=== PATIENT | male | born 1935 | race Caucasian/White ===

== ENCOUNTER 2018-02-20 09:27 | Emergency (ER) | payer MEDICARE ==
[~2018-02-20] VITALS: Ht 157.5 cm; Wt 66.4 kg
[~2018-02-20 09:27] MED LIST: ACET325T49 PO; ASP81TEC PO; CARB1TAB6 PO; CARBIDOPA PO; CHOL100011 PO; DIVA250T2 PO; DULO30CA3 PO; Divalproex Sodium PO; ENLP5T PO; HYDR-3714 PO; LACTAID9000 UNIT PO; LEVODOPA PO; MAGN400O7 PO; PNT40TEC PO; PROPANOLOL PO; Propranolol Hcl PO; SENN-140 PO; SENN1TAB76 PO; SERT25TA PO; SMV20T PO; TRAM50TA2 PO; [UNRECOGNIZED DRUG - CODE] PO
--- NOTE | 2018-02-20 10:49 | Diagnostic Imaging Report ---
PATIENT HISTORY: Pain after fall. TECHNIQUE: Single frontal view of the pelvis. COMPARISON: 12/08/2015. FINDINGS: There is diffuse osteopenia. There is a left hip hemiarthroplasty. No hardware complication is seen. No acute fracture is seen in the pelvis, although the sacrum is suboptimally evaluated due to overlying bowel gas and osteopenia. There is calcific atherosclerosis. The femoral heads are well seated in the acetabula bilaterally. 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 IMPRESSION: 1. Osteopenia and left hip hemiarthroplasty without acute osseous abnormality seen on this single view of the pelvis. Dictated by: Dictated on workstation # [id number]
--- NOTE | 2018-02-20 10:55 | Diagnostic Imaging Report ---
INDICATION: Fall, low back pain radiating to the bilateral upper legs. TECHNIQUE: 2 views of the bilateral femurs. COMPARISON: 12/08/2015 and 08/24/2015 FINDINGS: There is diffuse osteopenia. The proximal right femur has a somewhat coxa vera appearance, but no acute fracture is seen. Alignment appears normal with the femoral head well-seated in the acetabulum. There is calcific atherosclerosis. The left hip demonstrates a hemiarthroplasty with no hardware complication seen. Alignment of the left femur appears normal with no acute fracture seen. There is calcific atherosclerosis present. IMPRESSION: No acute osseous abnormality is seen in the bilateral femurs. There is a left hip arthroplasty without hardware complication seen. Dictated by: Dictated on workstation # [id number]
--- NOTE | 2018-02-20 10:59 | ED Fall/Injury ---
General Chief Complaint: Trauma-Non Activation Stated Complaint: FELL,LOWER BACK PAIN Nursing Triage Note: PT TO RM 3 IN A W/C WITH CC OF LOW BACK PAIN A FALL GETTING OUT OF BED THIS A.M. PAIN RADIATES INTO BOTH UPPER LEGS. 1000 MG TYLENOL AFTER THE FALL. Source: patient, family History of Present Illness Date Seen by Provider: Feb 20, 2018 Time Seen by Provider: 09:32 Initial Comments PT ARRIVES VIA POV FROM HOME, WITH SON AND DAUGHTER. PT LIVES WITH SON PT STATES HE FELL GETTING OUT OF BED THIS MORNING, STATES HE LANDED HARD ON HIS BUTT OCCURRED AROUND [id number] THIS MORNING DID NOT HIT HEAD AND NO LOSS OF CONSCIOUSNESS C/O LOWER BACK PAIN , AND IS WORSE WITH STANDING. DOES HAVE CHRONIC LOWER BACK PAIN STATES BOTH THIGHS HURT WHEN HE STANDS NO PARESTHESIAS OR MOTOR DEFICITS NO PROBLEMS URINATING DENIES ANY OTHER INJURIES OR AREAS OF PAIN PT NORMALLY USES A WALKER, BUT ALSO HAS A WHEELCHAIR AT HOME PCP: DR. AKHTAR ORTHOPEDIC SURGEON: DR. AGUAYO Allergies and Home Medications Allergies Coded Allergies: Cobamamide (Unverified Allergy, Unknown, MEMORY LOSS, 01/18/14) cyanocobalamin (Unverified Allergy, Unknown, MEMORY LOSS, 01/18/14) fentanyl (Verified Allergy, Unknown, 12/08/15) morphine (Verified Allergy, Unknown, 12/08/15) codeine (Unverified Adverse Reaction, Mild, SICK, 08/23/15) promethazine HCl (Unverified Adverse Reaction, Mild, LOSS OF MEMORY, ) hydrocodone (Verified Adverse Reaction, Unknown, 12/08/15) low blood pressure Uncoded Allergies: narcotics (Adverse Reaction, Unknown, 12/08/15) Home Medications Acetaminophen 325 Mg Tablet, 325-650 MG PO Q6H PRN for Temp over 100 F or Mild Pain Prescribed by: NAPOLEON AKHTAR on 08/30/15 0847 Aspirin 81 Mg Tabec, 81 MG PO DAILY, (Reported) Carbidopa/Levodopa 1 Each Tablet, 1 EACH PO DAILY Prescribed by: AKANKSHA ROCHA on 08/23/15 1810 Cholecalciferol 1,000 Unit Capsule, 5,000 UNIT PO DAILY, (Reported) Enalapril Maleate 5 Mg Tab, 5 MG PO BID Prescribed by: STEPHANIA DORSEY on 02/24/15 1347 Pantoprazole Sod 40 Mg Tab, 40 MG PO HS, (Reported) Sennosides 8.6 Mg Tablet, 8.6 MG PO BID Prescribed by: NAPOLEON AKHTAR on 08/30/15 0847 Sertraline HCl 25 Mg Tablet, 25 MG PO HS take 1/2 tab at hs Prescribed by: AKANKSHA ROCHA on 08/23/15 1808 Simvastatin 20 Mg Tab, 20 MG PO HS, (Reported) Tramadol HCl 50 Mg Tablet, 50 MG PO Q4H Prescribed by: MEREDITH SHAW on 02/20/18 1138 [Divalproex Sodium] 250 MG TAB, 250 MG PO BID Prescribed by: STEPHANIA DORSEY on 02/24/15 1347 [Propranolol Hcl] 20 MG TABLET, 40 MG PO BID Prescribed by: AKANKSHA ROCHA on 08/23/15 180 Patient Home Medication List Home Medication List Reviewed: Yes Review of Systems Constitutional: no symptoms reported Respiratory: no symptoms reported Cardiovascular: no symptoms reported Gastrointestinal: no symptoms reported Genitourinary: no symptoms reported Musculoskeletal: see HPI Skin: no symptoms reported Psychiatric/Neurological: No Symptoms Reported Past Vsfkyyb-Rprdbo-Phpppm Hx Patient Social History Alcohol Use: Denies Use Recreational Drug Use: No Smoking Status: Former Smoker Former Smoker, Quit: December 10, 1986 Recent Foreign Travel: No Contact w/Someone Who Travel: No Recent Infectious Disease Expo: No Recent Hopitalizations: No Immunizations Up To Date Tetanus Booster (TDap): Unknown Date of Pneumonia Vaccine: May 17, 2012 Date of Influenza Vaccine: May 12, 2015 Seasonal Allergies Seasonal Allergies: No Past Medical History Surgeries: Yes (LT HIP FX/HEMIARTHROPLASTY; LEFT 4TH FINGER AMPUTATION; CATARACTS; UMBILICAL HERNIA REPAIR; HIATAL HERNIAR REPAIR; LEFT THUMB TENDON REPAIR; ATRIAL CLIP PROCEDURE) Abdominal, Amputation, Eye Surgery, Joint Replacement, Orthopedic, Pacemaker Respiratory: Yes Asthma Cardiac: Yes (PACEMAKER; ATRIAL CLIP PROCEDURE XCLIP DISSOLVS) Hypertension Neurological: Yes (CVA WITH LEFT SIDE WEAKNESS, DYSPHASIA AND DYSPHAGIA AND POOR COORDINATION) Parkinson's Disease, Stroke Reproductive Disorders: No Sexually Transmitted Disease: No HIV/AIDS: No Genitourinary: Yes Benign Prostatic Hyperpl, Prostate Problems, Kidney Stones Gastrointestinal: Yes (LACTOSE INTOLERANT; HIATAL AND UMBILICAL HERNIA REPAIRS) Abdominal Hernia, Gastroesophageal Reflux, Chronic Constipation, Hiatal Hernia, Ulcer Musculoskeletal: Yes (LEFT HIP FX; LEFT 4TH FINGER AMPUTATION; L1 COMPRESSION FRACTURE; FREQUENT FALLS) Degenerate Disk Disease, Arthritis, Chronic Back Pain, Fractures Endocrine: No HEENT: Yes (DYSPHAGIA FROM CVA; CATARACTS/LENS IMPLANTS) Cataract Hearing Impairment: Denies Cancer: No 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) Depression Integumentary: Yes (RASH IN SUMMER AT TIMES) Pruritis Blood Disorders: No Adverse Reaction/Blood Tranf: No Family Medical History Cancer G8 BROTHER G8 BROTHER G8 SISTER Cancer of colon G8 BROTHER Cataract 19 FATHER Congestive heart failure 19 FATHER Family history: Allergy DAUGHTER Family history: Alzheimer's disease 19 FATHER Family history: Breast disease G8 SISTER No Family History of: Abdominal aortic aneurysm Sacaton's disease Alcoholism Aphasia Chest pain Congenital heart disease Cystic fibrosis Dementia Dysphagia Family history: Arthritis Family history: Asthma Family history: Cardiovascular disease Family history: Coronary thrombosis Family history: Diabetes mellitus Family history: Gastrointestinal disease Family history: Glaucoma Family history: Hypertension Family history: Osteoporosis Family history: Thyroid disorder Headache Hearing loss Heart disease Hereditary disease History of - anemia History of - disorder History of - respiratory disease History of drug abuse Human immunodeficiency virus (HIV) seropositivity Hypercholesterolemia Infertile Kidney disease Malignant neoplasm of lung Myocardial infarction Parkinson's disease Prostate cancer Psychotic disorder Seizure disorder Stroke Tuberculosis Visual impairment Physical Exam Vital Signs Vital Signs - First Documented 02/20/18 09:40 Temp 98.3 Pulse 63 Resp 20 B/P (MAP) 126/90 (102) Pulse Ox 93 O2 Delivery Room Air Capillary Refill : Less Than 3 Seconds Height, Weight, BMI Height: 5'2.00" Weight: 146lbs.6.40oz.66.762259vw; 21.09 BMI Method:Stated General Appearance: WD/WN, no apparent distress Neck: non-tender, full range of motion Cardiovascular: regular rate, rhythm, no murmur Respiratory: normal breath sounds Gastrointestinal: soft Back: no CVA tenderness, vertebral tenderness (LUMBAR AND SACARAL AND POSTERIOR ILIAC AREAS. ) Extremities: non-tender, no pedal edema, no calf tenderness, normal capillary refill Neurologic/Psychiatric: meteorological aide II-XII nml as tested, no motor/sensory deficits, alert, normal mood/affect, oriented x 3 Skin: normal color, warm/dry, other (NO EXTERNAL EVIDENCE OF TRAUMA) Progress/Results/Core Measures Results/Orders My Orders Orders - MEREDITH SHAW DO Ct Thoracic/Lumbar Spine Wo (02/20/18 09:37) Pelvis (02/20/18 09:37) Femur, Bilateral, 2 Views (02/20/18 09:41) Ketorolac Injection (Toradol Injection) (02/20/18 11:45) Tramadol Tablet (Ultram Tablet) (02/20/18 11:45) Medications Given in ED Current Medications Medications Dose Ordered Sig/Oliverio Route Start Time Stop Time Status Last Admin Dose Admin Ketorolac Tromethamine 60 mg ONCE ONCE IM 02/20/18 11:45 02/20/18 11:46 DC 02/20/18 11:51 60 MG Tramadol HCl 50 mg ONCE ONCE PO 02/20/18 11:45 02/20/18 11:46 DC 02/20/18 11:51 50 MG Vital Signs/I&O 02/20/18 02/20/18 02/20/18 09:40 11:51 11:51 Temp 98.3 98.3 98.3 Pulse 63 Resp 20 B/P (MAP) 126/90 (102) Pulse Ox 93 O2 Delivery Room Air Blood Pressure Mean: 102 Progress Progress Note : Progress Note FAMILY IS COMFORTABLE TAKING PT HOME FAMILY REPORTS THAT PT DOES NOT DO WELL WITH NARCOTICS. HAS TAKEN TRAMADOL WITHOUT PROBLEMS Diagnostic Imaging Comments XRAYS OF BILATERAL FEMURS--NO ACUTE PROCESS, LEFT HIP HARDWARE IN PLACE PELVIS XRAY--NO ACUTE PROCESS PER RADIOLOGIST REPORTS @ 1059 CT THORACIC AND LUMBAR SPINE--LEFT SACRAL ALA FRACTURE, NON-DISPLACED. OLD/ STABLE L1 COMPRESSION FRACTURE, DEGENERATIVE CHANGES OF SPINE--PER RADIOLOGIST REPORT @ 1125 Reviewed: Reviewed by Me Departure Impression Primary Impression: Status post fall Additional Impressions: FRACTURE LEFT SACRAL ALA CHRONIC COMPRESSSION FRACTURE L1 Disposition: HOME, SELF-CARE Condition: Stable Departure-Patient Inst. Referrals: REFUGIO AGUAYO MD, JACQUELINE S DO (PCP/Family) Primary Care Physician Patient Instructions: Coccyx Fracture (DC), Vertebral Compression Fracture (DC) Add. Discharge Instructions: USE YOUR WALKER AT ALL TIMES GET UP AND WALK SEVERAL TIMES A DAY FOLLOW UP WITH DR. AGUAYO IN A FEW DAYS FOR FURTHER CARE--CALL TODAY FOR APPOINTMENT All discharge instructions reviewed with patient and/or family. Voiced understanding. Scripts [Donut Seat Cushion] No Conflict Check DAILY PRN for Pain, #1 Prov: MEREDITH SHAW DO 02/20/18 Tramadol HCl (Ultram) 50 Mg Tablet 50 MG PO Q4H, #20 TAB Prov: MEREDITH SHAW DO 02/20/18 MEREDITH SHAW DO Feb 20, 2018 10:59
--- NOTE | 2018-02-20 11:17 | Diagnostic Imaging Report ---
PATIENT HISTORY: Fall with low back pain radiating into the legs. TECHNIQUE: Noncontrast axial CT of the thoracic and lumbar spine was performed, with sagittal and coronal reformats. COMPARISON: CT from 08/24/2015. FINDINGS: CT thoracic spine: There is mild left convex curvature of the upper thoracic spine centered at T3, with no spondylolisthesis seen. There is diffuse osteopenia. The vertebral body heights are generally preserved. There are mild multilevel degenerative changes. No significant spinal canal or foraminal stenosis is seen. There is atelectasis in the bilateral lungs. No paraspinous masses are seen. CT lumbar spine: There is a chronic mild compression deformity of L1 which appears unchanged. This causes minimal 2 mm retropulsion without significant spinal canal stenosis. No spinal canal stenosis is seen throughout the lumbar spine, although there is mild neuroforaminal narrowing at L3-L4 and L4-L5 bilaterally. No acute fractures seen in the lumbar spine. There is a nondisplaced fracture of the left sacral ala, in zone 1. No definite right sacral fracture is seen. There is calcific atherosclerosis. Nonobstructing calculi are seen in the left kidney. There is a 2.5 x 1.4 cm left adrenal nodule which appears stable since 2015. IMPRESSION: 1. Nondisplaced fracture of the left sacral ala. No definite fracture is seen in the right sacrum, however if clinically indicated, MRI could be performed. 2. Chronic mild compression deformity of L1 appears unchanged. No new compression fracture is seen in the thoracic or lumbar spine. 3. Mild multilevel degenerative changes with no significant spinal canal stenosis. Dictated by: Dictated on workstation # [id number]
[2018-02-20] MEDS ORDERED: TRAM-42 PO (11:38)
[2018-02-20] MEDS ORDERED: [UNRECOGNIZED DRUG - SUPPLY] (11:40)
[2018-02-20] MEDS ORDERED: KETOROLAC 60 MG/2 ML VIAL IM ONE (11:45)
[2018-02-20 13:18] VITALS: BP 122/84
[2018-03-18] MEDS ORDERED: METO-387 PO (13:15)
== END 2018-02-20 13:18 | disposition home or self-care (01) ==
LOC: EDUNIT# 09:27 → ER 09:29
DX: S32.010A Wedge compression fracture of first lumbar vertebra, initial encounter for closed fracture (principal); S32.19XA Other fracture of sacrum, initial encounter for closed fracture; J45.909 Unspecified asthma, uncomplicated; I10 Essential (primary) hypertension; G20 Parkinson's disease; F32.9 Major depressive disorder, single episode, unspecified; K21.9 Gastro-esophageal reflux disease without esophagitis; Z87.19 Personal history of other diseases of the digestive system; Z80.0 Family history of malignant neoplasm of digestive organs; Z87.448 Personal history of other diseases of urinary system; Z82.49 Family history of ischemic heart disease and other diseases of the circulatory system; Z87.442 Personal history of urinary calculi; Z86.73 Personal history of transient ischemic attack (TIA), and cerebral infarction without residual deficits; Z88.5 Allergy status to narcotic agent; Z88.8 Allergy status to other drugs, medicaments and biological substances; Z79.82 Long term (current) use of aspirin; Z87.891 Personal history of nicotine dependence; Z96.642 Presence of left artificial hip joint; Z89.022 Acquired absence of left finger(s); Z98.890 Other specified postprocedural states; Z95.0 Presence of cardiac pacemaker; W06.XXXA Fall from bed, initial encounter
CPT/HCPCS: 72128; 72131; 72170; 96372

== ENCOUNTER 2018-03-03 14:39 | Inpatient (IN) | payer MEDICARE ==
[~2018-03-03] VITALS: Ht 162.6 cm; Wt 75.4 kg
[~2018-03-03 14:39] MED LIST changes: +TRAM-42 PO; +[UNRECOGNIZED DRUG - SUPPLY]
--- OUTSIDE RECORDS SUMMARY | 2018-03-03 14:43 | XMS REPORT | Clinical Summary ---
Author Author [facility] Organization [facility] Address Unknown Phone Unavailable Care Team Providers Care General Utility Machine Operator Name Role Phone Jailene Sneed MD PCP Miriam Kang MD [address] Unavailable Unavailable Brigid Aquino RN Unavailable Unavailable Hyun Talbert RN Unavailable Unavailable Source Comments Some departments are not documenting in the electronic medical record. If you do not see the information that you expected, contact Release of Information in the Health Information Management department at [phone] for further assistance in locating additional records.[facility] Allergies Active Allergy Reactions Severity Noted Date Comments Cyanocobalamin-Cobamamide MENTAL STATUS CHANGES 05/04/2011 Family states causes severe mental status changes for weeks Codeine NAUSEA AND VOMITING 05/04/2011 All narcotics. Family states patient is not able to vomit so avoid any narcotics/meds that make him nauseous Morphine NAUSEA AND VOMITING 05/21/2011 Promethazine MENTAL STATUS CHANGES 05/04/2011 Family states causes severe mental status changes for "months" Current Medications Prescription Sig. Disp. Refills Start End Date Status Date enalapril (VASOTEC) 5 mg Take 5 mg by mouth twice Active PO tablet daily. simvastatin (ZOCOR) 20 mg Take 20 mg by mouth at Active PO tablet bedtime daily. sertraline (ZOLOFT) 25 mg Take 25 mg by mouth at Active PO tablet bedtime daily. aspirin EC 81 mg PO Take 81 mg by mouth Active tablet daily. divalproex (DEPAKOTE) 250 Take by mouth as Active mg tablet directed. 250 mg in AM, 500 mg in PM cholecalciferol (Vitamin Take by mouth as Active D3) (VITAMIN D-3) 1,000 directed. 3000 units in units tablet AM, 2000 units in PM LACTOSE PO Take by mouth as Needed. Active Active Problems Problem Noted Date Seizures ([facility]) 01/19/2014 Overview: Mini seizures with mental status changes without depakote At high risk for falls 01/14/2014 Overview: 01/14/14 high fall risk. Patient and family were given the [facility] "What You Can Do To Prevent Falls" brochure. Patient will be accompanied by a staff member while ambulating in clinic. High fall risk status will be communicated to receiving staff if patient visits another department while under [facility] staff care. Patient verbalizes an understanding. Last Assessment & Plan: 01/14/14 high fall risk. Patient and family were given the [facility] "What You Can Do To Prevent Falls" brochure. Patient will be accompanied by a staff member while ambulating in clinic. High fall risk status will be communicated to receiving staff if patient visits another department while under [facility] staff care. Patient verbalizes an understanding. CAD (coronary artery disease) 01/14/2014 Overview: 2010 CCTA moderate coronary calcium noted 01/14/14 Cardiac cath, echo, CTA, pulm fxn, evaluation for BINH clip 01/14/14: Cardiac cath: non obstructive CAD, 30% proximal LAD otherwise stable. EF 40-45%, anterior HK. Atrial fibrillation ([facility]) 01/14/2014 Cardiac pacemaker in situ 12/30/2012 Overview: 04/19/2011 24hr Holter: Max HR 97, Min HR 36, Avg HR 54. Freq unifocal PVCs. Marked SB w/ freq pauses, max pause 2.5sec. Second-degree atrioventricular block; Wenckebach phenomenon 05/21/2011 - dual chamber [employer] Osvaldo pacemaker implantation L ast Assessment & Plan: 4 episodes atrial flutter lasting seconds since last check. Pt does not feel AF with PPM. 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 06/05/12 CXR - Unchanged moderate elevation of the hemidiaphragm without acute disease in chest. L ast Assessment & Plan: Pt's daughter, Bette, would like Dr. Wilson to let her know which access he'll use for ArtiClip when this is known. As legal guardian, Bette requests the final copies of all studies completed this hospitalization including lab. Paroxysmal atrial fibrillation (HCC) 2012 Overview: 08/01/11- Pt worked up for Lariat but not a candidate due to anatomy 06/05/12 - Relatively low AFib burden. Most episodes less than 2 minutes or so. May be a candidate for [employer]do plug study in the future. 12/30/12 - Afib burden continues to be overall low. However concern over anticoagulation if burden increases. Referred to CTS - Dr. Wilson for consideration of Atriclip. 02/10/13 - Dr. Wilson determined pt would be a candidate for an Atriclip procedure. Pt requests time to make decision regarding going forward with surgery. 12/08/13 Paroxysmal atrial fibrillation with a prior history of hemorrhagic stroke, not on any anticoagulation: His overall arrhythmia burden is low but still with his risk factors being so high, an embolic event is still a great possibility. 01/15/14 Dr Wilson left VATS with placement of AtriClip L ast Assessment & Plan: 1. Pre-procedure instructions were reviewed and questions answered. 2. Prelab was reviewed as above 3. Pre procedure EKG completed revealing LBBB vs ventricular pacing rhythm. PPM check revealed 4 episodes of atrial flutter lasting seconds. 4. The patient is accompanied by his legal guardian & daughter, Bette Swift, cell #[phone]. She works in a primary care office in [place]. Very knowledgeable & helpful. 5. The patient was taken to the [facility] Admitting office at 9:15. 6. Patient is a high fall risk s/p CVA with left sided weakness & neglect. 7. Note ARMIJO at about 50 yards with left diaphragm elevation. OK to lie flat & on his sides without dyspnea. 8. Note: Mini seizures & confusion without depakote. 9. Note: allergies to codeine, morphine & phenergan. No known difficulties with anesthesias. Hypertension 05/03/2011 Overview: Vasotec 5mg BID L ast Assessment & Plan: Blood pressure to goal on current therapy. History of intracranial hemorrhage 05/03/2011 Overview: 07/25/2008, Right sided hemorrhage. Left sided hemiplegia including decreased vision & neglect Hyperlipidemia 05/03/2011 Overview: zocor 20mg one po daily L ast Assessment & Plan: Per his report, lipids are managed by Dr. Quiñonez's office. Osteoarthritis 05/03/2011 History of hemorrhagic stroke with residual 05/03/2011 Overview: 07/25/2008 secondary to intracranial hemorrhage Muscle weakness 05/03/2011 Overview: Located diffusely, >left Prostatic hypertrophy 05/03/2011 Overview: Previous surgery Family History Medical History Relation Name Comments High Cholesterol Daughter Bette Alzheimer's Father 92 yo Heart Failure Father 92 yo Cancer Half Brother colon Cancer Half Brother leukemia Cancer Half Sister breast High Cholesterol Son Racheal Relation Name Status Comments Daughter Bette Alive Father 92 yo Half Brother Alive Half Brother colon Half Brother leukemia Half Sister Alive Half Sister Alive Half Sister breast Alive Mother 32 yo Son Racheal Alive Social History Tobacco Use Types Packs/Day Years Used Date Former Smoker 1 18 Smokeless Tobacco: Never Used Tobacco Cessation: Counseling Given: No Alcohol Use Drinks/Week oz/Week Comments No Sex Assigned at Date Recorded Not on file Last Filed Vital Signs Vital Sign Reading Time Taken Blood Pressure 140/92 03/23/2014 10:47 AM CDT Pulse 62 03/23/2014 10:47 AM CDT Temperature 36.9 C (98.4 F) 01/17/2014 11:25 AM CDT Respiratory Rate - - Oxygen Saturation 97% 02/23/2014 12:54 PM CDT Inhaled Oxygen - - Concentration Weight 77.7 kg (171 lb 6.4 oz) 03/23/2014 10:47 AM CDT Height 160 cm (5' 3") 03/23/2014 10:47 AM CDT Body Mass Index 30.36 03/23/2014 10:47 AM CDT Plan of Treatment Health Maintenance Due Date Last Done Comments PHYSICAL (COMPREHENSIVE) 1944 EXAM PERTUSSIS VACCINE 1948 TETANUS VACCINE 1954 SHINGLES RECOMBINANT 12/30/1987 VACCINE (1 of 2) PNEUMONIA (PCV13/PPSV23) 2002 VACCINES (1 of 2 - PCV13) INFLUENZA VACCINE 05/12/2018 Results Not on filefrom Last 3 Months
--- OUTSIDE RECORDS SUMMARY | 2018-03-03 14:44 | XMS REPORT ---
Author Author Farrukh Johnson Organization [facility] Address [address] [place], [place] [id number] Care Team Providers Care Reservation Sales Agent Name Role Phone Farrukh Johnson PCP Unavailable Allergies and Adverse Reactions Name Reaction Notes Morphine Sulfate nausea Plan of Treatment Planned Activity Comments Planned Date Planned Time Plan/Goal ASSAY OF PSA TOTAL 10/18/2014 12:00 AM ASSAY OF PSA FREE 10/18/2014 12:00 AM ASSAY OF PSA TOTAL 05/22/2016 12:00 AM Medications Active Name Start Date Estimated Completion Date SIG Comments Mucinex 600 mg oral tablet extended release 12hr 08/10/2009 take 1 tablet (600 mg) by oral route every 12 hours Name Start Date Expiration Date SIG Comments Zoloft 50 mg oral tablet 07/18/2009 08/17/2009 1QD - TAKE ONE TABLET BY MOUTH EVERY DAY amlodipine 5 mg oral tablet 07/15/2009 08/14/2009 enalapril maleate 5 mg oral tablet 07/15/2009 08/14/2009 sertraline 50 mg oral tablet 07/18/2009 08/17/2009 Levaquin 750 mg oral tablet 08/10/2009 08/15/2009 take 1 tablet (750 mg) by oral route once daily for 5 days Vasotec 5 mg oral tablet 08/11/2009 09/10/2009 1QD - TAKE ONE TABLET BY MOUTH EVERY DAY Problem List Description Status Onset Benign Hypertrophy of Prostate (BPH) Active 07/06/2014 Slowing of Urinary Stream Active 10/18/2014 Benign non-nodular prostatic hyperplasia without lower urinary tract symptoms Active 04/28/2015 Frequent urination Active 11/17/2015 Adenofibromatous hypertrophy of prostate Active 11/17/2015 Vital Signs Date Time BP-Sys(mm[Hg] BP-Indira(mm[Hg]) HR(bpm) RR(rpm) Temp WT HT HC BMI BSA BMI Percentile O2 Sat(%) 11/17/2015 11:14:00 AM 157 lbs 64 in 26.95 kg/m2 1.79 m2 04/28/2015 12:01:00 PM 176 lbs 64 in 30.21 kg/m 1.8987 m 10/18/2014 10:03:00 AM 175 lbs 64 in 30.04 kg/m2 1.89 m2 07/06/2014 10:43:00 AM 174 lbs 64 in 29.8667 kg/m 1.8878 m 08/10/2009 10:50:00 AM 122 mmHg 84 mmHg 56 bpm 20 rpm 96.8 F 179 lbs 65 in 29.79 kg/m2 1.93 m2 Social History Name Description Comments Quit Smoking History of Procedures Date Ordered Description Order Status 04/28/2015 12:00 AM ASSAY OF PSA TOTAL Reviewed 04/28/2015 12:28 PM URINALYSIS AUTO W/O SCOPE Reviewed 07/06/2014 11:10 AM URINALYSIS AUTO W/O SCOPE Reviewed Results Summary Data and Description Results 02/08/2009 12:00 AM PSA SerPl-mCnc 0.440 ng/mL 04/13/2009 12:00 AM Cholest Cry Stone Ql IR 205.0 % 08/10/2009 11:22 AM Colonoscopy-Women and Men over 50 Declined 07/06/2014 11:10 AM Bilirub Ur Ql Strip -ve Glucose Ur-sCnc -ve Hgb Ur Ql Strip -ve Ketones Ur Ql Strip -ve Nitrite Ur Ql Strip -ve pH Ur-LsCnc 6.0 Prot Ur Ql Strip -ve Sp Gr Ur Qn 1015 Urobilinogen Ur-mCnc -ve WBC Est Ur Ql Strip - ve 04/28/2015 12:28 PM Clarity Ur CLEAR Color Ur ----- Glucose Ur-sCnc -VE Bilirub Ur Ql Strip -VE Ketones Ur Ql Strip -VE Sp Gr Ur Qn 1015 Hgb Ur Ql Strip -VE pH Ur-LsCnc 6.0 Prot Ur Ql Strip -VE Urobilinogen Ur-mCnc -VE Nitrite Ur Ql Strip -VE WBC Est Ur Ql Strip -VE History Of Immunizations Not available. History of Past Illness Name Date of Onset Comments Bronchitis, Acute Aug 10 2009 11:00AM Hypertension Hyperlipidemia stroke Benign Hypertrophy of Prostate (BPH) 07/06/2014 Slowing of Urinary Stream 10/18/2014 Benign non-nodular prostatic hyperplasia without lower urinary tract symptoms 04/28/2015 Frequent urination 11/17/2015 Adenofibromatous hypertrophy of prostate 11/17/2015 Mild Benign Hypertrophy of Prostate (BPH) Jul 06 2014 10:45AM Benign hypertrophy of prostate Oct 18 2014 10:10AM Slowing of Urinary Stream Oct 18 2014 10:10AM Benign prostatic hypertrophy Apr 28 2015 11:48AM Benign non-nodular prostatic hyperplasia without lower urinary tract symptoms Apr 28 2015 12:01PM Adenofibromatous hypertrophy of prostate Nov 17 2015 11:15AM Frequent urination Nov 17 2015 11:15AM BPH (benign prostatic hypertrophy) May 22 2016 3:53PM Screening for prostate cancer May 22 2016 3:53PM Frequent urination May 22 2016 3:53PM Payers Insurance Name Company Name Plan Name Plan Number Policy Number Policy Group Number Start Date Medicare Part B Medicare Of [place] [id number] December BCBS [facility] [id number] Sunday, 2008 History of Encounters Visit Date Visit Type Provider 11/17/2015 Office visit V Siobhan Johnson MD 04/28/2015 Office visit V Siobhan Johnson MD 10/18/2014 Office visit V Siobhan Johnson MD 07/06/2014 Office visit V Siobhan Johnson MD 01/29/2010 Laboratory Bobby Burns MD 11/17/2009 Nurse visit Saul Villeda DO 08/10/2009 Office visit Caryl POSADA 04/13/2009 Laboratory Saul Villeda DO
--- OUTSIDE RECORDS SUMMARY | 2018-03-03 14:44 | XMS REPORT ---
Author Author Farrukh Johnson Organization [facility] Address [address] [place], [place] [id number] Care Team Providers Care Astrophysics Teacher Name Role Phone Farrukh Johnson PCP Unavailable Allergies and Adverse Reactions Name Reaction Notes Morphine Sulfate nausea Plan of Treatment Planned Activity Comments Planned Date Planned Time Plan/Goal PSA screening 10/18/2014 12:00 AM PSA screening 10/18/2014 12:00 AM Medications Active Name Start Date [...] 11/17/2015 Adenofibromatous hypertrophy of prostate Active 11/17/2015 Chronic right-sided low back pain without sciatica Active 06/13/2016 Urgency of micturition Active 06/18/2017 Frequency of micturition Active 06/18/2017 Vital Signs Date Time BP-Sys(mm[Hg] BP-Indira(mm[Hg]) HR(bpm) RR(rpm) Temp WT HT HC BMI BSA BMI Percentile O2 Sat(%) 06/18/2017 10:50:00 AM 138 mmHg 80 mmHg 70 bpm 18 rpm 164 lbs 64 in 28.15 kg/m2 1.83 m2 96 % 06/13/2016 9:19:00 AM 157 lbs 64 in 26.9487 kg/m 1.7932 m 11/17/2015 11:14:00 AM 157 lbs 64 in [...] 12:28 PM URINALYSIS AUTO W/O SCOPE Reviewed 05/22/2016 12:00 AM ASSAY OF PSA TOTAL Reviewed 06/13/2016 10:08 AM URINALYSIS AUTO W/O SCOPE Reviewed 07/06/2014 11:10 AM URINALYSIS AUTO W/O SCOPE Reviewed Results Summary Date and Description Results 07/06/2014 11:10 AM Bilirub Ur Ql Strip [...] -VE WBC Est Ur Ql Strip -VE 06/11/2016 2:40 PM PSA TOTAL 0.420 ng/mL History Of Immunizations Not available. History of Past Illness Name Date of Onset Comments Bronchitis, Acute Aug 10 2009 11:00AM Hypertension Hyperlipidemia stroke Benign Hypertrophy of Prostate (BPH) 07/06/2014 Slowing of Urinary Stream 10/18/2014 Benign non-nodular prostatic hyperplasia without lower urinary tract symptoms 04/28/2015 Frequent urination 11/17/2015 Adenofibromatous hypertrophy of prostate 11/17/2015 Chronic right-sided low back pain without sciatica 06/13/2016 Urgency of micturition 06/18/2017 Frequency of micturition 06/18/2017 Mild Benign Hypertrophy of Prostate (BPH) Jul [...] 3:53PM Frequent urination May 22 2016 3:53PM Adenofibromatous hypertrophy of prostate Jun 13 2016 9:20AM Frequent urination Jun 13 2016 9:20AM Chronic right-sided low back pain without sciatica Jun 13 2016 9:20AM Adenofibromatous hypertrophy of prostate Jun 18 2017 10:53AM Frequency of micturition Jun 18 2017 10:53AM Urgency of micturition Jun 18 2017 10:53AM Payers Insurance Name Company Name Plan Name Plan Number Policy Number Policy Group Number Start Date Medicare Part B Medicare [facility] [id number] December [facility] [id number] Sunday, 2008 History of Encounters Visit Date Visit Type Provider 06/18/2017 Office visit Farrukh Johnson MD 06/13/2016 Office visit V Siobhan Johnson MD 11/17/2015 Office visit V Siobhan Johnson MD 04/28/2015 Office visit Farrukh Johnson MD 10/18/2014 Office visit Farrukh Johnson MD 07/06/2014 Office visit Farrukh Johnson MD 01/29/2010 Laboratory Bobby Burns MD 11/17/2009 Nurse visit Saul Villeda DO 08/10/2009 Office visit Caryl POSADA 04/13/2009 Laboratory Saul Villeda DO
--- OUTSIDE RECORDS SUMMARY | 2018-03-03 14:44 | XMS REPORT ---
Author Author Farrukh Johnson Organization [facility] Address [address] [place], [place] [id number] Care Team Providers Care Wrecking Car Driver Name Role Phone Farrukh Johnson PCP Unavailable Allergies and Adverse Reactions Name Reaction Notes Morphine Sulfate nausea Plan of Treatment Planned Activity Comments Planned Date Planned Time Plan/Goal ASSAY OF PSA TOTAL 04/28/2015 12:00 AM ASSAY OF PSA TOTAL 10/18/2014 12:00 AM ASSAY OF PSA FREE 10/18/2014 12:00 AM Medications Active Name Start [...] without lower urinary tract symptoms Active 04/28/2015 Vital Signs Date Time BP-Sys(mm[Hg] BP-Indira(mm[Hg]) HR(bpm) RR(rpm) Temp WT HT HC BMI BSA BMI Percentile O2 Sat(%) 04/28/2015 12:01:00 PM 176 lbs 64 in 30.21 kg/m2 1.90 m2 10/18/2014 10:03:00 AM 175 lbs 64 in 30.04 kg/m2 1.8933 m 07/06/2014 10:43:00 AM 174 lbs 64 in 29.8667 kg/m 1.8878 m 08/10/2009 10:50:00 AM 122 mmHg 84 mmHg 56 bpm 20 rpm 96.8 F 179 lbs 65 in 29.79 kg/m2 1.93 m2 Social History Name Description Comments Quit Smoking History of Procedures Date Ordered Description Order Status 04/28/2015 12:28 PM URINALYSIS AUTO W/O SCOPE [...] hyperplasia without lower urinary tract symptoms 04/28/2015 Mild Benign Hypertrophy of Prostate (BPH) Jul 06 2014 10:45AM Benign hypertrophy of prostate Oct 18 2014 10:10AM Slowing of Urinary Stream Oct 18 2014 10:10AM Benign prostatic hypertrophy Apr 28 2015 11:48AM Benign non-nodular prostatic hyperplasia without lower urinary tract symptoms Apr 28 2015 12:01PM Payers Insurance Name Company Name Plan Name Plan Number Policy Number Policy Group Number Start Date Medicare Part B Medicare Of [place] [id number] December [facility] [id number] Sunday, 2008 History of Encounters Visit Date Visit Type Provider 04/28/2015 Office visit V Siobhan Johnson MD 10/18/2014 Office visit V Siobhan Johnson MD 07/06/2014 Office visit V Siobhan Johnson MD 01/29/2010 Laboratory Bobby Burns MD 11/17/2009 Nurse visit Saul Villeda DO 08/10/2009 Office visit Caryl POSADA 04/13/2009 Laboratory Saul Villeda DO
--- OUTSIDE RECORDS SUMMARY | 2018-03-03 14:44 | XMS REPORT ---
Author Author Farrukh Johnson Organization [facility] Address [address] [place], [place] [id number] Care Team Providers Care Senior Ecologist Name Role Phone Farrukh Johnson PCP Unavailable [...] 07/06/2014 Slowing of Urinary Stream Active 10/18/2014 Vital Signs Date Time BP-Sys(mm[Hg] BP-Indira(mm[Hg]) HR(bpm) RR(rpm) Temp WT HT HC BMI BSA BMI Percentile O2 Sat(%) 10/18/2014 10:03:00 AM 175 lbs 64 in 30.04 kg/m2 1.89 m2 07/06/2014 10:43:00 AM 174 lbs 64 in 29.8667 kg/m 1.8878 m 08/10/2009 10:50:00 AM 122 mmHg 84 mmHg 56 bpm 20 rpm 96.8 F 179 lbs 65 in 29.79 kg/m2 1.93 m2 Social History Name Description Comments Quit Smoking History of Procedures Date Ordered Description Order Status 07/06/2014 11:10 AM URINALYSIS AUTO W/O SCOPE [...] WBC Est Ur Ql Strip - ve History Of Immunizations Not available. History of Past Illness Name Date of Onset Comments Bronchitis, Acute Aug 10 2009 11:00AM Hypertension Hyperlipidemia stroke Benign Hypertrophy of Prostate (BPH) 07/06/2014 Slowing of Urinary Stream 10/18/2014 Mild Benign Hypertrophy of Prostate (BPH) Jul 06 2014 10:45AM Benign hypertrophy of prostate Oct 18 2014 10:10AM Slowing of Urinary Stream Oct 18 2014 10:10AM Benign prostatic hypertrophy Apr 28 2015 11:48AM Payers Insurance Name Company Name Plan Name Plan Number Policy Number Policy Group Number Start Date Medicare Part B Medicare Of [place] [id number] December [facility] [id number] Sunday, 2008 History of Encounters Visit Date Visit Type Provider 04/28/2015 Office visit Farrukh Johnson MD 10/18/2014 Office visit Farrukh Johnson MD 07/06/2014 Office visit Farrukh Johnson MD 01/29/2010 Laboratory Bobby Burns MD 11/17/2009 Nurse visit Saul Villeda DO 08/10/2009 Office visit Caryl POSADA 04/13/2009 Laboratory Saul Villeda DO
--- OUTSIDE RECORDS SUMMARY | 2018-03-03 14:45 | XMS REPORT ---
Author Author Farrukh Johnson Organization [facility] Address [address] [place], [place] [phone] Care Team Providers Care Assistant Professor Of Theater Name Role Phone Farrukh Johnson PCP Unavailable [...] low back pain without sciatica Active 06/13/2016 Vital Signs Date Time BP-Sys(mm[Hg] BP-Indira(mm[Hg]) HR(bpm) RR(rpm) Temp WT HT HC BMI BSA BMI Percentile O2 Sat(%) 06/13/2016 9:19:00 AM 157 lbs 64 in 26.95 kg/m2 1.79 m2 11/17/2015 11:14:00 AM 157 lbs 64 in 26.9487 kg/m 1.7932 m 04/28/2015 12:01:00 PM 176 lbs 64 in 30.21 kg/m2 1.90 m2 10/18/2014 10:03:00 AM 175 lbs 64 in 30.04 kg/m2 1.8933 m 07/06/2014 10:43:00 AM 174 lbs 64 in 29.8667 kg/m 1.89 m2 08/10/2009 10:50:00 AM 122 mmHg 84 mmHg 56 bpm 20 rpm 96.8 F 179 lbs 65 in 29.79 kg/m2 1.9297 m Social History Name Description Comments Quit Smoking [...] right-sided low back pain without sciatica 06/13/2016 Mild Benign Hypertrophy of Prostate (BPH) Jul [...] pain without sciatica Jun 13 2016 9:20AM Payers Insurance Name Company Name Plan Name Plan Number Policy Number Policy Group Number Start Date Medicare Part B Medicare Of [place] [id number] [id number] Sunday, 2008 History of Encounters Visit Date Visit Type Provider 06/13/2016 Office visit V Siobhan Johnson MD 11/17/2015 Office visit V Siobhan Johnson MD 04/28/2015 Office visit V Siobhan Johnson MD 10/18/2014 Office visit V Siobhan Johnson MD 07/06/2014 Office visit Farrukh Johnson MD 01/29/2010 Laboratory Bobby Burns MD 11/17/2009 Nurse visit Saul Villeda DO 08/10/2009 Office visit Caryl POSADA 04/13/2009 Laboratory Saul Villeda DO
--- OUTSIDE RECORDS SUMMARY | 2018-03-03 14:45 | XMS REPORT ---
Author Author Farrukh Johnson Organization [facility] Address [address] [place], [place] [phone] Care Team Providers Care Piece Work Inspector Name Role Phone Farrukh Johnson PCP Unavailable [...] 11:15AM Frequent urination Nov 17 2015 11:15AM Payers Insurance Name Company Name Plan Name Plan Number Policy Number Policy Group Number Start Date Medicare Part B Medicare Of [place] [id number] December [employer] [facility] [id number] Sunday, 2008 History of Encounters Visit Date [...]
[2018-03-03 15:17] LABS: BILIRUBIN,URINE NEGATIVE (NEGATIVE); CLARITY,URINE CLEAR; COLOR,URINE AMBER; GLUCOSE, URINE (UA) NEGATIVE (NEGATIVE); KETONES,URINE NEGATIVE (NEGATIVE); LEUKOCYTE ESTERASE ,URINE 1+ (NEGATIVE); NITRITE,URINE NEGATIVE (NEGATIVE); PH,URINE 5 (5-9); PROTEIN,URINE NEGATIVE (NEGATIVE); UROBILINOGEN,URINE NORMAL (NORMAL)
--- NOTE | 2018-03-03 15:30 | Physical Therapy Evaluation ---
PT Evaluation-General Medical Diagnosis Admission Date Mar 03, 2018 at 14:39 Medical Diagnosis: coccyx fracture with left sided pain Onset Date: Feb 20, 2018 Therapy Diagnosis Therapy Diagnosis: generalized weakness/debility Height/Weight Height (Feet): 5 Height (Inches): 2.00 Weight (Pounds): 146 Weight (Ounces): 6.40 Precautions Precautions/Isolations: Standard Precautions Weight Bear Status Right Lower Extremity: Right Full Weight Bearing Left Lower Extremity: Left Full Weight Bearing Referral Physician: Axel Reason for Referral: Evaluation/Treatment Medical History Pertinent Medical History: Atrial Fib, Arthritis, CAD, CVA, GERD, HTN, OA, Parkinson's, Smoking Current History Direct admit from home secondary to fall last week resulting in coccyx fracture and minimal pain control. Inability to care for self. Reviewed History: Yes Social History Home: Single Level Current Living Status: Other Family Entry Into Home: Ramp, Stairs With Railing PT Steps Into Home: 3 Prior/Core FIM Prior Level of Function Functional [place] Measure 0=Not Assessed/NA 4=Minimal Assistance 1=Total Assistance 5=Supervision or Setup 2=Maximal Assistance 6=Modified [place] 3=Moderate Assistance 7=Complete [place] Bed Mobility: 5 Transfers (B,C,W/C) (FIM): 5 Gait: 2 Wheelchair Mobility: 5 ambulates short distances only PLOF/utilizes w/c for mobility/son assist with ADL's PLOF PT Evaluation-Current Subjective Patient rates left LE pain 8/10. RN aware. Pain Numeric Pain Scale: 8 Location: Left Location Body Site: Hip Pain Description: Ache, Acute, Sharp Pt/Family Goals return to home with son Objective Patient Orientation: Normal For Age Problem Solving: Fair ROM/Strength ROM Lower Extremities bilateral LE WNL Strenght Lower Extremities left knee flexion/extension 3-/5; hip flexion NT due to pain/DF/PF 3-/5 right knee flexion/extension 3/5; hip flexion NT due to pain/DF/PF 3/5 Integumentary/Posture Integumentary refer to nursing notes Bowel Incontinence: No Bladder Incontinence: No Posture slightly kyphotic Neuromuscular (Tone, Coordination, Reflexes) noted left neglect/Parkinson's gait sequence/deconditioned Sensory Vision: Wears Glasses Hearing: Impaired Sensation Right Lower Extremit: Impaired Sensation Left Lower Extremity: Impaired Transfers Functional [place] Measure 0=Not Assessed/NA 4=Minimal Assistance 1=Total Assistance 5=Supervision or Setup 2=Maximal Assistance 6=Modified [place] 3=Moderate Assistance 7=Complete IndependenceIRFPAI Quality Coding Scale 6 Independent with activity with or without an assistive device 5 Patient requires set up or clean up by helper. Patient completes activity by themselves 4 Supervision or touching assist (CGA). Partridge provide cues , steadying assist 3 The helper provides less than half the effort to complete the activity 2 The helper provides more than half the effort to complete the activity 1 Dependent. The helper does all the effort to complete an activity 7 Patient refused to complete or attempt activity 9 The patient did not perform the activity before the current illness or injury 88 Not attempted due to Medical conditions or safety concerns Transfers (B, C, W/C) (FIM): 4 Scootin Rollin Roll Left to Right (QC): 4 Supine to/from Sit: 4 Sit to/from Stand: 4 bed t/f WC(FIM only if WC use): 4 Sit to Lying (QC): 4 Lying to Sitting/Side of Bed(Q: 4 Sit to Stand (QC): 4 Chair/Ilg-hf-Fbddo Xfer(QC): 4 Car Transfer (QC): 5 impulsive to sit from stand position/diminished safety awareness with mobility Gait Does the Patient Walk?: Yes Mode of Locomotion: Both Anticipated Mode of Locomotion: Both Gait (FIM): 1 Distance (FIM): 1=up to 49 ft Walk 10 feet (QC): 4 Walk 50 ft with 2 Turns(QC): 9 Walk 150 ft (QC): 9 Walking 10ft/uneven surface-QC: 4 Distance: 30' x 2 Gait Level of Assist: 4 Gait Persons Needed: 1 Gait Assistive Device: FWW Comments/Gait Description slow, shuffle gait sequence Wheelchair Training Does the Pt Use a Wheelchair?: Yes Stairs Stairs (FIM): 1 #of Steps: 1 Level of Assist: 4 1 Step (curb) (QC): 4 4 Steps (QC): 9 Assistive Device: Walker 12 Steps (QC): 9 Balance Sitting Static: Normal Sitting Dynamic: Normal Standing Static: Fair Standing Dynamic: Fair Picking up an Object (QC): 5 Assessment/Needs 82 y.o. deconditioned male, will benefit from skilled PT to address functional strength and mobility to improve current LOF and to safely return to home with family at maximum LOF. Rehab Potential: Fair PT Jet Handler Goals Jet Handler Goals PT Senior Living Goals Time Frame: Mar 21, 2018 Transfers (B,C,W/C) (FIM): 6 Sit to Lying (QC): 6 Lying-Sitting on Side/Bed(QC): 6 Sit to Stand (QC): 6 Rollin Roll Left to Right (QC): 6 Chair/Mit-ke-Tidal Xfer(QC): 6 Car Transfer (QC): 6 Does the Patient Walk: Yes Gait (FIM): 2 Gait distance (FIM): 9=130-63 ft Distance: 125' Walk 10 feet (QC): 5 Walk 10ft-Uneven Surface(QC): 5 Walk 50ft with 2 Turns (QC): 5 Walk 150 ft (QC): 9 Gait Level of Assist: 5 Gait Assistive Device: FWW Does the Pt use WC or Scooter?: Yes Wheelchair (FIM): 5 Wheelchair distance (FIM): 3=150 ft Distance: 150' Wheelchair Level of Assist: 5 Wheel 50 feet with 2 turns (QC: 5 Stairs (FIM): 2 # of Steps: 4 1 Step (curb) (QC): 5 4 Steps (QC): 5 12 Steps (QC): 9 Stairs Level Of Assist: 5 Picking up an Object (QC): 5 PT Plan Problem List Problem List: Activity Tolerance, Functional Strength, Safety, Balance, Gait, Transfer, Bed Mobility Treatment/Plan Treatment Plan: Continue Plan of Care Treatment Plan: Bed Mobility, Concurrent Therapy, Education, Functional Activity Vandana, Functional Strength, Group Therapy, Gait, Safety, Therapeutic Exercise, Transfers Treatment Duration: Mar 21, 2018 Frequency: At least 5 of 7 days/Wk (IRF) Estimated Hrs Per Day: 1.5 hours per day Patient and/or Family Agrees t: Yes Safety Risks/Education Patient Education: Safety Issues Teaching Recipient: Patient Teaching Methods: Discussion Response to Teaching: Verbalize Understanding, Reinforcement Needed Discharge Recommendations Therapy D/C Recommendations: Home w/ Family Support, Physical Therapy Home Care Time/GCodes Time In: 1445 Time Out: 1515 Total Billed Treatment Time: 30 Total Billed Treatment 1 visit EVHighC 30 min G Codes Necessary: No RAMBO PAYTON PT Mar 03, 2018 15:30
[2018-03-03 15:39] LABS: BACTERIA,URINE NEGATIVE /HPF; SQUAMOUS EPITHELIAL CELL,UR 0-2 /HPF
[2018-03-03] MEDS ORDERED: SILV25CR21 TOP (15:56)
[2018-03-03] MEDS ORDERED: DIVA-74 PO (15:56)
[2018-03-03] MEDS ORDERED: TRAM50TA2 PO (15:56)
[2018-03-03] MEDS ORDERED: ACET325T38 PO (15:56)
[2018-03-03] MEDS ORDERED: SENN-140 PO (15:56)
[2018-03-03] MEDS ORDERED: PROP20TA5 PO (15:56)
[2018-03-03] MEDS ORDERED: CALC3.8S NS (15:56)
[2018-03-03] MEDS ORDERED: ASPI-983 PO (15:56)
[2018-03-03] MEDS ORDERED: CHOL5000 PO (15:56)
[2018-03-03] MEDS ORDERED: PANT40TA3 PO (15:56)
[2018-03-03] MEDS ORDERED: ENAL5TAB PO (15:56)
[2018-03-03] MEDS ORDERED: SIMV40TA4 PO (15:56)
[2018-03-03 16:05] VITALS: BP 93/65
[2018-03-03] MEDS ORDERED: ACET-168 PO (16:11)
[2018-03-03] MEDS ORDERED: SERT25TA5 PO (16:11)
[2018-03-03] MEDS ORDERED: MAGN400O7 PO (16:11)
[2018-03-03] MEDS ORDERED: CARB1TAB41 PO (16:11)
[2018-03-03] MEDS ORDERED: MILK OF MAGNESIA 400 MG/5 ML 30 ML UDC PO PRN (17:15)
[2018-03-03 17:45] VITALS: BP 94/55
--- NOTE | 2018-03-03 20:00 | HISTORY AND PHYSICAL ---
DATE OF SERVICE: 03/03/2018 CHIEF COMPLAINT: Difficulty with walking. 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 He was assessed in ED and his daughter and Dr. Sneed, PCP referred the patient here. The daughter lives in [place], [place]. Currently, the patient requires assistance for his ADLs and mobility skills. He complains of tailbone pain. He was diagnosed with Parkinson's back in 2014 and had a rehabilitation stay here in 02/2015 with good results. He also has a history of a right CVA with residual mild hemiparesis. He had been ambulating only short distances prior to this. He utilizes a wheelchair for mobility and has some assistance with his ADLs from his son. He had been a standby assist for bed mobility and transfers prior to all this. Currently, he is min assist for transfers, min assist for gait with walker. He complains of pain in the low back. He has some left-sided neglect. He wears glasses. He requires assistance for his ADLs as well. He knows that it is February. PAST MEDICAL HISTORY: Atrial fibrillation, hyperlipidemia, hypertension, right CVA with residual left-sided hemiparesis, upper limb > then lower limb, falls, osteoarthritis, BPH, Parkinson's, coronary artery disease, tobaccoism. He has had an atrial clip placed with cardiac pacemaker at [facility] in the past. PAST SURGICAL HISTORY: As per above. ALLERGIES: CODEINE, FENTANYL, HYDROCODONE, LACTOSE, MORPHINE, NARCOTICS, PROMETHAZINE. FAMILY HISTORY: Noncontributory. SOCIAL HISTORY: He is . Prior level of function as per above. Lives in a wheelchair accessible home in [place], [place] with his son. He has a supportive daughter that works for a local doctor in [place]. REVIEW OF SYSTEMS: A 10-point review of systems, patient's daughter requesting a UA due to some frequency. A culture is indicated, but bacteria is negative, leukocyte esterase is 1+. We will follow up with Dr. Sneed in the morning regarding this. The patient has a history of falls and left-sided weakness and tremors. His blood pressure is running low somewhat this evening and we will hold his BP meds this evening and follow up with Dr. Sneed regarding this. Currently 94/55. MEDICATIONS: ASA 81 mg p.o. daily, Miacalcin nasal spray one spray each nostril daily, apply to affected area daily, Protonix 40 mg p.o. daily, vitamin D3 5000 units p.o. daily, Sinemet 50/200 one tablet p.o. b.i.d., Depakote 250 mg p.o. b.i.d., simvastatin 40 mg p.o. each day at bedtime, Zoloft 25 mg p.o. each day at bedtime, Tylenol 1000 mg p.o. q.6 hours p.r.n. mild pain or fever. Blood pressure medications currently on hold. PHYSICAL EXAMINATION: GENERAL: Significant for a pleasant male appearing stated age, lying in bed, in no acute distress. Complaining of low back pain. VITAL SIGNS: He is afebrile. Pulse is 81, respirations 16, blood pressure 94/55, O2 sat 92% on room air. HEENT: Vision, speech, hearing is grossly intact. He has a somewhat flat affect going along with his history of Parkinson's and depression. No oral lesion is noted. NECK: Supple without mass. HEART: Regular rhythm. CHEST: Clear.Ell healed surgical scar from pacemaker placement. ABDOMEN: Soft, nontender, bowel sounds present. EXTREMITIES: No lower leg edema, no calf tenderness. BACK: He has tenderness over the sacral region to touch. MUSCULOSKELETAL: He has functional passive range of motion in all 4 extremities. NEUROLOGIC: He has a mild left-sided neglect. He has a left hemiparesis. Sensation is diminished in both feet to touch. He is reported to be continent of bowel and bladder. He has a Parkinson's gait. He wears glasses. He has fair plus strength in right upper limb and fair left upper limb. Strength right knee flexion and extension 3+/5, hip flexion not tested due to pain. Dorsiflexion 3/5, left knee flexion, extension 3-/5, hip flexion not tested due to pain, dorsiflexion 3-/5. IMPRESSION: 1. Fall with resulting sacral ala fracture with resulting decline in functional independence. 2. Parkinson's disease, on meds. 3. 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 4. Hypertension, currently somewhat hypotensive with meds on hold. 5. Chronic constipation. 6. Depression, on medication. 7. Status post atrial clip and cardiac pacemaker at [facility] in the past. 8. Benign prostatic hypertrophy. 9. Osteoarthritis. 10. Hyperlipidemia. 11. History of tobaccoism. 12. Coronary artery disease. PLAN: The patient is admitted for a comprehensive program of inpatient rehabilitation with goal of maximizing level of functional independence prior to discharge home with a son with home health care. The patient will have PT, OT 90 minutes per day each discipline, 5 days a week for 14 days with the above goals in mind. Please see post-admission physician evaluation, which is a separate document for her details of plan of care. Speech therapy to do cognitive assessment and treat as indicated. Rehabilitation nursing to assist with bowel, bladder, skin care, medication administration, pain management, social work therapist, discharge planning, community reentry. Follow up with Dr. Sneed as per schedule. Follow up urine culture for abnormal UA. Hold on blood pressure meds for now. Follow up with Dr. Sneed regarding this in the a.m. ESTIMATED LENGTH OF STAY: 14 days. PROGNOSIS: Rehab prognosis appears good for goal of restoring to prior level of function, which was standby assist for transfers, bed mobility and wheelchair mobility with standby assist for much of remainder of ADLs with his son to assist as needed. DIET: Regular. Job ID: [id number] DocumentID: [id number] Dictated Date: 03/03/2018 18:54:57 Social Professionals Date: 03/03/2018 19:59:18 Dictated By: STEPHANIA DORSEY MD [facility]
[2018-03-03] MEDS ORDERED: SINEMET 25/100 (CARBIDOPA/LEVODOPA) TAB ONE (20:29)
[2018-03-03] MEDS: DIVALPROEX 250 MG DELAYED RELEASE (DEPAKOTE) TAB PO SCH (20:47)
[2018-03-03] MEDS: SERTRALINE 50 MG (ZOLOFT) TABLET PO SCH (20:47)
[2018-03-03] MEDS: SIMvastatin 40 MG (ZOCOR) TAB PO SCH (20:47)
[2018-03-03] MEDS: SINEMET CR 50/200 (CARBIDOPA/LEVODOPA SA) TAB PO SCH (20:48)
[2018-03-04 05:17] VITALS: BP 96/59
[2018-03-04] MEDS: PANTOPRAZOLE 40 MG (PROTONIX) TAB PO SCH (06:00)
[2018-03-04] MEDS: VITAMIN D3 5,000 UNITS (CHOLECALCIFEROL ) CAPSULE PO SCH (06:00)
[2018-03-04] MEDS: DIVALPROEX 250 MG DELAYED RELEASE (DEPAKOTE) TAB PO SCH ×2 (07:54→20:07)
[2018-03-04] MEDS: ASPIRIN E.C. 81 MG (ECOTRIN) TAB PO SCH (07:54)
[2018-03-04] MEDS: CALCITONIN NASAL 200 INTLU/AC (FORTICAL) 3.7 ML BTL NS SCH (07:55)
[2018-03-04] MEDS: SILVER SULFADIAZINE 50 GM CREAM TOP SCH (07:56)
--- NOTE | 2018-03-04 08:03 | PM&R Post Admission Assessment ---
Post Admission Physician Asses Date seen by provider: Mar 04, 2018 Time seen by provider: 07:30 The preadmission screen agrees with the post admission assessment that the patient is a good candidate for inpatient rehabilitation. The patient will have a comprehensive program of inpatient rehabilitation with a goal of maximizing level of functional independence prior to discharge home with son and HHC. The patient will have PT/OT ninety minutes per day, each discipline, five days a week for14 days for gait, strengthening, conditioning, balance, ADLs, any patient/family/caregiver training as necessary. Speech therapy to do cognitive assessment and treat as indicated. Rehabilitation nursing to assist with bowel, bladder, skin, wound care, medication administration, pain management. Cyber Security Analyst to assist with discharge planning, community reentry. SCD's for DVT prophylaxis. He appears to be well motivated to participate in three hours of therapy a day. He should be able to tolerate three hours of therapy a day from a medical standpoint. He should benefit from the three hours of therapy a day. He has a reasonable discharge plan, reasonable discharge rehabilitation goals and a supportive family. He has various comorbidities that need to be closely monitored with medications and treatments adjusted on a daily basis as needed. These include: Cassidy Smyth Old rt CVA with residual left HP Chronic constipation HTN with hypotension at this time Depression CAD s/p atrila clip and pacemaker [facility] code 08.9 Etiologic DX Nondisplaced fracture of the left sacral ala Barriers to discharge for this patient who had been independent prior to this are for him to be modified independent to supervision for ADLs and mobility skills prior to discharge home with son and HHC, so as to lessen the burden of the caregivers. Risks for this patient include: 1. Fall 2. Fracture 3. DVT 4. Pulmonary embolism 5. Wound infection 6. Skin breakdown 7. Contractures 8. Poorly controlled pain 9. Urinary retention 10. UTI 11. Respiratory infection 12. Aspiration 13.orthostatic hypotension 14. recurrent stroke 15. Worsening [place] D Estimated Length of Stay: 14 days Prognosis: Rehab prognosis appears good for goal of discharge home with son and HHC at [facility] for transfers and w/c mobility and much of adls with assistance from son as needed. General: Alert, Oriented X3, Cooperative, No Acute Distress HEENT: Atraumatic, PERRLA, EOMI, Mucous Memb Moist/[place] Neck: Supple, No JVD Lungs: Clear to Auscultation Heart: Regular Rate, Other (well healed pacemaker incision site) Abdomen: Normal Bowel Sounds, Soft, No Tenderness Extremities: No Edema Neuro: Other (Left HP parkinsons gait) STEPHANIA DORSEY MD Mar 04, 2018 08:03
--- NOTE | 2018-03-04 08:04 | ST Cognitive Linguistic Eval ---
Speech Evaluation-General Medical Diagnosis coccyx fracture with left sided pain Onset Date: Feb 20, 2018 Therapy Diagnosis Therapy Diagnosis: Cognition Precautions Precautions/Isolations: Fall Prevention, Standard Precautions Referral Referring Physician: Dr. Reyna Medical History Pertinent Medical History: Atrial Fib, Arthritis, CAD, CVA, GERD, HTN, OA, Parkinson's, Smoking CVA in 2007 Current History Pt admitted to Rehab Unit due to a fractured coccyx. Reviewed History: Yes Social History Current Living Status: Other Family Speech PLF-Current Status Subjective Pt pleasant and cooperative. Daughter observed session. Pain Location: Posterior Language Eval: Auditory Comprehends Simple Yes/No Ques: Functional Follows 1-Step Commands: Functional Follows Complex Directions: Functional Follows General Conversations: Functional Language Eval: Verbal Language Completes Spontaneous Greeting: Functional Word Finding: Functional Requests Basic Needs: Functional States Basic Personal Info: Functional Expresses Complex Ideas: Functional Pt's speech is mildly dysarthric due to a prior stroke. Pt is also edentulous. Language Evaluation: Reading NA Objective Cognitive Domain Attention: WNL Memory: WNL Problem Solving: Functional Objective Formal/Standardized Tests The [facility] was administered to assess cognitive-linguistic functioning. The pt received the following scores: MEMORY - 3 word memory immediate 3/3; delayed 3/3; and remote delayed 3/3. PROBLEM SOLVING - Simple 4/4; Abstract/complex 2/2. Comparisons 3/4. Results Results indicate cognitive-linguistic functioning WFL. Impression Functional cognitive-linguistic skills. Communication/Social Cognition Comprehension: 7 Expression: 6 Social Interaction: 7 Problem Solvin Memory: 6 Speech Patient Assess Expression of Ideas/Wants: Expression (4) Understanding Verbal Content: Understands (4) Brief Interview-Mental Status: Yes Temporal Orientation: Year: Correct (3) Temporal Orientation: Month: Missed by 6 days-1 month (1) Temporal Orientation: Day: Correct (1) Recall : Wear to say "Sock": Yes, no cue required (2) Recall : Color: Yes, no cue required (2) Recall : Bed: Yes, no cue required (2) Speech Short Term Goals Short Term Goals Short Term Goals Does not apply as pt will not be seen by skilled ST. Speech Group Home Goals Group Home Goals Does not apply as pt will not be receiving skilled ST services. Speech-Plan Patient/Family Goals Patient/Family Goals: to return home. Treatment Plan Speech Therapy Treatment Plan: Discontinue ST Pt does not require skilled speech tx services. Frequency: Modified Program (IRF) (X not indicated) Estimated Hrs Per Day: Other (skilled ST not indicated) Rehab Potential: Fair Safety Risks/Education Teaching Recipient: Patient Teaching Methods: Discussion Response to Teaching: Verbalize Understanding Time Speech Therapy Time In: 15:25 Speech Therapy Time Out: 15:40 Total Billed Time: 15 Billed Treatment Time 1, SPSNDCOMP Yes Speech GCodes Functional Limitation-Current Current: MEMCUR Modifier: CI Functional Limitation-Goal Goal: MEMGOAL Modifier: CI Functional Limitation-D/C Discharge: MEMDC Modifier: CI CARLYN SR Mar 04, 2018 08:04
--- NOTE | 2018-03-04 08:09 | PM & R (SOAP) Progress Note ---
Subjective This was a face to face visit with the patient. Date Seen by Provider: Mar 04, 2018 Time Seen by Provider: 07:45 Subjective/Events-last exam Patient was seen in his room this AM Adjusting well to unit discussed case with RN Patient had small BM HTN meds held last evening due to hypotension DR Sneed to see.Patient min assist for transfers Review of Systems Musculoskeletal: back pain Neurological: Weakness Objective Physician Exam Last Set of Vital Signs Vital Signs Date Time Temp Pulse Resp B/P (MAP) Pulse Ox O2 Delivery O2 Flow Rate FiO2 03/04/18 05:17 98.5 74 18 96/59 (71) 95 Room Air Capillary Refill : Less Than 3 Seconds I&O Intake and Output 03/04/18 00:00 Intake Total 310 ml Output Total 150 ml Balance 160 ml Intake Oral 310 ml Output Urine Total 150 ml Daily Weight Change Unsure General: Alert, Oriented X3, Cooperative, No Acute Distress HEENT: Atraumatic, PERRLA, EOMI, Mucous Memb Moist/[place] Neck: Supple, No JVD Lungs: Clear to Auscultation Heart: Regular Rate, Other (well healed pacemaker incision site) Abdomen: Normal Bowel Sounds, Soft, No Tenderness Extremities: No Edema Neuro: Other (Left HP parkinsons gait) Results Lab Data Laboratory Tests 03/03/18 15:05: Urine Color AMBERH, Urine Clarity CLEAR, Urine pH 5, Urine Specific [place] 1.015L, Urine Protein NEGATIVE, Urine Glucose (UA) NEGATIVE, Urine Ketones NEGATIVE, Urine Nitrite NEGATIVE, Urine Bilirubin NEGATIVE, Urine Urobilinogen NORMAL, Urine Leukocyte Esterase 1+H, Urine RBC (Auto) 4+H, Urine RBC 5-10H, Urine WBC 5-10H, Urine Squamous Epithelial Cells 0-2, Urine Crystals NONE, Urine Bacteria NEGATIVE, Urine Casts NONE, Urine Mucus NEGATIVE, Urine Culture Indicated YES Microbiology 03/03/18 Urine Culture - Preliminary, Resulted Sent To [facility] Assessment/Plan Assessment and Plan Left sacral ala fracture due to fall Park D Old RT cva with Left HP Chronic constipation HTN currently somewaht hypotensive Depression on med BPH OA HLP Hx of tobaccoism CAD s/p Pacemaker and atrial clip [facility] Plan Continue PT/OT Team Conference tomorrow F/U with DR Sneed PCP re Blood Pressure meds Co-Morbidities that are continuing to impact the rehab process: (include details ) STEPHANIA DORSEY MD Mar 04, 2018 08:09
[2018-03-04] MEDS: ACETAMINOPHEN 500 MG TAB (TYLENOL) PO PRN ×2 (09:30→17:53)
[2018-03-04] MEDS: SINEMET CR 50/200 (CARBIDOPA/LEVODOPA SA) TAB PO SCH ×2 (09:30→20:06)
--- NOTE | 2018-03-04 10:06 | Occupational Therapy Eval ---
OT Evaluation-General/PLF Medical Diagnosis Admission Date Mar 03, 2018 at 14:39 Medical Diagnosis: coccyx fracture with left sided pain Onset Date: Feb 20, 2018 Therapy Diagnosis Therapy Diagnosis: Weakness Height/Weight Height (Feet): 5 Height (Inches): 4.00 Weight (Pounds): 159 Weight (Ounces): 7.0 Precautions Precautions/Isolations: Fall Prevention, Standard Precautions Safety Interventions: Bed Exit Alarm Weight Bear Status Weight Bearing Restriction: Weight Bearing/Tolerated Referral Physician: Axel Referral Reason: Activity Tolerance, Self Care, Evaluation/Treatment, Strengthening/ROM Medical History Pertinent Medical History: Atrial Fib, Arthritis, CAD, CVA, GERD, HTN, OA, Parkinson's, Smoking Current History Pt. fell at home. Brought to ER by family. Reviewed History: Yes Social History Home: Single Level Current Living Status: Other Family Entry Into Home: Ramp, Stairs With Railing Steps Into Home: 5 ADL-Prior Level of Function ADL PLOF Comments Pt states that his son lives with him, and assists him with all ADLs, including toileting and showering. pt. has 4-5 steps to get into door, but uses the rail and states, "I have figured it out." Otherwise, pt. is usually at wheelchair level within the home. DME/Equipment: Bath Chair, Tub/Shower DME/Equipment Comments Pt uses wheelchair. Drive Self: No OT Current Status Subjective Pt. reports 4/10 pain in left hip with movement. Nursing is asked if pt. can have a pain pill. Appearance Pt. is in bed. Demonstrates flat affect but does agree to work with OT. Mental Status/Objective Patient Orientation: Person Current Glasses/Contacts: Yes Hand Dominance: Right Upper Extremity ROM Pt. demonstrates somewhat slow movements in shoulder flexion and is able to flex bilaterally to approximately 90 degrees. Upper Extremity Coordination Limited coordination in left hand from previous CVA. Right UE- WFL ADL-Treatment Functional Crystal Measure 0=Not Assessed/NA 4=Minimal Assistance 1=Total Assistance 5=Supervision or Setup 2=Maximal Assistance 6=Modified Crystal 3=Moderate Assistance 7=Complete IndependenceIRFPAI Quality Coding Scale 6 Independent with activity with or without an assistive device 5 Patient requires set up or clean up by helper. Patient completes activity by themselves 4 Supervision or touching assist (CGA). [place] provide cues , steadying assist 3 The helper provides less than half the effort to complete the activity 2 The helper provides more than half the effort to complete the activity 1 Dependent. The helper does all the effort to complete an activity 7 Patient refused to complete or attempt activity 9 The patient did not perform the activity before the current illness or injury 88 Not attempted due to Medical conditions or safety concerns Grooming (FIM): 3 (Pt. requires encouragement to do for self, as he states that his son does these things for him. Pt. is able to comb hair with increased time and does attempt to shave, but overall requires max assist for this.) Bathing (FIM): 3 (Pt. requires encouragement to do for self. Pt. does require assist to wash rear bill area and bilateral feet.) Shower/Bathe Self (QC): 3 Upper Body Dressing (FIM): 3 (Pt. has great difficulty manuevering shirt over head and getting hands into it.) Upper Body Dressing (QC): 3 Lower Body Dressing (FIM): 2 Lower Body Dressing (QC): 3 On/Off Footwear (QC): 3 (Pt. states that he can't reach his feet. However, was able to doff socks.) Toileting (FIM): 2 (Pt. requires assist to pull down and up pants and underwear , as well as cleanse bill area.) Toileting Hygiene (QC): 2 Transfers (B, C, W/C) (FIM): 4 Toilet/Commode Transfer (FIM): 4 Toilet Transfer (QC): 4 Shower Transfer (FIM): 4 Other Treatments After ADL session, pt. requests to lay back in bed. Transferred back to bed with min assist, and all needs required. Education OT Patient Education: Correct positioning, Modified ADL techniques, Progress toward Goal/Update tx plan, Purpose of tx/functional activities, Reviewed precautions, Rehab process, Transfer techniques Teaching Recipient: Patient Teaching Methods: Demonstration, Discussion Response to Teaching: Verbalize Understanding, Return Demonstration OT Short Term Goals Short Term Goals Time Frame: Mar 11, 2018 Eating(FIM): 5 Grooming(FIM): 4 Bathing(FIM): 4 Upper Body Dressing(FIM): 4 Lower Body Dressing(FIM): 3 Toileting(FIM): 4 Transfers (B,C,W/C) (FIM): 5 Toilet/Commode Transfer(FIM): 5 Shower Transfer(FIM): 4 Additional Short Term Goals: 1-Demonstrate ADL Tasks, 2-Verbalize Understanding , 3-ImproveStrength/Vandana 1=Demonstrate adherence to instructed precautions during ADL tasks. 2=Patient will verbalize/demonstrate understanding of assistive devices/ modifications for ADL. 3=Patient will improve strength/tolerance for activity to enable patient to perform ADL's. OT Snf Goals Snf Goals Time Frame: Mar 18, 2018 Eating (FIM): 6 Eating (QC): 6 Groomin Oral Hygiene (QC): 5 Bathing(FIM): 4 Shower/Bathe Self (QC): 4 Upper Body Dressing(FIM): 5 Upper Body Dressing (QC): 4 Lower Body Dressing(FIM): 4 Lower Body Dressing (QC): 4 On/Off Footwear (QC): 4 Toileting(FIM): 6 Toileting Hygiene (QC): 5 Transfers (B,C,W/C) (FIM): 5 Toilet/Commode Transfer(FIM): 5 Toilet/Commode Transfer (QC): 5 Shower Transfer(FIM): 5 Additional Goals: 1-Demonstrate ADL Tasks, 2-Verbalize Understanding, 3- ImproveStrength/Vandana 1=Demonstrate adherence to instructed precautions during ADL tasks. 2=Patient will verbalize/demonstrate understanding of assistive devices/ modifications for ADL. 3=Patient will improve strength/tolerance for activity to enable patient to perform ADL's. OT Education/Plan Problem List/Assessment Assessment: Decreased Activ Tolerance, Decreased UE Strength, Dependent Transfers, Impaired Bed Mobility, Impaired Cognition, Impaired Coordination, Impaired Funct Balance, Impaired I ADL's, Impaired Self-Care Skills, Restricted Funct UE ROM Discharge Recommendations Plan/Recommendations: Continue POC Therapy D/C Recommendations: Home w/ Family Support, Scheduled Assistance Equpiment Recommendations-D/C: Hip Kit Treatment Plan/Plan of Care Treatment,Training & Education: Yes Patient would benefit from OT for education, treatment and training to promote independence in ADL's, mobility, safety and/or upper extremity function for ADL' s. Plan of Care: ADL Retraining, Functional Mobility, Group Exercise/Act as Ind, UE Funct Exercise/Act Treatment Duration: Mar 18, 2018 Frequency: At least 5 of 7 days/Wk (IRF) Estimated Hrs Per Day: 1.5 hours per day Agreement: Yes Rehab Potential: Fair Time/GCodes Start Time: 08:30 Stop Time: 09:30 Total Time Billed (hr/min): 60 Billed Treatment Time 1, EVH x 15minutes, ADL x 45minutes PT/OT Therapy GCodes Functional Limitation-Current Modifier: CI Functional Limitation-Goal Modifier: CI CELI HAWK OT Mar 04, 2018 10:06
--- NOTE | 2018-03-04 11:01 | Physical Therapy Daily Note ---
PT Daily Note-Current Subjective Pt. states he is fearful of pain in his right hip and tail bone as he begins to move around but agrees to Rx. Pain Numeric Pain Scale: 4 Location: Right Location Body Site: Hip Pain Description: Ache Mental Status Patient Orientation: Person, Place, Time, Situation Transfers Functional [place] Measure 0=Not Assessed/NA 4=Minimal Assistance 1=Total Assistance 5=Supervision or Setup 2=Maximal Assistance 6=Modified [place] 3=Moderate Assistance 7=Complete IndependenceIRFPAI Quality Coding Scale 6 Independent with activity with or without an assistive device 5 Patient requires set up or clean up by helper. Patient completes activity by themselves 4 Supervision or touching assist (CGA). [place] provide cues , steadying assist 3 The helper provides less than half the effort to complete the activity 2 The helper provides more than half the effort to complete the activity 1 Dependent. The helper does all the effort to complete an activity 7 Patient refused to complete or attempt activity 9 The patient did not perform the activity before the current illness or injury 88 Not attempted due to Medical conditions or safety concerns Transfers (B, C, W/C) (FIM): 4 Scootin Rollin Supine to/from Sit: 4 Sit to/from Stand: 5 Weight Bearing Right Lower Extremity: Right Full Weight Bearing Left Lower Extremity: Left Full Weight Bearing Gait Training Does the Patient Walk?: Yes Gait (FIM): 2 Distance (FIM): 7=320-29 ft (50ft, 30ft x 3) Gait Level of Assist: 4 Gait Persons Needed: 1 Gait Assistive Device: FWW small shuffled steps Wheelchair Training Does the Pt Use a Wheelchair?: Yes Wheelchair (FIM): 4 Wheelchair Distance: 3=150 ft (150, 50x2) Wheelchair Level of Assist: 5 (verbal instruction) Type of Wheelchair: Manual Exercises Supine Ex: Bridging, Ankle pumps, Quad Set, Rolling, Glut sets, Heel Slides, Short Arc Quads, Scooting, Straight leg raise, Hip abd/add Supine Reps: 12 Seated Therapy Exercises: Ankle pumps, Sit to stand, Long arc quads, Hip flexion Seated Reps: 10 Assessment Current Status: Good Progress pain limits function but improving PT Short Term Goals Short Term Goals Transfers (B,C,W/C) (FIM): 5 PT Vehicle Operator Goals Fpc Goals PT Fpc Goals Time Frame: Mar 21, 2018 Transfers (B,C,W/C) (FIM): 6 Sit to Lying (QC): 6 Lying-Sitting on Side/Bed(QC): 6 Sit to Stand (QC): 6 Rollin Roll Left to Right (QC): 6 Chair/Eku-pe-Zxhrm Xfer(QC): 6 Car Transfer (QC): 6 Does the Patient Walk: Yes Gait (FIM): 2 Gait distance (FIM): 6=484-55 ft Distance: 125' Walk 10 feet (QC): 5 Walk 10ft-Uneven Surface(QC): 5 Walk 50ft with 2 Turns (QC): 5 Walk 150 ft (QC): 9 Gait Level of Assist: 5 Gait Assistive Device: FWW Does the Pt use WC or Scooter?: Yes Wheelchair (FIM): 5 Wheelchair distance (FIM): 3=150 ft Distance: 150' Wheelchair Level of Assist: 5 Wheel 50 feet with 2 turns (QC: 5 Stairs (FIM): 2 # of Steps: 4 1 Step (curb) (QC): 5 4 Steps (QC): 5 12 Steps (QC): 9 Stairs Level Of Assist: 5 Picking up an Object (QC): 5 PT Plan Treatment/Plan Treatment Plan: Continue Plan of Care Treatment Plan: Bed Mobility, Concurrent Therapy, Education, Functional Activity Vandana, Functional Strength, Group Therapy, Gait, Safety, Therapeutic Exercise, Transfers Treatment Duration: Mar 21, 2018 Frequency: At least 5 of 7 days/Wk (IRF) Estimated Hrs Per Day: 1.5 hours per day Patient and/or Family Agrees t: Yes Safety Risks/Education Patient Education: Gait Training, Transfer Techniques, Correct Positioning, W/ C Management, Disease Process, Safety Issues Teaching Recipient: Patient Teaching Methods: Demonstration, Discussion Response to Teaching: Verbalize Understanding, Return Demonstration, Reinforcement Needed Time/GCodes Time In: 1000 Time Out: 1100 Total Billed Treatment Time: 60 Total Billed Treatment 1, w/c15, GT15m,EX15m,FA15m G Codes Necessary: Yes PT/OT Therapy GCodes Functional Limitation-Current Modifier: CI Functional Limitation-Goal Modifier: ISABELLA TEIXEIRA [employer] CONSULTANT Mar 04, 2018 11:01
[2018-03-04] MEDS ORDERED: TRIM/SULFAMETH 160/800 (SEPTRA DS) TAB PO NR (12:30)
--- NOTE | 2018-03-04 14:58 | Physical Therapy Daily Note ---
PT Daily Note-Current Subjective Pt. agrees to Rx. States he has pain in left hip at 7/10 at end of Rx. Requests pain meds. Pain Numeric Pain Scale: 7 Location: Left Location Body Site: Hip Pain Description: Ache Mental Status Patient Orientation: Person, Place, Time, Situation Transfers Functional [place] Measure 0=Not Assessed/NA 4=Minimal Assistance 1=Total Assistance 5=Supervision or Setup 2=Maximal Assistance 6=Modified [place] 3=Moderate Assistance 7=Complete IndependenceIRFPAI Quality Coding Scale 6 Independent with activity with or without an assistive device 5 Patient requires set up or clean up by helper. Patient completes activity by themselves 4 Supervision or touching assist (CGA). [place] provide cues , steadying assist 3 The helper provides less than half the effort to complete the activity 2 The helper provides more than half the effort to complete the activity 1 Dependent. The helper does all the effort to complete an activity 7 Patient refused to complete or attempt activity 9 The patient did not perform the activity before the current illness or injury 88 Not attempted due to Medical conditions or safety concerns all TRFs SBA Weight Bearing Right Lower Extremity: Right Full Weight Bearing Left Lower Extremity: Left Full Weight Bearing Gait Training Gait Assistive Device: FWW 60ft,10ft FWW slow, antalgic, with c/o pain each step on left. Exercises Supine Ex: Bridging, Ankle pumps, Quad Set, Glut sets, Heel Slides, Hip abd/add Supine Reps: 15 Seated Therapy Exercises: Ankle pumps, Sit to stand, Long arc quads, Hip abd/ add Seated Reps: 15 Assessment Current Status: Good Progress PT Short Term Goals Short Term Goals Transfers (B,C,W/C) (FIM): 5 PT Finisher Screwdown Goals Detention Goals PT Finisher [place]wdown Goals Time Frame: Mar 21, 2018 Transfers (B,C,W/C) (FIM): 6 Sit to Lying (QC): 6 Lying-Sitting on Side/Bed(QC): 6 Sit to Stand (QC): 6 Rollin Roll Left to Right (QC): 6 Chair/Ycy-qz-Wexzj Xfer(QC): 6 Car Transfer (QC): 6 Does the Patient Walk: Yes Gait (FIM): 2 Gait distance (FIM): 1=063-49 ft Distance: 125' Walk 10 feet (QC): 5 Walk 10ft-Uneven Surface(QC): 5 Walk 50ft with 2 Turns (QC): 5 Walk 150 ft (QC): 9 Gait Level of Assist: 5 Gait Assistive Device: FWW Does the Pt use WC or Scooter?: Yes Wheelchair (FIM): 5 Wheelchair distance (FIM): 3=150 ft Distance: 150' Wheelchair Level of Assist: 5 Wheel 50 feet with 2 turns (QC: 5 Stairs (FIM): 2 # of Steps: 4 1 Step (curb) (QC): 5 4 Steps (QC): 5 12 Steps (QC): 9 Stairs Level Of Assist: 5 Picking up an Object (QC): 5 PT Plan Treatment/Plan Treatment Plan: Continue Plan of Care Treatment Plan: Bed Mobility, Concurrent Therapy, Education, Functional Activity Vandana, Functional Strength, Group Therapy, Gait, Safety, Therapeutic Exercise, Transfers Treatment Duration: Mar 21, 2018 Frequency: At least 5 of 7 days/Wk (IRF) Estimated Hrs Per Day: 1.5 hours per day Patient and/or Family Agrees t: Yes Safety Risks/Education Patient Education: Gait Training, Transfer Techniques Teaching Recipient: Patient Teaching Methods: Demonstration, Discussion Response to Teaching: Unable to Return Demonstration, Return Demonstration, Reinforcement Needed Time/GCodes Time In: 1430 Time Out: 1500 Total Billed Treatment Time: 30 Total Billed Treatment 1,GT20,EX10 G Codes Necessary: No PT/OT Therapy GCodes Functional Limitation-Current Modifier: CI Functional Limitation-Goal Modifier: CI ISABELLA MEEKS YARN WEIGHER Mar 04, 2018 14:57
--- NOTE | 2018-03-04 15:52 | Occupational Ther Daily Note ---
OT Current Status-Daily Note Subjective No pain reported. Pt. does state that he is tired. Appearance Pt. is in bed. Agrees to work with OT. Mental Status/Objective Patient Orientation: Person, Place, Time, Situation Functional [place] Measure 0=Not Assessed/NA 4=Minimal Assistance 1=Total Assistance 5=Supervision or Setup 2=Maximal Assistance 6=Modified [place] 3=Moderate Assistance 7=Complete [place] ADL-Treatment Functional [place] Measure 0=Not Assessed/NA 4=Minimal Assistance 1=Total Assistance 5=Supervision or Setup 2=Maximal Assistance 6=Modified [place] 3=Moderate Assistance 7=Complete IndependenceIRFPAI Quality Coding Scale 6 Independent with activity with or without an assistive device 5 Patient requires set up or clean up by helper. Patient completes activity by themselves 4 Supervision or touching assist (CGA). [place] provide cues , steadying assist 3 The helper provides less than half the effort to complete the activity 2 The helper provides more than half the effort to complete the activity 1 Dependent. The helper does all the effort to complete an activity 7 Patient refused to complete or attempt activity 9 The patient did not perform the activity before the current illness or injury 88 Not attempted due to Medical conditions or safety concerns Transfers (B, C, W/C) (FIM): 4 (Min assist supine-sit. Min assist transfer to wheelchair.) Other Treatment Once pt. was up in chair, pt. was encouraged to self propel in wheelchair. Pt. would self propel in wheelchair several steps, but then would stop. Required encouragement to continue in wheelchair. Pt. was then given large ball and worked with bilateral hand raises overhead to stretch shoulders. Pt. also worked on tossing ball back and forth with therapist. Pt. demonstrates slow movements and difficulty with stretching shoulders. Pt. also requires cues to stay on task at times. All needs met back in room. Pt. in wheelchair with call light in place. Education OT Patient Education: Correct positioning, Exercise program, Progress toward Goal/Update tx plan, Purpose of tx/functional activities, Reviewed precautions, Rehab process, Transfer techniques Teaching Recipient: Patient Teaching Methods: Demonstration, Discussion Response to Teaching: Verbalize Understanding, Return Demonstration OT Short Term Goals Short Term Goals Time Frame: Mar 11, 2018 Eating(FIM): 5 Grooming(FIM): 4 Bathing(FIM): 4 Upper Body Dressing(FIM): 4 Lower Body Dressing(FIM): 3 Toileting(FIM): 4 Transfers (B,C,W/C) (FIM): 5 Toilet/Commode Transfer(FIM): 5 Shower Transfer(FIM): 4 Additional Short Term Goals: 1-Demonstrate ADL Tasks, 2-Verbalize Understanding , 3-ImproveStrength/Vandana 1=Demonstrate adherence to instructed precautions during ADL tasks. 2=Patient will verbalize/demonstrate understanding of assistive devices/ modifications for ADL. 3=Patient will improve strength/tolerance for activity to enable patient to perform ADL's. OT Prison Goals Hydrologist Goals Time Frame: Mar 18, 2018 Eating (FIM): 6 Eating (QC): 6 Groomin Oral Hygiene (QC): 5 Bathing(FIM): 4 Shower/Bathe Self (QC): 4 Upper Body Dressing(FIM): 5 Upper Body Dressing (QC): 4 Lower Body Dressing(FIM): 4 Lower Body Dressing (QC): 4 On/Off Footwear (QC): 4 Toileting(FIM): 6 Toileting Hygiene (QC): 5 Transfers (B,C,W/C) (FIM): 5 Toilet/Commode Transfer(FIM): 5 Toilet/Commode Transfer (QC): 5 Shower Transfer(FIM): 5 Additional Goals: 1-Demonstrate ADL Tasks, 2-Verbalize Understanding, 3- ImproveStrength/Vandana 1=Demonstrate adherence to instructed precautions during ADL tasks. 2=Patient will verbalize/demonstrate understanding of assistive devices/ modifications for ADL. 3=Patient will improve strength/tolerance for activity to enable patient to perform ADL's. OT Education/Plan Problem List/Assessment Assessment: Decreased Activ Tolerance, Decreased UE Strength, Dependent Transfers, Impaired Bed Mobility, Impaired Cognition, Impaired Coordination, Impaired Funct Balance, Impaired I ADL's, Impaired Self-Care Skills, Restricted Funct UE ROM Discharge Recommendations Plan/Recommendations: Continue POC Therapy D/C Recommendations: Home w/ Family Support, Scheduled Assistance Treatment Plan/Plan of Care Treatment,Training & Education: Yes Patient would benefit from OT for education, treatment and training to promote independence in ADL's, mobility, safety and/or upper extremity function for ADL' s. Plan of Care: ADL Retraining, Functional Mobility, Group Exercise/Act as Ind, UE Funct Exercise/Act Treatment Duration: Mar 18, 2018 Frequency: At least 5 of 7 days/Wk (IRF) Estimated Hrs Per Day: 1.5 hours per day Agreement: Yes Rehab Potential: Fair Time/GCodes Start Time: 14:00 Stop Time: 14:30 Total Time Billed (hr/min): 30 Billed Treatment Time 1, FA x 2 PT/OT Therapy GCodes Functional Limitation-Current Modifier: CI Functional Limitation-Goal Modifier: CI CELI HAWK OT Mar 04, 2018 15:52
[2018-03-04] MEDS ORDERED: TRIM/SULFAMETH 160/800 (SEPTRA DS) TAB PO SCH (17:00)
[2018-03-04 17:15] VITALS: BP 93/59
[2018-03-04] MEDS: SIMvastatin 40 MG (ZOCOR) TAB PO SCH (20:06)
[2018-03-04] MEDS: SERTRALINE 50 MG (ZOLOFT) TABLET PO SCH (20:07)
--- NOTE | 2018-03-04 20:09 | Consultation ---
History of Present Illness History of Present Illness Patient Consulted On(brayden/time) 03/04/18 20:03 Date Seen by Provider: Mar 04, 2018 Time Seen by Provider: 12:30 History of Present Illness This is an 82 year old male who sustained a fall approximately one week ago and fell on his tailbone. He was found to have a left sacral ala fracture and was sent home with pain control and plans for home health. However, the patient's function declined at home due to pain and weakness. It was decided he would need rehab to increase his strength and mobility. I am asked to consult for medical management. Allergies and Home Medications Allergies Coded Allergies: Cobamamide (Unverified Allergy, Unknown, MEMORY LOSS, 01/18/14) cyanocobalamin (Unverified Allergy, Unknown, MEMORY LOSS, 01/18/14) fentanyl (Verified Allergy, Unknown, 12/08/15) lactose (Verified Allergy, Unknown, 03/03/18) morphine (Verified Allergy, Unknown, 12/08/15) codeine (Unverified Adverse Reaction, Mild, SICK, 08/23/15) promethazine HCl (Unverified Adverse Reaction, Mild, LOSS OF MEMORY, ) hydrocodone (Verified Adverse Reaction, Unknown, 12/08/15) low blood pressure Uncoded Allergies: narcotics (Adverse Reaction, Unknown, 12/08/15) Home Medications Acetaminophen 500 Mg Tablet, 1,000 MG PO Q6H PRN for PAIN-MILD OR TEMPATURE, ( Reported) Aspirin 81 Mg Tablet.dr, 81 MG PO DAILY, (Reported) Calcitonin,[place],Synthetic 3.7 Ml [place].pump, 1 SPRAY NS DAILY, (Reported) Carbidopa/Levodopa 1 Each Tablet.er, 1 TAB PO BID, (Reported) Cholecalciferol (Vitamin D3) 5,000 Unit Capsule, 5,000 UNIT PO DAILY, (Reported) Divalproex Sodium 250 Mg Tablet.dr, 250 MG PO BID, (Reported) Enalapril Maleate 5 Mg Tablet, 5 MG PO BID, (Reported) Magnesium Hydroxide 400 Mg/5 Ml Oral.susp, 30 ML PO DAILY PRN for CONSTIPATION- 7TH LINE, (Reported) Pantoprazole Sodium 40 Mg Tablet.dr, 40 MG PO DAILY, (Reported) Propranolol HCl 20 Mg Tablet, 20 MG PO BID, (Reported) Sertraline HCl 25 Mg Tablet, 25 MG PO HS, (Reported) Silver Sulfadiazine 25 Gm Cream..g., TOP DAILY, (Reported) Simvastatin 40 Mg Tablet, 40 MG PO HS, (Reported) Patient Home Medication List Home Medication List Reviewed: Yes Past Drhcway-Oidbup-Nxabbj Hx Patient Social History Smoking Status: Former Smoker Former Smoker, Quit: December 10, 1986 Recent Foreign Travel: No Contact w/Someone Who Travel: No Recent Infectious Disease Expo: No Recent Hopitalizations: No Immunizations Up To Date Tetanus Booster (TDap): Unknown Date of Pneumonia Vaccine: May 17, 2012 Date of Influenza Vaccine: May 12, 2015 Seasonal Allergies Seasonal Allergies: No Past Medical History Surgeries: Yes Abdominal, Amputation, Eye Surgery, Joint Replacement, Orthopedic, Pacemaker Respiratory: Yes Asthma Cardiac: No (PACEMAKER; ATRIAL CLIP PROCEDURE) Hypertension Neurological: Yes (CVA WITH LEFT SIDE WEAKNESS, DYSPHAGIA, AND POOR COORDINATION) Parkinson's Disease, Stroke Reproductive Disorders: No Sexually Transmitted Disease: No HIV/AIDS: No Genitourinary: Yes Benign Prostatic Hyperpl, Prostate Problems, Kidney Stones Gastrointestinal: Yes (LACTOSE INTOLERANT; HIATAL AND UMBILICAL HERNIA REPAIRS) Abdominal Hernia, Chronic Constipation, Hiatal Hernia, Ulcer Musculoskeletal: Yes Degenerate Disk Disease, Arthritis, Chronic Back Pain, Fractures Endocrine: No HEENT: Yes (DYSPHAGIA FROM CVA; CATARACTS/LENS IMPLANTS) Cataract Hearing Impairment: Denies Cancer: No 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) Depression Integumentary: Yes (RASH IN SUMMER AT TIMES) Pruritis Blood Disorders: No Adverse Reaction/Blood Tranf: No Family Medical History Cancer G8 BROTHER G8 BROTHER G8 SISTER Cancer of colon G8 BROTHER Cataract 19 FATHER Congestive heart failure 19 FATHER Family history: Allergy DAUGHTER Family history: Alzheimer's disease 19 FATHER Family history: Breast disease G8 SISTER No Family History of: Abdominal aortic aneurysm Radford's disease Alcoholism Aphasia Chest pain Congenital heart disease Cystic fibrosis Dementia Dysphagia Family history: Arthritis Family history: Asthma Family history: Cardiovascular disease Family history: Coronary thrombosis Family history: Diabetes mellitus Family history: Gastrointestinal disease Family history: Glaucoma Family history: Hypertension Family history: Osteoporosis Family history: Thyroid disorder Headache Hearing loss Heart disease Hereditary disease History of - anemia History of - disorder History of - respiratory disease History of drug abuse Human immunodeficiency virus (HIV) seropositivity Hypercholesterolemia Infertile Kidney disease Malignant neoplasm of lung Myocardial infarction Parkinson's disease Prostate cancer Psychotic disorder Seizure disorder Stroke Tuberculosis Visual impairment Review of Systems-General Constitutional: weakness EENTM: No see HPI, No no symptoms reported, No ear discharge, No hearing loss, No ear pain, No blurred vision, No double vision, No eye pain, No tearing, No vision loss, No dental problems, No hoarseness, No mouth pain, No mouth swelling , No epistaxis, No nose congestion, No nose pain, No throat pain, No throat swelling, No other Respiratory: No no symptoms reported, No see HPI, No cough, No dyspnea on exertion, No hemoptysis, No orthopnea, No phlegm, No short of breath, No stridor , No wheezing, No other Cardiovascular: No no symptoms reported, No see HPI, No chest pain, No edema, No Hx of Intervention, No palpitations, No syncope, No vascular heart diseas, No other Gastrointestinal: No RUQ, No LUQ, No RLQ, No LLQ, No no symptoms reported, No see HPI, No abdominal pain, No constipation, No diarrhea, No dysphagia, No hematemesis, No heartburn, No jaundice, No loss of appetite, No melena, No nausea, No vomiting, No other Genitourinary: other (change in color) Musculoskeletal: back pain (tailbone) Skin: No no symptoms reported, No see HPI, No change in color, No change in hair/nails, No dryness, No hx of skin cancer, No lesions, No lumps, No pruritus , No rash, No other Psychiatric/Neurological: Pre-Existing Deficit (left side from previous stroke) , Tremors, Weakness Physical Exam-General Problems Physical Exam Vital Signs Vital Signs - First Documented 03/03/18 16:05 Temp 99.4 Pulse 65 Resp 20 B/P (MAP) 93/65 (74) Pulse Ox 94 O2 Delivery Room Air Capillary Refill : Less Than 3 Seconds General Appearance: no apparent distress HEENT: normal ENT inspection Neck: supple Respiratory: lungs clear Cardiovascular: regular rate, rhythm, gallop/S4 Gastrointestinal: normal bowel sounds, non tender, soft Back: no CVA tenderness, vertebral tenderness (left SI area) Extremities: non-tender, no pedal edema, no calf tenderness Neurologic/Psychiatric: alert, oriented x 3, abnormal gait, motor weakness, other (tremor) Skin: warm/dry Assessment/Plan Assessment/Plan Admission Diagnosis/Plan 1. Left Sacral Ala Fracture with worsening debility--admitted for PT/OT, started on miacalcin nasal spray to assist in fracture healing and pain 2. UTI--start Bactrim and culture urine 3. Hypertension with current hypotension--BP meds on hold and monitoring BP 4. Parkinson's--sinemet resumed 5. 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
[2018-03-05 06:00] VITALS: BP 113/68
[2018-03-05 06:00] LABS: BASOPHILS % (AUTO) 0 % (0-10); EOSINOPHILS # (AUTO) 0.1 10^3/uL (0.0-0.3); EOSINOPHILS % (AUTO) 1 % (0-10); HEMATOCRIT 33 % (40-54); HEMOGLOBIN 11.1 G/DL (13.3-17.7); LYMPHOCYTES # (AUTO) 1.6 X 10^3 (1.0-4.0); LYMPHOCYTES % (AUTO) 11 % (12-44); MEAN CORPUSCULAR HEMOGLOBIN 34 PG (25-34); MEAN CORPUSCULAR HGB CONC 34 G/DL (32-36); MEAN CORPUSCULAR VOLUME 101 FL (80-99); MEAN PLATELET VOLUME 10.1 FL (7.4-10.4); MONOCYTES % (AUTO) 14 % (0-12); NEUTROPHILS # (AUTO) 11.3 X 10^3 (1.8-7.8); NEUTROPHILS % (AUTO) 75 % (42-75); PLATELET COUNT 210 10^3/uL (130-400); RED BLOOD COUNT 3.27 10^6/uL (4.35-5.85); RED CELL DISTRIBUTION WIDTH 14.9 % (10.0-14.5)
[2018-03-05 06:21] LABS: CALCIUM 8.4 MG/DL (8.5-10.1); CREATININE SERUM 4.3 MG/DL (0.60-1.30); POTASSIUM 4.2 MMOL/L (3.6-5.0)
[2018-03-05] MEDS: VITAMIN D3 5,000 UNITS (CHOLECALCIFEROL ) CAPSULE PO SCH (07:00)
[2018-03-05] MEDS: PANTOPRAZOLE 40 MG (PROTONIX) TAB PO SCH (07:00)
[2018-03-05 07:39] LABS: EOSINOPHILS % (MANUAL) 2 %; LYMPHOCYTES % (MANUAL) 11 %; MONOCYTES % (MANUAL) 9 %; NEUTROPHILS % (MANUAL) 78 %; RBC MORPH NORMAL
[2018-03-05] MEDS ORDERED: NS IV 1000 ML 1,000 ML ONE ×2 (08:10→16:57)
--- NOTE | 2018-03-05 08:27 | PM & R (SOAP) Progress Note ---
Subjective This was a face to face visit with the patient. Date Seen by Provider: Mar 05, 2018 Time Seen by Provider: 07:45 Subjective/Events-last exam Patient was seen in her room this AM Patient nauseated since last night.Patinet BUN/CR elevated IVFS ordered.Bactrim dose adjusted for presumed UTI C&S equivocal.Patient SBA for transfers Objective Physician Exam Last Set of Vital Signs Vital Signs Date Time Temp Pulse Resp B/P (MAP) Pulse Ox O2 Delivery O2 Flow Rate FiO2 03/05/18 06:00 98.0 50 18 113/68 (83) 94 Room Air Capillary Refill : Less Than 3 Seconds I&O Intake and Output 03/05/18 00:00 Intake Total 1252 ml Output Total 200 ml Balance 1052 ml Intake Oral 1252 ml Output Urine Total 200 ml # Voids 6 # Bowel Movements 1 General: Alert, Oriented X3, Cooperative, No Acute Distress HEENT: Atraumatic, PERRLA, EOMI, Mucous Memb Moist/[place] Neck: Supple, No JVD Lungs: Clear to Auscultation Heart: Regular Rate, Other (well healed pacemaker incision site) Abdomen: Normal Bowel Sounds, Soft, No Tenderness Extremities: No Edema Neuro: Other (Left HP parkinsons gait) Results Lab Data Laboratory Tests 03/03/18 15:05: Urine Color AMBERH, Urine Clarity CLEAR, Urine pH 5, Urine Specific [place] 1.015L, Urine Protein NEGATIVE, Urine Glucose (UA) NEGATIVE, Urine Ketones NEGATIVE, Urine Nitrite NEGATIVE, Urine Bilirubin NEGATIVE, Urine Urobilinogen NORMAL, Urine Leukocyte Esterase 1+H, Urine RBC (Auto) 4+H, Urine RBC 5-10H, Urine WBC 5-10H, Urine Squamous Epithelial Cells 0-2, Urine Crystals NONE, Urine Bacteria NEGATIVE, Urine Casts NONE, Urine Mucus NEGATIVE, Urine Culture Indicated YES 03/05/18 05:41: White Blood Count 15.0H, Red Blood Count 3.27L, Hemoglobin 11.1L, Hematocrit 33L , Mean Corpuscular Volume 101H, Mean Corpuscular Hemoglobin 34, Mean Corpuscular Hemoglobin Concent 34, Red Cell Distribution Width 14.9H, Platelet Count 210, Mean Platelet Volume 10.1, Neutrophils (%) (Auto) 75, Lymphocytes (% ) (Auto) 11L, Monocytes (%) (Auto) 14H, Eosinophils (%) (Auto) 1, Basophils (%) (Auto) 0, Neutrophils # (Auto) 11.3H, Lymphocytes # (Auto) 1.6, Monocytes # ( Auto) 2.0H, Eosinophils # (Auto) 0.1, Basophils # (Auto) 0.0, Neutrophils % ( Manual) 78, Lymphocytes % (Manual) 11, Monocytes % (Manual) 9, Eosinophils % ( Manual) 2, Blood Morphology Comment NORMAL, Sodium Level 138, Potassium Level 4.2, Chloride Level 100, Carbon Dioxide Level 24, Anion Gap 14, Blood Urea Nitrogen 67H, Creatinine 4.30H, Estimat Glomerular Filtration Rate 13, BUN/ Creatinine Ratio 16, Glucose Level 102, Calcium Level 8.4L Microbiology 03/03/18 Urine Culture - Final, Complete See Comments Assessment/Plan Assessment and Plan Left sacral ala fracture s/p fall Nausea associated with dehydration IVFS HTN meds on hold Zofran ordered Cassidy Smyth Sinemet 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
[2018-03-05] MEDS: ASPIRIN E.C. 81 MG (ECOTRIN) TAB PO SCH (08:34)
[2018-03-05] MEDS: SINEMET CR 50/200 (CARBIDOPA/LEVODOPA SA) TAB PO SCH ×2 (08:34→20:47)
[2018-03-05] MEDS: SILVER SULFADIAZINE 50 GM CREAM TOP SCH (08:34)
[2018-03-05] MEDS: CALCITONIN NASAL 200 INTLU/AC (FORTICAL) 3.7 ML BTL NS SCH (08:34)
[2018-03-05] MEDS: DIVALPROEX 250 MG DELAYED RELEASE (DEPAKOTE) TAB PO SCH ×2 (08:34→20:48)
--- NOTE | 2018-03-05 08:35 | Individualized Plan of Care ---
Individualized Plan of Care Rehab Nursing IPOC Order Admission Date Mar 03, 2018 at 14:39 Current Orders Orders Admission Order(Inpt,Obs,Sdc) (03/03/18 15:10) Initiate Admission Nursing Pro .admission (03/03/18 15:10) Isolation Central Supply Req (03/03/18 15:10) Ua Culture If Indicated (03/03/18 15:12) Ambulate TID (03/03/18 15:33) Sequential Compression Device 08,20 (03/03/18 15:33) Dvt/Vte Risk - Notifiy Physici 08 (03/03/18 15:33) Urine Culture (03/03/18 15:05) Patient Visit (03/03/18 ) Pt Eval High Complexity (03/03/18 ) Patient Visit (03/03/18 ) Speech Sound Lang Comp (03/03/18 ) General/Regular (03/03/18 Lunch) Aspirin Enteric Coated Tablet (Ecotrin T (03/04/18 09:00) Calcitonin Nasal [place] (Miacalcin Nasal (03/04/18 09:00) Carbidopa/Levodopa Cr Tablet (Sinemet Cr (03/03/18 21:00) Divalproex Delay Release Tab (Depakote T (03/03/18 21:00) Magnesium Hydroxide Oral Susp (Mom Oral (03/03/18 17:15) Pantoprazole Tablet (Protonix Tablet) (03/04/18 07:00) Simvastatin Tablet (Zocor Tablet) (03/03/18 21:00) Acetaminophen Tablet (Tylenol Tablet) (03/03/18 17:30) Cholecalciferol Capsule/Tablet (Vitamin (03/04/18 07:00) Sertraline Tablet (Zoloft Tablet) (03/03/18 21:00) Silver Sulfadiazine 50 Gm (Ssd 1% 50 Gm) (03/04/18 09:00) Vital Signs: Routine (Order) 08,16,00 (03/03/18 18:34) Senior Sql Server Database Developer-Inpt Rehab Con (03/03/18 18:34) Rehab Nursing Orders-Ipoc (03/03/18 18:34) Physical Therapy Rehab Orders (03/03/18 18:34) Occupational Therapy Rehab Ord (03/03/18 18:34) Speech Therapy Rehab Orders (03/03/18 18:34) Weekly Weight (Lbs) WEEK (03/03/18 18:34) Consult Physician (03/03/18 18:34) Carbidopa/Levodopa 25/100 (Sinemet 25/10 (03/03/18 20:29) Sulfamethoxazole/Trimet Ds Tab (Bactrim (03/04/18 17:00) Sulfamethoxazole/Trimet Ds Tab (Bactrim (03/04/18 12:30) Cbc With Automated Diff (03/05/18 06:00) Basic Metabolic Panel (03/05/18 06:00) Patient Visit (03/04/18 ) Wheelchair Mgmt/Propulsn 15min (03/04/18 ) Functional Activities, Ea 15 (03/04/18 ) Gait Training, Ea 15 Min (03/04/18 ) Exercise Therap, Ea 15 Min (03/04/18 ) Manual Differential (03/05/18 05:41) Sulfamethoxazole/Trimet Ds Tab (Bactrim (03/05/18 09:00) Ns Iv 1000 Ml (Sodium Chloride 0.9%) (03/05/18 08:10) Ondansetron Oral Dissolve Tab (Zofran (03/05/18 08:30) Rehab Nursing Orders: Ongoing Assess. of Cognitive Status, Ongoing Assess. of Function Status, Disease Management & Educaiton, DVT Prophylaxis, Fall Prevention, Fluid/Electrolyte/Nutrition Mgmt, Infection Prevention, Medication Management & Education, Management of Risks & Complications, Management of Skin Intergrity, Nutrition Management, Pain Management, Patient/Family Support Other Nursing Orders: Monitor labs and signs and symptoms of dehydration PT IPOC Problem List: Activity Tolerance, Functional Strength, Safety, Balance, Gait, Transfer, Bed Mobility Treatment Plan: Continue Plan of Care Bed Mobility, Concurrent Therapy, Education, Functional Activity Vandana, Functional Strength, Group Therapy, Gait, Safety, Therapeutic Exercise, Transfers Treatment Duration: Mar 21, 2018 Frequency: At least 5 of 7 days/Wk (IRF) Estimated Hrs Per Day: 1.5 hours per day OT IPOC Problems: Decreased Activ Tolerance, Decreased UE Strength, Dependent Transfers , Impaired Bed Mobility, Impaired Cognition, Impaired Coordination, Impaired Funct Balance, Impaired I ADL's, Impaired Self-Care Skills, Restricted Funct UE ROM OT Treatment, Training and Edu: Yes Plan of Care: ADL Retraining, Functional Mobility, Group Exercise/Act as Ind, UE Funct Exercise/Act Treatment Duration: Mar 18, 2018 Frequency: At least 5 of 7 days/Wk (IRF) Estimated Hrs Per Day: 1.[address] IPOC Speech Therapy Treatment Plan: Discontinue ST Treatment Duration: Mar 05, 2018 Frequency: Modified Program (IRF) (X not indicated) Estimated Hrs Per Day: Other (skilled ST not indicated) Senior Sql Server Database Developer/Case Mgmt Senior Sql Server Database Developer/Case Managemen: Discharge Planning, Patient/Family Counseling Dietitian/Software Qa Manager Dietitian/Software Qa Manager to monitor nutritional status and make changes and/or recommendations as needed and work with speech pathology on dietary upgrades as the occur. Physician IPOC Medical Issues being managed closely and that require the 24 hour availability of a physician:Pain management Dehyration with azotemia and nausea park D Depression HTN with hypotension BPH CAD s/p pacemaker and atrial clip Chronic constipation Presumed UTI 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 who is cared for at home by son and was at [facility] at the w/c level for normal routine who had a decline s/p fall with resulting left sacral ala fracture.referred to IRU.Currently nauseated with elevated BUN/CR due at least in part to dehydration PCP has begun IVFS Case discussed with PCP.Patient may miss some therapy time today due to IllnessThepatient has a supportive daughter who lives in [facility] Medical Prognosis: Fair Anticipated Length of Stay: 03-18-18 return to PLOF or better Anticipated d/c Destination: Home with son and [facility] STEPHANIA DORSEY MD Mar 05, 2018 08:35
[2018-03-05] MEDS ORDERED: TRIM/SULFAMETH 160/800 (SEPTRA DS) TAB PO SCH (09:00)
--- NOTE | 2018-03-05 11:11 | Physical Therapy Daily Note ---
PT Daily Note-Current Subjective Pt. states "you all are working me too hard" States all he wants to do is rest, pt. found sitting up in w/c with head laying on bedside table Pain Numeric Pain Scale: 5-Moderate Pain Location: Left Location Body Site: Hip Pain Description: Ache Comment: lauryn Mental Status Patient Orientation: Normal For Age Transfers Functional [place] Measure 0=Not Assessed/NA 4=Minimal Assistance 1=Total Assistance 5=Supervision or Setup 2=Maximal Assistance 6=Modified [place] 3=Moderate Assistance 7=Complete IndependenceIRFPAI Quality Coding Scale 6 Independent with activity with or without an assistive device 5 Patient requires set up or clean up by helper. Patient completes activity by themselves 4 Supervision or touching assist (CGA). [place] provide cues , steadying assist 3 The helper provides less than half the effort to complete the activity 2 The helper provides more than half the effort to complete the activity 1 Dependent. The helper does all the effort to complete an activity 7 Patient refused to complete or attempt activity 9 The patient did not perform the activity before the current illness or injury 88 Not attempted due to Medical conditions or safety concerns Transfers (B, C, W/C) (FIM): 5 Scootin Rollin Supine to/from Sit: 5 Sit to/from Stand: 5 Weight Bearing Right Lower Extremity: Right Full Weight Bearing Left Lower Extremity: Left Full Weight Bearing Gait Training Does the Patient Walk?: Yes Distance (FIM): 7=829-51 ft (60ftx3) Gait Level of Assist: 4 Gait Persons Needed: 1 Gait Assistive Device: FWW w/c to follow, pt. yelps with pain every step of gait, instructed to wt bear on FWW heavier, pt. also c/o such fatigue with all Rx. Wheelchair Training Does the Pt Use a Wheelchair?: Yes Wheelchair (FIM): 4 Wheelchair Distance: 3=150 ft Type of Wheelchair: Manual needs much instruction Stair Training pt. declines attempting steps today, so fatigued Exercises Supine Ex: Bridging, Ankle pumps, Quad Set, Rolling, Glut sets, Heel Slides, Short Arc Quads, Scooting, Straight leg raise, Hip abd/add Supine Reps: 10 (x2) Seated Therapy Exercises: Ankle pumps, Sit to stand, Long arc quads, Hip flexion, Hip abd/add Seated Reps: 12 Assessment Current Status: Fair Progress pt. so fatigued, warm to touch, temp taken, 98.4, pt. closes eyes and wants to sleep often, c/o consistent pain in left hip and back/bottom, unable to attempt steps at this time PT Short Term Goals Short Term Goals Transfers (B,C,W/C) (FIM): 5 PT Long-Term Goals Schedule Checker Goals PT Long-Term Goals Time Frame: Mar 21, 2018 Transfers (B,C,W/C) (FIM): 6 Sit to Lying (QC): 6 Lying-Sitting on Side/Bed(QC): 6 Sit to Stand (QC): 6 Rollin Roll Left to Right (QC): 6 Chair/Duv-on-Kpypq Xfer(QC): 6 Car Transfer (QC): 6 Does the Patient Walk: Yes Gait (FIM): 2 Gait distance (FIM): 5=858-68 ft Distance: 125' Walk 10 feet (QC): 5 Walk 10ft-Uneven Surface(QC): 5 Walk 50ft with 2 Turns (QC): 5 Walk 150 ft (QC): 9 Gait Level of Assist: 5 Gait Assistive Device: FWW Does the Pt use WC or Scooter?: Yes Wheelchair (FIM): 5 Wheelchair distance (FIM): 3=150 ft Distance: 150' Wheelchair Level of Assist: 5 Wheel 50 feet with 2 turns (QC: 5 Stairs (FIM): 2 # of Steps: 4 1 Step (curb) (QC): 5 4 Steps (QC): 5 12 Steps (QC): 9 Stairs Level Of Assist: 5 Picking up an Object (QC): 5 PT Plan Treatment/Plan Treatment Plan: Continue Plan of Care Treatment Plan: Bed Mobility, Concurrent Therapy, Education, Functional Activity Vandana, Functional Strength, Group Therapy, Gait, Safety, Therapeutic Exercise, Transfers Treatment Duration: Mar 21, 2018 Frequency: At least 5 of 7 days/Wk (IRF) Estimated Hrs Per Day: 1.5 hours per day Patient and/or Family Agrees t: Yes Safety Risks/Education Patient Education: Gait Training, Transfer Techniques, Correct Positioning, W/ C Management, Safety Issues Teaching Recipient: Patient Teaching Methods: Demonstration, Discussion Response to Teaching: Verbalize Understanding, Return Demonstration, Reinforcement Needed Time/GCodes Time In: 930 Time Out: 1100 Total Billed Treatment Time: 90 Total Billed Treatment 1,GT25m,FA20m,EX45mm G Codes Necessary: No PT/OT Therapy GCodes Functional Limitation-Current Modifier: CI Functional Limitation-Goal Modifier: CI ISABELLA MEEKS VISION MIXER Mar 05, 2018 11:11
[2018-03-05] MEDS ORDERED: cefTRIAXone INJECTION 1,000 MG in NS (IVPB) 50 ML IV SCH (12:00)
[2018-03-05] MEDS: ONDANSETRON 4 MG (ZOFRAN) ORAL DISSOLVE TAB PO PRN (12:05)
--- NOTE | 2018-03-05 12:49 | Progress Note (SOAP) ---
Subjective Date Seen by Provider: Mar 05, 2018 Time Seen by Provider: 12:46 Subjective/Events-last exam Fwup fall with left sacral ala fracture causing worsening debility, UTI, hypotension, history of CVA with left sided weakness and neglect. Pain doing okay with tylenol. Objective Exam Vital Signs Date Time Temp Pulse Resp B/P (MAP) Pulse Ox O2 Delivery O2 Flow Rate FiO2 03/05/18 09:00 Room Air 03/05/18 06:00 98.0 50 18 113/68 (83) 94 Room Air 03/04/18 21:00 Room Air 03/04/18 17:15 98.9 69 14 93/59 (70) 92 Room Air I & O 03/05/18 07:00 Intake Total 1060 ml Output Total 550 ml Balance 510 ml Capillary Refill : Less Than 3 Seconds General Appearance: No Apparent Distress Respiratory: Lungs Clear Cardiovascular: Regular Rate, Rhythm Gastrointestinal: normal bowel sounds, non tender, soft Extremity: Non Tender, No Calf Tenderness, No Pedal Edema Neurologic/Psychiatric: Alert, Oriented x3 Results Lab Laboratory Tests 03/05/18 05:41: White Blood Count 15.0H, Red Blood Count 3.27L, Hemoglobin 11.1L, Hematocrit 33L , Mean Corpuscular Volume 101H, Mean Corpuscular Hemoglobin 34, Mean Corpuscular Hemoglobin Concent 34, Red Cell Distribution Width 14.9H, Platelet Count 210, Mean Platelet Volume 10.1, Neutrophils (%) (Auto) 75, Lymphocytes (% ) (Auto) 11L, Monocytes (%) (Auto) 14H, Eosinophils (%) (Auto) 1, Basophils (%) (Auto) 0, Neutrophils # (Auto) 11.3H, Lymphocytes # (Auto) 1.6, Monocytes # ( Auto) 2.0H, Eosinophils # (Auto) 0.1, Basophils # (Auto) 0.0, Neutrophils % ( Manual) 78, Lymphocytes % (Manual) 11, Monocytes % (Manual) 9, Eosinophils % ( Manual) 2, Blood Morphology Comment NORMAL, Sodium Level 138, Potassium Level 4.2, Chloride Level 100, Carbon Dioxide Level 24, Anion Gap 14, Blood Urea Nitrogen 67H, Creatinine 4.30H, Estimat Glomerular Filtration Rate 13, BUN/ Creatinine Ratio 16, Glucose Level 102, Calcium Level 8.4L Microbiology 7/23/18 Urine Culture - Final, Complete See Comments Assessment/Plan Assessment/Plan Assess & Plan/Chief Complaint 1. Left Sacral Ala Fracture with worsening debility--admitted for PT/OT, started on miacalcin nasal spray to assist in fracture healing and pain 2. UTI--switched to Rocephin due to acute renal failure 3. Hypertension with current hypotension--BP meds on hold and monitoring BP 4. Parkinson's--sinemet resumed 5. 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 Acute Renal Failure--likely dehydration and UTI--IVFs and IV rocephin started and will monitor BUN/CR and BP in response Clinical Quality Measures DVT/VTE Risk/Contraindication: Risk Factor Score Per Nursin RFS Level Per Nursing on Admit: 4+=Very High NAPOLEON AKHTAR DO Mar 05, 2018 12:49
--- NOTE | 2018-03-05 15:47 | Occupational Ther Daily Note ---
OT Current Status-Daily Note Subjective Pt. reports that he is tired, but does not report pain level. Appearance Pt. is in bed. Agrees to work with OT but declines showering. Mental Status/Objective Patient Orientation: Unable to Assess Functional [place] Measure 0=Not Assessed/NA 4=Minimal Assistance 1=Total Assistance 5=Supervision or Setup 2=Maximal Assistance 6=Modified [place] 3=Moderate Assistance 7=Complete [place] ADL-Treatment Functional [place] Measure 0=Not Assessed/NA 4=Minimal Assistance 1=Total Assistance 5=Supervision or Setup 2=Maximal Assistance 6=Modified [place] 3=Moderate Assistance 7=Complete IndependenceIRFPAI Quality Coding Scale 6 Independent with activity with or without an assistive device 5 Patient requires set up or clean up by helper. Patient completes activity by themselves 4 Supervision or touching assist (CGA). [place] provide cues , steadying assist 3 The helper provides less than half the effort to complete the activity 2 The helper provides more than half the effort to complete the activity 1 Dependent. The helper does all the effort to complete an activity 7 Patient refused to complete or attempt activity 9 The patient did not perform the activity before the current illness or injury 88 Not attempted due to Medical conditions or safety concerns Lower Body Dressing (FIM): 2 Lower Body Dressing (QC): 2 On/Off Footwear (QC): 2 Toileting (FIM): 1 (Pt. was incontinent of urine in bed.) Toileting Hygiene (QC): 1 Transfers (B, C, W/C) (FIM): 4 (Min assist supine-sit and sit to stand.) Toilet/Commode Transfer (FIM): 4 Toilet Transfer (QC): 4 Other Treatment Pt. declines bathing. Noted that he had been incontinent of urine in pants. Transferred supine-sit and stood while OT doffed pants. OT cleansed bill area as pt. unable to. Pt. reported that he needed to have a BM. Transferred to wheelchair and then to toilet with min assist. Pt. had BM but unable to cleanse self. Stood while OT did this for him. Pt. states that he can't get his new pants on, so OT dons brief and pants for him. Transferred back to chair. Encouraged pt. to self propel wheelchair but he does not do this, and requires max cues. OT assisted him to therapy gym, and encouraged him to complete armbike. Pt. completed 10 minutes on armbike, but took multiple rest breaks and required encouragement to continue doing for self. All needs met back in room and pt. awaiting PT. Education OT Patient Education: Correct positioning, Exercise program, Modified ADL techniques, Progress toward Goal/Update tx plan, Purpose of tx/functional activities, Reviewed precautions, Rehab process, Transfer techniques Teaching Recipient: Patient Teaching Methods: Demonstration, Discussion Response to Teaching: Verbalize Understanding, Return Demonstration OT Short Term Goals Short Term Goals Time Frame: Mar 11, 2018 Eating(FIM): 5 Grooming(FIM): 4 Bathing(FIM): 4 Upper Body Dressing(FIM): 4 Lower Body Dressing(FIM): 3 Toileting(FIM): 4 Transfers (B,C,W/C) (FIM): 5 Toilet/Commode Transfer(FIM): 5 Shower Transfer(FIM): 4 Additional Short Term Goals: 1-Demonstrate ADL Tasks, 2-Verbalize Understanding , 3-ImproveStrength/Vandana 1=Demonstrate adherence to instructed precautions during ADL tasks. 2=Patient will verbalize/demonstrate understanding of assistive devices/ modifications for ADL. 3=Patient will improve strength/tolerance for activity to enable patient to perform ADL's. OT Fiberline Supervisor Goals Fiberline Supervisor Goals Time Frame: Mar 18, 2018 Eating (FIM): 6 Eating (QC): 6 Groomin Oral Hygiene (QC): 5 Bathing(FIM): 4 Shower/Bathe Self (QC): 4 Upper Body Dressing(FIM): 5 Upper Body Dressing (QC): 4 Lower Body Dressing(FIM): 4 Lower Body Dressing (QC): 4 On/Off Footwear (QC): 4 Toileting(FIM): 6 Toileting Hygiene (QC): 5 Transfers (B,C,W/C) (FIM): 5 Toilet/Commode Transfer(FIM): 5 Toilet/Commode Transfer (QC): 5 Shower Transfer(FIM): 5 Additional Goals: 1-Demonstrate ADL Tasks, 2-Verbalize Understanding, 3- ImproveStrength/Vandana 1=Demonstrate adherence to instructed precautions during ADL tasks. 2=Patient will verbalize/demonstrate understanding of assistive devices/ modifications for ADL. 3=Patient will improve strength/tolerance for activity to enable patient to perform ADL's. OT Education/Plan Problem List/Assessment Assessment: Decreased Activ Tolerance, Decreased UE Strength, Dependent Transfers, Impaired Bed Mobility, Impaired Cognition, Impaired Coordination, Impaired Funct Balance, Impaired I ADL's, Impaired Self-Care Skills, Restricted Funct UE ROM Discharge Recommendations Plan/Recommendations: Continue POC Therapy D/C Recommendations: Home w/ Family Support, Scheduled Assistance Treatment Plan/Plan of Care Treatment,Training & Education: Yes Patient would benefit from OT for education, treatment and training to promote independence in ADL's, mobility, safety and/or upper extremity function for ADL' s. Plan of Care: ADL Retraining, Functional Mobility, Group Exercise/Act as Ind, UE Funct Exercise/Act Treatment Duration: Mar 18, 2018 Frequency: At least 5 of 7 days/Wk (IRF) Estimated Hrs Per Day: 1.5 hours per day Agreement: Yes Rehab Potential: Fair Time/GCodes Start Time: 08:30 Stop Time: 09:30 Total Time Billed (hr/min): 60 Billed Treatment Time 1, ADL x 45minutes, Ex x 15minutes PT/OT Therapy GCodes Functional Limitation-Current Modifier: CI Functional Limitation-Goal Modifier: CELI TAVERAS OT Mar 05, 2018 15:47
--- NOTE | 2018-03-05 15:54 | Occupational Ther Daily Note ---
OT Current Status-Daily Note Subjective No pain reported. Appearance Pt. in bed. Agrees to work with OT. Mental Status/Objective Patient Orientation: Unable to Assess Functional [place] Measure 0=Not Assessed/NA 4=Minimal Assistance 1=Total Assistance 5=Supervision or Setup 2=Maximal Assistance 6=Modified [place] 3=Moderate Assistance 7=Complete [place] ADL-Treatment Functional [place] Measure 0=Not Assessed/NA 4=Minimal Assistance 1=Total Assistance 5=Supervision or Setup 2=Maximal Assistance 6=Modified [place] 3=Moderate Assistance 7=Complete IndependenceIRFPAI Quality Coding Scale 6 Independent with activity with or without an assistive device 5 Patient requires set up or clean up by helper. Patient completes activity by themselves 4 Supervision or touching assist (CGA). [place] provide cues , steadying assist 3 The helper provides less than half the effort to complete the activity 2 The helper provides more than half the effort to complete the activity 1 Dependent. The helper does all the effort to complete an activity 7 Patient refused to complete or attempt activity 9 The patient did not perform the activity before the current illness or injury 88 Not attempted due to Medical conditions or safety concerns Toileting (FIM): 1 Toileting Hygiene (QC): 1 (Pt. is unable to cleanse self after having BM.) Transfers (B, C, W/C) (FIM): 4 (Min assist supine-sit and sit-stand/transfer to wheelchair.) Toilet/Commode Transfer (FIM): 4 Toilet Transfer (QC): 4 Other Treatment After toileting task, pt. was taken to therapy gym. Worked on UE strengthening with ball toss back and forth. Pt. requires multiple cues and encouragement. Will toss the ball back, but then will stop to talk. Requires cues to stay on task. After this session, pt. taken back to room and transferred back to bed with min assist needed. All needs met in room and pt. positioned. Education OT Patient Education: Correct positioning, Exercise program, Modified ADL techniques, Progress toward Goal/Update tx plan, Purpose of tx/functional activities, Reviewed precautions, Rehab process, Transfer techniques Teaching Recipient: Patient Teaching Methods: Demonstration, Discussion Response to Teaching: Verbalize Understanding, Return Demonstration OT Short Term Goals Short Term Goals Time Frame: Mar 11, 2018 Eating(FIM): 5 Grooming(FIM): 4 Bathing(FIM): 4 Upper Body Dressing(FIM): 4 Lower Body Dressing(FIM): 3 Toileting(FIM): 4 Transfers (B,C,W/C) (FIM): 5 Toilet/Commode Transfer(FIM): 5 Shower Transfer(FIM): 4 Additional Short Term Goals: 1-Demonstrate ADL Tasks, 2-Verbalize Understanding , 3-ImproveStrength/Vandana 1=Demonstrate adherence to instructed precautions during ADL tasks. 2=Patient will verbalize/demonstrate understanding of assistive devices/ modifications for ADL. 3=Patient will improve strength/tolerance for activity to enable patient to perform ADL's. OT Prison Goals Finish Patcher Goals Time Frame: Mar 18, 2018 Eating (FIM): 6 Eating (QC): 6 Groomin Oral Hygiene (QC): 5 Bathing(FIM): 4 Shower/Bathe Self (QC): 4 Upper Body Dressing(FIM): 5 Upper Body Dressing (QC): 4 Lower Body Dressing(FIM): 4 Lower Body Dressing (QC): 4 On/Off Footwear (QC): 4 Toileting(FIM): 6 Toileting Hygiene (QC): 5 Transfers (B,C,W/C) (FIM): 5 Toilet/Commode Transfer(FIM): 5 Toilet/Commode Transfer (QC): 5 Shower Transfer(FIM): 5 Additional Goals: 1-Demonstrate ADL Tasks, 2-Verbalize Understanding, 3- ImproveStrength/Vandana 1=Demonstrate adherence to instructed precautions during ADL tasks. 2=Patient will verbalize/demonstrate understanding of assistive devices/ modifications for ADL. 3=Patient will improve strength/tolerance for activity to enable patient to perform ADL's. OT Education/Plan Problem List/Assessment Assessment: Decreased Activ Tolerance, Decreased UE Strength, Dependent Transfers, Impaired Bed Mobility, Impaired Cognition, Impaired Coordination, Impaired Funct Balance, Impaired I ADL's, Impaired Self-Care Skills, Restricted Funct UE ROM Discharge Recommendations Plan/Recommendations: Continue POC Therapy D/C Recommendations: Home w/ Family Support, Scheduled Assistance Treatment Plan/Plan of Care Treatment,Training & Education: Yes Patient would benefit from OT for education, treatment and training to promote independence in ADL's, mobility, safety and/or upper extremity function for ADL' s. Plan of Care: ADL Retraining, Functional Mobility, Group Exercise/Act as Ind, UE Funct Exercise/Act Treatment Duration: Mar 18, 2018 Frequency: At least 5 of 7 days/Wk (IRF) Estimated Hrs Per Day: 1.5 hours per day Agreement: Yes Rehab Potential: Fair Time/GCodes Start Time: 13:40 Stop Time: 14:10 Total Time Billed (hr/min): 30 Billed Treatment Time 1, FA x 2 PT/OT Therapy GCodes Functional Limitation-Current Modifier: CI Functional Limitation-Goal Modifier: CELI TAVERAS OT Mar 05, 2018 15:54
[2018-03-05] MEDS: NS IV 1000 ML 1,000 ML IV SCH (17:28)
[2018-03-05 17:40] VITALS: BP 110/70
[2018-03-05] MEDS: SIMvastatin 40 MG (ZOCOR) TAB PO SCH (20:48)
[2018-03-05] MEDS: SERTRALINE 50 MG (ZOLOFT) TABLET PO SCH (20:50)
[2018-03-05] MEDS: ACETAMINOPHEN 500 MG TAB (TYLENOL) PO PRN (20:54)
[2018-03-06] MEDS: NS IV 1000 ML 1,000 ML IV SCH ×3 (01:03→17:27)
[2018-03-06 06:00] VITALS: BP 104/59
[2018-03-06] MEDS: VITAMIN D3 5,000 UNITS (CHOLECALCIFEROL ) CAPSULE PO SCH (07:12)
[2018-03-06] MEDS: PANTOPRAZOLE 40 MG (PROTONIX) TAB PO SCH ×2 (07:12→17:52)
--- NOTE | 2018-03-06 07:52 | PM & R (SOAP) Progress Note ---
Subjective This was a face to face visit with the patient. Date Seen by Provider: Mar 06, 2018 Time Seen by Provider: 07:30 Subjective/Events-last exam Patient was seen in his room this AM C/O breakthrough painleft hip but nausea imoroved and rehydration continues with IV Fluids.Patient SBA for transfers Review of Systems Musculoskeletal: leg pain Objective Physician Exam Last Set of Vital Signs Vital Signs Date Time Temp Pulse Resp B/P (MAP) Pulse Ox O2 Delivery O2 Flow Rate FiO2 03/06/18 06:00 98.5 59 18 104/59 (74) 91 Room Air Capillary Refill : Less Than 3 Seconds I&O Intake and Output 03/06/18 00:00 Intake Total 2150 ml Output Total 750 ml Balance 1400 ml Intake Oral 1100 ml IV Total 1050 ml Output Urine Total 750 ml # Voids 2 General: Alert, Oriented X3, Cooperative, No Acute Distress HEENT: Atraumatic, PERRLA, EOMI, Mucous Memb Moist/Peculiar Neck: Supple, No JVD Lungs: Clear to Auscultation Heart: Regular Rate, Other (well healed pacemaker incision site) Abdomen: Normal Bowel Sounds, Soft, No Tenderness Extremities: No Edema Neuro: Other (Left HP parkinsons gait) Results Lab Data Laboratory Tests 03/03/18 14:39: Lab Scanned Report Referred Lab Report 03/03/18 15:05: Urine Color AMBERH, Urine Clarity CLEAR, Urine pH 5, Urine Specific [place] 1.015L, Urine Protein NEGATIVE, Urine Glucose (UA) NEGATIVE, Urine Ketones NEGATIVE, Urine Nitrite NEGATIVE, Urine Bilirubin NEGATIVE, Urine Urobilinogen NORMAL, Urine Leukocyte Esterase 1+H, Urine RBC (Auto) 4+H, Urine RBC 5-10H, Urine WBC 5-10H, Urine Squamous Epithelial Cells 0-2, Urine Crystals NONE, Urine Bacteria NEGATIVE, Urine Casts NONE, Urine Mucus NEGATIVE, Urine Culture Indicated YES 03/05/18 05:41: White Blood Count 15.0H, Red Blood Count 3.27L, Hemoglobin 11.1L, Hematocrit 33L , Mean Corpuscular Volume 101H, Mean Corpuscular Hemoglobin 34, Mean Corpuscular Hemoglobin Concent 34, Red Cell Distribution Width 14.9H, Platelet Count 210, Mean Platelet Volume 10.1, Neutrophils (%) (Auto) 75, Lymphocytes (% ) (Auto) 11L, Monocytes (%) (Auto) 14H, Eosinophils (%) (Auto) 1, Basophils (%) (Auto) 0, Neutrophils # (Auto) 11.3H, Lymphocytes # (Auto) 1.6, Monocytes # ( Auto) 2.0H, Eosinophils # (Auto) 0.1, Basophils # (Auto) 0.0, Neutrophils % ( Manual) 78, Lymphocytes % (Manual) 11, Monocytes % (Manual) 9, Eosinophils % ( Manual) 2, Blood Morphology Comment NORMAL, Sodium Level 138, Potassium Level 4.2, Chloride Level 100, Carbon Dioxide Level 24, Anion Gap 14, Blood Urea Nitrogen 67H, Creatinine 4.30H, Estimat Glomerular Filtration Rate 13, BUN/ Creatinine Ratio 16, Glucose Level 102, Calcium Level 8.4L Microbiology 03/03/18 Urine Culture - Final, Complete See Comments Assessment/Plan Assessment and Plan Left sacral ala fracture s/p fall Dehydration improved with IVFS [place] D Sinemet 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
--- NOTE | 2018-03-06 08:54 | Physical Therapy Daily Note ---
PT Daily Note-Current Subjective Pt. agrees to Rx but states he still has pain and although he slept well he still feels tired . requested Tylenol for pain at end of Rx Pain Numeric Pain Scale: 3 Location: Left Location Body Site: Hip Pain Description: Ache Mental Status Patient Orientation: Person, Place, Time, Situation Attachments: IV Transfers Functional [place] Measure 0=Not Assessed/NA 4=Minimal Assistance 1=Total Assistance 5=Supervision or Setup 2=Maximal Assistance 6=Modified [place] 3=Moderate Assistance 7=Complete IndependenceIRFPAI Quality Coding Scale 6 Independent with activity with or without an assistive device 5 Patient requires set up or clean up by helper. Patient completes activity by themselves 4 Supervision or touching assist (CGA). [place] provide cues , steadying assist 3 The helper provides less than half the effort to complete the activity 2 The helper provides more than half the effort to complete the activity 1 Dependent. The helper does all the effort to complete an activity 7 Patient refused to complete or attempt activity 9 The patient did not perform the activity before the current illness or injury 88 Not attempted due to Medical conditions or safety concerns Transfers (B, C, W/C) (FIM): 5 Scootin Rollin Supine to/from Sit: 5 Sit to/from Stand: 5 Bed to/from Chair: 5 Weight Bearing Right Lower Extremity: Right Full Weight Bearing Left Lower Extremity: Left Full Weight Bearing Gait Training Does the Patient Walk?: Yes Gait (FIM): 2 Distance (FIM): 9=258-15 ft (75ftx2) Gait Level of Assist: 4 Gait Persons Needed: 1 Gait Assistive Device: FWW antalgic, slow, "ouch" between each step Wheelchair Training Does the Pt Use a Wheelchair?: Yes Wheelchair (FIM): 4 Wheelchair Distance: 3=150 ft Wheelchair Level of Assist: 4 Type of Wheelchair: Manual instruction for braking at times and for maneuvering around objects Stair Training Stair Training: Handrails/: 2 handrails Stairs (FIM): 2 #of Steps: 4 Stairs: Pattern: Step to Level of Assist: 4 skilled verbal instruction for all, sequence foot placement etc Exercises Supine Ex: Ankle pumps, Quad Set, Rolling, Glut sets, Heel Slides, Short Arc Quads, Scooting, Hip abd/add Supine Reps: 15 Seated Therapy Exercises: Ankle pumps, Sit to stand, Long arc quads Seated Reps: 10 Treatments toileted for seated urination , required mod assist to mange pants up down, max assist to don shoes Assessment Current Status: Good Progress slow progress PT Short Term Goals Short Term Goals Transfers (B,C,W/C) (FIM): 5 PT Correction Goals Bookkeeping Teacher Goals PT Correction Goals Time Frame: Mar 21, 2018 Transfers (B,C,W/C) (FIM): 6 Sit to Lying (QC): 6 Lying-Sitting on Side/Bed(QC): 6 Sit to Stand (QC): 6 Rollin Roll Left to Right (QC): 6 Chair/Hik-qk-[place] Xfer(QC): 6 Car Transfer (QC): 6 Does the Patient Walk: Yes Gait (FIM): 2 Gait distance (FIM): 4=915-59 ft Distance: 125' Walk 10 feet (QC): 5 Walk 10ft-Uneven Surface(QC): 5 Walk 50ft with 2 Turns (QC): 5 Walk 150 ft (QC): 9 Gait Level of Assist: 5 Gait Assistive Device: FWW Does the Pt use WC or Scooter?: Yes Wheelchair (FIM): 5 Wheelchair distance (FIM): 3=150 ft Distance: 150' Wheelchair Level of Assist: 5 Wheel 50 feet with 2 turns (QC: 5 Stairs (FIM): 2 # of Steps: 4 1 Step (curb) (QC): 5 4 Steps (QC): 5 12 Steps (QC): 9 Stairs Level Of Assist: 5 Picking up an Object (QC): 5 PT Plan Treatment/Plan Treatment Plan: Continue Plan of Care Treatment Plan: Bed Mobility, Concurrent Therapy, Education, Functional Activity Vandana, Functional Strength, Group Therapy, Gait, Safety, Therapeutic Exercise, Transfers Treatment Duration: Mar 21, 2018 Frequency: At least 5 of 7 days/Wk (IRF) Estimated Hrs Per Day: 1.5 hours per day Patient and/or Family Agrees t: Yes Safety Risks/Education Patient Education: Gait Training, Transfer Techniques, Steps, Correct Positioning, W/C Management, Disease Process, Safety Issues Teaching Recipient: Patient Teaching Methods: Demonstration, Discussion Response to Teaching: Verbalize Understanding, Return Demonstration, Reinforcement Needed Time/GCodes Time In: 800 Time Out: 900 Total Billed Treatment Time: 60 Total Billed Treatment 1,FA25m,EX15m,GT20m G Codes Necessary: No PT/OT Therapy GCodes Functional Limitation-Current Modifier: CI Functional Limitation-Goal Modifier: ISABELLA TEIXEIRA GREASE MACHINE WORKER Mar 06, 2018 08:54
[2018-03-06] MEDS: ACETAMINOPHEN 500 MG TAB (TYLENOL) PO PRN ×2 (08:59→13:55)
[2018-03-06] MEDS: SINEMET CR 50/200 (CARBIDOPA/LEVODOPA SA) TAB PO SCH ×2 (09:00→20:30)
[2018-03-06] MEDS: DIVALPROEX 250 MG DELAYED RELEASE (DEPAKOTE) TAB PO SCH ×2 (09:00→20:31)
[2018-03-06] MEDS: ASPIRIN E.C. 81 MG (ECOTRIN) TAB PO SCH (09:00)
[2018-03-06] MEDS: cefTRIAXone INJECTION 1,000 MG in NS (IVPB) 50 ML IV SCH (09:01)
[2018-03-06] MEDS: CALCITONIN NASAL 200 INTLU/AC (FORTICAL) 3.7 ML BTL NS SCH (09:03)
--- NOTE | 2018-03-06 10:25 | Occupational Ther Daily Note ---
OT Current Status-Daily Note Subjective Pt. reports that his bottom hurts in shower when sitting on hard surface. When appropriate, pt. transferred to wheelchair with cushion. Appearance Pt. in bed. Agrees to work with OT. Mental Status/Objective Patient Orientation: Person, Place, Time, Situation Functional [place] Measure 0=Not Assessed/NA 4=Minimal Assistance 1=Total Assistance 5=Supervision or Setup 2=Maximal Assistance 6=Modified [place] 3=Moderate Assistance 7=Complete [place] Attachments: IV ADL-Treatment Functional [place] Measure 0=Not Assessed/NA 4=Minimal Assistance 1=Total Assistance 5=Supervision or Setup 2=Maximal Assistance 6=Modified [place] 3=Moderate Assistance 7=Complete IndependenceIRFPAI Quality Coding Scale 6 Independent with activity with or without an assistive device 5 Patient requires set up or clean up by helper. Patient completes activity by themselves 4 Supervision or touching assist (CGA). [place] provide cues , steadying assist 3 The helper provides less than half the effort to complete the activity 2 The helper provides more than half the effort to complete the activity 1 Dependent. The helper does all the effort to complete an activity 7 Patient refused to complete or attempt activity 9 The patient did not perform the activity before the current illness or injury 88 Not attempted due to Medical conditions or safety concerns Grooming (FIM): 5 (Set up to brush hair.) Bathing (FIM): 2 (Pt. able to "dab" at arms and chest. OT went over all parts so he would be washed thoroughly. Pt. unable to reach rear bill area.) Shower/Bathe Self (QC): 2 Upper Body (FIM): 2 Upper Body Dressing (QC): 2 Lower Body Dressing (FIM): 2 Lower Body Dressing (QC): 2 On/Off Footwear (QC): 1 Transfers (B, C, W/C) (FIM): 4 (Min assist supine-sit, sit-stand and transfer back to wheelchair.) Shower Transfer(FIM): 4 Other Treatment Pt. requires multiple cues and encouragement to do for self. After shower, transferred to wheelchair. Encouraged pt. to self propel wheelchair to therapy gym. Pt. does attempt, but overall requires max assist. Completed 10 minutes on armbike with multiple rest breaks to increase overall strength and independence. Pt. fatigues easily and states that he is very tired. All needs met. Education OT Patient Education: Correct positioning, Exercise program, Modified ADL techniques, Progress toward Goal/Update tx plan, Purpose of tx/functional activities, Reviewed precautions, Rehab process, Transfer techniques Teaching Recipient: Patient Teaching Methods: Demonstration, Discussion Response to Teaching: Verbalize Understanding, Return Demonstration OT Short Term Goals Short Term Goals Time Frame: Mar 11, 2018 Eating(FIM): 5 Grooming(FIM): 4 Bathing(FIM): 4 Upper Body Dressing(FIM): 4 Lower Body Dressing(FIM): 3 Toileting(FIM): 4 Transfers (B,C,W/C) (FIM): 5 Toilet/Commode Transfer(FIM): 5 Shower Transfer(FIM): 4 Additional Short Term Goals: 1-Demonstrate ADL Tasks, 2-Verbalize Understanding , 3-ImproveStrength/Vandana 1=Demonstrate adherence to instructed precautions during ADL tasks. 2=Patient will verbalize/demonstrate understanding of assistive devices/ modifications for ADL. 3=Patient will improve strength/tolerance for activity to enable patient to perform ADL's. OT Custodial Goals Tugboat Dispatcher Goals Time Frame: Mar 18, 2018 Eating (FIM): 6 Eating (QC): 6 Groomin Oral Hygiene (QC): 5 Bathing(FIM): 4 Shower/Bathe Self (QC): 4 Upper Body Dressing(FIM): 5 Upper Body Dressing (QC): 4 Lower Body Dressing(FIM): 4 Lower Body Dressing (QC): 4 On/Off Footwear (QC): 4 Toileting(FIM): 6 Toileting Hygiene (QC): 5 Transfers (B,C,W/C) (FIM): 5 Toilet/Commode Transfer(FIM): 5 Toilet/Commode Transfer (QC): 5 Shower Transfer(FIM): 5 Additional Goals: 1-Demonstrate ADL Tasks, 2-Verbalize Understanding, 3- ImproveStrength/Vandana 1=Demonstrate adherence to instructed precautions during ADL tasks. 2=Patient will verbalize/demonstrate understanding of assistive devices/ modifications for ADL. 3=Patient will improve strength/tolerance for activity to enable patient to perform ADL's. OT Education/Plan Problem List/Assessment Assessment: Decreased Activ Tolerance, Decreased UE Strength, Dependent Transfers, Impaired Bed Mobility, Impaired Coordination, Impaired Funct Balance , Impaired I ADL's, Impaired Self-Care Skills, Restricted Funct UE ROM Discharge Recommendations Plan/Recommendations: Continue POC Therapy D/C Recommendations: Home w/ Family Support, Scheduled Assistance Treatment Plan/Plan of Care Treatment,Training & Education: Yes Patient would benefit from OT for education, treatment and training to promote independence in ADL's, mobility, safety and/or upper extremity function for ADL' s. Plan of Care: ADL Retraining, Functional Mobility, Group Exercise/Act as Ind, UE Funct Exercise/Act Treatment Duration: Mar 18, 2018 Frequency: At least 5 of 7 days/Wk (IRF) Estimated Hrs Per Day: 1.5 hours per day Agreement: Yes Rehab Potential: Fair Time/GCodes Start Time: 09:00 Stop Time: 10:30 Total Time Billed (hr/min): 90 Billed Treatment Time 1, ADL x 60minutes, Ex x 30minutes PT/OT Therapy GCodes Functional Limitation-Current Modifier: CI Functional Limitation-Goal Modifier: CELI TAVERAS OT Mar 06, 2018 10:25
[2018-03-06] MEDS: SILVER SULFADIAZINE 50 GM CREAM TOP SCH (10:59)
--- NOTE | 2018-03-06 14:18 | Physical Therapy Daily Note ---
PT Daily Note-Current Subjective "ouch", said with every step for the first 20 feet. Transfers Functional [place] Measure 0=Not Assessed/NA 4=Minimal Assistance 1=Total Assistance 5=Supervision or Setup 2=Maximal Assistance 6=Modified [place] 3=Moderate Assistance 7=Complete IndependenceIRFPAI Quality Coding Scale 6 Independent with activity with or without an assistive device 5 Patient requires set up or clean up by helper. Patient completes activity by themselves 4 Supervision or touching assist (CGA). [place] provide cues , steadying assist 3 The helper provides less than half the effort to complete the activity 2 The helper provides more than half the effort to complete the activity 1 Dependent. The helper does all the effort to complete an activity 7 Patient refused to complete or attempt activity 9 The patient did not perform the activity before the current illness or injury 88 Not attempted due to Medical conditions or safety concerns Transfers (B, C, W/C) (FIM): 4 Supine to/from Sit: 4 Sit to/from Stand: 4 CG-min assist with bed mobiltiy and sit to stand, primarily to provide tactile cues to get up. Toilet transfer with CGA and min assist with clothing managementl. Weight Bearing Right Lower Extremity: Right Full Weight Bearing Left Lower Extremity: Left Full Weight Bearing Gait Training Does the Patient Walk?: Yes Gait (FIM): 2 Distance (FIM): 5=532-55 ft Distance: 50 ft x 2, 20 ft x 1 Gait Assistive Device: FWW short step length and decreased velocity. Treatments Bed mobility and gait training; toileted. Pt in bed post treatment with needs met. Assessment Current Status: Good Progress Pt presents with decreased safety with gait and decreased gait tolerance. PT Short Term Goals Short Term Goals Transfers (B,C,W/C) (FIM): 5 PT Business Reporter Goals Business Reporter Goals PT Business Reporter Goals Time Frame: Mar 21, 2018 Transfers (B,C,W/C) (FIM): 6 Sit to Lying (QC): 6 Lying-Sitting on Side/Bed(QC): 6 Sit to Stand (QC): 6 Rollin Roll Left to Right (QC): 6 Chair/Pxb-bq-Upzkt Xfer(QC): 6 Car Transfer (QC): 6 Does the Patient Walk: Yes Gait (FIM): 2 Gait distance (FIM): 9=207-72 ft Distance: 125' Walk 10 feet (QC): 5 Walk 10ft-Uneven Surface(QC): 5 Walk 50ft with 2 Turns (QC): 5 Walk 150 ft (QC): 9 Gait Level of Assist: 5 Gait Assistive Device: FWW Does the Pt use WC or Scooter?: Yes Wheelchair (FIM): 5 Wheelchair distance (FIM): 3=150 ft Distance: 150' Wheelchair Level of Assist: 5 Wheel 50 feet with 2 turns (QC: 5 Stairs (FIM): 2 # of Steps: 4 1 Step (curb) (QC): 5 4 Steps (QC): 5 12 Steps (QC): 9 Stairs Level Of Assist: 5 Picking up an Object (QC): 5 PT Plan Problem List Problem List: Activity Tolerance, Functional Strength, Safety Treatment/Plan Treatment Plan: Continue Plan of Care Treatment Plan: Bed Mobility, Concurrent Therapy, Education, Functional Activity Vandana, Functional Strength, Group Therapy, Gait, Safety, Therapeutic Exercise, Transfers Treatment Duration: Mar 21, 2018 Frequency: At least 5 of 7 days/Wk (IRF) Estimated Hrs Per Day: 1.5 hours per day Patient and/or Family Agrees t: Yes Safety Risks/Education Patient Education: Safety Issues Teaching Recipient: Patient Teaching Methods: Discussion Response to Teaching: Reinforcement Needed Time/GCodes Time In: 1315 Time Out: 1345 Total Billed Treatment Time: 30 Total Billed Treatment visit GT 30 PT/OT Therapy GCodes Functional Limitation-Current Modifier: CI Functional Limitation-Goal Modifier: CI IRWIN ROTHMAN PT Mar 06, 2018 14:18
--- NOTE | 2018-03-06 17:33 | Progress Note (SOAP) ---
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 C/O nausea. Having increased urine output. Objective Exam Vital Signs Date Time Temp Pulse Resp B/P (MAP) Pulse Ox O2 Delivery O2 Flow Rate FiO2 03/06/18 09:00 Room Air 03/06/18 06:00 98.5 59 18 104/59 (74) 91 Room Air 03/05/18 21:00 Room Air 03/05/18 17:40 98.4 83 16 110/70 (83) 91 Room Air I & O 03/06/18 07:00 Intake Total 3050 ml Output Total 400 ml Balance 2650 ml Capillary Refill : Less Than 3 Seconds General Appearance: No Apparent Distress Neck: Supple Respiratory: Lungs Clear Cardiovascular: Regular Rate, Rhythm Gastrointestinal: normal bowel sounds, non tender, soft Extremity: Non Tender, No Calf Tenderness, No Pedal Edema Neurologic/Psychiatric: Alert, Oriented x3 Results Lab Microbiology 03/03/18 Urine Culture - Final, Complete See Comments Assessment/Plan Assessment/Plan Assess & Plan/Chief Complaint 1. Left Sacral Ala Fracture with worsening debility--admitted for PT/OT, started on miacalcin nasal spray to assist in fracture healing and pain 2. UTI--switched to Rocephin due to acute renal failure 3. Hypertension with current hypotension--BP meds on hold and monitoring BP 4. Parkinson's--sinemet resumed 5. 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 Acute Renal Failure--likely dehydration and UTI--IVFs and IV rocephin started and will monitor BUN/CR and BP in response 7. GERD/Dyspepsia--increase protonix to 40mg po BID, zofran prn Clinical Quality Measures DVT/VTE Risk/Contraindication: Risk Factor Score Per Nursin RFS Level Per Nursing on Admit: 4+=Very High NAPOLEON AKHATR DO Mar 06, 2018 17:33
[2018-03-06 17:50] VITALS: BP 117/75
[2018-03-06] MEDS: SERTRALINE 50 MG (ZOLOFT) TABLET PO SCH (20:31)
[2018-03-06] MEDS: SIMvastatin 40 MG (ZOCOR) TAB PO SCH (20:31)
[2018-03-07] MEDS: NS IV 1000 ML 1,000 ML IV SCH (01:12)
[2018-03-07 06:00] VITALS: BP 123/69
[2018-03-07 06:54] LABS: BASOPHILS % (AUTO) 0 % (0-10); EOSINOPHILS # (AUTO) 0.2 10^3/uL (0.0-0.3); EOSINOPHILS % (AUTO) 1 % (0-10); HEMATOCRIT 29 % (40-54); HEMOGLOBIN 9.4 G/DL (13.3-17.7); LYMPHOCYTES # (AUTO) 0.8 X 10^3 (1.0-4.0); LYMPHOCYTES % (AUTO) 7 % (12-44); MEAN CORPUSCULAR HEMOGLOBIN 33 PG (25-34); MEAN CORPUSCULAR HGB CONC 32 G/DL (32-36); MEAN CORPUSCULAR VOLUME 103 FL (80-99); MEAN PLATELET VOLUME 10.2 FL (7.4-10.4); MONOCYTES # (AUTO) 1.5 X 10^3 (0.0-1.0); MONOCYTES % (AUTO) 13 % (0-12); NEUTROPHILS # (AUTO) 8.9 X 10^3 (1.8-7.8); NEUTROPHILS % (AUTO) 78 % (42-75); PLATELET COUNT 183 10^3/uL (130-400); RED BLOOD COUNT 2.83 10^6/uL (4.35-5.85); RED CELL DISTRIBUTION WIDTH 15.1 % (10.0-14.5); WHITE BLOOD COUNT 11.5 10^3/uL (4.3-11.0)
[2018-03-07 07:15] LABS: CALCIUM 7.9 MG/DL (8.5-10.1); CREATININE SERUM 5.11 MG/DL (0.60-1.30); POTASSIUM 4.1 MMOL/L (3.6-5.0)
[2018-03-07] MEDS: PANTOPRAZOLE 40 MG (PROTONIX) TAB PO SCH ×2 (07:29→16:23)
[2018-03-07] MEDS: VITAMIN D3 5,000 UNITS (CHOLECALCIFEROL ) CAPSULE PO SCH (07:29)
[2018-03-07] MEDS: cefTRIAXone INJECTION 1,000 MG in NS (IVPB) 50 ML IV SCH (08:50)
[2018-03-07] MEDS: SINEMET CR 50/200 (CARBIDOPA/LEVODOPA SA) TAB PO SCH ×2 (08:51→21:05)
[2018-03-07] MEDS: CALCITONIN NASAL 200 INTLU/AC (FORTICAL) 3.7 ML BTL NS SCH (08:51)
[2018-03-07] MEDS: ASPIRIN E.C. 81 MG (ECOTRIN) TAB PO SCH (08:51)
[2018-03-07] MEDS: SILVER SULFADIAZINE 50 GM CREAM TOP SCH (08:51)
[2018-03-07] MEDS: DIVALPROEX 250 MG DELAYED RELEASE (DEPAKOTE) TAB PO SCH ×2 (08:51→21:05)
[2018-03-07] MEDS: ACETAMINOPHEN 500 MG TAB (TYLENOL) PO PRN ×2 (10:12→21:10)
--- NOTE | 2018-03-07 11:16 | Occupational Ther Daily Note ---
OT Current Status-Daily Note Subjective Pt. reports pain with movement of left hip. Does not give a pain level but does request a pain pill. OT notifies nursing. Appearance Pt. in bed. Declines ADLs but agrees to work with OT. Mental Status/Objective Patient Orientation: Person, Place, Time Functional [place] Measure 0=Not Assessed/NA 4=Minimal Assistance 1=Total Assistance 5=Supervision or Setup 2=Maximal Assistance 6=Modified [place] 3=Moderate Assistance 7=Complete [place] Attachments: IV ADL-Treatment Functional [place] Measure 0=Not Assessed/NA 4=Minimal Assistance 1=Total Assistance 5=Supervision or Setup 2=Maximal Assistance 6=Modified [place] 3=Moderate Assistance 7=Complete IndependenceIRFPAI Quality Coding Scale 6 Independent with activity with or without an assistive device 5 Patient requires set up or clean up by helper. Patient completes activity by themselves 4 Supervision or touching assist (CGA). [place] provide cues , steadying assist 3 The helper provides less than half the effort to complete the activity 2 The helper provides more than half the effort to complete the activity 1 Dependent. The helper does all the effort to complete an activity 7 Patient refused to complete or attempt activity 9 The patient did not perform the activity before the current illness or injury 88 Not attempted due to Medical conditions or safety concerns Grooming (FIM): 5 (Pt. able to brush hair with set up.) Toileting (FIM): 1 Toileting Hygiene (QC): 1 Transfers (B, C, W/C) (FIM): 3 (Min assist supine-sit. Mod assist sit-stand and pivot to wheelchair.) Toilet/Commode Transfer (FIM): 4 (With use of grab bar.) Toilet Transfer (QC): 4 Other Treatment Pt. transferred to wheelchair. Attempted to have pt. self propel to therapy gym. Pt. would attempt in small amounts, but then quit and required constant encouragement. Once in therapy gym, pt. completed fine motor coordination and strengthening tasks. Placed pegs in peg board, completed resistive clothespin task, and practiced tip pinch with placing small sample checker pieces in bowl. Pt. continually requires encouragement, as he will state he is tired and then stop whatever task he is doing. Pt. is encouraged to work on his endurance with tasks. OT propelled wheelchair back to room and assisted pt. with toileting task. All needs met in recliner in room. Education OT Patient Education: Correct positioning, Modified ADL techniques, Progress toward Goal/Update tx plan, Purpose of tx/functional activities, Reviewed precautions, Rehab process, Transfer techniques Teaching Recipient: Patient Teaching Methods: Demonstration, Discussion Response to Teaching: Verbalize Understanding, Return Demonstration OT Short Term Goals Short Term Goals Time Frame: Mar 11, 2018 Eating(FIM): 5 Grooming(FIM): 4 Bathing(FIM): 4 Upper Body Dressing(FIM): 4 Lower Body Dressing(FIM): 3 Toileting(FIM): 4 Transfers (B,C,W/C) (FIM): 5 Toilet/Commode Transfer(FIM): 5 Shower Transfer(FIM): 4 Additional Short Term Goals: 1-Demonstrate ADL Tasks, 2-Verbalize Understanding , 3-ImproveStrength/Vandana 1=Demonstrate adherence to instructed precautions during ADL tasks. 2=Patient will verbalize/demonstrate understanding of assistive devices/ modifications for ADL. 3=Patient will improve strength/tolerance for activity to enable patient to perform ADL's. OT Sql Ssrs Ssis Developer Goals [place] Goals Time Frame: Mar 18, 2018 Eating (FIM): 6 Eating (QC): 6 Groomin Oral Hygiene (QC): 5 Bathing(FIM): 4 Shower/Bathe Self (QC): 4 Upper Body Dressing(FIM): 5 Upper Body Dressing (QC): 4 Lower Body Dressing(FIM): 4 Lower Body Dressing (QC): 4 On/Off Footwear (QC): 4 Toileting(FIM): 6 Toileting Hygiene (QC): 5 Transfers (B,C,W/C) (FIM): 5 Toilet/Commode Transfer(FIM): 5 Toilet/Commode Transfer (QC): 5 Shower Transfer(FIM): 5 Additional Goals: 1-Demonstrate ADL Tasks, 2-Verbalize Understanding, 3- ImproveStrength/Vandana 1=Demonstrate adherence to instructed precautions during ADL tasks. 2=Patient will verbalize/demonstrate understanding of assistive devices/ modifications for ADL. 3=Patient will improve strength/tolerance for activity to enable patient to perform ADL's. OT Education/Plan Problem List/Assessment Assessment: Decreased Activ Tolerance, Dependent Transfers, Impaired I ADL's, Impaired Self-Care Skills Discharge Recommendations Plan/Recommendations: Continue POC Therapy D/C Recommendations: Home w/ Family Support, Scheduled Assistance Treatment Plan/Plan of Care Treatment,Training & Education: Yes Patient would benefit from OT for education, treatment and training to promote independence in ADL's, mobility, safety and/or upper extremity function for ADL' s. Plan of Care: ADL Retraining, Functional Mobility, Group Exercise/Act as Ind, UE Funct Exercise/Act Treatment Duration: Mar 18, 2018 Frequency: At least 5 of 7 days/Wk (IRF) Estimated Hrs Per Day: 1.5 hours per day Agreement: Yes Rehab Potential: Fair Time/GCodes Start Time: 09:15 Stop Time: 10:15 Total Time Billed (hr/min): 60 Billed Treatment Time 1, FA x 45minutes, ADL x 15minutes PT/OT Therapy GCodes Functional Limitation-Current Modifier: CATY Functional Limitation-Goal Modifier: CELI TAVERAS OT Mar 07, 2018 11:16
--- NOTE | 2018-03-07 11:41 | Physical Therapy Daily Note ---
PT Daily Note-Current Subjective Pt sitting in recliner leaning toward L side. Pt reports pain on L hip and asks to lay down. Nurse advises has given all pain med that can be given at this time. Pt agrees to Supine Ex with pillow under L hip for positioning. Pain Numeric Pain Scale: 4 Location: Left Location Body Site: Hip Pain Description: Ache Comment: Pt reports constant ache unless WB then its sharp/stabbing, pt vocalizes. Mental Status Patient Orientation: Person, Place, Situation Transfers Functional [place] Measure 0=Not Assessed/NA 4=Minimal Assistance 1=Total Assistance 5=Supervision or Setup 2=Maximal Assistance 6=Modified [place] 3=Moderate Assistance 7=Complete IndependenceIRFPAI Quality Coding Scale 6 Independent with activity with or without an assistive device 5 Patient requires set up or clean up by helper. Patient completes activity by themselves 4 Supervision or touching assist (CGA). [place] provide cues , steadying assist 3 The helper provides less than half the effort to complete the activity 2 The helper provides more than half the effort to complete the activity 1 Dependent. The helper does all the effort to complete an activity 7 Patient refused to complete or attempt activity 9 The patient did not perform the activity before the current illness or injury 88 Not attempted due to Medical conditions or safety concerns Scootin Rollin Roll Left to Right (QC): 4 Supine to/from Sit: 4 Sit to/from Stand: 4 Sit to Lying (QC): 4 Sit to Stand (QC): 4 Weight Bearing Right Lower Extremity: Right Full Weight Bearing Left Lower Extremity: Left Full Weight Bearing Exercises Supine Ex: Ankle pumps, Quad Set, Heel Slides, Straight leg raise Supine Reps: 20 Treatments Pt advises pain in L hip and asks to lay back in bed to reposition so assist for decrease in pain. Nurse was notified & can not give any more pain med at this time. Pt transfers to Supine with pillow under L hip to relieve pain. Pt completes Supine EX with several rest breaks. Pt resting at end of tx with all needs met, including call light in hand. Assessment Current Status: Fair Progress Pt fatigues easily, needing rest breaks. Pt also needs VC to redirect to stay on task. Pt is also having difficulty to controlling pain. Pt's reaction to pain & pain rating do not seem to match as well. PT Short Term Goals Short Term Goals Transfers (B,C,W/C) (FIM): 5 PT Residential Goals Supervisor Alteration Workroom Goals PT Residential Goals Time Frame: Mar 21, 2018 Transfers (B,C,W/C) (FIM): 6 Sit to Lying (QC): 6 Lying-Sitting on Side/Bed(QC): 6 Sit to Stand (QC): 6 Rollin Roll Left to Right (QC): 6 Chair/Swq-my-Ayfyo Xfer(QC): 6 Car Transfer (QC): 6 Does the Patient Walk: Yes Gait (FIM): 2 Gait distance (FIM): 7=479-91 ft Distance: 125' Walk 10 feet (QC): 5 Walk 10ft-Uneven Surface(QC): 5 Walk 50ft with 2 Turns (QC): 5 Walk 150 ft (QC): 9 Gait Level of Assist: 5 Gait Assistive Device: FWW Does the Pt use WC or Scooter?: Yes Wheelchair (FIM): 5 Wheelchair distance (FIM): 3=150 ft Distance: 150' Wheelchair Level of Assist: 5 Wheel 50 feet with 2 turns (QC: 5 Stairs (FIM): 2 # of Steps: 4 1 Step (curb) (QC): 5 4 Steps (QC): 5 12 Steps (QC): 9 Stairs Level Of Assist: 5 Picking up an Object (QC): 5 PT Plan Problem List Problem List: Activity Tolerance, Functional Strength, Safety, Balance, Gait, Transfer, Bed Mobility Treatment/Plan Treatment Plan: Continue Plan of Care Treatment Plan: Bed Mobility, Concurrent Therapy, Education, Functional Activity Vandana, Functional Strength, Group Therapy, Gait, Safety, Therapeutic Exercise, Transfers Treatment Duration: Mar 21, 2018 Frequency: At least 5 of 7 days/Wk (IRF) Estimated Hrs Per Day: 1.5 hours per day Patient and/or Family Agrees t: Yes Safety Risks/Education Patient Education: Transfer Techniques, Correct Positioning, Safety Issues Teaching Recipient: Patient Teaching Methods: Discussion Response to Teaching: Verbalize Understanding Time/GCodes Time In: 1100 Time Out: 1200 Total Billed Treatment Time: 60 Total Billed Treatment 1, EX x2 (30m) & FA X2 (30m) G Codes Necessary: No PT/OT Therapy GCodes Functional Limitation-Current Modifier: CI Functional Limitation-Goal Modifier: CI RASHEEDA PEREZ GROUP BILLING COORDINATOR Mar 07, 2018 11:41
--- NOTE | 2018-03-07 14:02 | Progress Note (SOAP) ---
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 Incontinent per nursing. Reports he was having difficulty urinating prior to admission. Objective Exam Vital Signs Date Time Temp Pulse Resp B/P (MAP) Pulse Ox O2 Delivery O2 Flow Rate FiO2 03/07/18 09:16 Room Air 03/07/18 06:00 98.4 84 16 123/69 (87) 93 Room Air 03/06/18 21:00 Room Air 03/06/18 17:50 97.5 92 16 117/75 (89) 92 Room Air I & O 03/07/18 07:00 Intake Total 3860 ml Balance 3860 ml Capillary Refill : Less Than 3 Seconds General Appearance: No Apparent Distress Neck: Supple Respiratory: Lungs Clear Cardiovascular: Regular Rate, Rhythm Gastrointestinal: normal bowel sounds, non tender, soft Extremity: Non Tender, No Calf Tenderness, No Pedal Edema Neurologic/Psychiatric: Alert, Oriented x3 Skin: Warm/Dry Results Lab Laboratory Tests 03/07/18 06:44: White Blood Count 11.5H, Red Blood Count 2.83L, Hemoglobin 9.4L, Hematocrit 29L , Mean Corpuscular Volume 103H, Mean Corpuscular Hemoglobin 33, Mean Corpuscular Hemoglobin Concent 32, Red Cell Distribution Width 15.1H, Platelet Count 183, Mean Platelet Volume 10.2, Neutrophils (%) (Auto) 78H, Lymphocytes (% ) (Auto) 7L, Monocytes (%) (Auto) 13H, Eosinophils (%) (Auto) 1, Basophils (%) ( Auto) 0, Neutrophils # (Auto) 8.9H, Lymphocytes # (Auto) 0.8L, Monocytes # (Auto ) 1.5H, Eosinophils # (Auto) 0.2, Basophils # (Auto) 0.0, Sodium Level 140, Potassium Level 4.1, Chloride Level 111H, Carbon Dioxide Level 19L, Anion Gap 10 , Blood Urea Nitrogen 60H, Creatinine 5.11#H, Estimat Glomerular Filtration Rate 11, BUN/Creatinine Ratio 12, Glucose Level 114H, Calcium Level 7.9L Microbiology 03/03/18 Urine Culture - Final, Complete See Comments Assessment/Plan Assessment/Plan Assess & Plan/Chief Complaint 1. Left Sacral Ala Fracture with worsening debility--admitted for PT/OT, started on miacalcin nasal spray to assist in fracture healing and pain 2. UTI--switched to Rocephin due to acute renal failure 3. Hypertension with current hypotension--BP meds on hold and monitoring BP 4. Parkinson's--sinemet resumed 5. 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 Acute Renal Failure--did not respond to IV rehydration so likely post- obstructive, will check renal US and bladder scan with postvoid residual and consult urology 7. GERD/Dyspepsia--increased protonix to 40mg po BID and has zofran prn Clinical Quality Measures DVT/VTE Risk/Contraindication: Risk Factor Score Per Nursin RFS Level Per Nursing on Admit: 4+=Very High NAPOLEON AKHTAR DO Mar 07, 2018 14:02
--- NOTE | 2018-03-07 15:01 | Therapy Group Daily Note ---
Therapy Daily Group Note Patient Education Topic Other List Below (Memory & Memory Strategies) Exercises LE Seated Exercise, UE Exercise Other/Notes Pt ambulates to Group using FWW at [facility]. Pt participated in PT/OT Group which consisted of Introductions (Name, Where you are from, Favorite childhood memory) , Socialization, Memory Strategies, Memory Activity and Seated UE/LE Ex. Pt actively participated in Group by giving personal examples of memory strategies used, participating in Memory Activity & completing Seated Ex. Pt interrupted discussion and redirecting several times. Pt returns to room at the end of Group to rest with all needs met, including call light & phone. Start Time: 13:00 Stop Time: 14:05 Total Billed Treatment Time: 65 Total Billed Treatment 1, GRP RASHEEDA PEREZ ASSOCIATE SOFTWARE ENGINEER Mar 07, 2018 15:01
[2018-03-07] MEDS ORDERED: LIDOCAINE UROJET 2% GEL 10 ML PKG TOP ONE (15:15)
[2018-03-07] MEDS: BETHANECHOL 10 MG (URECHOLINE) TAB PO SCH ×2 (16:23→21:05)
--- NOTE | 2018-03-07 16:39 | Diagnostic Imaging Report ---
PROCEDURE: US renal, bilateral. TECHNIQUE: Multiple real-time grayscale images were obtained over the kidneys in various projections, bilaterally. INDICATION: Acute renal failure. FINDINGS: Right kidney 10.9, left 11.1 cm. No solid or cystic renal mass. No hydronephrosis. No echogenic or shadowing stone. The urinary bladder appears normal. There is no pelvic ascites. IMPRESSION: Normal sonographic appearance of the unobstructed kidneys and urinary bladder. Dictated by: Dictated on workstation # [id number]
[2018-03-07 17:29] VITALS: BP 136/77
[2018-03-07] MEDS: SIMvastatin 40 MG (ZOCOR) TAB PO SCH (21:05)
[2018-03-07] MEDS: SERTRALINE 50 MG (ZOLOFT) TABLET PO SCH (21:05)
[2018-03-08] MEDS: ACETAMINOPHEN 500 MG TAB (TYLENOL) PO PRN ×2 (03:31→08:19)
[2018-03-08 05:07] VITALS: BP 154/81
[2018-03-08] MEDS: BETHANECHOL 10 MG (URECHOLINE) TAB PO SCH ×4 (06:01→20:52)
[2018-03-08] MEDS: VITAMIN D3 5,000 UNITS (CHOLECALCIFEROL ) CAPSULE PO SCH (06:01)
[2018-03-08] MEDS: PANTOPRAZOLE 40 MG (PROTONIX) TAB PO SCH ×2 (06:01→16:41)
[2018-03-08 06:19] LABS: BASOPHILS % (AUTO) 0 % (0-10); EOSINOPHILS # (AUTO) 0.2 10^3/uL (0.0-0.3); EOSINOPHILS % (AUTO) 2 % (0-10); HEMATOCRIT 30 % (40-54); HEMOGLOBIN 10.3 G/DL (13.3-17.7); LYMPHOCYTES % (AUTO) 12 % (12-44); MEAN CORPUSCULAR HEMOGLOBIN 35 PG (25-34); MEAN CORPUSCULAR HGB CONC 34 G/DL (32-36); MEAN CORPUSCULAR VOLUME 102 FL (80-99); MEAN PLATELET VOLUME 9.7 FL (7.4-10.4); MONOCYTES % (AUTO) 12 % (0-12); NEUTROPHILS # (AUTO) 6.2 X 10^3 (1.8-7.8); NEUTROPHILS % (AUTO) 73 % (42-75); PLATELET COUNT 201 10^3/uL (130-400); RED BLOOD COUNT 2.96 10^6/uL (4.35-5.85); RED CELL DISTRIBUTION WIDTH 14.9 % (10.0-14.5); WHITE BLOOD COUNT 8.5 10^3/uL (4.3-11.0)
[2018-03-08 06:37] LABS: CALCIUM 8.5 MG/DL (8.5-10.1); CREATININE SERUM 1.3 MG/DL (0.60-1.30); POTASSIUM 4.2 MMOL/L (3.6-5.0)
[2018-03-08] MEDS: DIVALPROEX 250 MG DELAYED RELEASE (DEPAKOTE) TAB PO SCH ×2 (08:19→20:53)
[2018-03-08] MEDS: cefTRIAXone INJECTION 1,000 MG in NS (IVPB) 50 ML IV SCH (08:19)
[2018-03-08] MEDS: ASPIRIN E.C. 81 MG (ECOTRIN) TAB PO SCH (08:19)
[2018-03-08] MEDS: SINEMET CR 50/200 (CARBIDOPA/LEVODOPA SA) TAB PO SCH ×2 (08:19→20:52)
[2018-03-08] MEDS: SILVER SULFADIAZINE 50 GM CREAM TOP SCH (08:24)
[2018-03-08] MEDS: CALCITONIN NASAL 200 INTLU/AC (FORTICAL) 3.7 ML BTL NS SCH (08:25)
--- NOTE | 2018-03-08 09:39 | Occupational Ther Daily Note ---
OT Current Status-Daily Note Subjective Pt. reports pain in hip with movement. Does not report a pain level. Nursing gives pt. pain medicine. Appearance Pt. in bed. Agrees to work with OT. Mental Status/Objective Patient Orientation: Person Functional [place] Measure 0=Not Assessed/NA 4=Minimal Assistance 1=Total Assistance 5=Supervision or Setup 2=Maximal Assistance 6=Modified [place] 3=Moderate Assistance 7=Complete [place] Attachments: Mclaughlin Catheter, IV ADL-Treatment Functional [place] Measure 0=Not Assessed/NA 4=Minimal Assistance 1=Total Assistance 5=Supervision or Setup 2=Maximal Assistance 6=Modified [place] 3=Moderate Assistance 7=Complete IndependenceIRFPAI Quality Coding Scale 6 Independent with activity with or without an assistive device 5 Patient requires set up or clean up by helper. Patient completes activity by themselves 4 Supervision or touching assist (CGA). [place] provide cues , steadying assist 3 The helper provides less than half the effort to complete the activity 2 The helper provides more than half the effort to complete the activity 1 Dependent. The helper does all the effort to complete an activity 7 Patient refused to complete or attempt activity 9 The patient did not perform the activity before the current illness or injury 88 Not attempted due to Medical conditions or safety concerns Grooming (FIM): 3 (Pt. is able to brush hair but requires max assist to shave face. Pt. states that he was shaving face on his own, but will only take a couple of swipes, and then stop. OT does this for him to best of ability. Pt. also places dentures in, but requires assist to handle them and to place fixodent in them.) Oral Hygiene (QC): 2 Bathing (FIM): 2 (Pt. requires max cues to do for self. Pt. will take swipes at self but does not do thoroughly. OT does this for him. Requires assist to wash bill area, feet, and under arms thoroughly.) Shower/Bathe Self (QC): 2 Upper Body (FIM): 2 (Max assist to doff/don shirt due to IV.) Upper Body Dressing (QC): 2 Lower Body Dressing (FIM): 2 Lower Body Dressing (QC): 2 On/Off Footwear (QC): 2 Toileting (FIM): 1 (Pt. has a catheter.) Toileting Hygiene (QC): 1 Transfers (B, C, W/C) (FIM): 4 Shower Transfer(FIM): 4 Other Treatment Pt. went to dining area after treatment. Tolerated UE shoulder ROM exercises with arm arc, and fine motor strengthening with small clothespin activity. Pt. requires constant cues to sequence, and to do for self. Pt. is easily distracted, and not motivated to complete tasks on his own. Pt. requested hot chocolate. OT made this for him, but due to tremors, pt. had difficulty bringing to mouth. OT provided a spoon and pt. able to use spoon to bring liquid to mouth. Education OT Patient Education: Correct positioning, Modified ADL techniques, Progress toward Goal/Update tx plan, Purpose of tx/functional activities, Reviewed precautions, Rehab process, Transfer techniques Teaching Recipient: Patient Teaching Methods: Demonstration, Discussion Response to Teaching: Verbalize Understanding, Return Demonstration OT Short Term Goals Short Term Goals Time Frame: Mar 11, 2018 Eating(FIM): 5 Grooming(FIM): 4 Bathing(FIM): 4 Upper Body Dressing(FIM): 4 Lower Body Dressing(FIM): 3 Toileting(FIM): 4 Transfers (B,C,W/C) (FIM): 5 Toilet/Commode Transfer(FIM): 5 Shower Transfer(FIM): 4 Additional Short Term Goals: 1-Demonstrate ADL Tasks, 2-Verbalize Understanding , 3-ImproveStrength/Vandana 1=Demonstrate adherence to instructed precautions during ADL tasks. 2=Patient will verbalize/demonstrate understanding of assistive devices/ modifications for ADL. 3=Patient will improve strength/tolerance for activity to enable patient to perform ADL's. OT Manufacturing Leader Goals Longterm Goals Time Frame: Mar 18, 2018 Eating (FIM): 6 Eating (QC): 6 Groomin Oral Hygiene (QC): 5 Bathing(FIM): 4 Shower/Bathe Self (QC): 4 Upper Body Dressing(FIM): 5 Upper Body Dressing (QC): 4 Lower Body Dressing(FIM): 4 Lower Body Dressing (QC): 4 On/Off Footwear (QC): 4 Toileting(FIM): 6 Toileting Hygiene (QC): 5 Transfers (B,C,W/C) (FIM): 5 Toilet/Commode Transfer(FIM): 5 Toilet/Commode Transfer (QC): 5 Shower Transfer(FIM): 5 Additional Goals: 1-Demonstrate ADL Tasks, 2-Verbalize Understanding, 3- ImproveStrength/Vandana 1=Demonstrate adherence to instructed precautions during ADL tasks. 2=Patient will verbalize/demonstrate understanding of assistive devices/ modifications for ADL. 3=Patient will improve strength/tolerance for activity to enable patient to perform ADL's. OT Education/Plan Problem List/Assessment Assessment: Decreased Activ Tolerance, Decreased UE Strength, Dependent Transfers, Impaired Bed Mobility, Impaired Cognition, Impaired Coordination, Impaired Funct Balance, Impaired I ADL's, Impaired Self-Care Skills, Restricted Funct UE ROM Discharge Recommendations Plan/Recommendations: Continue POC Therapy D/C Recommendations: Home w/ Family Support, Scheduled Assistance Treatment Plan/Plan of Care Treatment,Training & Education: Yes Patient would benefit from OT for education, treatment and training to promote independence in ADL's, mobility, safety and/or upper extremity function for ADL' s. Plan of Care: ADL Retraining, Functional Mobility, Group Exercise/Act as Ind, UE Funct Exercise/Act Treatment Duration: Mar 18, 2018 Frequency: At least 5 of 7 days/Wk (IRF) Estimated Hrs Per Day: 1.5 hours per day Agreement: Yes Rehab Potential: Fair Time/GCodes Start Time: 07:55 Stop Time: 09:25 Total Time Billed (hr/min): 90 Billed Treatment Time 1, ADL x 60minutes, FA x 30minutes PT/OT Therapy GCodes Functional Limitation-Current Modifier: CI Functional Limitation-Goal Modifier: CELI TAVERAS OT Mar 08, 2018 09:39
--- NOTE | 2018-03-08 11:00 | Physical Therapy Daily Note ---
PT Daily Note-Current Subjective Patient in wheelchair pre tx, agrees to PT, has pain of 5/10 in right hip and bottom. Appearance Patient BTB post tx with nurse call, phone, tray, all needs met. Mental Status Patient Orientation: Person, Place, Situation Attachments: Mclaughlin Catheter Transfers Functional [place] Measure 0=Not Assessed/NA 4=Minimal Assistance 1=Total Assistance 5=Supervision or Setup 2=Maximal Assistance 6=Modified [place] 3=Moderate Assistance 7=Complete IndependenceIRFPAI Quality Coding Scale 6 Independent with activity with or without an assistive device 5 Patient requires set up or clean up by helper. Patient completes activity by themselves 4 Supervision or touching assist (CGA). [place] provide cues , steadying assist 3 The helper provides less than half the effort to complete the activity 2 The helper provides more than half the effort to complete the activity 1 Dependent. The helper does all the effort to complete an activity 7 Patient refused to complete or attempt activity 9 The patient did not perform the activity before the current illness or injury 88 Not attempted due to Medical conditions or safety concerns Transfers (B, C, W/C) (FIM): 3 Scootin Rollin Supine to/from Sit: 3 Sit to/from Stand: 4 Bed to/from Chair: 4 Patient is mod assist for sit to supine because he needs assist with both legs. Occasional cues for hand placement and safety during transfers. Weight Bearing Right Lower Extremity: Right Full Weight Bearing Left Lower Extremity: Left Full Weight Bearing Gait Training Gait (FIM): 2 Distance: 50'x3 Gait Level of Assist: 4 Gait Persons Needed: 1 Gait Assistive Device: FWW Antalgic ambulation, very slow. Wheelchair Training Wheelchair (FIM): 5 Distance: 150', 50' Wheelchair Level of Assist: 5 Type of Wheelchair: Manual Patient propels a few feet at a time before needing a rest break. Very slow. Exercises Standing: Hip Abduction, Heel/toe raises, Marching, Mini squats Standing Reps: 15 LAQ alternating for 5 min NuStep Minutes: 20 NuStep Workload: 4 Treatments bed mobility and transfers, ambulation, wheelchair mobility, functional strengthening Assessment Current Status: Fair Progress Patient performs exercises and mobility extremely slowly and fatigues very easily. He needs very frequent rest breaks. Poor motivation. PT Short Term Goals Short Term Goals Transfers (B,C,W/C) (FIM): 5 PT Clothes Designer Goals Correction Goals PT Correction Goals Time Frame: Mar 21, 2018 Transfers (B,C,W/C) (FIM): 6 Sit to Lying (QC): 6 Lying-Sitting on Side/Bed(QC): 6 Sit to Stand (QC): 6 Rollin Roll Left to Right (QC): 6 Chair/Zsb-il-Dbrvx Xfer(QC): 6 Car Transfer (QC): 6 Does the Patient Walk: Yes Gait (FIM): 2 Gait distance (FIM): 9=224-54 ft Distance: 125' Walk 10 feet (QC): 5 Walk 10ft-Uneven Surface(QC): 5 Walk 50ft with 2 Turns (QC): 5 Walk 150 ft (QC): 9 Gait Level of Assist: 5 Gait Assistive Device: FWW Does the Pt use WC or Scooter?: Yes Wheelchair (FIM): 5 Wheelchair distance (FIM): 3=150 ft Distance: 150' Wheelchair Level of Assist: 5 Wheel 50 feet with 2 turns (QC: 5 Stairs (FIM): 2 # of Steps: 4 1 Step (curb) (QC): 5 4 Steps (QC): 5 12 Steps (QC): 9 Stairs Level Of Assist: 5 Picking up an Object (QC): 5 PT Plan Problem List Problem List: Activity Tolerance, Functional Strength, Safety, Balance, Gait, Transfer, Bed Mobility, ROM Treatment/Plan Treatment Plan: Continue Plan of Care Treatment Plan: Bed Mobility, Concurrent Therapy, Education, Functional Activity Vandana, Functional Strength, Group Therapy, Gait, Safety, Therapeutic Exercise, Transfers Treatment Duration: Mar 21, 2018 Frequency: At least 5 of 7 days/Wk (IRF) Estimated Hrs Per Day: 1.5 hours per day Patient and/or Family Agrees t: Yes Safety Risks/Education Patient Education: Gait Training, Transfer Techniques, Correct Positioning, W/ C Management, Safety Issues Teaching Recipient: Patient Teaching Methods: Demonstration, Discussion Response to Teaching: Reinforcement Needed Time/GCodes Time In: 1025 Time Out: 1155 Total Billed Treatment Time: 90 Total Billed Treatment 1 visit GT 30' EX 30' WCH 30' PT/OT Therapy GCodes Functional Limitation-Current Modifier: CI Functional Limitation-Goal Modifier: CI KYMBERLY TAVERA PT Mar 08, 2018 10:59
--- NOTE | 2018-03-08 13:18 | Progress Note-Hospitalist ---
Subjective HPI/CC On Admission Date Seen by Provider: Mar 08, 2018 Time Seen by Provider: 13:15 Subjective/Events-last exam Patient is doing much better Pain is better Chase catheter maintained due to significant obstructive uropathy requiring urology consultation Acute renal failure resolved with creatinine 1.3 today Urine culture reviewed will continue antibiotics due to retention acute issue Review of Systems General: Malaise Objective Exam Vital Signs Vital Signs Date Time Temp Pulse Resp B/P (MAP) Pulse Ox O2 Delivery O2 Flow Rate FiO2 03/08/18 09:00 Room Air 03/08/18 05:07 98.1 94 18 154/81 (105) 94 Capillary Refill : Less Than 3 Seconds General Appearance: No Apparent Distress, WD/WN, Chronically ill Respiratory: Lungs Clear, Normal Breath Sounds Cardiovascular: Regular Rate, Rhythm, No Edema Neurologic/Psychiatric: Alert, Oriented x3, Normal Mood/Affect, Motor Weakness Results/Procedures Lab Laboratory Tests 03/08/18 06:04 Patient resulted labs reviewed. Assessment/Plan Assessment and Plan Assess & Plan/Chief Complaint Per Dr Sneed: Assess & Plan/Chief Complaint 1. Left Sacral Ala Fracture with worsening debility--admitted for PT/OT, started on miacalcin nasal spray to assist in fracture healing and pain 2. UTI--switched to Rocephin due to acute renal failure and UCx reveals normal salma 70k but due to retention will continue the abx until Saturday 3. Hypertension with current hypotension--BP meds on hold and monitoring BP 4. Parkinson's--sinemet resumed 5. 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 Acute Renal Failure--resolved after chase catheter placed confirming post- obstructive uropathy 7. GERD/Dyspepsia--increased protonix to 40mg po BID and has zofran prn Diagnosis/Problems Diagnosis/Problems (1) Renal failure, acute Status: Resolved Qualifiers: Acute renal failure type: with other specified pathological lesion Qualified Codes: N17.8 - Other acute kidney failure (2) Urinary retention Status: Resolved Assessment & Plan: Maintain catheter (3) Chase catheter in place Status: Acute Assessment & Plan: Maintain catheter (4) Sacral fracture Status: Acute (5) Status post fall Status: Acute (6) Parkinson disease Status: Chronic (7) History of CVA with residual deficit Status: Chronic Clinical Quality Measures DVT/VTE Risk/Contraindication: Risk Factor Score Per Nursin RFS Level Per Nursing on Admit: 4+=Very High NICK BAIG DO Mar 08, 2018 13:18
[2018-03-08 17:25] VITALS: BP 156/72
[2018-03-08] MEDS: SIMvastatin 40 MG (ZOCOR) TAB PO SCH (20:52)
[2018-03-08] MEDS: SERTRALINE 50 MG (ZOLOFT) TABLET PO SCH (20:53)
[2018-03-09 05:02] VITALS: BP 149/84
[2018-03-09] MEDS: VITAMIN D3 5,000 UNITS (CHOLECALCIFEROL ) CAPSULE PO SCH (05:32)
[2018-03-09] MEDS: BETHANECHOL 10 MG (URECHOLINE) TAB PO SCH ×4 (05:32→20:48)
[2018-03-09] MEDS: PANTOPRAZOLE 40 MG (PROTONIX) TAB PO SCH ×2 (05:32→17:22)
[2018-03-09] MEDS: ACETAMINOPHEN 500 MG TAB (TYLENOL) PO PRN ×3 (05:35→20:50)
[2018-03-09] MEDS: SINEMET CR 50/200 (CARBIDOPA/LEVODOPA SA) TAB PO SCH ×2 (08:41→20:48)
[2018-03-09] MEDS: DIVALPROEX 250 MG DELAYED RELEASE (DEPAKOTE) TAB PO SCH ×2 (08:41→20:48)
[2018-03-09] MEDS: cefTRIAXone INJECTION 1,000 MG in NS (IVPB) 50 ML IV SCH (08:41)
[2018-03-09] MEDS: ASPIRIN E.C. 81 MG (ECOTRIN) TAB PO SCH (08:42)
[2018-03-09] MEDS: CALCITONIN NASAL 200 INTLU/AC (FORTICAL) 3.7 ML BTL NS SCH (08:42)
[2018-03-09] MEDS: SILVER SULFADIAZINE 50 GM CREAM TOP SCH (08:43)
--- NOTE | 2018-03-09 11:53 | CONSULTATION REPORT ---
DATE OF SERVICE: 03/09/2018 ATTENDING PHYSICIAN: Dr. Sneed. SUMMARY: An 82-year-old white man, who was found to have renal failure with increasing BUN and creatinine. Dr. Sneed called me and I had the nursing staff do a bladder postvoid residual scan, that was over 900 mL. I instructed them to put a coude catheter, they put a 14-Armenian coude easily with no problem and drained over a liter of urine. Since then, his BUN and creatinine has improved down to normal value for his age. The patient apparently had a TURP a long time ago by Dr. Johnson, was doing well until over the last year to two, started having symptoms and problem passing urine. His renal ultrasound was negative. No hydronephrosis. His physical exam was deferred at the time of cystoscopy. IMPRESSION: Urinary retention with post-renal azotemia, resolved, BPH and/or neurogenic bladder. PLAN: Sometime this coming week, we will do a flexible cystoscopy at bedside under local. I will examine him at that time. This was fully explained to the patient. Job ID: [id number] DocumentID: [id number] Dictated Date: 03/09/2018 10:57:04 Advanced Clinical Specialist Date: 03/09/2018 11:53:02 Dictated By: UMER BAUTISTA MD
[2018-03-09 18:00] VITALS: BP 151/79
[2018-03-09] MEDS: SERTRALINE 50 MG (ZOLOFT) TABLET PO SCH (20:48)
[2018-03-09] MEDS: SIMvastatin 40 MG (ZOCOR) TAB PO SCH (20:48)
[2018-03-10] MEDS: VITAMIN D3 5,000 UNITS (CHOLECALCIFEROL ) CAPSULE PO SCH (06:01)
[2018-03-10] MEDS: PANTOPRAZOLE 40 MG (PROTONIX) TAB PO SCH ×2 (06:01→16:29)
[2018-03-10] MEDS: ACETAMINOPHEN 500 MG TAB (TYLENOL) PO PRN ×2 (06:02→20:11)
[2018-03-10] MEDS: BETHANECHOL 10 MG (URECHOLINE) TAB PO SCH ×4 (06:02→20:07)
[2018-03-10 06:10] VITALS: BP 137/81
[2018-03-10] MEDS: ASPIRIN E.C. 81 MG (ECOTRIN) TAB PO SCH (09:31)
[2018-03-10] MEDS: cefTRIAXone INJECTION 1,000 MG in NS (IVPB) 50 ML IV SCH (09:31)
[2018-03-10] MEDS: DIVALPROEX 250 MG DELAYED RELEASE (DEPAKOTE) TAB PO SCH ×2 (09:31→20:06)
[2018-03-10] MEDS: SINEMET CR 50/200 (CARBIDOPA/LEVODOPA SA) TAB PO SCH ×2 (09:31→20:06)
[2018-03-10] MEDS: SILVER SULFADIAZINE 50 GM CREAM TOP SCH (09:32)
[2018-03-10] MEDS: CALCITONIN NASAL 200 INTLU/AC (FORTICAL) 3.7 ML BTL NS SCH (09:32)
--- NOTE | 2018-03-10 10:41 | Occupational Ther Daily Note ---
OT Current Status-Daily Note Subjective No pain reported. However, pt. states that he feels dizzy and nauseated. Nursing aware. OT took BP. BP at 129/79. Appearance Pt. in bed. Declines showering. Agrees to get up with OT however. Mental Status/Objective Patient Orientation: Person, Place Functional [place] Measure 0=Not Assessed/NA 4=Minimal Assistance 1=Total Assistance 5=Supervision or Setup 2=Maximal Assistance 6=Modified [place] 3=Moderate Assistance 7=Complete [place] Attachments: IV ADL-Treatment Functional [place] Measure 0=Not Assessed/NA 4=Minimal Assistance 1=Total Assistance 5=Supervision or Setup 2=Maximal Assistance 6=Modified [place] 3=Moderate Assistance 7=Complete IndependenceIRFPAI Quality Coding Scale 6 Independent with activity with or without an assistive device 5 Patient requires set up or clean up by helper. Patient completes activity by themselves 4 Supervision or touching assist (CGA). [place] provide cues , steadying assist 3 The helper provides less than half the effort to complete the activity 2 The helper provides more than half the effort to complete the activity 1 Dependent. The helper does all the effort to complete an activity 7 Patient refused to complete or attempt activity 9 The patient did not perform the activity before the current illness or injury 88 Not attempted due to Medical conditions or safety concerns Grooming (FIM): 3 (Once pt. is up in wheelchair, he is taken to sink. Pt. is given brush but just sits there. OT has to brush his hair. Pt. lays head down on sink and OT has to prompt him to continue tasks. OT puts fixodent on dentures. Pt. puts them in his mouth but requires cues to fixate them to roof of mouth. Pt. states that these make him nauseated and so he removes them and puts them in cup.) Upper Body (FIM): 2 (OT assisted pt with doffing shirt, as it is long sleeve and pt. has IV in arm. Requested to don hospital gown.) Upper Body Dressing (QC): 2 Lower Body Dressing (FIM): 1 (Dependent to don socks.) Lower Body Dressing (QC): 1 On/Off Footwear (QC): 1 Transfers (B, C, W/C) (FIM): 3 (Mod assist supine-sit and transfer to wheelchair.) Other Treatment After ADLs in room, pt. was taken to therapy gym. Pt. not very motivated. Pt. given peg activity to work on hand strength and endurance. However, pt. would only do a few and then required cues and encouragement to continue on. With increased time, pt. able to finish the board. After this task, pt. went back to room via wheelchair and transferred back to chair with mod assist. All needs met up in chair. Education OT Patient Education: Correct positioning, Modified ADL techniques, Progress toward Goal/Update tx plan, Purpose of tx/functional activities, Reviewed precautions, Rehab process, Transfer techniques Teaching Recipient: Patient Teaching Methods: Demonstration, Discussion Response to Teaching: Verbalize Understanding, Return Demonstration OT Short Term Goals Short Term Goals Time Frame: Mar 11, 2018 Eating(FIM): 5 Grooming(FIM): 4 Bathing(FIM): 4 Upper Body Dressing(FIM): 4 Lower Body Dressing(FIM): 3 Toileting(FIM): 4 Transfers (B,C,W/C) (FIM): 5 Toilet/Commode Transfer(FIM): 5 Shower Transfer(FIM): 4 Additional Short Term Goals: 1-Demonstrate ADL Tasks, 2-Verbalize Understanding , 3-ImproveStrength/Vandana 1=Demonstrate adherence to instructed precautions during ADL tasks. 2=Patient will verbalize/demonstrate understanding of assistive devices/ modifications for ADL. 3=Patient will improve strength/tolerance for activity to enable patient to perform ADL's. OT Warehouse Delivery Driver Goals Warehouse Delivery Driver Goals Time Frame: Mar 18, 2018 Eating (FIM): 6 Eating (QC): 6 Groomin Oral Hygiene (QC): 5 Bathing(FIM): 4 Shower/Bathe Self (QC): 4 Upper Body Dressing(FIM): 5 Upper Body Dressing (QC): 4 Lower Body Dressing(FIM): 4 Lower Body Dressing (QC): 4 On/Off Footwear (QC): 4 Toileting(FIM): 6 Toileting Hygiene (QC): 5 Transfers (B,C,W/C) (FIM): 5 Toilet/Commode Transfer(FIM): 5 Toilet/Commode Transfer (QC): 5 Shower Transfer(FIM): 5 Additional Goals: 1-Demonstrate ADL Tasks, 2-Verbalize Understanding, 3- ImproveStrength/Vandana 1=Demonstrate adherence to instructed precautions during ADL tasks. 2=Patient will verbalize/demonstrate understanding of assistive devices/ modifications for ADL. 3=Patient will improve strength/tolerance for activity to enable patient to perform ADL's. OT Education/Plan Problem List/Assessment Assessment: Decreased UE Strength, Dependent Transfers, Impaired Bed Mobility, Impaired Funct Balance, Impaired I ADL's, Impaired Self-Care Skills, Restricted Funct UE ROM Discharge Recommendations Plan/Recommendations: Continue POC Therapy D/C Recommendations: Home w/ Family Support, Scheduled Assistance Treatment Plan/Plan of Care Treatment,Training & Education: Yes Patient would benefit from OT for education, treatment and training to promote independence in ADL's, mobility, safety and/or upper extremity function for ADL' s. Plan of Care: ADL Retraining, Functional Mobility, Group Exercise/Act as Ind, UE Funct Exercise/Act Treatment Duration: Mar 18, 2018 Frequency: At least 5 of 7 days/Wk (IRF) Estimated Hrs Per Day: 1.5 hours per day Agreement: Yes Rehab Potential: Fair Time/GCodes Start Time: 08:30 Stop Time: 09:30 Total Time Billed (hr/min): 60 Billed Treatment Time 1, ADL x 30minutes, FA x 30minutes PT/OT Therapy GCodes Functional Limitation-Current Modifier: CI Functional Limitation-Goal Modifier: CELI TAVERAS OT Mar 10, 2018 10:40
--- NOTE | 2018-03-10 10:58 | Progress Note-Urology ---
Progress Note-Urology Progress Notes/Assess & Plan Progress/Assessment & Plan PLAN CYSTOSCOPY TOMORROW ( BEDSIDE, FLEXIBLE, LOCAL ) Final Diagnosis RETENTION UMER BAUTISTA MD Mar 10, 2018 10:58 am
--- NOTE | 2018-03-10 11:00 | Physical Therapy Daily Note ---
PT Daily Note-Current Subjective Patient in recliner pre tx, reluctantly agrees to PT after encouragement, has pain of 9/10 in bottom and hip. Appearance Patient in recliner post tx with nurse call, phone, tray, all needs met. Mental Status Patient Orientation: Person, Place, Situation Attachments: IV Transfers Functional [place] Measure 0=Not Assessed/NA 4=Minimal Assistance 1=Total Assistance 5=Supervision or Setup 2=Maximal Assistance 6=Modified [place] 3=Moderate Assistance 7=Complete IndependenceIRFPAI Quality Coding Scale 6 Independent with activity with or without an assistive device 5 Patient requires set up or clean up by helper. Patient completes activity by themselves 4 Supervision or touching assist (CGA). [place] provide cues , steadying assist 3 The helper provides less than half the effort to complete the activity 2 The helper provides more than half the effort to complete the activity 1 Dependent. The helper does all the effort to complete an activity 7 Patient refused to complete or attempt activity 9 The patient did not perform the activity before the current illness or injury 88 Not attempted due to Medical conditions or safety concerns Sit to/from Stand: 4 Bed to/from Chair: 4 CGA Weight Bearing Right Lower Extremity: Right Full Weight Bearing Left Lower Extremity: Left Full Weight Bearing Gait Training Gait (FIM): 2 Distance: 60', 30'x2 Gait Level of Assist: 4 Gait Persons Needed: 1 Gait Assistive Device: FWW Patient ambulates very slowly, antalgic, decreased stance time on the left leg Exercises Seated Therapy Exercises: Ankle pumps, Hip flexion Seated Reps: 20 LAQ alternating for 5 min Treatments transfers, ambulation, functional strengthening, ROM, patient was toileted once Assessment Current Status: Poor Progress Patient was toileted for a BM which was non-productive. He needs max encouragement to pull pants down and up. Needs encouragement to perform activities that he does not need help with and can easily perform such as pulling his blanket up from his waist to his shoulders. Patient has poor motivation and does not participate with full effort. PT Short Term Goals Short Term Goals Transfers (B,C,W/C) (FIM): 5 Wheelchair Distance: 150', 50' PT Senior Living Goals Senior Living Goals PT Senior Living Goals Time Frame: Mar 21, 2018 Transfers (B,C,W/C) (FIM): 6 Sit to Lying (QC): 6 Lying-Sitting on Side/Bed(QC): 6 Sit to Stand (QC): 6 Rollin Roll Left to Right (QC): 6 Chair/Ypg-wt-Bdnzr Xfer(QC): 6 Car Transfer (QC): 6 Does the Patient Walk: Yes Gait (FIM): 2 Gait distance (FIM): 8=671-60 ft Distance: 125' Walk 10 feet (QC): 5 Walk 10ft-Uneven Surface(QC): 5 Walk 50ft with 2 Turns (QC): 5 Walk 150 ft (QC): 9 Gait Level of Assist: 5 Gait Assistive Device: FWW Does the Pt use WC or Scooter?: Yes Wheelchair (FIM): 5 Wheelchair distance (FIM): 3=150 ft Distance: 150' Wheelchair Level of Assist: 5 Wheel 50 feet with 2 turns (QC: 5 Stairs (FIM): 2 # of Steps: 4 1 Step (curb) (QC): 5 4 Steps (QC): 5 12 Steps (QC): 9 Stairs Level Of Assist: 5 Picking up an Object (QC): 5 PT Plan Problem List Problem List: Activity Tolerance, Functional Strength, Safety, Balance, Gait, Transfer, Bed Mobility, ROM Treatment/Plan Treatment Plan: Continue Plan of Care Treatment Plan: Bed Mobility, Concurrent Therapy, Education, Functional Activity Vandana, Functional Strength, Group Therapy, Gait, Safety, Therapeutic Exercise, Transfers Treatment Duration: Mar 21, 2018 Frequency: At least 5 of 7 days/Wk (IRF) Estimated Hrs Per Day: 1.5 hours per day Patient and/or Family Agrees t: Yes Safety Risks/Education Patient Education: Gait Training, Transfer Techniques, Correct Positioning, Safety Issues Teaching Recipient: Patient Teaching Methods: Demonstration, Discussion Response to Teaching: Reinforcement Needed Time/GCodes Time In: 1000 Time Out: 1100 Total Billed Treatment Time: 60 Total Billed Treatment 1 visit FA 20' GT 30' EX 10' PT/OT Therapy GCodes Functional Limitation-Current Modifier: CI Functional Limitation-Goal Modifier: CI KYMBERLY TAVERA PT Mar 10, 2018 11:00
[2018-03-10] MEDS: ONDANSETRON 4 MG (ZOFRAN) ORAL DISSOLVE TAB PO PRN (11:06)
--- NOTE | 2018-03-10 13:43 | Physical Therapy Daily Note ---
PT Daily Note-Current Subjective Patient agrees to PT. No c/o. Pain Numeric Pain Scale: 5-Moderate Pain Location: Left Location Body Site: Elbow Pain Description: Acute Mental Status Patient Orientation: Normal For Age Transfers Functional [place] Measure 0=Not Assessed/NA 4=Minimal Assistance 1=Total Assistance 5=Supervision or Setup 2=Maximal Assistance 6=Modified [place] 3=Moderate Assistance 7=Complete IndependenceIRFPAI Quality Coding Scale 6 Independent with activity with or without an assistive device 5 Patient requires set up or clean up by helper. Patient completes activity by themselves 4 Supervision or touching assist (CGA). [place] provide cues , steadying assist 3 The helper provides less than half the effort to complete the activity 2 The helper provides more than half the effort to complete the activity 1 Dependent. The helper does all the effort to complete an activity 7 Patient refused to complete or attempt activity 9 The patient did not perform the activity before the current illness or injury 88 Not attempted due to Medical conditions or safety concerns Transfers (B, C, W/C) (FIM): 5 Scootin Rollin Roll Left to Right (QC): 5 Supine to/from Sit: 5 Sit to/from Stand: 5 Sit to Lying (QC): 5 Sit to Stand (QC): 5 Chair/Fjq-rd-Vdvhw Xfer(QC): 5 Bed to/from Chair: 5 Car Transfer (QC): 5 Weight Bearing Right Lower Extremity: Right Full Weight Bearing Left Lower Extremity: Left Full Weight Bearing Gait Training Does the Patient Walk?: Yes Gait (FIM): 2 Distance (FIM): 0=121-24 ft Distance: 80' x 4 Walk 10 feet (QC): 5 Walk 50 ft with 2 Turns(QC): 5 Gait Level of Assist: 5 Gait Assistive Device: FWW slow, antalgic, step to gait sequence Exercises Seated Therapy Exercises: Ankle pumps, Long arc quads Seated Reps: 25 (3 sets) Assessment Patient tolerated treatment well and is in bed with needs met. Patient is progressing with treatment plan. Family present. PT Short Term Goals Short Term Goals Transfers (B,C,W/C) (FIM): 5 Wheelchair Distance: 150', 50' PT Mcc Goals Mcc Goals PT Kiln Labourer Goals Time Frame: Mar 21, 2018 Transfers (B,C,W/C) (FIM): 6 Sit to Lying (QC): 6 Lying-Sitting on Side/Bed(QC): 6 Sit to Stand (QC): 6 Rollin Roll Left to Right (QC): 6 Chair/Vyc-ym-Yxybu Xfer(QC): 6 Car Transfer (QC): 6 Does the Patient Walk: Yes Gait (FIM): 2 Gait distance (FIM): 3=105-06 ft Distance: 125' Walk 10 feet (QC): 5 Walk 10ft-Uneven Surface(QC): 5 Walk 50ft with 2 Turns (QC): 5 Walk 150 ft (QC): 9 Gait Level of Assist: 5 Gait Assistive Device: FWW Does the Pt use WC or Scooter?: Yes Wheelchair (FIM): 5 Wheelchair distance (FIM): 3=150 ft Distance: 150' Wheelchair Level of Assist: 5 Wheel 50 feet with 2 turns (QC: 5 Stairs (FIM): 2 # of Steps: 4 1 Step (curb) (QC): 5 4 Steps (QC): 5 12 Steps (QC): 9 Stairs Level Of Assist: 5 Picking up an Object (QC): 5 PT Plan Treatment/Plan Treatment Plan: Continue Plan of Care Treatment Plan: Bed Mobility, Concurrent Therapy, Education, Functional Activity Vandana, Functional Strength, Group Therapy, Gait, Safety, Therapeutic Exercise, Transfers Treatment Duration: Mar 21, 2018 Frequency: At least 5 of 7 days/Wk (IRF) Estimated Hrs Per Day: 1.5 hours per day Patient and/or Family Agrees t: Yes Time/GCodes Time In: 1300 Time Out: 1330 Total Billed Treatment Time: 30 Total Billed Treatment 1 visit FA 17 min EX 13 min PT/OT Therapy GCodes Functional Limitation-Current Modifier: CI Functional Limitation-Goal Modifier: CI RAMBO PAYTON PT Mar 10, 2018 13:42
--- NOTE | 2018-03-10 13:50 | Occupational Ther Daily Note ---
OT Current Status-Daily Note Subjective Pt. reports that he is feeling nauseated. Nursing gives him medication. Appearance Pt. declines all attempts of getting out of chair. Mental Status/Objective Patient Orientation: Person Functional [place] Measure 0=Not Assessed/NA 4=Minimal Assistance 1=Total Assistance 5=Supervision or Setup 2=Maximal Assistance 6=Modified [place] 3=Moderate Assistance 7=Complete [place] Attachments: IV ADL-Treatment Functional [place] Measure 0=Not Assessed/NA 4=Minimal Assistance 1=Total Assistance 5=Supervision or Setup 2=Maximal Assistance 6=Modified [place] 3=Moderate Assistance 7=Complete IndependenceIRFPAI Quality Coding Scale 6 Independent with activity with or without an assistive device 5 Patient requires set up or clean up by helper. Patient completes activity by themselves 4 Supervision or touching assist (CGA). [place] provide cues , steadying assist 3 The helper provides less than half the effort to complete the activity 2 The helper provides more than half the effort to complete the activity 1 Dependent. The helper does all the effort to complete an activity 7 Patient refused to complete or attempt activity 9 The patient did not perform the activity before the current illness or injury 88 Not attempted due to Medical conditions or safety concerns Eating (FIM): 5 (SBA while pt. fed himself jello. Noted significant shaking in right hand as he brings spoon to mouth. Pt. is asked if he would like to try a hand weight to make it easier. Pt. states "no.") Eating (QC): 4 Pt. is encouraged to complete hand exercises while seated in chair. However, pt. will only do a few at a time and then stops. Pt. is asked if he is hungry. States that he doesn't want anything that he will throw up. Requests jello. OT orders him jello. After eating his jello, pt. did return to hand squeezes with pink therapy sponge, but still required encouragement. All needs met up in chair. Education OT Patient Education: Correct positioning, Modified ADL techniques, Progress toward Goal/Update tx plan, Purpose of tx/functional activities, Reviewed precautions, Rehab process, Transfer techniques Teaching Recipient: Patient Teaching Methods: Demonstration, Discussion Response to Teaching: Verbalize Understanding, Return Demonstration OT Short Term Goals Short Term Goals Time Frame: Mar 11, 2018 Eating(FIM): 5 Grooming(FIM): 4 Bathing(FIM): 4 Upper Body Dressing(FIM): 4 Lower Body Dressing(FIM): 3 Toileting(FIM): 4 Transfers (B,C,W/C) (FIM): 5 Toilet/Commode Transfer(FIM): 5 Shower Transfer(FIM): 4 Additional Short Term Goals: 1-Demonstrate ADL Tasks, 2-Verbalize Understanding , 3-ImproveStrength/Vandana 1=Demonstrate adherence to instructed precautions during ADL tasks. 2=Patient will verbalize/demonstrate understanding of assistive devices/ modifications for ADL. 3=Patient will improve strength/tolerance for activity to enable patient to perform ADL's. OT Care Home Goals Care Home Goals Time Frame: Mar 18, 2018 Eating (FIM): 6 Eating (QC): 6 Groomin Oral Hygiene (QC): 5 Bathing(FIM): 4 Shower/Bathe Self (QC): 4 Upper Body Dressing(FIM): 5 Upper Body Dressing (QC): 4 Lower Body Dressing(FIM): 4 Lower Body Dressing (QC): 4 On/Off Footwear (QC): 4 Toileting(FIM): 6 Toileting Hygiene (QC): 5 Transfers (B,C,W/C) (FIM): 5 Toilet/Commode Transfer(FIM): 5 Toilet/Commode Transfer (QC): 5 Shower Transfer(FIM): 5 Additional Goals: 1-Demonstrate ADL Tasks, 2-Verbalize Understanding, 3- ImproveStrength/Vandana 1=Demonstrate adherence to instructed precautions during ADL tasks. 2=Patient will verbalize/demonstrate understanding of assistive devices/ modifications for ADL. 3=Patient will improve strength/tolerance for activity to enable patient to perform ADL's. OT Education/Plan Problem List/Assessment Assessment: Decreased Activ Tolerance, Decreased UE Strength, Dependent Transfers, Impaired Bed Mobility, Impaired Funct Balance, Impaired I ADL's, Impaired Self-Care Skills, Restricted Funct UE ROM Discharge Recommendations Plan/Recommendations: Continue POC Therapy D/C Recommendations: Home w/ Family Support, Scheduled Assistance Treatment Plan/Plan of Care Treatment,Training & Education: Yes Patient would benefit from OT for education, treatment and training to promote independence in ADL's, mobility, safety and/or upper extremity function for ADL' s. Plan of Care: ADL Retraining, Functional Mobility, Group Exercise/Act as Ind, UE Funct Exercise/Act Treatment Duration: Mar 18, 2018 Frequency: At least 5 of 7 days/Wk (IRF) Estimated Hrs Per Day: 1.5 hours per day Agreement: Yes Rehab Potential: Fair Time/GCodes Start Time: 11:00 Stop Time: 11:30 Total Time Billed (hr/min): 30 Billed Treatment Time 1, EX x 2 PT/OT Therapy GCodes Functional Limitation-Current Modifier: CI Functional Limitation-Goal Modifier: CI CELI HAWK OT Mar 10, 2018 13:50
[2018-03-10 18:06] VITALS: BP 145/78
--- NOTE | 2018-03-10 19:44 | Progress Note (SOAP) ---
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 Has catheter in and Creatinine improved. Admits has been having more difficulty with urination for some time. Objective Exam Vital Signs Date Time Temp Pulse Resp B/P (MAP) Pulse Ox O2 Delivery O2 Flow Rate FiO2 03/10/18 18:06 97.3 70 16 145/78 (100) 98 Room Air 03/10/18 09:01 Room Air 03/10/18 06:10 98.4 78 16 137/81 (99) 98 Room Air 03/09/18 21:02 Room Air I & O 03/10/18 07:00 Intake Total 1050 ml Output Total 950 ml Balance 100 ml Capillary Refill : Less Than 3 Seconds General Appearance: No Apparent Distress Respiratory: Lungs Clear Cardiovascular: Regular Rate, Rhythm Gastrointestinal: normal bowel sounds, non tender, soft Extremity: Non Tender, No Calf Tenderness, No Pedal Edema Neurologic/Psychiatric: Alert, Oriented x3 Results Lab Microbiology 03/03/18 Urine Culture - Final, Complete See Comments Assessment/Plan Assessment/Plan Assess & Plan/Chief Complaint 1. Left Sacral Ala Fracture with worsening debility--admitted for PT/OT, started on miacalcin nasal spray to assist in fracture healing and pain 2. UTI--switched to Rocephin due to acute renal failure 3. Hypertension with current hypotension--BP meds on hold and monitoring BP 4. Parkinson's--sinemet resumed 5. 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 Acute Renal Failure--post-obstructive, Creatinine improved, urinary catheter in place and cystoscopy tomorrow per urology 7. GERD/Dyspepsia--increased protonix to 40mg po BID and has zofran prn Clinical Quality Measures DVT/VTE Risk/Contraindication: Risk Factor Score Per Nursin RFS Level Per Nursing on Admit: 4+=Very High NAPOLEON AKHTAR DO Mar 10, 2018 7:44 pm
[2018-03-10] MEDS: SIMvastatin 40 MG (ZOCOR) TAB PO SCH (20:06)
[2018-03-10] MEDS: SERTRALINE 50 MG (ZOLOFT) TABLET PO SCH (20:06)
[2018-03-11] MEDS: BETHANECHOL 10 MG (URECHOLINE) TAB PO SCH (05:54)
[2018-03-11] MEDS: PANTOPRAZOLE 40 MG (PROTONIX) TAB PO SCH ×2 (05:54→16:14)
[2018-03-11] MEDS: VITAMIN D3 5,000 UNITS (CHOLECALCIFEROL ) CAPSULE PO SCH (05:54)
[2018-03-11 06:00] VITALS: BP 119/70
--- NOTE | 2018-03-11 07:45 | Progress Note-Pre Operative ---
Pre-Operative Progress Note H&P Reviewed The H&P was reviewed, patient examined and no changes noted. Date Seen by Provider: Mar 11, 2018 Time Seen by Provider: 07:44 Date H&P Reviewed: Mar 11, 2018 Time H&P Reviewed: 07:44 Pre-Operative Diagnosis: URINE RETENTION UMER BAUTISTA MD Mar 11, 2018 7:45 am
[2018-03-11] MEDS: cefTRIAXone INJECTION 1,000 MG in NS (IVPB) 50 ML IV SCH (08:07)
[2018-03-11] MEDS: DIVALPROEX 250 MG DELAYED RELEASE (DEPAKOTE) TAB PO SCH ×2 (08:07→20:51)
[2018-03-11] MEDS: SINEMET CR 50/200 (CARBIDOPA/LEVODOPA SA) TAB PO SCH ×2 (08:07→20:51)
[2018-03-11] MEDS: ASPIRIN E.C. 81 MG (ECOTRIN) TAB PO SCH (08:07)
[2018-03-11] MEDS: CALCITONIN NASAL 200 INTLU/AC (FORTICAL) 3.7 ML BTL NS SCH (08:10)
[2018-03-11] MEDS: ACETAMINOPHEN 500 MG TAB (TYLENOL) PO PRN (08:10)
[2018-03-11] MEDS: SILVER SULFADIAZINE 50 GM CREAM TOP SCH (08:10)
[2018-03-11] MEDS ORDERED: LIDOCAINE UROJET 2% GEL 10 ML PKG ONE (08:59)
--- NOTE | 2018-03-11 08:59 | Physical Therapy Daily Note ---
PT Daily Note-Current Subjective Pt. c/o he still has pain in his bottom and hip at 6/10 with weight bearing and some movement. Pt. states he will be having a procedure and hopes they can straighten out his urinary problems Pain Numeric Pain Scale: 6 Location: Left Location Body Site: Hip Pain Description: Stabbing Mental Status Patient Orientation: Person, Place, Time, Situation Attachments: Mclaughlin Catheter, IV Transfers Functional [place] Measure 0=Not Assessed/NA 4=Minimal Assistance 1=Total Assistance 5=Supervision or Setup 2=Maximal Assistance 6=Modified [place] 3=Moderate Assistance 7=Complete IndependenceIRFPAI Quality Coding Scale 6 Independent with activity with or without an assistive device 5 Patient requires set up or clean up by helper. Patient completes activity by themselves 4 Supervision or touching assist (CGA). [place] provide cues , steadying assist 3 The helper provides less than half the effort to complete the activity 2 The helper provides more than half the effort to complete the activity 1 Dependent. The helper does all the effort to complete an activity 7 Patient refused to complete or attempt activity 9 The patient did not perform the activity before the current illness or injury 88 Not attempted due to Medical conditions or safety concerns Transfers (B, C, W/C) (FIM): 4 Scootin Rollin Supine to/from Sit: 4 Sit to/from Stand: 5 Bed to/from Chair: 4 Weight Bearing Right Lower Extremity: Right Full Weight Bearing Left Lower Extremity: Left Full Weight Bearing Gait Training Does the Patient Walk?: Yes Gait (FIM): 2 Distance (FIM): 2=310-44 ft (55ft x2) Gait Level of Assist: 4 Gait Persons Needed: 1 Gait Assistive Device: FWW "ouch" each step Exercises Supine Ex: Bridging, Ankle pumps, Quad Set, Rolling, Glut sets, Heel Slides, Short Arc Quads, Scooting, Hip abd/add Supine Reps: 12 (x2) Seated Therapy Exercises: Ankle pumps, Sit to stand, Long arc quads Seated Reps: 8 Treatments requested to toilet, felt he might need to have BM but states it was only gas. max assist to doff, sweat pants and soiled brief. Both left off as pt. to have cystoscopy at 930 am. Pt. cleaned at bill area with max assist Assessment Current Status: Fair Progress PT Short Term Goals Short Term Goals Transfers (B,C,W/C) (FIM): 5 Wheelchair Distance: 150', 50' PT Half-Way Goals Central Sterile Supply Technician Goals PT Half-Way Goals Time Frame: Mar 21, 2018 Transfers (B,C,W/C) (FIM): 6 Sit to Lying (QC): 6 Lying-Sitting on Side/Bed(QC): 6 Sit to Stand (QC): 6 Rollin Roll Left to Right (QC): 6 Chair/Lji-mk-Hhtec Xfer(QC): 6 Car Transfer (QC): 6 Does the Patient Walk: Yes Gait (FIM): 2 Gait distance (FIM): 2=969-46 ft Distance: 125' Walk 10 feet (QC): 5 Walk 10ft-Uneven Surface(QC): 5 Walk 50ft with 2 Turns (QC): 5 Walk 150 ft (QC): 9 Gait Level of Assist: 5 Gait Assistive Device: FWW Does the Pt use WC or Scooter?: Yes Wheelchair (FIM): 5 Wheelchair distance (FIM): 3=150 ft Distance: 150' Wheelchair Level of Assist: 5 Wheel 50 feet with 2 turns (QC: 5 Stairs (FIM): 2 # of Steps: 4 1 Step (curb) (QC): 5 4 Steps (QC): 5 12 Steps (QC): 9 Stairs Level Of Assist: 5 Picking up an Object (QC): 5 PT Plan Treatment/Plan Treatment Plan: Continue Plan of Care Treatment Plan: Bed Mobility, Concurrent Therapy, Education, Functional Activity Vandana, Functional Strength, Group Therapy, Gait, Safety, Therapeutic Exercise, Transfers Treatment Duration: Mar 21, 2018 Frequency: At least 5 of 7 days/Wk (IRF) Estimated Hrs Per Day: 1.5 hours per day Patient and/or Family Agrees t: Yes Safety Risks/Education Patient Education: Gait Training, Transfer Techniques, Correct Positioning, Disease Process, Safety Issues Teaching Recipient: Patient Teaching Methods: Demonstration, Discussion Response to Teaching: Verbalize Understanding, Return Demonstration, Reinforcement Needed with nurses input the cysto procedure was explained to pt. at greater length Time/GCodes Time In: 800 Time Out: 900 Total Billed Treatment Time: 60 Total Billed Treatment 1,EX20m,FA25m,GT15m G Codes Necessary: No PT/OT Therapy GCodes Functional Limitation-Current Modifier: CI Functional Limitation-Goal Modifier: CI ISABELLA MEEKS ADMINISTRATIVE SUPPORT SPECIALIST Mar 11, 2018 08:59
--- NOTE | 2018-03-11 09:45 | Occupational Ther Daily Note ---
OT Current Status-Daily Note Subjective Pt alert, lying in bed. Pt requires a lot of encouragement to participate in OT today. Pt stated that he doesn't want to miss the doctor, KHANNA reassured pt that he would be in the room for the doctor. Daughter was initially present in room then left when pt began to decline therapy. Pt c/o pain at tailbone, did not rate. Mental Status/Objective Patient Orientation: Person, Place, Time, Situation Functional [place] Measure 0=Not Assessed/NA 4=Minimal Assistance 1=Total Assistance 5=Supervision or Setup 2=Maximal Assistance 6=Modified [place] 3=Moderate Assistance 7=Complete [place] Attachments: Mclaughlin Catheter, IV ADL-Treatment Pt declined shower today. Pt did agree to complete sponge bath in recliner. Min A with HOB raised to go from supine to EOB. CGA to ambulate from bed to recliner. Pt would raise arm for KHANNA to wash, KHANNA handed pt washcloth and pt bathed face, upper body (L arm), and bill area, assist for R arm and buttocks. Pt declined to don regular clothing or briefs, wanted to don hospital gown. Pt completed procedure in room. Min A to go from EOB to supine and back. Pt ambulated to bathroom with CGA using FWW. Oral care and grooming completed, did not apply dentures, while standing at sink with close SBA. Pt then ambulated back to bed, min A EOB to supine. After therapy, pt lying in bed with call light/phone in reach. All needs met in room. Functional [place] Measure 0=Not Assessed/NA 4=Minimal Assistance 1=Total Assistance 5=Supervision or Setup 2=Maximal Assistance 6=Modified [place] 3=Moderate Assistance 7=Complete IndependenceIRFPAI Quality Coding Scale 6 Independent with activity with or without an assistive device 5 Patient requires set up or clean up by helper. Patient completes activity by themselves 4 Supervision or touching assist (CGA). [place] provide cues , steadying assist 3 The helper provides less than half the effort to complete the activity 2 The helper provides more than half the effort to complete the activity 1 Dependent. The helper does all the effort to complete an activity 7 Patient refused to complete or attempt activity 9 The patient did not perform the activity before the current illness or injury 88 Not attempted due to Medical conditions or safety concerns Grooming (FIM): 5 Oral Hygiene (QC): 4 Bathing (FIM): 3 Bathing Location: L Arm, L Upper Leg, R Upper Leg, Chest, Abdomen, Perineal Area Shower/Bathe Self (QC): 2 OT Short Term Goals Short Term Goals Time Frame: Mar 11, 2018 Eating(FIM): 5 Grooming(FIM): 4 Bathing(FIM): 4 Upper Body Dressing(FIM): 4 Lower Body Dressing(FIM): 3 Toileting(FIM): 4 Transfers (B,C,W/C) (FIM): 5 Toilet/Commode Transfer(FIM): 5 Shower Transfer(FIM): 4 Additional Short Term Goals: 1-Demonstrate ADL Tasks, 2-Verbalize Understanding , 3-ImproveStrength/Vandana 1=Demonstrate adherence to instructed precautions during ADL tasks. 2=Patient will verbalize/demonstrate understanding of assistive devices/ modifications for ADL. 3=Patient will improve strength/tolerance for activity to enable patient to perform ADL's. OT Cable Testers Helper Goals Mcc Goals Time Frame: Mar 18, 2018 Eating (FIM): 6 Eating (QC): 6 Groomin Oral Hygiene (QC): 5 Bathing(FIM): 4 Shower/Bathe Self (QC): 4 Upper Body Dressing(FIM): 5 Upper Body Dressing (QC): 4 Lower Body Dressing(FIM): 4 Lower Body Dressing (QC): 4 On/Off Footwear (QC): 4 Toileting(FIM): 6 Toileting Hygiene (QC): 5 Transfers (B,C,W/C) (FIM): 5 Toilet/Commode Transfer(FIM): 5 Toilet/Commode Transfer (QC): 5 Shower Transfer(FIM): 5 Additional Goals: 1-Demonstrate ADL Tasks, 2-Verbalize Understanding, 3- ImproveStrength/Vandana 1=Demonstrate adherence to instructed precautions during ADL tasks. 2=Patient will verbalize/demonstrate understanding of assistive devices/ modifications for ADL. 3=Patient will improve strength/tolerance for activity to enable patient to perform ADL's. OT Education/Plan Discharge Recommendations Plan/Recommendations: Continue POC Treatment Plan/Plan of Care Patient would benefit from OT for education, treatment and training to promote independence in ADL's, mobility, safety and/or upper extremity function for ADL' s. Plan of Care: ADL Retraining, Functional Mobility, Group Exercise/Act as Ind, UE Funct Exercise/Act Treatment Duration: Mar 18, 2018 Frequency: At least 5 of 7 days/Wk (IRF) Estimated Hrs Per Day: 1.5 hours per day Agreement: Yes Rehab Potential: Fair Time/GCodes Start Time: 09:00 Stop Time: 10:00 Total Time Billed (hr/min): 60 Billed Treatment Time 1 visit-ADL 4 (60 min) PT/OT Therapy GCodes Functional Limitation-Current Modifier: CI Functional Limitation-Goal Modifier: IRWIN KOEHLER Mar 11, 2018 09:45
[2018-03-11] MEDS: BETHANECHOL 25 MG (URECHOLINE) TAB PO SCH ×3 (10:54→20:50)
--- NOTE | 2018-03-11 13:31 | Physical Therapy Daily Note ---
PT Daily Note-Current Subjective Pt. states he doesnt really want to get up to work but [place] with encouragement. States he feels he may need to go to the bathroom for urination. Pain Numeric Pain Scale: 4 Location: Left Location Body Site: Hip Pain Description: Ache Transfers Functional [place] Measure 0=Not Assessed/NA 4=Minimal Assistance 1=Total Assistance 5=Supervision or Setup 2=Maximal Assistance 6=Modified [place] 3=Moderate Assistance 7=Complete IndependenceIRFPAI Quality Coding Scale 6 Independent with activity with or without an assistive device 5 Patient requires set up or clean up by helper. Patient completes activity by themselves 4 Supervision or touching assist (CGA). [place] provide cues , steadying assist 3 The helper provides less than half the effort to complete the activity 2 The helper provides more than half the effort to complete the activity 1 Dependent. The helper does all the effort to complete an activity 7 Patient refused to complete or attempt activity 9 The patient did not perform the activity before the current illness or injury 88 Not attempted due to Medical conditions or safety concerns in out bed and sit to stand all SBA to CGA Weight Bearing Right Lower Extremity: Right Full Weight Bearing Left Lower Extremity: Left Full Weight Bearing Gait Training Gait Assistive Device: FWW 125, 100,50 all FWW CGA and pt. c/o pain with each step Exercises Supine Ex: Ankle pumps, Quad Set, Rolling, Glut sets, Heel Slides, Short Arc Quads, Scooting, Straight leg raise, Hip abd/add Supine Reps: 15 Treatments assist to bathroom, unable to urinate but had quite the urge Assessment Current Status: Fair Progress pain c/o in "tail bone" and left hip limit pts motivation PT Short Term Goals Short Term Goals Transfers (B,C,W/C) (FIM): 5 Wheelchair Distance: 150', 50' PT Programming Instructor Goals Programming Instructor Goals PT Alf Goals Time Frame: Mar 21, 2018 Transfers (B,C,W/C) (FIM): 6 Sit to Lying (QC): 6 Lying-Sitting on Side/Bed(QC): 6 Sit to Stand (QC): 6 Rollin Roll Left to Right (QC): 6 Chair/Sqv-zk-Nkspf Xfer(QC): 6 Car Transfer (QC): 6 Does the Patient Walk: Yes Gait (FIM): 2 Gait distance (FIM): 4=691-78 ft Distance: 125' Walk 10 feet (QC): 5 Walk 10ft-Uneven Surface(QC): 5 Walk 50ft with 2 Turns (QC): 5 Walk 150 ft (QC): 9 Gait Level of Assist: 5 Gait Assistive Device: FWW Does the Pt use WC or Scooter?: Yes Wheelchair (FIM): 5 Wheelchair distance (FIM): 3=150 ft Distance: 150' Wheelchair Level of Assist: 5 Wheel 50 feet with 2 turns (QC: 5 Stairs (FIM): 2 # of Steps: 4 1 Step (curb) (QC): 5 4 Steps (QC): 5 12 Steps (QC): 9 Stairs Level Of Assist: 5 Picking up an Object (QC): 5 PT Plan Treatment/Plan Treatment Plan: Continue Plan of Care Treatment Plan: Bed Mobility, Concurrent Therapy, Education, Functional Activity Vandana, Functional Strength, Group Therapy, Gait, Safety, Therapeutic Exercise, Transfers Treatment Duration: Mar 21, 2018 Frequency: At least 5 of 7 days/Wk (IRF) Estimated Hrs Per Day: 1.5 hours per day Patient and/or Family Agrees t: Yes Safety Risks/Education Patient Education: Gait Training, Transfer Techniques, Correct Positioning, Disease Process, Safety Issues Teaching Recipient: Patient Teaching Methods: Demonstration, Discussion Response to Teaching: Verbalize Understanding, Return Demonstration, Reinforcement Needed Time/GCodes Time In: 1300 Time Out: 1330 Total Billed Treatment Time: 30 Total Billed Treatment 1,EX10m,FA20m G Codes Necessary: No PT/OT Therapy GCodes Functional Limitation-Current Modifier: CI Functional Limitation-Goal Modifier: ISABELLA TEIXEIRA RN CCU Mar 11, 2018 13:31
--- NOTE | 2018-03-11 14:49 | Occupational Ther Daily Note ---
OT Current Status-Daily Note Subjective Pt alert, lying in bed. When KHANNA entered room pt stated that he had just gotten comfortable and already had been up and walking. Pt required encouragement to participate in therapy. Pt agreed to therapy if he could lay in bed. Mental Status/Objective Patient Orientation: Person, Place, Time, Situation Functional [place] Measure 0=Not Assessed/NA 4=Minimal Assistance 1=Total Assistance 5=Supervision or Setup 2=Maximal Assistance 6=Modified [place] 3=Moderate Assistance 7=Complete [place] Attachments: IV ADL-Treatment Functional [place] Measure 0=Not Assessed/NA 4=Minimal Assistance 1=Total Assistance 5=Supervision or Setup 2=Maximal Assistance 6=Modified [place] 3=Moderate Assistance 7=Complete IndependenceIRFPAI Quality Coding Scale 6 Independent with activity with or without an assistive device 5 Patient requires set up or clean up by helper. Patient completes activity by themselves 4 Supervision or touching assist (CGA). [place] provide cues , steadying assist 3 The helper provides less than half the effort to complete the activity 2 The helper provides more than half the effort to complete the activity 1 Dependent. The helper does all the effort to complete an activity 7 Patient refused to complete or attempt activity 9 The patient did not perform the activity before the current illness or injury 88 Not attempted due to Medical conditions or safety concerns Other Treatment Pt completed UE exercises against gravity to increase strength and activity tolerance. Throughout session pt required verbal cues to focus on task. Pt was able to complete gross ROM with L UE, minimal movement with L hand. Pt was able to complete reaching and grasping to place in designated areas against gravity. After therapy, pt lying in bed with call light/phone in reach. All needs met in room. OT Short Term Goals Short Term Goals Time Frame: Mar 11, 2018 Eating(FIM): 5 Grooming(FIM): 4 Bathing(FIM): 4 Upper Body Dressing(FIM): 4 Lower Body Dressing(FIM): 3 Toileting(FIM): 4 Transfers (B,C,W/C) (FIM): 5 Toilet/Commode Transfer(FIM): 5 Shower Transfer(FIM): 4 Additional Short Term Goals: 1-Demonstrate ADL Tasks, 2-Verbalize Understanding , 3-ImproveStrength/Vandana 1=Demonstrate adherence to instructed precautions during ADL tasks. 2=Patient will verbalize/demonstrate understanding of assistive devices/ modifications for ADL. 3=Patient will improve strength/tolerance for activity to enable patient to perform ADL's. OT Skilled Nursing Goals Oven Equipment Repairer Goals Time Frame: Mar 18, 2018 Eating (FIM): 6 Eating (QC): 6 Groomin Oral Hygiene (QC): 5 Bathing(FIM): 4 Shower/Bathe Self (QC): 4 Upper Body Dressing(FIM): 5 Upper Body Dressing (QC): 4 Lower Body Dressing(FIM): 4 Lower Body Dressing (QC): 4 On/Off Footwear (QC): 4 Toileting(FIM): 6 Toileting Hygiene (QC): 5 Transfers (B,C,W/C) (FIM): 5 Toilet/Commode Transfer(FIM): 5 Toilet/Commode Transfer (QC): 5 Shower Transfer(FIM): 5 Additional Goals: 1-Demonstrate ADL Tasks, 2-Verbalize Understanding, 3- ImproveStrength/Vandana 1=Demonstrate adherence to instructed precautions during ADL tasks. 2=Patient will verbalize/demonstrate understanding of assistive devices/ modifications for ADL. 3=Patient will improve strength/tolerance for activity to enable patient to perform ADL's. OT Education/Plan Discharge Recommendations Plan/Recommendations: Continue POC Treatment Plan/Plan of Care Patient would benefit from OT for education, treatment and training to promote independence in ADL's, mobility, safety and/or upper extremity function for ADL' s. Plan of Care: ADL Retraining, Functional Mobility, Group Exercise/Act as Ind, UE Funct Exercise/Act Treatment Duration: Mar 18, 2018 Frequency: At least 5 of 7 days/Wk (IRF) Estimated Hrs Per Day: 1.5 hours per day Agreement: Yes Rehab Potential: Fair Time/GCodes Start Time: 13:30 Stop Time: 14:00 Total Time Billed (hr/min): 30 Billed Treatment Time 1 visit-EX 2 (30 min) PT/OT Therapy GCodes Functional Limitation-Current Modifier: CI Functional Limitation-Goal Modifier: IRWIN KOEHLER Mar 11, 2018 14:49
--- NOTE | 2018-03-11 16:55 | OPERATIVE REPORT ---
DATE OF SERVICE: 03/11/2018 PREOPERATIVE DIAGNOSIS: Urinary retention. POSTOPERATIVE DIAGNOSES: 1. Urinary retention. 2. Neurogenic bladder. 3. Mild bladder neck contracture. OPERATION PERFORMED: Cystoscopy. SURGEON: Aki Bautista MD. ANESTHESIA: Local. COMPLICATIONS: None. DESCRIPTION OF PROCEDURE: With the patient supine in his bed after removing the Mclaughlin catheter, genitalia were prepped and draped in the usual sterile fashion. Flexible cystoscope was introduced under vision. Urethra was normal. The prostate was resected. There was a mild bladder neck contracture admitting the flexible scope. Bladder revealed trabeculations and catheter cystitis. No bladder tumor or stone visualized. Cystoscopy was confirmed in antegrade fashion and the cystoscope was removed. The patient tolerated the procedure and anesthesia very well and remained in his bed in stable condition. PLAN: We will increase his Urecholine to 25 mg q.i.d. a.c. and at bedtime. We will do bladder scan postvoid residual on him. If he has retention, we will insert an 18-Divehi Mclaughlin catheter and recheck again later on and do this way soft dilatation of that bladder neck contracture hoping to avoid any surgery as the transurethral resection of the bladder neck contracture. We will adjust the Urecholine accordingly since he is tolerating it well so far. Job ID: [id number] DocumentID: [id number] Dictated Date: 03/11/2018 10:21:07 Dispatch Officer Date: 03/11/2018 16:55:17 Dictated By: AKI BAUTISTA MD MTDD
[2018-03-11 17:13] VITALS: BP 122/64
--- NOTE | 2018-03-11 20:35 | Progress Note (SOAP) ---
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 Had cystoscope today and catheter out. Objective Exam Vital Signs Date Time Temp Pulse Resp B/P (MAP) Pulse Ox O2 Delivery O2 Flow Rate FiO2 03/11/18 17:13 98.0 64 16 122/64 (83) 96 Room Air 03/11/18 08:51 Room Air 03/11/18 06:00 97.4 60 16 119/70 (86) 96 Room Air I & O 03/11/18 07:00 Intake Total 910 ml Output Total 700 ml Balance 210 ml Capillary Refill : Less Than 3 Seconds General Appearance: No Apparent Distress Respiratory: Lungs Clear Cardiovascular: Regular Rate, Rhythm Gastrointestinal: normal bowel sounds, non tender, soft Extremity: Non Tender, No Calf Tenderness, No Pedal Edema Neurologic/Psychiatric: Alert, Oriented x3 Results Lab Microbiology 03/03/18 Urine Culture - Final, Complete See Comments Assessment/Plan Assessment/Plan Assess & Plan/Chief Complaint 1. Left Sacral Ala Fracture with worsening debility--admitted for PT/OT, started on miacalcin nasal spray to assist in fracture healing and pain 2. UTI--switched to Rocephin due to acute renal failure 3. Hypertension--low dose metoprolol restarted 4. Parkinson's--sinemet resumed 5. 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 Acute Renal Failure--post-obstructive, Creatinine improved, cystoscopy this morning and urinary catheter out and urology has increased urecholine and will monitor urine output and residuals 7. GERD/Dyspepsia--increased protonix to 40mg po BID and has zofran prn Clinical Quality Measures DVT/VTE Risk/Contraindication: Risk Factor Score Per Nursin RFS Level Per Nursing on Admit: 4+=Very High NAPOLEON AKHTAR DO Mar 11, 2018 8:35 pm
[2018-03-11] MEDS: SERTRALINE 50 MG (ZOLOFT) TABLET PO SCH (20:50)
[2018-03-11] MEDS: SIMvastatin 40 MG (ZOCOR) TAB PO SCH (20:50)
[2018-03-12 05:51] VITALS: BP 134/81
[2018-03-12] MEDS: PANTOPRAZOLE 40 MG (PROTONIX) TAB PO SCH ×2 (06:33→16:30)
[2018-03-12] MEDS: VITAMIN D3 5,000 UNITS (CHOLECALCIFEROL ) CAPSULE PO SCH (06:33)
[2018-03-12] MEDS: BETHANECHOL 25 MG (URECHOLINE) TAB PO SCH ×4 (06:33→21:21)
[2018-03-12] MEDS: DIVALPROEX 250 MG DELAYED RELEASE (DEPAKOTE) TAB PO SCH ×2 (08:15→21:21)
[2018-03-12] MEDS: ASPIRIN E.C. 81 MG (ECOTRIN) TAB PO SCH (08:15)
[2018-03-12] MEDS: SINEMET CR 50/200 (CARBIDOPA/LEVODOPA SA) TAB PO SCH ×2 (08:15→21:21)
[2018-03-12] MEDS: cefTRIAXone INJECTION 1,000 MG in NS (IVPB) 50 ML IV SCH (08:15)
[2018-03-12] MEDS: CALCITONIN NASAL 200 INTLU/AC (FORTICAL) 3.7 ML BTL NS SCH (08:19)
[2018-03-12] MEDS: SILVER SULFADIAZINE 50 GM CREAM TOP SCH (08:19)
[2018-03-12] MEDS: ACETAMINOPHEN 500 MG TAB (TYLENOL) PO PRN ×2 (08:23→14:35)
--- NOTE | 2018-03-12 08:41 | Progress Note (SOAP) ---
Subjective Time Seen by Provider: 08:35 Subjective/Events-last exam Debility. Left sacral alar fracture. UTI. Hypotension. Patient has Mclaughlin catheter in. Patient resting comfortably in bed. Patient has way to go Objective Exam Vital Signs Date Time Temp Pulse Resp B/P (MAP) Pulse Ox O2 Delivery O2 Flow Rate FiO2 03/12/18 05:51 97.2 70 18 134/81 (98) 95 Room Air 03/11/18 21:00 Room Air 03/11/18 17:13 98.0 64 16 122/64 (83) 96 Room Air 03/11/18 08:51 Room Air I & O 03/12/18 07:00 Intake Total 850 ml Output Total 1750 ml Balance -900 ml Capillary Refill : Less Than 3 Seconds General Appearance: No Apparent Distress, WD/WN HEENT: Normal ENT Inspection Neck: Full Range of Motion, Normal Inspection Respiratory: No Accessory Muscle Use, No Respiratory Distress Cardiovascular: Regular Rate, Rhythm, No Murmur Gastrointestinal: non tender, soft Results Lab Microbiology 03/03/18 Urine Culture - Final, Complete See Comments Assessment/Plan Assessment/Plan Assess & Plan/Chief Complaint Debility. Left sacral alar fracture. UTI. Hypotension. Previous CVA on left side. Postobstructive acute renal failure Clinical Quality Measures DVT/VTE Risk/Contraindication: Risk Factor Score Per Nursin RFS Level Per Nursing on Admit: 4+=Very High NATHEN CARDENAS DO Mar 12, 2018 08:41
--- NOTE | 2018-03-12 09:19 | Progress Note-Urology ---
Progress Note-Urology Progress Notes/Assess & Plan Progress/Assessment & Plan 18 FR BRAVO BACK IN. WE WILL RETRY TOMORROW AND ADJUST URECHOLINE PRN AND USE 20FR BRAVO IF NEEDED TO CONTINUE SOFT DILATATION OF BNC Final Diagnosis URINE RETENTION, NEUROGENIC BLADDER, BNC UMER BAUTISTA MD Mar 12, 2018 9:19 am
--- NOTE | 2018-03-12 10:28 | Occupational Ther Daily Note ---
OT Current Status-Daily Note Subjective Pt sleeping in bed. Pt woke after calling name multiple times. Pt required encouragement to participate in therapy. No c/o pain at this time. Mental Status/Objective Patient Orientation: Person Functional [place] Measure 0=Not Assessed/NA 4=Minimal Assistance 1=Total Assistance 5=Supervision or Setup 2=Maximal Assistance 6=Modified [place] 3=Moderate Assistance 7=Complete [place] Attachments: IV ADL-Treatment Pt took increased time to complete tasks due to reluctance to participate and easily distracted. Pt would stop what he was doing and would discuss his grandkids or boyscouts and would need to be redirected to task. Pt did agree to getting into shower and rinsing off, did not want to bathe with soap. Assisted pt to adjust water temp and shower head, sat on shower bench and let water run on him. Pt was able to dry all areas except buttocks and lower legs. Declined completing any grooming at this time. Pt was able to don pants over feet and pull up LE's, assist to hike over hips. Assist to position shirt then pt was able to thread each UE into sleeves, assist to pull shirt up R UE. Verbal and physical cues to caul puller head and pull down in front, assist to pull down in back. Pt demonstrated inability to problem solve when clothing gets stuck, either he would sit there and do nothing or ask for help. Pt able to ambulate with FWW using CGA. Transferred to shower and chair with close SBA. Functional [place] Measure 0=Not Assessed/NA 4=Minimal Assistance 1=Total Assistance 5=Supervision or Setup 2=Maximal Assistance 6=Modified [place] 3=Moderate Assistance 7=Complete IndependenceIRFPAI Quality Coding Scale 6 Independent with activity with or without an assistive device 5 Patient requires set up or clean up by helper. Patient completes activity by themselves 4 Supervision or touching assist (CGA). [place] provide cues , steadying assist 3 The helper provides less than half the effort to complete the activity 2 The helper provides more than half the effort to complete the activity 1 Dependent. The helper does all the effort to complete an activity 7 Patient refused to complete or attempt activity 9 The patient did not perform the activity before the current illness or injury 88 Not attempted due to Medical conditions or safety concerns Bathing (FIM): 0 (Pt refused to use soap to wash self. Pt rinse skin off with water then dried all areas except lower legs and buttocks.) Upper Body (FIM): 2 Upper Body Dressing (QC): 2 Lower Body Dressing (FIM): 3 Lower Body Dressing (QC): 3 On/Off Footwear (QC): 1 Shower Transfer(FIM): 5 Other Treatment Pt completed UE exercises against gravity to increase strength and activity tolerance for daily functional tasks. After therapy, pt sitting in recliner sleeping with call light/phone in reach. All needs met in room. OT Short Term Goals Short Term Goals Time Frame: Mar 11, 2018 Eating(FIM): 5 Grooming(FIM): 4 Bathing(FIM): 4 Upper Body Dressing(FIM): 4 Lower Body Dressing(FIM): 3 Toileting(FIM): 4 Transfers (B,C,W/C) (FIM): 5 Toilet/Commode Transfer(FIM): 5 Shower Transfer(FIM): 4 Additional Short Term Goals: 1-Demonstrate ADL Tasks, 2-Verbalize Understanding , 3-ImproveStrength/Vandana 1=Demonstrate adherence to instructed precautions during ADL tasks. 2=Patient will verbalize/demonstrate understanding of assistive devices/ modifications for ADL. 3=Patient will improve strength/tolerance for activity to enable patient to perform ADL's. OT Audit Machine Operator Goals Custodial Goals Time Frame: Mar 18, 2018 Eating (FIM): 6 Eating (QC): 6 Groomin Oral Hygiene (QC): 5 Bathing(FIM): 4 Shower/Bathe Self (QC): 4 Upper Body Dressing(FIM): 5 Upper Body Dressing (QC): 4 Lower Body Dressing(FIM): 4 Lower Body Dressing (QC): 4 On/Off Footwear (QC): 4 Toileting(FIM): 6 Toileting Hygiene (QC): 5 Transfers (B,C,W/C) (FIM): 5 Toilet/Commode Transfer(FIM): 5 Toilet/Commode Transfer (QC): 5 Shower Transfer(FIM): 5 Additional Goals: 1-Demonstrate ADL Tasks, 2-Verbalize Understanding, 3- ImproveStrength/Vandana 1=Demonstrate adherence to instructed precautions during ADL tasks. 2=Patient will verbalize/demonstrate understanding of assistive devices/ modifications for ADL. 3=Patient will improve strength/tolerance for activity to enable patient to perform ADL's. OT Education/Plan Discharge Recommendations Plan/Recommendations: Continue POC Treatment Plan/Plan of Care Patient would benefit from OT for education, treatment and training to promote independence in ADL's, mobility, safety and/or upper extremity function for ADL' s. Plan of Care: ADL Retraining, Functional Mobility, Group Exercise/Act as Ind, UE Funct Exercise/Act Treatment Duration: Mar 18, 2018 Frequency: At least 5 of 7 days/Wk (IRF) Estimated Hrs Per Day: 1.5 hours per day Agreement: Yes Rehab Potential: Fair Time/GCodes Start Time: 09:00 Stop Time: 10:30 Total Time Billed (hr/min): 90 Billed Treatment Time 1 visit-ADL 5 (80 min) EX 1 (10 min) PT/OT Therapy GCodes Functional Limitation-Current Modifier: CI Functional Limitation-Goal Modifier: IRWIN KOEHLER Mar 12, 2018 10:28
--- NOTE | 2018-03-12 11:56 | Physical Therapy Daily Note ---
PT Daily Note-Current Subjective Pt sitting in recliner upon arrival. Pt agrees to PT. Pain Numeric Pain Scale: 5-Moderate Pain Location: Left, Dorsal Location Body Site: Sacrum Pain Description: Ache Comment: Pt reports achy pain in hip & tailbone/sacrum. Mental Status Patient Orientation: Person, Place, Situation Attachments: Mclaughlin Catheter Transfers Functional [place] Measure 0=Not Assessed/NA 4=Minimal Assistance 1=Total Assistance 5=Supervision or Setup 2=Maximal Assistance 6=Modified [place] 3=Moderate Assistance 7=Complete IndependenceIRFPAI Quality Coding Scale 6 Independent with activity with or without an assistive device 5 Patient requires set up or clean up by helper. Patient completes activity by themselves 4 Supervision or touching assist (CGA). [place] provide cues , steadying assist 3 The helper provides less than half the effort to complete the activity 2 The helper provides more than half the effort to complete the activity 1 Dependent. The helper does all the effort to complete an activity 7 Patient refused to complete or attempt activity 9 The patient did not perform the activity before the current illness or injury 88 Not attempted due to Medical conditions or safety concerns Scootin Rollin Roll Left to Right (QC): 4 Supine to/from Sit: 4 Sit to/from Stand: 5 Sit to Lying (QC): 4 Sit to Stand (QC): 5 Weight Bearing Right Lower Extremity: Right Full Weight Bearing Left Lower Extremity: Left Full Weight Bearing Gait Training Does the Patient Walk?: Yes Distance (FIM): 0=727-01 ft Distance: 75', 25' (x2 for both) Walk 10 feet (QC): 5 Walk 50 ft with 2 Turns(QC): 5 Gait Level of Assist: 5 Gait Persons Needed: 1 Gait Assistive Device: FWW Pt walks with kyphotic posture & slow wyatt. Pt says "ouch" continuously during transfers & ambulation. Wheelchair Training Does the Pt Use a Wheelchair?: No Exercises Supine Ex: Ankle pumps, Quad Set, Straight leg raise Supine Reps: 15 Seated Therapy Exercises: Ankle pumps, Long arc quads, Hip flexion, Kicking activity Seated Reps: 15 Treatments Pt completes Supine Ex in recliner with rest breaks. Pt transfers from recliner to standing at [facility]. Pt ambulates in hallway & [facility] using FWW at [facility]. Pt walks short distance due to fatigue. Pt returns to room to rest. Pt transfers to Supine in bed at Min-CGA to help lift BLE into bed. OUTPATIENT ADMITTING CLERK assists pt with scooting up in bed & positioning. Pt resting in bed at end of tx with all needs met, including call light in hand. Assessment Current Status: Good Progress Pt fatigues easily and reports pain in L hip & sacral area with transfers and WBing. PT Short Term Goals Short Term Goals Transfers (B,C,W/C) (FIM): 5 Wheelchair Distance: 150', 50' PT Retirement Goals Retirement Goals PT Electric Range Assembler Goals Time Frame: Mar 21, 2018 Transfers (B,C,W/C) (FIM): 6 Sit to Lying (QC): 6 Lying-Sitting on Side/Bed(QC): 6 Sit to Stand (QC): 6 Rollin Roll Left to Right (QC): 6 Chair/Xse-mw-Cpitf Xfer(QC): 6 Car Transfer (QC): 6 Does the Patient Walk: Yes Gait (FIM): 2 Gait distance (FIM): 7=628-74 ft Distance: 125' Walk 10 feet (QC): 5 Walk 10ft-Uneven Surface(QC): 5 Walk 50ft with 2 Turns (QC): 5 Walk 150 ft (QC): 9 Gait Level of Assist: 5 Gait Assistive Device: FWW Does the Pt use WC or Scooter?: Yes Wheelchair (FIM): 5 Wheelchair distance (FIM): 3=150 ft Distance: 150' Wheelchair Level of Assist: 5 Wheel 50 feet with 2 turns (QC: 5 Stairs (FIM): 2 # of Steps: 4 1 Step (curb) (QC): 5 4 Steps (QC): 5 12 Steps (QC): 9 Stairs Level Of Assist: 5 Picking up an Object (QC): 5 PT Plan Problem List Problem List: Activity Tolerance, Functional Strength, Safety, Gait, Transfer Treatment/Plan Treatment Plan: Continue Plan of Care Treatment Plan: Bed Mobility, Concurrent Therapy, Education, Functional Activity Vandana, Functional Strength, Group Therapy, Gait, Safety, Therapeutic Exercise, Transfers Treatment Duration: Mar 21, 2018 Frequency: At least 5 of 7 days/Wk (IRF) Estimated Hrs Per Day: 1.5 hours per day Patient and/or Family Agrees t: Yes Safety Risks/Education Patient Education: Gait Training, Transfer Techniques, Correct Positioning, Safety Issues Teaching Recipient: Patient Teaching Methods: Discussion Response to Teaching: Verbalize Understanding Time/GCodes Time In: 1045 Time Out: 1145 Total Billed Treatment Time: 60 Total Billed Treatment 1, FA (10m), GT x2 (30m) & EX (20m) G Codes Necessary: No PT/OT Therapy GCodes Functional Limitation-Current Modifier: CI Functional Limitation-Goal Modifier: CI RASHEEDA PEREZ OUTPATIENT ADMITTING CLERK Mar 12, 2018 11:56
--- NOTE | 2018-03-12 14:50 | Physical Therapy Daily Note ---
PT Daily Note-Current Subjective Pt laying in bed slightly R sidelying to stay off L hip due to pain. Pt agrees to PT but reports very tired. Pain Numeric Pain Scale: 3 Location: Left Location Body Site: Hip Pain Description: Ache Comment: Pt reports L hip & back pain. Mental Status Patient Orientation: Person, Place, Situation Attachments: Mclaughlin Catheter Transfers Functional [place] Measure 0=Not Assessed/NA 4=Minimal Assistance 1=Total Assistance 5=Supervision or Setup 2=Maximal Assistance 6=Modified [place] 3=Moderate Assistance 7=Complete IndependenceIRFPAI Quality Coding Scale 6 Independent with activity with or without an assistive device 5 Patient requires set up or clean up by helper. Patient completes activity by themselves 4 Supervision or touching assist (CGA). [place] provide cues , steadying assist 3 The helper provides less than half the effort to complete the activity 2 The helper provides more than half the effort to complete the activity 1 Dependent. The helper does all the effort to complete an activity 7 Patient refused to complete or attempt activity 9 The patient did not perform the activity before the current illness or injury 88 Not attempted due to Medical conditions or safety concerns Weight Bearing Right Lower Extremity: Right Full Weight Bearing Left Lower Extremity: Left Full Weight Bearing Exercises Supine Ex: Ankle pumps, Quad Set, Heel Slides, Straight leg raise, Hip abd/add Supine Reps: 15 Treatments Pt completes Supine Ex in bed with several rest breaks. Pt is difficult to keep awake during tx. Assessment Current Status: Fair Progress Pt fatigues easily & is difficult to keep awake. PT Short Term Goals Short Term Goals Transfers (B,C,W/C) (FIM): 5 Wheelchair Distance: 150', 50' PT Alf Goals Alf Goals PT Alf Goals Time Frame: Mar 21, 2018 Transfers (B,C,W/C) (FIM): 6 Sit to Lying (QC): 6 Lying-Sitting on Side/Bed(QC): 6 Sit to Stand (QC): 6 Rollin Roll Left to Right (QC): 6 Chair/Iif-ma-Zvqih Xfer(QC): 6 Car Transfer (QC): 6 Does the Patient Walk: Yes Gait (FIM): 2 Gait distance (FIM): 7=927-31 ft Distance: 125' Walk 10 feet (QC): 5 Walk 10ft-Uneven Surface(QC): 5 Walk 50ft with 2 Turns (QC): 5 Walk 150 ft (QC): 9 Gait Level of Assist: 5 Gait Assistive Device: FWW Does the Pt use WC or Scooter?: Yes Wheelchair (FIM): 5 Wheelchair distance (FIM): 3=150 ft Distance: 150' Wheelchair Level of Assist: 5 Wheel 50 feet with 2 turns (QC: 5 Stairs (FIM): 2 # of Steps: 4 1 Step (curb) (QC): 5 4 Steps (QC): 5 12 Steps (QC): 9 Stairs Level Of Assist: 5 Picking up an Object (QC): 5 PT Plan Problem List Problem List: Activity Tolerance, Functional Strength, Safety, Balance, Gait, Transfer Treatment/Plan Treatment Plan: Continue Plan of Care Treatment Plan: Bed Mobility, Concurrent Therapy, Education, Functional Activity Vandana, Functional Strength, Group Therapy, Gait, Safety, Therapeutic Exercise, Transfers Treatment Duration: Mar 21, 2018 Frequency: At least 5 of 7 days/Wk (IRF) Estimated Hrs Per Day: 1.5 hours per day Patient and/or Family Agrees t: Yes Safety Risks/Education Patient Education: Transfer Techniques, Correct Positioning, Safety Issues Teaching Recipient: Patient Teaching Methods: Discussion Response to Teaching: Verbalize Understanding Time/GCodes Time In: 1345 Time Out: 1415 Total Billed Treatment Time: 30 Total Billed Treatment 1, EX x2 (30m) G Codes Necessary: No PT/OT Therapy GCodes Functional Limitation-Current Modifier: CI Functional Limitation-Goal Modifier: RASHEEDA HARDY LACQUERER Mar 12, 2018 14:50
[2018-03-12 18:00] VITALS: BP 134/77
[2018-03-12] MEDS: SIMvastatin 40 MG (ZOCOR) TAB PO SCH (21:21)
[2018-03-12] MEDS: SERTRALINE 50 MG (ZOLOFT) TABLET PO SCH (21:21)
[2018-03-13 06:30] VITALS: BP 115/71
[2018-03-13] MEDS: PANTOPRAZOLE 40 MG (PROTONIX) TAB PO SCH ×2 (06:33→16:05)
[2018-03-13] MEDS: BETHANECHOL 25 MG (URECHOLINE) TAB PO SCH ×4 (06:33→20:06)
[2018-03-13] MEDS: VITAMIN D3 5,000 UNITS (CHOLECALCIFEROL ) CAPSULE PO SCH (06:33)
[2018-03-13] MEDS: ACETAMINOPHEN 500 MG TAB (TYLENOL) PO PRN ×2 (06:43→12:29)
--- NOTE | 2018-03-13 07:40 | Occupational Ther Daily Note ---
OT Current Status-Daily Note Subjective Pt alert, lying in bed. Pt agrees to therapy. C/o pain with movement, did not rate. Pt stated " I am grumpy today." Mental Status/Objective Patient Orientation: Person, Place, Time, Situation Functional [place] Measure 0=Not Assessed/NA 4=Minimal Assistance 1=Total Assistance 5=Supervision or Setup 2=Maximal Assistance 6=Modified [place] 3=Moderate Assistance 7=Complete [place] Attachments: Mclaughlin Catheter, IV ADL-Treatment Mod A to go from supine to EOB with HOB slightly raised. Pt ambulated to recliner with CGA using FWW, "ouching" with every step. After set up, pt able to use regular utensils to feed self. Pt agrees to sponge bath, declines shower. Pt initiated more of own bath. Washed face, upper body and bill area. Assist needed for buttocks. Mod A to don/doff shirt and dependent with donning/doffing socks. Mod A to get back into bed. Pt takes increased time to complete tasks due to slow movements and decreased attention span. After therapy, pt lying in bed with call light/phone in reach. All needs met in room. Functional [place] Measure 0=Not Assessed/NA 4=Minimal Assistance 1=Total Assistance 5=Supervision or Setup 2=Maximal Assistance 6=Modified [place] 3=Moderate Assistance 7=Complete IndependenceIRFPAI Quality Coding Scale 6 Independent with activity with or without an assistive device 5 Patient requires set up or clean up by helper. Patient completes activity by themselves 4 Supervision or touching assist (CGA). [place] provide cues , steadying assist 3 The helper provides less than half the effort to complete the activity 2 The helper provides more than half the effort to complete the activity 1 Dependent. The helper does all the effort to complete an activity 7 Patient refused to complete or attempt activity 9 The patient did not perform the activity before the current illness or injury 88 Not attempted due to Medical conditions or safety concerns Eating (FIM): 5 Eating (QC): 5 Bathing (FIM): 3 Bathing Location: L Arm, R Arm, Chest, Abdomen, Perineal Area Shower/Bathe Self (QC): 3 Upper Body (FIM): 3 Upper Body Dressing (QC): 3 On/Off Footwear (QC): 1 OT Short Term Goals Short Term Goals Time Frame: Mar 11, 2018 Eating(FIM): 5 Grooming(FIM): 4 Bathing(FIM): 4 Upper Body Dressing(FIM): 4 Lower Body Dressing(FIM): 3 Toileting(FIM): 4 Transfers (B,C,W/C) (FIM): 5 Toilet/Commode Transfer(FIM): 5 Shower Transfer(FIM): 4 Additional Short Term Goals: 1-Demonstrate ADL Tasks, 2-Verbalize Understanding , 3-ImproveStrength/Vandana 1=Demonstrate adherence to instructed precautions during ADL tasks. 2=Patient will verbalize/demonstrate understanding of assistive devices/ modifications for ADL. 3=Patient will improve strength/tolerance for activity to enable patient to perform ADL's. OT Correction Goals Correction Goals Time Frame: Mar 18, 2018 Eating (FIM): 6 Eating (QC): 6 Groomin Oral Hygiene (QC): 5 Bathing(FIM): 4 Shower/Bathe Self (QC): 4 Upper Body Dressing(FIM): 5 Upper Body Dressing (QC): 4 Lower Body Dressing(FIM): 4 Lower Body Dressing (QC): 4 On/Off Footwear (QC): 4 Toileting(FIM): 6 Toileting Hygiene (QC): 5 Transfers (B,C,W/C) (FIM): 5 Toilet/Commode Transfer(FIM): 5 Toilet/Commode Transfer (QC): 5 Shower Transfer(FIM): 5 Additional Goals: 1-Demonstrate ADL Tasks, 2-Verbalize Understanding, 3- ImproveStrength/Vandana 1=Demonstrate adherence to instructed precautions during ADL tasks. 2=Patient will verbalize/demonstrate understanding of assistive devices/ modifications for ADL. 3=Patient will improve strength/tolerance for activity to enable patient to perform ADL's. OT Education/Plan Discharge Recommendations Plan/Recommendations: Continue POC Treatment Plan/Plan of Care Patient would benefit from OT for education, treatment and training to promote independence in ADL's, mobility, safety and/or upper extremity function for ADL' s. Plan of Care: ADL Retraining, Functional Mobility, Group Exercise/Act as Ind, UE Funct Exercise/Act Treatment Duration: Mar 18, 2018 Frequency: At least 5 of 7 days/Wk (IRF) Estimated Hrs Per Day: 1.5 hours per day Agreement: Yes Rehab Potential: Fair Time/GCodes Start Time: 06:50 Stop Time: 08:20 Total Time Billed (hr/min): 90 Billed Treatment Time 1 visit-ADL 6 (90 min) PT/OT Therapy GCodes Functional Limitation-Current Modifier: CI Functional Limitation-Goal Modifier: IRWIN KOEHLER Mar 13, 2018 07:40
--- NOTE | 2018-03-13 08:00 | Progress Note (SOAP) ---
Subjective Time Seen by Provider: 07:45 Subjective/Events-last exam Patient to have his catheter taking out today. Patient still hurting. Patient doing more. Patient has a cardiac pacemaker Objective Exam Vital Signs Date Time Temp Pulse Resp B/P (MAP) Pulse Ox O2 Delivery O2 Flow Rate FiO2 03/13/18 06:30 98.1 64 20 115/71 (86) 95 Room Air 03/12/18 20:30 96 Room Air 03/12/18 18:00 98.6 65 18 134/77 (96) 96 Room Air 03/12/18 08:53 Room Air I & O 03/13/18 07:00 Intake Total 810 ml Output Total 775 ml Balance 35 ml Capillary Refill : Less Than 3 Seconds General Appearance: No Apparent Distress, Thin HEENT: Normal ENT Inspection Neck: Full Range of Motion, Normal Inspection Respiratory: Lungs Clear, No Accessory Muscle Use Cardiovascular: Regular Rate, Rhythm Results Lab Microbiology 03/03/18 Urine Culture - Final, Complete See Comments Assessment/Plan Assessment/Plan Assess & Plan/Chief Complaint Debility. Left sacral alar fracture. UTI. Hypotension. 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 . 03/13/18. Debility. Left sacral alar fracture. UTI. Previous CVA on left. Patient have his Mclaughlin catheter taken out today. Patient improving slowly Clinical Quality Measures DVT/VTE Risk/Contraindication: Risk Factor Score Per Nursin RFS Level Per Nursing on Admit: 4+=Very High NATHEN CARDENAS DO Mar 13, 2018 08:00
[2018-03-13] MEDS: ASPIRIN E.C. 81 MG (ECOTRIN) TAB PO SCH (08:41)
[2018-03-13] MEDS: SINEMET CR 50/200 (CARBIDOPA/LEVODOPA SA) TAB PO SCH ×2 (08:41→20:07)
[2018-03-13] MEDS: DIVALPROEX 250 MG DELAYED RELEASE (DEPAKOTE) TAB PO SCH ×2 (08:41→20:06)
[2018-03-13] MEDS: CALCITONIN NASAL 200 INTLU/AC (FORTICAL) 3.7 ML BTL NS SCH (08:44)
--- NOTE | 2018-03-13 09:38 | Physical Therapy Daily Note ---
PT Daily Note-Current Subjective Pt laying Supine in bed upon arrival. Pt agrees to PT. Pain Numeric Pain Scale: 3 Location: Left Location Body Site: Hip Pain Description: Ache Comment: Pt reports L hip & sacrum pain. Mental Status Patient Orientation: Person, Place, Situation Attachments: Mclaughlin Catheter Transfers Functional [place] Measure 0=Not Assessed/NA 4=Minimal Assistance 1=Total Assistance 5=Supervision or Setup 2=Maximal Assistance 6=Modified [place] 3=Moderate Assistance 7=Complete IndependenceIRFPAI Quality Coding Scale 6 Independent with activity with or without an assistive device 5 Patient requires set up or clean up by helper. Patient completes activity by themselves 4 Supervision or touching assist (CGA). [place] provide cues , steadying assist 3 The helper provides less than half the effort to complete the activity 2 The helper provides more than half the effort to complete the activity 1 Dependent. The helper does all the effort to complete an activity 7 Patient refused to complete or attempt activity 9 The patient did not perform the activity before the current illness or injury 88 Not attempted due to Medical conditions or safety concerns Scootin Rollin Roll Left to Right (QC): 5 Supine to/from Sit: 5 Sit to/from Stand: 5 Sit to Lying (QC): 5 Sit to Stand (QC): 5 Car Transfer (QC): 5 Weight Bearing Right Lower Extremity: Right Full Weight Bearing Left Lower Extremity: Left Full Weight Bearing Gait Training Does the Patient Walk?: Yes Distance (FIM): 1=343-38 ft Distance: 60' x2 Walk 10 feet (QC): 5 Walk 50 ft with 2 Turns(QC): 5 Gait Level of Assist: 5 Gait Persons Needed: 1 Gait Assistive Device: FWW Pt walks with a slow wyatt and reports discomfort through UE due to not WB as much through LE. PERFORMANCE ANALYST encouraged more WB through LE while ambulating. Wheelchair Training Does the Pt Use a Wheelchair?: No Exercises Seated Therapy Exercises: Ankle pumps, Long arc quads, Hip flexion, Kicking activity Seated Reps: 20 Treatments Pt transfers from Supine to EOB at SBA with FOB lowered. Pt rests at EOB and receives morning meds from Nurse. Pt then transfers from EOB to Standing using FWW at SBA. Pt ambulates in [facility] & Therapy [facility] using FWW at SBA. Pt rests in chair due to fatigue then completes Seated Ex in chair. Pt completes car transfer at [facility]. Pt returns to room to use restroom then transfers to Supine in bed. Pt is positioned to R sidelying. Pt has all needs met at end of tx, including call light in hand. Assessment Current Status: Good Progress Pt reports pain in L hip & sacrum during tx. Pt fatigues easily, walking short distances, needing rest break. PT Short Term Goals Short Term Goals Transfers (B,C,W/C) (FIM): 5 Wheelchair Distance: 150', 50' PT Longterm Goals Longterm Goals PT Longterm Goals Time Frame: Mar 21, 2018 Transfers (B,C,W/C) (FIM): 6 Sit to Lying (QC): 6 Lying-Sitting on Side/Bed(QC): 6 Sit to Stand (QC): 6 Rollin Roll Left to Right (QC): 6 Chair/Okq-gd-Cfoaq Xfer(QC): 6 Car Transfer (QC): 6 Does the Patient Walk: Yes Gait (FIM): 2 Gait distance (FIM): 0=660-71 ft Distance: 125' Walk 10 feet (QC): 5 Walk 10ft-Uneven Surface(QC): 5 Walk 50ft with 2 Turns (QC): 5 Walk 150 ft (QC): 9 Gait Level of Assist: 5 Gait Assistive Device: FWW Does the Pt use WC or Scooter?: Yes Wheelchair (FIM): 5 Wheelchair distance (FIM): 3=150 ft Distance: 150' Wheelchair Level of Assist: 5 Wheel 50 feet with 2 turns (QC: 5 Stairs (FIM): 2 # of Steps: 4 1 Step (curb) (QC): 5 4 Steps (QC): 5 12 Steps (QC): 9 Stairs Level Of Assist: 5 Picking up an Object (QC): 5 PT Plan Problem List Problem List: Activity Tolerance, Functional Strength, Gait Treatment/Plan Treatment Plan: Continue Plan of Care Treatment Plan: Bed Mobility, Concurrent Therapy, Education, Functional Activity Vandana, Functional Strength, Group Therapy, Gait, Safety, Therapeutic Exercise, Transfers Treatment Duration: Mar 21, 2018 Frequency: At least 5 of 7 days/Wk (IRF) Estimated Hrs Per Day: 1.5 hours per day Patient and/or Family Agrees t: Yes Safety Risks/Education Patient Education: Gait Training, Correct Positioning, Safety Issues Teaching Recipient: Patient Teaching Methods: Discussion Response to Teaching: Verbalize Understanding Time/GCodes Time In: 820 Time Out: 920 Total Billed Treatment 1, GT x2 (25m), FA (15m), EX (20m) G Codes Necessary: No PT/OT Therapy GCodes Functional Limitation-Current Modifier: CI Functional Limitation-Goal Modifier: RASHEEDA HARDY PERFORMANCE ANALYST Mar 13, 2018 09:38
[2018-03-13 10:04] LABS: CLARITY,URINE CLEAR; COLOR,URINE YELLOW; GLUCOSE, URINE (UA) NEGATIVE (NEGATIVE); KETONES,URINE NEGATIVE (NEGATIVE); LEUKOCYTE ESTERASE ,URINE NEGATIVE (NEGATIVE); NITRITE,URINE NEGATIVE (NEGATIVE); PH,URINE 6 (5-9); PROTEIN,URINE 2+ (NEGATIVE); UROBILINOGEN,URINE 1 MG/DL (NORMAL)
[2018-03-13 10:09] LABS: BACTERIA,URINE NEGATIVE /HPF; BILIRUBIN,URINE 1+ (NEGATIVE); WBC,URINE 0-2 /HPF
[2018-03-13] MEDS: SILVER SULFADIAZINE 50 GM CREAM TOP SCH (10:10)
--- NOTE | 2018-03-13 11:50 | Progress Note-Urology ---
Progress Note-Urology Progress Notes/Assess & Plan Progress/Assessment & Plan TOV AGAIN TODAY. TOLERATED URECHOLINE 25 QID AC AND HS Final Diagnosis URINE RETENTION UMER BAUTISTA MD Mar 13, 2018 11:50 am
--- NOTE | 2018-03-13 14:31 | Therapy Group Daily Note ---
Therapy Daily Group Note Patient Education Topic Home Safety, Fall Prevention, Other List Below (walking safety and assistive devices) Exercises LE Seated Exercise Other/Notes Pt. participated in group therapy this date. Pt. came and went ambulating with FWW min to CGA. Pt. required CGA for TRFs in out bed. Pt. was very social and enjoyed meeting and sharing with others. Pts. were reviewed on the particulars of rehab unit ie 3 hr requirement as well as goals etc. Pts. participated in memory activity, establishing 4 words from categories and retaining them until the completion of the 1 hr group. Pts were shown demonstration of various types of assistive devices for walking and how these improve the quality and safety of gait. Pts. all participated in seated LE ther ex . Pt. assisted to room after group with min assist to bed ,call mendoza in hand. Start Time: 13:00 Stop Time: 14:00 Total Billed Treatment Time: 60 Total Billed Treatment 1,GRP ISABELLA MEEKS GOVERNMENT SERVICE EXECUTIVE Mar 13, 2018 14:31
[2018-03-13 18:20] VITALS: BP 109/71
[2018-03-13] MEDS: SERTRALINE 50 MG (ZOLOFT) TABLET PO SCH (20:06)
[2018-03-13] MEDS: SIMvastatin 40 MG (ZOCOR) TAB PO SCH (20:06)
[2018-03-13] MEDS ORDERED: LIDOCAINE UROJET 2% GEL 10 ML PKG ONE (21:25)
[2018-03-14] MEDS: BETHANECHOL 25 MG (URECHOLINE) TAB PO SCH ×4 (06:26→21:03)
[2018-03-14] MEDS: VITAMIN D3 5,000 UNITS (CHOLECALCIFEROL ) CAPSULE PO SCH (06:26)
[2018-03-14] MEDS: PANTOPRAZOLE 40 MG (PROTONIX) TAB PO SCH ×2 (06:26→17:47)
[2018-03-14] MEDS: ACETAMINOPHEN 500 MG TAB (TYLENOL) PO PRN ×3 (06:27→17:47)
[2018-03-14 06:36] VITALS: BP 146/68
--- NOTE | 2018-03-14 08:10 | PM & R (SOAP) Progress Note ---
Subjective This was a face to face visit with the patient. Date Seen by Provider: Mar 14, 2018 Time Seen by Provider: 07:55 Subjective/Events-last exam Patient was seen in his room with OT Patient doing morning adls.Patient SBA for transfers. Appreciate DR Kelly note .Patient failed TOV and catheter now in to stretch urethra to assist with resolving urinary retention Discharge is tentativeley set for Saturday03-16-18 but uncertain if will be cleared by urology by then .will f/u with staff Review of Systems Genitourinary: Retention Objective Physician Exam Last Set of Vital Signs Vital Signs Date Time Temp Pulse Resp B/P (MAP) Pulse Ox O2 Delivery O2 Flow Rate FiO2 03/14/18 06:36 97.4 58 18 146/68 (94) 95 Room Air Capillary Refill : Less Than 3 Seconds I&O Intake and Output 03/14/18 00:00 Intake Total 900 ml Output Total 625 ml Balance 275 ml Intake Oral 900 ml Output Urine Total 625 ml Bladder Scan Volume Amount 161 ml 264 ml General: Alert, Oriented X3, Cooperative, No Acute Distress HEENT: Atraumatic, PERRLA, EOMI, Mucous Memb Moist/[place] Neck: Supple, No JVD Lungs: Clear to Auscultation Heart: Regular Rate, Other (well healed pacemaker incision site) Abdomen: Normal Bowel Sounds, Soft, No Tenderness Extremities: No Edema Neuro: Other (Left HP parkinsons gait) Other physical findings Mclaughlin catheter to DD Results Lab Data Laboratory Tests 03/13/18 09:30: Urine Color YELLOW, Urine Clarity CLEAR, Urine pH 6, Urine Specific [place] 1.015L, Urine Protein 2+H, Urine Glucose (UA) NEGATIVE, Urine Ketones NEGATIVE, Urine Nitrite NEGATIVE, Urine Bilirubin 1+H, Urine Urobilinogen 1, Urine Leukocyte Esterase NEGATIVE, Urine RBC (Auto) 4+H, Urine RBC 2-5H, Urine WBC 0-2 , Urine Squamous Epithelial Cells NONE, Urine Crystals NONE, Urine Bacteria NEGATIVE, Urine Casts NONE, Urine Mucus NEGATIVE, Urine Culture Indicated NO Microbiology 03/03/18 Urine Culture - Final, Complete See Comments Xray/Imaging Left sacral ala fracture s/p fall with pain improved mobilizing well [place] on med 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
--- NOTE | 2018-03-14 08:33 | Occupational Ther Daily Note ---
OT Current Status-Daily Note Subjective Pt alert, lying in bed. Pt requires encouragement to participate in therapy due to increased pain caused by catheter. Mental Status/Objective Patient Orientation: Person, Place, Time, Situation Functional [place] Measure 0=Not Assessed/NA 4=Minimal Assistance 1=Total Assistance 5=Supervision or Setup 2=Maximal Assistance 6=Modified [place] 3=Moderate Assistance 7=Complete [place] Attachments: IV ADL-Treatment Functional [place] Measure 0=Not Assessed/NA 4=Minimal Assistance 1=Total Assistance 5=Supervision or Setup 2=Maximal Assistance 6=Modified [place] 3=Moderate Assistance 7=Complete IndependenceIRFPAI Quality Coding Scale 6 Independent with activity with or without an assistive device 5 Patient requires set up or clean up by helper. Patient completes activity by themselves 4 Supervision or touching assist (CGA). [place] provide cues , steadying assist 3 The helper provides less than half the effort to complete the activity 2 The helper provides more than half the effort to complete the activity 1 Dependent. The helper does all the effort to complete an activity 7 Patient refused to complete or attempt activity 9 The patient did not perform the activity before the current illness or injury 88 Not attempted due to Medical conditions or safety concerns Eating (FIM): 5 (Set up. Pt able to use regular utensils to feed self.) Eating (QC): 5 Grooming (FIM): 5 (SBA standing at sink to complete grooming.) Oral Hygiene (QC): 4 Bathing (FIM): 4 (Using shower bench, long handle sponge, hand held shower and grabbars pt able to complete all areas except buttocks.) Bathing Location: L Arm, R Arm, L Upper Leg, R Upper Leg, L Lower Leg ( including foot), R Lower Leg (including foot), Chest, Abdomen, Perineal Area Shower/Bathe Self (QC): 3 Upper Body (FIM): 3 (Pt requires set up then is able to place hands in sleeves , assist to thread arms into sleeves and place hand in appropriate place to push over head. Assist to pull down back.) Upper Body Dressing (QC): 2 Lower Body Dressing (FIM): 2 (Assist to don/doff socks. Pt able to place feet into pant legs then assist to pull up legs and hike over hips.) Lower Body Dressing (QC): 2 On/Off Footwear (QC): 2 Toileting (FIM): 2 (Assist to hike pants up and down hips and assist to cleanse buttocks. Pt has chase catheter.) Toileting Hygiene (QC): 2 Transfers (B, C, W/C) (FIM): 4 (CGA using FWW. Pt does take increased time to motor plan movement.) Toilet/Commode Transfer (FIM): 4 (Using grabbars and FWW.) Toilet Transfer (QC): 3 Shower Transfer(FIM): 4 (Using FWW, shower bench and grabbars.) Pt would allow total assistance during ADLs if not encouraged to complete as much as possible by self. After therapy, pt lying in bed with call light/phone in reach. All needs met in room. OT Short Term Goals Short Term Goals Time Frame: Mar 11, 2018 Eating(FIM): 5 Grooming(FIM): 4 Bathing(FIM): 4 Upper Body Dressing(FIM): 4 Lower Body Dressing(FIM): 3 Toileting(FIM): 4 Transfers (B,C,W/C) (FIM): 5 Toilet/Commode Transfer(FIM): 5 Shower Transfer(FIM): 4 Additional Short Term Goals: 1-Demonstrate ADL Tasks, 2-Verbalize Understanding , 3-ImproveStrength/Vandana 1=Demonstrate adherence to instructed precautions during ADL tasks. 2=Patient will verbalize/demonstrate understanding of assistive devices/ modifications for ADL. 3=Patient will improve strength/tolerance for activity to enable patient to perform ADL's. OT Long-Term Goals Filer Finish Goals Time Frame: Mar 18, 2018 Eating (FIM): 6 (not met-03/14/2018) Eating (QC): 6 (not met-03/14/2018) Groomin (met-03/14/2018) Oral Hygiene (QC): 5 (not met-03/14/2018) Bathing(FIM): 4 (met-03/14/2018) Shower/Bathe Self (QC): 4 (not met-03/14/2018) Upper Body Dressing(FIM): 5 (not met-03/14/2018) Upper Body Dressing (QC): 4 (not met-03/14/2018) Lower Body Dressing(FIM): 4 (not met-03/14/2018) Lower Body Dressing (QC): 4 (not met-03/14/2018) On/Off Footwear (QC): 4 (not met-03/14/2018) Toileting(FIM): 6 (not met-03/14/2018) Toileting Hygiene (QC): 5 (not met-03/14/2018) Transfers (B,C,W/C) (FIM): 5 (not met-03/14/2018) Toilet/Commode Transfer(FIM): 5 (not met-03/14/2018) Toilet/Commode Transfer (QC): 5 (not met-03/14/2018) Shower Transfer(FIM): 5 (not met-03/14/2018) Additional Goals: 1-Demonstrate ADL Tasks, 2-Verbalize Understanding, 3- ImproveStrength/Vandana 1=Demonstrate adherence to instructed precautions during ADL tasks. 2=Patient will verbalize/demonstrate understanding of assistive devices/ modifications for ADL. 3=Patient will improve strength/tolerance for activity to enable patient to perform ADL's. OT Education/Plan Discharge Recommendations Plan/Recommendations: Continue POC Treatment Plan/Plan of Care Patient would benefit from OT for education, treatment and training to promote independence in ADL's, mobility, safety and/or upper extremity function for ADL' s. Plan of Care: ADL Retraining, Functional Mobility, Group Exercise/Act as Ind, UE Funct Exercise/Act Treatment Duration: Mar 18, 2018 Frequency: At least 5 of 7 days/Wk (IRF) Estimated Hrs Per Day: 1.5 hours per day Agreement: Yes Rehab Potential: Fair Time/GCodes Start Time: 07:00 Stop Time: 08:30 Total Time Billed (hr/min): 90 Billed Treatment Time 1 visit-ADL 6 (90 min) PT/OT Therapy GCodes Functional Limitation-Current Modifier: CI Functional Limitation-Goal Modifier: IRWIN KOEHLER Mar 14, 2018 08:33
[2018-03-14] MEDS: CALCITONIN NASAL 200 INTLU/AC (FORTICAL) 3.7 ML BTL NS SCH (08:52)
[2018-03-14] MEDS: ASPIRIN E.C. 81 MG (ECOTRIN) TAB PO SCH (08:54)
[2018-03-14] MEDS: DIVALPROEX 250 MG DELAYED RELEASE (DEPAKOTE) TAB PO SCH ×2 (08:54→21:03)
[2018-03-14] MEDS: SINEMET CR 50/200 (CARBIDOPA/LEVODOPA SA) TAB PO SCH ×2 (08:55→21:03)
[2018-03-14] MEDS: SILVER SULFADIAZINE 50 GM CREAM TOP SCH (08:57)
--- NOTE | 2018-03-14 09:20 | Progress Note-Urology ---
Progress Note-Urology Progress Notes/Assess & Plan Progress/Assessment & Plan 20FR BRAVO INSERTED YESTERDAY WITH SOME DIFFICULTY FROM BNC. DRAINING WELL. URINE CLEAR. PLAN INCREASE URECHOLINE TO 50MG AC AND HS AND LEAVE BRAVO FOR 2 DAYS AND RETRY TOV. Final Diagnosis URINE RETENTION, BNC AND NEUROGENIC BLADDER UMER BAUTISTA MD Mar 14, 2018 9:20 am
--- NOTE | 2018-03-14 11:03 | Physical Therapy Daily Note ---
PT Daily Note-Current Subjective Pt. in bed very groggy and resists Rx but does with encouragement. States his hip still hurts as well as now his penis where he suspects it is b/c they have inserted and taken out so many chase catheters. Pain Numeric Pain Scale: 4 Location Body Site: Sacrum Pain Description: Pressure Mental Status Patient Orientation: Person, Place, Time, Situation Attachments: [place] Catheter Transfers Functional [place] Measure 0=Not Assessed/NA 4=Minimal Assistance 1=Total Assistance 5=Supervision or Setup 2=Maximal Assistance 6=Modified [place] 3=Moderate Assistance 7=Complete IndependenceIRFPAI Quality Coding Scale 6 Independent with activity with or without an assistive device 5 Patient requires set up or clean up by helper. Patient completes activity by themselves 4 Supervision or touching assist (CGA). [place] provide cues , steadying assist 3 The helper provides less than half the effort to complete the activity 2 The helper provides more than half the effort to complete the activity 1 Dependent. The helper does all the effort to complete an activity 7 Patient refused to complete or attempt activity 9 The patient did not perform the activity before the current illness or injury 88 Not attempted due to Medical conditions or safety concerns Transfers (B, C, W/C) (FIM): 5 Scootin Rollin Roll Left to Right (QC): 5 Supine to/from Sit: 5 Sit to/from Stand: 5 Sit to Lying (QC): 5 Sit to Stand (QC): 5 Chair/Ymd-xt-Qkfaz Xfer(QC): 5 Bed to/from Chair: 5 Car Transfer (QC): 5 Weight Bearing Right Lower Extremity: Right Full Weight Bearing Left Lower Extremity: Left Full Weight Bearing Gait Training Does the Patient Walk?: Yes Gait (FIM): 2 Gait Assistive Device: FWW slow, many standing rest breaks Stair Training Stair Training: Handrails/: 2 handrails Stairs (FIM): 2 #of Steps: 4 Stairs: Pattern: Step to Level of Assist: 3 instruction each step for sequence and left hand affixed to rail Exercises Supine Ex: Ankle pumps, Quad Set, Heel Slides, Short Arc Quads, Straight leg raise, Hip abd/add Supine Reps: 15 Assessment Current Status: Good Progress pt. limited this date mostly secondary to pain, resists participation PT Short Term Goals Short Term Goals Transfers (B,C,W/C) (FIM): 5 Wheelchair Distance: 150', 50' PT Prison Goals [place] Goals PT [place] Goals Time Frame: Mar 21, 2018 Transfers (B,C,W/C) (FIM): 6 Sit to Lying (QC): 6 Lying-Sitting on Side/Bed(QC): 6 Sit to Stand (QC): 6 Rollin Roll Left to Right (QC): 6 Chair/Mbl-li-Bvawg Xfer(QC): 6 Car Transfer (QC): 6 Does the Patient Walk: Yes Gait (FIM): 2 Gait distance (FIM): 0=023-88 ft Distance: 125' Walk 10 feet (QC): 5 Walk 10ft-Uneven Surface(QC): 5 Walk 50ft with 2 Turns (QC): 5 Walk 150 ft (QC): 9 Gait Level of Assist: 5 Gait Assistive Device: FWW Does the Pt use WC or Scooter?: Yes Wheelchair (FIM): 5 Wheelchair distance (FIM): 3=150 ft Distance: 150' Wheelchair Level of Assist: 5 Wheel 50 feet with 2 turns (QC: 5 Stairs (FIM): 2 # of Steps: 4 1 Step (curb) (QC): 5 4 Steps (QC): 5 12 Steps (QC): 9 Stairs Level Of Assist: 5 Picking up an Object (QC): 5 PT Plan Treatment/Plan Treatment Plan: Continue Plan of Care Treatment Plan: Bed Mobility, Concurrent Therapy, Education, Functional Activity Vandana, Functional Strength, Group Therapy, Gait, Safety, Therapeutic Exercise, Transfers Treatment Duration: Mar 21, 2018 Frequency: At least 5 of 7 days/Wk (IRF) Estimated Hrs Per Day: 1.5 hours per day Patient and/or Family Agrees t: Yes Safety Risks/Education Patient Education: Gait Training, Transfer Techniques, Steps, Correct Positioning, Disease Process, Safety Issues Teaching Recipient: Patient Teaching Methods: Demonstration, Discussion Response to Teaching: Verbalize Understanding, Return Demonstration, Reinforcement Needed Time/GCodes Time In: 1000 Time Out: 1100 Total Billed Treatment Time: 60 Total Billed Treatment 1,GT25m,FA35m G Codes Necessary: No PT/OT Therapy GCodes Functional Limitation-Current Modifier: CI Functional Limitation-Goal Modifier: CI ISABELLA MEEKS MANAGER PUBLIC Mar 14, 2018 11:03
--- NOTE | 2018-03-14 15:02 | Therapy Group Daily Note ---
Therapy Daily Group Note Patient Education Topic Other List Below (Memory: Long and short term and strategies for recall) Exercises LE Seated Exercise, UE Exercise Other/Notes Pt. participated in group PT OT session this date. Pt. ambulated to from with FWW and SBA. Pts. were educated/reviewed on ARU practices and expectations. Education regarding long and short term memory was done and patients all shared their most significant memory of a historical event. Pts. all participated in seated U&L extremity exercises. A fun, engaging memory activity was enjoyed by all whereby memorizing and matching images was the focus. The importance of sleep and good rest habits was also a topic of education . Pt. to room after Rx with assist for toileting. in bed after with mendoza at hand. Start Time: 13:00 Stop Time: 14:30 Total Billed Treatment Time: 90 Total Billed Treatment 1,GRP ISABELLA MEEKS SCREW MACHINE HAND Mar 14, 2018 15:02
[2018-03-14 18:00] VITALS: BP 113/76
[2018-03-14] MEDS: SIMvastatin 40 MG (ZOCOR) TAB PO SCH (21:03)
[2018-03-14] MEDS: SERTRALINE 50 MG (ZOLOFT) TABLET PO SCH (21:03)
[2018-03-15] MEDS: ACETAMINOPHEN 500 MG TAB (TYLENOL) PO PRN ×3 (00:13→18:22)
[2018-03-15 06:18] VITALS: BP 121/75
[2018-03-15] MEDS: PANTOPRAZOLE 40 MG (PROTONIX) TAB PO SCH ×2 (06:40→16:29)
[2018-03-15] MEDS: BETHANECHOL 25 MG (URECHOLINE) TAB PO SCH ×4 (06:40→20:43)
[2018-03-15] MEDS: VITAMIN D3 5,000 UNITS (CHOLECALCIFEROL ) CAPSULE PO SCH (06:40)
[2018-03-15] MEDS: ASPIRIN E.C. 81 MG (ECOTRIN) TAB PO SCH (07:43)
[2018-03-15] MEDS: DIVALPROEX 250 MG DELAYED RELEASE (DEPAKOTE) TAB PO SCH ×2 (07:43→20:43)
[2018-03-15] MEDS: SINEMET CR 50/200 (CARBIDOPA/LEVODOPA SA) TAB PO SCH ×2 (07:44→20:43)
[2018-03-15] MEDS: CALCITONIN NASAL 200 INTLU/AC (FORTICAL) 3.7 ML BTL NS SCH (07:44)
[2018-03-15] MEDS: SILVER SULFADIAZINE 50 GM CREAM TOP SCH (07:44)
--- NOTE | 2018-03-15 08:21 | PM & R (SOAP) Progress Note ---
Subjective This was a face to face visit with the patient. Date Seen by Provider: Mar 15, 2018 Time Seen by Provider: 07:35 Subjective/Events-last exam Patient was seen in his room this AM Patient SBA for transfers Mclaughlin back in due to urinary retention DR Cruz has adjusted meds further for another trila of voiding with discharge postponed til Saturday03-18-18 as per SW and due to above issue.Othewise doing quite well with therapies Review of Systems Genitourinary: Retention Objective Physician Exam Last Set of Vital Signs Vital Signs Date Time Temp Pulse Resp B/P (MAP) Pulse Ox O2 Delivery O2 Flow Rate FiO2 03/15/18 06:18 97.0 58 20 121/75 (90) 93 Room Air Capillary Refill : Less Than 3 Seconds I&O Intake and Output 03/15/18 00:00 Intake Total 790 ml Output Total 1000 ml Balance -210 ml Intake Oral 790 ml Output Urine Total 1000 ml General: Alert, Oriented X3, Cooperative, No Acute Distress HEENT: Atraumatic, PERRLA, EOMI, Mucous Memb Moist/[place] Neck: Supple, No JVD Lungs: Clear to Auscultation Heart: Regular Rate, Other (well healed pacemaker incision site) Abdomen: Normal Bowel Sounds, Soft, No Tenderness Extremities: No Edema Neuro: Other (Left HP parkinsons gait) Other physical findings Mclaughlin catheter to DD Results Lab Data Laboratory Tests 03/13/18 09:30: Urine Color YELLOW, Urine Clarity CLEAR, Urine pH 6, Urine Specific [place] 1.015L, Urine Protein 2+H, Urine Glucose (UA) NEGATIVE, Urine Ketones NEGATIVE, Urine Nitrite NEGATIVE, Urine Bilirubin 1+H, Urine Urobilinogen 1, Urine Leukocyte Esterase NEGATIVE, Urine RBC (Auto) 4+H, Urine RBC 2-5H, Urine WBC 0-2 , Urine Squamous Epithelial Cells NONE, Urine Crystals NONE, Urine Bacteria NEGATIVE, Urine Casts NONE, Urine Mucus NEGATIVE, Urine Culture Indicated NO Microbiology 03/03/18 Urine Culture - Final, Complete See Comments Xray/Imaging Left sacral ala fracture s/p fall with pain improved [place] on med Old rt CVa with L HP Chronic constipation HTN with hypotension improved with fluids Depression controlled with med urinary retention s/p cysto DR Cruz managing Plan Continue PT/OT F/U with DR Cruz and na Another trila of voiding next week Discharge has been changed to next Saturday tentatively Assessment/Plan Assessment and Plan As per above Co-Morbidities that are continuing to impact the rehab process: (include details ) STEPHANIA DORSEY MD Mar 15, 2018 08:21
--- NOTE | 2018-03-15 10:31 | Progress Note-Urology ---
Progress Note-Urology Progress Notes/Assess & Plan Progress/Assessment & Plan TOV SATURDAY Final Diagnosis URINE RETENTION UMER BAUTISTA MD Mar 15, 2018 10:31 am
--- NOTE | 2018-03-15 12:05 | Physical Therapy Daily Note ---
PT Daily Note-Current Subjective Pt. in bed eyes closed, awakens when approached. Pt. declines Rx x 2 attempts. Educated pt. on importance of activity for his health and progress. Pt. declined x 2. Transfers Functional [place] Measure 0=Not Assessed/NA 4=Minimal Assistance 1=Total Assistance 5=Supervision or Setup 2=Maximal Assistance 6=Modified [place] 3=Moderate Assistance 7=Complete IndependenceIRFPAI Quality Coding Scale 6 Independent with activity with or without an assistive device 5 Patient requires set up or clean up by helper. Patient completes activity by themselves 4 Supervision or touching assist (CGA). [place] provide cues , steadying assist 3 The helper provides less than half the effort to complete the activity 2 The helper provides more than half the effort to complete the activity 1 Dependent. The helper does all the effort to complete an activity 7 Patient refused to complete or attempt activity 9 The patient did not perform the activity before the current illness or injury 88 Not attempted due to Medical conditions or safety concerns Weight Bearing Right Lower Extremity: Right Full Weight Bearing Left Lower Extremity: Left Full Weight Bearing Assessment Current Status: Refused Treatment PT Short Term Goals Short Term Goals Transfers (B,C,W/C) (FIM): 5 Wheelchair Distance: 150', 50' PT Detention Goals Superintendent Logging Goals PT Superintendent Logging Goals Time Frame: Mar 21, 2018 Transfers (B,C,W/C) (FIM): 6 Sit to Lying (QC): 6 Lying-Sitting on Side/Bed(QC): 6 Sit to Stand (QC): 6 Rollin Roll Left to Right (QC): 6 Chair/Pej-dt-Sjbxy Xfer(QC): 6 Car Transfer (QC): 6 Does the Patient Walk: Yes Gait (FIM): 2 Gait distance (FIM): 0=043-45 ft Distance: 125' Walk 10 feet (QC): 5 Walk 10ft-Uneven Surface(QC): 5 Walk 50ft with 2 Turns (QC): 5 Walk 150 ft (QC): 9 Gait Level of Assist: 5 Gait Assistive Device: FWW Does the Pt use WC or Scooter?: Yes Wheelchair (FIM): 5 Wheelchair distance (FIM): 3=150 ft Distance: 150' Wheelchair Level of Assist: 5 Wheel 50 feet with 2 turns (QC: 5 Stairs (FIM): 2 # of Steps: 4 1 Step (curb) (QC): 5 4 Steps (QC): 5 12 Steps (QC): 9 Stairs Level Of Assist: 5 Picking up an Object (QC): 5 PT Plan Treatment/Plan Treatment Plan: Continue Plan of Care Treatment Plan: Bed Mobility, Concurrent Therapy, Education, Functional Activity Vandana, Functional Strength, Group Therapy, Gait, Safety, Therapeutic Exercise, Transfers Treatment Duration: Mar 21, 2018 Frequency: At least 5 of 7 days/Wk (IRF) Estimated Hrs Per Day: 1.5 hours per day Patient and/or Family Agrees t: Yes Time/GCodes Time In: 1150 Time Out: 1155 Total Billed Treatment Time: 0 Total Billed Treatment 1,no Rx, no chg G Codes Necessary: No PT/OT Therapy GCodes Functional Limitation-Current Modifier: CATY Functional Limitation-Goal Modifier: ISABELLA TEIXEIRA STATE ATTORNEY Mar 15, 2018 12:05
[2018-03-15 17:49] VITALS: BP 118/73
[2018-03-15] MEDS: SIMvastatin 40 MG (ZOCOR) TAB PO SCH (20:43)
[2018-03-15] MEDS: SERTRALINE 50 MG (ZOLOFT) TABLET PO SCH (20:43)
[2018-03-16] MEDS: ACETAMINOPHEN 500 MG TAB (TYLENOL) PO PRN ×4 (00:23→20:48)
[2018-03-16 05:57] VITALS: BP 127/79
[2018-03-16] MEDS: VITAMIN D3 5,000 UNITS (CHOLECALCIFEROL ) CAPSULE PO SCH (06:42)
[2018-03-16] MEDS: BETHANECHOL 25 MG (URECHOLINE) TAB PO SCH ×4 (06:42→20:48)
[2018-03-16] MEDS: PANTOPRAZOLE 40 MG (PROTONIX) TAB PO SCH ×2 (06:42→16:44)
[2018-03-16] MEDS: ASPIRIN E.C. 81 MG (ECOTRIN) TAB PO SCH (08:31)
[2018-03-16] MEDS: CALCITONIN NASAL 200 INTLU/AC (FORTICAL) 3.7 ML BTL NS SCH (08:31)
[2018-03-16] MEDS: SINEMET CR 50/200 (CARBIDOPA/LEVODOPA SA) TAB PO SCH ×2 (08:31→20:47)
[2018-03-16] MEDS: DIVALPROEX 250 MG DELAYED RELEASE (DEPAKOTE) TAB PO SCH ×2 (08:31→20:47)
[2018-03-16] MEDS: SILVER SULFADIAZINE 50 GM CREAM TOP SCH (08:32)
[2018-03-16 16:46] VITALS: BP 118/71
[2018-03-16] MEDS: SIMvastatin 40 MG (ZOCOR) TAB PO SCH (20:47)
[2018-03-16] MEDS: SERTRALINE 50 MG (ZOLOFT) TABLET PO SCH (20:48)
[2018-03-17] MEDS: ACETAMINOPHEN 500 MG TAB (TYLENOL) PO PRN ×3 (01:03→20:55)
[2018-03-17 05:42] VITALS: BP 114/72
[2018-03-17] MEDS: BETHANECHOL 25 MG (URECHOLINE) TAB PO SCH ×4 (06:27→20:55)
[2018-03-17] MEDS: PANTOPRAZOLE 40 MG (PROTONIX) TAB PO SCH ×2 (06:28→17:56)
[2018-03-17] MEDS: VITAMIN D3 5,000 UNITS (CHOLECALCIFEROL ) CAPSULE PO SCH (06:28)
--- NOTE | 2018-03-17 07:27 | Occupational Ther Daily Note ---
OT Current Status-Daily Note Subjective Pt alert, lying in bed. Pt agrees to therapy. No c/o pain at this time. Mental Status/Objective Patient Orientation: Person, Place, Time, Situation Functional [place] Measure 0=Not Assessed/NA 4=Minimal Assistance 1=Total Assistance 5=Supervision or Setup 2=Maximal Assistance 6=Modified [place] 3=Moderate Assistance 7=Complete [place] Attachments: Chase Catheter, IV ADL-Treatment Functional [place] Measure 0=Not Assessed/NA 4=Minimal Assistance 1=Total Assistance 5=Supervision or Setup 2=Maximal Assistance 6=Modified [place] 3=Moderate Assistance 7=Complete IndependenceIRFPAI Quality Coding Scale 6 Independent with activity with or without an assistive device 5 Patient requires set up or clean up by helper. Patient completes activity by themselves 4 Supervision or touching assist (CGA). [place] provide cues , steadying assist 3 The helper provides less than half the effort to complete the activity 2 The helper provides more than half the effort to complete the activity 1 Dependent. The helper does all the effort to complete an activity 7 Patient refused to complete or attempt activity 9 The patient did not perform the activity before the current illness or injury 88 Not attempted due to Medical conditions or safety concerns Eating (FIM): 5 (Set up. Uses regular utensils to feed self.) Eating (QC): 5 Grooming (FIM): 5 (Close SBA standing at sink to complete grooming.) Oral Hygiene (QC): 4 Bathing (FIM): 5 (Close SBA using long handle sponge, grabbar, hand held shower and shower bench. Pt able to complete by self.) Bathing Location: L Arm, R Arm, L Upper Leg, R Upper Leg, L Lower Leg ( including foot), R Lower Leg (including foot), Chest, Abdomen, Buttocks, Perineal Area Shower/Bathe Self (QC): 4 Upper Body (FIM): 4 (Min A, assist to pull up arms and verbal cues to stock puller head and down. ) Upper Body Dressing (QC): 3 Lower Body Dressing (FIM): 2 (Pt able to hike down over hips. Assist to thread feet through pants, hike over hips and place catheter. Assist to don/ doff socks.) Lower Body Dressing (QC): 2 On/Off Footwear (QC): 2 Toileting (FIM): 2 (Has chase. Close SBA with hygiene after BM. Assist to manipulate clothing.) Toileting Hygiene (QC): 2 Toilet/Commode Transfer (FIM): 5 (Close SBA using FWW and grabbars.) Toilet Transfer (QC): 4 Shower Transfer(FIM): 5 (Close SBA using FWW, grabbars and shower bench.) After therapy, pt lying in bed with call light/phone in reach. All needs met in room. OT Short Term Goals Short Term Goals Time Frame: Mar 11, 2018 Eating(FIM): 5 Grooming(FIM): 4 Bathing(FIM): 4 Upper Body Dressing(FIM): 4 Lower Body Dressing(FIM): 3 Toileting(FIM): 4 Transfers (B,C,W/C) (FIM): 5 Toilet/Commode Transfer(FIM): 5 Shower Transfer(FIM): 4 Additional Short Term Goals: 1-Demonstrate ADL Tasks, 2-Verbalize Understanding , 3-ImproveStrength/Vandana 1=Demonstrate adherence to instructed precautions during ADL tasks. 2=Patient will verbalize/demonstrate understanding of assistive devices/ modifications for ADL. 3=Patient will improve strength/tolerance for activity to enable patient to perform ADL's. OT Halfway Goals Loss Prevention Associate Goals Time Frame: Mar 18, 2018 Eating (FIM): 6 (not met-03/14/2018) Eating (QC): 6 (not met-03/14/2018) Groomin (met-03/14/2018) Oral Hygiene (QC): 5 (not met-03/14/2018) Bathing(FIM): 4 (met-03/14/2018) Shower/Bathe Self (QC): 4 (not met-03/14/2018) Upper Body Dressing(FIM): 5 (not met-03/14/2018) Upper Body Dressing (QC): 4 (not met-03/14/2018) Lower Body Dressing(FIM): 4 (not met-03/14/2018) Lower Body Dressing (QC): 4 (not met-03/14/2018) On/Off Footwear (QC): 4 (not met-03/14/2018) Toileting(FIM): 6 (not met-03/14/2018) Toileting Hygiene (QC): 5 (not met-03/14/2018) Transfers (B,C,W/C) (FIM): 5 (met-03/17/2018) Toilet/Commode Transfer(FIM): 5 (met-03/17/2018) Toilet/Commode Transfer (QC): 5 (not met-03/17/2018) Shower Transfer(FIM): 5 (met-03/17/2018) Additional Goals: 1-Demonstrate ADL Tasks, 2-Verbalize Understanding, 3- ImproveStrength/Vandana 1=Demonstrate adherence to instructed precautions during ADL tasks. 2=Patient will verbalize/demonstrate understanding of assistive devices/ modifications for ADL. 3=Patient will improve strength/tolerance for activity to enable patient to perform ADL's. OT Education/Plan Discharge Recommendations Plan/Recommendations: Continue POC Treatment Plan/Plan of Care Patient would benefit from OT for education, treatment and training to promote independence in ADL's, mobility, safety and/or upper extremity function for ADL' s. Plan of Care: ADL Retraining, Functional Mobility, Group Exercise/Act as Ind, UE Funct Exercise/Act Treatment Duration: Mar 18, 2018 Frequency: At least 5 of 7 days/Wk (IRF) Estimated Hrs Per Day: 1.5 hours per day Agreement: Yes Rehab Potential: Fair Time/GCodes Start Time: 06:30 Stop Time: 07:30 Total Time Billed (hr/min): 60 Billed Treatment Time 1 visit-ADL 4 (60 min) PT/OT Therapy GCodes Functional Limitation-Current Modifier: CI Functional Limitation-Goal Modifier: IRWIN KOEHLER Mar 17, 2018 07:27
[2018-03-17] MEDS: SINEMET CR 50/200 (CARBIDOPA/LEVODOPA SA) TAB PO SCH ×2 (08:50→20:55)
[2018-03-17] MEDS: ASPIRIN E.C. 81 MG (ECOTRIN) TAB PO SCH (08:50)
[2018-03-17] MEDS: DIVALPROEX 250 MG DELAYED RELEASE (DEPAKOTE) TAB PO SCH ×2 (08:50→21:04)
[2018-03-17] MEDS: SILVER SULFADIAZINE 50 GM CREAM TOP SCH (08:51)
[2018-03-17] MEDS: CALCITONIN NASAL 200 INTLU/AC (FORTICAL) 3.7 ML BTL NS SCH (08:51)
--- NOTE | 2018-03-17 11:20 | Physical Therapy Daily Note ---
PT Daily Note-Current Subjective Patient reluctantly agrees to PT. He does require time to complete all functional tasks. Pain Numeric Pain Scale: 0-No Pain Location: No Pain Reported Mental Status Patient Orientation: Normal For Age Transfers Functional [place] Measure 0=Not Assessed/NA 4=Minimal Assistance 1=Total Assistance 5=Supervision or Setup 2=Maximal Assistance 6=Modified [place] 3=Moderate Assistance 7=Complete IndependenceIRFPAI Quality Coding Scale 6 Independent with activity with or without an assistive device 5 Patient requires set up or clean up by helper. Patient completes activity by themselves 4 Supervision or touching assist (CGA). [place] provide cues , steadying assist 3 The helper provides less than half the effort to complete the activity 2 The helper provides more than half the effort to complete the activity 1 Dependent. The helper does all the effort to complete an activity 7 Patient refused to complete or attempt activity 9 The patient did not perform the activity before the current illness or injury 88 Not attempted due to Medical conditions or safety concerns Transfers (B, C, W/C) (FIM): 6 Scootin Rollin Roll Left to Right (QC): 6 Supine to/from Sit: 6 Sit to/from Stand: 6 Sit to Lying (QC): 6 Sit to Stand (QC): 6 Chair/Vku-ni-Krzjk Xfer(QC): 6 Bed to/from Chair: 6 Car Transfer (QC): 6 Weight Bearing Right Lower Extremity: Right Full Weight Bearing Left Lower Extremity: Left Full Weight Bearing Gait Training Does the Patient Walk?: Yes Gait (FIM): 2 Distance (FIM): 8=899-54 ft Distance: 125' x 1; 75' x 3; 30' x 2 Walk 10 feet (QC): 5 Walk 50 ft with 2 Turns(QC): 5 Walk 150 ft (QC): 9 Walking 10ft/uneven surface-QC: 5 Gait Level of Assist: 5 Gait Assistive Device: FWW very slow, extended UE's with FWW use/shuffle gait sequence Stair Training Stair Training: Handrails/: 2 handrails Stairs (FIM): 2 #of Steps: 4 1 Step (curb) (QC): 5 4 Steps (QC): 5 12 Steps (QC): 9 Stairs: Pattern: Step to Level of Assist: 5 Balance Picking up an Object (QC): 6 Assessment Patient requires much time to complete all functional tasks. Patient reports, during treatment, he will not continue with exercises at home and will only walk 14' at a time. PT educated patient on importance of continuing therapy to ensure ability to remain at home vs. possible future admit to NH. Patient states, "I'm okay with that." Patient has attained all functional goals as set for patient upon initial evaluation. PT Short Term Goals Short Term Goals Transfers (B,C,W/C) (FIM): 5 Wheelchair Distance: 150', 50' PT Coronary Clinical Specialist Goals Coronary Clinical Specialist Goals PT Intermediate Goals Time Frame: Mar 21, 2018 Transfers (B,C,W/C) (FIM): 6 (met 03/17/18) Sit to Lying (QC): 6 (met 03/17/18) Lying-Sitting on Side/Bed(QC): 6 (met 03/17/18) Sit to Stand (QC): 6 (met 03/17/18) Rollin (met 03/17/18) Roll Left to Right (QC): 6 (met 03/17/18) Chair/Hme-jg-Kkhoa Xfer(QC): 6 (met 03/17/18) Car Transfer (QC): 6 (met 03/17/18) Does the Patient Walk: Yes Gait (FIM): 2 (met 03/17/18) Gait distance (FIM): 9=413-53 ft Distance: 125' Walk 10 feet (QC): 5 (met 03/17/18) Walk 10ft-Uneven Surface(QC): 5 (met 03/17/18) Walk 50ft with 2 Turns (QC): 5 (met 03/17/18) Walk 150 ft (QC): 9 (met 03/17/18) Gait Level of Assist: 5 (met 03/17/18) Gait Assistive Device: FWW Does the Pt use WC or Scooter?: Yes Wheelchair (FIM): 5 Wheelchair distance (FIM): 3=150 ft Distance: 150' Wheelchair Level of Assist: 5 (met 03/17/18) Wheel 50 feet with 2 turns (QC: 5 (met 03/17/18) Stairs (FIM): 2 (met 03/17/18) # of Steps: 4 (met 03/17/18) 1 Step (curb) (QC): 5 (met 03/17/18) 4 Steps (QC): 5 (met 03/17/18) 12 Steps (QC): 9 (met 03/17/18) Stairs Level Of Assist: 5 (met 03/17/18) Picking up an Object (QC): 5 (met 03/17/18) PT Plan Treatment/Plan Treatment Plan: Continue Plan of Care Treatment Plan: Bed Mobility, Concurrent Therapy, Education, Functional Activity Vandana, Functional Strength, Group Therapy, Gait, Safety, Therapeutic Exercise, Transfers Treatment Duration: Mar 21, 2018 Frequency: At least 5 of 7 days/Wk (IRF) Estimated Hrs Per Day: 1.5 hours per day Patient and/or Family Agrees t: Yes Time/GCodes Time In: 1008 Time Out: 1108 Total Billed Treatment Time: 60 Total Billed Treatment 1 visit FA x 4 60 min PT/OT Therapy GCodes Functional Limitation-Current Modifier: CI Functional Limitation-Goal Modifier: CI RAMBO PAYTON PT Mar 17, 2018 11:20
--- NOTE | 2018-03-17 14:33 | Therapy Group Daily Note ---
Therapy Daily Group Note Other/Notes Each patient had group therapy in the common area of rehab. Each patient ambulated or was transported to the common area of rehab and sat in a [place]. Each patient then had to introduce themselves, state where they were from, and answer a question involving memory and problem solving. Patient's performed upper and lower extremity seated exercises and they were led by the patient's themselves. Patients were also educated on correct transfers and positioning during transfers. Also they were educated on falls at home and patient's contributed their stories and ideas of falling and how to prevent it and things that can lead to falls. Afterwards, patients ambulated or were transported to their rooms and placed in bed or chair with all needs met. Start Time: 13:00 Stop Time: 14:15 Total Billed Treatment Time: 75 Total Billed Treatment 1 visit GRP 75' KYMBERLY TAVERA PT Mar 17, 2018 14:33
[2018-03-17 18:35] VITALS: BP 145/78
--- NOTE | 2018-03-17 20:02 | PM & R (SOAP) Progress Note ---
Subjective This was a face to face visit with the patient. Date Seen by Provider: Mar 17, 2018 Time Seen by Provider: 17:30 Subjective/Events-last exam Patient was seen in his room this eafternoon [place] out for another TOV Patient Modified Independent for transfers Review of Systems Genitourinary: Retention Objective Physician Exam Last Set of Vital Signs Vital Signs Date Time Temp Pulse Resp B/P (MAP) Pulse Ox O2 Delivery O2 Flow Rate FiO2 03/17/18 18:35 97.7 62 18 145/78 (100) 94 Room Air Capillary Refill : Less Than 3 Seconds I&O Intake and Output 03/17/18 00:00 Intake Total 820 ml Output Total 550 ml Balance 270 ml Intake Oral 820 ml Output Urine Total 550 ml # Bowel Movements 1 General: Alert, Oriented X3, Cooperative, No Acute Distress HEENT: Atraumatic, PERRLA, EOMI, Mucous Memb Moist/Progress Neck: Supple, No JVD Lungs: Clear to Auscultation Heart: Regular Rate, Other (well healed pacemaker incision site) Abdomen: Normal Bowel Sounds, Soft, No Tenderness Extremities: No Edema Neuro: Other (Left HP parkinsons gait) Results Lab Data Microbiology 03/03/18 Urine Culture - Final, Complete See Comments Assessment/Plan Assessment and Plan Left sacral ala fracture improved 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
[2018-03-17] MEDS: SIMvastatin 40 MG (ZOCOR) TAB PO SCH (20:55)
[2018-03-17] MEDS: SERTRALINE 50 MG (ZOLOFT) TABLET PO SCH (20:55)
[2018-03-18 05:19] VITALS: BP 102/58
[2018-03-18] MEDS: BETHANECHOL 25 MG (URECHOLINE) TAB PO SCH ×2 (06:03→11:21)
[2018-03-18] MEDS: VITAMIN D3 5,000 UNITS (CHOLECALCIFEROL ) CAPSULE PO SCH (06:03)
[2018-03-18] MEDS: PANTOPRAZOLE 40 MG (PROTONIX) TAB PO SCH (06:03)
[2018-03-18] MEDS: ASPIRIN E.C. 81 MG (ECOTRIN) TAB PO SCH (08:32)
[2018-03-18] MEDS: SINEMET CR 50/200 (CARBIDOPA/LEVODOPA SA) TAB PO SCH (08:32)
[2018-03-18] MEDS: DIVALPROEX 250 MG DELAYED RELEASE (DEPAKOTE) TAB PO SCH (08:32)
[2018-03-18] MEDS: CALCITONIN NASAL 200 INTLU/AC (FORTICAL) 3.7 ML BTL NS SCH (08:34)
[2018-03-18] MEDS: SILVER SULFADIAZINE 50 GM CREAM TOP SCH (08:35)
[2018-03-18] MEDS ORDERED: BETH25TA PO (08:56)
[2018-03-18] MEDS ORDERED: TAMS0.4C98 PO (08:56)
--- NOTE | 2018-03-18 08:58 | Progress Note-Urology ---
Progress Note-Urology Progress Notes/Assess & Plan Progress/Assessment & Plan PATIENT NEEDS CATH. DISCHARGE ON URECHOLINE AND FLOMAX, WITH [facility] VISIT BID FOR STRAIGHT CATH. F/U IN ONE WEEK WITH AMOUNTS Final Diagnosis URINE RETENTION UMER BAUTISTA MD Mar 18, 2018 8:58 am
--- NOTE | 2018-03-18 08:59 | PM & R (SOAP) Progress Note ---
Subjective This was a face to face visit with the patient. Date Seen by Provider: Mar 18, 2018 Time Seen by Provider: 08:05 Subjective/Events-last exam Patient was seen in his room Still with urinary retention DR turk Addressing at this moment will f/u with RN re details .Patient Modified Independent for transfers. Review of Systems Genitourinary: Retention Objective Physician Exam Last Set of Vital Signs Vital Signs Date Time Temp Pulse Resp B/P (MAP) Pulse Ox O2 Delivery O2 Flow Rate FiO2 03/18/18 05:19 97.1 62 14 102/58 (73) 96 Room Air Capillary Refill : Less Than 3 Seconds I&O Intake and Output 03/18/18 00:00 Intake Total 400 ml Output Total 550 ml Balance -150 ml Intake Oral 400 ml Output Urine Total 550 ml Bladder Scan Volume Amount 159 ml # Bowel Movements 1 General: Alert, Oriented X3, Cooperative, No Acute Distress HEENT: Atraumatic, PERRLA, EOMI, Mucous Memb Moist/[place] Neck: Supple, No JVD Lungs: Clear to Auscultation Heart: Regular Rate, Other (well healed pacemaker incision site) Abdomen: Normal Bowel Sounds, Soft, No Tenderness Extremities: No Edema Neuro: Other (Left HP parkinsons gait) Results Lab Data Microbiology 03/03/18 Urine Culture - Final, Complete See Comments Assessment/Plan Assessment and Plan Probable discharge today to home with HHC with F/U with DR turk and PCP Will f/u with SW and RN re details Co-Morbidities that are continuing to impact the rehab process: (include details ) STEPHANIA DORSEY MD Mar 18, 2018 08:59
--- NOTE | 2018-03-18 09:32 | D/C HH Face to Face Order ---
D/C Face to Face Orders Instructions for Patient Patient Instructions/FollowUp: Dr. Nedra Cruz Physician to follow Patient: Dr. Sneed Discharge Diet for Home: Regular Diet Patient Data-Allergies,Ht & Wt Patient Allergies: Coded Allergies: Cobamamide (Unverified Allergy, Unknown, MEMORY LOSS, 01/18/14) cyanocobalamin (Unverified Allergy, Unknown, MEMORY LOSS, 01/18/14) fentanyl (Verified Allergy, Unknown, 12/08/15) lactose (Verified Allergy, Unknown, 03/03/18) morphine (Verified Allergy, Unknown, 12/08/15) codeine (Unverified Adverse Reaction, Mild, SICK, 08/23/15) promethazine HCl (Unverified Adverse Reaction, Mild, LOSS OF MEMORY, ) hydrocodone (Verified Adverse Reaction, Unknown, 12/08/15) low blood pressure Uncoded Allergies: narcotics (Adverse Reaction, Unknown, 12/08/15) Height (Feet): 5 Height (Inches): 4.00 Weight (Pounds): 166 Weight (Ounces): 3.0 Home Health Need/Face to Face Date of Face to Face: Mar 18, 2018 Clinical Findings: Generalized weakness and fatigue, Muscle weakness I have seen Pt czoi-[id number]-nbid: Yes Discharged To: Home Diagnosis/Conditions: Debility post multiple falls and pelvic fracture Patient is Homebound due to: CognItive deficits, Nella fall risk due to instabilty, Muscle weakness Homebound Status Due to the above stated illness, injury or surgical procedure (medical condition or diagnosis) and associated clinical findings, the patient is homebound because of his/her inability to leave home except with aid of a supportive device and/or person AND leaving the home requires a considerable and taxing effort or is medically contraindicated. Pt req the following assistanc: Walker Home Health Nursing Orders Home Health Services Order: Nursing Services, Post Splitter-Evaluate & Treat, Physical Therapy-Evaluate & Treat Straight cath education BID and management Therapy Orders Therapy Orders: OT (must have SN or PT order), Physical Therapy Therapy Specific Orders: Eval assistive deivces, Teach enviro modifications/ safety, Gait training, Increase strength/endurance Certify Stmt I certify that this patient is under my care and that I, a nurse practitioner or a physician; a assistant center manager working with me, had a face to face encounter that - meets the physician face to face encounter requirements with this patient as dated. I personally scribed for STEPHANIA DORSEY MD ([email or web address]) on 03/17/18 at 10:53. Electronically submitted by Katie Martin ([id number]). I personally scribed for STEPHANIA DORSEY MD ([email or web address]) on 03/18/18 at 09:32. Electronically submitted by Katie Martin ([id number]). STEPHANIA DORSEY MD Mar 17, 2018 10:53
--- NOTE | 2018-03-18 09:49 | Therapy Team Discharge Summary ---
Therapy Discharge Summary Discharge Recommendations Date of Discharge 03-18-18 Therapy D/C Recommendations: Home w/ Family Support, Scheduled Assistance Occupational Therapy Pt. has been seen by occupational therapy to increase overall strength and independence. Pt. demonstrates difficulty with motivation and initiation. Pt. met goal of min assist with bathing, but did not meet any other ADL goals. Pt. is discharging home with family support and scheduled caregiving assistance. Decreased Activ Tolerance, Decreased UE Strength, Dependent Transfers, Impaired Bed Mobility, Impaired Cognition, Impaired Coordination, Impaired Funct Balance , Impaired I ADL's, Impaired Self-Care Skills, Restricted Funct UE ROM PT Wastewater Engineer Goals Wastewater Engineer Goals PT Prison Goals Time Frame: Mar 21, 2018 Transfers (B,C,W/C) (FIM): 6 (met 03/17/18) Roll Left to Right (QC): 6 (met 03/17/18) Sit to Lying (QC): 6 (met 03/17/18) Lying-Sitting on Side/Bed(QC): 6 (met 03/17/18) Sit to Stand (QC): 6 (met 03/17/18) Chair/Cbq-la-Yyljq Xfer(QC): 6 (met 03/17/18) Car Transfer (QC): 6 (met 03/17/18) Does the Patient Walk: Yes Gait (FIM): 2 (met 03/17/18) Gait distance (FIM): 7=074-95 ft Distance: 125' Walk 10 feet (QC): 5 (met 03/17/18) Walk 10ft-Uneven Surface(QC): 5 (met 03/17/18) Walk 50ft with 2 Turns (QC): 5 (met 03/17/18) Walk 150 ft (QC): 9 (met 03/17/18) Gait Level of Assist: 5 (met 03/17/18) Gait Assistive Device: FWW Does the Pt use WC or Scooter?: Yes Wheelchair (FIM): 5 Wheelchair distance (FIM): 3=150 ft Distance: 150' Wheelchair Level of Assist: 5 (met 03/17/18) Wheel 50 feet with 2 turns (QC: 5 (met 03/17/18) Stairs (FIM): 2 (met 03/17/18) # of Steps: 4 (met 03/17/18) 1 Step (curb) (QC): 5 (met 03/17/18) 4 Steps (QC): 5 (met 03/17/18) 12 Steps (QC): 9 (met 03/17/18) Stairs Level Of Assist: 5 (met 03/17/18) Picking up an Object (QC): 5 (met 03/17/18) OT Wastewater Engineer Goals Prison Goals Time Frame: Mar 18, 2018 Eating (FIM): 6 (not met-03/14/2018) Eating (QC): 6 (not met-03/14/2018) Oral Hygiene (QC): 5 (not met-03/14/2018) Grooming(FIM): 5 (met-03/14/2018) Bathing(FIM): 4 (met-03/14/2018) Shower/Bathe Self (QC): 4 (not met-03/14/2018) Upper Body Dressing(FIM): 5 (not met-03/14/2018) Upper Body Dressing (QC): 4 (not met-03/14/2018) Lower Body Dressing(FIM): 4 (not met03/14/2018) Lower Body Dressing (QC): 4 (not met-03/14/2018) On/Off Footwear (QC): 4 (not met-03/14/2018) Toileting(FIM): 6 (not met03/14/2018) Toileting Hygiene (QC): 5 (not met03/14/2018) Transfers (B,C,W/C) (FIM): 5 (met-03/17/2018) Toilet/Commode Transfer(FIM): 5 (met-03/17/2018) Toilet/Commode Transfer (QC): 5 (not met03/17/2018) Shower Transfer(FIM): 5 (met-03/17/2018) Additional Goals: 1-Demonstrate ADL Tasks, 2-Verbalize Understanding, 3- ImproveStrength/Vandana 1=Demonstrate adherence to instructed precautions during ADL tasks. 2=Patient will verbalize/demonstrate understanding of assistive devices/ modifications for ADL. 3=Patient will improve strength/tolerance for activity to enable patient to perform ADL's. Speech Prison Goals Wastewater Engineer Goals Does not apply as pt will not be receiving skilled ST services. CELI HAWK OT Mar 18, 2018 09:49
--- NOTE | 2018-03-18 10:13 | Therapy Team Discharge Summary ---
Therapy Discharge Summary Discharge Recommendations Date of Discharge Therapy D/C Recommendations: Home w/ Family Support, Scheduled Assistance Physical Therapy Patient came to rehab with coccyx fracture with left sided pain. Upon evaluation patient performed bed mobility and transfers with min/CGA, ambulated 30' with a rolling walker with min/CGA, and went up and down 1 step using a rolling walker with min/CGA. Patient has been performing bed mobility and transfer training, balance and endurance training, functional strengthening, stair training, gait training, and education. Patient has made fair progress and has met all of his fci goals. Now, patient performs bed mobility and transfers with mod I, car transfer with mod I, ambulates 125' with a rolling walker with SBA (including 50' with at least 2 turns of 90 degrees and 10' over an uneven surface), and can go up and down 4 steps using 2 handrails with SBA. Patient is being discharged from this facility today and will be discharged from PT at this time. Occupational Therapy Decreased Activ Tolerance, Decreased UE Strength, Dependent Transfers, Impaired Bed Mobility, Impaired Cognition, Impaired Coordination, Impaired Funct Balance , Impaired I ADL's, Impaired Self-Care Skills, Restricted Funct UE ROM PT Operating System Programmer Goals Operating System Programmer Goals PT Care Home Goals Time Frame: Mar 21, 2018 Transfers (B,C,W/C) (FIM): 6 (met 03/17/18) Roll Left to Right (QC): 6 (met 03/17/18) Sit to Lying (QC): 6 (met 03/17/18) Lying-Sitting on Side/Bed(QC): 6 (met 03/17/18) Sit to Stand (QC): 6 (met 03/17/18) Chair/Mwx-fp-Jngjm Xfer(QC): 6 (met 03/17/18) Car Transfer (QC): 6 (met 03/17/18) Does the Patient Walk: Yes Gait (FIM): 2 (met 03/17/18) Gait distance (FIM): 7=654-24 ft Distance: 125' Walk 10 feet (QC): 5 (met 03/17/18) Walk 10ft-Uneven Surface(QC): 5 (met 03/17/18) Walk 50ft with 2 Turns (QC): 5 (met 03/17/18) Walk 150 ft (QC): 9 (met 03/17/18) Gait Level of Assist: 5 (met 03/17/18) Gait Assistive Device: FWW Does the Pt use WC or Scooter?: Yes Wheelchair (FIM): 5 Wheelchair distance (FIM): 3=150 ft Distance: 150' Wheelchair Level of Assist: 5 (met 03/17/18) Wheel 50 feet with 2 turns (QC: 5 (met 03/17/18) Stairs (FIM): 2 (met 03/17/18) # of Steps: 4 (met 03/17/18) 1 Step (curb) (QC): 5 (met 03/17/18) 4 Steps (QC): 5 (met 03/17/18) 12 Steps (QC): 9 (met 03/17/18) Stairs Level Of Assist: 5 (met 03/17/18) Picking up an Object (QC): 5 (met 03/17/18) OT Operating System Programmer Goals Care Home Goals Time Frame: Mar 18, 2018 Eating (FIM): 6 (not met-03/14/2018) Eating (QC): 6 (not met03/14/2018) Oral Hygiene (QC): 5 (not met03/14/2018) Grooming(FIM): 5 (met03/14/2018) Bathing(FIM): 4 (met-03/14/2018) Shower/Bathe Self (QC): 4 (not met03/14/2018) Upper Body Dressing(FIM): 5 (not met03/14/2018) Upper Body Dressing (QC): 4 (not met-03/14/2018) Lower Body Dressing(FIM): 4 (not met03/14/2018) Lower Body Dressing (QC): 4 (not met03/14/2018) On/Off Footwear (QC): 4 (not met03/14/2018) Toileting(FIM): 6 (not met03/14/2018) Toileting Hygiene (QC): 5 (not met03/14/2018) Transfers (B,C,W/C) (FIM): 5 (met-03/17/2018) Toilet/Commode Transfer(FIM): 5 (met03/17/2018) Toilet/Commode Transfer (QC): 5 (not met-03/17/2018) Shower Transfer(FIM): 5 (met-03/17/2018) Additional Goals: 1-Demonstrate ADL Tasks, 2-Verbalize Understanding, 3- ImproveStrength/Vandana 1=Demonstrate adherence to instructed precautions during ADL tasks. 2=Patient will verbalize/demonstrate understanding of assistive devices/ modifications for ADL. 3=Patient will improve strength/tolerance for activity to enable patient to perform ADL's. Speech Care Home Goals Operating System Programmer Goals Does not apply as pt will not be receiving skilled ST services. KYMBERLY TAVERA PT Mar 18, 2018 10:13
[2018-03-18] MEDS ORDERED: METO-387 PO (13:15)
[2018-03-18 14:27] VITALS: BP 107/58
== END 2018-03-18 13:30 | disposition home health service (06) | DRG 560 ==
PROVIDERS: ADMIT Physical Medicine & Rehabilitation; ATTEND Physical Medicine & Rehabilitation
PROC: 0TJB8ZZ Inspection of Bladder, Via Natural or Artificial Opening Endoscopic (ICD-10-PCS; principal; 2018-03-11 09:28)
DX: S32.110D Nondisplaced Zone I fracture of sacrum, subsequent encounter for fracture with routine healing (principal); I69.354 Hemiplegia and hemiparesis following cerebral infarction affecting left non-dominant side; I69.398 Other sequelae of cerebral infarction; R41.4 Neurologic neglect syndrome; G20 Parkinson's disease; N39.0 Urinary tract infection, site not specified; N17.9 Acute kidney failure, unspecified; E86.0 Dehydration; I48.91 Unspecified atrial fibrillation; N31.9 Neuromuscular dysfunction of bladder, unspecified; E78.5 Hyperlipidemia, unspecified; I10 Essential (primary) hypertension; N40.1 Benign prostatic hyperplasia with lower urinary tract symptoms; R33.9 Retention of urine, unspecified; K21.9 Gastro-esophageal reflux disease without esophagitis; I25.10 Atherosclerotic heart disease of native coronary artery without angina pectoris; F17.210 Nicotine dependence, cigarettes, uncomplicated; K59.09 Other constipation; N32.0 Bladder-neck obstruction; F32.9 Major depressive disorder, single episode, unspecified; Z95.0 Presence of cardiac pacemaker; W19.XXXD Unspecified fall, subsequent encounter
CPT/HCPCS: 36415; 76770; 80048; 81000; 85007; 85025; 85027; 87088

== ENCOUNTER 2020-04-06 10:00 | Day surgery (SDC) | payer MEDICARE ==
[2020-04-06] VITALS (12 sets, daily range): BP systolic 117–146; BP diastolic 72–97
[~2020-04-06] VITALS: Ht 162.5 cm; Wt 76.6 kg
[2020-04-06 08:46] LABS: HEMOGLOBIN 14.6 G/DL (13.3-17.7); MEAN PLATELET VOLUME 9.6 FL (7.4-10.4); RED CELL DISTRIBUTION WIDTH 14.8 % (10.0-14.5); WHITE BLOOD COUNT 4.9 10^3/uL (4.3-11.0)
[2020-04-06 09:01] LABS: INR 0.9 (0.8-1.4); PROTHROMBIN TIME PATIENT 12.6 SEC (12.2-14.7)
[2020-04-06 09:09] LABS: ALANINE AMINOTRANSFERASE 12 U/L (0-55); ALBUMIN 3.9 GM/DL (3.2-4.5); ALKALINE PHOSPHATASE 87 U/L (40-136); BILIRUBIN,TOTAL 0.7 MG/DL (0.1-1.0); BUN/CREATININE RATIO 10; CALCIUM 9.6 MG/DL (8.5-10.1); CARBON DIOXIDE 30 MMOL/L (21-32); CHLORIDE 103 MMOL/L (98-107); CHOLESTEROL 172 MG/DL (< 200); CREATININE SERUM 0.84 MG/DL (0.60-1.30); GFR ESTIMATED > 60; GLUCOSE 93 MG/DL (70-105); HDL CHOLESTEROL 54 MG/DL (40-60); SODIUM 141 MMOL/L (135-145); TRIGLYCERIDES 79 MG/DL (<150); VLDL CHOLESTEROL 16 MG/DL (5-40)
--- NOTE | 2020-04-06 09:13 | Diagnostic Imaging Report ---
INDICATION: Pacemaker generator change. TIME OF EXAM: 8:46 AM. COMPARISON: 08/26/2015. FINDINGS: A dual lead left subclavian cardiac pacer is noted. The left hemidiaphragm is chronically elevated with subsegmental atelectasis at the left base. The right lung is clear. No effusion or pneumothorax is detected. IMPRESSION: Chronic elevation of the left hemidiaphragm with left basilar subsegmental atelectasis. No pneumothorax is detected. Dictated by: Dictated on workstation # [id number]
[~2020-04-06 10:00] MED LIST changes: +ACET-168 PO; +ACET325T38 PO; +ASPI-983 PO; +BACITRACIN INJECTION 50,000 UNIT, SODIUM CHLORIDE 0.9% IRRIGATIO 500 ML IR ONE; +BETH25TA PO; +BETH50TA9 PO; +CALC3.8S NS; +CARB1TAB41 PO; +CHOL5000 PO; +CHOL500044 PO; +DIVA-74 PO; +FURO-124 PO; +HEParin (CATH LAB) 1,000 ML IV ONE; +LIDOCAINE 1% INJ 20 ML 20 ML VIAL ONE; +MTP25TSR PO; +NS IV 1000 ML 1,000 ML IV SCH; +NS IV 1000 ML 1,000 ML ONE; +PANT40TA3 PO; +POTA10TA36 PO; +PROP20TA5 PO; -SENN-140 PO; +SENN-234 PO; +SERT25TA5 PO; +SILV25CR21 TOP; +SIMV40TA25 PO; +TMSL.4C PO; -TRAM50TA2 PO; +TRM50T PO
[2020-04-06] MEDS ORDERED: ceFAZolin INJECTION 1,000 MG ONE ×2 (10:32→16:55)
[2020-04-06] MEDS ORDERED: NS (IVPB) 50 ML ONE (10:33)
--- NOTE | 2020-04-06 10:41 | NUR ---
I SPOKE WITH THE PATIENT, WENT THROUGH THE HOME MEDS THAT WERE BROUGHT AND CALLED [employer] [facility] ORDER TO COMPLETE THIS MED REC TAMSULOSIN 0.4MG LAST FILLED 02/04/2020 #90 BETHANECHOL 50MG LAST FILLED 10/30/2019 #360 CARBIDOPA/LEVODOPA ER 50-2OOMG LAST FILLED 10/30/2019 #[address] 250MG 02/04/2020 #160 SERTRALINE 25MG LAST FILLED 02/04/2020 #90 SIMVASTATIN 40MG LAST FILLED 02/04/2020 #90 METOPROLOL ER SUCC 25MG LAST FILLED 02/04/2020 #90 POTASSIUM 10MEQ LAST FILLED 09/16/2019 #90 -TAKES ON THE SAME DAY HE TAKES LASIX FUROSEMIDE 40MG LAST FILLED 09/16/2019 #45 -TAKES EVERY 48 HOURS. PATIENT ISN'T SURE OF THE LAST DAY HE TOOK IT, HE THINKS IT MIGHT HAVE BEEN 04/04/2020 OTC: ASPIRIN VITAMIN D3
[2020-04-06] MEDS ORDERED: MIDAZOLAM 5 MG/5 ML (VERSED) VIAL ONE (10:45)
--- NOTE | 2020-04-06 11:01 | Cardiac Procedure Note-CS/ASA ---
Pre-Procedure Note Pre-Op Procedure Note H&P Reviewed The H&P was reviewed, patient examined and no changes noted. Date H&P Reviewed: Apr 06, 2020 Time H&P Reviewed: 11:01 Conscious Sedation Pre-Proced Time 11:01 ASA Score 3 For ASA 3 and 4: Consider anesthesia and medical clearance. Also, for patients with a history of failed moderate sedation consider anesthesia. Airway Lungs Heart ASA score ASA 1: a normal healthy patient ASA 2: a patient with a mild systemic disease (mid diabetes, controlled hypertension, obesity x ASA 3: a patient with a severe systemic disease that limits activity (angina, COPD, prior Myocardial infarction) ASA 4: a patient with an incapacitating disease that is a constant threat to life (CHF, renal failure) ASA 5: a moribund patient not expected to survive 24 hrs. (ruptured aneurysm) ASA 6: a declared brain- patient whose organs are being harvested. For emergent operations, add the letter E after the classification Mallampati Classification Grade 3 Sedation Plan Analgesia, Amnesia, Plan communicated to team members, Discussed options with patient/fam, Discussed risks with patient/fam The patient is an appropriate candidate to undergo the planned procedure, sedation, and anesthesia. The patient immediately re-assessed prior to indication. KEDAR BOYKIN MD Apr 06, 2020 11:01
[2020-04-06] MEDS ORDERED: MEPERIDINE (DEMEROL) INJ 100 MG/ML ONE (11:30)
[2020-04-06] MEDS ORDERED: NS IV 1000 ML 1,000 ML IV SCH (11:46)
[2020-04-06] MEDS ORDERED: CEFU500T63 PO (11:47)
--- NOTE | 2020-04-06 11:48 | Discharge Inst-Post CATH ---
Discharge Inst-CATH/EP Problems Reviewed?: Yes Post Cardiac Cath/EP D/C Inst Follow Up/Plan Appointment with Dr. BOYKIN's office next week for wound check <b>CARDIAC CATH/EP PROCEDURE DISCHARGE INSTRUCTIONS</b> ACTIVITY * Go Home directly and rest. * Limit activity of the leg (or wrist if it was used) for 7 days including aerobics, swimming, jogging, bicycling, etc. * Restrict stair-climbing for 7 days if possible, if not, climb up with your non-cath leg, then bring together on the same step. * Avoid lifting, pushing, pulling or excessive movement of the affected extremity for 7 days. * Customary sexual activity may be resumed after 2 days-use caution not to use a position that strains or causes pain to the affected extremity. * No driving for 24 hours. * NO SMOKING. * Avoid straining for bowel movements for 7 days. * Gentle walking on level ground is allowed. * Returning to work will depend on the type of procedure and the results. Your doctor will discuss this with you. CALL YOUR DOCTOR FOR ANY OF THE FOLLOWING: *If bleeding from the puncture site occurs- Apply gentle pressure to site with clean cloth and call your doctor or EMS. * If a knot or lump forms under the skin, increases in size, or causes pain. * If bruising appears to be worsening or moving further down your leg instead of disappearing. * Temperature above 101 F. CARE OF YOUR GROIN INCISION; * Bruising or purple discoloration of the skin near the puncture site is common. * You may shower only, no bathtub bathing for 5 days. Be careful to avoid slipping as your leg may feel stiff. * If a closure device was used on your femoral artery, please see the attached guide regarding care of the device and your leg. * Leave dressing on FOR 24 hours. CARE OF YOUR WRIST INCISION; * Bruising or purple discoloration of the skin near the puncture site is common. * You may shower. * DO NOT submerge wrist. * Leave dressing on FOR 24 hours. KEDAR BOYKIN MD Apr 06, 2020 11:48 am
--- NOTE | 2020-04-06 11:54 | Packmaker Change ---
Pacemaker Change Physician (s)/Mixer Machine Feeder (s) Physician KEDAR BOYKIN MD Pre-Procedure Diagnosis Pre-Procedure Diagnosis: complete heart block Post-Procedure Note Procedure Start Date: Apr 06, 2020 Name of Procedure: Dual-chamber pacemaker generator change Findings/Procedure Note After x-ray the procedure to the patient will pros and cons were explained AND were answered patient was placed on the cardiac catheterization laboratory, local anesthesia applied, conscious sedation achieved using Versed and fentanyl. Skin incision was made him ample cauterization was made, the old device reached REI and it was retrieved. Leads were inspected and appeared functioning normally. A new Medtronic device was implanted. Attached to the lead, testing showing good sensing and capture activity no complication noted. Skin incision was closed on 2 layers. patient was noted. Implanted new pacemaker device: Medwillie Fletcher DR [id number] Leads information Atrial lead [employer]. Osvaldo, length 52, model 2088, serial [id number] implanted date May 21, [address] Osvaldo, length 58, model 2088, serial [id number] implanted date May 21, 2011 Removed device information, send Osvaldo pacemaker with serial number [id number] [facility] RF Measured data Atrial lead, P-wave 2.6, pacing impedance 437, pacing threshold 0.5 V at 0.4 millisecond Ventricular lead, R-wave 21 mV, pacing impedance 399, threshold 1.25 V at 0.4 ms Conclusion 1 successful dual chamber pacemaker generator replacement with no complication Anesthesia Type: Conscious Sedation Estimated blood loss (mL): 5 ML Contrast Amount: 0 ML Post-Procedure Diagnosis Post-operative diagnosis: Paroxysmal atrial fibrillation Complete heart block Hypertension Hyperlipidemia KEDAR BOYKIN MD Apr 06, 2020 11:54 am
[2020-04-06] MEDS ORDERED: PATIENT MAY USE OWN MEDS, ALL PO SCH (12:00)
[2020-04-06] MEDS ORDERED: ceFAZolin INJECTION 1,000 MG in WATER (STERILE) FOR INJECTION 10 ML IV SCH (14:00)
[2020-04-06] MEDS ORDERED: WATER (STERILE) FOR INJECTION 10 ML ONE (16:55)
[2020-04-06] MEDS ORDERED: PANTOPRAZOLE 40 MG (PROTONIX) TAB PO SCH (21:00)
[2020-04-06] MEDS ORDERED: ASPIRIN E.C. 81 MG (ECOTRIN) TAB PO SCH (21:00)
== END 2020-04-06 18:00 | disposition home or self-care (01) ==
LOC: CATH 10:00 → SDC 12:31 → CATH 18:00
PROVIDERS: ATTEND Internal Medicine Cardiovascular Disease
DX: I44.2 Atrioventricular block, complete (principal); I48.0 Paroxysmal atrial fibrillation; I11.0 Hypertensive heart disease with heart failure; I50.9 Heart failure, unspecified; E78.2 Mixed hyperlipidemia; Z11.2 Encounter for screening for other bacterial diseases; I49.5 Sick sinus syndrome; I65.23 Occlusion and stenosis of bilateral carotid arteries; G40.909 Epilepsy, unspecified, not intractable, without status epilepticus; Z86.73 Personal history of transient ischemic attack (TIA), and cerebral infarction without residual deficits; Z88.5 Allergy status to narcotic agent; Z88.8 Allergy status to other drugs, medicaments and biological substances; Z79.82 Long term (current) use of aspirin; Z79.899 Other long term (current) drug therapy; Z87.891 Personal history of nicotine dependence; Z95.0 Presence of cardiac pacemaker
CPT/HCPCS: 33228; 71045; 80053; 80061; 85027; 85610; 85730; 87081; C1785; 36415

== ENCOUNTER 2020-05-12 05:34 | Outpatient (CLI) | payer MEDICARE ==
[~2020-05-12] VITALS: Ht 152 cm; Wt 75.0 kg
[~2020-05-12 05:34] MED LIST changes: +ASPI-1238 PO; -ASPI-983 PO; -BACITRACIN INJECTION 50,000 UNIT, SODIUM CHLORIDE 0.9% IRRIGATIO 500 ML IR ONE; +CEFU500T63 PO; -HEParin (CATH LAB) 1,000 ML IV ONE; -LIDOCAINE 1% INJ 20 ML 20 ML VIAL ONE; -NS IV 1000 ML 1,000 ML IV SCH; -NS IV 1000 ML 1,000 ML ONE; -PANT40TA3 PO; +PANT40TA52 PO
== END 2020-05-12 12:13 | disposition home or self-care (01) ==
LOC: PREOP 05:34
PROVIDERS: ATTEND Specialist
DX: Z01.818 Encounter for other preprocedural examination (principal)

== ENCOUNTER 2020-05-13 09:00 | Day surgery (SDC) | payer MEDICARE ==
[~2020-05-13] VITALS: Ht 152 cm
[2020-05-13 09:05] VITALS: BP 120/74
[2020-05-13] MEDS ORDERED: TETRACAINE 0.5% OPHTH SOLN 4 ML BTL (SINGLE DOSE ONLY) OU PRN (09:15)
[2020-05-13] MEDS ORDERED: PHENYLEPHRINE 10% OPHTH (NEO-SYN) 5 ML BTL OU PRN (09:15)
[2020-05-13] MEDS ORDERED: TROPICAMIDE 1% OPH SOLN (MYDRIACYL) 15 ML BTL OU PRN (09:15)
--- NOTE | 2020-05-13 09:15 | Ophthalmologist Pre-Op Note ---
Pre-Operative Progress Note H&P Reviewed The H&P was reviewed, patient examined and no changes noted. Date H&P Reviewed: May 13, 2020 Time H&P Reviewed: 09:15 Pre-Op Dx Secondary Cataract, Right Eye EDGARD RODNEY MD May 13, 2020 09:15
[2020-05-13 10:05] VITALS: BP 120/74
--- NOTE | 2020-05-13 10:22 | Ophthalmology Operative Report ---
YAG Capsulotomy PREOPERATIVE DIAGNOSIS: Secondary Cataract Right Eye POSTOPERATIVE DIAGNOSIS: Secondary Cataract Right Eye PROCEDURE: YAG Capsulotomy, right eye SURGEON: Junior Rodney ANESTHESIA: Topical anesthesia COMPLICATIONS: None ESTIMATED BLOOD LOSS: Minimal DESCRIPTION OF PROCEDURE: After proper informed consent was obtained, the patient's, a 84 male, right eye received one drop of Tropicamide and one drop of Tetracaine. The patient was then placed at the YAG laser and using a power of [4.0 ] millijoules and [ 27] bursts were used to fashion a central capsulotomy. The patient tolerated the procedure well without complications. JUNIOR RODNEY MD May 13, 2020 10:22
== END 2020-05-13 10:05 | disposition home or self-care (01) ==
LOC: SDC 09:00
PROVIDERS: ATTEND Specialist
DX: H26.40 Unspecified secondary cataract (principal); I11.9 Hypertensive heart disease without heart failure; G40.909 Epilepsy, unspecified, not intractable, without status epilepticus; E78.00 Pure hypercholesterolemia, unspecified; F32.9 Major depressive disorder, single episode, unspecified; Z87.891 Personal history of nicotine dependence; Z86.73 Personal history of transient ischemic attack (TIA), and cerebral infarction without residual deficits; Z95.0 Presence of cardiac pacemaker; Z88.5 Allergy status to narcotic agent; Z88.8 Allergy status to other drugs, medicaments and biological substances

== ENCOUNTER 2021-06-04 09:15 | Inpatient (IN) | payer MEDICARE ==
[2021-06-04] VITALS (11 sets, daily range): BP systolic 102–140; BP diastolic 64–90
[~2021-06-04] VITALS: Ht 162.5 cm; Wt 77.1 kg
[~2021-06-04 09:15] MED LIST changes: +CARB-275 PO; +SERT-412 PO; -SERT25TA5 PO
--- NOTE | 2021-06-04 09:58 | ED Fall/Injury ---
General Chief Complaint: Trauma-Non Activation Stated Complaint: BROKEN HIP Source: patient, EMS, other (Report from [facility] ER) Exam Limitations: no limitations History of Present Illness Date Seen by Provider: Jun 04, 2021 Time Seen by Provider: 09:26 Initial Comments This 85-year-old gentleman presents to the emergency room via EMS as a transfer from [facility] in [place] where he was evaluated for a right hip fracture. Images were reviewed by Dr. Hawkins and he accepted transfer from an orthopedic perspective with anticipation of performing surgery today. This is a trauma and is being received by ER to ER transfer. Patient received a fairly thorough work- up from [place] and is stable at this time. He reports losing his balance while walking to the bathroom using his walker this morning. He fell striking his right hip. He denies any other injury. He did not strike his head or neck, and he denies pain anywhere else. Labs as obtained in [place] were reviewed and are stable. Vital signs are stable on arrival. Patient has cardiac history including pacemaker and hypertension. He has tremors consistent with Parkinson's disease and he is noted to take Sinemet. Patient requested a full CODE STATUS. X-rays ar e not immediately available to me, nor is the report. Dr. Hawkins reportedly has evaluated the x-rays. Dr. Sneed is his primary care provider, and he therefore requested transfer to [place]. Allergies and Home Medications Allergies Coded Allergies: Cobamamide (Unverified Allergy, Unknown, MEMORY LOSS, 01/18/14) cyanocobalamin (Unverified Allergy, Unknown, MEMORY LOSS, 01/18/14) fentanyl (Verified Allergy, Unknown, 12/08/15) lactose (Verified Allergy, Unknown, 03/03/18) morphine (Verified Allergy, Unknown, 12/08/15) codeine (Unverified Adverse Reaction, Mild, SICK, 08/23/15) promethazine HCl (Unverified Adverse Reaction, Mild, LOSS OF MEMORY, 04/12/11) hydrocodone (Verified Adverse Reaction, Unknown, 12/08/15) low blood pressure Uncoded Allergies: narcotics (Adverse Reaction, Unknown, 12/08/15) Patient Home Medication List Home Medication List Reviewed: Yes Aspirin (Aspirin EC) 81 Mg Tablet., 81 MG PO HS, (Reported) Entered as Reported by: KIKA SEWELL on 03/03/181555 Last Action: Reviewed Bethanechol Chloride (Urecholine) 50 Mg Tablet, 50 MG PO BID, (Reported) Entered as Reported by: NICK PEOPLES on 04/06/20950 Last Action: Reviewed Carbidopa/Levodopa (Carbidopa-Levo ER 50-200 Tab) 1 Each Tablet.er, 1 EACH PO BID, (Reported) Entered as Reported by: NICK PEOPLES on 04/06/20950 Last Action: Reviewed Cholecalciferol (Vitamin D3) (Vitamin D3) 125 Mcg Tablet, 125 MCG PO DAILY, (Reported) Entered as Reported by: NICK PEOPLES on 04/06/20950 Last Action: Reviewed Divalproex Sodium (Divalproex Sodium) 250 Mg Tablet.dr, 250 MG PO BID, (Reported ) Entered as Reported by: KIKA SEWELL on 03/03/181555 Last Action: Reviewed Furosemide (Lasix) 40 Mg Tablet, 40 MG PO Q48H, (Reported) Entered as Reported by: NICK PEOPLES on 04/06/20950 Last Action: Reviewed Metoprolol Succinate (Metoprolol Succinate) 25 Mg Tab.er.24h, 25 MG PO HS, (Reported) Entered as Reported by: NICK PEOPLES on 04/06/20950 Last Action: Reviewed Pantoprazole Sodium (Pantoprazole Sodium) 40 Mg Tablet.dr, 40 MG PO HS, (Reported) Entered as Reported by: KIKA SEWELL on 03/03/181555 Last Action: Reviewed Potassium Chloride (Potassium Chloride) 10 Meq Tab.er.prt, 10 MEQ PO Q48H BID, (Reported) Entered as Reported by: NICK PEOPLES on 04/06/20950 Last Action: Reviewed Sertraline HCl (Sertraline HCl) 25 Mg Tablet, 25 MG PO HS, (Reported) Entered as Reported by: KIKA SEWELL on 03/03/181610 Last Action: Reviewed Simvastatin (Simvastatin) 40 Mg Tablet, 40 MG PO DAILY, (Reported) Entered as Reported by: KIKA SEWELL on 03/03/181555 Last Action: Held Tamsulosin HCl (Flomax) 0.4 Mg Cap, 0.4 MG PO 1800, (Reported) Entered as Reported by: NICK PEOPLES on 04/06/20 0951 Last Action: Reviewed Discontinued Medications Cefuroxime Axetil (Cefuroxime) 500 Mg Tablet, 500 MG PO BID Discontinued Reason: No Longer Taking Prescribed by: KEDAR BOYKIN on 04/06/20 1147 Last Action: Discontinued Review of Systems Review of Systems Constitutional: no symptoms reported Eyes: No Symptoms Reported Ears, Nose, Mouth, Throat: no symptoms reported Respiratory: no symptoms reported Cardiovascular: no symptoms reported Gastrointestinal: no symptoms reported Genitourinary: no symptoms reported Musculoskeletal: see HPI Skin: no symptoms reported Psychiatric/Neurological: See HPI Past Bgfswnf-Fsyirs-Xnwrap Hx Patient Social History Tobacco Use?: No Substance use?: No Alcohol Use?: No Immunizations Up To Date Tetanus Booster (TDap): Unknown Seasonal Allergies Seasonal Allergies: No Past Medical History Surgeries: Yes Abdominal, Amputation, Eye Surgery, Joint Replacement, Orthopedic (Left hip replacement), Pacemaker Respiratory: Yes Asthma Cardiac: Yes (PACEMAKER; ATRIAL CLIP PROCEDURE) Hypertension Neurological: Yes (CVA WITH LEFT SIDE WEAKNESS, DYSPHAGIA, AND POOR COORDINATION) Parkinson's Disease, Stroke Reproductive Disorders: No Sexually Transmitted Disease: No HIV/AIDS: No Genitourinary: Yes Benign Prostatic Hyperpl, Prostate Problems, Kidney Stones Gastrointestinal: Yes (LACTOSE INTOLERANT; HIATAL AND UMBILICAL HERNIA REPAIRS) Abdominal Hernia, Chronic Constipation, Hiatal Hernia, Ulcer Musculoskeletal: Yes Degenerate Disk Disease, Arthritis, Chronic Back Pain, Fractures Endocrine: No HEENT: Yes (DYSPHAGIA FROM CVA; CATARACTS/LENS IMPLANTS) Cataract Hearing Impairment: Denies Cancer: No 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) Depression Integumentary: Yes (RASH IN SUMMER AT TIMES) Pruritis Blood Disorders: No Adverse Reaction/Blood Tranf: No Family Medical History Cancer G8 BROTHER G8 BROTHER G8 SISTER Cancer of colon G8 BROTHER Cataract 19 FATHER Congestive heart failure 19 FATHER Family history: Allergy DAUGHTER Family history: Alzheimer's disease 19 FATHER Family history: Breast disease G8 SISTER No Family History of: Abdominal aortic aneurysm Garrard's disease Alcoholism Aphasia Chest pain Congenital heart disease Cystic fibrosis Dementia Dysphagia Family history: Arthritis Family history: Asthma Family history: Cardiovascular disease Family history: Coronary thrombosis Family history: Diabetes mellitus Family history: Gastrointestinal disease Family history: Glaucoma Family history: Hypertension Family history: Osteoporosis Family history: Thyroid disorder Headache Hearing loss Heart disease Hereditary disease History of - anemia History of - disorder History of - respiratory disease History of drug abuse Human immunodeficiency virus (HIV) seropositivity Hypercholesterolemia Infertile Kidney disease Malignant neoplasm of lung Myocardial infarction Parkinson's disease Prostate cancer Psychotic disorder Seizure disorder Stroke Tuberculosis Visual impairment Physical Exam Vital Signs Vital Signs - First Documented Capillary Refill : Height, Weight, BMI Height: 5'4.00" Weight: 166lbs. 3.0oz. [id number]; 29.00 BMI Method:Stated General Appearance: WD/WN, no apparent distress, thin HEENT: normal ENT inspection Neck: normal inspection Cardiovascular: regular rate, rhythm, no edema, no murmur Respiratory: lungs clear, normal breath sounds, no respiratory distress Gastrointestinal: normal bowel sounds, non tender, soft; No distended Extremities: other (Tenderness of the right hip. Distal sensation and movement intact. Capillary refill less than 5 seconds. 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 Sneed Time/Spoke to Consulting Phy: 09:32 Dr. Hawkins Impression Primary Impression: Fall on same level Qualified Codes: W18.30XA - Fall on same level, unspecified, initial encounter Additional Impression: Closed right hip fracture Qualified Codes: S72.001A - Fracture of unspecified part of neck of right femur, initial encounter for closed fracture Disposition: ADMITTED INPATIENT Condition: Improved Admissions Decision to Admit Reason: Admit from ER (Trauma) Decision to Admit/Date: Jun 04, 2021 Time/Decision to Admit Time: 09:26 Departure-Patient Inst. Referrals: NAPOLEON SNEED DO (PCP/Family) Primary Care Physician MEL LYNCH MD Jun 04, 2021 09:58
[2021-06-04] MEDS: LACTATED RINGERS 1,000 ML IV SCH ×4 (10:52→23:18)
--- NOTE | 2021-06-04 10:53 | Consultation ---
History of Present Illness History of Present Illness Patient Consulted On(steven/time) 06/04/21 10:44 Date Seen by Provider: Jun 04, 2021 Time Seen by Provider: 10:49 History of Present Illness This is an 85 year old male who was walking in his house to the bathroom when he sustained a fall landing on his right hip. He was seen at [facility] ER and found to have a right hip fracture. Dr. Hawkins has accepted him in transfer and plans on surgery this afternoon. He has a history of HTN, previous atrial fibrillation with clip to atrial appendage, pacemaker, history of CVA with ongoing weakness, parkinson's, hyperlipidemia. Allergies and Home Medications Allergies Coded Allergies: Cobamamide (Unverified Allergy, Unknown, MEMORY LOSS, 01/18/14) cyanocobalamin (Unverified Allergy, Unknown, MEMORY LOSS, 01/18/14) fentanyl (Verified Allergy, Unknown, 12/08/15) lactose (Verified Allergy, Unknown, 03/03/18) morphine (Verified Allergy, Unknown, 12/08/15) codeine (Unverified Adverse Reaction, Mild, SICK, 08/23/15) promethazine HCl (Unverified Adverse Reaction, Mild, LOSS OF MEMORY, 04/12/11) hydrocodone (Verified Adverse Reaction, Unknown, 12/08/15) low blood pressure Uncoded Allergies: narcotics (Adverse Reaction, Unknown, 12/08/15) Patient Home Medication List Home Medication List Reviewed: Yes Aspirin (Aspirin EC) 81 Mg Tablet.dr, 81 MG PO HS, (Reported) Entered as Reported by: KIKA SEWELL on 03/03/18 1556 Bethanechol Chloride (Urecholine) 50 Mg Tablet, 50 MG PO BID, (Reported) Entered as Reported by: NICK PEOPLES on 04/06/20 0951 Carbidopa/Levodopa (Carbidopa-Levo ER 50-200 Tab) 1 Each Tablet.er, 1 EACH PO BID, (Reported) Entered as Reported by: NICK PEOPLES on 04/06/20 0951 Cefuroxime Axetil (Cefuroxime) 500 Mg Tablet, 500 MG PO BID Prescribed by: KEDAR BOYKIN on 04/06/20 1147 Cholecalciferol (Vitamin D3) (Vitamin D3) 125 Mcg Tablet, 125 MCG PO DAILY, (Reported) Entered as Reported by: NICK PEOPLES on 04/06/20 09 Divalproex Sodium (Divalproex Sodium) 250 Mg Tablet.dr, 250 MG PO BID, (Reported) Entered as Reported by: KIKA SEWELL on 03/03/18 155 Furosemide (Lasix) 40 Mg Tablet, 40 MG PO Q48H, (Reported) Entered as Reported by: NICK PEOPLES on 04/06/20 09 Metoprolol Succinate (Metoprolol Succinate) 25 Mg Tab.er.24h, 25 MG PO HS, (Reported) Entered as Reported by: NICK PEOPLES on 04/06/20 09 Pantoprazole Sodium (Pantoprazole Sodium) 40 Mg Tablet.dr, 40 MG PO HS, (Reported) Entered as Reported by: KIKA SEWELL on 03/03/18 155 Potassium Chloride (Potassium Chloride) 10 Meq Tab.er.prt, 10 MEQ PO Q48H BID, (Reported) Entered as Reported by: NICK PEOPLES on 04/06/20950 Sertraline HCl (Sertraline HCl) 25 Mg Tablet, 25 MG PO HS, (Reported) Entered as Reported by: KIKA SEWELL on 03/03/18 1611 Simvastatin (Simvastatin) 40 Mg Tablet, 40 MG PO DAILY, (Reported) Entered as Reported by: KIKA SEWELL on 03/03/181555 Tamsulosin HCl (Flomax) 0.4 Mg Cap, 0.4 MG PO 1800, (Reported) Entered as Reported by: NICK PEOPLES on 04/06/20950 Past Rfajjen-Zgvxeh-Ixwtjd Hx Patient Social History Marrital Status: Employed/Student: retired Tobacco Use?: No Smoking Status: Former Smoker Use of E-Cig and/or Vaping dev: No Substance use?: No Alcohol Use?: No Pt feels they are or have been: No Immunizations Up To Date Date of Influenza Vaccine: May 12, 2019 First/Initial COVID19 Vaccinat: 2020 Second COVID19 Vaccination Steven: 2020 Tetanus Booster (TDap): Unknown Hepatitis A: No Hepatitis B: No Date of Pneumonia Vaccine: May 17, 2019 Seasonal Allergies Seasonal Allergies: No Current Status Advance Directives: No Communicates: Verbally Primary Language: Montserratian Preferred Spoken Language: Montserratian Is interpretation needed?: No Implanted or Applied Medical D: Pacemaker Past Medical History Surgeries: Abdominal, Amputation, Eye Surgery, Joint Replacement, Orthopedic (Left hip replacement), Pacemaker Asthma Hypertension Parkinson's Disease, Stroke Sexually Transmitted Disease: No HIV/AIDS: No Benign Prostatic Hyperpl, Prostate Problems, Kidney Stones Abdominal Hernia, Chronic Constipation, Hiatal Hernia, Ulcer Degenerate Disk Disease, Arthritis, Chronic Back Pain, Fractures Cataract Hearing Impairment: Denies Depression Pruritis Blood Disorders: No Adverse Reaction/Blood Tranf: No Family Medical History Cancer G8 BROTHER G8 BROTHER G8 SISTER Cancer of colon G8 BROTHER Cataract 19 FATHER Congestive heart failure 19 FATHER Family history: Allergy DAUGHTER Family history: Alzheimer's disease 19 FATHER Family history: Breast disease G8 SISTER No Family History of: Abdominal aortic aneurysm Reggie's disease Alcoholism Aphasia Chest pain Congenital heart disease Cystic fibrosis Dementia Dysphagia Family history: Arthritis Family history: Asthma Family history: Cardiovascular disease Family history: Coronary thrombosis Family history: Diabetes mellitus Family history: Gastrointestinal disease Family history: Glaucoma Family history: Hypertension Family history: Osteoporosis Family history: Thyroid disorder Headache Hearing loss Heart disease Hereditary disease History of - anemia History of - disorder History of - respiratory disease History of drug abuse Human immunodeficiency virus (HIV) seropositivity Hypercholesterolemia Infertile Kidney disease Malignant neoplasm of lung Myocardial infarction Parkinson's disease Prostate cancer Psychotic disorder Seizure disorder Stroke Tuberculosis Visual impairment Review of Systems Review of Systems General: No Chills, No Night Sweats, No Fatigue, No Malaise, No Appetite, No Other HEENT: No Head Aches, No Visual Changes, No Eye Pain, No Ear Pain, No Dysphasia, No Sinus Congestion, No Post Nasal Drip, No Sore Throat, No Other Pulmonary: No Dyspnea, No Cough, No Pleuritic Chest Pain, No Other Cardiovascular: No: Chest Pain, Palpitations, Orthopnea, Paroxysmal Noc. Dyspnea, Edema, Lt Headedness, Other Gastrointestinal: No: Nausea, Vomiting, Abdominal Pain, Diarrhea, Constipation, Melena, Hematochezia, Other Musculoskeletal: leg pain (right hip) Neurological: Weakness All Other Systems Reviewed All Other Systems Reviewed: Yes Physical Exam Vital Signs Vital Signs - First Documented Capillary Refill : Less Than 3 Seconds Height, Weight, BMI Height: 5'4.00" Weight: 166lbs. 3.0oz. 70.303936dd; 29.00 BMI Method:Stated General Appearance: No Apparent Distress HEENT: Normal ENT Inspection Respiratory: Lungs Clear Cardiovascular: Regular Rate, Rhythm, Systolic Murmur, Gallop/S4 Gastrointestinal: Normal Bowel Sounds, Non Tender, Soft Rectal: Deferred Back: No CVA Tenderness Extremity: Non Tender, No Calf Tenderness, No Pedal Edema Neurologic/Psychiatric: Alert, Oriented x3 Skin: Warm/Dry Assessment/Plan Assessment/Plan Admission Dx 1. Right Hip/Femur Fracture--Dr. Hawkins has accepted for surgery, will need rehab postop 2. Hypertension/Pacemaker--resume home meds 3. Parkinson's--on Sinemet 4. History of CVA with Residual Weakness/Deficits--stable NAPOLEON AKHTAR DO Jun 04, 2021 10:52
--- NOTE | 2021-06-04 11:26 | Progress Note-Pre Operative ---
Pre-Operative Progress Note H&P Reviewed The H&P was reviewed, patient examined and no changes noted. Date Seen by Provider: Jun 04, 2021 Time Seen by Provider: : Date H&P Reviewed: Jun 04, 2021 Time H&P Reviewed: : Pre-Operative Diagnosis: right intertrochanteric femur fracture OBED JASSO MD Jun 04, 2021 11:26
--- NOTE | 2021-06-04 11:27 | Progress Note-Post Operative ---
Post-Operative Progess Note Surgeon (s)/Meter Setter (s) Surgeon OBED JASSO MD Meter Setter: Pino Barry Pre-Operative Diagnosis right intertrochanteric femur fracture Post-Operative Diagnosis right intertrochanteric femur fracture Procedure & Operative Findings Date of Procedure 06/04/21 Procedure Performed/Findings right hip intramedullary nail Anesthesia Type GETA Estimated Blood Loss Estimated blood loss (mL): 100ml Specimens/Packing Specimens Removed none Packing: none OBED JASSO MD Jun 04, 2021 11:27
--- NOTE | 2021-06-04 11:52 | Consultation-Cardiology ---
HPI-Cardiology Cardiology Consultation Date of Consultation 06/04/21 Date of Admission Time Seen by Provider: 11:48 Indication: Preoperative cardiac evaluation HPI 85 years old gentleman with history of persistent atrial fibrillation, permanent pacemaker, sustained a fall while walking to the bathroom with his walker, had a fracture to his right hip. He denied any syncope, no chest pain, no shortness of breath. No palpitation. Patient is scheduled for surgery today with Dr. Hawkins Home Medications & Allergies Allergies: Coded Allergies: Cobamamide (Unverified Allergy, Unknown, MEMORY LOSS, 01/18/14) cyanocobalamin (Unverified Allergy, Unknown, MEMORY LOSS, 01/18/14) fentanyl (Verified Allergy, Unknown, 12/08/15) lactose (Verified Allergy, Unknown, 03/03/18) morphine (Verified Allergy, Unknown, 12/08/15) codeine (Unverified Adverse Reaction, Mild, SICK, 08/23/15) promethazine HCl (Unverified Adverse Reaction, Mild, LOSS OF MEMORY, ) hydrocodone (Verified Adverse Reaction, Unknown, 12/08/15) low blood pressure Uncoded Allergies: narcotics (Adverse Reaction, Unknown, 12/08/15) Home Medication List Reviewed: Yes [id number] Hx Patient Social History Marital Status: Employed/Student: retired Smoking Status: Former Smoker Former smoker/When Quit: Feb 14, 1986 Type Used: Cigarettes Recent Hopitalizations: No Have you traveled recently?: No Alcohol Use?: No Immunizations Up To Date Tetanus Booster (TDap): Unknown Date of Pneumonia Vaccine: May 17, 2019 Date of Influenza Vaccine: May 12, 2019 Past Medical History Discussed below Family Medical History Family History: Cancer G8 BROTHER G8 BROTHER G8 SISTER Cancer of colon G8 BROTHER Cataract 19 FATHER Congestive heart failure 19 FATHER Family history: Allergy DAUGHTER Family history: Alzheimer's disease 19 FATHER Family history: Breast disease G8 SISTER No Family History of: Abdominal aortic aneurysm Clatsop's disease Alcoholism Aphasia Chest pain Congenital heart disease Cystic fibrosis Dementia Dysphagia Family history: Arthritis Family history: Asthma Family history: Cardiovascular disease Family history: Coronary thrombosis Family history: Diabetes mellitus Family history: Gastrointestinal disease Family history: Glaucoma Family history: Hypertension Family history: Osteoporosis Family history: Thyroid disorder Headache Hearing loss Heart disease Hereditary disease History of - anemia History of - disorder History of - respiratory disease History of drug abuse Human immunodeficiency virus (HIV) seropositivity Hypercholesterolemia Infertile Kidney disease Malignant neoplasm of lung Myocardial infarction Parkinson's disease Prostate cancer Psychotic disorder Seizure disorder Stroke Tuberculosis Visual impairment Review of Systems-General Review of Systems Constitutional: no symptoms reported, see HPI, malaise, weakness EENTM: see HPI Respiratory: see HPI; No cough, No dyspnea on exertion, No hemoptysis, No orthopnea, No phlegm, No short of breath, No stridor, No wheezing, No other Cardiovascular: see HPI; No chest pain, No edema, No Hx of Intervention, No palpitations, No syncope, No vascular heart diseas, No other Gastrointestinal: no symptoms reported, see HPI Genitourinary: no symptoms reported, see HPI Musculoskeletal: see HPI, joint pain Skin: no symptoms reported Psychiatric/Neurological: See HPI All Other Systems Reviewed Negative Unless Noted: Yes Physical Exam Physical Exam Vital Signs Vital Signs - First Documented Capillary Refill : Less Than 3 Seconds Height, Weight, BMI Height: 5'4.00" Weight: 166lbs. 3.0oz. 70.086318in; 29.00 BMI Method:Stated General Appearance: No Apparent Distress HEENT: Normal ENT Inspection Respiratory: Lungs Clear Cardiovascular: Systolic Murmur, Gallop/S4, Irregularly Irregular Gastrointestinal: Normal Bowel Sounds, Non Tender, Soft Rectal: Deferred Back: No CVA Tenderness Extremity: Non Tender, No Calf Tenderness, No Pedal Edema Neurologic/Psychiatric: Alert, Oriented x3 Skin: Warm/Dry A/P-Cardiology Admission Diagnosis Right hip fracture Chronic atrial fibrillation Permanent pacemaker Hypertension Assessment/Plan Right hip fracture, scheduled for surgery today with Dr. Hawkins Chronic persistent atrial fibrillation, rate is controlled. Has underlying sinus node dysfunction and permanent pacemaker. Continue to monitor [id number] score 4, yearly risk of stroke without oral anticoagulation is 4%. Patient has history of embolic stroke and hemorrhagic stroke, unable to tolerate oral anticoagulation and had ELHAM clip done at . Sinus node dysfunction, permanent pacemaker, had generator replacement done in April 2020. Continue to monitor Hypertension, restart home medication monitor blood pressure Hyperlipidemia, restart home medication monitor lipids History of seizure disorder. Continue to monitor Mild bilateral carotid stenosis, continue to monitor Preoperative cardiac evaluation, patient is considered at intermediate risk for perioperative cardiovascular complications, decision regarding the surgery, risk versus benefit is deferred to the surgeon KEDAR BOYKIN MD Jun 04, 2021 11:52
[2021-06-04] MEDS: fentaNYL INJ 100 MCG/2 ML AMP IVP PRN (13:04)
[2021-06-04] MEDS: ONDANSETRON 4 MG/2 ML (SDV) Z0FRAN IVP PRN ×3 (13:16→21:12)
--- NOTE | 2021-06-04 13:59 | CONSULTATION REPORT ---
DATE OF SERVICE: 06/04/2021 REASON FOR ADMISSION: Right intertrochanteric femur fracture (closed, displaced). HISTORY OF PRESENT ILLNESS: The patient is an 85-year-old gentleman who normally ambulates with a walker, who fell this morning, landing on his right hip initially presented to an outside facility and was found to have a right intertrochanteric femur fracture. He requested transfer to [facility] as Dr. Sneed is his primary care provider. He denies antecedent pain. ALLERGIES: HYDROCODONE, MORPHINE, LACTOSE, CODEINE, PROMETHAZINE. MEDICATIONS: Aspirin, Urecholine, carbidopa, vitamin D, Lasix, metoprolol, pantoprazole, potassium, sertraline, simvastatin, Flomax. SOCIAL HISTORY: The patient lives with his son. PAST SURGICAL HISTORY: Left bipolar replacement of the hip, pacemaker placement. PAST MEDICAL HISTORY: Significant for asthma, hypertension, Parkinson's, CVA. PHYSICAL EXAMINATION: ORTHOPEDIC: The right lower extremity shortened and externally rotated. He has symmetric pulses. Intact dorsiflexion, plantar flexion toes. No skin lesions noted. He is tender over the lateral aspect of his right hip. Radiographs reveal a displaced right intertrochanteric femur fracture. PLAN: Right hip intramedullary nail. Discussed risks, benefits, options, ramifications and recovery with the patient and his daughter. They understand and wished to proceed. Job ID: [id number] DocumentID: [id number] Dictated Date: 06/04/2021 11:37:13 [employer] Date: 06/04/2021 13:59:15 Dictated By: OBED JASSO MD
[2021-06-04] MEDS ORDERED: LIDOCAINE PF 2% 5 ML (XYLOCAINE) VIAL ONE (14:09)
[2021-06-04] MEDS ORDERED: fentaNYL INJ 100 MCG/2 ML AMP ONE (14:09)
[2021-06-04] MEDS ORDERED: MIDAZOLAM 2 MG/2 ML (VERSED) VIAL ONE (14:09)
[2021-06-04] MEDS ORDERED: NALOXONE 0.4 MG/ML 1 ML (NARCAN) VIAL IV PRN (14:15)
[2021-06-04] MEDS ORDERED: oxyCODONE/APAP 5/325MG (PERCOCET 5) TABLET PO PRN (14:15)
[2021-06-04] MEDS ORDERED: LACTATED RINGERS 1,000 ML IV PRN (14:15)
[2021-06-04] MEDS ORDERED: HYDROmorphone 2 MG/ML VIAL (DILAUDID) IVP PRN (14:15)
[2021-06-04] MEDS ORDERED: BUPIVACAINE 0.25% 30 ML (SENSORCAINE) VIAL ONE (14:33)
[2021-06-04] MEDS ORDERED: CLINDAMYCIN 600 MG/4ML (CLEOCIN) VIAL ONE (14:46)
[2021-06-04] MEDS ORDERED: ONDANSETRON 4 MG/2 ML (SDV) Z0FRAN ONE (14:52)
[2021-06-04] MEDS ORDERED: HYDROmorphone 2 MG/ML VIAL (DILAUDID) ONE (14:52)
[2021-06-04] MEDS ORDERED: PHENYLEPHRINE 100 MCG/ML 10 ML (ANESTHESIA) SYR ONE (14:59)
[2021-06-04] MEDS ORDERED: ROPIVACAINE 5MG/ML 30ML VIAL ONE (15:00)
[2021-06-04] MEDS ORDERED: CLINDAMYCIN 600 MG/4ML (CLEOCIN) VIAL IV ONE (15:15)
[2021-06-04] MEDS ORDERED: proPOfol 200 MG/20 ML (DIPRIVAN) VIAL IV ONE (15:22)
[2021-06-04] MEDS ORDERED: SEVOFLURANE (ULTANE) 15 ML INHAL SOLN ONE (15:26)
[2021-06-04] MEDS ORDERED: ceFAZolin 2 GM IV Premixed 50 ML IV ONE (15:30)
--- NOTE | 2021-06-04 15:38 | Diagnostic Imaging Report ---
EXAM: Fluoroscopic guidance for intraoperative hip surgery. EXAM DATE: 06/04/2021. COMPARISON: None. HISTORY: Right hip surgery. TECHNIQUE: 4 fluoroscopic images were obtained. Total fluoroscopy time 32.4 seconds. Cumulative dose 5.4 mGy. FINDINGS: Fluoroscopic guidance for right hip open reduction internal fixation. Please see operative report for more details. IMPRESSION: Fluoroscopic guidance for right hip surgery. Please see operative report for more details. Dictated by: Dictated on workstation # [id number]
[2021-06-04] MEDS ORDERED: fentaNYL INJ 100 MCG/2 ML AMP IVP ONE (16:00)
[2021-06-04] MEDS ORDERED: CLINDAMYCIN IV ONE (16:00)
[2021-06-04] MEDS ORDERED: ONDANSETRON 4 MG/2 ML (SDV) Z0FRAN IVP PRN ×2 (16:00)
[2021-06-04] MEDS ORDERED: [UNRECOGNIZED DRUG - OTHER] IV ONE (16:00)
[2021-06-04] MEDS ORDERED: FLU QUAD HIGH DOSE 240 MCG/0.7 ML 2021-22 (FLUZONE) IM ONE (16:15)
[2021-06-04] MEDS: TAMSULOSIN 0.4 MG (FLOMAX) CAP PO SCH (17:45)
[2021-06-04] MEDS ORDERED: ceFAZolin INJECTION 1,000 MG in WATER (STERILE) FOR INJECTION 10 ML IV SCH (20:00)
[2021-06-04] MEDS: SINEMET CR 50/200 (CARBIDOPA/LEVODOPA SA) TAB PO SCH (21:03)
[2021-06-04] MEDS: CLINDAMYCIN 600 MG/50 ML IVPB 50 ML IV SCH (21:03)
[2021-06-04] MEDS: SERTRALINE 50 MG (ZOLOFT) TABLET PO SCH (21:03)
[2021-06-04] MEDS: BETHANECHOL 25 MG (URECHOLINE) TAB PO SCH (21:03)
[2021-06-04] MEDS: DIVALPROEX 250 MG DELAYED RELEASE (DEPAKOTE) TAB PO SCH (21:03)
[2021-06-04] MEDS: SENNA W/DOCUSATE (SENOKOT S) TABLET PO SCH (21:03)
--- NOTE | 2021-06-05 01:40 | OPERATIVE REPORT ---
DATE OF SERVICE: 06/04/2021 PREOPERATIVE DIAGNOSIS: Displaced closed right intertrochanteric femur fracture. POSTOPERATIVE DIAGNOSIS: Displaced closed right intertrochanteric femur fracture. PROCEDURE: Right hip intramedullary nail. SURGEON: Rashad Jasso MD COUNTER TACKER: Pino Barry, who assisted throughout the procedure and closed the incisions. ANESTHESIA: General endotracheal by Tonio Meza CRNA. ESTIMATED BLOOD LOSS: 100 mL. DRAINS: None. COMPLICATIONS: None. POSTOPERATIVE PLAN: Weightbearing as tolerated with a walker, right lower extremity. The patient was transported to the recovery room awake and in stable condition. MATERIALS: Synthes short hip nail, 12 mm with 100 mm blade distal locking screw. STATEMENT OF MEDICAL NECESSITY: The patient is an 85-year-old gentleman who fell at home this morning and presented to an outside facility. He was found to have a displaced right intertrochanteric femur fracture. Requested treatment here and was transferred to [facility]. He was counseled regarding treatment options and elected to proceed with surgical intervention. DESCRIPTION OF PROCEDURE: After risks and benefits of procedure were discussed and questions were answered with the patient and his daughter and informed consent was signed and placed on chart, the operative site was confirmed in the preoperative holding area initialed by the surgeon. The patient was then transported to the operating room. After adequate levels of general endotracheal anesthetic were obtained, a timeout was called, confirming the operative site. The patient was carefully placed on the fracture table. Gentle longitudinal traction was applied. Fluoroscopy in the AP and lateral planes revealed anatomic reduction of the fracture of the right hip. The right hip and lower extremity were prepped and draped in the usual sterile fashion. A longitudinal incision was made from the greater trochanter extending proximally. The iliotibial band was incised in line with the incision. The tip of the greater trochanter was identified and under fluoroscopic guidance, a guidewire was passed. Fluoroscopy in AP and lateral planes revealed well-placed guidewire. This was then overreamed with the proximal reamer. A 12 mm short nail was then placed and then through a stab incision, the guidewire was passed into the femoral head. This was felt to be in excellent position in the AP and lateral planes. This was then overdrilled and a 100 mm blade was placed. This was then not statically locked proximally in order to slide. Through the same distal incision, the guide was passed for the distal locking screw. The drill was passed and a 38 mm distal locking screw was placed and found to be in excellent position in AP, lateral and oblique planes. Fluoroscopy in AP and lateral planes revealed anatomic reduction of the fracture with well-placed hardware. The wounds were copiously irrigated. The iliotibial band was closed in [id number] interrupted fashion with #1 Vicryl, 2-0 Vicryl was used to reapproximate subcutaneous tissue at both incisions and shakeel were used to close the skin. A soft dressing was applied. The patient was transferred to the recovery room awake and in stable condition. Job ID: [id number] DocumentID: [id number] Dictated Date: 06/04/2021 15:36:26 Director Of Residential Services Date: 06/05/2021 01:39:35 Dictated By: RASHAD AJSSO MD
[2021-06-05 04:00] VITALS: BP 101/61
[2021-06-05] MEDS: CLINDAMYCIN 600 MG/50 ML IVPB 50 ML IV SCH (05:44)
[2021-06-05] MEDS: fentaNYL INJ 100 MCG/2 ML AMP IVP PRN ×2 (06:01→12:02)
[2021-06-05 06:24] LABS: HEMATOCRIT 29 % (40-54); HEMOGLOBIN 9.9 g/dL (13.3-17.7); MEAN CORPUSCULAR HEMOGLOBIN 36 pg (25-34); MEAN CORPUSCULAR HGB CONC 34 g/dL (32-36); MEAN CORPUSCULAR VOLUME 104 fL (80-99); MEAN PLATELET VOLUME 10.7 fL (9.0-12.2); PLATELET COUNT 147 10^3/uL (130-400); WHITE BLOOD COUNT 9.7 10^3/uL (4.3-11.0)
[2021-06-05 06:36] LABS: POTASSIUM 4.1 MMOL/L (3.6-5.0)
[2021-06-05 06:38] LABS: CALCIUM 8.6 MG/DL (8.5-10.1)
[2021-06-05 06:42] LABS: CREATININE SERUM 0.77 MG/DL (0.60-1.30)
[2021-06-05 07:30] VITALS: BP 87/54
--- NOTE | 2021-06-05 07:59 | Progress Note ---
Standard Progress Note Progress Notes/Assess & Plan Date Seen by a Provider: Jun 05, 2021 Time Seen by a Provider: 07:58 Progress/Assessment & Plan no complaints Vital Signs Date Time Temp Pulse Resp B/P (MAP) Pulse Ox O2 Delivery O2 Flow Rate FiO2 06/05/21 04:00 36.8 78 18 101/61 (74) 91 Room Air 06/05/21 01:00 82 06/04/21 23:30 36.5 87 18 131/74 (93) 91 Room Air 06/04/21 20:05 36.0 93 16 106/71 (83) 92 Room Air 06/04/21 20:00 Room Air 06/04/21 19:00 89 06/04/21 18:48 Room Air 06/04/21 17:23 37.1 91 16 107/75 (86) 98 Nasal Cannula 2.00 06/04/21 16:45 Nasal Cannula 2 06/04/21 16:45 36.2 20 111/70 (84) 98 Nasal Cannula 2 06/04/21 16:30 20 109/75 (86) 98 Nasal Cannula 2 06/04/21 16:30 Nasal Cannula 2 06/04/21 16:20 20 118/79 (92) 98 Nasal Cannula 2 06/04/21 16:15 Nasal Cannula 3 06/04/21 16:10 20 118/76 (90) 99 Nasal Cannula 3 06/04/21 16:00 36.2 89 20 118/76 (90) 99 Nasal Cannula 3.00 3.00 06/04/21 16:00 20 118/76 (90) 99 OxyMask 3 06/04/21 16:00 Nasal Cannula 3 06/04/21 15:50 18 107/64 (78) 100 OxyMask 3 06/04/21 15:44 36.2 18 102/64 (77) 100 OxyMask 5 06/04/21 15:44 OxyMask 5 06/04/21 13:36 Room Air 06/04/21 12:39 89 06/04/21 12:00 36.3 96 18 140/90 (107) 93 Room Air 06/04/21 10:30 96 18 140/90 93 Room Air 06/04/21 09:15 36.3 93 18 150/89 (109) 94 Room Air 06/04/21 09:15 36.3 93 18 150/89 (109) 94 Room Air I & O 06/05/21 07:00 Intake Total 3250 ml Output Total 575 ml Balance 2675 ml Laboratory Tests Test 06/04/21 11:50 06/04/21 12:10 06/05/21 05:35 Range/Units Valproic Acid (Depakene) Level < 2.0 L 50.0-100.0 UG/ML SARS-CoV-2 RNA (RT-PCR) Not Detected Not Detecte White Blood Count 9.7 4.3-11.0 10^3/uL Red Blood Count 2.78 L 4.30-5.52 10^6/uL Hemoglobin 9.9 L 13.3-17.7 g/dL Hematocrit 29 L 40-54 % Mean Corpuscular Volume 104 H 80-99 fL Mean Corpuscular Hemoglobin 36 H 25-34 pg Mean Corpuscular Hemoglobin Concent 34 32-36 g/dL Red Cell Distribution Width 13.7 10.0-14.5 % Platelet Count 147 130-400 10^3/uL Mean Platelet Volume 10.7 9.0-12.2 fL Sodium Level 138 135-145 MMOL/L Potassium Level 4.1 3.6-5.0 MMOL/L Chloride Level 106 98-107 MMOL/L Carbon Dioxide Level 23 21-32 MMOL/L Anion Gap 9 5-14 MMOL/L Blood Urea Nitrogen 12 7-18 MG/DL Creatinine 0.77 0.60-1.30 MG/DL Estimat Glomerular Filtration Rate 96 BUN/Creatinine Ratio 16 Glucose Level 132 H 70-105 MG/DL Calcium Level 8.6 8.5-10.1 MG/DL R hip dressing intact Intact DF and PF of toes and ankle. Intact sensatin to light touch throughout pulses equal s/p R hip Im vikash PT/OT WBAT with walker DALTONU OBED Springer MD Jun 05, 2021 07:59
[2021-06-05] MEDS: LACTATED RINGERS 1,000 ML IV SCH ×2 (08:02→16:03)
--- NOTE | 2021-06-05 08:11 | Progress Note ---
Subjective Subjective Date Seen by Provider: Jun 05, 2021 Time Seen by Provider: 08:06 Patient is a follow up day 1 s/p right hip intramedullary nail placement due to a right hip fracture and history of HTN, previous atrial fibrillation with clip to atrial appendage, pacemaker, history of CVA with ongoing weakness, parkinson's, hyperlipidemia. Patient reports right hip/knee/ankle pain and pain was well controlled fentanyl, but not dilaudid. Has not had BM or passed any gas since surgery yet. Denies any numbness, tingling, fever, chills, nausea, vomiting, and diarrhea. Review of Systems General: No Chills HEENT: No Head Aches, No Visual Changes, No Sore Throat Pulmonary: No Dyspnea, No Cough Cardiovascular: No: Chest Pain, Palpitations, Edema Gastrointestinal: No: Nausea, Vomiting, Diarrhea Musculoskeletal: leg pain (right hip, knee, and ankle) Neurological: Weakness; No: Numbness All Other Systems Reviewed All Other Systems Reviewed: Yes Objective Exam Vital Signs Vital Signs Date Time Temp Pulse Resp B/P (MAP) Pulse Ox O2 Delivery O2 Flow Rate FiO2 06/05/21 04:00 36.8 78 18 101/61 (74) 91 Room Air 06/05/21 01:00 82 06/04/21 23:30 36.5 87 18 131/74 (93) 91 Room Air 06/04/21 20:05 36.0 93 16 106/71 (83) 92 Room Air 06/04/21 20:00 Room Air 06/04/21 19:00 89 06/04/21 18:48 Room Air 06/04/21 17:23 37.1 91 16 107/75 (86) 98 Nasal Cannula 2.00 06/04/21 16:45 Nasal Cannula 2 06/04/21 16:45 36.2 20 111/70 (84) 98 Nasal Cannula 2 06/04/21 16:30 20 109/75 (86) 98 Nasal Cannula 2 06/04/21 16:30 Nasal Cannula 2 06/04/21 16:20 20 118/79 (92) 98 Nasal Cannula 2 06/04/21 16:15 Nasal Cannula 3 06/04/21 16:10 20 118/76 (90) 99 Nasal Cannula 3 06/04/21 16:00 36.2 89 20 118/76 (90) 99 Nasal Cannula 3.00 3.00 10/24/21 16:00 20 118/76 (90) 99 OxyMask 3 06/04/21 16:00 Nasal Cannula 3 06/04/21 15:50 18 107/64 (78) 100 OxyMask 3 06/04/21 15:44 36.2 18 102/64 (77) 100 OxyMask 5 06/04/21 15:44 OxyMask 5 06/04/21 13:36 Room Air 06/04/21 12:39 89 06/04/21 12:00 36.3 96 18 140/90 (107) 93 Room Air 06/04/21 10:30 96 18 140/90 93 Room Air 06/04/21 09:15 36.3 93 18 150/89 (109) 94 Room Air 06/04/21 09:15 36.3 93 18 150/89 (109) 94 Room Air I & O 06/05/21 07:00 Intake Total 3250 ml Output Total 575 ml Balance 2675 ml General Appearance: No Apparent Distress HEENT: PERRL/EOMI Neck: Normal Inspection, Non Tender Respiratory: Chest Non Tender, Lungs Clear Gastrointestinal: Non Tender, Soft Extremity: No Calf Tenderness, No Pedal Edema, Other (L 4th digit amputated) Neurologic/Psychiatric: Alert, Oriented x3 Skin: Warm/Dry Results Lab Laboratory Tests 06/04/21 11:50: Valproic Acid (Depakene) Level < 2.0L 06/04/21 12:10: SARS-CoV-2 RNA (RT-PCR) Not Detected 06/05/21 05:35: White Blood Count 9.7, Red Blood Count 2.78L, Hemoglobin 9.9L, Hematocrit 29L, Mean Corpuscular Volume 104H, Mean Corpuscular Hemoglobin 36H, Mean Corpuscular Hemoglobin Concent 34, Red Cell Distribution Width 13.7, Platelet Count 147, Mean Platelet Volume 10.7, Sodium Level 138, Potassium Level 4.1, Chloride Level 106, Carbon Dioxide Level 23, Anion Gap 9, Blood Urea Nitrogen 12, Creatinine 0.77, Estimat Glomerular Filtration Rate 96, BUN/Creatinine Ratio 16, Glucose Level 132H, Calcium Level 8.6 Microbiology 06/04/21 MRSA Screen - Final, Complete MRSA not isolated Assessment/Plan Assessment/Plan Assessment and Plan 1. S/P Right hip intramedullary nail placement--will need rehab, monitor Hgb/Hct, lovenox DVT ppx 2. Conversational Dyspnea--decrease IV fluids, on oxygen, use incentive spirometer 10x/hr, chest xray 3. Hypertension/Pacemaker--resume home meds 4. Parkinson's--on Sinemet 5. History of CVA with Residual Weakness/Deficits--stable 6. Right Hip/Femur Fracture--surgery was performed yesterday Supervisory-Addendum Brief Verification & Attestation Participated in pt care: history, physical Personally performed: exam, history, supervision of care Care discussed with: Medical Student Procedures: n/a Procedure type: I&D Results interpretation: Verified all documentation Patient seen and assessed and agree with above assessment and plan. RONNIE HARTLEY Jun 05, 2021 08:11 NAPOLEON AKHTAR DO Jun 05, 2021 18:07
[2021-06-05] MEDS ORDERED: BETH50TA2 PO (08:31)
[2021-06-05] MEDS ORDERED: POTA10CA43 PO (08:35)
[2021-06-05] MEDS ORDERED: CARB1TAB41 PO (08:35)
[2021-06-05] MEDS ORDERED: CETI10TA17 PO (08:36)
[2021-06-05] MEDS ORDERED: POLY1DRO OP (08:37)
[2021-06-05] MEDS ORDERED: FURO40TA4 PO (08:39)
[2021-06-05] MEDS: ASPIRIN E.C. 81 MG (ECOTRIN) TAB PO SCH (08:47)
[2021-06-05] MEDS: BETHANECHOL 25 MG (URECHOLINE) TAB PO SCH ×2 (08:47→22:06)
[2021-06-05] MEDS: PANTOPRAZOLE 40 MG (PROTONIX) TAB PO SCH (08:47)
[2021-06-05] MEDS: ENOXAPARIN 40 MG/0.4 ML (LOVENOX) SYR SC SCH (08:47)
[2021-06-05] MEDS: VITAMIN D3 125 MCG (5,000 UNITS) CAPSULE PO SCH (08:48)
[2021-06-05] MEDS: SENNA W/DOCUSATE (SENOKOT S) TABLET PO SCH ×2 (08:48→22:05)
[2021-06-05] MEDS: SINEMET CR 50/200 (CARBIDOPA/LEVODOPA SA) TAB PO SCH ×2 (08:48→22:13)
[2021-06-05] MEDS: DIVALPROEX 250 MG DELAYED RELEASE (DEPAKOTE) TAB PO SCH ×2 (08:48→22:05)
--- NOTE | 2021-06-05 09:00 | Cardiology Progress Note ---
Subjective Date Seen by Provider: Jun 05, 2021 Time Seen by Provider: 08:58 Subjective/Events-last exam Patient is sitting up in bed, eating breakfast. Denies any chest pain or dyspnea. Review of Systems General: No Chills, No Night Sweats; Fatigue; No Malaise, No Appetite, No Other HEENT: No Head Aches, No Visual Changes, No Eye Pain, No Ear Pain, No Dysphasia, No Sinus Congestion, No Post Nasal Drip, No Sore Throat, No Other Pulmonary: No Dyspnea, No Cough, No Pleuritic Chest Pain, No Other Cardiovascular: No: Chest Pain, Palpitations, Orthopnea, Paroxysmal Noc. Dyspnea, Edema, Lt Headedness, Other Objective-Cardiology Exam Last Set of Vital Signs Vital Signs 06/05/21 06/05/21 07:30 08:00 Temp 35.9 Pulse 81 Resp 19 B/P (MAP) 87/54 (65) Pulse Ox 93 O2 Delivery Nasal Cannula O2 Flow Rate 2.00 I&O Intake and Output 06/05/21 00:00 Intake Total 3150 ml Output Total 400 ml Balance 2750 ml Intake Oral 100 ml IV Total 3050 ml Output Urine Total 400 ml Daily Weight Change No General: Alert, Oriented X3, Cooperative HEENT: Atraumatic, PERRLA Lungs: Clear to Auscultation, Normal Air Movement Heart: Normal S1, Normal S2, Other (irregularly irregular) Abdomen: Normal Bowel Sounds, Soft Extremities: No Clubbing, Other (trace edema RLE) Neuro: Cranial Nerves 3-12 NL Psych/Mental Status: Mental Status NL, Mood NL Results Lab Laboratory Tests 06/05/21 05:35 A/P-Cardiology Admission Diagnosis Right hip fracture Chronic atrial fibrillation Permanent pacemaker Hypertension Assessment/Plan Right hip fracture, s/p repain with Dr. Hawkins on June 05, 2021, starting physical therapy. Chronic persistent atrial fibrillation, rate is controlled. Has underlying sinus node dysfunction and permanent pacemaker. Continue to monitor [id number] score 4, yearly risk of stroke without oral anticoagulation is 4%. Patient has history of embolic stroke and hemorrhagic stroke, unable to tolerate oral anticoagulation and had ELHAM clip done at . Sinus node dysfunction, permanent pacemaker, had generator replacement done in April 2020. Continue to monitor Hypertension, currently borderline hypotensive, continue to monitor. Hyperlipidemia, restart home medication monitor lipids History of seizure disorder. Continue to monitor Mild bilateral carotid stenosis, continue to monitor Supervisory-Addendum Brief Supervisory Addendum Participated in pt care: history, MDM, physical Personally performed: exam, history, MDM Care discussed with: ALBINO Results interpretation: Verified all documentation Notes: Patient was seen and evaluated with Gissell, examination performed, management plan was discussed, agree with the current scribed note, I made few changes to the note using Italic font Patient was seen at bedside, laying down comfortably, still having pain at the surgical site Continue to monitor EKG, blood pressure No changes were recommended at this point GISSELL MESSINA Jun 05, 2021 09:00 KEDAR BOYKIN MD Jun 05, 2021 10:35
--- NOTE | 2021-06-05 10:24 | Physical Therapy Evaluation ---
PT Evaluation-General Medical Diagnosis Admission Date Jun 04, 2021 at 09:55 Medical Diagnosis: Right hip fracture with IM nail Onset Date: Jun 04, 2021 Therapy Diagnosis Therapy Diagnosis: Gait deficit, strength deficit Height/Weight Height (Feet): 5 Height (Inches): 4.00 Weight (Pounds): 166 Weight (Ounces): 3.0 Precautions Precautions/Isolations: Fall Prevention, Standard Precautions, Pressure Ulcer Weight Bear Status Right Lower Extremity: Right Weight Bearing/Tolerated Referral Physician: Dr. Hawkins Reason for Referral: Evaluation/Treatment Medical History Pertinent Medical History: Atrial Fib, Arthritis, CAD, CVA, GERD, HTN, OA, P arkinson's, Smoking Social History Home: Single Level Current Living Status: Children Entry Into Home: Stairs With Railing PT Steps Into Home: 4 Prior Prior Level of Function SCALE: Activities may be completed with or without assistive devices. 0-Iatnhksvgn-kfaztup completes the activity by him/herself with no assistance from a helper. 5-Set-up or Clean-up Assistance-helper sets up or cleans up; patient completes activity. [place] assists only prior to or following the activity. 4-Supervision or Touching Assistance-helper provides verbal cues and/or touching/steadying and/or contact guard assistance as patient completes activity. Assistance may be provided throughout the activity or intermittently. 3-Partial/Moderate Assistance-helper does LESS THAN HALF the effort. [place] lifts, holds or supports trunk or limbs, but provides less than half the effort. 2-Substantial/Maximal Assistance-helper does MORE THAN HALF the effort. [place] lifts or holds trunk or limbs and provides more than half the effort. 8-Uvkpjhihs-eooabu does ALL the effort. Patient does none of the effort to complete the activity. Or, the assistance of 2 or more helpers is required for the patient to complete the activity. If activity was not attempted, code reason: 7-Patient Refused. 9-Not Applicable-not attempted and the patient did not perform the activity before the current illness, exacerbation or injury. 10-Not Attempted due to Environmental Limitations-(lack of equipment, weather restraints, etc.). 88-Not Attempted due to Medical Conditions or Safety Concerns. Bed Mobility: 6 Transfers (B,C,W/C): 6 Gait: 6 Stairs: 6 Indoor Mobility (Ambulation): Independent Stairs: Independent Prior Devices Use: Walker Prior Device Use: Platform FWW PT Evaluation-Current Subjective Patient reports pain currently is 3/10 in the right thigh. Patient lying supine in bed upon PT arrival, agreeable to treatment. Objective Patient Orientation: Person, Place, Time, Situation Attachments: Oxygen, Mclaughlin Catheter, IV ROM/Strength ROM Lower Extremities Right hip limited all planes secondary to recent hip fracture; left LE limited all planes secondary to previous CVA Strength Lower Extremities Right LE 3-/5 all planes via observation; Left hip 3/5; knee 3/5; ankle 3/5 Sensory Vision: Functional Hearing: Functional Sensation Right Lower Extremit: Intact Sensation Left Lower Extremity: Intact Transfers Roll Left to Right (QC): 2 Sit to Lying (QC): 2 Lying to Sitting/Side of Bed(Q: 2 Sit to Stand (QC): 1 Chair/Wuh-lz-Hpjwz Xfer(QC): 1 Gait Does the Patient Walk?: No and Walking Goal IS indicated Mode of Locomotion: Walk Anticipated Mode of Locomotion: Walk Walk 10 feet (QC): 88 Gait Assistive Device: FWW Comments/Gait Description Patient reports he uses a platform FWW at home at baseline. Family reports his son can bring it to him, but not until Saturday. Wheelchair Training Does the Pt Use a Wheelchair?: No Balance Sitting Static: Poor Sitting Dynamic: Poor Standing Static: Poor Standing Dynamic: Poor Assessment/Needs Patient lying supine in bed upon PT arrival, WBAT right LE per nursing and orders. Patient performs all observed bed mobility and transfers with max/total A. He has some residual weakness from a previous CVA. Patient is unable to obtain neutral stance with FWW, with max A from PT on 2 attempts. Patient stand pivot transfer to chair with max A. Patient in chair post treatment with all needs met, nursing notified, call light in hand, family in the room. Rehab Potential: Fair PT Short Term Goals Short Term Goals Time Frame: Jun 19, 2021 Roll Left & Right: 3 Sit to lyin Lying to sitting on side of be: 3 Sit to stand: 3 Chair/olu-mn-fowmk transfer: 3 Toilet transfer: 3 Walk 10 feet: 2 Walk 50 feet with two turns: 2 PT Penitentiary Goals Penitentiary Goals PT Penitentiary Goals Time Frame: Jul 10, 2021 Roll Left & Right (QC): 5 Sit to Lying (QC): 5 Lying-Sitting on Side/Bed(QC): 5 Sit to Stand (QC): 5 Chair/Mkc-yy-Wzljz Xfer(QC): 5 Toilet Transfer (QC): 5 Car Transfer (QC): 4 Does the Patient Walk: Yes Walk 10 feet (QC): 4 Walk 50ft with 2 Turns (QC): 4 Walk 150 ft (QC): 3 Does the Pt use WC or Scooter?: No PT Plan Problem List Problem List: Activity Tolerance, Functional Strength, Safety, Balance, Gait, Transfer, Bed Mobility, ROM Treatment/Plan Treatment Plan: Continue Plan of Care Treatment Plan: Bed Mobility, Education, Functional Activity Vandana, Functional Strength, Group Therapy, Gait, Safety, Therapeutic Exercise, Transfers Treatment Duration: Aug 09, 2021 Frequency: 6 times per week Estimated Hrs Per Day: .25 hour per day Safety Risks/Education Patient Education: Gait Training, Transfer Techniques, Reviewed Precautions Teaching Recipient: Patient, Family Teaching Methods: Demonstration, Discussion Response to Teaching: Verbalize Understanding, Reinforcement Needed Discharge Recommendations Target Placement SNF unless drastic improvements made as patient requires max/total assistance for all transfers and bed mobility. Due to previous neurological diagnoses, patient will need more assistance and care initially. Time/GCodes Time In: 939 Time Out: 1005 Total Billed Treatment Time: 25 Total Billed Treatment Visit, JAME Wu JOHN A PT Jun 05, 2021 10:24
[2021-06-05 12:00] VITALS: BP 94/55
[2021-06-05] MEDS ORDERED: FUROSEMIDE 40 MG/4 ML INJ (LASIX) IVP ONE (14:00)
[2021-06-05] MEDS ORDERED: KCL 20 MEQ TAB (K-DUR) PO ONE (14:15)
--- NOTE | 2021-06-05 14:18 | Physical Therapy Daily Note ---
PT Daily Note-Current Subjective Patient rates right hip/thigh pain at 3/10. Reports he "just layed down in bed because I've been up all day." Mental Status Patient Orientation: Person Attachments: Oxygen, Mclaughlin Catheter, IV Transfers SCALE: Activities may be completed with or without assistive devices. 6-Evypohzzdu-primrvw completes the activity by him/herself with no assistance from a helper. 5-Set-up or Clean-up Assistance-helper sets up or cleans up; patient completes activity. [place] assists only prior to or following the activity. 4-Supervision or Touching Assistance-helper provides verbal cues and/or touching/steadying and/or contact guard assistance as patient completes activity. Assistance may be provided throughout the activity or intermittently. 3-Partial/Moderate Assistance-helper does LESS THAN HALF the effort. [place] lifts, holds or supports trunk or limbs, but provides less than half the effort. 2-Substantial/Maximal Assistance-helper does MORE THAN HALF the effort. [place] lifts or holds trunk or limbs and provides more than half the effort. 0-Tkoiurkdk-jejypn does ALL the effort. Patient does none of the effort to complete the activity. Or, the assistance of 2 or more helpers is required for the patient to complete the activity. If activity was not attempted, code reason: 7-Patient Refused. 9-Not Applicable-not attempted and the patient did not perform the activity before the current illness, exacerbation or injury. 10-Not Attempted due to Environmental Limitations-(lack of equipment, weather restraints, etc.). 88-Not Attempted due to Medical Conditions or Safety Concerns. Weight Bearing Right Lower Extremity: Right Weight Bearing/Tolerated Gait Training Does the Patient Walk?: No and Walking Goal IS indicated Exercises Supine Ex: Ankle pumps, Quad Set, Glut sets, Heel Slides, Short Arc Quads, Straight leg raise, Hip abd/add, Bicep Curls Supine Reps: 20 Assessment Current Status: Fair Progress Patient tolerated treatment fair. No bed mobility or transfer training due to patient being fatigued and having just gotten back into bed. Patient performs LE therapeutic exercise as listed above. Patient in bed post treatment with all needs met, nursing notified, daughter in the room and call light in reach. PT Short Term Goals Short Term Goals Time Frame: Jun 19, 2021 Roll Left & Right: 3 Sit to lyin Lying to sitting on side of be: 3 Sit to stand: 3 Chair/gbn-kv-vujft transfer: 3 Toilet transfer: 3 Walk 10 feet: 2 Walk 50 feet with two turns: 2 PT Alf Goals Alf Goals PT Breakdown Worker Goals Time Frame: Jul 10, 2021 Roll Left & Right (QC): 5 Sit to Lying (QC): 5 Lying-Sitting on Side/Bed(QC): 5 Sit to Stand (QC): 5 Chair/Foz-vf-Nbisn Xfer(QC): 5 Toilet Transfer (QC): 5 Car Transfer (QC): 4 Does the Patient Walk: Yes Walk 10 feet (QC): 4 Walk 50ft with 2 Turns (QC): 4 Walk 150 ft (QC): 3 Does the Pt use WC or Scooter?: No PT Plan Treatment/Plan Treatment Plan: Continue Plan of Care Treatment Plan: Bed Mobility, Education, Functional Activity Vandana, Functional Strength, Group Therapy, Gait, Safety, Therapeutic Exercise, Transfers Treatment Duration: Aug 09, 2021 Frequency: 6 times per week Estimated Hrs Per Day: .25 hour per day Safety Risks/Education Patient Education: Reviewed Precautions Teaching Recipient: Patient, Family Teaching Methods: Demonstration, Discussion Response to Teaching: Verbalize Understanding, Return Demonstration Time/GCodes Time In: 1354 Time Out: 1410 Total Billed Treatment Time: 16 Total Billed Treatment Visit, Ex KAJAL DYE PT Jun 05, 2021 14:18
[2021-06-05 15:59] VITALS: BP 93/60
[2021-06-05] MEDS: TAMSULOSIN 0.4 MG (FLOMAX) CAP PO SCH (17:56)
[2021-06-05 19:54] VITALS: BP 88/55
[2021-06-05] MEDS: SERTRALINE 50 MG (ZOLOFT) TABLET PO SCH (22:05)
[2021-06-05 23:59] VITALS: BP 113/56
[2021-06-06] VITALS (9 sets, daily range): BP systolic 98–120; BP diastolic 51–73
[2021-06-06] MEDS: LACTATED RINGERS 1,000 ML IV SCH ×2 (02:52→20:45)
[2021-06-06 04:56] LABS: HEMOGLOBIN 7.9 g/dL (13.3-17.7)
[2021-06-06 05:15] LABS: CALCIUM 8.5 MG/DL (8.5-10.1)
[2021-06-06 05:19] LABS: CREATININE SERUM 0.79 MG/DL (0.60-1.30)
--- NOTE | 2021-06-06 07:45 | Progress Note ---
Subjective Subjective Date Seen by Provider: Jun 06, 2021 Time Seen by Provider: 08:15 Patient is a follow up day 2 s/p right hip intramedullary nail placement due to a right hip fracture and history of HTN, previous atrial fibrillation with clip to atrial appendage, pacemaker, history of CVA with ongoing weakness, parkinson's, hyperlipidemia. Family reports confusion onset yesterday and hoarse voice, but eating/drinking well. Patient is passing gas. Denies any fever, chills, nausea, vomiting, diarrhea, or chest pain. Hgb dropped to 7.9 today and will transfuse 1 unit PRBCs. Review of Systems General: No Chills HEENT: No Head Aches, No Visual Changes Pulmonary: No Dyspnea, No Cough Cardiovascular: No: Chest Pain, Palpitations, Edema Gastrointestinal: No: Nausea, Vomiting, Diarrhea Musculoskeletal: leg pain (right hip, knee, and ankle) Neurological: Weakness, Change in speech, Confusion; No: Numbness All Other Systems Reviewed All Other Systems Reviewed: Yes Objective Exam Vital Signs Vital Signs Date Time Temp Pulse Resp B/P (MAP) Pulse Ox O2 Delivery O2 Flow Rate FiO2 06/06/21 03:45 37.3 85 20 106/60 (75) 93 Nasal Cannula 2.00 06/06/21 00:59 84 06/05/21 23:59 37.2 98 22 113/56 (75) 93 Nasal Cannula 2.00 06/05/21 20:00 Nasal Cannula 2.00 06/05/21 19:54 36.8 106 18 88/55 (66) 93 Nasal Cannula 2.00 06/05/21 19:00 108 06/05/21 15:59 36.8 84 18 93/60 (71) 93 Nasal Cannula 2.00 06/05/21 14:42 92 Nasal Cannula 2.00 06/05/21 13:00 56 06/05/21 12:00 36.2 86 24 94/55 (68) 95 Nasal Cannula 2.00 06/05/21 08:00 Nasal Cannula 2.00 I & O 06/06/21 07:00 Intake Total 4775 ml Output Total 1175 ml Balance 3600 ml General Appearance: No Apparent Distress HEENT: PERRL/EOMI Neck: Normal Inspection, Non Tender Respiratory: Chest Non Tender, Lungs Clear Cardiovascular: Regular Rate, Rhythm, Systolic Murmur Gastrointestinal: Non Tender, Soft Extremity: No Calf Tenderness, No Pedal Edema, Other (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 S/P Right hip intramedullary nail placement--continue PT/OT, lovenox DVT ppx, H&H dropped to 7.9 today and will transfuse 1 PRBC and continue to monitor 2. Conversational Dyspnea--repeat Lasix, on oxygen, use incentive spirometer 10x/hr, chest xray 3. Hypertension/Pacemaker--resume home meds 4. Parkinson's--on Sinemet 5. History of CVA with Residual Weakness/Deficits--stable 6. Right Hip/Femur Fracture--surgery was performed two days ago GI ppx w/ Protonix Supervisory-Addendum Brief Verification & Attestation Participated in pt care: history, physical Personally performed: exam, history, supervision of care Care discussed with: Medical Student Procedures: n/a Results interpretation: Verified all documentation Patient seen and examined. Getting ready to do PT. Pain well controlled. Denied dizziness. Agree with above assessment and plan. RONNIE HARTLEY Jun 06, 2021 07:45 NAPOLEON AKHTAR DO Jun 06, 2021 18:41
[2021-06-06] MEDS ORDERED: NS IV 500 ML 500 ML IV SCH (08:45)
--- NOTE | 2021-06-06 08:46 | Cardiology Progress Note ---
Subjective Date Seen by Provider: Jun 06, 2021 Time Seen by Provider: 08:45 Subjective/Events-last exam Patient was seen at bedside, laying down comfortably, still having some shortness of breath. Review of Systems General: No Chills, No Night Sweats; Fatigue; No Malaise, No Appetite, No Other HEENT: No Head Aches, No Visual Changes, No Eye Pain, No Ear Pain, No Dys phasia, No Sinus Congestion, No Post Nasal Drip, No Sore Throat, No Other Pulmonary: Dyspnea; No Cough, No Pleuritic Chest Pain, No Other Cardiovascular: No: Chest Pain, Palpitations, Orthopnea, Paroxysmal Noc. Dyspnea, Edema, Lt Headedness, Other Objective-Cardiology Exam Last Set of Vital Signs Vital Signs 06/06/21 08:40 Temp 37.1 Pulse 90 Resp 22 B/P (MAP) 98/59 (72) Pulse Ox 97 O2 Delivery Nasal Cannula O2 Flow Rate 2.00 I&O Intake and Output 06/06/21 00:00 Intake Total 4800 ml Output Total 1150 ml Balance 3650 ml Intake Oral 800 ml IV Total 4000 ml Output Urine Total 1150 ml General: Alert, Oriented X3, Cooperative HEENT: Atraumatic, PERRLA Lungs: Clear to Auscultation, Normal Air Movement Heart: Normal S1, Normal S2, Other (irregularly irregular) Abdomen: Normal Bowel Sounds, Soft Extremities: No Clubbing, Other (trace edema RLE) Neuro: Cranial Nerves 3-12 NL Psych/Mental Status: Mental Status NL, Mood NL Results Lab Laboratory Tests 06/06/21 04:39 A/P-Cardiology Admission Diagnosis Right hip fracture Chronic atrial fibrillation Permanent pacemaker Hypertension Assessment/Plan Right hip fracture, s/p repain with Dr. Hawkins on June 05, 2021, starting physical therapy. Anemia, hemoglobin 7.9, will transfuse 1 unit of packed RBCs. Monitor H&H Shortness of breath, given Lasix 1 dose yesterday, I will give additional dose of Lasix 40 mg today and monitor tolerance and response. Chronic persistent atrial fibrillation, rate is controlled. Has underlying sinus node dysfunction and permanent pacemaker. Telemetry revealed atrial paced rhythm. [id number] score 4, yearly risk of stroke without oral anticoagulation is 4%. Patient has history of embolic stroke and hemorrhagic stroke, unable to tolerate oral anticoagulation and had ELHAM clip done at . Sinus node dysfunction, permanent pacemaker, had generator replacement done in April 2020. Continue to monitor Hypertension, currently borderline hypotensive, will receive 1 unit packed RBCs. Monitor tolerance and response Hyperlipidemia, continue to monitor lipids History of seizure disorder. Continue to monitor Mild bilateral carotid stenosis, continue to monitor KEDAR BOYKIN MD Jun 06, 2021 08:46
[2021-06-06] MEDS: ENOXAPARIN 40 MG/0.4 ML (LOVENOX) SYR SC SCH (08:54)
[2021-06-06] MEDS: VITAMIN D3 125 MCG (5,000 UNITS) CAPSULE PO SCH (08:55)
[2021-06-06] MEDS: PANTOPRAZOLE 40 MG (PROTONIX) TAB PO SCH (08:55)
[2021-06-06] MEDS: ASPIRIN E.C. 81 MG (ECOTRIN) TAB PO SCH (08:55)
[2021-06-06] MEDS: BETHANECHOL 25 MG (URECHOLINE) TAB PO SCH ×2 (08:55→20:46)
[2021-06-06] MEDS: DIVALPROEX 250 MG DELAYED RELEASE (DEPAKOTE) TAB PO SCH ×2 (08:55→20:46)
[2021-06-06] MEDS: SENNA W/DOCUSATE (SENOKOT S) TABLET PO SCH ×2 (08:55→20:46)
[2021-06-06] MEDS: SINEMET CR 50/200 (CARBIDOPA/LEVODOPA SA) TAB PO SCH ×2 (08:55→20:46)
[2021-06-06] MEDS ORDERED: FUROSEMIDE 40 MG/4 ML INJ (LASIX) IVP NR (09:30)
[2021-06-06] MEDS: ONDANSETRON 4 MG/2 ML (SDV) Z0FRAN IVP PRN (09:55)
--- NOTE | 2021-06-06 10:01 | Diagnostic Imaging Report ---
HISTORY: Dyspnea and hypoxia. Shortness of breath. COMPARISON: 04/06/2020 TECHNIQUE: Frontal view of the chest FINDINGS: Lung volumes are low. There is left basilar atelectasis which appears stable. The left pacemaker leads are stable. No pleural effusion or pneumothorax is seen. IMPRESSION: 1. Low lung volumes with no acute pulmonary abnormality seen. Dictated by: Dictated on workstation # [id number]
--- NOTE | 2021-06-06 10:13 | Physical Therapy Daily Note ---
PT Daily Note-Current Subjective Patient agrees to PT. Pain Numeric Pain Scale: 7 Location: Right Location Body Site: Hip Pain Description: Acute Mental Status Patient Orientation: Person, Time, Situation Attachments: Oxygen, Mclaughlin Catheter, IV Transfers SCALE: Activities may be completed with or without assistive devices. 2-Bmouxewdda-ogttzyu completes the activity by him/herself with no assistance from a helper. 5-Set-up or Clean-up Assistance-helper sets up or cleans up; patient completes activity. [place] assists only prior to or following the activity. 4-Supervision or Touching Assistance-helper provides verbal cues and/or touching/steadying and/or contact guard assistance as patient completes activity. Assistance may be provided throughout the activity or intermittently. 3-Partial/Moderate Assistance-helper does LESS THAN HALF the effort. [place] lifts, holds or supports trunk or limbs, but provides less than half the effort. 2-Substantial/Maximal Assistance-helper does MORE THAN HALF the effort. [place] lifts or holds trunk or limbs and provides more than half the effort. 6-Oviozrzvl-sgqwvs does ALL the effort. Patient does none of the effort to complete the activity. Or, the assistance of 2 or more helpers is required for the patient to complete the activity. If activity was not attempted, code reason: 7-Patient Refused. 9-Not Applicable-not attempted and the patient did not perform the activity before the current illness, exacerbation or injury. 10-Not Attempted due to Environmental Limitations-(lack of equipment, weather restraints, etc.). 88-Not Attempted due to Medical Conditions or Safety Concerns. Roll Left & Right (QC): 1 (x 2) Sit to Lying (QC): 1 (x 2) Lying to Sitting/Side of Bed(Q: 1 (x 2) Sit to Stand (QC): 1 (x 2) Patient requires dependent assist of 2 with blocking knees for sit to stand and is unable to maintain sitting EOB requiring max assist for static seated balance Weight Bearing Right Lower Extremity: Right Weight Bearing/Tolerated Exercises Supine Ex: Ankle pumps, Heel Slides, Straight leg raise Supine Reps: 15 (AAROM x 2 sets) Assessment Patient tolerates minimal activity and remains in bed due to dizziness. Patient requires dependent assist of 2 for all mobility and for repositioning. AAROM bilateral LE exercises. PT Short Term Goals Short Term Goals Time Frame: Jun 19, 2021 Roll Left & Right: 3 Sit to lyin Lying to sitting on side of be: 3 Sit to stand: 3 Chair/eos-jy-bcnbl transfer: 3 Toilet transfer: 3 Walk 10 feet: 2 Walk 50 feet with two turns: 2 PT Stenographer Secretary Goals Jail Goals PT Stenographer Secretary Goals Time Frame: Jul 10, 2021 Roll Left & Right (QC): 5 Sit to Lying (QC): 5 Lying-Sitting on Side/Bed(QC): 5 Sit to Stand (QC): 5 Chair/Xzm-cc-Avors Xfer(QC): 5 Toilet Transfer (QC): 5 Car Transfer (QC): 4 Does the Patient Walk: Yes Walk 10 feet (QC): 4 Walk 50ft with 2 Turns (QC): 4 Walk 150 ft (QC): 3 Does the Pt use WC or Scooter?: No PT Plan Treatment/Plan Treatment Plan: Continue Plan of Care Treatment Plan: Bed Mobility, Education, Functional Activity Vandana, Functional Strength, Group Therapy, Gait, Safety, Therapeutic Exercise, Transfers Treatment Duration: Aug 09, 2021 Frequency: 6 times per week Estimated Hrs Per Day: .25 hour per day Time/GCodes Time In: 830 Time Out: 854 Total Billed Treatment Time: 24 Total Billed Treatment 1 visit EX x 2 24 min RAMBO PAYTON PT Jun 06, 2021 10:13
--- NOTE | 2021-06-06 11:28 | Anesthesia-General Post-Op ---
General Patient Condition Mental Status/LOC: Same as Preop Cardiovascular: Satisfactory Nausea/Vomiting: Absent Respiratory: Satisfactory Pain: Controlled Complications: Absent Post Op Complications Complications None Follow Up Care/Instructions Patient Instructions None needed. Anesthesia/Patient Condition Patient Condition Patient is doing well, no complaints, stable vital signs, no apparent adverse anesthesia problems. No complications reported per nursing. MARTIN MOSELEY CRNA Jun 06, 2021 11:28
--- NOTE | 2021-06-06 12:34 | Progress Note ---
Standard Progress Note Progress Notes/Assess & Plan Date Seen by a Provider: Jun 06, 2021 Time Seen by a Provider: 12:32 Progress/Assessment & Plan no complaints Vital Signs Date Time Temp Pulse Resp B/P (MAP) Pulse Ox O2 Delivery O2 Flow Rate FiO2 06/05/21 04:00 36.8 78 18 101/61 (74) 91 Room Air 06/05/21 01:00 82 06/04/21 23:30 36.5 87 18 131/74 (93) 91 Room Air 06/04/21 20:05 36.0 93 16 106/71 (83) 92 Room Air 06/04/21 20:00 Room Air 06/04/21 19:00 89 06/04/21 18:48 Room Air 06/04/21 17:23 37.1 91 16 107/75 (86) 98 Nasal Cannula 2.00 06/04/21 16:45 Nasal Cannula 2 06/04/21 16:45 36.2 20 111/70 (84) 98 Nasal Cannula 2 06/04/21 16:30 20 109/75 (86) 98 Nasal Cannula 2 06/04/21 16:30 Nasal Cannula 2 06/04/21 16:20 20 118/79 (92) 98 Nasal Cannula 2 06/04/21 16:15 Nasal Cannula 3 06/04/21 16:10 20 118/76 (90) 99 Nasal Cannula 3 06/04/21 16:00 36.2 89 20 118/76 (90) 99 Nasal Cannula 3.00 3.00 06/04/21 16:00 20 118/76 (90) 99 OxyMask 3 06/04/21 16:00 Nasal Cannula 3 06/04/21 15:50 18 107/64 (78) 100 OxyMask 3 06/04/21 15:44 36.2 18 102/64 (77) 100 OxyMask 5 06/04/21 15:44 OxyMask 5 06/04/21 13:36 Room Air 06/04/21 12:39 89 06/04/21 12:00 36.3 96 18 140/90 (107) 93 Room Air 06/04/21 10:30 96 18 140/90 93 Room Air 06/04/21 09:15 36.3 93 18 150/89 (109) 94 Room Air 06/04/21 09:15 36.3 93 18 150/89 (109) 94 Room Air I & O 06/05/21 07:00 Intake Total 3250 ml Output Total 575 ml Balance 2675 ml Laboratory Tests Test 06/04/21 11:50 06/04/21 12:10 06/05/21 05:35 Range/Units Valproic Acid (Depakene) Level < 2.0 L 50.0-100.0 UG/ML SARS-CoV-2 RNA (RT-PCR) Not Detected Not Detecte White Blood Count 9.7 4.3-11.0 10^3/uL Red Blood Count 2.78 L 4.30-5.52 10^6/uL Hemoglobin 9.9 L 13.3-17.7 g/dL Hematocrit 29 L 40-54 % Mean Corpuscular Volume 104 H 80-99 fL Mean Corpuscular Hemoglobin 36 H 25-34 pg Mean Corpuscular Hemoglobin Concent 34 32-36 g/dL Red Cell Distribution Width 13.7 10.0-14.5 % Platelet Count 147 130-400 10^3/uL Mean Platelet Volume 10.7 9.0-12.2 fL Sodium Level 138 135-145 MMOL/L Potassium Level 4.1 3.6-5.0 MMOL/L Chloride Level 106 98-107 MMOL/L Carbon Dioxide Level 23 21-32 MMOL/L Anion Gap 9 5-14 MMOL/L Blood Urea Nitrogen 12 7-18 MG/DL Creatinine 0.77 0.60-1.30 MG/DL Estimat Glomerular Filtration Rate 96 BUN/Creatinine Ratio 16 Glucose Level 132 H 70-105 MG/DL Calcium Level 8.6 8.5-10.1 MG/DL R hip dressing intact Intact DF and PF of toes and ankle. Intact sensatin to light touch throughout pulses equal s/p R hip Im vikash PT/OT WBAT with walker IRU eval Final Diagnosis weak today receiving PRBC Vital Signs Date Time Temp Pulse Resp B/P (MAP) Pulse Ox O2 Delivery O2 Flow Rate FiO2 06/06/21 11:26 95 Nasal Cannula 2.00 06/06/21 11:23 36.3 88 20 106/68 (81) 95 Nasal Cannula 2.00 06/06/21 10:37 37.2 89 20 100/58 93 Nasal Cannula 2.00 06/06/21 10:14 37.0 92 20 100/51 95 Nasal Cannula 2.00 06/06/21 08:40 37.1 90 22 98/59 (72) 97 Nasal Cannula 2.00 06/06/21 08:00 Nasal Cannula 2.00 06/06/21 07:00 94 06/06/21 03:45 37.3 85 20 106/60 (75) 93 Nasal Cannula 2.00 06/06/21 00:59 84 06/05/21 23:59 37.2 98 22 113/56 (75) 93 Nasal Cannula 2.00 06/05/21 20:00 Nasal Cannula 2.00 06/05/21 19:54 36.8 106 18 88/55 (66) 93 Nasal Cannula 2.00 06/05/21 19:00 108 06/05/21 15:59 36.8 84 18 93/60 (71) 93 Nasal Cannula 2.00 06/05/21 14:42 92 Nasal Cannula 2.00 06/05/21 13:00 56 I & O 06/06/21 07:00 Intake Total 4775 ml Output Total 1175 ml Balance 3600 ml Laboratory Tests Test 06/06/21 04:39 Range/Units Hemoglobin 7.9 #L 13.3-17.7 g/dL Hematocrit 23 L 40-54 % Sodium Level 138 135-145 MMOL/L Potassium Level 4.0 3.6-5.0 MMOL/L Chloride Level 105 98-107 MMOL/L Carbon Dioxide Level 25 21-32 MMOL/L Anion Gap 8 5-14 MMOL/L Blood Urea Nitrogen 15 7-18 MG/DL Creatinine 0.79 0.60-1.30 MG/DL Estimat Glomerular Filtration Rate 94 BUN/Creatinine Ratio 19 Glucose Level 112 H 70-105 MG/DL Calcium Level 8.5 8.5-10.1 MG/DL R hip incision with scant bloody DC no erythema or warmth no calf tendrerness. neg Chepe's s/p R hip IM vikash PT when able OBED JASSO MD Jun 06, 2021 12:34
--- NOTE | 2021-06-06 13:39 | Occupational Therapy Eval ---
OT Evaluation-General/PLF Medical Diagnosis Admission Date Jun 04, 2021 at 09:55 Medical Diagnosis: Right hip fracture with IM nail Onset Date: Jun 04, 2021 Therapy Diagnosis Therapy Diagnosis: Impaired adls, sitting balance, endurance, safety Height/Weight Height (Feet): 5 Height (Inches): 4.00 Weight (Pounds): 166 Weight (Ounces): 3.0 Precautions Precautions/Isolations: Fall Prevention, Standard Precautions Weight Bear Status Weight Bearing Restriction: Weight Bearing/Tolerated Referral Physician: Dr. Hawkins Referral Reason: Evaluation/Treatment Medical History Pertinent Medical History: Atrial Fib, Arthritis, CAD, CVA, GERD, HTN, OA, Parkinson's, Smoking Current History Pt s/p IM nail post R hip fx. Family reports patient found in bathroom with LB clothing down at knees. He lives with son in single story home. Per patient/family, he is sup/sba for dressing, toileting, and receives assist with bathing from son. He uses a walker with platform arm rests for BUE's. Social History Home: Single Level Current Living Status: Children Entry Into Home: Stairs With Railing Steps Into Home: 4 ADL-Prior Level of Function SCALE: Activities may be completed with or without assistive devices. 1-Ry[place]-bskxuem completes the activity by him/herself with no assistance from a helper. 5-Set-up or Clean-up Assistance-helper sets up or cleans up; patient completes activity. Export assists only prior to or following the activity. 4-Supervision or Touching Assistance-helper provides verbal cues and/or touching/steadying and/or contact guard assistance as patient completes activity. Assistance may be provided throughout the activity or intermittently. 3-Partial/Moderate Assistance-helper does LESS THAN HALF the effort. Export lifts, holds or supports trunk or limbs, but provides less than half the effort. 2-Substantial/Maximal Assistance-helper does MORE THAN HALF the effort. Export lifts or holds trunk or limbs and provides more than half the effort. 1-Vngweppfb-vmkzxb does ALL the effort. Patient does none of the effort to complete the activity. Or, the assistance of 2 or more helpers is required for the patient to complete the activity. If activity was not attempted, code reason: 7-Patient Refused. 9-Not Applicable-not attempted and the patient did not perform the activity before the current illness, exacerbation or injury. 10-Not Attempted due to Environmental Limitations-(lack of equipment, weather restraints, etc.). 88-Not Attempted due to Medical Conditions or Safety Concerns. Self Care: Needed Some Help Functional Cognition: Needed Some Help DME/Equipment: Bath Bench, Grab Bars, Tall Toilet, Tub/Shower Drive Self: No OT Current Status Subjective Pt reports pain in RLE, does not give numerical value. RN aware. Appearance Pt remained supine in bed, all needs within reach, dtr in room at OT departure. 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 Upper Extremity Coordination Impaired. Pt with residual deficits from old stroke and has history of Parkinsons. Upper Extremity Strength L Residual weakness from previous stroke (~13 years prior). RUE: 3+/4 grossly ADL-Treatment Lower Body Dressing (QC): 1 On/Off Footwear (QC): 1 Toileting Hygiene (QC): 1 Pt receiving blood transfusion at OT arrival. RN requests bed eval only. At supine, max a x1 to roll R/L. Per physical therapy note, pt is dependent transfer x2 with poor sitting balance at EOB. At this time, pt would require assist with all ADLs secondary to needing second person to maintain sitting balance and perform functional transfers. Education OT Patient Education: Correct positioning, Modified ADL techniques, Progress toward Goal/Update tx plan, Purpose of tx/functional activities, Reviewed precautions, Rehab process, Safety issues, Transfer techniques Teaching Recipient: Patient Teaching Methods: Demonstration, Discussion Response to Teaching: Verbalize Understanding, Return Demonstration, Reinforcement Needed OT Assisted Goals Assisted Goals Time Frame: Jun 27, 2021 Oral Hygiene (QC): 3 Toileting Hygiene (QC): 3 Shower/Bathe Self (QC): 3 Upper Body Dressing (QC): 3 Lower Body Dressing (QC): 3 1=Demonstrate adherence to instructed precautions during ADL tasks. 2=Patient will verbalize/demonstrate understanding of assistive devices/modifications for ADL. 3=Patient will improve strength/tolerance for activity to enable patient to perform ADL's. OT Education/Plan Problem List/Assessment Assessment: Decreased Activ Tolerance, Decreased Safety Aware, Decreased UE Strength, Dependent Transfers, Impaired Bed Mobility, Impaired Cognition, Impaired Coordination, Impaired Funct Balance, Impaired Self-Care Skills Discharge Recommendations Plan/Recommendations: Continue POC Therapy Discharge Recommendati: Post Acute OT Comment continue to assess Treatment Plan/Plan of Care Treatment,Training & Education: Yes Patient would benefit from OT for education, treatment and training to promote independence in ADL's, mobility, safety and/or upper extremity function for ADL's. Plan of Care: ADL Retraining, Caregiver Training, Functional Mobility, UE Funct Exercise/Act, UE Neuromus Re-Ed/Coord Treatment Duration: Jun 27, 2021 Frequency: 5 times per week Estimated Hrs Per Day: .25 hour per day Agreement: Yes Time/GCodes Start Time: 13:12 Stop Time: 13:28 Total Time Billed (hr/min): 16 Billed Treatment Time 1 visit, Maryann Pate OT Jun 06, 2021 13:39
[2021-06-06] MEDS ORDERED: KCL 20 MEQ TAB (K-DUR) PO ONE (14:00)
[2021-06-06] MEDS: TAMSULOSIN 0.4 MG (FLOMAX) CAP PO SCH (18:32)
[2021-06-06] MEDS: SERTRALINE 50 MG (ZOLOFT) TABLET PO SCH (20:46)
[2021-06-07 04:00] VITALS: BP 108/60
[2021-06-07 05:34] LABS: MEAN PLATELET VOLUME 10.2 fL (9.0-12.2)
[2021-06-07 05:36] LABS: HEMOGLOBIN 8.5 g/dL (13.3-17.7); WHITE BLOOD COUNT 5.6 10^3/uL (4.3-11.0)
[2021-06-07 05:48] LABS: POTASSIUM 3.9 MMOL/L (3.6-5.0)
[2021-06-07 05:50] LABS: CALCIUM 8.6 MG/DL (8.5-10.1)
[2021-06-07 05:54] LABS: CREATININE SERUM 0.63 MG/DL (0.60-1.30)
[2021-06-07 05:56] LABS: MAGNESIUM 1.6 MG/DL (1.6-2.4)
[2021-06-07 08:00] VITALS: BP 125/56
--- NOTE | 2021-06-07 08:30 | Progress Note ---
Subjective Subjective Date Seen by Provider: Jun 07, 2021 Time Seen by Provider: 08:15 Patient is a follow up day 3 s/p right hip intramedullary nail placement due to a right hip fracture and history of HTN, previous atrial fibrillation with clip to atrial appendage, pacemaker, history of CVA with ongoing weakness, parkinson's, hyperlipidemia. Family reports patient is eating/drinking well and PT/OT plans on getting him up on the chair today. Denies any pain, fever, chills, nausea, vomiting, or diarrhea. Hgb up to 8.5 today following 1u pRBC transfusion. Review of Systems General: No Chills HEENT: No Head Aches, No Visual Changes Pulmonary: No Dyspnea, No Cough Cardiovascular: No: Chest Pain, Palpitations, Edema Gastrointestinal: No: Nausea, Vomiting, Diarrhea Musculoskeletal: No: shoulder pain, back pain, leg pain Neurological: Weakness; No: Numbness All Other Systems Reviewed All Other Systems Reviewed: Yes Objective Exam Vital Signs Vital Signs Date Time Temp Pulse Resp B/P (MAP) Pulse Ox O2 Delivery O2 Flow Rate FiO2 06/07/21 08:00 35.9 83 18 125/56 (79) 95 Nasal Cannula 2.00 06/07/21 07:00 89 06/07/21 04:00 36.4 85 18 108/60 (76) 97 Nasal Cannula 2.00 06/07/21 01:00 84 06/06/21 23:30 36.9 88 18 110/73 (85) 95 Nasal Cannula 2.00 06/06/21 20:50 Nasal Cannula 2.00 06/06/21 20:13 37.0 97 22 120/58 (78) 95 Nasal Cannula 2.00 06/06/21 19:00 79 06/06/21 16:06 36.6 85 20 102/55 (71) 98 Nasal Cannula 2.00 06/06/21 14:01 36.5 89 20 109/73 95 Nasal Cannula 2.00 06/06/21 13:55 82 06/06/21 11:26 95 Nasal Cannula 2.00 06/06/21 11:23 36.3 88 20 106/68 (81) 95 Nasal Cannula 2.00 06/06/21 10:37 37.2 89 20 100/58 93 Nasal Cannula 2.00 06/06/21 10:14 37.0 92 20 100/51 95 Nasal Cannula 2.00 06/06/21 08:40 37.1 90 22 98/59 (72) 97 Nasal Cannula 2.00 I & O 06/07/21 07:00 Intake Total 1305 ml Output Total 2125 ml Balance -820 ml General Appearance: No Apparent Distress HEENT: PERRL/EOMI Neck: Normal Inspection, Non Tender Respiratory: Chest Non Tender, Lungs Clear Cardiovascular: Regular Rate, Rhythm, Systolic Murmur Gastrointestinal: Non Tender, Soft Extremity: Non Tender, No Calf Tenderness, No Pedal Edema, Other (L 4th digit amputated) Neurologic/Psychiatric: Alert Skin: Warm/Dry Results Lab Laboratory Tests 06/07/21 05:25: White Blood Count 5.6, Red Blood Count 2.43L, Hemoglobin 8.5L, Hematocrit 25L, Mean Corpuscular Volume 101H, Mean Corpuscular Hemoglobin 35H, Mean Corpuscular Hemoglobin Concent 35, Red Cell Distribution Width 15.2H, Platelet Count 111L, Mean Platelet Volume 10.2, Percent Immature Platelet Fraction 3.6, Sodium Level 137, Potassium Level 3.9, Chloride Level 101, Carbon Dioxide Level 27, Anion Gap 9, Blood Urea Nitrogen 10, Creatinine 0.63, Estimat Glomerular Filtration Rate 122, BUN/Creatinine Ratio 16, Glucose Level 102, Calcium Level 8.6, Magnesium Level 1.6 Microbiology 06/04/21 MRSA Screen - Final, Complete MRSA not isolated Assessment/Plan Assessment/Plan Assessment and Plan 1. S/P Right hip intramedullary nail placement--continue PT/OT, lovenox DVT ppx, H&H 8.5 today and continue to monitor 2. Conversational Dyspnea-- on oxygen, use incentive spirometer 10x/hr, chest xray showed decreased lung volume but no acute pulmonary changes 3. Hypertension/Pacemaker--resume home meds 4. Parkinson's--on Sinemet 5. History of CVA with Residual Weakness/Deficits--stable 6. Right Hip/Femur Fracture--surgery was performed 3 days ago GI ppx w/ Protonix Supervisory-Addendum Brief Verification & Attestation Participated in pt care: history, physical Personally performed: exam, history Care discussed with: Medical Student Procedures: n/a Results interpretation: Verified all documentation Patient seen and evaluated. Did not get up with PT or nursing yesterday. Was not able to stand at all. Has been having some owning. Pain is well cont rolled. Add Post-op Anemia to Assessment--S/P transfusion. Will given iron today. Agree with rest of assessment and plan. RONNIE HARTLEY Jun 07, 2021 08:30 NAPOLEON AKHTAR DO Jun 07, 2021 13:09
[2021-06-07] MEDS: SENNA W/DOCUSATE (SENOKOT S) TABLET PO SCH ×2 (08:48→20:20)
[2021-06-07] MEDS: DIVALPROEX 250 MG DELAYED RELEASE (DEPAKOTE) TAB PO SCH ×2 (08:48→20:13)
[2021-06-07] MEDS: ASPIRIN E.C. 81 MG (ECOTRIN) TAB PO SCH (08:48)
[2021-06-07] MEDS: VITAMIN D3 125 MCG (5,000 UNITS) CAPSULE PO SCH (08:48)
[2021-06-07] MEDS: SINEMET CR 50/200 (CARBIDOPA/LEVODOPA SA) TAB PO SCH ×2 (08:48→20:12)
[2021-06-07] MEDS: BETHANECHOL 25 MG (URECHOLINE) TAB PO SCH ×2 (08:48→20:13)
[2021-06-07] MEDS: PANTOPRAZOLE 40 MG (PROTONIX) TAB PO SCH (08:48)
[2021-06-07] MEDS: ENOXAPARIN 40 MG/0.4 ML (LOVENOX) SYR SC SCH (08:49)
--- NOTE | 2021-06-07 09:58 | Cardiology Progress Note ---
Subjective Date Seen by Provider: Jun 07, 2021 Time Seen by Provider: 09:56 Subjective/Events-last exam C/o increase fatigue this morning. Denies any chest pain, c/o mild right hip pain. Review of Systems General: No Chills, No Night Sweats; Fatigue; No Malaise, No Appetite, No Other HEENT: No Head Aches, No Visual Changes, No Eye Pain, No Ear Pain, No Dysphasia, No Sinus Congestion, No Post Nasal Drip, No Sore Throat, No Other Pulmonary: No Dyspnea, No Cough, No Pleuritic Chest Pain, No Other Cardiovascular: No: Chest Pain, Palpitations, Orthopnea, Paroxysmal Noc. Dyspnea, Edema, Lt Headedness, Other Objective-Cardiology Exam Last Set of Vital Signs Vital Signs 06/07/21 06/07/21 11:52 12:30 Temp 36.0 Pulse 90 Resp 22 B/P (MAP) 102/57 (72) Pulse Ox 94 O2 Delivery Nasal Cannula O2 Flow Rate 2.00 I&O Intake and Output 06/07/21 00:00 Intake Total 1380 ml Output Total 1925 ml Balance -545 ml Intake Oral 1205 ml IV Total 100 ml Other 75 ml Output Urine Total 1925 ml General: Alert, Oriented X3, Cooperative HEENT: Atraumatic, PERRLA Lungs: Clear to Auscultation, Normal Air Movement Heart: Normal S1, Normal S2, Other (irregularly irregular) Abdomen: Normal Bowel Sounds, Soft Extremities: No Clubbing, Other (trace edema RLE) Neuro: Cranial Nerves 3-12 NL Psych/Mental Status: Mental Status NL, Mood NL Results Lab Laboratory Tests 06/07/21 05:25 A/P-Cardiology Admission Diagnosis Right hip fracture Chronic atrial fibrillation Permanent pacemaker Hypertension Assessment/Plan Right hip fracture, s/p repain with Dr. Hawkins on June 05, 2021, starting physical therapy. Anemia, s/p transfusion yesterday, continue to monitor. Shortness of breath,responded well to Lasix, conitnue to monitor tolerance and response. Chronic persistent atrial fibrillation, rate is controlled. Has underlying sinus node dysfunction and permanent pacemaker. Telemetry revealed atrial paced rhythm. [id number] score 4, yearly risk of stroke without oral anticoagulation is 4%. Patient has history of embolic stroke and hemorrhagic stroke, unable to tolerate oral anticoagulation and had ELHAM clip done at . Sinus node dysfunction, permanent pacemaker, had generator replacement done in April 2020. Continue to monitor Hypertension, controlled. Continue to monitor. Hyperlipidemia, continue to monitor lipids History of seizure disorder. Continue to monitor Mild bilateral carotid stenosis, continue to monitor Supervisory-Addendum Brief Supervisory Addendum Participated in pt care: history, MDM, physical Personally performed: exam, history, MDM Care discussed with: ALBINO Results interpretation: Verified all documentation Notes: Patient was seen and evaluated with Gissell, examination performed, management plan was discussed, agree with the current scribed note, I made few changes to the note using Italic font Patient was seen at bedside, sitting comfortably, eating lunch Denied any chest pain, still having hip pain H&H are better, starting physical therapy Continue to monitor blood pressure and lipids. No changes are recommended GISSELL MESSINA Jun 07, 2021 09:58 KEDAR BOYKIN MD Jun 07, 2021 13:55
[2021-06-07] MEDS ORDERED: ACETAMINOPHEN 325 MG TABLET ONE (10:06)
[2021-06-07] MEDS: ACETAMINOPHEN 325 MG TABLET PO PRN ×2 (10:11→11:38)
[2021-06-07] MEDS: LACTATED RINGERS 1,000 ML IV SCH (10:12)
--- NOTE | 2021-06-07 10:20 | Progress Note ---
Standard Progress Note Progress Notes/Assess & Plan Date Seen by a Provider: Jun 07, 2021 Time Seen by a Provider: 10:19 Progress/Assessment & Plan no complaints Vital Signs Date Time Temp Pulse Resp B/P (MAP) Pulse Ox O2 Delivery O2 Flow Rate FiO2 06/05/21 04:00 36.8 78 18 101/61 (74) 91 Room Air 06/05/21 01:00 82 06/04/21 23:30 36.5 87 18 131/74 (93) 91 Room Air 06/04/21 20:05 36.0 93 16 106/71 (83) 92 Room Air 06/04/21 20:00 Room Air 06/04/21 19:00 89 06/04/21 18:48 Room Air 06/04/21 17:23 37.1 91 16 107/75 (86) 98 Nasal Cannula 2.00 06/04/21 16:45 Nasal Cannula 2 06/04/21 16:45 36.2 20 111/70 (84) 98 Nasal Cannula 2 06/04/21 16:30 20 109/75 (86) 98 Nasal Cannula 2 06/04/21 16:30 Nasal Cannula 2 06/04/21 16:20 20 118/79 (92) 98 Nasal Cannula 2 06/04/21 16:15 Nasal Cannula 3 06/04/21 16:10 20 118/76 (90) 99 Nasal Cannula 3 06/04/21 16:00 36.2 89 20 118/76 (90) 99 Nasal Cannula 3.00 3.00 06/04/21 16:00 20 118/76 (90) 99 OxyMask 3 06/04/21 16:00 Nasal Cannula 3 06/04/21 15:50 18 107/64 (78) 100 OxyMask 3 06/04/21 15:44 36.2 18 102/64 (77) 100 OxyMask 5 06/04/21 15:44 OxyMask 5 06/04/21 13:36 Room Air 06/04/21 12:39 89 06/04/21 12:00 36.3 96 18 140/90 (107) 93 Room Air 06/04/21 10:30 96 18 140/90 93 Room Air 06/04/21 09:15 36.3 93 18 150/89 (109) 94 Room Air 06/04/21 09:15 36.3 93 18 150/89 (109) 94 Room Air I & O 06/05/21 07:00 Intake Total 3250 ml Output Total 575 ml Balance 2675 ml Laboratory Tests Test 06/04/21 11:50 06/04/21 12:10 06/05/21 05:35 Range/Units Valproic Acid (Depakene) Level < 2.0 L 50.0-100.0 UG/ML SARS-CoV-2 RNA (RT-PCR) Not Detected Not Detecte White Blood Count 9.7 4.3-11.0 10^3/uL Red Blood Count 2.78 L 4.30-5.52 10^6/uL Hemoglobin 9.9 L 13.3-17.7 g/dL Hematocrit 29 L 40-54 % Mean Corpuscular Volume 104 H 80-99 fL Mean Corpuscular Hemoglobin 36 H 25-34 pg Mean Corpuscular Hemoglobin Concent 34 32-36 g/dL Red Cell Distribution Width 13.7 10.0-14.5 % Platelet Count 147 130-400 10^3/uL Mean Platelet Volume 10.7 9.0-12.2 fL Sodium Level 138 135-145 MMOL/L Potassium Level 4.1 3.6-5.0 MMOL/L Chloride Level 106 98-107 MMOL/L Carbon Dioxide Level 23 21-32 MMOL/L Anion Gap 9 5-14 MMOL/L Blood Urea Nitrogen 12 7-18 MG/DL Creatinine 0.77 0.60-1.30 MG/DL Estimat Glomerular Filtration Rate 96 BUN/Creatinine Ratio 16 Glucose Level 132 H 70-105 MG/DL Calcium Level 8.6 8.5-10.1 MG/DL R hip dressing intact Intact DF and PF of toes and ankle. Intact sensatin to light touch throughout pulses equal s/p R hip Im vikash PT/OT WBAT with walker IRU eval Final Diagnosis feeling better today Vital Signs Date Time Temp Pulse Resp B/P (MAP) Pulse Ox O2 Delivery O2 Flow Rate FiO2 06/07/21 08:00 35.9 83 18 125/56 (79) 95 Nasal Cannula 2.00 06/07/21 08:00 95 Nasal Cannula 1.00 06/07/21 07:00 89 06/07/21 04:00 36.4 85 18 108/60 (76) 97 Nasal Cannula 2.00 06/07/21 01:00 84 10/26/21 23:30 36.9 88 18 110/73 (85) 95 Nasal Cannula 2.00 06/06/21 20:50 Nasal Cannula 2.00 06/06/21 20:13 37.0 97 22 120/58 (78) 95 Nasal Cannula 2.00 06/06/21 19:00 79 06/06/21 16:06 36.6 85 20 102/55 (71) 98 Nasal Cannula 2.00 06/06/21 14:01 36.5 89 20 109/73 95 Nasal Cannula 2.00 06/06/21 13:55 82 06/06/21 11:26 95 Nasal Cannula 2.00 06/06/21 11:23 36.3 88 20 106/68 (81) 95 Nasal Cannula 2.00 06/06/21 10:37 37.2 89 20 100/58 93 Nasal Cannula 2.00 I & O 06/07/21 07:00 Intake Total 1305 ml Output Total 2125 ml Balance -820 ml Laboratory Tests Test 06/07/21 05:25 Range/Units White Blood Count 5.6 4.3-11.0 10^3/uL Red Blood Count 2.43 L 4.30-5.52 10^6/uL Hemoglobin 8.5 L 13.3-17.7 g/dL Hematocrit 25 L 40-54 % Mean Corpuscular Volume 101 H 80-99 fL Mean Corpuscular Hemoglobin 35 H 25-34 pg Mean Corpuscular Hemoglobin Concent 35 32-36 g/dL Red Cell Distribution Width 15.2 H 10.0-14.5 % Platelet Count 111 L 130-400 10^3/uL Mean Platelet Volume 10.2 9.0-12.2 fL Percent Immature Platelet Fraction 3.6 0.0-7.6 % Sodium Level 137 135-145 MMOL/L Potassium Level 3.9 3.6-5.0 MMOL/L Chloride Level 101 98-107 MMOL/L Carbon Dioxide Level 27 21-32 MMOL/L Anion Gap 9 5-14 MMOL/L Blood Urea Nitrogen 10 7-18 MG/DL Creatinine 0.63 0.60-1.30 MG/DL Estimat Glomerular Filtration Rate 122 BUN/Creatinine Ratio 16 Glucose Level 102 70-105 MG/DL Calcium Level 8.6 8.5-10.1 MG/DL Magnesium Level 1.6 1.6-2.4 MG/DL R hip dressing intact no calf tenderness. Neg Chepe's s/p R hip IM vikash mobilize as able OBED JASSO MD Jun 07, 2021 10:20
[2021-06-07 11:52] VITALS: BP 102/57
[2021-06-07] MEDS ORDERED: ACETAMINOPHEN 325 MG TABLET PO PRN (13:00)
--- NOTE | 2021-06-07 13:00 | Physical Therapy Daily Note ---
PT Daily Note-Current Subjective Patient in bed pre tx, agrees to PT, has unrated pain in right leg. Appearance Patient in recliner post tx with nurse call, phone, tray, all needs met, family in room. Mental Status Patient Orientation: Person, Place Attachments: Oxygen, IV Transfers SCALE: Activities may be completed with or without assistive devices. 9-Azdxkjqjkg-eeeqjud completes the activity by him/herself with no assistance from a helper. 5-Set-up or Clean-up Assistance-helper sets up or cleans up; patient completes activity. [place] assists only prior to or following the activity. 4-Supervision or Touching Assistance-helper provides verbal cues and/or touching/steadying and/or contact guard assistance as patient completes activity. Assistance may be provided throughout the activity or intermittently. 3-Partial/Moderate Assistance-helper does LESS THAN HALF the effort. [place] lifts, holds or supports trunk or limbs, but provides less than half the effort. 2-Substantial/Maximal Assistance-helper does MORE THAN HALF the effort. [place] lifts or holds trunk or limbs and provides more than half the effort. 7-Thxxbdnia-jphuaw does ALL the effort. Patient does none of the effort to complete the activity. Or, the assistance of 2 or more helpers is required for the patient to complete the activity. If activity was not attempted, code reason: 7-Patient Refused. 9-Not Applicable-not attempted and the patient did not perform the activity before the current illness, exacerbation or injury. 10-Not Attempted due to Environmental Limitations-(lack of equipment, weather restraints, etc.). 88-Not Attempted due to Medical Conditions or Safety Concerns. Roll Left & Right (QC): 3 Lying to Sitting/Side of Bed(Q: 2 Sit to Stand (QC): 2 Chair/Epl-bb-Eszms Xfer(QC): 2 Max assist stand pivot to recliner, patient is not able to stand from bed using walker and therapist assist. Weight Bearing Right Lower Extremity: Right Weight Bearing/Tolerated Exercises Seated Therapy Exercises: Ankle pumps, Long arc quads Seated Reps: 20 Treatments bed mobility and transfers, LE exercise Assessment Current Status: Poor Progress Patient has poor mobility, can assist very little for transfers and supine <-> sit PT Short Term Goals Short Term Goals Time Frame: Jun 19, 2021 Roll Left & Right: 3 Sit to lyin Lying to sitting on side of be: 3 Sit to stand: 3 Chair/qol-uz-ttjej transfer: 3 Toilet transfer: 3 Walk 10 feet: 2 Walk 50 feet with two turns: 2 PT Usp Goals Social Sciences Instructor Goals PT Social Sciences Instructor Goals Time Frame: Jul 10, 2021 Roll Left & Right (QC): 5 Sit to Lying (QC): 5 Lying-Sitting on Side/Bed(QC): 5 Sit to Stand (QC): 5 Chair/Osu-ax-Wfhxe Xfer(QC): 5 Toilet Transfer (QC): 5 Car Transfer (QC): 4 Does the Patient Walk: Yes Walk 10 feet (QC): 4 Walk 50ft with 2 Turns (QC): 4 Walk 150 ft (QC): 3 Does the Pt use WC or Scooter?: No PT Plan Problem List Problem List: Activity Tolerance, Functional Strength, Safety, Balance, Gait, Transfer, Bed Mobility, ROM Treatment/Plan Treatment Plan: Continue Plan of Care Treatment Plan: Bed Mobility, Education, Functional Activity Vandana, Functional Strength, Group Therapy, Gait, Safety, Therapeutic Exercise, Transfers Treatment Duration: Aug 09, 2021 Frequency: 6 times per week Estimated Hrs Per Day: .25 hour per day Safety Risks/Education Patient Education: Transfer Techniques, Correct Positioning, Safety Issues Teaching Recipient: Patient Teaching Methods: Demonstration, Discussion Response to Teaching: Reinforcement Needed Time/GCodes Time In: 1055 Time Out: 1105 Total Billed Treatment Time: 10 Total Billed Treatment 1 visit FA KYMBERLY BEAN PT Jun 07, 2021 13:00
--- NOTE | 2021-06-07 15:20 | Occupational Ther Daily Note ---
OT Current Status-Daily Note Subjective Pt was sitting in chair asleep w/ legs elevated upon OT arrival. Pt daughter was in room during tx session. Pt woke up and agreed to tx session. Mental Status/Objective Patient Orientation: Person, Place Attachments: Mclaughlin Catheter, IV, Oxygen ADL-Treatment Therapy Code Descriptions/Definitions Functional [place] Measure: 0=Not Assessed/NA 4=Minimal Assistance 1=Total Assistance 5=Supervision or Setup 2=Maximal Assistance 6=Modified [place] 3=Moderate Assistance 7=Complete IndependenceSCALE: Activities may be completed with or without assistive devices. 1-Cueiaculyc-gqieihz completes the activity by him/herself with no assistance from a helper. 5-Set-up or Clean-up Assistance-helper sets up or cleans up; patient completes activity. [place] assists only prior to or following the activity. 4-Supervision or Touching Assistance-helper provides verbal cues and/or touching/steadying and/or contact guard assistance as patient completes activity. Assistance may be provided throughout the activity or intermittently. 3-Partial/Moderate Assistance-helper does LESS THAN HALF the effort. [place] lifts, holds or supports trunk or limbs, but provides less than half the effort. 2-Substantial/Maximal Assistance-helper does MORE THAN HALF the effort. [place] lifts or holds trunk or limbs and provides more than half the effort. 9-Xqpsueukr-jmudjg does ALL the effort. Patient does none of the effort to complete the activity. Or, the assistance of 2 or more helpers is required for the patient to complete the activity. If activity was not attempted, code reason: 7-Patient Refused. 9-Not Applicable-not attempted and the patient did not perform the activity before the current illness, exacerbation or injury. 10-Not Attempted due to Environmental Limitations-(lack of equipment, weather restraints, etc.). 88-Not Attempted due to Medical Conditions or Safety Concerns. Other Treatment Pt was sitting in chair asleep w/ legs elevated upon OT arrival. Pt daughter was in room during tx session. Pt woke up and agreed to tx session. Pt repositioned himself in chair at IND. In order to increase BUE strength and activity tolerance, pt participated in BUE exercises, x10 reps, one round, rest breaks between each of the following: shoulder abduction, shoulder flexion, shoulder horizontal abduction, elbow flexion. Hand over hand assistance required with elbow flexion and shoulder abduction for correct technique. Post tx session, pt was seated in chair, w/ legs elevated, call light within reach, and all needs met. Education OT Patient Education: Energy conservation, Modified ADL techniques, Progress toward Goal/Update tx plan, Purpose of tx/functional activities Teaching Recipient: Patient, Family Teaching Methods: Demonstration Response to Teaching: Return Demonstration, Reinforcement Needed OT Refrigeration Tech Goals Fdc Goals Time Frame: Jun 27, 2021 Oral Hygiene (QC): 3 Toileting Hygiene (QC): 3 Shower/Bathe Self (QC): 3 Upper Body Dressing (QC): 3 Lower Body Dressing (QC): 3 1=Demonstrate adherence to instructed precautions during ADL tasks. 2=Patient will verbalize/demonstrate understanding of assistive devices/modifications for ADL. 3=Patient will improve strength/tolerance for activity to enable patient to perform ADL's. OT Education/Plan Problem List/Assessment Assessment: Decreased Activ Tolerance, Decreased Safety Aware, Decreased UE Strength, Impaired Cognition, Impaired Coordination, Impaired I ADL's, Impaired Self-Care Skills, Restricted Funct UE ROM Discharge Recommendations Plan/Recommendations: Continue POC Treatment Plan/Plan of Care Patient would benefit from OT for education, treatment and training to promote independence in ADL's, mobility, safety and/or upper extremity function for ADL's. Plan of Care: ADL Retraining, Caregiver Training, Functional Mobility, UE Funct Exercise/Act, UE Neuromus Re-Ed/Coord Treatment Duration: Jun 27, 2021 Frequency: 5 times per week Estimated Hrs Per Day: .25 hour per day Agreement: Yes Time/GCodes Start Time: 14:58 Stop Time: 15:14 Total Time Billed (hr/min): 16 Billed Treatment Time 1 Visit, EX SHAKA BEAN OT Jun 07, 2021 15:20
[2021-06-07 16:00] VITALS: BP 108/55
--- NOTE | 2021-06-07 16:24 | Physician Query Clarification ---
Physician Query-General Query to Physician: The medical record reflects the following clinical evidence: Clinical Indicators: Admission H/H 9.9/29 decreased to 7.9/23, "conversational dyspnea", requiring 2-3 L 02 to maintain sats Risk Factor(s): fall with Hip fracture, Surgical repair, Aspirin daily Treatment: 1 unit pRBC, lab monitoring, 1. Acute posthemorrhagic anemia/ABLA 2. Other explanation of clinical findings 3. Unable to determine (no explanation for clinical findings) Please clarify and document your clinical opinion in the progress notes and discharge summary including the definitive and/or presumptive diagnosis, (suspected or probable), related to the above clinical findings. Please include clinical findings supporting your diagnosis. Monisha Tyson MSN, RN Clinical Body Engineer ([phone] [email or web address] PHYSICIAN RESPONSE: Based on the clinical findings in the record, please respond to the query above on this document as an addendum. Physician Response: Physician Response Acute on Chronic Anemia from blood loss due to surgery If you have questions please contact: Dismantler: Ext: Thank you for your time and cooperation. Clinical Body Engineer/Dismantler This is a permanent part of the medical record MONISHA TYSON Jun 07, 2021 16:24 NAPOLEON AKHTAR DO Jun 07, 2021 19:52
[2021-06-07] MEDS: TAMSULOSIN 0.4 MG (FLOMAX) CAP PO SCH (17:42)
[2021-06-07 19:27] VITALS: BP 132/62
[2021-06-07] MEDS: SERTRALINE 50 MG (ZOLOFT) TABLET PO SCH (20:13)
[2021-06-08] VITALS (7 sets, daily range): BP systolic 104–147; BP diastolic 54–79
[2021-06-08] MEDS: LACTATED RINGERS 1,000 ML IV SCH (05:43)
[2021-06-08 05:53] LABS: HEMATOCRIT 24 % (40-54); MEAN CORPUSCULAR HEMOGLOBIN 35 pg (25-34); MEAN CORPUSCULAR HGB CONC 34 g/dL (32-36); MEAN CORPUSCULAR VOLUME 103 fL (80-99); MEAN PLATELET VOLUME 10.3 fL (9.0-12.2); PLATELET COUNT 126 10^3/uL (130-400); WHITE BLOOD COUNT 4.2 10^3/uL (4.3-11.0)
--- NOTE | 2021-06-08 07:44 | Progress Note ---
Standard Progress Note Progress Notes/Assess & Plan Date Seen by a Provider: Jun 08, 2021 Time Seen by a Provider: 07:43 Progress/Assessment & Plan no complaints Vital Signs Date Time Temp Pulse Resp B/P (MAP) Pulse Ox O2 Delivery O2 Flow Rate FiO2 06/05/21 04:00 36.8 78 18 101/61 (74) 91 Room Air 06/05/21 01:00 82 06/04/21 23:30 36.5 87 18 131/74 (93) 91 Room Air 06/04/21 20:05 36.0 93 16 106/71 (83) 92 Room Air 06/04/21 20:00 Room Air 06/04/21 19:00 89 06/04/21 18:48 Room Air 06/04/21 17:23 37.1 91 16 107/75 (86) 98 Nasal Cannula 2.00 06/04/21 16:45 Nasal Cannula 2 06/04/21 16:45 36.2 20 111/70 (84) 98 Nasal Cannula 2 06/04/21 16:30 20 109/75 (86) 98 Nasal Cannula 2 06/04/21 16:30 Nasal Cannula 2 06/04/21 16:20 20 118/79 (92) 98 Nasal Cannula 2 06/04/21 16:15 Nasal Cannula 3 06/04/21 16:10 20 118/76 (90) 99 Nasal Cannula 3 06/04/21 16:00 36.2 89 20 118/76 (90) 99 Nasal Cannula 3.00 3.00 06/04/21 16:00 20 118/76 (90) 99 OxyMask 3 06/04/21 16:00 Nasal Cannula 3 06/04/21 15:50 18 107/64 (78) 100 OxyMask 3 06/04/21 15:44 36.2 18 102/64 (77) 100 OxyMask 5 06/04/21 15:44 OxyMask 5 06/04/21 13:36 Room Air 06/04/21 12:39 89 06/04/21 12:00 36.3 96 18 140/90 (107) 93 Room Air 06/04/21 10:30 96 18 140/90 93 Room Air 06/04/21 09:15 36.3 93 18 150/89 (109) 94 Room Air 06/04/21 09:15 36.3 93 18 150/89 (109) 94 Room Air I & O 06/05/21 07:00 Intake Total 3250 ml Output Total 575 ml Balance 2675 ml Laboratory Tests Test 06/04/21 11:50 06/04/21 12:10 06/05/21 05:35 Range/Units Valproic Acid (Depakene) Level < 2.0 L 50.0-100.0 UG/ML SARS-CoV-2 RNA (RT-PCR) Not Detected Not Detecte White Blood Count 9.7 4.3-11.0 10^3/uL Red Blood Count 2.78 L 4.30-5.52 10^6/uL Hemoglobin 9.9 L 13.3-17.7 g/dL Hematocrit 29 L 40-54 % Mean Corpuscular Volume 104 H 80-99 fL Mean Corpuscular Hemoglobin 36 H 25-34 pg Mean Corpuscular Hemoglobin Concent 34 32-36 g/dL Red Cell Distribution Width 13.7 10.0-14.5 % Platelet Count 147 130-400 10^3/uL Mean Platelet Volume 10.7 9.0-12.2 fL Sodium Level 138 135-145 MMOL/L Potassium Level 4.1 3.6-5.0 MMOL/L Chloride Level 106 98-107 MMOL/L Carbon Dioxide Level 23 21-32 MMOL/L Anion Gap 9 5-14 MMOL/L Blood Urea Nitrogen 12 7-18 MG/DL Creatinine 0.77 0.60-1.30 MG/DL Estimat Glomerular Filtration Rate 96 BUN/Creatinine Ratio 16 Glucose Level 132 H 70-105 MG/DL Calcium Level 8.6 8.5-10.1 MG/DL R hip dressing intact Intact DF and PF of toes and ankle. Intact sensatin to light touch throughout pulses equal s/p R hip Im vikash PT/OT WBAT with walker IRU eval Final Diagnosis no complaints Vital Signs Date Time Temp Pulse Resp B/P (MAP) Pulse Ox O2 Delivery O2 Flow Rate FiO2 06/08/21 04:51 36.6 89 20 120/62 (81) 94 Nasal Cannula 1.00 06/08/21 01:00 89 06/08/21 00:18 37.3 86 20 118/57 (77) 91 Nasal Cannula 1.00 06/07/21 20:23 95 Nasal Cannula 0.50 06/07/21 20:15 Nasal Cannula 1.00 06/07/21 19:27 36.7 90 20 132/62 (85) 95 Nasal Cannula 0.50 06/07/21 19:00 85 06/07/21 16:00 36.7 87 20 108/55 (72) 95 Nasal Cannula 0.50 06/07/21 12:30 90 06/07/21 11:52 36.0 83 22 102/57 (72) 94 Nasal Cannula 2.00 06/07/21 08:00 35.9 83 18 125/56 (79) 95 Nasal Cannula 2.00 06/07/21 08:00 95 Nasal Cannula 1.00 I & O 06/08/21 07:00 Intake Total 4820 ml Output Total 1475 ml Balance 3345 ml Laboratory Tests Test 06/08/21 05:20 Range/Units White Blood Count 4.2 L 4.3-11.0 10^3/uL Red Blood Count 2.29 L 4.30-5.52 10^6/uL Hemoglobin 8.0 L 13.3-17.7 g/dL Hematocrit 24 L 40-54 % Mean Corpuscular Volume 103 H 80-99 fL Mean Corpuscular Hemoglobin 35 H 25-34 pg Mean Corpuscular Hemoglobin Concent 34 32-36 g/dL Red Cell Distribution Width 14.6 H 10.0-14.5 % Platelet Count 126 L 130-400 10^3/uL Mean Platelet Volume 10.3 9.0-12.2 fL R hip incision clean and dry. no calf tenderness s/p R hip IM vikash await placement OBED JASSO MD Jun 08, 2021 07:44
--- NOTE | 2021-06-08 08:38 | Cardiology Progress Note ---
Subjective Date Seen by Provider: Jun 08, 2021 Time Seen by Provider: 08:37 Subjective/Events-last exam Sitting up in chair, no new complaints. Plan to d/c to SNU today Review of Systems General: No Chills, No Night Sweats; Fatigue, Malaise; No Appetite, No Other HEENT: No Head Aches, No Visual Changes, No Eye Pain, No Ear Pain, No Dysphasia, No Sinus Congestion, No Post Nasal Drip, No Sore Throat, No Other Pulmonary: No Dyspnea, No Cough, No Pleuritic Chest Pain, No Other Cardiovascular: No: Chest Pain, Palpitations, Orthopnea, Paroxysmal Noc. Dyspnea, Edema, Lt Headedness, Other Objective-Cardiology Exam Last Set of Vital Signs Vital Signs 06/08/21 06/08/21 08:00 09:30 Temp 37.0 Pulse 90 Resp 18 B/P (MAP) 110/62 (78) Pulse Ox 92 O2 Delivery Nasal Cannula O2 Flow Rate 1.00 I&O Intake and Output 06/08/21 00:00 Intake Total 3870 ml Output Total 1375 ml Balance 2495 ml Intake Oral 870 ml IV Total 3000 ml Output Urine Total 1375 ml # Bowel Movements 1 General: Alert, Oriented X3, Cooperative HEENT: Atraumatic, PERRLA Lungs: Clear to Auscultation, Normal Air Movement Heart: Normal S1, Normal S2, Other (irregularly irregular) Abdomen: Normal Bowel Sounds, Soft Extremities: No Clubbing, Other (trace edema RLE) Neuro: Cranial Nerves 3-12 NL Psych/Mental Status: Mental Status NL, Mood NL Results Lab Laboratory Tests 06/08/21 05:20 A/P-Cardiology Admission Diagnosis Right hip fracture Chronic atrial fibrillation Permanent pacemaker Hypertension Assessment/Plan Right hip fracture, s/p repain with Dr. Hawkins on June 05, 2021, continue PT/OT Anemia, s/p transfusion on 06/06/21, continue to monitor. Shortness of breath,responded well to Lasix, conitnue to monitor tolerance and response. Chronic persistent atrial fibrillation, rate is controlled. Has underlying sinus node dysfunction and permanent pacemaker. Telemetry revealed atrial paced rhythm. [id number] score 4, yearly risk of stroke without oral anticoagulation is 4%. Patient has history of embolic stroke and hemorrhagic stroke, unable to tolerate oral anticoagulation and had ELHAM clip done at [facility]. Sinus node dysfunction, permanent pacemaker, had generator replacement done in April 2020. Continue to monitor Hypertension, controlled. Continue to monitor. Hyperlipidemia, continue to monitor lipids History of seizure disorder. Continue to monitor Mild bilateral carotid stenosis, continue to monitor OK for discharge from cardiology standpoint. F/u in 4-6 weeks in our office. Supervisory-Addendum Brief Supervisory Addendum Participated in pt care: history, MDM, physical Personally performed: exam, history, MDM Care discussed with: ALBINO Results interpretation: Verified all documentation Notes: Patient was seen and evaluated with Gissell, examination performed, management plan was discussed, agree with the current scribed note, I made few changes to the note using Italic font Patient was seen at bedside, sitting comfortably, eating breakfast Denied any chest pain or shortness of breath Being transferred to [place] care Continue to monitor blood pressure No medication changes were recommended Okay for discharge from cardiology standpoint GISSELL MESSINA Jun 08, 2021 08:38 KEDAR BOYKIN MD Jun 08, 2021 09:44
--- NOTE | 2021-06-08 09:09 | Progress Note ---
Subjective Subjective Date Seen by Provider: Jun 08, 2021 Time Seen by Provider: 07:45 Patient is a follow up day 4 s/p right hip intramedullary nail placement due to a right hip fracture and history of HTN, previous atrial fibrillation with clip to atrial appendage, pacemaker, history of CVA with ongoing weakness, parkinson's, hyperlipidemia. Pt was able to sit up on chair yesterday with PT. Today was sitting comfortably upright in chair and denies any complaints. Family reports pt was able to get up and move around to use the restroom. Denies any pain, fever, chills, nausea, vomiting, or diarrhea. Review of Systems General: No Chills, No Night Sweats; Fatigue; No Malaise, No Appetite, No Other HEENT: No Head Aches, No Visual Changes, No Eye Pain, No Ear Pain, No Dysphasia, No Sinus Congestion, No Post Nasal Drip, No Sore Throat, No Other Pulmonary: No Dyspnea, No Cough, No Pleuritic Chest Pain, No Other Cardiovascular: No: Chest Pain, Palpitations, Orthopnea, Paroxysmal Noc. Dyspnea, Edema, Lt Headedness, Other Gastrointestinal: No: Nausea, Vomiting, Diarrhea Musculoskeletal: No: shoulder pain, back pain, leg pain Neurological: Weakness; No: Numbness All Other Systems Reviewed All Other Systems Reviewed: Yes Objective Exam Vital Signs Vital Signs Date Time Temp Pulse Resp B/P (MAP) Pulse Ox O2 Delivery O2 Flow Rate FiO2 06/08/21 08:00 37.0 90 18 110/62 (78) 91 Nasal Cannula 1.00 06/08/21 07:00 88 06/08/21 04:51 36.6 89 20 120/62 (81) 94 Nasal Cannula 1.00 06/08/21 01:00 89 06/08/21 00:18 37.3 86 20 118/57 (77) 91 Nasal Cannula 1.00 06/07/21 20:23 95 Nasal Cannula 0.50 06/07/21 20:15 Nasal Cannula 1.00 06/07/21 19:27 36.7 90 20 132/62 (85) 95 Nasal Cannula 0.50 06/07/21 19:00 85 06/07/21 16:00 36.7 87 20 108/55 (72) 95 Nasal Cannula 0.50 06/07/21 12:30 90 06/07/21 11:52 36.0 83 22 102/57 (72) 94 Nasal Cannula 2.00 I & O 06/08/21 07:00 Intake Total 4820 ml Output Total 1475 ml Balance 3345 ml General Appearance: No Apparent Distress HEENT: PERRL/EOMI Neck: Normal Inspection, Non Tender Respiratory: Chest Non Tender, Crackles (Bibasilar) Cardiovascular: Regular Rate, Rhythm, Systolic Murmur Gastrointestinal: Non Tender, Soft Extremity: Non Tender, No Calf Tenderness, No Pedal Edema, Other (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 S/P Right hip intramedullary nail placement--continue PT/OT, lovenox DVT ppx, remove urinary catheter 2. Acute on chronic anemia due to post op blood loss--Hgb at 8 today, iron injection, repeat labs in am 2. Conversational Dyspnea-- on oxygen, use incentive spirometer 10x/hr, repeat CXR 3. Hypertension/Pacemaker--resume home meds 4. Parkinson's--on Sinemet 5. History of CVA with Residual Weakness/Deficits--stable 6. Right Hip/Femur Fracture--surgery was performed 3 days ago GI ppx w/ Protonix Supervisory-Addendum Brief Verification & Attestation Participated in pt care: history, physical Personally performed: exam, history, supervision of care Care discussed with: Medical Student Procedures: n/a Results interpretation: Verified all documentation Patient seen and assessed. Sitting up in chair is morning. Not performing IS correctly or very often. Stress importance of this as he does have bibasilar crackle on exam. Will get CXR in AM. [facility] a senior living bed for him. Will plan on DC to SNF tomorrow. Otherwise, agree with above assessment. RONNIE HARTLEY Jun 08, 2021 09:09 NAPOLEON AKHTAR DO Jun 08, 2021 13:08
[2021-06-08] MEDS: PANTOPRAZOLE 40 MG (PROTONIX) TAB PO SCH (09:48)
[2021-06-08] MEDS: ASPIRIN E.C. 81 MG (ECOTRIN) TAB PO SCH (09:48)
[2021-06-08] MEDS: BETHANECHOL 25 MG (URECHOLINE) TAB PO SCH ×2 (09:49→20:17)
[2021-06-08] MEDS: SENNA W/DOCUSATE (SENOKOT S) TABLET PO SCH ×2 (09:49→20:16)
[2021-06-08] MEDS: DIVALPROEX 250 MG DELAYED RELEASE (DEPAKOTE) TAB PO SCH ×2 (09:49→20:16)
[2021-06-08] MEDS: VITAMIN D3 125 MCG (5,000 UNITS) CAPSULE PO SCH (09:49)
[2021-06-08] MEDS: SINEMET CR 50/200 (CARBIDOPA/LEVODOPA SA) TAB PO SCH ×2 (09:49→20:16)
[2021-06-08] MEDS: ENOXAPARIN 40 MG/0.4 ML (LOVENOX) SYR SC SCH (09:49)
[2021-06-08] MEDS: IRON SUCROSE 200 MG/10 ML (VENOFER) VIAL IV NR (09:50)
--- NOTE | 2021-06-08 10:12 | Physical Therapy Daily Note ---
PT Daily Note-Current Subjective Patient on commode with nursing present. Mental Status Attachments: Oxygen, Mclaughlin Catheter, IV Transfers SCALE: Activities may be completed with or without assistive devices. 8-Eavivxrnfm-suyimbi completes the activity by him/herself with no assistance from a helper. 5-Set-up or Clean-up Assistance-helper sets up or cleans up; patient completes activity. [place] assists only prior to or following the activity. 4-Supervision or Touching Assistance-helper provides verbal cues and/or touching/steadying and/or contact guard assistance as patient completes activity. Assistance may be provided throughout the activity or intermittently. 3-Partial/Moderate Assistance-helper does LESS THAN HALF the effort. [place] lifts, holds or supports trunk or limbs, but provides less than half the effort. 2-Substantial/Maximal Assistance-helper does MORE THAN HALF the effort. [place] lifts or holds trunk or limbs and provides more than half the effort. 8-Crqrbyigz-ymctmr does ALL the effort. Patient does none of the effort to complete the activity. Or, the assistance of 2 or more helpers is required for the patient to complete the activity. If activity was not attempted, code reason: 7-Patient Refused. 9-Not Applicable-not attempted and the patient did not perform the activity before the current illness, exacerbation or injury. 10-Not Attempted due to Environmental Limitations-(lack of equipment, weather restraints, etc.). 88-Not Attempted due to Medical Conditions or Safety Concerns. Sit to Stand (QC): 1 Chair/Uat-bi-Wqbor Xfer(QC): 1 patient minimally assists with sit to stand and SPT commode to recliner. Weight Bearing Right Lower Extremity: Right Weight Bearing/Tolerated Assessment Sit to stand x 3 sets with nursing to cleanse after BM. Patient unable to stand erect or utilize left platform FWW to assist with transfers. Plan transfer to [place] this week. PT Short Term Goals Short Term Goals Time Frame: Jun 19, 2021 Roll Left & Right: 3 Sit to lyin Lying to sitting on side of be: 3 Sit to stand: 3 Chair/shf-te-bygdw transfer: 3 Toilet transfer: 3 Walk 10 feet: 2 Walk 50 feet with two turns: 2 PT Prison Goals Prison Goals PT Prison Goals Time Frame: Jul 10, 2021 Roll Left & Right (QC): 5 Sit to Lying (QC): 5 Lying-Sitting on Side/Bed(QC): 5 Sit to Stand (QC): 5 Chair/Qfc-ow-Qvqfq Xfer(QC): 5 Toilet Transfer (QC): 5 Car Transfer (QC): 4 Does the Patient Walk: Yes Walk 10 feet (QC): 4 Walk 50ft with 2 Turns (QC): 4 Walk 150 ft (QC): 3 Does the Pt use WC or Scooter?: No PT Plan Treatment/Plan Treatment Plan: Continue Plan of Care Treatment Plan: Bed Mobility, Education, Functional Activity Vandana, Functional Strength, Group Therapy, Gait, Safety, Therapeutic Exercise, Transfers Treatment Duration: Aug 09, 2021 Frequency: 6 times per week Estimated Hrs Per Day: .25 hour per day Time/GCodes Time In: 825 Time Out: 837 Total Billed Treatment Time: 12 Total Billed Treatment 1 visit FA 12 min RAMBO PAYTON PT Jun 08, 2021 10:12
--- NOTE | 2021-06-08 11:38 | Occupational Ther Daily Note ---
OT Current Status-Daily Note Subjective Pt reports pain as 7/10 in R hip. Agreeable to treatment. Pain meds given at start of session Appearance Pt sitting in chair at OT departure. All needs within reach, daughter in room. Mental Status/Objective Patient Orientation: Person Attachments: Mclaughlin Catheter, IV, Oxygen, Telemetry ADL-Treatment Therapy Code Descriptions/Definitions Functional [place] Measure: 0=Not Assessed/NA 4=Minimal Assistance 1=Total Assistance 5=Supervision or Setup 2=Maximal Assistance 6=Modified [place] 3=Moderate Assistance 7=Complete IndependenceSCALE: Activities may be completed with or without assistive devices. 0-Cgjcisnbaj-fwklqzf completes the activity by him/herself with no assistance from a helper. 5-Set-up or Clean-up Assistance-helper sets up or cleans up; patient completes activity. [place] assists only prior to or following the activity. 4-Supervision or Touching Assistance-helper provides verbal cues and/or touching/steadying and/or contact guard assistance as patient completes activity. Assistance may be provided throughout the activity or intermittently. 3-Partial/Moderate Assistance-helper does LESS THAN HALF the effort. [place] lifts, holds or supports trunk or limbs, but provides less than half the effort. 2-Substantial/Maximal Assistance-helper does MORE THAN HALF the effort. [place] lifts or holds trunk or limbs and provides more than half the effort. 5-Ztnfbgtmm-bfzdoc does ALL the effort. Patient does none of the effort to complete the activity. Or, the assistance of 2 or more helpers is required for the patient to complete the activity. If activity was not attempted, code reason: 7-Patient Refused. 9-Not Applicable-not attempted and the patient did not perform the activity before the current illness, exacerbation or injury. 10-Not Attempted due to Environmental Limitations-(lack of equipment, weather restraints, etc.). 88-Not Attempted due to Medical Conditions or Safety Concerns. Pt sitting in chair at OT arrival. Agreeable to perform seated core/UE exercises. Mod A to scoot hips forward/backward in chair. Verbal/tactile cues for lumbar/thoracic extension; only able to sustain for brief moments before having to be cued back into co-activated erect trunk. With fatigue, pt often has to use BUE's to pull self forward. UE exercises performed, 10x1 in all planes. Tactile cues/assist to complete each movement through full range and for proper control/speed. Rest breaks needed between each exercise. Education OT Patient Education: Correct positioning, Exercise program, Progress toward Goal/Update tx plan, Purpose of tx/functional activities, Rehab process, Safety issues, Transfer techniques Teaching Recipient: Patient, Family Teaching Methods: Demonstration, Discussion Response to Teaching: Verbalize Understanding, Return Demonstration, Reinforcement Needed OT Jail Goals Melt Room Operator Goals Time Frame: Jun 27, 2021 Oral Hygiene (QC): 3 Toileting Hygiene (QC): 3 Shower/Bathe Self (QC): 3 Upper Body Dressing (QC): 3 Lower Body Dressing (QC): 3 1=Demonstrate adherence to instructed precautions during ADL tasks. 2=Patient will verbalize/demonstrate understanding of assistive devices/modifications for ADL. 3=Patient will improve strength/tolerance for activity to enable patient to perform ADL's. OT Education/Plan Problem List/Assessment Assessment: Decreased Activ Tolerance, Decreased Safety Aware, Decreased UE S trength, Dependent Transfers, Impaired Bed Mobility, Impaired Cognition, Impaired Coordination, Impaired Funct Balance, Impaired Self-Care Skills, Restricted Funct UE ROM Discharge Recommendations Plan/Recommendations: Continue POC Therapy Discharge Recommendati: Post Acute OT Treatment Plan/Plan of Care Treatment,Training & Education: Yes Patient would benefit from OT for education, treatment and training to promote i ndependence in ADL's, mobility, safety and/or upper extremity function for ADL's. Plan of Care: ADL Retraining, Caregiver Training, Functional Mobility, UE Funct Exercise/Act, UE Neuromus Re-Ed/Coord Treatment Duration: Jun 27, 2021 Frequency: 5 times per week Estimated Hrs Per Day: .25 hour per day Agreement: Yes Time/GCodes Start Time: 09:50 Stop Time: 10:13 Total Time Billed (hr/min): 23 Billed Treatment Time 1 visit EX Maryann Bonilla OT Jun 08, 2021 11:38
--- NOTE | 2021-06-08 16:39 | Discharge Inst-Skilled Nursing ---
Discharge Inst-Skilled NF Reconcile Patient Problems Problems Reviewed?: Yes Patient Instructions Patient Problems: right hip fracture Goal: ambulation Patient Instructions: WBAT with walker Consult/Follow Up/Orders Follow Up Appt.: [address] Shruthi Bradshaw NF Admit to: On License Of [facility] Certification (SNF) I certify that SNF services are required to be given on an inpatient basis because of the above named patient's need for alf care on a continuing basis for the conditions(s) for which he/she was receiving inpatient hospital services prior to his/her transfer to the SNF. [facility] Facility Order: Wildlife And Game Protector-Evaluate & Treat, Physical Therapy-Evaluate & Treat Oxygen Delivery Method: Nasal Cannula Discharge Diet: Regular Diet Daily Activity as Tolerated: Yes Resuscitation Status: Full Code New & Resume Previous Orders New & Resume Previous Orders remove right hip shakeel on 06/19/21 Rashad Jasso Jun 08, 2021 16:37 RASHAD JASSO MD Jun 08, 2021 16:39
[2021-06-08] MEDS: TAMSULOSIN 0.4 MG (FLOMAX) CAP PO SCH (18:24)
[2021-06-08] MEDS: SERTRALINE 50 MG (ZOLOFT) TABLET PO SCH (20:16)
[2021-06-09] MEDS: LACTATED RINGERS 1,000 ML IV SCH (01:32)
[2021-06-09 03:55] VITALS: BP 116/75
--- NOTE | 2021-06-09 04:35 | DISCHARGE SUMMARY ---
DATE OF SERVICE: DIAGNOSES: 1. Right hip intertrochanteric femur fracture, closed, displaced. 2. Acute on chronic anemia. 3. Atrial fibrillation. 4. Pacemaker. 5. History of cerebrovascular accident. 6. Parkinson's. 7. Hyperlipidemia. PROCEDURE: 1. Right hip intramedullary nail. 2. Transfusion of packed red blood cells. SUMMARY: The patient is an 85-year-old gentleman, who was transferred from outside facility with right hip fracture. He underwent intramedullary nail fixation on the day of admission. Postoperatively, he was slow to progress with weakness. He received 1 unit of packed red blood cells due to his low hemoglobin. At the time of discharge, his wound was clean and dry and had no calf tenderness. Negative Homans sign. CONDITION AT DISCHARGE: Good. DISCHARGE DISPOSITION: Transfer to jail facility for continued physical and occupational therapy. ACTIVITIES: He can weightbear as tolerated on his right lower extremity. DIET: His diet is regular. MEDICATIONS: He is to resume his home medications. Take hydrocodone as needed 5 mg one every six hours for pain as needed. FOLLOWUP: Followup within three weeks. [place] should be removed on 06/19/2021. 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
[2021-06-09 06:02] LABS: HEMATOCRIT 25 % (40-54); HEMOGLOBIN 8.2 g/dL (13.3-17.7); MEAN CORPUSCULAR HEMOGLOBIN 35 pg (25-34); MEAN CORPUSCULAR HGB CONC 33 g/dL (32-36); MEAN CORPUSCULAR VOLUME 104 fL (80-99); MEAN PLATELET VOLUME 9.5 fL (9.0-12.2); PLATELET COUNT 133 10^3/uL (130-400); WHITE BLOOD COUNT 3.6 10^3/uL (4.3-11.0)
[2021-06-09 06:14] LABS: POTASSIUM 3.3 MMOL/L (3.6-5.0)
[2021-06-09 06:15] LABS: CALCIUM 8.2 MG/DL (8.5-10.1)
[2021-06-09 06:20] LABS: CREATININE SERUM 0.64 MG/DL (0.60-1.30)
--- NOTE | 2021-06-09 07:08 | Progress Note ---
Standard Progress Note Progress Notes/Assess & Plan Date Seen by a Provider: Jun 09, 2021 Time Seen by a Provider: 07:07 Progress/Assessment & Plan no complaints Vital Signs Date Time Temp Pulse Resp B/P (MAP) Pulse Ox O2 Delivery O2 Flow Rate FiO2 06/05/21 04:00 36.8 78 18 101/61 (74) 91 Room Air 06/05/21 01:00 82 06/04/21 23:30 36.5 87 18 131/74 (93) 91 Room Air 06/04/21 20:05 36.0 93 16 106/71 (83) 92 Room Air 06/04/21 20:00 Room Air 06/04/21 19:00 89 06/04/21 18:48 Room Air 06/04/21 17:23 37.1 91 16 107/75 (86) 98 Nasal Cannula 2.00 06/04/21 16:45 Nasal Cannula 2 06/04/21 16:45 36.2 20 111/70 (84) 98 Nasal Cannula 2 06/04/21 16:30 20 109/75 (86) 98 Nasal Cannula 2 06/04/21 16:30 Nasal Cannula 2 06/04/21 16:20 20 118/79 (92) 98 Nasal Cannula 2 06/04/21 16:15 Nasal Cannula 3 06/04/21 16:10 20 118/76 (90) 99 Nasal Cannula 3 06/04/21 16:00 36.2 89 20 118/76 (90) 99 Nasal Cannula 3.00 3.00 06/04/21 16:00 20 118/76 (90) 99 OxyMask 3 06/04/21 16:00 Nasal Cannula 3 06/04/21 15:50 18 107/64 (78) 100 OxyMask 3 06/04/21 15:44 36.2 18 102/64 (77) 100 OxyMask 5 06/04/21 15:44 OxyMask 5 06/04/21 13:36 Room Air 06/04/21 12:39 89 06/04/21 12:00 36.3 96 18 140/90 (107) 93 Room Air 06/04/21 10:30 96 18 140/90 93 Room Air 06/04/21 09:15 36.3 93 18 150/89 (109) 94 Room Air 06/04/21 09:15 36.3 93 18 150/89 (109) 94 Room Air I & O 06/05/21 07:00 Intake Total 3250 ml Output Total 575 ml Balance 2675 ml Laboratory Tests Test 06/04/21 11:50 06/04/21 12:10 06/05/21 05:35 Range/Units Valproic Acid (Depakene) Level < 2.0 L 50.0-100.0 UG/ML SARS-CoV-2 RNA (RT-PCR) Not Detected Not Detecte White Blood Count 9.7 4.3-11.0 10^3/uL Red Blood Count 2.78 L 4.30-5.52 10^6/uL Hemoglobin 9.9 L 13.3-17.7 g/dL Hematocrit 29 L 40-54 % Mean Corpuscular Volume 104 H 80-99 fL Mean Corpuscular Hemoglobin 36 H 25-34 pg Mean Corpuscular Hemoglobin Concent 34 32-36 g/dL Red Cell Distribution Width 13.7 10.0-14.5 % Platelet Count 147 130-400 10^3/uL Mean Platelet Volume 10.7 9.0-12.2 fL Sodium Level 138 135-145 MMOL/L Potassium Level 4.1 3.6-5.0 MMOL/L Chloride Level 106 98-107 MMOL/L Carbon Dioxide Level 23 21-32 MMOL/L Anion Gap 9 5-14 MMOL/L Blood Urea Nitrogen 12 7-18 MG/DL Creatinine 0.77 0.60-1.30 MG/DL Estimat Glomerular Filtration Rate 96 BUN/Creatinine Ratio 16 Glucose Level 132 H 70-105 MG/DL Calcium Level 8.6 8.5-10.1 MG/DL R hip dressing intact Intact DF and PF of toes and ankle. Intact sensatin to light touch throughout pulses equal s/p R hip Im vikash PT/OT WBAT with walker IRU eval Final Diagnosis no complaints Vital Signs Date Time Temp Pulse Resp B/P (MAP) Pulse Ox O2 Delivery O2 Flow Rate FiO2 06/09/21 03:55 36.6 82 18 116/75 (89) 95 Room Air 06/09/21 01:00 90 06/08/21 23:57 37.0 84 16 127/79 (95) 94 Room Air 06/08/21 20:16 Nasal Cannula 1.00 06/08/21 19:49 36.2 89 16 104/59 (74) 95 06/08/21 19:00 82 06/08/21 16:05 36.7 83 16 119/54 (75) 93 06/08/21 12:41 80 06/08/21 12:00 36.3 94 17 147/64 (91) 92 Nasal Cannula 1.00 06/08/21 09:30 92 Nasal Cannula 1.00 06/08/21 08:00 37.0 90 18 110/62 (78) 91 Nasal Cannula 1.00 06/08/21 08:00 Nasal Cannula 1.00 I & O 06/09/21 07:00 Intake Total 1805 ml Output Total 975 ml Balance 830 ml Laboratory Tests Test 06/09/21 05:59 Range/Units White Blood Count 3.6 L 4.3-11.0 10^3/uL Red Blood Count 2.37 L 4.30-5.52 10^6/uL Hemoglobin 8.2 L 13.3-17.7 g/dL Hematocrit 25 L 40-54 % Mean Corpuscular Volume 104 H 80-99 fL Mean Corpuscular Hemoglobin 35 H 25-34 pg Mean Corpuscular Hemoglobin Concent 33 32-36 g/dL Red Cell Distribution Width 14.8 H 10.0-14.5 % Platelet Count 133 130-400 10^3/uL Mean Platelet Volume 9.5 9.0-12.2 fL Sodium Level 140 135-145 MMOL/L Potassium Level 3.3 L 3.6-5.0 MMOL/L Chloride Level 103 98-107 MMOL/L Carbon Dioxide Level 28 21-32 MMOL/L Anion Gap 9 5-14 MMOL/L Blood Urea Nitrogen 8 7-18 MG/DL Creatinine 0.64 0.60-1.30 MG/DL Estimat Glomerular Filtration Rate 119 BUN/Creatinine Ratio 13 Glucose Level 97 70-105 MG/DL Calcium Level 8.2 L 8.5-10.1 MG/DL R hip incision echymotic without erythema no calf tenderness s/p R hip IM vikash DC to OBED Junior MD Jun 09, 2021 07:08
[2021-06-09 08:00] VITALS: BP 127/78
--- NOTE | 2021-06-09 10:10 | Physical Therapy Daily Note ---
PT Daily Note-Current Subjective Patient agrees to PT. Transfers SCALE: Activities may be completed with or without assistive devices. 4-Pojtfdrlrr-jgrzjei completes the activity by him/herself with no assistance from a helper. 5-Set-up or Clean-up Assistance-helper sets up or cleans up; patient completes activity. [place] assists only prior to or following the activity. 4-Supervision or Touching Assistance-helper provides verbal cues and/or touching/steadying and/or contact guard assistance as patient completes activity. Assistance may be provided throughout the activity or intermittently. 3-Partial/Moderate Assistance-helper does LESS THAN HALF the effort. [place] lifts, holds or supports trunk or limbs, but provides less than half the effort. 2-Substantial/Maximal Assistance-helper does MORE THAN HALF the effort. [place] lifts or holds trunk or limbs and provides more than half the effort. 3-Vcuousoih-kfxpau does ALL the effort. Patient does none of the effort to complete the activity. Or, the assistance of 2 or more helpers is required for the patient to complete the activity. If activity was not attempted, code reason: 7-Patient Refused. 9-Not Applicable-not attempted and the patient did not perform the activity before the current illness, exacerbation or injury. 10-Not Attempted due to Environmental Limitations-(lack of equipment, weather restraints, etc.). 88-Not Attempted due to Medical Conditions or Safety Concerns. Sit to Stand (QC): 1 (x 3 sets with SPT to w/c for xray) Weight Bearing Right Lower Extremity: Right Weight Bearing/Tolerated Exercises Seated Therapy Exercises: Long arc quads Seated Reps: 15 (AAROM) Standing: Sit to Stand (3 sets) Assessment Noted increase SOA at rest and with minimal activity. PT to continue to address functional strength to improve functional mobility (bed mobility and transfers) PT Short Term Goals Short Term Goals Time Frame: Jun 19, 2021 Roll Left & Right: 3 Sit to lyin Lying to sitting on side of be: 3 Sit to stand: 3 Chair/jeo-tf-nsifr transfer: 3 Toilet transfer: 3 Walk 10 feet: 2 Walk 50 feet with two turns: 2 PT Roller Inspector And Mender Goals Roller Inspector And Mender Goals PT Roller Inspector And Mender Goals Time Frame: Jul 10, 2021 Roll Left & Right (QC): 5 Sit to Lying (QC): 5 Lying-Sitting on Side/Bed(QC): 5 Sit to Stand (QC): 5 Chair/Ewh-wi-Scpdd Xfer(QC): 5 Toilet Transfer (QC): 5 Car Transfer (QC): 4 Does the Patient Walk: Yes Walk 10 feet (QC): 4 Walk 50ft with 2 Turns (QC): 4 Walk 150 ft (QC): 3 Does the Pt use WC or Scooter?: No PT Plan Treatment/Plan Treatment Plan: Continue Plan of Care Treatment Plan: Bed Mobility, Education, Functional Activity Vandana, Functional Strength, Group Therapy, Gait, Safety, Therapeutic Exercise, Transfers Treatment Duration: Aug 09, 2021 Frequency: 6 times per week Estimated Hrs Per Day: .25 hour per day Time/GCodes Time In: 920 Time Out: 930 Total Billed Treatment Time: 10 Total Billed Treatment 1 visit EX 10 min RAMBO PAYTON PT Jun 09, 2021 10:10
--- NOTE | 2021-06-09 10:14 | Diagnostic Imaging Report ---
INDICATION: Abnormal lung sounds, hip fracture, recent dyspnea and hypoxia, shortness of breath. TECHNIQUE: Two view chest 9:45 AM CORRELATION STUDY: 06/06/2021 FINDINGS: Left-sided dual-chamber pacemaker remains in place. Perclosure device over the central heart. Heart size is enlarged. Vasculature overall increased. Bilateral perihilar pulmonary opacities left greater than right. Elevated left diaphragm with asymmetric left lung volume loss again demonstrated. Small effusions not excluded. Slight accentuated thoracic kyphosis. Mild compression deformities of thoracic and lumbar vertebral bodies, age indeterminate. IMPRESSION: 1. Cardiac enlargement with what appears to be increasing vascular congestion and mild perihilar edema. Superimposed perihilar infiltrate opacities not excluded. Dictated by: Dictated on workstation # [id number]
[2021-06-09] MEDS: ENOXAPARIN 40 MG/0.4 ML (LOVENOX) SYR SC SCH (10:20)
[2021-06-09] MEDS: PANTOPRAZOLE 40 MG (PROTONIX) TAB PO SCH (10:20)
[2021-06-09] MEDS: SENNA W/DOCUSATE (SENOKOT S) TABLET PO SCH ×2 (10:20→21:19)
[2021-06-09] MEDS: IRON SUCROSE 200 MG/10 ML (VENOFER) VIAL IV NR (10:20)
[2021-06-09] MEDS: ASPIRIN E.C. 81 MG (ECOTRIN) TAB PO SCH (10:21)
[2021-06-09] MEDS: DIVALPROEX 250 MG DELAYED RELEASE (DEPAKOTE) TAB PO SCH ×2 (10:21→21:19)
[2021-06-09] MEDS: VITAMIN D3 125 MCG (5,000 UNITS) CAPSULE PO SCH (10:21)
[2021-06-09] MEDS: BETHANECHOL 25 MG (URECHOLINE) TAB PO SCH ×2 (10:21→21:19)
[2021-06-09] MEDS: SINEMET CR 50/200 (CARBIDOPA/LEVODOPA SA) TAB PO SCH ×2 (10:25→21:23)
[2021-06-09] MEDS ORDERED: TRM50T PO (10:58)
[2021-06-09] MEDS ORDERED: ACET325T49 PO (10:58)
[2021-06-09] MEDS ORDERED: FERR500P12 MC (10:58)
[2021-06-09] MEDS ORDERED: SENN-36 PO (10:58)
[2021-06-09 12:00] VITALS: BP 116/55
[2021-06-09] MEDS ORDERED: KCL 20 MEQ TAB (K-DUR) PO NR (12:00)
[2021-06-09] MEDS ORDERED: FUROSEMIDE 40 MG/4 ML INJ (LASIX) IVP NR (12:00)
--- NOTE | 2021-06-09 12:06 | Cardiology Progress Note ---
Subjective Date Seen by Provider: Jun 09, 2021 Time Seen by Provider: 12:06 Subjective/Events-last exam Patient was seen at bedside, laying down comfortably, no chest pain or shortness of breath, having generalized fatigue Objective-Cardiology Exam Last Set of Vital Signs Vital Signs 06/09/21 08:00 Temp 36.8 Pulse 80 Resp 18 B/P (MAP) 127/78 (94) Pulse Ox 94 O2 Delivery Nasal Cannula O2 Flow Rate 1.00 I&O Intake and Output 06/09/21 00:00 Intake Total 1780 ml Output Total 1175 ml Balance 605 ml Intake Oral 780 ml IV Total 1000 ml Output Urine Total 1175 ml # Bowel Movements 2 General: Alert, Oriented X3, Cooperative HEENT: Atraumatic, PERRLA Lungs: Clear to Auscultation, Normal Air Movement Heart: Normal S1, Normal S2, Other (irregularly irregular) Abdomen: Normal Bowel Sounds, Soft Extremities: No Clubbing, Other (trace edema RLE) Neuro: Cranial Nerves 3-12 NL Psych/Mental Status: Mental Status NL, Mood NL Results Lab Laboratory Tests 06/09/21 05:59 A/P-Cardiology Admission Diagnosis Right hip fracture Chronic atrial fibrillation Permanent pacemaker Hypertension Assessment/Plan Right hip fracture, s/p repain with Dr. Hawkins on June 05, 2021, continue PT/OT Anemia, s/p transfusion on 06/06/21, continue to monitor. Shortness of breath,responded well to Lasix, conitnue to monitor tolerance and response. Chronic persistent atrial fibrillation, rate is controlled. Has underlying sinus node dysfunction and permanent pacemaker. Telemetry revealed atrial paced rhythm. [id number] score 4, yearly risk of stroke without oral anticoagulation is 4%. Patient has history of embolic stroke and hemorrhagic stroke, unable to tolerate oral anticoagulation and had ELHAM clip done at . Sinus node dysfunction, permanent pacemaker, had generator replacement done in April 2020. Continue to monitor Hypertension, controlled. Continue to monitor. Hyperlipidemia, continue to monitor lipids History of seizure disorder. Continue to monitor Mild bilateral carotid stenosis, continue to monitor Okay for discharge and follow-up as an outpatient in 4 to 6 weeks KEDAR BOYKIN MD Jun 09, 2021 12:06
--- NOTE | 2021-06-09 14:10 | Occupational Ther Daily Note ---
OT Current Status-Daily Note Subjective Pt reports discomfort in R hip, no numerical value given. Appearance Pt left supine in bed, all needs within reach. ADL-Treatment Therapy Code Descriptions/Definitions Functional [place] Measure: 0=Not Assessed/NA 4=Minimal Assistance 1=Total Assistance 5=Supervision or Setup 2=Maximal Assistance 6=Modified [place] 3=Moderate Assistance 7=Complete IndependenceSCALE: Activities may be completed with or without assistive devices. 6-Lzvdvibbqk-hzfphpq completes the activity by him/herself with no assistance from a helper. 5-Set-up or Clean-up Assistance-helper sets up or cleans up; patient completes activity. [place] assists only prior to or following the activity. 4-Supervision or Touching Assistance-helper provides verbal cues and/or touching/steadying and/or contact guard assistance as patient completes activity. Assistance may be provided throughout the activity or intermittently. 3-Partial/Moderate Assistance-helper does LESS THAN HALF the effort. [place] lifts, holds or supports trunk or limbs, but provides less than half the effort. 2-Substantial/Maximal Assistance-helper does MORE THAN HALF the effort. [place] lifts or holds trunk or limbs and provides more than half the effort. 4-Xxnvviphe-xupvjn does ALL the effort. Patient does none of the effort to complete the activity. Or, the assistance of 2 or more helpers is required for the patient to complete the activity. If activity was not attempted, code reason: 7-Patient Refused. 9-Not Applicable-not attempted and the patient did not perform the activity before the current illness, exacerbation or injury. 10-Not Attempted due to Environmental Limitations-(lack of equipment, weather restraints, etc.). 88-Not Attempted due to Medical Conditions or Safety Concerns. Other Treatment UE exercises performed with goal to promote increased strength and endurance needed for adls and transfers. Pt closing eyes and frequently falling asleep during treatment. Unable to tolerate or complete movements through full range this date. His daughter reports that he did not sleep well. Pt often would complete 6-7 reps before closing eyes, and needing cues for attention back to task. Session ended early due to difficulty staying alert. Education OT Patient Education: Correct positioning, Exercise program, Progress toward Goal/Update tx plan, Purpose of tx/functional activities, Reviewed precautions Teaching Recipient: Patient, Family Teaching Methods: Demonstration, Discussion Response to Teaching: Reinforcement Needed OT Nurse Rn Bsn Goals Shelter Goals Time Frame: Jun 27, 2021 Oral Hygiene (QC): 3 Toileting Hygiene (QC): 3 Shower/Bathe Self (QC): 3 Upper Body Dressing (QC): 3 Lower Body Dressing (QC): 3 1=Demonstrate adherence to instructed precautions during ADL tasks. 2=Patient will verbalize/demonstrate understanding of assistive d evices/modifications for ADL. 3=Patient will improve strength/tolerance for activity to enable patient to perform ADL's. OT Education/Plan Problem List/Assessment Assessment: Decreased Activ Tolerance, Decreased Safety Aware, Decreased UE Strength, Dependent Transfers, Impaired Bed Mobility, Impaired Cognition, Impaired Coordination, Impaired Funct Balance, Impaired I ADL's, Impaired Self- Care Skills, Restricted Funct UE ROM Discharge Recommendations Plan/Recommendations: Continue POC Treatment Plan/Plan of Care Treatment,Training & Education: Yes Patient would benefit from OT for education, treatment and training to promote independence in ADL's, mobility, safety and/or upper extremity function for ADL's. Plan of Care: ADL Retraining, Caregiver Training, Functional Mobility, UE Funct Exercise/Act, UE Neuromus Re-Ed/Coord Treatment Duration: Jun 27, 2021 Frequency: 5 times per week Estimated Hrs Per Day: .25 hour per day Agreement: Yes Time/GCodes Start Time: 13:48 Stop Time: 14:04 Total Time Billed (hr/min): 16 Billed Treatment Time 1 visit Ex Maryann Lcakey OT Jun 09, 2021 14:10
[2021-06-09 15:44] VITALS: BP 107/56
[2021-06-09] MEDS: TAMSULOSIN 0.4 MG (FLOMAX) CAP PO SCH (17:51)
[2021-06-09 20:00] VITALS: BP 119/59
[2021-06-09] MEDS: SERTRALINE 50 MG (ZOLOFT) TABLET PO SCH (21:19)
[2021-06-10 00:05] VITALS: BP 138/71
[2021-06-10 07:45] VITALS: BP 127/66
[2021-06-10] MEDS: VITAMIN D3 125 MCG (5,000 UNITS) CAPSULE PO SCH (08:31)
[2021-06-10] MEDS: DIVALPROEX 250 MG DELAYED RELEASE (DEPAKOTE) TAB PO SCH (08:31)
[2021-06-10] MEDS: ENOXAPARIN 40 MG/0.4 ML (LOVENOX) SYR SC SCH (08:31)
[2021-06-10] MEDS: ASPIRIN E.C. 81 MG (ECOTRIN) TAB PO SCH (08:31)
[2021-06-10] MEDS: SENNA W/DOCUSATE (SENOKOT S) TABLET PO SCH (08:31)
[2021-06-10] MEDS: SINEMET CR 50/200 (CARBIDOPA/LEVODOPA SA) TAB PO SCH (08:32)
[2021-06-10] MEDS: PANTOPRAZOLE 40 MG (PROTONIX) TAB PO SCH (08:32)
[2021-06-10] MEDS: BETHANECHOL 25 MG (URECHOLINE) TAB PO SCH (08:32)
[2021-06-10] MEDS: IRON SUCROSE 200 MG/10 ML (VENOFER) VIAL IV NR (08:32)
--- NOTE | 2021-06-10 09:57 | Physical Therapy Daily Note ---
PT Daily Note-Current Subjective Patient agrees to bed exercises. Mental Status Patient Orientation: Normal For Age Attachments: IV Transfers SCALE: Activities may be completed with or without assistive devices. 9-Tutcewjgnj-tijwtll completes the activity by him/herself with no assistance from a helper. 5-Set-up or Clean-up Assistance-helper sets up or cleans up; patient completes activity. [place] assists only prior to or following the activity. 4-Supervision or Touching Assistance-helper provides verbal cues and/or touching/steadying and/or contact guard assistance as patient completes activity. Assistance may be provided throughout the activity or intermittently. 3-Partial/Moderate Assistance-helper does LESS THAN HALF the effort. [place] lifts, holds or supports trunk or limbs, but provides less than half the effort. 2-Substantial/Maximal Assistance-helper does MORE THAN HALF the effort. [place] lifts or holds trunk or limbs and provides more than half the effort. 4-Ewingfjhh-hosttl does ALL the effort. Patient does none of the effort to complete the activity. Or, the assistance of 2 or more helpers is required for the patient to complete the activity. If activity was not attempted, code reason: 7-Patient Refused. 9-Not Applicable-not attempted and the patient did not perform the activity before the current illness, exacerbation or injury. 10-Not Attempted due to Environmental Limitations-(lack of equipment, weather restraints, etc.). 88-Not Attempted due to Medical Conditions or Safety Concerns. Weight Bearing Right Lower Extremity: Right Weight Bearing/Tolerated Exercises Supine Ex: Ankle pumps, Heel Slides, Straight leg raise, Hip abd/add Supine Reps: 15 (2 sets bilaterally AAROM) Assessment Patient to dismiss to MA on this date per physician report. Patient tolerated treatment. PT Short Term Goals Short Term Goals Time Frame: Jun 19, 2021 Roll Left & Right: 3 Sit to lyin Lying to sitting on side of be: 3 Sit to stand: 3 Chair/[id number]-[id number] transfer: 3 Toilet transfer: 3 Walk 10 feet: 2 Walk 50 feet with two turns: 2 PT Senior Care Goals Senior Care Goals PT Senior Care Goals Time Frame: Jul 10, 2021 Roll Left & Right (QC): 5 Sit to Lying (QC): 5 Lying-Sitting on Side/Bed(QC): 5 Sit to Stand (QC): 5 Chair/Iuj-ck-Clwcl Xfer(QC): 5 Toilet Transfer (QC): 5 Car Transfer (QC): 4 Does the Patient Walk: Yes Walk 10 feet (QC): 4 Walk 50ft with 2 Turns (QC): 4 Walk 150 ft (QC): 3 Does the Pt use WC or Scooter?: No PT Plan Treatment/Plan Treatment Plan: Discontinue PT Treatment Plan: Bed Mobility, Education, Functional Activity Vandana, Functional Strength, Group Therapy, Gait, Safety, Therapeutic Exercise, Transfers Treatment Duration: Aug 09, 2021 Frequency: 6 times per week Estimated Hrs Per Day: .25 hour per day Time/GCodes Time In: 927 Time Out: 936 Total Billed Treatment Time: 9 Total Billed Treatment 1 visit EX 9 min RAMBO PAYTON PT Jun 10, 2021 09:57
[2021-06-10 10:15] VITALS: BP 127/66
--- NOTE | 2021-06-10 11:06 | Progress Note ---
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 PT WAS SCHEDULED TO GO TO THE [facility] YESTERDAY, BUT HIS DISCHARGE WAS DELAYED DUE TO ASSIST[facility] COMPUTER MALFUNCTION. THE PATIENT REPORTS THAT HE IS FEELING BETTER TODAY, STILL HAS SOME HIP PAIN, DTR REPORTS THAT HE IS ONLY TRANSFERRING, NOT WALKING YET. HE HAD A BOWEL MOVEMENT LAST NIGHT, NO URINARY SYMPTOMS, NO CHEST PAIN, NO SHORTNESS OF BREATH. Review of Systems General: No Chills, No Night Sweats; Fatigue; No Malaise, No Appetite, No Other HEENT: No Head Aches, No Visual Changes, No Eye Pain, No Ear Pain, No Dysphasia, No Sinus Congestion, No Post Nasal Drip, No Sore Throat, No Other Pulmonary: No Dyspnea, No Cough, No Pleuritic Chest Pain, No Other Cardiovascular: No: Chest Pain, Palpitations, Orthopnea, Paroxysmal Noc. Dyspnea, Edema, Lt Headedness, Other Gastrointestinal: No: Nausea, Vomiting, Abdominal Pain, Diarrhea, Constipation Genitourinary: No Dysuria; Incontinence Musculoskeletal: No: shoulder pain, back pain, leg pain Neurological: Weakness; No: Numbness All Other Systems Reviewed All Other Systems Reviewed: Yes Objective Exam Vital Signs Vital Signs Date Time Temp Pulse Resp B/P (MAP) Pulse Ox O2 Delivery O2 Flow Rate FiO2 06/10/21 08:35 95 Nasal Cannula 1.00 06/10/21 07:45 36.3 79 18 127/66 (86) 96 Nasal Cannula 1.00 06/10/21 07:00 71 06/10/21 01:00 87 06/10/21 00:05 36.6 89 20 138/71 (93) 95 Nasal Cannula 1.00 06/09/21 20:00 Nasal Cannula 1.00 06/09/21 20:00 36.2 89 18 119/59 (79) 95 Nasal Cannula 1.00 06/09/21 19:00 85 06/09/21 15:44 36.8 86 20 107/56 (73) 94 Room Air 06/09/21 12:42 83 06/09/21 12:00 36.8 89 20 116/55 (75) 95 Room Air I & O 06/10/21 07:00 Intake Total 740 ml Output Total 475 ml Balance 265 ml General Appearance: No Apparent Distress, WD/WN HEENT: PERRL/EOMI Neck: Normal Inspection, Non Tender Respiratory: Chest Non Tender, Decreased Breath Sounds (BASES) Cardiovascular: Regular Rate, Rhythm, Systolic Murmur Gastrointestinal: Non Tender, Soft Rectal: Deferred Extremity: Non Tender, No Calf Tenderness, No Pedal Edema Neurologic/Psychiatric: Alert, Other (ORIENTED TO PERSON AND PLACE, NOT TIME) Skin: Warm/Dry, Other (SURGICAL SITE WITH DRESSING IN PLACE ON RIGHT HIP) Results Lab Microbiology 06/04/21 MRSA Screen - Final, Complete MRSA not isolated Assessment/Plan Assessment/Plan Admission Dx 1. S/P Right hip intramedullary nail placement 2. Acute on chronic anemia due to post op blood loss 2. Conversational Dyspnea 3. Hypertension/Pacemaker 4. Parkinson's 5. History of CVA with Residual Weakness/Deficits 6. Right Hip/Femur Fracture Assessment and Plan RIGHT HIP/FEMUR FRACTURE ACUTE ON CHRONIC ANEMIA HYPERTENSION PARKINSON'S DISEASE HISTORY OF STROKE/CVA RIGHT HIP/FEMUR FRACTURE - STATUS POST INTRAMEDULLARY FERNANDA PLACEMENT - PT TO BE DISCHARGED TODAY TO THE ASSIST[facility], PHONE CALL PLACED AND THEY ARE ON THEIR WAY TO PICK PT UP AT 10AM. ACUTE ON CHRONIC ANEMIA - STABLE - HGB OF 8.2 TODAY. - WILL NEED TO BE CHECKED OUTPT AT [facility]. HYPERTENSION - HOME REGIMEN RESTARTED PARKINSON'S DISEASE - - PT ON SINEMET - WILL SLOW HIS RECOVERY FROM THE HIP DUE TO HIS CHRONIC MOVEMENT IMPAIRMENT FROM PARKINSON'S DISEASE. HISTORY OF STROKE/CVA - THERAPY, SUPPORTIVE CARE, DC TO [facility] TODAY. 1. S/P Right hip intramedullary nail placement--continue PT/OT, lovenox DVT ppx, remove urinary catheter 2. Acute on chronic anemia due to post op blood loss--Hgb at 8 today, iron injection, repeat labs in am 2. Conversational Dyspnea-- on oxygen, use incentive spirometer 10x/hr, repeat CXR 3. Hypertension/Pacemaker--resume home meds 4. Parkinson's--on Sinemet 5. History of CVA with Residual Weakness/Deficits--stable 6. Right Hip/Femur Fracture--surgery was performed 3 days ago PAUL JUAREZ MD Jun 10, 2021 11:06
--- NOTE | 2021-06-10 11:18 | Progress Note ---
Subjective Date Seen by a Provider: Jun 09, 2021 Time Seen by a Provider: 10:15 Subjective/Events-last exam Fwup right hip fracture, post-op anemia, atelectesis, HTN, history of CVA with residual deficits, Parkinson's. Sitting up in chair. Plan is for NH today. Objective Exam Vital Signs Date Time Temp Pulse Resp B/P (MAP) Pulse Ox O2 Delivery O2 Flow Rate FiO2 06/10/21 08:35 95 Nasal Cannula 1.00 06/10/21 07:45 36.3 79 18 127/66 (86) 96 Nasal Cannula 1.00 06/10/21 07:00 71 06/10/21 01:00 87 06/10/21 00:05 36.6 89 20 138/71 (93) 95 Nasal Cannula 1.00 06/09/21 20:00 Nasal Cannula 1.00 06/09/21 20:00 36.2 89 18 119/59 (79) 95 Nasal Cannula 1.00 06/09/21 19:00 85 06/09/21 15:44 36.8 86 20 107/56 (73) 94 Room Air 06/09/21 12:42 83 06/09/21 12:00 36.8 89 20 116/55 (75) 95 Room Air I & O 06/10/21 06:59 Intake Total 740 ml Output Total 475 ml Balance 265 ml Capillary Refill : Less Than 3 SecondsLess Than 3 Seconds General Appearance: No Apparent Distress Respiratory: Decreased Breath Sounds (bases) Cardiovascular: Regular Rate, Rhythm, Systolic Murmur Gastrointestinal: normal bowel sounds, non tender, soft Extremity: Non Tender, No Calf Tenderness, No Pedal Edema Neurologic/Psychiatric: Alert, Oriented x3 Skin: Warm/Dry Results Lab Microbiology 06/04/21 MRSA Screen - Final, Complete MRSA not isolated Assessment/Plan Assessment/Plan Assess & Plan/Chief Complaint 1. Right Hip Fracture--S/P surgery, pain well controlled, has been on lovenox for DVT prophylaxis, plan is for CT today[facility] 2. Acute on Chronic Anemia--S/P transfusion postoperatively and has been given IV iron, H/H stable 3. Post-op Atelectesis--discussed importance of IS 4. Pulmonary Vascular Congestion--repeat lasix today 5. Hypertension--stable 6. Parkinson's--back on sinemet 7. History of CVA with residual deficits--stable Clinical Quality Measures Admission Status Admission Dx 1. Right Hip/Femur Fracture--Dr. Hawkins has accepted for surgery, will need rehab postop 2. Hypertension/Pacemaker--resume home meds 3. Parkinson's--on Sinemet 4. History of CVA with Residual Weakness/Deficits--stable NAPOLEON AKHTAR DO Jun 10, 2021 11:18
== END 2021-06-10 10:20 | DRG 481 ==
LOC: EDUNIT# 09:24 → ER 09:26 → 4TH 09:55
PROVIDERS: ADMIT Family Medicine; ATTEND Family Medicine
PROC: 0QS606Z Reposition Right Upper Femur with Intramedullary Internal Fixation Device, Open Approach (ICD-10-PCS; principal; 2021-06-04 14:36)
DX: S72.141A Displaced intertrochanteric fracture of right femur, initial encounter for closed fracture (principal); D62 Acute posthemorrhagic anemia; I48.19 Other persistent atrial fibrillation; I69.354 Hemiplegia and hemiparesis following cerebral infarction affecting left non-dominant side; W19.XXXA Unspecified fall, initial encounter; G20 Parkinson's disease; I10 Essential (primary) hypertension; I49.5 Sick sinus syndrome; E78.5 Hyperlipidemia, unspecified; I65.23 Occlusion and stenosis of bilateral carotid arteries; Z20.822 Contact with and (suspected) exposure to COVID-19; I69.391 Dysphagia following cerebral infarction; R13.10 Dysphagia, unspecified; N40.0 Benign prostatic hyperplasia without lower urinary tract symptoms; M19.91 Primary osteoarthritis, unspecified site; F32.A Depression, unspecified; Z95.0 Presence of cardiac pacemaker; Z79.82 Long term (current) use of aspirin; Z88.6 Allergy status to analgesic agent; Z88.8 Allergy status to other drugs, medicaments and biological substances; Z96.642 Presence of left artificial hip joint
CPT/HCPCS: 36415; 51702; 71045; 71046; 76000; 80048; 80164; 83735; 85014; 85018; 85027; 86850; 86900; 86901; 86920; 87081; 87636; 93005; 94664; 94760

== ENCOUNTER 2021-07-03 13:55 | Inpatient (IN) | payer MEDICARE ==
[2021-07-03] VITALS (13 sets, daily range): BP systolic 85–124; BP diastolic 65–89
[~2021-07-03] VITALS: Ht 160 cm; Wt 85.6 kg
[~2021-07-03 13:55] MED LIST changes: -BETH25TA PO; +BETH25TA2 PO; +BETH50TA2 PO; +CETI10TA17 PO; +ETOMIDATE IV SOLN 20 MG/10 ML VIAL IV ONE; +FERR500P12 MC; +FURO40TA4 PO; +POLY1DRO OP; +POTA10CA43 PO; -POTA10TA36 PO; +POTA10TA37 PO; +ROCURONIUM 10 MG/ML 5 ML SYRINGE IV ONE; +SENN-36 PO
[2021-07-03] MEDS ORDERED: CEFEPIME INJECTION 1,000 MG in NS (IVPB) 50 ML IV ONE (14:30)
[2021-07-03] MEDS ORDERED: VANCOMYCIN INJECTION 750 MG in NS (IVPB) 250 ML IV SCH (14:30)
[2021-07-03] MEDS ORDERED: PROPOFOL DRIP (ICU) 100 ML IV SCH (14:30)
[2021-07-03] MEDS ORDERED: NS IV 1000 ML 1,000 ML IV SCH (14:30)
[2021-07-03 14:32] LABS: BASOPHILS # (AUTO) 0.1 10^3/uL (0.0-0.1); BASOPHILS % (AUTO) 0 % (0-10); EOSINOPHILS % (AUTO) 0 % (0-10); HEMATOCRIT 58 % (40-54); LYMPHOCYTES # (AUTO) 1.9 10^3/uL (1.0-4.0); LYMPHOCYTES % (AUTO) 10 % (12-44); MEAN CORPUSCULAR HEMOGLOBIN 36 pg (25-34); MEAN CORPUSCULAR HGB CONC 31 g/dL (32-36); MEAN CORPUSCULAR VOLUME 117 fL (80-99); MEAN PLATELET VOLUME 12.6 fL (9.0-12.2); MONOCYTES % (AUTO) 10 % (0-12); NEUTROPHILS # (AUTO) 16.2 10^3/uL (1.8-7.8); NEUTROPHILS % (AUTO) 80 % (42-75); PLATELET COUNT 137 10^3/uL (130-400); WHITE BLOOD COUNT 20.4 10^3/uL (4.3-11.0)
[2021-07-03 14:33] LABS: BILIRUBIN,URINE 1+ (NEGATIVE); CLARITY,URINE CLEAR; COLOR,URINE YELLOW; GLUCOSE, URINE (UA) NEGATIVE (NEGATIVE); KETONES,URINE TRACE (NEGATIVE); LEUKOCYTE ESTERASE ,URINE NEGATIVE (NEGATIVE); NITRITE,URINE NEGATIVE (NEGATIVE); PROTEIN,URINE NEGATIVE (NEGATIVE)
[2021-07-03] MEDS ORDERED: NOREPINEPHRINE 8 MG/250 ML 250 ML IV ONE (14:33)
--- NOTE | 2021-07-03 14:36 | Diagnostic Imaging Report ---
INDICATION: Status post intubation. Respiratory failure. COMPARISON: 06/09/2021. FINDINGS: A single frontal radiographic view of the chest was obtained. The endotracheal tube is now identified with the tip below the clavicular heads and above the yamini. A gastric tube is also seen and projects over the left heart. There is asymmetric elevation of the left hemidiaphragm and left basilar airspace opacities. The right lung is relatively clear. A small effusion cannot be excluded. There is no pneumothorax on either side. The cardiac silhouette is also partially obscured. The pulmonary vasculature is within normal limits. A left-sided dual lead pacemaker is present. IMPRESSION: 1. Lines and tubes as above. 2. Persistent asymmetric elevation of the left hemidiaphragm with probable left basilar atelectasis. Superimposed infiltrate could not be entirely excluded. Dictated by: Dictated on workstation # [id number]
[2021-07-03 14:40] LABS: ABG BASE EXCESS -3.9 MMOL/L (-2.5-2.5); ABG OXYGEN SATURATION 100 % (94-100); ABG PCO2 35 MMHG (35-45); ABG PH 7.38 (7.37-7.43); ABG PO2 304 MMHG (79-93); ABG TCO2 21.9 MMOL/L (21.0-31.0)
[2021-07-03 14:41] LABS: ALLENS TEST YES-POS; INSPIRED O2 100%; PATIENT TEMP 35.2; VENTILATOR YES
[2021-07-03 14:45] LABS: BACTERIA,URINE NEGATIVE /HPF
[2021-07-03 15:00] LABS: LYMPHOCYTES % (MANUAL) 9 %; MONOCYTES % (MANUAL) 6 %; NEUTROPHILS % (MANUAL) 85 %; RBC MORPH NORMAL
--- NOTE | 2021-07-03 15:09 | ED Respiratory ---
General Chief Complaint: Respiratory Problems Stated Complaint: RESP DISTRESS Nursing Triage Note: PT ARRIVED PER EMS, PT FROM [place], PT SOA ON BIPAP FROM EMS, PT HAS SL IN L WRIST W NS INFUSING SLOWLY. PT VERY COLD TO TOUCH. PT HAS TOLD EMS THAT HE WANTED EVERYTHING DONE IN CASE OF RESP FAILURE. [facility] STATES PT WAS FINE THIS AM. Source: patient, EMS Exam Limitations: clinical condition History of Present Illness Date Seen by Provider: Jul 03, 2021 Time Seen by Provider: 13:55 Initial Comments Patient presents the ER by EMS from [facility] with chief complaint that this morning he was doing fine and then this afternoon after lunch he was having severe respiratory distress with oxygen saturations in the 70s on room air. He does not have supplemental oxygen at baseline. They put him on 6 L and brought him up into the 80s. EMS put him on a CPAP at 15 L of oxygen and were able to get him to breathe a little better but could not get a good oxygen pulse oximeter reading. He was dusky blue in his fingertips and working very hard to breathe and sweaty. He did indicate to EMS that he was a full code and if needed to be intubated he was okay with that. Shortly after arrival we briefed him on our plan to intubate him. Patient had a negative Covid swab on Saturday, 3 days ago. EMS gave him 125 mg Solu-Medrol in route. EMS reports at the time they arrived he had a blood pressure of 84 systolic. He reports to us he has not allergy to fentanyl and morphine. He has a history of Parkinson's, stroke with residual deficits, hypertension, anemia and is rehabbing from a right hip fracture. Pacemaker 2020 in his left chest. He arrived at the rehab center at the beginning of June. Atrial fibrillation status post ELHAM clip done at . Persistent atrial fibrillation off anticoagulation. History of hyperlipidemia and seizure disorder mild bilateral carotid stenosis. Bette, daughter relates that he had a stroke 13 years ago and has had problems with choking when he eats or drinks since then. Patient was off of anticoagulation because of severe bleeding from his surgical site requiring tra nsfusions. Allergies and Home Medications Allergies Coded Allergies: Cobamamide (Unverified Allergy, Unknown, MEMORY LOSS, 01/18/14) cyanocobalamin (Unverified Allergy, Unknown, MEMORY LOSS, 01/18/14) fentanyl (Verified Allergy, Unknown, 12/08/15) lactose (Verified Allergy, Unknown, 03/03/18) morphine (Verified Allergy, Unknown, Pt has received tramadol in the past, 06/06/21) codeine (Unverified Adverse Reaction, Mild, SICK, 08/23/15) promethazine HCl (Unverified Adverse Reaction, Mild, LOSS OF MEMORY, 04/12/11) hydrocodone (Verified Adverse Reaction, Unknown, 12/08/15) low blood pressure Uncoded Allergies: narcotics (Adverse Reaction, Unknown, 12/08/15) Patient Home Medication List Home Medication List Reviewed: Yes Acetaminophen (Tylenol 8 Hour) 650 Mg Tablet.er, 650 MG PO Q4H PRN for PAIN-MILD (1-4), (Reported) Entered as Reported by: SOFÍA CHICAS on 07/04/21940 Last Action: Reviewed Aspirin (Aspirin EC) 81 Mg Tablet.dr, 81 MG PO 1800, (Reported) Entered as Reported by: KIKA SEWELL on 03/03/18 1556 Last Action: Reviewed Bethanechol Chloride (Bethanechol Chloride) 50 Mg Tablet, 50 MG PO 0600,1800, (Reported) Entered as Reported by: JULITO HAJI on 06/05/2131 Last Action: Reviewed Carbidopa/Levodopa (Carbidopa-Levo ER 50-200 Tab) 1 Each Tablet.er, 1 EACH PO 0600,1800, (Reported) Entered as Reported by: JULITO HAJI on 06/05/21 08 Last Action: Reviewed Carboxymethylcellulose Sodium (Refresh Contacts) 12 Ml Drops, 1 DROP OU DAILY, (Reported) Entered as Reported by: SOFÍA CHICAS on 07/04/21940 Last Action: Reviewed Cetirizine HCl (Cetirizine HCl) 10 Mg Tablet, 10 MG PO DAILY, (Reported) Entered as Reported by: JULTIO HAJI on 06/05/21835 Last Action: Reviewed Cholecalciferol (Vitamin D3) (Vitamin D3) 125 Mcg Tablet, 125 MCG PO DAILY, (Reported) Entered as Reported by: NICK PEOPLES on 04/06/20 0951 Last Action: Reviewed Divalproex Sodium (Divalproex Sodium) 250 Mg Tablet.dr, 250 MG PO 0600,1800, (Reported) Entered as Reported by: KIKA SEWELL on 03/03/18 1556 Last Action: Reviewed Ferrous Sulfate (Ferrous Sulfate) 325 Mg Tablet, 325 MG PO DAILY, (Reported) Entered as Reported by: SOFÍA CHICAS on 07/04/21940 Last Action: Reviewed Furosemide (Furosemide) 40 Mg Tablet, 40 MG PO Q48H, (Reported) Entered as Reported by: JULITO HAJI on 06/05/2139 Last Action: Reviewed Metoprolol Succinate (Metoprolol Succinate) 25 Mg Tab.er.24h, 25 MG PO 1600, (Reported) Entered as Reported by: NICK PEOPLES on 04/06/20950 Last Action: Reviewed Ondansetron HCl (Ondansetron HCl) 4 Mg Tablet, 4 MG PO Q4H PRN for NAUSEA/VOMITING-1ST LINE, (Reported) Entered as Reported by: SOFÍA CHICAS on 07/04/21940 Last Action: Reviewed Pantoprazole Sodium (Pantoprazole Sodium) 40 Mg Tablet.dr, 40 MG PO 0600,1800, (Reported) Entered as Reported by: KIKA SEWELL on 03/03/181555 Last Action: Reviewed Potassium Chloride (Potassium Chloride) 10 Meq Capsule.er, 10 MEQ PO 0600,1800, (Reported) Entered as Reported by: JULITO HAJI on 06/05/21834 Last Action: Reviewed Sennosides/Docusate Sodium (Senna S Tablet) 1 Each Tablet, 1 EACH PO 0600,1800, (Reported) Entered as Reported by: SOFÍA CHICAS on 07/04/21940 Last Action: Reviewed Sertraline HCl (Sertraline HCl) 25 Mg Tablet, 25 MG PO 1800, (Reported) Entered as Reported by: KIKA SEWELL on 03/03/18 1611 Last Action: Reviewed Tamsulosin HCl (Flomax) 0.4 Mg Cap, 0.4 MG PO 1800, (Reported) Entered as Reported by: NICK PEOPLES on 04/06/20950 Last Action: Reviewed Tramadol HCl (Tramadol HCl) 50 Mg Tablet, 50 MG PO Q6H PRN for PAIN-MODERATE (5- 7), (Reported) Entered as Reported by: SOFÍA CHICAS on 07/04/21940 Last Action: Reviewed Discontinued Medications Acetaminophen (Acetaminophen) 325 Mg Tablet, 650 MG PO Q4H PRN for PAIN-MILD (1- 4) Discontinued Reason: No Longer Taking Prescribed by: NAPOLEON SNEED on 06/09/21 105 Last Action: Discontinued Ferrous Sulfate, Dried (Ferrous Sulfate) 500 Gm Powder, 500 GM MC DAILY Discontinued Reason: Duplicate Order Prescribed by: NAPOLEON SNEED on 06/09/21 1058 Last Action: Discontinued Polyvinyl Alcohol/Povidone/Pf (Refresh Classic Eye Drops) 1 Each Droperette, 1 EACH OP DAILY PRN for DRY EYES, (Reported) Discontinued Reason: Duplicate Order Entered as Reported by: JULITO HAJI on 06/05/21 0837 Last Action: Discontinued Sennosides (Senokot) 8.6 Mg Tablet, 8.6 MG PO BID Discontinued Reason: Duplicate Order Prescribed by: NAPOLEON SNEED on 06/09/211057 Last Action: Discontinued Tramadol HCl (Tramadol HCl) 50 Mg Tablet, 50 MG PO QID PRN for PAIN-MODERATE (5- 7) Discontinued Reason: Duplicate Order Prescribed by: NAPOLEON SNEED on 06/09/21 1100 Last Action: Discontinued Review of Systems Review of Systems Constitutional: No chills, No diaphoresis, No fever EENTM: No ear discharge, No ear pain Respiratory: cough, short of breath Cardiovascular: No chest pain, No palpitations Gastrointestinal: No abdominal pain, No constipation, No diarrhea Musculoskeletal: No back pain, No joint pain Skin: No pruritus, No rash Psychiatric/Neurological: Denies Headache, Denies Numbness Hematologic/Lymphatic: Anemia; Denies Blood Clots All Other Systems Reviewed Negative Unless Noted: Yes Past Mpdjsgp-Dnbcww-Soougz Hx Patient Social History Tobacco Use?: No Use of E-Cig and/or Vaping dev: No Substance use?: No Immunizations Up To Date Tetanus Booster (TDap): Unknown First/Initial COVID19 Vaccinat: 2020 Second COVID19 Vaccination Steven: 2020 Third COVID19 Vaccination Date: 2020 Seasonal Allergies Seasonal Allergies: No Past Medical History Surgery/Hospitalization HX: N/A Surgeries: Yes Abdominal, Amputation, Eye Surgery, Joint Replacement, Orthopedic, Pacemaker Respiratory: Yes Asthma Currently Using CPAP: No Currently Using BIPAP: No Cardiac: Yes (PACEMAKER; ATRIAL CLIP PROCEDURE) Hypertension Neurological: Yes (CVA WITH LEFT SIDE WEAKNESS, DYSPHAGIA, AND POOR COORDINATION) Parkinson's Disease, Stroke Reproductive Disorders: No Sexually Transmitted Disease: No HIV/AIDS: No Genitourinary: Yes Benign Prostatic Hyperpl, Prostate Problems, Kidney Stones Gastrointestinal: Yes (LACTOSE INTOLERANT; HIATAL AND UMBILICAL HERNIA REPAIRS) Abdominal Hernia, Chronic Constipation, Hiatal Hernia, Ulcer Musculoskeletal: Yes Degenerate Disk Disease, Arthritis, Chronic Back Pain, Fractures Endocrine: No HEENT: Yes (DYSPHAGIA FROM CVA; CATARACTS/LENS IMPLANTS) Cataract Hearing Impairment: Denies Cancer: No 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) Depression Integumentary: Yes (RASH IN SUMMER AT TIMES) Pruritis Blood Disorders: No Adverse Reaction/Blood Tranf: No Family Medical History Cancer G8 BROTHER G8 BROTHER G8 SISTER Cancer of colon G8 BROTHER Cataract 19 FATHER Congestive heart failure 19 FATHER Family history: Allergy DAUGHTER Family history: Alzheimer's disease 19 FATHER Family history: Breast disease G8 SISTER No Family History of: Abdominal aortic aneurysm [place]'s disease Alcoholism Aphasia Chest pain Congenital heart disease Cystic fibrosis Dementia Dysphagia Family history: Arthritis Family history: Asthma Family history: Cardiovascular disease Family history: Coronary thrombosis Family history: Diabetes mellitus Family history: Gastrointestinal disease Family history: Glaucoma Family history: Hypertension Family history: Osteoporosis Family history: Thyroid disorder Headache Hearing loss Heart disease Hereditary disease History of - anemia History of - disorder History of - respiratory disease History of drug abuse Human immunodeficiency virus (HIV) seropositivity Hypercholesterolemia Infertile Kidney disease Malignant neoplasm of lung Myocardial infarction Parkinson's disease Prostate cancer Psychotic disorder Seizure disorder Stroke Tuberculosis Visual impairment Physical Exam Vital Signs - First Documented 07/03/21 07/03/21 07/03/21 07/03/21 13:55 14:10 14:36 14:55 Temp 35.7 Pulse 115 Resp 18 B/P (MAP) 131/106 Pulse Ox 75 O2 Delivery NIV CPAP O2 Flow Rate 15.00 FiO2 100 Capillary Refill : Less Than 3 Seconds Height: 5'4.00" Weight: 166lbs. 3.0oz. [id number]; 31.00 BMI Method:Stated General Appearance: severe distress, thin Eyes: Bilateral Eye Normal Inspection, Bilateral Eye PERRL, Bilateral Eye EOMI HEENT: PERRL/EOMI; No pharynx normal (Dry oral mucosa) Neck: full range of motion, supple, normal inspection Respiratory: respiratory distress (Severe oxygen saturations in the mid upper 80s on CPAP 100% FiO2. Respiratory rate panting 35-40, wearing out, pursed lip breathing), decreased breath sounds (Left side lungs and audible, severely decreased) Cardiovascular: normal peripheral pulses, regular rate, rhythm Gastrointestinal: normal bowel sounds, non tender, soft Extremities: normal inspection, no pedal edema, normal capillary refill Neurologic/Psychiatric: alert, normal mood/affect, oriented x 3 Skin: normal color, cyanosis (Acrocyanosis, perioral cyanosis), diaphoresis, damp Focused Exam Sepsis Stage: Septic Shock Possible Source: Pulmonary Lactate Level Time of Focused Exam: 15:58 Respiratory: Lungs Clear, Rales (few) Cardiovascular: Regular Rate, Rhythm, Normal Peripheral Pulses Capillary Refill: Greater Than 3 Seconds Peripheral Pulses: 2+ Radial Pulses (R), 2+ Radial Pulses (L) Skin: normal color, warm/dry Lactic Acid Level Laboratory Tests Test 07/03/21 15:06 Lactic Acid Level 3.14 MMOL/L (0.50-2.00) *H Within 3hrs of presentation: Admin fluids, Admin ABX, Blood cultures prior to ABX's, Focus exam, Lactate level Procedures/Interventions Lumen: triple Central Line Procedure: betadine prep (Chlorhexidine), sterile drapes applied, sterile dressing applied Position: internal jugular (R) Anesthesia: Lidocaine Volume Anesthetic (ccs): 2 Complications: none Post Position: sutured, good blood return, position confirmed w/ CXR Because of the patient's orotracheal intubation and his blood pressure 80/50 emergency consent was assumed. The patient did consent earlier to being intubated so we could save his life. The patient was positioned in the usual format and using the usual sterile garments and drapes the patient was dressed out. The skin was thoroughly cleaned with the supplied chlorhexidine prep. After the prep had dried a sterile drape was placed. The 15 cm 7 [place] triple-lumen catheter was flushed with sterile saline. We used ultrasound guidance to pass the introducer needle into the right internal jugular without difficulty. A guidewire was placed easily without difficulty. No ectopy was seen on the monitor. The supplied 11 blade scalpel was used to make a 2 mm incision at the inferior portion of the introducer needle. The introducer needle was replaced with the dilator. The dilator was taken out and the patient had the central lumen of the triple lumen catheter threaded over the guidewire and placed at 13 cm. The guidewire was removed and the triple-lumen catheter was stitched in place using the supplied braided stitch at 2 different points. The catheter withdrew blood and flushed easily. A sterile dressing was placed over the catheter. The patient tolerated the procedure well. A chest x-ray was obtained that demonstrated no pneumothorax and a new interval central catheter over the shadow of the right internal jugular down the superior vena cava and terminating just proximal to the right atria. Chest Tube : Chest Tube Position: Left Upper Chest Tube Location: Mid-Clavicular Chest Size of E[place]an Tube (cm): 13 Chest Tube Procedure: betadine prep (Chlorhexidine), sterile drapes applied, sterile dressing applied Thacker of Air Toombs: No Number of Attempts: 1 Time of Successful Intubation: 14:34 Tube Drainage: 60 cc air Tube Sutured to Skin: No Post Procedure CXR?: Yes Progress Good placement on chest x-ray without evidence of worsening pneumothorax Reason for Intubation: Respiratory failure Date of ETT Placement: Jul 03, 2021 Time of ETT Placement: 14:02 Tube Size: 8.00 Medications: Etomidate (20 mg), Rocuronium (50 mg) Positive End Tide CO2: Yes (Color change on the capnography paper) Intubation Complications: other (We were not able to obtain a useful oxygen saturation but the patient was cyanotic before we began.) Post Intubation Xray: Yes ETT 2 cm above the yamini. Progress/Results/Core Measures Suspected Sepsis SIRS Temperature: Pulse: 107 Respiratory Rate: 32 Blood Pressure 107 /74 Mean: 85 Laboratory Tests 07/03/21 15:06: INR Comment 1.3, Total Bilirubin 2.0H Results/Orders Lab Results Laboratory Tests Test 07/03/21 14:00 07/03/21 14:15 07/03/21 14:35 07/03/21 15:06 Range/Units White Blood Count 20.4 H 4.3-11.0 10^3/uL Red Blood Count 4.97 4.30-5.52 10^6/uL Hemoglobin 18.0 H 13.3-17.7 g/dL Hematocrit 58 H 40-54 % Mean Corpuscular Volume 117 H 80-99 fL Mean Corpuscular Hemoglobin 36 H 25-34 pg Mean Corpuscular Hemoglobin Concent 31 L 32-36 g/dL Red Cell Distribution Width 15.9 H 10.0-14.5 % Platelet Count 137 130-400 10^3/uL Mean Platelet Volume 12.6 H 9.0-12.2 fL Immature Granulocyte % (Auto) 1 % Neutrophils (%) (Auto) 80 H 42-75 % Lymphocytes (%) (Auto) 10 L 12-44 % Monocytes (%) (Auto) 10 0-12 % Eosinophils (%) (Auto) 0 0-10 % Basophils (%) (Auto) 0 0-10 % Neutrophils # (Auto) 16.2 H 1.8-7.8 10^3/uL Lymphocytes # (Auto) 1.9 1.0-4.0 10^3/uL Monocytes # (Auto) 2.0 H 0.0-1.0 10^3/uL Eosinophils # (Auto) 0.0 0.0-0.3 10^3/uL Basophils # (Auto) 0.1 0.0-0.1 10^3/uL Immature Granulocyte # (Auto) 0.2 H 0.0-0.1 10^3/uL Neutrophils % (Manual) 85 % Lymphocytes % (Manual) 9 % Monocytes % (Manual) 6 % Blood Morphology Comment NORMAL Urine Color YELLOW Urine Clarity CLEAR Urine pH 5.0 5-9 Urine Specific [place] 1.025 H 1.016-1.022 Urine Protein NEGATIVE NEGATIVE Urine Glucose (UA) NEGATIVE NEGATIVE Urine Ketones TRACE H NEGATIVE Urine Nitrite NEGATIVE NEGATIVE Urine Bilirubin 1+ H NEGATIVE Urine Urobilinogen 1.0 < = 1.0 MG/DL Urine Leukocyte Esterase NEGATIVE NEGATIVE Urine RBC (Auto) NEGATIVE NEGATIVE Urine RBC NONE /HPF Urine WBC NONE /HPF Urine Squamous Epithelial Cells NONE /HPF Urine Crystals NONE /LPF Urine Bacteria NEGATIVE /HPF Urine Casts NONE /LPF Urine Mucus NEGATIVE /LPF Urine Culture Indicated NO Blood Gas Puncture Site RT RAD Blood Gas Patient Temperature 35.2 Arterial Blood pH 7.38 7.37-7.43 Arterial Blood Partial Pressure CO2 35 35-45 MMHG Arterial Blood Partial Pressure O2 304 H 79-93 MMHG Arterial Blood HCO3 21 L 23-27 MMOL/L Arterial Blood Total CO2 21.9 21.0-31.0 MMOL/L Arterial Blood Oxygen Saturation 100 94-100 % Arterial Blood Base Excess -3.9 L -2.5-2.5 MMOL/L Bharath Test YES-POS Blood Gas Ventilator Setting YES Blood Gas Inspired Oxygen 100% Prothrombin Time 16.2 H 12.2-14.7 SEC INR Comment 1.3 0.8-1.4 Activated Partial Thromboplast Time 25 24-35 SEC D-Dimer 2.70 H 0.00-0.49 UG/ML Sodium Level 154 H 135-145 MMOL/L Potassium Level 4.4 3.6-5.0 MMOL/L Chloride Level 114 H 98-107 MMOL/L Carbon Dioxide Level 22 21-32 MMOL/L Anion Gap 18 H 5-14 MMOL/L Blood Urea Nitrogen 58 H 7-18 MG/DL Creatinine 2.34 H 0.60-1.30 MG/DL Estimat Glomerular Filtration Rate 27 BUN/Creatinine Ratio 25 Glucose Level 162 H 70-105 MG/DL Lactic Acid Level 3.14 *H 0.50-2.00 MMOL/L Calcium Level 9.8 8.5-10.1 MG/DL Corrected Calcium 9.9 8.5-10.1 MG/DL Magnesium Level 2.8 H 1.6-2.4 MG/DL Total Bilirubin 2.0 H 0.1-1.0 MG/DL Aspartate Amino Transf (AST/SGOT) 14 5-34 U/L Alanine Aminotransferase (ALT/SGPT) < 6 0-55 U/L Alkaline Phosphatase 116 40-136 U/L Troponin I 0.038 H <0.028 NG/ML C-Reactive Protein High Sensitivity 0.08 0.00-0.50 MG/DL Total Protein 7.4 6.4-8.2 GM/DL Albumin 3.9 3.2-4.5 GM/DL Triglycerides Level 167 H <150 MG/DL Procalcitonin 0.15 H <0.10 NG/ML Test 07/03/21 15:17 Range/Units Influenza Type A (RT-PCR) Not Detected Not Detecte Influenza Type B (RT-PCR) Not Detected Not Detecte SARS-CoV-2 RNA (RT-PCR) Not Detected Not Detecte Micro Results Microbiology 07/03/21 Blood Culture - Preliminary, Resulted No growth 07/03/21 Urine Culture - Final, Complete 3 or more isolates 07/03/21 Blood Culture - Final, Complete Staphylococcus hominis Staphylococcus epidermidis My Orders Orders - SUDHA GONZALEZ Cbc With Automated Diff (07/03/21 14:23) Comprehensive Metabolic Panel (07/03/21 14:23) Blood Culture (07/03/21 14:23) Urinalysis (07/03/21 14:23) Urine Culture (07/03/21 14:23) Protime With Inr (07/03/21 14:23) Partial Thromboplastin Time (07/03/21 14:23) Chest 1 View, Ap/Pa Only (07/03/21 14:23) Ed Iv/Invasive Line Start (07/03/21 14:23) Ed Iv/Invasive Line Start (07/03/21 14:23) Ekg Tracing (07/03/21 14:23) Troponin I (07/03/21 14:23) Vital Signs Adult Sepsis Patie Q15M (07/03/21 14:23) O2 (07/03/21 14:23) Remove Rings In Anticipation O (07/03/21 14:23) Lactic Acid Analyzer (07/03/21 14:23) Influenza A And B By Pcr (07/03/21 14:23) Ns Iv 1000 Ml (Sodium Chloride 0.9%) (07/03/21 14:30) Cefepime Injection (Maxipime Injection) (07/03/21 14:30) Vancomycin Injection (Vancomycin Injecti (07/03/21 14:30) Propofol Drip (Icu) (Diprivan Drip (Icu) (07/03/21 14:30) Manual Differential (07/03/21 14:00) Arterial Blood Gas (07/03/21 14:33) Norepinephrine 8 Mg/250 Ml (Norepinephri (07/03/21 14:33) Chest 1 View, Ap/Pa Only (07/03/21 15:02) Covid 19 Inhouse Test (07/03/21 14:25) Magnesium (07/03/21 15:20) Procalcitonin (Pct) (07/03/21 15:20) Fibrin Degradation Products (07/03/21 15:20) Hs C Reactive Protein (07/03/21 15:20) Medications Given in ED Vital Signs/I&O 07/03/21 07/03/21 07/03/21 07/03/21 13:55 14:10 14:36 14:46 Pulse 115 76 Resp 18 B/P (MAP) 131/106 80/65 Pulse Ox 75 O2 Delivery NIV CPAP O2 Flow Rate 15.00 FiO2 100 07/03/21 14:55 Temp 35.7 Pulse 107 Resp 32 B/P (MAP) 107/74 (85) Capillary Refill : Less Than 3 Seconds Blood Pressure Mean: 85 Progress Note : Time: 15:55 Progress Note Differential includes pulmonary embolism since he is off anticoagulation status post right hip replacement. Aspiration pneumonia is also possible. Plan to get a CT angiogram of his chest if he can tolerate it on his way to the ICU. Blood pressure is significantly improved 103/74 on 0.1 mcg/kg/min of Levophed. Temperature has improved to 35.6 C. Oxygen saturations are 96% after he reduced his FiO2 to 50% in response to his initial PaO2 of 300 mmHg. We will obtain another ABG. Septic work-up was initiated for possible aspiration pneumonia including cefepime and vancomycin. 2 L is approximately 30 mL/kg. ECG Initial ECG Impression Date: Jul 03, 2021 Initial ECG Impression Time: 14:42 Initial ECG Rate: 480 Initial ECG Intervals: QT (480) Initial ECG Impression: Nonspecific Changes Initial ECG Comparisson: Unchanged Comment AV dual paced complexes with no clinically relevant ST elevation or depression. Borderline prolonged QTC. Diagnostic Imaging Diagonstic Imaging: Xray Plain Films/CT/US/NM/MRI: chest Comments [facility], [place] NAME: LUCILLESALUD Miguelito [facility] REC#: [id number] PT STATUS: REG ER : 1935 PHYSICIAN: SUDHA GONZALEZ MD ADMIT DATE: 07/03/21/ER Draft Date of Exam:07/03/21 CHEST 1 VIEW, AP/PA ONLY INDICATION: Status post intubation. Respiratory failure. COMPARISON: 06/09/2021. FINDINGS: A single frontal radiographic view of the chest was obtained. The endotracheal tube is now identified with the tip below the clavicular heads and above the yamini. A gastric tube is also seen and projects over the left heart. There is asymmetric elevation of the left hemidiaphragm and left basilar airspace opacities. The right lung is relatively clear. A small effusion cannot be excluded. There is no pneumothorax on either side. The cardiac silhouette is also partially obscured. The pulmonary vasculature is within normal limits. A left-sided dual lead pacemaker is present. IMPRESSION: 1. Lines and tubes as above. 2. Persistent asymmetric elevation of the left hemidiaphragm with probable left basilar atelectasis. Superimposed infiltrate could not be entirely excluded. Dictated on workstation # [id number] Dict: 07/03/21 1432 Trans: 07/03/21 1436 [id number] Interpreted by: NAY DUPREE MD Electronically signed by: Reviewed: Reviewed by Me Diagonstic Imaging: Xray Plain Films/CT/US/NM/MRI: chest Comments [facility], [place] NAME: SALUD ADKINS [facility] REC#: [id number] PT STATUS: REG ER : 1935 PHYSICIAN: SUDHA GONZALEZ MD ADMIT DATE: 07/03/21/ER Draft Date of Exam:07/03/21 CHEST 1 VIEW, AP/PA ONLY INDICATION: Central line placement. COMPARISON: This study is correlated with the exam from earlier this same day. FINDINGS: The right IJ catheter tip projects over the SVC. The ET tube tip is in the lower thoracic trachea. The OG catheter is within the thoracic stomach in the left lower chest. There is either a diaphragmatic defect or elevation which can be seen on a remote CT T-spine performed in 2018. There is some perihilar congestion and likely central edema versus infectious sequela. There is a left-sided skinfold artifact. IMPRESSION: There is an OG catheter within the intrathoracic stomach. The ET tube is in the lower trachea. The right IJ is at the SVC. No pneumothorax with perihilar infiltrates or edema noted. Dictated on workstation # [id number] Dict: 07/03/21 1527 Trans: 07/03/21 1532 [id number] Interpreted by: JEANETTE RODAS Electronically signed by: Reviewed: Reviewed by Me Critical Care Note Critical Care Start Time: 13:55 Stop Time: 15:30 Total Time (minutes) 95 min Progress 1355: EMS arrival while on CPAP FiO2 100% and a liter of fluids going. 125 mg Solu-Medrol given by EMS on route. Discussed with the patient that he would need to be intubated in order to survive this as he was quickly wearing out. Patient said okay he nodded his head yes. He was noted to be a DNR. Preoxygenation using Ambi mask at flush and positioning was performed. Team was already assembled including nursing staff, RT, tech, boiler house supervisor. 1359: etomidate 20 mg given. 1400: Rocuronium 50 mg administered IV. Temperature 30.1. See intubation note. 1404: Diminished on left side pulled back 2 cm. Still diminished. Decision to put a chest tube in made. Consideration given for spontaneous pneumothorax versus aspiration. 1406: OG tube placed by this provider. 1412: Mclaughlin catheter placed. 1414: IV fluids second liter initiated. 1420: rectal temp 35.7. 1424: Chest x-ray and a bear hugger ordered/placed. 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 1429 ABG obtained. [address] 1434 propofol drip decreased to 20 in response to blood pressure 80/40. 1440: Temperature 33.4. 1442: EKG 1446: Levophed started at 0.1 mcg/kg/h and blood pressure significantly improved. 1450 patient out of Trendelenburg and central line initiated. 1515 repeat chest x-ray for central line placement. Patient's pressure 107/70. 1530: Discussed the case with Bette, daughter and DEMI Departure Communication (Admissions) Time/Spoke to Admitting Phy: 16:00 Discussed the case with Dr. Sneed and she agrees with consultation to eICU. She agrees with anticoagulation and broad-spectrum antibiotics. She agrees with placement in the ICU as inpatient admission Time/Spoke to Consulting Phy: 16:10 Discussed the case with Britt Carson and she agrees with heparin drip, broad- spectrum antibiotics. She feels her pulmonary embolism is likely. She agrees to consult in the case Impression Primary Impression: Acute respiratory failure Qualified Codes: J96.01 - Acute respiratory failure with hypoxia Additional Impressions: Aspiration pneumonia Qualified Codes: J69.0 - Pneumonitis due to inhalation of food and vomit Septic shock Disposition: ADMITTED INPATIENT Condition: Stable Admissions Decision to Admit Reason: Admit from ER (General) Decision to Admit/Date: Jul 03, 2021 Time/Decision to Admit Time: 15:00 Departure-Patient Inst. Referrals: NAPOLEON SNEED DO (PCP/Family) Primary Care Physician SUDHA GONZALEZ Jul 03, 2021 15:09
--- NOTE | 2021-07-03 15:33 | Diagnostic Imaging Report ---
INDICATION: Central line placement. COMPARISON: This study is correlated with the exam from earlier this same day. FINDINGS: The right IJ catheter tip projects over the SVC. The ET tube tip is in the lower thoracic trachea. The OG catheter is within the thoracic stomach in the left lower chest. There is either a diaphragmatic defect or elevation which can be seen on a remote CT T-spine performed in 2018. There is some perihilar congestion and likely central edema versus infectious sequela. There is a left-sided skinfold artifact. IMPRESSION: There is an OG catheter within the intrathoracic stomach. The ET tube is in the lower trachea. The right IJ is at the SVC. No pneumothorax with perihilar infiltrates or edema noted. Dictated by: Dictated on workstation # [id number]
[2021-07-03 15:41] LABS: INR 1.3 (0.8-1.4); PROTHROMBIN TIME PATIENT 16.2 SEC (12.2-14.7)
[2021-07-03 15:42] LABS: ALBUMIN 3.9 GM/DL (3.2-4.5)
[2021-07-03 15:43] LABS: CHLORIDE 114 MMOL/L (98-107); POTASSIUM 4.4 MMOL/L (3.6-5.0); SODIUM 154 MMOL/L (135-145)
[2021-07-03 15:44] LABS: CALCIUM 9.8 MG/DL (8.5-10.1)
[2021-07-03 15:45] LABS: GLUCOSE 162 MG/DL (70-105); TOTAL PROTEIN 7.4 GM/DL (6.4-8.2)
[2021-07-03 15:46] LABS: CARBON DIOXIDE 22 MMOL/L (21-32)
[2021-07-03 15:48] LABS: ALKALINE PHOSPHATASE 116 U/L (40-136)
[2021-07-03 15:49] LABS: CREATININE SERUM 2.34 MG/DL (0.60-1.30); GFR ESTIMATED 27
[2021-07-03 15:50] LABS: BUN/CREATININE RATIO 25
[2021-07-03 15:52] LABS: ALANINE AMINOTRANSFERASE < 6 U/L (0-55); MAGNESIUM 2.8 MG/DL (1.6-2.4)
[2021-07-03] MEDS ORDERED: VANCOMYCIN 1500 MG/NS 500 ML IVPB IV NR ×2 (16:30)
[2021-07-03] MEDS ORDERED: EPINEPHrine 1 MG INJECTION 4 MG in NS (IVPB) 248 ML IV SCH (17:15)
[2021-07-03] MEDS ORDERED: LACTATED RINGERS 1,000 ML IV SCH (17:15)
[2021-07-03] MEDS ORDERED: ONDANSETRON 4 MG/2 ML (SDV) Z0FRAN IV PRN (17:15)
--- NOTE | 2021-07-03 17:29 | Tele-ICU Consult ---
History of Present Illness History of Present Illness Date Seen by Provider: Jul 03, 2021 Time Seen by Provider: 17:27 Date of Admission Allergies and Home Medications Allergies Coded Allergies: Cobamamide (Unverified Allergy, Unknown, MEMORY LOSS, 01/18/14) cyanocobalamin (Unverified Allergy, Unknown, MEMORY LOSS, 01/18/14) fentanyl (Verified Allergy, Unknown, 12/08/15) lactose (Verified Allergy, Unknown, 03/03/18) morphine (Verified Allergy, Unknown, Pt has received tramadol in the past, 06/06/21) codeine (Unverified Adverse Reaction, Mild, SICK, 08/23/15) promethazine HCl (Unverified Adverse Reaction, Mild, LOSS OF MEMORY, 04/12/11) hydrocodone (Verified Adverse Reaction, Unknown, 12/08/15) low blood pressure Uncoded Allergies: narcotics (Adverse Reaction, Unknown, 12/08/15) Home Medications Acetaminophen 325 Mg Tablet, 650 MG PO Q4H PRN for PAIN-MILD (1-4) Prescribed by: NAPOLEON AKHTAR on 06/09/21 1058 Aspirin 81 Mg Tablet.dr, 81 MG PO HS, (Reported) Bethanechol Chloride 50 Mg Tablet, 50 MG PO BID, (Reported) Carbidopa/Levodopa 1 Each Tablet.er, 1 EACH PO BID, (Reported) Cetirizine HCl 10 Mg Tablet, 10 MG PO DAILY, (Reported) Cholecalciferol (Vitamin D3) 125 Mcg Tablet, 125 MCG PO DAILY, (Reported) Divalproex Sodium 250 Mg Tablet.dr, 250 MG PO BID, (Reported) Ferrous Sulfate, Dried 500 Gm Powder, 500 GM MC DAILY Prescribed by: NAPOLEON AKHTAR on 06/09/21 1058 Furosemide 40 Mg Tablet, 40 MG PO Q48H, (Reported) Metoprolol Succinate 25 Mg Tab.er.24h, 25 MG PO HS, (Reported) Pantoprazole Sodium 40 Mg Tablet.dr, 40 MG PO HS, (Reported) Polyvinyl Alcohol/Povidone/Pf 1 Each Droperette, 1 EACH OP DAILY PRN for DRY EYES, (Reported) Potassium Chloride 10 Meq Capsule.er, 10 MEQ PO BID, (Reported) Sennosides 8.6 Mg Tablet, 8.6 MG PO BID Prescribed by: NAPOLEON AKHTAR on 06/09/21 1058 Sertraline HCl 25 Mg Tablet, 25 MG PO HS, (Reported) Tamsulosin HCl 0.4 Mg Cap, 0.4 MG PO 1800, (Reported) Tramadol HCl 50 Mg Tablet, 50 MG PO QID PRN for PAIN-MODERATE (5-7) Prescribed by: NAPOLEON Chance HERMILO on 06/09/21 1100 Past Medical/Social/Family Hx Patient Social History Tobacco Use?: No Smoking Status: Unknown if Ever Smoked Use of E-Cig and/or Vaping dev: No Substance use?: No Alcohol Use?: Unable to obtain Pt stated abuse/neglect: No Immunizations Up To Date First/Initial COVID19 Vaccinat: 2020 Second COVID19 Vaccination Steven: 2020 Tetanus Booster (TDap): Unknown Hepatitis A: No Hepatitis B: No TB Skin Test: None Date of Pneumonia Vaccine: May 17, 2019 Current Status Advance Directives: No Communicates: Verbally Primary Language: Kyrgyz Preferred Spoken Language: Kyrgyz Is interpretation needed?: No Implanted or Applied Medical D: Orthopedic hardware, Pacemaker Review of Systems Constitutional: see HPI Sepsis Event Evaluation Sepsis Stage: Septic Shock Possible Source: Other Height, Weight, BMI Height: 5'4.00" Weight: 166lbs. 3.0oz. 70.811080vb; 31.00 BMI Method:Stated Bedside Monitoring Date besdie monitoring occurre: Jul 03, 2021 Exam Exam Patient acknowledged, consented, and participated in this virtual visit which was conducted using real time audio/video Vital Signs Date Time Temp Pulse Resp B/P (MAP) Pulse Ox O2 Delivery O2 Flow Rate FiO2 07/03/21 17:07 91 18 100 100 07/03/21 16:31 35.9 82 17 99/73 96 Mechanical Ventilator 15.00 15.00 07/03/21 14:55 35.7 107 32 107/74 (85) 07/03/21 14:46 76 80/65 07/03/21 14:36 18 100 07/03/21 14:10 115 131/106 07/03/21 13:55 75 NIV CPAP 15.00 Height & Weight Height: 5'4.00" Weight: 166lbs. 3.0oz. 70.433061av; 31.00 BMI Method:Stated General Appearance: Other Respiratory: Lungs Clear, Rales (few) Cardiovascular: Regular Rate, Rhythm, Normal Peripheral Pulses Capillary Refill: Greater Than 3 Seconds Peripheral Pulses: 2+ Radial Pulses (R), 2+ Radial Pulses (L) Gastrointestinal: normal bowel sounds, non tender, soft Results Lab Laboratory Tests 07/03/21 14:00 07/03/21 15:06 Assessment/Plan Assessment/Plan Tele-ICU Physician , consultation) Available chart/ vitals / labs / Images reviewed H&P is from ER notes Patient's information available about PMH, Shx, Fhx allergy reviewed in EMR. ROS as per chart and RN report Now in ICU, hemodynamically stable on levo , FOLLOWS COMMANDS Video assessment done using teleICU camera, rest of exam as per RN Discussed with RN. Sedation gtt: ( RASS ) VENT SETTINGS and ABG reviewed Not candidate for SBT today REVIEWED Cardiovascular Stability / Sedation Score / FI02/PEEP / ABG / CXR Consultants: Hospital course: -07/03- acute resp distress- intubated in ER, Thoravent LEFT in ER 07/03 for ansence of air entry on left A/P Acute respiratory failure , hypoxic- - etiology is not clear - ? aspiration , ? PE ( off AC - s/p hip sxm + h/o PE in past - seen on CTA 2016, has been on lovenox for DVT prophylaxis in rechab? , elv ddimer to 2.7 ) , ? seizure , pain meds ? -Intubated 07/03 -Full vent support, follow ABG and serial CXR - start on empiric heparin gtt - will confirm with daughter if there is contraindications for AC - ? ICB/ hemorrahic CVA in past , will check ECHO - strt ABX - follow shock- ? etiology - possible Infection - ? aspiration - ? PE --check ECHO - cont fluid resucitation - cont pressors S/p Thoravent LEFT in ER 07/03 for ansence of air entry on left - PTX was presumed , but exam can be explaind by chronicly paralised left enmanuel diapfragm - follow , keep thoravent in place today LUZ MARINA - with elevated NA and Hb - most likely dehydration , prerenal - cont hydration Leukocytosis - cont empiric abx - cx pending A fib , chronic , s/p pacemaker - off AC with reported hematoma / bleed post op - as per chart : mbolic stroke and hemorrhagic stroke, unable to tolerate oral anticoagulation Recent Right hip fracture - s/p sx June 05, 2021 History of seizure disorder as per notes - on valproic acid PO - 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 Discussed with RN to reach out if any questions or concerns A total of 40 minutes of critical care time was devoted to this patient today, required to treat and/or prevent further deterioration of critical care condition ( as above ) . JENNA HERRERA MD Jul 03, 2021 17:29
[2021-07-03] MEDS ORDERED: PIPERACILLIN/TAZO 4.5 GM/NS 100 ML IV NR ×2 (17:30)
[2021-07-03] MEDS ORDERED: HEParin DRIP 25000 UNIT/500ML 500 ML IV SCH (17:30)
[2021-07-03] MEDS ORDERED: HEParin 1000 UNIT/ML (10ML VIAL) FOR BOLUS IV SCH (17:30)
[2021-07-03] MEDS: LACTATED RINGERS 1,000 ML IV SCH ×2 (17:35→21:34)
[2021-07-03] MEDS: VASOPRESSIN INJECTION 20 UNIT in NS (IVPB) 100 ML IV SCH (17:36)
[2021-07-03] MEDS: NOREPINEPHRINE 8 MG/250 ML 250 ML IV SCH (17:36)
[2021-07-03 18:36] LABS: ABG BASE EXCESS -5.7 MMOL/L (-2.5-2.5); ABG OXYGEN SATURATION 100 % (94-100); ABG PCO2 32 MMHG (35-45); ABG PH 7.38 (7.37-7.43); ABG PO2 361 MMHG (79-93); ABG TCO2 19.4 MMOL/L (21.0-31.0); VENTILATOR YES
[2021-07-03 18:39] LABS: INSPIRED O2 100%
[2021-07-03 18:46] LABS: PATIENT TEMP 37.3
[2021-07-03] MEDS: inSUlin ASPART (NovoLOG) 1 UNIT/0.01 ML (CHARGE PER UNIT) SC SCH (19:03)
--- NOTE | 2021-07-03 19:05 | Diagnostic Imaging Report ---
PROCEDURE: US Venous Lower Ext Akira. TECHNIQUE: Multiple real-time grayscale images were obtained over the lower extremities in various projections, bilaterally. Additional duplex Doppler and color Doppler images were also obtained. INDICATION: Edema in the bilateral lower extremities, recent hip surgery. COMPARISON: None FINDINGS: The bilateral common femoral vein, femoral vein, deep femoral vein, and popliteal vein are normal in appearance. These vessels show normal compressibility, color flow and doppler augmentation. The visible deep calf veins demonstrate no distinct intraluminal thrombus, although they are difficult to visualize. IMPRESSION: 1. No sonographic evidence of deep venous thrombosis in the bilateral lower extremities. Dictated by: Dictated on workstation # [id number]
--- NOTE | 2021-07-03 19:18 | History & Physical ---
History of Present Illness History of Present Illness Reason for visit/HPI This is a 85 year old male who was in jail at [facility] for a recent right hip fracture. He had been up to lunch today then asked for assistance to the bathroom. Following his transfers from the toilet and then back to a chair, he was noted to be less responsive with drooling. His vitals were done and he was found to be hypoxic. He was placed on oxygen and his con dition deteriorated so EMS was called. The patient apparently rescinded his DNR and arrived in the emergency room in acute respiratory failure and agreed to intubation. He was in hypovolemic shock and was started on agressive IVFs and IV levophed. A chest tube was also placed due to elevated hemidiaphragm and concern for tension pneumothorax. The patient's labs revealed an elevated WBC count of 20,400 with elevated lactic acid 3.14. COVID as well as Influenza A and B were negative. He has a history of previous stroke as well as choking with eating at times so there is concern for aspiration pneumonia. CXR showed no obvious pneumonia. He is post-op so there is concern for possible PE. He also has a history of seizure disorder so seizure is a consideration as well. At this time he will be admitted to the ICU on the ventilator, covered with broad spectrum antibiotics, pressure support and we will start heparin for prophylaxis for possible PE. His family understands the risk of the bleeding with the heparin and his guarded condition. Date of Admission Jul 03, 2021 at 16:15 Date Seen by a Provider: Jul 03, 2021 Time Seen by a Provider: 19:11 I consulted on this patient on 07/03/21 19:11 Attending Physician Napoleon Sneed DO Admitting Physician Napoleon Sneed DO Consult Allergies and Home Medications Allergies Coded Allergies: Cobamamide (Unverified Allergy, Unknown, MEMORY LOSS, 01/18/14) cyanocobalamin (Unverified Allergy, Unknown, MEMORY LOSS, 01/18/14) fentanyl (Verified Allergy, Unknown, 12/08/15) lactose (Verified Allergy, Unknown, 03/03/18) morphine (Verified Allergy, Unknown, Pt has received tramadol in the past, 06/06/21) codeine (Unverified Adverse Reaction, Mild, SICK, 08/23/15) promethazine HCl (Unverified Adverse Reaction, Mild, LOSS OF MEMORY, 04/12/11) hydrocodone (Verified Adverse Reaction, Unknown, 12/08/15) low blood pressure Uncoded Allergies: narcotics (Adverse Reaction, Unknown, 12/08/15) Patient Home Medication List Home Medication List Reviewed: Yes Acetaminophen (Acetaminophen) 325 Mg Tablet, 650 MG PO Q4H PRN for PAIN-MILD (1- 4) Prescribed by: NAPOLEON SNEED on 06/09/21 1058 Aspirin (Aspirin EC) 81 Mg Tablet.dr, 81 MG PO HS, (Reported) Entered as Reported by: KIKA SEWELL on 03/03/18 1556 Bethanechol Chloride (Bethanechol Chloride) 50 Mg Tablet, 50 MG PO BID, (Reported) Entered as Reported by: JULITO HAJI on 06/05/21 0831 Carbidopa/Levodopa (Carbidopa-Levo ER 50-200 Tab) 1 Each Tablet.er, 1 EACH PO BID, (Reported) Entered as Reported by: JULITO HAJI on 06/05/21 0835 Cetirizine HCl (Cetirizine HCl) 10 Mg Tablet, 10 MG PO DAILY, (Reported) Entered as Reported by: JULITO HAJI on 06/05/21 0836 Cholecalciferol (Vitamin D3) (Vitamin D3) 125 Mcg Tablet, 125 MCG PO DAILY, (Reported) Entered as Reported by: NICK PEOPLES on 04/06/20 0951 Divalproex Sodium (Divalproex Sodium) 250 Mg Tablet.dr, 250 MG PO BID, (Reported) Entered as Reported by: KIKA SEWELL on 03/03/18 1556 Ferrous Sulfate, Dried (Ferrous Sulfate) 500 Gm Powder, 500 GM MC DAILY Prescribed by: NAPOLEON SNEED on 06/09/21 1058 Furosemide (Furosemide) 40 Mg Tablet, 40 MG PO Q48H, (Reported) Entered as Reported by: JULITO HAJI on 06/05/21 0839 Metoprolol Succinate (Metoprolol Succinate) 25 Mg Tab.er.24h, 25 MG PO HS, (Reported) Entered as Reported by: NICK PEOPLES on 04/06/20 0951 Pantoprazole Sodium (Pantoprazole Sodium) 40 Mg Tablet.dr, 40 MG PO HS, (Reported) Entered as Reported by: KIKA SEWELL on 03/03/18 1556 Polyvinyl Alcohol/Povidone/Pf (Refresh Classic Eye Drops) 1 Each Droperette, 1 EACH OP DAILY PRN for DRY EYES, (Reported) Entered as Reported by: JULITO HAJI on 06/05/21 0837 Potassium Chloride (Potassium Chloride) 10 Meq Capsule.er, 10 MEQ PO BID, (Reported) Entered as Reported by: JULITO HAJI on 06/05/21 0835 Sennosides (Senokot) 8.6 Mg Tablet, 8.6 MG PO BID Prescribed by: NAPOLEON SNEED on 06/09/21 1058 Sertraline HCl (Sertraline HCl) 25 Mg Tablet, 25 MG PO HS, (Reported) Entered as Reported by: KIKA SEWELL on 03/03/18 1611 Tamsulosin HCl (Flomax) 0.4 Mg Cap, 0.4 MG PO 1800, (Reported) Entered as Reported by: NICK PEOPLES on 04/06/20 0951 Tramadol HCl (Tramadol HCl) 50 Mg Tablet, 50 MG PO QID PRN for PAIN-MODERATE (5- 7) Prescribed by: NAPOLEON SNEED on 06/09/21 1100 Past Fbslmbt-Mphqqj-Qegktx Hx Patient Social History Tobacco Use?: No Smoking Status: Unknown if Ever Smoked Use of E-Cig and/or Vaping dev: No Substance use?: No Alcohol Use?: Unable to obtain Pt feels they are or have been: No Immunizations Up To Date Date of Influenza Vaccine: May 12, 2019 First/Initial COVID19 Vaccinat: 2020 Second COVID19 Vaccination Steven: 2020 Tetanus Booster (TDap): Unknown Hepatitis A: No Hepatitis B: No Date of Pneumonia Vaccine: May 17, 2019 Seasonal Allergies Seasonal Allergies: No Current Status Advance Directives: No Communicates: Verbally Primary Language: Australian Preferred Spoken Language: Australian Is interpretation needed?: No Implanted or Applied Medical D: Orthopedic hardware, Pacemaker Past Medical History Surgeries: Abdominal, Amputation, Eye Surgery, Joint Replacement, Orthopedic, Pacemaker Asthma Currently Using CPAP: No Currently Using BIPAP: No Hypertension Parkinson's Disease, Stroke Sexually Transmitted Disease: No HIV/AIDS: No Benign Prostatic Hyperpl, Prostate Problems, Kidney Stones Abdominal Hernia, Chronic Constipation, Hiatal Hernia, Ulcer Degenerate Disk Disease, Arthritis, Chronic Back Pain, Fractures Cataract Hearing Impairment: Denies Depression Pruritis Blood Disorders: No Adverse Reaction/Blood Tranf: No Family Medical History Cancer G8 BROTHER G8 BROTHER G8 SISTER Cancer of colon G8 BROTHER Cataract 19 FATHER Congestive heart failure 19 FATHER Family history: Allergy DAUGHTER Family history: Alzheimer's disease 19 FATHER Family history: Breast disease G8 SISTER No Family History of: Abdominal aortic aneurysm Reggie's disease Alcoholism Aphasia Chest pain Congenital heart disease Cystic fibrosis Dementia Dysphagia Family history: Arthritis Family history: Asthma Family history: Cardiovascular disease Family history: Coronary thrombosis Family history: Diabetes mellitus Family history: Gastrointestinal disease Family history: Glaucoma Family history: Hypertension Family history: Osteoporosis Family history: Thyroid disorder Headache Hearing loss Heart disease Hereditary disease History of - anemia History of - disorder History of - respiratory disease History of drug abuse Human immunodeficiency virus (HIV) seropositivity Hypercholesterolemia Infertile Kidney disease Malignant neoplasm of lung Myocardial infarction Parkinson's disease Prostate cancer Psychotic disorder Seizure disorder Stroke Tuberculosis Visual impairment Review of Systems Constitutional: weakness EENTM: No see HPI, No no symptoms reported, No ear discharge, No hearing loss, No ear pain, No blurred vision, No double vision, No eye pain, No tearing, No vision loss, No dental problems, No hoarseness, No mouth pain, No mouth swelling, No epistaxis, No nose congestion, No nose pain, No throat pain, No throat swelling, No other Respiratory: short of breath, other (hypoxia) Cardiovascular: other (history of atrial fibrillation) Gastrointestinal: dysphagia (choking at times) Genitourinary: decreased output Musculoskeletal: joint pain, muscle weakness Skin: No no symptoms reported, No see HPI, No change in color, No change in hair/nails, No dryness, No hx of skin cancer, No lesions, No lumps, No pruritus, No rash, No other Psychiatric/Neurological: Paresthesia, Pre-Existing Deficit, Seizure, Tremors, Weakness Physical Exam Vital Signs Vital Signs - First Documented 07/03/21 07/03/21 07/03/21 07/03/21 13:55 14:10 14:36 14:55 Temp 35.7 Pulse 115 Resp 18 B/P (MAP) 131/106 Pulse Ox 75 O2 Delivery NIV CPAP O2 Flow Rate 15.00 FiO2 100 Capillary Refill : Greater Than 3 Seconds Height, Weight, BMI Height: 5'4.00" Weight: 166lbs. 3.0oz. 70.630739cm; 26.87 BMI Method:Stated General Appearance: Other (sedated on ventilator) HEENT: Other (ET tube and OG tube in place) Neck: Supple Respiratory: Decreased Breath Sounds Cardiovascular: Regular Rate, Rhythm, Systolic Murmur Gastrointestinal: Normal Bowel Sounds, Soft Rectal: Deferred Genital/Rectal: Other (chase in place) Extremity: No Pedal Edema Neurologic/Psychiatric: Other (sedated on ventilator) Skin: Warm/Dry Comments Laboratory Tests 07/03/21 14:00: White Blood Count 20.4H, Red Blood Count 4.97, Hemoglobin 18.0H, Hematocrit 58H, Mean Corpuscular Volume 117H, Mean Corpuscular Hemoglobin 36H, Mean Corpuscular Hemoglobin Concent 31L, Red Cell Distribution Width 15.9H, Platelet Count 137, Mean Platelet Volume 12.6H, Immature Granulocyte % (Auto) 1, Neutrophils (%) (Auto) 80H, Lymphocytes (%) (Auto) 10L, Monocytes (%) (Auto) 10, Eosinophils (%) (Auto) 0, Basophils (%) (Auto) 0, Neutrophils # (Auto) 16.2H, Lymphocytes # (Auto) 1.9, Monocytes # (Auto) 2.0H, Eosinophils # (Auto) 0.0, Basophils # (Auto) 0.1, Immature Granulocyte # (Auto) 0.2H, Neutrophils % (Manual) 85, Lymphocytes % (Manual) 9, Monocytes % (Manual) 6, Blood Morphology Comment NORMAL 07/03/21 14:15: Urine Color YELLOW, Urine Clarity CLEAR, Urine pH 5.0, Urine Specific Ohlman 1.025H, Urine Protein NEGATIVE, Urine Glucose (UA) NEGATIVE, Urine Ketones TRACEH, Urine Nitrite NEGATIVE, Urine Bilirubin 1+H, Urine Urobilinogen 1.0, Urine Leukocyte Esterase NEGATIVE, Urine RBC (Auto) NEGATIVE, Urine RBC NONE, Urine WBC NONE, Urine Squamous Epithelial Cells NONE, Urine Crystals NONE, Urine Bacteria NEGATIVE, Urine Casts NONE, Urine Mucus NEGATIVE, Urine Culture Indicated NO 07/03/21 14:35: Blood Gas Puncture Site RT RAD, Blood Gas Patient Temperature 35.2, Arterial Blood pH 7.38, Arterial Blood Partial Pressure CO2 35, Arterial Blood Partial Pressure O2 304H, Arterial Blood HCO3 21L, Arterial Blood Total CO2 21.9, Arterial Blood Oxygen Saturation 100, Arterial Blood Base Excess -3.9L, Bharath T est YES-POS, Blood Gas Ventilator Setting YES, Blood Gas Inspired Oxygen 100% 07/03/21 15:06: Prothrombin Time 16.2H, INR Comment 1.3, Activated Partial Thromboplast Time 25, D-Dimer 2.70H, Sodium Level 154H, Potassium Level 4.4, Chloride Level 114H, Carbon Dioxide Level 22, Anion Gap 18H, Blood Urea Nitrogen 58H, Creatinine 2.34H, Estimat Glomerular Filtration Rate 27, BUN/Creatinine Ratio 25, Glucose Level 162H, Lactic Acid Level 3.14*H, Calcium Level 9.8, Corrected Calcium 9.9, Magnesium Level 2.8H, Total Bilirubin 2.0H, Aspartate Amino Transf (AST/SGOT) 14, Alanine Aminotransferase (ALT/SGPT) < 6, Alkaline Phosphatase 116, Troponin I 0.038H, C-Reactive Protein High Sensitivity 0.08, Total Protein 7.4, Albumin 3.9, Triglycerides Level 167H, Procalcitonin 0.15H 07/03/21 15:17: Influenza Type A (RT-PCR) Not Detected, Influenza Type B (RT-PCR) Not Detected, SARS-CoV-2 RNA (RT-PCR) Not Detected 07/03/21 17:53: Blood Gas Puncture Site NA, Blood Gas Patient Temperature 37.3, Arterial Blood pH 7.38, Arterial Blood Partial Pressure CO2 32L, Arterial Blood Partial Pressure O2 361H, Arterial Blood HCO3 19L, Arterial Blood Total CO2 19.4L, Arterial Blood Oxygen Saturation 100, Arterial Blood Base Excess -5.7L, Bharath Test NA, Blood Gas Ventilator Setting YES, Blood Gas Inspired Oxygen 100% 07/03/21 18:53: Sodium Level [Pending], Potassium Level [Pending], Chloride Level [Pending], Carbon Dioxide Level [Pending], Anion Gap [Pending], Blood Urea Nitrogen [Pendin g], Creatinine [Pending], BUN/Creatinine Ratio [Pending], Glucose Level [Pending], Lactic Acid Level [Pending], Calcium Level [Pending] 07/03/21 18:59: Glucometer 159H Assessment/Plan Assessment and Plan 1. Acute Respiratory Failure--sedated on ventilator with pulmonary consult, will cover with wide spectrum antibiotics for possible aspiration, cover with heparin for possible PE, V/Q scan ordered for morning 2. Hypovolemic/Septic Shock--aggressive IVF rehydration, pressors prn for BP support, broad spectrum IV antibiotics 3. Acute on Chronic Renal Failure--IVFs and monitor BUN/Cr 4. History of Seizure Disorder--sedated with propofol drip 5. History of Atrial Fibrillation--monitor on telemetry 6. History of Previous CVA and Hemorrhagic Stroke--family understands risk of heparin and is agreeable to cover due to possible PE 7. Recent Right Hip Fracture--S/P surgery 8. Parkinson's Discussed with daughter and son. They understand grave condition Admission Diagnosis Admission Status: Inpatient Order (span 2 midnights) Reason for Inpatient Admission: Is sedated on ventilator/critically ill NAPOLEON SNEED DO Jul 03, 2021 19:18
[2021-07-03 19:28] LABS: CALCIUM 9.4 MG/DL (8.5-10.1); CREATININE SERUM 2.22 MG/DL (0.60-1.30); POTASSIUM 4.6 MMOL/L (3.6-5.0)
[2021-07-03] MEDS ORDERED: RT-ALBUTEROL/IPRATROPIUM 3 ML (DUONEB) VIAL INH PRN (19:45)
[2021-07-03 19:49] LABS: HEMATOCRIT 54 % (40-54); HEMOGLOBIN 16.7 g/dL (13.3-17.7); MEAN CORPUSCULAR HEMOGLOBIN 35 pg (25-34); MEAN CORPUSCULAR HGB CONC 31 g/dL (32-36); MEAN CORPUSCULAR VOLUME 114 fL (80-99); PLATELET COUNT 157 10^3/uL (130-400); WHITE BLOOD COUNT 23.5 10^3/uL (4.3-11.0)
[2021-07-03 19:55] LABS: INR 1.2 (0.8-1.4)
[2021-07-03] MEDS: PROPOFOL DRIP (ICU) 100 ML IV SCH (20:20)
[2021-07-03] MEDS: RT-ALBUTEROL/IPRATROPIUM 3 ML (DUONEB) VIAL INH SCH (22:00)
[2021-07-04] VITALS (43 sets, daily range): BP systolic 76–136; BP diastolic 54–87
[2021-07-04] MEDS: RT-ALBUTEROL/IPRATROPIUM 3 ML (DUONEB) VIAL INH SCH ×6 (02:01→22:20)
[2021-07-04] MEDS: LACTATED RINGERS 1,000 ML IV SCH ×4 (02:07→19:45)
[2021-07-04] MEDS: inSUlin ASPART (NovoLOG) 1 UNIT/0.01 ML (CHARGE PER UNIT) SC SCH ×4 (02:07→17:47)
[2021-07-04] MEDS: PROPOFOL DRIP (ICU) 100 ML IV SCH ×3 (02:10→23:42)
[2021-07-04] MEDS: PIPERACILLIN/TAZO 4.5 GM/NS 100 ML IV SCH ×6 (02:11→16:47)
[2021-07-04] MEDS: VASOPRESSIN INJECTION 20 UNIT in NS (IVPB) 100 ML IV SCH ×2 (03:43→15:25)
[2021-07-04 06:01] LABS: BASOPHILS % (AUTO) 0 % (0-10); EOSINOPHILS % (AUTO) 0 % (0-10); HEMATOCRIT 43 % (40-54); HEMOGLOBIN 13.9 g/dL (13.3-17.7); LYMPHOCYTES # (AUTO) 1.4 10^3/uL (1.0-4.0); LYMPHOCYTES % (AUTO) 7 % (12-44); MEAN CORPUSCULAR HEMOGLOBIN 36 pg (25-34); MEAN CORPUSCULAR HGB CONC 32 g/dL (32-36); MEAN CORPUSCULAR VOLUME 112 fL (80-99); MEAN PLATELET VOLUME 12.2 fL (9.0-12.2); MONOCYTES # (AUTO) 2.2 10^3/uL (0.0-1.0); MONOCYTES % (AUTO) 11 % (0-12); NEUTROPHILS # (AUTO) 16.2 10^3/uL (1.8-7.8); NEUTROPHILS % (AUTO) 81 % (42-75); PLATELET COUNT 123 10^3/uL (130-400)
[2021-07-04 06:02] LABS: ABG BASE EXCESS -3.6 MMOL/L (-2.5-2.5); ABG OXYGEN SATURATION 97 % (94-100); ABG PCO2 30 MMHG (35-45); ABG PH 7.44 (7.37-7.43); ABG PO2 87 MMHG (79-93); ABG TCO2 20.7 MMOL/L (21.0-31.0)
[2021-07-04 06:03] LABS: ALLENS TEST YES-POS; INSPIRED O2 35%; PATIENT TEMP 37.3; VENTILATOR YES
[2021-07-04 06:11] LABS: CHLORIDE 120 MMOL/L (98-107); POTASSIUM 3.8 MMOL/L (3.6-5.0); SODIUM 154 MMOL/L (135-145)
[2021-07-04 06:13] LABS: CALCIUM 9.2 MG/DL (8.5-10.1); GLUCOSE 151 MG/DL (70-105)
[2021-07-04 06:14] LABS: CARBON DIOXIDE 19 MMOL/L (21-32)
[2021-07-04 06:17] LABS: CREATININE SERUM 1.61 MG/DL (0.60-1.30); GFR ESTIMATED 41
[2021-07-04 06:18] LABS: BUN/CREATININE RATIO 28
[2021-07-04] MEDS: POTASSIUM CL 10MEQ/50ML IVPB 50 ML IV SCH (06:35)
[2021-07-04] MEDS: KCL 20 MEQ TAB (K-DUR) PO SCH (06:35)
[2021-07-04] MEDS: MAGNESIUM 1 GM/100 ML IVPB 100 ML IV SCH (06:35)
[2021-07-04] MEDS: NOREPINEPHRINE 8 MG/250 ML 250 ML IV SCH (06:37)
[2021-07-04 06:44] LABS: PHOSPHORUS 2.8 MG/DL (2.3-4.7)
[2021-07-04 06:46] LABS: MAGNESIUM 2.4 MG/DL (1.6-2.4)
--- NOTE | 2021-07-04 07:01 | Occ Therapy Progress Note ---
Therapy Progress Note OT eval received. Pt is currently intubated. OT will continue to monitor pt status and initiate treatment when pt is medically stable and able to actively participate in skilled therapy. IRWIN LANCASTER Jul 04, 2021 07:01
--- NOTE | 2021-07-04 07:26 | Physical Therapy Progress Note ---
Therapy Progress Note Patient currently sedated and intubated. PT will monitor patient status and initiate treatment when patient is medically stable and able to actively participate with skilled therapy. RAMBO PAYTON PT Jul 04, 2021 07:26
--- NOTE | 2021-07-04 07:28 | Diagnostic Imaging Report ---
INDICATION: Suspected aspiration pneumonia. On a ventilator. EXAMINATION: Chest 07/04/2021 COMPARISON: 07/03/2021 FINDINGS: There is a left-sided pacemaker. A tubular structure medial to the pacemaker stable from previous imaging perhaps a drainage catheter. This is of uncertain etiology, correlate clinically. There is an overlying density of uncertain etiology but also stable. ET tube unchanged. There is a feeding tube with its tip coursing beneath diaphragm and not visualized. There is a right-sided jugular line with the tip in the distal SVC. Heart is prominent. There is pulmonary vascular congestion. There is infiltrate at the left lung base. No effusions. There is no pneumothorax. IMPRESSION: 1. Left base infiltrate with pulmonary vascular congestion. Tubes and lines as above. Dictated by: Dictated on workstation # [id number]
[2021-07-04] MEDS: PANTOPRAZOLE 40 MG (PROTONIX) VIAL IV SCH (08:04)
[2021-07-04] MEDS ORDERED: ONDA-105 PO (09:41)
[2021-07-04] MEDS ORDERED: TRAM50TA3 PO (09:41)
[2021-07-04] MEDS ORDERED: ACET-2840 PO (09:41)
[2021-07-04] MEDS ORDERED: CARB12DR OU (09:41)
[2021-07-04] MEDS ORDERED: FERR-74 PO (09:41)
[2021-07-04] MEDS ORDERED: SENN-145 PO (09:41)
--- NOTE | 2021-07-04 10:23 | Tele-ICU Progress Note ---
Subjective Date Seen by a Provider: Jul 04, 2021 Time Seen by a Provider: 10:20 Sepsis Event Evaluation Height, Weight, BMI Height: 5'4.00" Weight: 166lbs. 3.0oz. [id number]; 26.87 BMI Method:Stated Focused Exam Lactate Level 07/03/21 18:53: Lactic Acid Level 4.47*H 07/03/21 21:35: Lactic Acid Level 3.15*H 07/03/21 23:51: Lactic Acid Level 3.85*H Time of Focused Exam: 15:58 Exam Exam Patient acknowledged, consented, and participated in this virtual visit which was conducted using real time audio/video Vital Signs Date Time Temp Pulse Resp B/P (MAP) Pulse Ox O2 Delivery O2 Flow Rate FiO2 07/04/21 10:02 112 18 95 35 07/04/21 08:00 37.2 100 17 126/87 (100) 98 Mechanical Ventilator 35.00 07/04/21 07:50 Mechanical Ventilator 35.00 98 07/04/21 07:00 102 07/04/21 07:00 37.2 101 17 111/74 (86) 98 Mechanical Ventilator 35.00 07/04/21 06:40 89 18 98 35 07/04/21 06:37 93 90/61 07/04/21 06:00 37.3 95 18 118/84 (95) 97 Mechanical Ventilator 35.00 07/04/21 05:00 37.5 99 18 94/69 (77) 96 Mechanical Ventilator 35.00 07/04/21 04:00 Mechanical Ventilator 100 07/04/21 04:00 37.4 104 18 94/69 (77) 95 Mechanical Ventilator 35.00 07/04/21 03:00 37.0 92 17 106/74 (85) 96 Mechanical Ventilator 35.00 07/04/21 02:10 87 103/64 07/04/21 02:02 80 18 96 35 07/04/21 02:00 36.5 78 18 110/77 (88) 96 Mechanical Ventilator 35.00 07/04/21 01:00 36.1 77 18 103/73 (83) 98 Mechanical Ventilator 35.00 07/04/21 01:00 77 07/04/21 00:00 Mechanical Ventilator 100 07/04/21 00:00 35.9 80 18 112/77 (89) 99 Mechanical Ventilator 35.00 07/03/21 23:00 36.0 80 18 108/76 (87) 98 Mechanical Ventilator 40.00 07/03/21 22:01 75 18 99 35 07/03/21 22:00 36.1 71 17 107/82 (90) 100 Mechanical Ventilator 40.00 07/03/21 21:00 36.3 79 18 108/77 (87) 98 Mechanical Ventilator 40.00 07/03/21 20:20 Mechanical Ventilator 40.00 07/03/21 20:20 76 92/67 07/03/21 20:00 36.7 07/03/21 20:00 36.7 83 17 113/84 (93) 96 Mechanical Ventilator 100.00 07/03/21 19:45 36.9 79 17 93/68 (79) 98 Mechanical Ventilator 100.00 07/03/21 19:30 37 75 17 85/65 (72) 98 Mechanical Ventilator 100.00 07/03/21 19:26 35.9 72 99 50 07/03/21 19:15 37 73 18 87/65 (74) 98 Mechanical Ventilator 100.00 07/03/21 19:00 73 07/03/21 19:00 37 73 18 123/82 (96) 94 Mechanical Ventilator 100.00 07/03/21 18:49 72 18 99 50 07/03/21 18:00 75 17 95/68 (77) 99 Mechanical Ventilator 100.00 07/03/21 17:10 Mechanical Ventilator 100 07/03/21 17:07 91 18 100 100 07/03/21 17:00 87 17 120/89 (99) 99 Mechanical Ventilator 100.00 07/03/21 17:00 93 07/03/21 16:31 35.9 82 17 99/73 96 Mechanical Ventilator 15.00 15.00 07/03/21 14:55 35.7 107 32 107/74 (85) 07/03/21 14:46 76 80/65 07/03/21 14:36 18 100 07/03/21 14:10 115 131/106 07/03/21 13:55 75 NIV CPAP 15.00 I & O 07/04/21 07:00 Intake Total 5335 ml Output Total 450 ml Balance 4885 ml Height & Weight Height: 5'4.00" Weight: 166lbs. 3.0oz. 70.106506rb; 26.87 BMI Method:Stated General Appearance: Other (sedated on ventilator) HEENT: Other (ET tube and OG tube in place) Neck: Supple Respiratory: Decreased Breath Sounds Cardiovascular: Regular Rate, Rhythm, Systolic Murmur Capillary Refill: Greater Than 3 Seconds Peripheral Pulses: 2+ Radial Pulses (R), 2+ Radial Pulses (L) Gastrointestinal: normal bowel sounds, non tender, soft Extremity: No Pedal Edema Neurologic/Psychiatric: Other (sedated on ventilator) Skin: Warm/Dry Results Lab Laboratory Tests 07/03/21 14:00 07/03/21 15:06 07/03/21 18:53 07/04/21 05:47 Assessment/Plan Assessment/Plan Tele-ICU Physician , consultation) Available chart/ vitals / labs / Images reviewed H&P is from ER notes Patient's information available about PMH, Shx, Fhx allergy reviewed in EMR. ROS as per chart and RN report Now in ICU, hemodynamically stable on levo , FOLLOWS COMMANDS Video assessment done using teleICU camera, rest of exam as per RN Discussed with RN. Sedation gtt: ( RASS ) propofol OFF VENT SETTINGS and ABG reviewed Not candidate for SBT today REVIEWED Cardiovascular Stability / Sedation Score / FI02/PEEP / ABG / CXR Consultants: Hospital course: -07/03- acute resp distress- intubated in ER, Thoravent LEFT in ER 07/03 for ansence of air entry on left A/P Acute respiratory failure , hypoxic- - etiology is not clear - ? aspiration , ? PE ( off AC - s/p hip sxm + h/o PE in past - seen on CTA 2016, has been on lovenox for DVT prophylaxis in rechab? , elv ddimer to 2.7 ) , ? seizure , pain meds ? -Intubated 07/03 - on 30 % = 5 now - start edon empiric heparin gtt - > today US LE - neg for DVT , ECHO - no right side strain , VQ pending- HOLD HEPRIN GTT NOW - strt ABX - follow WILL DECREASE SEDATION - SSSESS FOR ECTUBATION shock- ? etiology - possible Infection - ? 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 - follow , keep thoravent in place today LUZ MARINA - with elevated NA and Hb - most likely dehydration , prerenal - cont hydration , IMPROVING - change IVF to 1/2 ns Leukocytosis - cont empiric abx - cx pending A fib , chronic , s/p pacemaker - off AC with reported hematoma / bleed post op - as per chart : mbolic stroke and hemorrhagic stroke, unable to tolerate oral anticoagulation Recent Right hip fracture - s/p sx June 05, 2021 History of seizure disorder as per notes - on valproic acid PO - TO RESUME history of CVA with residual deficits, Parkinson's Acute on Chronic Anemia--S/P transfusion postoperatively Lines : RIGHT IJ 07/03 (Central Line Necessity Reviewed) Mclaughlin: + OG: Nutrition: tf to satrt if not extubated Analgesia: Anxiety/ delirium VTE Prophylaxis: Stress Ulcer Prophylaxis: PPI Glycemic Control: Plans in collaboration with bedside consultants and IM MDs. Discussed with RN to reach out if any questions or concerns A total of 40 minutes of critical care time was devoted to this patient today, required to treat and/or prevent further deterioration of critical care condition ( as above ) . JENNA HERRERA MD Jul 04, 2021 10:23
[2021-07-04] MEDS: 1/2 NS IV SOLUTION 1,000 ML IV SCH ×3 (11:25→23:42)
--- NOTE | 2021-07-04 12:36 | Progress Note ---
Subjective Date Seen by a Provider: Jul 04, 2021 Time Seen by a Provider: 08:35 Subjective/Events-last exam Fwup acute respiratory failure, hypovolemic/septic shock, acute renal failure, Hx of atrial fibrillation, recent right hip fracture, parkinson's, Hx. of hemorrhagic stroke with residual. Patient sedated on ventilator. FiO2 down to 35%. Norepinephrine drip decreased. Daughter at bedside Focused Exam Lactate Level 07/03/21 18:53: Lactic Acid Level 4.47*H 07/03/21 21:35: Lactic Acid Level 3.15*H 07/03/21 23:51: Lactic Acid Level 3.85*H Time of Focused Exam: 15:58 Objective Exam Vital Signs Date Time Temp Pulse Resp B/P (MAP) Pulse Ox O2 Delivery O2 Flow Rate FiO2 07/04/21 10:02 112 18 95 35 07/04/21 08:00 37.2 100 17 126/87 (100) 98 Mechanical Ventilator 35.00 07/04/21 07:50 Mechanical Ventilator 35.00 98 07/04/21 07:00 102 07/04/21 07:00 37.2 101 17 111/74 (86) 98 Mechanical Ventilator 35.00 07/04/21 06:40 89 18 98 35 07/04/21 06:37 93 90/61 07/04/21 06:00 37.3 95 18 118/84 (95) 97 Mechanical Ventilator 35.00 07/04/21 05:00 37.5 99 18 94/69 (77) 96 Mechanical Ventilator 35.00 07/04/21 04:00 Mechanical Ventilator 100 07/04/21 04:00 37.4 104 18 94/69 (77) 95 Mechanical Ventilator 35.00 07/04/21 03:00 37.0 92 17 106/74 (85) 96 Mechanical Ventilator 35.00 07/04/21 02:10 87 103/64 07/04/21 02:02 80 18 96 35 07/04/21 02:00 36.5 78 18 110/77 (88) 96 Mechanical Ventilator 35.00 07/04/21 01:00 36.1 77 18 103/73 (83) 98 Mechanical Ventilator 35.00 07/04/21 01:00 77 07/04/21 00:00 Mechanical Ventilator 100 07/04/21 00:00 35.9 80 18 112/77 (89) 99 Mechanical Ventilator 35.00 07/03/21 23:00 36.0 80 18 108/76 (87) 98 Mechanical Ventilator 40.00 07/03/21 22:01 75 18 99 35 07/03/21 22:00 36.1 71 17 107/82 (90) 100 Mechanical Ventilator 40.00 07/03/21 21:00 36.3 79 18 108/77 (87) 98 Mechanical Ventilator 40.00 07/03/21 20:20 Mechanical Ventilator 40.00 07/03/21 20:20 76 92/67 07/03/21 20:00 36.7 07/03/21 20:00 36.7 83 17 113/84 (93) 96 Mechanical Ventilator 100.00 07/03/21 19:45 36.9 79 17 93/68 (79) 98 Mechanical Ventilator 100.00 07/03/21 19:30 37 75 17 85/65 (72) 98 Mechanical Ventilator 100.00 07/03/21 19:26 35.9 72 99 50 07/03/21 19:15 37 73 18 87/65 (74) 98 Mechanical Ventilator 100.00 07/03/21 19:00 73 07/03/21 19:00 37 73 18 123/82 (96) 94 Mechanical Ventilator 100.00 07/03/21 18:49 72 18 99 50 07/03/21 18:00 75 17 95/68 (77) 99 Mechanical Ventilator 100.00 07/03/21 17:10 Mechanical Ventilator 100 07/03/21 17:07 91 18 100 100 07/03/21 17:00 87 17 120/89 (99) 99 Mechanical Ventilator 100.00 07/03/21 17:00 93 07/03/21 16:31 35.9 82 17 99/73 96 Mechanical Ventilator 15.00 15.00 07/03/21 14:55 35.7 107 32 107/74 (85) 07/03/21 14:46 76 80/65 07/03/21 14:36 18 100 07/03/21 14:10 115 131/106 07/03/21 13:55 75 NIV CPAP 15.00 I & O 07/04/21 07:00 Intake Total 5335 ml Output Total 450 ml Balance 4885 ml Capillary Refill : Greater Than 3 Seconds General Appearance: Other (sedated on ventilator) Respiratory: Lungs Clear, Decreased Breath Sounds, Other (left thoravent) Cardiovascular: Systolic Murmur, Tachycardia Gastrointestinal: normal bowel sounds, soft Extremity: No Pedal Edema Neurologic/Psychiatric: Other (sedated) Results Lab Laboratory Tests 07/03/21 14:00: White Blood Count 20.4H, Red Blood Count 4.97, Hemoglobin 18.0H, Hematocrit 58H, Mean Corpuscular Volume 117H, Mean Corpuscular Hemoglobin 36H, Mean Corpuscular Hemoglobin Concent 31L, Red Cell Distribution Width 15.9H, Platelet Count 137, Mean Platelet Volume 12.6H, Immature Granulocyte % (Auto) 1, Neutrophils (%) (Auto) 80H, Lymphocytes (%) (Auto) 10L, Monocytes (%) (Auto) 10, Eosinophils (%) (Auto) 0, Basophils (%) (Auto) 0, Neutrophils # (Auto) 16.2H, Lymphocytes # (Auto) 1.9, Monocytes # (Auto) 2.0H, Eosinophils # (Auto) 0.0, Basophils # (Auto) 0.1, Immature Granulocyte # (Auto) 0.2H, Neutrophils % (Manual) 85, Lymphocytes % (Manual) 9, Monocytes % (Manual) 6, Blood Morphology Comment NORMAL 07/03/21 14:15: Urine Color YELLOW, Urine Clarity CLEAR, Urine pH 5.0, Urine Specific [place] 1.025H, Urine Protein NEGATIVE, Urine Glucose (UA) NEGATIVE, Urine Ketones TRACEH, Urine Nitrite NEGATIVE, Urine Bilirubin 1+H, Urine Urobilinogen 1.0, Urine Leukocyte Esterase NEGATIVE, Urine RBC (Auto) NEGATIVE, Urine RBC NONE, Urine WBC NONE, Urine Squamous Epithelial Cells NONE, Urine Crystals NONE, Urine Bacteria NEGATIVE, Urine Casts NONE, Urine Mucus NEGATIVE, Urine Culture Indicated NO 07/03/21 14:35: Blood Gas Puncture Site RT RAD, Blood Gas Patient Temperature 35.2, Arterial Blood pH 7.38, Arterial Blood Partial Pressure CO2 35, Arterial Blood Partial Pressure O2 304H, Arterial Blood HCO3 21L, Arterial Blood Total CO2 21.9, Arterial Blood Oxygen Saturation 100, Arterial Blood Base Excess -3.9L, Bharath Test YES-POS, Blood Gas Ventilator Setting YES, Blood Gas Inspired Oxygen 100% 07/03/21 15:06: Prothrombin Time 16.2H, INR Comment 1.3, Activated Partial Thromboplast Time 25, D-Dimer 2.70H, Sodium Level 154H, Potassium Level 4.4, Chloride Level 114H, Carb on Dioxide Level 22, Anion Gap 18H, Blood Urea Nitrogen 58H, Creatinine 2.34H, Estimat Glomerular Filtration Rate 27, BUN/Creatinine Ratio 25, Glucose Level 162H, Lactic Acid Level 3.14*H, Calcium Level 9.8, Corrected Calcium 9.9, Magnesium Level 2.8H, Total Bilirubin 2.0H, Aspartate Amino Transf (AST/SGOT) 14, Alanine Aminotransferase (ALT/SGPT) < 6, Alkaline Phosphatase 116, Troponin I 0.038H, C-Reactive Protein High Sensitivity 0.08, Total Protein 7.4, Albumin 3.9, Triglycerides Level 167H, Procalcitonin 0.15H 07/03/21 15:17: Influenza Type A (RT-PCR) Not Detected, Influenza Type B (RT-PCR) Not Detected, SARS-CoV-2 RNA (RT-PCR) Not Detected 07/03/21 17:53: Blood Gas Puncture Site NA, Blood Gas Patient Temperature 37.3, Arterial Blood pH 7.38, Arterial Blood Partial Pressure CO2 32L, Arterial Blood Partial Pressure O2 361H, Arterial Blood HCO3 19L, Arterial Blood Total CO2 19.4L, Arterial Blood Oxygen Saturation 100, Arterial Blood Base Excess -5.7L, Bharath Test NA, Blood Gas Ventilator Setting YES, Blood Gas Inspired Oxygen 100% 07/03/21 18:53: White Blood Count 23.5H, Red Blood Count 4.72, Hemoglobin 16.7, Hematocrit 54, Mean Corpuscular Volume 114H, Mean Corpuscular Hemoglobin 35H, Mean Corpuscular Hemoglobin Concent 31L, Red Cell Distribution Width 15.8H, Platelet Count 157, Mean Platelet Volume 12.0, Prothrombin Time 16.0H, INR Comment 1.2, Activated Partial Thromboplast Time 26, Sodium Level 157H, Potassium Level 4.6, Chloride Level 119H, Carbon Dioxide Level 17L, Anion Gap 21H, Blood Urea Nitrogen 55H, Creatinine 2.22H, Estimat Glomerular Filtration Rate 28, BUN/Creatinine Ratio 25, Glucose Level 174H, Lactic Acid Level 4.47*H, Calcium Level 9.4 07/03/21 18:59: Glucometer 159H 07/03/21 21:35: Lactic Acid Level 3.15*H 07/03/21 23:51: Lactic Acid Level 3.85*H, Activated Partial Thromboplast Time > 200*H 07/04/21 00:53: Glucometer 179H 07/04/21 05:47: White Blood Count 20.0H, Red Blood Count 3.88L, Hemoglobin 13.9, Hematocrit 43, Mean Corpuscular Volume 112H, Mean Corpuscular Hemoglobin 36H, Mean Corpuscular Hemoglobin Concent 32, Red Cell Distribution Width 16.2H, Platelet Count 123L, Mean Platelet Volume 12.2, Immature Granulocyte % (Auto) 1, Neutrophils (%) (Auto) 81H, Lymphocytes (%) (Auto) 7L, Monocytes (%) (Auto) 11, Eosinophils (%) (Auto) 0, Basophils (%) (Auto) 0, Neutrophils # (Auto) 16.2H, Lymphocytes # (Auto) 1.4, Monocytes # (Auto) 2.2H, Eosinophils # (Auto) 0.0, Basophils # (Auto) 0.0, Immature Granulocyte # (Auto) 0.1, Sodium Level 154H, Potassium Level 3.8, Chloride Level 120H, Carbon Dioxide Level 19L, Anion Gap 15H, Blood Urea Nitrogen 45H, Creatinine 1.61H, Estimat Glomerular Filtration Rate 41, BUN/Creatinine Ratio 28, Glucose Level 151H, Calcium Level 9.2, Phosphorus Level 2.8, Magnesium Level 2.4, Troponin I < 0.028 07/04/21 05:52: Blood Gas Puncture Site RT RAD, Blood Gas Patient Temperature 37.3, Arterial Blood pH 7.44H, Arterial Blood Partial Pressure CO2 30L, Arterial Blood Partial Pressure O2 87, Arterial Blood HCO3 20L, Arterial Blood Total CO2 20.7L, Arterial Blood Oxygen Saturation 97, Arterial Blood Base Excess -3.6L, Bharath Test YES-POS, Blood Gas Ventilator Setting YES, Blood Gas Inspired Oxygen 35% 07/04/21 06:30: Activated Partial Thromboplast Time > 200*H 07/04/21 11:34: Glucometer 88 Assessment/Plan Assessment/Plan Assess & Plan/Chief Complaint 1. Acute Respiratory Failure--sedated on ventilator but FiO2 down to 35%, pulmonology consulted, WBC still 20,000 and CXR shows possible infiltrate in left base, will change V/Q scan to CT angiogram since Cr down to 1.7, on protonix for GI prophylaxis and on heparin drip until PE ruled out, continue broad spectrum antibiotics 2. Hypovolemic/Septic Shock--still on low dose norepinephrine--should be able to wean off of that today, continue with IVFs 3. Acute Renal Failure--CR down to 1.7 today after aggressive IVFs 4. History of atrial fibrillation/Elevated Troponin-I on admit--likely from hypoxia but consult his book mender 5. History of Previous Hemorrhagic Stroke with Long Term Deficits 6. Parkinson's--treated with sinemet 7. Recent Right hip fracture with surgery Clinical Quality Measures Admission Status Admission Dx 1. Acute Respiratory Failure--sedated on ventilator with pulmonary consult, will cover with wide spectrum antibiotics for possible aspiration, cover with heparin for possible PE, V/Q scan ordered for morning 2. Hypovolemic/Septic Shock--aggressive IVF rehydration, pressors prn for BP support, broad spectrum IV antibiotics 3. Acute on Chronic Renal Failure--IVFs and monitor BUN/Cr 4. History of Seizure Disorder--sedated with propofol drip 5. History of Atrial Fibrillation--monitor on telemetry 6. History of Previous CVA and Hemorrhagic Stroke--family understands risk of heparin and is agreeable to cover due to possible PE 7. Recent Right Hip Fracture--S/P surgery 8. Parkinson's Discussed with daughter and son. They understand grave condition NAPOLEON AKHTAR DO Jul 04, 2021 12:36
--- NOTE | 2021-07-04 13:03 | Consultation-Cardiology ---
HPI-Cardiology Cardiology Consultation Date of Consultation 07/04/21 Date of Admission Time Seen by Provider: 12:56 Indication: Acute respiratory failure HPI 85 years old gentleman, currently intubated unable to provide any history, the history was obtained by interviewing his daughter and reviewing his records. Patient had lunch which was soup at the nursing home facility and [place], went to the bathroom when he returned to the chair he slumped back in the chair. Became hypoxemic, lethargic. Continue to deteriorate which happened fairly quickly and he was transferred to the emergency room. In the emergency room he was intubated. He was hypotensive. Currently he is awake and moving his eyes, being weaned off the ventilator but still ventilator dependent. He has history of seizure disorder, does not report any chest pain. He is currently on ventricular paced rhythm. Home Medications & Allergies Allergies: Coded Allergies: Cobamamide (Unverified Allergy, Unknown, MEMORY LOSS, 01/18/14) cyanocobalamin (Unverified Allergy, Unknown, MEMORY LOSS, 01/18/14) fentanyl (Verified Allergy, Unknown, 12/08/15) lactose (Verified Allergy, Unknown, 03/03/18) morphine (Verified Allergy, Unknown, Pt has received tramadol in the past, 06/06/21) codeine (Unverified Adverse Reaction, Mild, SICK, 08/23/15) promethazine HCl (Unverified Adverse Reaction, Mild, LOSS OF MEMORY, 04/12/11) hydrocodone (Verified Adverse Reaction, Unknown, 12/08/15) low blood pressure Uncoded Allergies: narcotics (Adverse Reaction, Unknown, 12/08/15) Home Medication List Reviewed: Yes [id number] Hx Patient Social History Marital Status: Employed/Student: retired Smoking Status: Unknown if Ever Smoked Former smoker/When Quit: Feb 14, 1986 Type Used: Cigarettes Recent Hopitalizations: No Have you traveled recently?: No Alcohol Use?: Unable to obtain Immunizations Up To Date Tetanus Booster (TDap): Unknown Date of Pneumonia Vaccine: May 17, 2019 Date of Influenza Vaccine: May 12, 2019 Past Medical History Discussed below Family Medical History Family Medical Hx Noncontributory Family History: Cancer G8 BROTHER G8 BROTHER G8 SISTER Cancer of colon G8 BROTHER Cataract 19 FATHER Congestive heart failure 19 FATHER Family history: Allergy DAUGHTER Family history: Alzheimer's disease 19 FATHER Family history: Breast disease G8 SISTER No Family History of: Abdominal aortic aneurysm Drew's disease Alcoholism Aphasia Chest pain Congenital heart disease Cystic fibrosis Dementia Dysphagia Family history: Arthritis Family history: Asthma Family history: Cardiovascular disease Family history: Coronary thrombosis Family history: Diabetes mellitus Family history: Gastrointestinal disease Family history: Glaucoma Family history: Hypertension Family history: Osteoporosis Family history: Thyroid disorder Headache Hearing loss Heart disease Hereditary disease History of - anemia History of - disorder History of - respiratory disease History of drug abuse Human immunodeficiency virus (HIV) seropositivity Hypercholesterolemia Infertile Kidney disease Malignant neoplasm of lung Myocardial infarction Parkinson's disease Prostate cancer Psychotic disorder Seizure disorder Stroke Tuberculosis Visual impairment Review of Systems-General Review of Systems Constitutional: weakness, other (Unable to provide review of system, currently ventilator dependent) EENTM: No see HPI, No no symptoms reported, No ear discharge, No hearing loss, No ear pain, No blurred vision, No double vision, No eye pain, No tearing, No vision loss, No dental problems, No hoarseness, No mouth pain, No mouth swelling, No epistaxis, No nose congestion, No nose pain, No throat pain, No throat swelling, No other Respiratory: short of breath, other (hypoxia) Cardiovascular: other (history of atrial fibrillation) Genitourinary: decreased output Musculoskeletal: muscle weakness Skin: No no symptoms reported, No see HPI, No change in color, No change in hair/nails, No dryness, No hx of skin cancer, No lesions, No lumps, No pruritus, No rash, No other Psychiatric/Neurological: Paresthesia, Pre-Existing Deficit, Seizure, Tremors, Weakness All Other Systems Reviewed Negative Unless Noted: Yes Reviewed Test Results Reviewed Test Results Lab Laboratory Tests Test 07/03/21 14:00 07/03/21 14:15 07/03/21 14:35 07/03/21 15:06 Range/Units White Blood Count 20.4 H 4.3-11.0 10^3/uL Red Blood Count 4.97 4.30-5.52 10^6/uL Hemoglobin 18.0 H 13.3-17.7 g/dL Hematocrit 58 H 40-54 % Mean Corpuscular Volume 117 H 80-99 fL Mean Corpuscular Hemoglobin 36 H 25-34 pg Mean Corpuscular Hemoglobin Concent 31 L 32-36 g/dL Red Cell Distribution Width 15.9 H 10.0-14.5 % Platelet Count 137 130-400 10^3/uL Mean Platelet Volume 12.6 H 9.0-12.2 fL Immature Granulocyte % (Auto) 1 % Neutrophils (%) (Auto) 80 H 42-75 % Lymphocytes (%) (Auto) 10 L 12-44 % Monocytes (%) (Auto) 10 0-12 % Eosinophils (%) (Auto) 0 0-10 % Basophils (%) (Auto) 0 0-10 % Neutrophils # (Auto) 16.2 H 1.8-7.8 10^3/uL Lymphocytes # (Auto) 1.9 1.0-4.0 10^3/uL Monocytes # (Auto) 2.0 H 0.0-1.0 10^3/uL Eosinophils # (Auto) 0.0 0.0-0.3 10^3/uL Basophils # (Auto) 0.1 0.0-0.1 10^3/uL Immature Granulocyte # (Auto) 0.2 H 0.0-0.1 10^3/uL Neutrophils % (Manual) 85 % Lymphocytes % (Manual) 9 % Monocytes % (Manual) 6 % Blood Morphology Comment NORMAL Urine Color YELLOW Urine Clarity CLEAR Urine pH 5.0 5-9 Urine Specific Halliday 1.025 H 1.016-1.022 Urine Protein NEGATIVE NEGATIVE Urine Glucose (UA) NEGATIVE NEGATIVE Urine Ketones TRACE H NEGATIVE Urine Nitrite NEGATIVE NEGATIVE Urine Bilirubin 1+ H NEGATIVE Urine Urobilinogen 1.0 < = 1.0 MG/DL Urine Leukocyte Esterase NEGATIVE NEGATIVE Urine RBC (Auto) NEGATIVE NEGATIVE Urine RBC NONE /HPF Urine WBC NONE /HPF Urine Squamous Epithelial Cells NONE /HPF Urine Crystals NONE /LPF Urine Bacteria NEGATIVE /HPF Urine Casts NONE /LPF Urine Mucus NEGATIVE /LPF Urine Culture Indicated NO Blood Gas Puncture Site RT RAD Blood Gas Patient Temperature 35.2 Arterial Blood pH 7.38 7.37-7.43 Arterial Blood Partial Pressure CO2 35 35-45 MMHG Arterial Blood Partial Pressure O2 304 H 79-93 MMHG Arterial Blood HCO3 21 L 23-27 MMOL/L Arterial Blood Total CO2 21.9 21.0-31.0 MMOL/L Arterial Blood Oxygen Saturation 100 94-100 % Arterial Blood Base Excess -3.9 L -2.5-2.5 MMOL/L Bharath Test YES-POS Blood Gas Ventilator Setting YES Blood Gas Inspired Oxygen 100% Prothrombin Time 16.2 H 12.2-14.7 SEC INR Comment 1.3 0.8-1.4 Activated Partial Thromboplast Time 25 24-35 SEC D-Dimer 2.70 H 0.00-0.49 UG/ML Sodium Level 154 H 135-145 MMOL/L Potassium Level 4.4 3.6-5.0 MMOL/L Chloride Level 114 H 98-107 MMOL/L Carbon Dioxide Level 22 21-32 MMOL/L Anion Gap 18 H 5-14 MMOL/L Blood Urea Nitrogen 58 H 7-18 MG/DL Creatinine 2.34 H 0.60-1.30 MG/DL Estimat Glomerular Filtration Rate 27 BUN/Creatinine Ratio 25 Glucose Level 162 H 70-105 MG/DL Lactic Acid Level 3.14 *H 0.50-2.00 MMOL/L Calcium Level 9.8 8.5-10.1 MG/DL Corrected Calcium 9.9 8.5-10.1 MG/DL Magnesium Level 2.8 H 1.6-2.4 MG/DL Total Bilirubin 2.0 H 0.1-1.0 MG/DL Aspartate Amino Transf (AST/SGOT) 14 5-34 U/L Alanine Aminotransferase (ALT/SGPT) < 6 0-55 U/L Alkaline Phosphatase 116 40-136 U/L Troponin I 0.038 H <0.028 NG/ML C-Reactive Protein High Sensitivity 0.08 0.00-0.50 MG/DL Total Protein 7.4 6.4-8.2 GM/DL Albumin 3.9 3.2-4.5 GM/DL Triglycerides Level 167 H <150 MG/DL Procalcitonin 0.15 H <0.10 NG/ML Test 07/03/21 15:17 07/03/21 17:53 07/03/21 18:53 07/03/21 18:59 Range/Units Influenza Type A (RT-PCR) Not Detected Not Detecte Influenza Type B (RT-PCR) Not Detected Not Detecte SARS-CoV-2 RNA (RT-PCR) Not Detected Not Detecte Blood Gas Puncture Site NA Blood Gas Patient Temperature 37.3 Arterial Blood pH 7.38 7.37-7.43 Arterial Blood Partial Pressure CO2 32 L 35-45 MMHG Arterial Blood Partial Pressure O2 361 H 79-93 MMHG Arterial Blood HCO3 19 L 23-27 MMOL/L Arterial Blood Total CO2 19.4 L 21.0-31.0 MMOL/L Arterial Blood Oxygen Saturation 100 94-100 % Arterial Blood Base Excess -5.7 L -2.5-2.5 MMOL/L Bharath Test NA Blood Gas Ventilator Setting YES Blood Gas Inspired Oxygen 100% White Blood Count 23.5 H 4.3-11.0 10^3/uL Red Blood Count 4.72 4.30-5.52 10^6/uL Hemoglobin 16.7 13.3-17.7 g/dL Hematocrit 54 40-54 % Mean Corpuscular Volume 114 H 80-99 fL Mean Corpuscular Hemoglobin 35 H 25-34 pg Mean Corpuscular Hemoglobin Concent 31 L 32-36 g/dL Red Cell Distribution Width 15.8 H 10.0-14.5 % Platelet Count 157 130-400 10^3/uL Mean Platelet Volume 12.0 9.0-12.2 fL Prothrombin Time 16.0 H 12.2-14.7 SEC INR Comment 1.2 0.8-1.4 Activated Partial Thromboplast Time 26 24-35 SEC Sodium Level 157 H 135-145 MMOL/L Potassium Level 4.6 3.6-5.0 MMOL/L Chloride Level 119 H 98-107 MMOL/L Carbon Dioxide Level 17 L 21-32 MMOL/L Anion Gap 21 H 5-14 MMOL/L Blood Urea Nitrogen 55 H 7-18 MG/DL Creatinine 2.22 H 0.60-1.30 MG/DL Estimat Glomerular Filtration Rate 28 BUN/Creatinine Ratio 25 Glucose Level 174 H 70-105 MG/DL Lactic Acid Level 4.47 *H 0.50-2.00 MMOL/L Calcium Level 9.4 8.5-10.1 MG/DL Glucometer 159 H 70-110 MG/DL Test 07/03/21 21:35 07/03/21 23:51 07/04/21 00:53 07/04/21 05:47 Range/Units Lactic Acid Level 3.15 *H 3.85 *H 0.50-2.00 MMOL/L Activated Partial Thromboplast Time > 200 *H 24-35 SEC Glucometer 179 H 70-110 MG/DL White Blood Count 20.0 H 4.3-11.0 10^3/uL Red Blood Count 3.88 L 4.30-5.52 10^6/uL Hemoglobin 13.9 13.3-17.7 g/dL Hematocrit 43 40-54 % Mean Corpuscular Volume 112 H 80-99 fL Mean Corpuscular Hemoglobin 36 H 25-34 pg Mean Corpuscular Hemoglobin Concent 32 32-36 g/dL Red Cell Distribution Width 16.2 H 10.0-14.5 % Platelet Count 123 L 130-400 10^3/uL Mean Platelet Volume 12.2 9.0-12.2 fL Immature Granulocyte % (Auto) 1 % Neutrophils (%) (Auto) 81 H 42-75 % Lymphocytes (%) (Auto) 7 L 12-44 % Monocytes (%) (Auto) 11 0-12 % Eosinophils (%) (Auto) 0 0-10 % Basophils (%) (Auto) 0 0-10 % Neutrophils # (Auto) 16.2 H 1.8-7.8 10^3/uL Lymphocytes # (Auto) 1.4 1.0-4.0 10^3/uL Monocytes # (Auto) 2.2 H 0.0-1.0 10^3/uL Eosinophils # (Auto) 0.0 0.0-0.3 10^3/uL Basophils # (Auto) 0.0 0.0-0.1 10^3/uL Immature Granulocyte # (Auto) 0.1 0.0-0.1 10^3/uL Sodium Level 154 H 135-145 MMOL/L Potassium Level 3.8 3.6-5.0 MMOL/L Chloride Level 120 H 98-107 MMOL/L Carbon Dioxide Level 19 L 21-32 MMOL/L Anion Gap 15 H 5-14 MMOL/L Blood Urea Nitrogen 45 H 7-18 MG/DL Creatinine 1.61 H 0.60-1.30 MG/DL Estimat Glomerular Filtration Rate 41 BUN/Creatinine Ratio 28 Glucose Level 151 H 70-105 MG/DL Calcium Level 9.2 8.5-10.1 MG/DL Phosphorus Level 2.8 2.3-4.7 MG/DL Magnesium Level 2.4 1.6-2.4 MG/DL Troponin I < 0.028 <0.028 NG/ML Test 07/04/21 05:52 07/04/21 06:30 07/04/21 11:34 Range/Units Blood Gas Puncture Site RT RAD Blood Gas Patient Temperature 37.3 Arterial Blood pH 7.44 H 7.37-7.43 Arterial Blood Partial Pressure CO2 30 L 35-45 MMHG Arterial Blood Partial Pressure O2 87 79-93 MMHG Arterial Blood HCO3 20 L 23-27 MMOL/L Arterial Blood Total CO2 20.7 L 21.0-31.0 MMOL/L Arterial Blood Oxygen Saturation 97 94-100 % Arterial Blood Base Excess -3.6 L -2.5-2.5 MMOL/L Bharath Test YES-POS Blood Gas Ventilator Setting YES Blood Gas Inspired Oxygen 35% Activated Partial Thromboplast Time > 200 *H 24-35 SEC Glucometer 88 70-110 MG/DL Physical Exam Physical Exam Vital Signs Vital Signs - First Documented 07/03/21 07/03/21 07/03/21 07/03/21 13:55 14:10 14:36 14:55 Temp 35.7 Pulse 115 Resp 18 B/P (MAP) 131/106 Pulse Ox 75 O2 Delivery NIV CPAP O2 Flow Rate 15.00 FiO2 100 Capillary Refill : Greater Than 3 Seconds Height, Weight, BMI Height: 5'4.00" Weight: 166lbs. 3.0oz. [id number]; 26.87 BMI Method:Stated General Appearance: Other (Ventilator dependent) Eyes: Bilateral Eye Normal Inspection, Bilateral Eye PERRL, Bilateral Eye EOMI HEENT: Other (ET tube and OG tube in place) Neck: Supple Respiratory: Lungs Clear, Decreased Breath Sounds, Other (left thoravent) Cardiovascular: Systolic Murmur, Tachycardia Gastrointestinal: Normal Bowel Sounds, Soft Rectal: Deferred Genital/Rectal: Other (chase in place) Extremity: No Pedal Edema Neurologic/Psychiatric: Other (sedated) Skin: Warm/Dry A/P-Cardiology Admission Diagnosis Acute respiratory failure Hypotensive shock Lactic acidosis Cardiac pacemaker Assessment/Plan Acute hypoxemic respiratory failure, currently ventilator dependent, being weaned off the ventilator, work-up is in progress, had a chest x-ray showing left lower lobe infiltrate, possible CT scan this afternoon. He was maintained on heparin drip. Continue to monitor Hypotensive shock, probably septic. Received IV fluid resuscitation, was maintained on pressors, currently off all pressors already receiving IV fluid. Continue to monitor Lactic acidosis, secondary to hypoxemia and sepsis. Continue to monitor Chronic persistent atrial fibrillation, has history of sinus node dissection and permanent pacemaker, maintained on telemetry History of intracranial bleed after trauma, history of embolic stroke and hemorrhagic stroke, unable to tolerate long-term oral anticoagulation, had left atrial appendage clip done at in the past. Continue to monitor Permanent pacemaker, generator replaced in April 2020, good sensing and capture activity. Anemia, received blood transfusion on 06/06/2021, continue to monitor History of hypertension, currently normotensive, was initially hypotensive on admission to the hospital. History of seizure disorder. No witnessed seizure activity. Continue to monitor Mild bilateral carotid stenosis, continue to monitor Hyperlipidemia, monitor lipids KEDAR BOYKIN MD Jul 04, 2021 13:03
[2021-07-04] MEDS ORDERED: NS 100 ML (IVPB) BAG IV ONE (13:15)
[2021-07-04] MEDS ORDERED: HOLD METFORMIN - RECEIVED CONTRAST 20 ML VIAL IV SCH (13:15)
[2021-07-04] MEDS ORDERED: IOHEXOL 350 MG/ML 100 ML (OMNIPAQUE 350) VIAL IV ONE (13:15)
[2021-07-04] MEDS ORDERED: CATHETER FLUSH 10 ML SYR IV PRN (13:15)
--- NOTE | 2021-07-04 14:58 | Diagnostic Imaging Report ---
PROCEDURE: CT angiography of the chest with contrast. TECHNIQUE: Multiple contiguous axial images were obtained through the chest after uneventful bolus administration of intravenous contrast. 3D reconstructed CTA MIP acquisitions were also performed. Auto Exposure Controls were utilized during the CT exam to meet ALARA standards for radiation dose reduction. INDICATION: Acute respiratory failure. Comparison is made with prior CT angiogram of the chest from 08/25/2015. There is an endotracheal tube has the tip above the yamini. An NG tube passes into the stomach. A left chest wall cardiac pacer maker is in place. The thoracic aorta is of normal caliber. There is no dissection. Evaluation of pulmonary arterial system is without evidence of thromboembolism. No definite filling defects are seen within central, lobar or segmental branches. There is no pericardial fluid. There is trace right and small left pleural effusion. The patient does have a four vent chest tube on the left. The tip appears to be intraparenchymal within the left upper lobe. There is some surrounding infiltrate or hemorrhage present in the left upper lobe. Patient does have a left-sided pneumothorax. There is some consolidation in bilateral lower lobes, greatest on the left with air bronchograms. Right upper lobe is clear. IMPRESSION: 1. No evidence of pulmonary embolism or thoracic aortic dissection. 2. Trace right and small left pleural effusion. 3. Bibasilar parenchymal consolidation, left greater. 4. The left four vent chest tube does appear to be intraparenchymal in the left upper lobe with some surrounding left upper lobe hemorrhage. There is a small to moderate residual left-sided pneumothorax present. Results called to Dr. Sneed prior to this dictation. Dictated by: Dictated on workstation # [id number]
[2021-07-04] MEDS: VANCOMYCIN 1 GM/NS 250 ML IVPB IV SCH ×2 (16:53)
[2021-07-04] MEDS ORDERED: ENOXAPARIN 30 MG/0.3 ML (LOVENOX) SYR SC SCH (18:00)
[2021-07-04] MEDS: ACETAMINOPHEN 325 MG TABLET PO PRN (19:59)
[2021-07-05] VITALS (28 sets, daily range): BP systolic 87–128; BP diastolic 57–82
[2021-07-05] MEDS: PIPERACILLIN/TAZO 4.5 GM/NS 100 ML IV SCH ×8 (00:47→23:04)
[2021-07-05] MEDS: inSUlin ASPART (NovoLOG) 1 UNIT/0.01 ML (CHARGE PER UNIT) SC SCH ×5 (00:53→23:04)
[2021-07-05] MEDS: LACTATED RINGERS 1,000 ML IV SCH ×4 (02:36→22:13)
[2021-07-05] MEDS: VASOPRESSIN INJECTION 20 UNIT in NS (IVPB) 100 ML IV SCH ×2 (02:36→12:50)
[2021-07-05] MEDS: NOREPINEPHRINE 8 MG/250 ML 250 ML IV SCH ×2 (02:36→19:50)
[2021-07-05] MEDS: RT-ALBUTEROL/IPRATROPIUM 3 ML (DUONEB) VIAL INH SCH ×6 (02:54→22:10)
[2021-07-05 05:13] LABS: ABG BASE EXCESS -3.9 MMOL/L (-2.5-2.5); ABG OXYGEN SATURATION 98 % (94-100); ABG PCO2 24 MMHG (35-45); ABG PH 7.51 (7.37-7.43); ABG PO2 86 MMHG (79-93); ABG TCO2 19.5 MMOL/L (21.0-31.0); BASOPHILS % (AUTO) 0 % (0-10)
[2021-07-05 05:15] LABS: ALLENS TEST YES-POS; EOSINOPHILS % (AUTO) 0 % (0-10); HEMATOCRIT 37 % (40-54); HEMOGLOBIN 11.7 g/dL (13.3-17.7); INSPIRED O2 28%; LYMPHOCYTES # (AUTO) 1.7 10^3/uL (1.0-4.0); LYMPHOCYTES % (AUTO) 12 % (12-44); MEAN CORPUSCULAR HEMOGLOBIN 35 pg (25-34); MEAN CORPUSCULAR HGB CONC 32 g/dL (32-36); MEAN CORPUSCULAR VOLUME 111 fL (80-99); MEAN PLATELET VOLUME 11.9 fL (9.0-12.2); MONOCYTES # (AUTO) 1.2 10^3/uL (0.0-1.0); MONOCYTES % (AUTO) 8 % (0-12); NEUTROPHILS # (AUTO) 10.7 10^3/uL (1.8-7.8); NEUTROPHILS % (AUTO) 78 % (42-75); PATIENT TEMP 36.5; PLATELET COUNT 77 10^3/uL (130-400); VENTILATOR YES; WHITE BLOOD COUNT 13.7 10^3/uL (4.3-11.0)
[2021-07-05 05:26] LABS: POTASSIUM 3.3 MMOL/L (3.6-5.0)
[2021-07-05 05:27] LABS: CALCIUM 8.3 MG/DL (8.5-10.1)
[2021-07-05 05:31] LABS: PHOSPHORUS 2.3 MG/DL (2.3-4.7)
[2021-07-05 05:32] LABS: CREATININE SERUM 0.9 MG/DL (0.60-1.30)
[2021-07-05 05:34] LABS: MAGNESIUM 2.1 MG/DL (1.6-2.4)
[2021-07-05] MEDS: POTASSIUM CL 10MEQ/50ML IVPB 50 ML IV SCH ×5 (05:36→08:05)
[2021-07-05] MEDS: MAGNESIUM 1 GM/100 ML IVPB 100 ML IV SCH (05:36)
[2021-07-05] MEDS: KCL 20 MEQ TAB (K-DUR) PO SCH (05:36)
[2021-07-05] MEDS: 1/2 NS IV SOLUTION 1,000 ML IV SCH ×4 (05:40→23:04)
--- NOTE | 2021-07-05 06:49 | Occ Therapy Progress Note ---
Therapy Progress Note Pt is currently intubated. OT will continue to monitor pt status and initiate treatment when pt is medically stable and able to actively participate in skilled therapy. IRWIN LANCASTER Jul 05, 2021 06:49
--- NOTE | 2021-07-05 06:58 | Consultation - Surgery ---
DEISY RIBEIRO 07/05/21 0658: History of Present Illness History of Present Illness Patient Consulted On(brayden/time) 07/05/21 06:58 Date Seen by Provider: Jul 05, 2021 Time Seen by Provider: 07:50 Reason for Visit: Acute respiratory failure History of Present Illness Salud Adkins presented to ICU for evaluation and management of respiratory distress 2/2 to suspected PNX. Has a Thora-Vent, which is currently placed in the lung parenchyma, as such we are consulted today to coordinate a CT-guided redirection of Thora-Vent wire. Patient is sedated and receiving propofol and epi, nor-epi, and vasopressin. Accompanied by daughter, Bette. Patient has Mclaughlin in place, and has had no BM. Last dose of Lovenox 30 Mg on 07/04/21, and hemoglobin has decreased to 11.7 from 13.9 yesterday (07/04/21). Allergies and Home Medications Allergies Coded Allergies: Cobamamide (Unverified Allergy, Unknown, MEMORY LOSS, 01/18/14) cyanocobalamin (Unverified Allergy, Unknown, MEMORY LOSS, 01/18/14) fentanyl (Verified Allergy, Unknown, 12/08/15) lactose (Verified Allergy, Unknown, 03/03/18) morphine (Verified Allergy, Unknown, Pt has received tramadol in the past, 06/06/21) codeine (Unverified Adverse Reaction, Mild, SICK, 08/23/15) promethazine HCl (Unverified Adverse Reaction, Mild, LOSS OF MEMORY, 04/12/11) hydrocodone (Verified Adverse Reaction, Unknown, 12/08/15) low blood pressure Uncoded Allergies: narcotics (Adverse Reaction, Unknown, 12/08/15) Patient Home Medication List Home Medication List Reviewed: Yes Acetaminophen (Tylenol 8 Hour) 650 Mg Tablet.er, 650 MG PO Q4H PRN for PAIN-MILD (1-4), (Reported) Entered as Reported by: SOFÍA CHICAS on 07/04/21 0941 Last Action: Reviewed Aspirin (Aspirin EC) 81 Mg Tablet.dr, 81 MG PO 1800, (Reported) Entered as Reported by: KIKA SEWELL on 03/03/18 1556 Last Action: Reviewed Bethanechol Chloride (Bethanechol Chloride) 50 Mg Tablet, 50 MG PO 0600,1800, (Reported) Entered as Reported by: JULITO HAJI on 06/05/21830 Last Action: Reviewed Carbidopa/Levodopa (Carbidopa-Levo ER 50-200 Tab) 1 Each Tablet.er, 1 EACH PO 0600,1800, (Reported) Entered as Reported by: JULITO HAJI on 06/05/21834 Last Action: Reviewed Carboxymethylcellulose Sodium (Refresh Contacts) 12 Ml Drops, 1 DROP OU DAILY, (Reported) Entered as Reported by: SOFÍA CHICAS on 07/04/21940 Last Action: Reviewed Cetirizine HCl (Cetirizine HCl) 10 Mg Tablet, 10 MG PO DAILY, (Reported) Entered as Reported by: JULITO HAJI on 06/05/21835 Last Action: Reviewed Cholecalciferol (Vitamin D3) (Vitamin D3) 125 Mcg Tablet, 125 MCG PO DAILY, (Reported) Entered as Reported by: NICK PEOPLES on 04/06/20950 Last Action: Reviewed Divalproex Sodium (Divalproex Sodium) 250 Mg Tablet.dr, 250 MG PO 0600,1800, (Reported) Entered as Reported by: KIKA SEWELL on 03/03/181555 Last Action: Reviewed Ferrous Sulfate (Ferrous Sulfate) 325 Mg Tablet, 325 MG PO DAILY, (Reported) Entered as Reported by: SOFÍA CHICAS on 07/04/21940 Last Action: Reviewed Furosemide (Furosemide) 40 Mg Tablet, 40 MG PO Q48H, (Reported) Entered as Reported by: JULITO HAJI on 06/05/21838 Last Action: Reviewed Metoprolol Succinate (Metoprolol Succinate) 25 Mg Tab.er.24h, 25 MG PO 1600, (Reported) Entered as Reported by: NICK PEOPLES on 04/06/20950 Last Action: Reviewed Ondansetron HCl (Ondansetron HCl) 4 Mg Tablet, 4 MG PO Q4H PRN for NAUSEA/VOMITING-1ST LINE, (Reported) Entered as Reported by: SOFÍA CHICAS on 07/04/21940 Last Action: Reviewed Pantoprazole Sodium (Pantoprazole Sodium) 40 Mg Tablet.dr, 40 MG PO 0600,1800, (Reported) Entered as Reported by: KIKA SEWELL on 7/23/18 1556 Last Action: Reviewed Potassium Chloride (Potassium Chloride) 10 Meq Capsule.er, 10 MEQ PO 0600,1800, (Reported) Entered as Reported by: JULITO HAJI on 06/05/21 0835 Last Action: Reviewed Sennosides/Docusate Sodium (Senna S Tablet) 1 Each Tablet, 1 EACH PO 0600,1800, (Reported) Entered as Reported by: SOFÍA CHICAS on 07/04/21 09 Last Action: Reviewed Sertraline HCl (Sertraline HCl) 25 Mg Tablet, 25 MG PO 1800, (Reported) Entered as Reported by: KIKA SEWELL on 03/03/18 1611 Last Action: Reviewed Tamsulosin HCl (Flomax) 0.4 Mg Cap, 0.4 MG PO 1800, (Reported) Entered as Reported by: NICK PEOPLES on 04/06/20 0951 Last Action: Reviewed Tramadol HCl (Tramadol HCl) 50 Mg Tablet, 50 MG PO Q6H PRN for PAIN-MODERATE (5- 7), (Reported) Entered as Reported by: SOFÍA CHICAS on 07/04/21940 Last Action: Reviewed Discontinued Medications Acetaminophen (Acetaminophen) 325 Mg Tablet, 650 MG PO Q4H PRN for PAIN-MILD (1- 4) Discontinued Reason: No Longer Taking Prescribed by: NAPOLEON SNEED on 06/09/211057 Last Action: Discontinued Ferrous Sulfate, Dried (Ferrous Sulfate) 500 Gm Powder, 500 GM MC DAILY Discontinued Reason: Duplicate Order Prescribed by: NAPOLEON SNEED on 06/09/211057 Last Action: Discontinued Polyvinyl Alcohol/Povidone/Pf (Refresh Classic Eye Drops) 1 Each Droperette, 1 EACH OP DAILY PRN for DRY EYES, (Reported) Discontinued Reason: Duplicate Order Entered as Reported by: JULITO HAJI on 06/05/21 0837 Last Action: Discontinued Sennosides (Senokot) 8.6 Mg Tablet, 8.6 MG PO BID Discontinued Reason: Duplicate Order Prescribed by: NAPOLEON SNEED on 06/09/211057 Last Action: Discontinued Tramadol HCl (Tramadol HCl) 50 Mg Tablet, 50 MG PO QID PRN for PAIN-MODERATE (5- 7) Discontinued Reason: Duplicate Order Prescribed by: NAPOLEON SNEED on 06/09/21 1100 Last Action: Discontinued Past Sgkbtkc-Bxxrep-Fmgjzn Hx Patient Social History Smoking Status: Unknown if Ever Smoked Former Smoker, Quit: December 10, 1986 Type Used: Cigarettes Recent Hopitalizations: No Alcohol Use?: Unable to obtain Have you traveled recently?: No Immunizations Up To Date Tetanus Booster (TDap): Unknown Date of Pneumonia Vaccine: May 17, 2019 Date of Influenza Vaccine: May 12, 2019 Seasonal Allergies Seasonal Allergies: No Surgeries History of Surgeries: Yes Surgeries: Abdominal, Amputation, Eye Surgery, Joint Replacement, Orthopedic, Pacemaker Respiratory History of Respiratory Disorde: Yes Respiratory Disorders: Asthma Cardiovascular History of Cardiac Disorders: Yes (PACEMAKER; ATRIAL CLIP PROCEDURE) Cardiac Disorders: Hypertension Neurological History of Neurological Disord: Yes (CVA WITH LEFT SIDE WEAKNESS, DYSPHAGIA, AND POOR COORDINATION) Neurological Disorders: Parkinson's Disease, Stroke Reproductive System Hx Reproductive Disorders: No Sexually Transmitted Disease: No HIV/AIDS: No Genitourinary History of Genitourinary Disor: Yes Genitourinary Disorders: Benign Prostatic Hyperpl, Prostate Problems, Kidney Stones Gastrointestinal History of Gastrointestinal Di: Yes (LACTOSE INTOLERANT; HIATAL AND UMBILICAL HERNIA REPAIRS) Gastrointestinal Disorders: Abdominal Hernia, Chronic Constipation, Hiatal Hernia, Ulcer Musculoskeletal History of Musculoskeletal Dis: Yes Musculoskeletal Disorders: Degenerate Disk Disease, Arthritis, Chronic Back Pain, Fractures Endocrine History of Endocrine Disorders: No HEENT History of HEENT Disorders: Yes (DYSPHAGIA FROM CVA; CATARACTS/LENS IMPLANTS) HEENT Disorders: Cataract Hearing Impairment: Denies Cancer History of Cancer: No Psychosocial 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) Behavioral Health Disorders: Depression Integumentary History of Skin or Integumenta: Yes (RASH IN SUMMER AT TIMES) Skin/Integumentary Disorders: Pruritis Blood Transfusions History of Blood Disorders: No Adverse Reaction to a Blood Tr: No Family Medical History Family Medial History: Cancer G8 BROTHER G8 BROTHER G8 SISTER Cancer of colon G8 BROTHER Cataract 19 FATHER Congestive heart failure 19 FATHER Family history: Allergy DAUGHTER Family history: Alzheimer's disease 19 FATHER Family history: Breast disease G8 SISTER No Family History of: Abdominal aortic aneurysm [place]'s disease Alcoholism Aphasia Chest pain Congenital heart disease Cystic fibrosis Dementia Dysphagia Family history: Arthritis Family history: Asthma Family history: Cardiovascular disease Family history: Coronary thrombosis Family history: Diabetes mellitus Family history: Gastrointestinal disease Family history: Glaucoma Family history: Hypertension Family history: Osteoporosis Family history: Thyroid disorder Headache Hearing loss Heart disease Hereditary disease History of - anemia History of - disorder History of - respiratory disease History of drug abuse Human immunodeficiency virus (HIV) seropositivity Hypercholesterolemia Infertile Kidney disease Malignant neoplasm of lung Myocardial infarction Parkinson's disease Prostate cancer Psychotic disorder Seizure disorder Stroke Tuberculosis Visual impairment Review of Systems-General ROS-Unable to Obtain: Patient sedated Physical Exam-General Problems Physical Exam Vital Signs Vital Signs - First Documented 07/03/21 07/03/21 07/03/21 07/03/21 13:55 14:10 14:36 14:55 Temp 35.7 Pulse 115 Resp 18 B/P (MAP) 131/106 Pulse Ox 75 O2 Delivery NIV CPAP O2 Flow Rate 15.00 FiO2 100 Capillary Refill : Greater Than 3 Seconds General Appearance: WD/WN, no apparent distress Neck: supple, normal inspection Respiratory: chest non-tender (Intubated), no accessory muscle use Cardiovascular: regular rate, rhythm, no edema Gastrointestinal: non tender, soft Data Review Labs Laboratory Tests 07/04/21 11:34: Glucometer 88 07/04/21 17:31: Glucometer 77 07/05/21 00:49: Glucometer 123H 07/05/21 05:00: White Blood Count 13.7H, Red Blood Count 3.34L, Hemoglobin 11.7L, Hematocrit 37L , Mean Corpuscular Volume 111H, Mean Corpuscular Hemoglobin 35H, Mean Corpuscular Hemoglobin Concent 32, Red Cell Distribution Width 16.5H, Platelet Count 77L, Mean Platelet Volume 11.9, Immature Granulocyte % (Auto) 1, Neutrophils (%) (Auto) 78H, Lymphocytes (%) (Auto) 12, Monocytes (%) (Auto) 8, Eosinophils (%) (Auto) 0, Basophils (%) (Auto) 0, Neutrophils # (Auto) 10.7H, Lymphocytes # (Auto) 1.7, Monocytes # (Auto) 1.2H, Eosinophils # (Auto) 0.0, Basophils # (Auto) 0.0, Immature Granulocyte # (Auto) 0.1, Percent Immature Platelet Fraction 5.6, Blood Gas Puncture Site RR, Blood Gas Patient Temperature 36.5, Arterial Blood pH 7.51H, Arterial Blood Partial Pressure CO2 24L, Arterial Blood Partial Pressure O2 86, Arterial Blood HCO3 19L, Arterial Blood Total CO2 19.5L, Arterial Blood Oxygen Saturation 98, Arterial Blood Base Excess -3.9L, Bharath Test YES-POS, Blood Gas Ventilator Setting YES, Blood Gas Inspired Oxygen 28%, Sodium Level 145, Potassium Level 3.3L, Chloride Level 116H, Carbon Dioxide Level 18L, Anion Gap 11, Blood Urea Nitrogen 26H, Creatinine 0.90, Estimat Glomerular Filtration Rate 81, BUN/Creatinine Ratio 29, Glucose Level 125H, Calcium Level 8.3L, Phosphorus Level 2.3, Magnesium Level 2.1 Microbiology 07/03/21 Gram Stain - Final, Resulted 07/03/21 Sputum Culture - Preliminary, Resulted Usual upper respiratory salma 07/03/21 Blood Culture - Preliminary, Resulted No growth 07/03/21 Urine Culture - Final, Complete 3 or more isolates Radiology [facility]. [place], [place] NAME: SALUD ADKINS [facility] REC#: [id number] PT STATUS: ADM IN : 1935 PHYSICIAN: NAPOLEON SNEED DO ADMIT DATE: 07/03/21/ICU Signed Date of Exam:07/04/21 CT ANGIO CHEST W PROCEDURE: CT angiography of the chest with contrast. TECHNIQUE: Multiple contiguous axial images were obtained through the chest after uneventful bolus administration of intravenous contrast. 3D reconstructed CTA MIP acquisitions were also performed. Auto Exposure Controls were utilized during the CT exam to meet ALARA standards for radiation dose reduction. INDICATION: Acute respiratory failure. Comparison is made with prior CT angiogram of the chest from 08/25/2015. There is an endotracheal tube has the tip above the yamini. An NG tube passes into the stomach. A left chest wall cardiac pacer maker is in place. The thoracic aorta is of normal caliber. There is no dissection. Evaluation of pulmonary arterial system is without evidence of thromboembolism. No definite filling defects are seen within central, lobar or segmental branches. There is no pericardial fluid. There is trace right and small left pleural effusion. The patient does have a four vent chest tube on the left. The tip appears to be intraparenchymal within the left upper lobe. There is some surrounding infiltrate or hemorrhage present in the left upper lobe. Patient does have a left-sided pneumothorax. There is some consolidation in bilateral lower lobes, greatest on the left with air bronchograms. Right upper lobe is clear. IMPRESSION: 1. No evidence of pulmonary embolism or thoracic aortic dissection. 2. Trace right and small left pleural effusion. 3. Bibasilar parenchymal consolidation, left greater. 4. The left four vent chest tube does appear to be intraparenchymal in the left upper lobe with some surrounding left upper lobe hemorrhage. There is a small to moderate residual left-sided pneumothorax present. Results called to Dr. Sneed prior to this dictation. Dictated by: Dictated on workstation # [id number] Dict: 07/04/21 1447 Trans: 07/04/211755 [facility] [id number] Interpreted by: ROSLYN BRUNO MD Electronically signed by: ROSLYN BRUNO MD 07/04/211755 Assessment/Plan Assessment/Plan Assessment/Plan 1. Acute Respiratory Failure--sedated on ventilator but FiO2 down to 35%, pulmonology consulted, WBC still 20,000 and CXR shows possible infiltrate in left base, will change V/Q scan to CT angiogram since Cr down to 1.7, on pr otonix for GI prophylaxis and on heparin drip until PE ruled out, continue broad spectrum antibiotics 2. Pneumothorax -CT-guided reposition of thora-vent into chest cavity -Discussed with daughter that depending if not able to redirect thora-vent, may consider chest tube 3. Hypovolemic/Septic Shock--still on low dose norepinephrine--should be able to wean off of that today, continue with IVFs 4. Acute Renal Failure--CR down to 1.7 today after aggressive IVFs 5. 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 History of Previous Hemorrhagic Stroke with Mcc Deficits 7. Parkinson's--treated with sinemet 8. Recent Right hip fracture with surgery SUNNY BALDWIN DO 07/05/211815: History of Present Illness History of Present Illness History of Present Illness Patient 85-year-old male who presented to the hospital and admitted to the ICU for respiratory distress he was suspected to have a pneumothorax that was under tension. He had a Thora vent placed in left chest. The patient is currently intubated and unable to provide any information. Patient with Thora vent catheter placed into the parenchyma of the left lung which was demonstrated by the CT scan. Allergies and Home Medications Allergies Coded Allergies: Cobamamide (Unverified Allergy, Unknown, MEMORY LOSS, 01/18/14) cyanocobalamin (Unverified Allergy, Unknown, MEMORY LOSS, 01/18/14) fentanyl (Verified Allergy, Unknown, 12/08/15) lactose (Verified Allergy, Unknown, 03/03/18) morphine (Verified Allergy, Unknown, Pt has received tramadol in the past, 06/06/21) codeine (Unverified Adverse Reaction, Mild, SICK, 08/23/15) promethazine HCl (Unverified Adverse Reaction, Mild, LOSS OF MEMORY, 04/12/11) hydrocodone (Verified Adverse Reaction, Unknown, 12/08/15) low blood pressure Uncoded Allergies: narcotics (Adverse Reaction, Unknown, 12/08/15) Patient Home Medication List Home Medication List Reviewed: Yes Acetaminophen (Tylenol 8 Hour) 650 Mg Tablet.er, 650 MG PO Q4H PRN for PAIN-MILD (1-4), (Reported) Entered as Reported by: SOFÍA CHICAS on 07/04/21940 Last Action: Reviewed Aspirin (Aspirin EC) 81 Mg Tablet.dr, 81 MG PO 1800, (Reported) Entered as Reported by: KIKA SEWELL on 03/03/18 1556 Last Action: Reviewed Bethanechol Chloride (Bethanechol Chloride) 50 Mg Tablet, 50 MG PO 0600,1800, (Reported) Entered as Reported by: JULITO HAJI on 06/05/21 0831 Last Action: Reviewed Carbidopa/Levodopa (Carbidopa-Levo ER 50-200 Tab) 1 Each Tablet.er, 1 EACH PO 0600,1800, (Reported) Entered as Reported by: JULITO HAJI on 06/05/21 0835 Last Action: Reviewed Carboxymethylcellulose Sodium (Refresh Contacts) 12 Ml Drops, 1 DROP OU DAILY, (Reported) Entered as Reported by: SOFÍA CHICAS on 07/04/21940 Last Action: Reviewed Cetirizine HCl (Cetirizine HCl) 10 Mg Tablet, 10 MG PO DAILY, (Reported) Entered as Reported by: JULITO HAJI on 06/05/21 0836 Last Action: Reviewed Cholecalciferol (Vitamin D3) (Vitamin D3) 125 Mcg Tablet, 125 MCG PO DAILY, (Reported) Entered as Reported by: NICK PEOPLES on 04/06/20950 Last Action: Reviewed Divalproex Sodium (Divalproex Sodium) 250 Mg Tablet.dr, 250 MG PO 0600,1800, (Reported) Entered as Reported by: KIKA SEWELL on 03/03/181555 Last Action: Reviewed Ferrous Sulfate (Ferrous Sulfate) 325 Mg Tablet, 325 MG PO DAILY, (Reported) Entered as Reported by: SOFÍA CHICAS on 07/04/21940 Last Action: Reviewed Furosemide (Furosemide) 40 Mg Tablet, 40 MG PO Q48H, (Reported) Entered as Reported by: JULITO HAJI on 06/05/21838 Last Action: Reviewed Metoprolol Succinate (Metoprolol Succinate) 25 Mg Tab.er.24h, 25 MG PO 1600, (Reported) Entered as Reported by: NICK PEOPLES on 04/06/20950 Last Action: Reviewed Ondansetron HCl (Ondansetron HCl) 4 Mg Tablet, 4 MG PO Q4H PRN for NAUSEA/VOMITING-1ST LINE, (Reported) Entered as Reported by: SOFÍA CHICAS on 07/04/21940 Last Action: Reviewed Pantoprazole Sodium (Pantoprazole Sodium) 40 Mg Tablet.dr, 40 MG PO 0600,1800, (Reported) Entered as Reported by: KIKA SEWELL on 03/03/181555 Last Action: Reviewed Potassium Chloride (Potassium Chloride) 10 Meq Capsule.er, 10 MEQ PO 0600,1800, (Reported) Entered as Reported by: JULITO HAJI on 06/05/21834 Last Action: Reviewed Sennosides/Docusate Sodium (Senna S Tablet) 1 Each Tablet, 1 EACH PO 0600,1800, (Reported) Entered as Reported by: SOFÍA CHICAS on 07/04/21940 Last Action: Reviewed Sertraline HCl (Sertraline HCl) 25 Mg Tablet, 25 MG PO 1800, (Reported) Entered as Reported by: KIKA SEWELL on 03/03/18 161 Last Action: Reviewed Tamsulosin HCl (Flomax) 0.4 Mg Cap, 0.4 MG PO 1800, (Reported) Entered as Reported by: NICK PEOPLES on 04/06/20950 Last Action: Reviewed Tramadol HCl (Tramadol HCl) 50 Mg Tablet, 50 MG PO Q6H PRN for PAIN-MODERATE (5- 7), (Reported) Entered as Reported by: SOFÍA CHICAS on 07/04/21 0941 Last Action: Reviewed Discontinued Medications Acetaminophen (Acetaminophen) 325 Mg Tablet, 650 MG PO Q4H PRN for PAIN-MILD (1- 4) Discontinued Reason: No Longer Taking Prescribed by: NAPOLEON SNEED on 06/09/21 1058 Last Action: Discontinued Ferrous Sulfate, Dried (Ferrous Sulfate) 500 Gm Powder, 500 GM MC DAILY Discontinued Reason: Duplicate Order Prescribed by: NAPOLEON SNEED on 06/09/21 1058 Last Action: Discontinued Polyvinyl Alcohol/Povidone/Pf (Refresh Classic Eye Drops) 1 Each Droperette, 1 EACH OP DAILY PRN for DRY EYES, (Reported) Discontinued Reason: Duplicate Order Entered as Reported by: JULITO HAJI on 06/05/21 0837 Last Action: Discontinued Sennosides (Senokot) 8.6 Mg Tablet, 8.6 MG PO BID Discontinued Reason: Duplicate Order Prescribed by: NAPOLEON SNEED on 06/09/21 105 Last Action: Discontinued Tramadol HCl (Tramadol HCl) 50 Mg Tablet, 50 MG PO QID PRN for PAIN-MODERATE (5- 7) Discontinued Reason: Duplicate Order Prescribed by: NAPOLEON SNEED on 06/09/21 1100 Last Action: Discontinued Past Youuaxp-Xhkhht-Psrtqo Hx Reviewed Nursing Assessment Reviewed/Agree w Nursing PMH: Yes Family Medical History Significant Family History: No Pertinent Family Hx Family Medial History: Cancer G8 BROTHER G8 BROTHER G8 SISTER Cancer of colon G8 BROTHER Cataract 19 FATHER Congestive heart failure 19 FATHER Family history: Allergy DAUGHTER Family history: Alzheimer's disease 19 FATHER Family history: Breast disease G8 SISTER No Family History of: Abdominal aortic aneurysm [place]'s disease Alcoholism Aphasia Chest pain Congenital heart disease Cystic fibrosis Dementia Dysphagia Family history: Arthritis Family history: Asthma Family history: Cardiovascular disease Family history: Coronary thrombosis Family history: Diabetes mellitus Family history: Gastrointestinal disease Family history: Glaucoma Family history: Hypertension Family history: Osteoporosis Family history: Thyroid disorder Headache Hearing loss Heart disease Hereditary disease History of - anemia History of - disorder History of - respiratory disease History of drug abuse Human immunodeficiency virus (HIV) seropositivity Hypercholesterolemia Infertile Kidney disease Malignant neoplasm of lung Myocardial infarction Parkinson's disease Prostate cancer Psychotic disorder Seizure disorder Stroke Tuberculosis Visual impairment Review of Systems-General ROS-Unable to Obtain: Unable to provide due to intubated Physical Exam-General Problems Physical Exam General Appearance: WD/WN, other (Intubated and sedated) HEENT: PERRL/EOMI, normal ENT inspection Neck: non-tender, supple Respiratory: no accessory muscle use, other (Thora vent left anterior chest, equal chest rise) Cardiovascular: regular rate, rhythm, no JVD Gastrointestinal: soft, no organomegaly Rectal: deferred Back: normal inspection Extremities: normal inspection, no pedal edema Neurologic/Psychiatric: No alert, No oriented x 3; other (Intubated and sedated) Skin: normal color, warm/dry Lymphatic: no adenopathy Assessment/Plan Assessment/Plan Assessment/Plan Acute respiratory failure intubated and sedated currently. Patient with left pneumothorax with Thora vent catheter into the parenchyma of the left lung, hypovolemic/septic shock, acute renal failure Patient is a 85-year-old male who went to acute respiratory failure. Currently on ventilator. He had questionable left tension pneumothorax upon presentation to the ER so a Thora vent was placed. This on CT demonstrated a going through the parenchyma of the lung on the left and also with pneumothorax surrounding. I reviewed the CAT scan last night demonstrating this and patient remained intubated and sedated overnight. I discussed with the daughter this morning about repositioning the catheter or removing under CT guidance. I discussed this with Dr. Bruno who also agrees with plan. If has to be removed and new tube may need to be placed. If not replaced will need close monitoring. Patient daughter present and agrees with plan. Supervisory-Addendum Brief Verification & Attestation Participated in pt care: history, MDM, physical Personally performed: exam, history, MDM, supervision of care Care discussed with: Medical Student Procedures: n/a Results interpretation: Verified all documentation Verification and Attestation of Medical Student E/M Service A medical student performed and documented this service in my presence. I reviewed and verified all information documented by the medical student and made modifications to such information, when appropriate. I personally performed the physical exam and medical decision making. Sunny Baldwin, Jul 05, 2021,18:17 DEISY RIBEIRO Jul 05, 2021 06:58 SUNNY BALDWIN DO Jul 05, 2021 18:16
[2021-07-05] MEDS: PANTOPRAZOLE 40 MG (PROTONIX) VIAL IV SCH (08:05)
--- NOTE | 2021-07-05 08:35 | Physical Therapy Progress Note ---
Therapy Progress Note Patient currently sedated and intubated. PT will monitor patient status and initiate treatment when patient is able to actively participate with skilled PT. KAJAL DYE PT Jul 05, 2021 08:35
--- NOTE | 2021-07-05 09:02 | Cardiology Progress Note ---
Subjective Date Seen by Provider: Jul 05, 2021 Time Seen by Provider: 08:57 Subjective/Events-last exam Patient sedated and intubated. Review of Systems General: Other (Unable to provide review of system) Focused Exam Lactate Level 07/03/21 18:53: Lactic Acid Level 4.47*H 07/03/21 21:35: Lactic Acid Level 3.15*H 07/03/21 23:51: Lactic Acid Level 3.85*H Time of Focused Exam: 15:58 Objective-Cardiology Exam Last Set of Vital Signs Vital Signs 07/05/21 07/05/21 07/05/21 07/05/21 06:00 11:59 12:00 12:35 Temp 36.6 Pulse 90 Resp 18 B/P (MAP) 108/70 (83) Pulse Ox 95 O2 Delivery Mechanical Ventilator O2 Flow Rate 28.00 FiO2 28 I&O Intake and Output 07/05/21 00:00 Intake Total 1565 ml Output Total 950 ml Balance 615 ml Intake Oral 50 ml IV Total 1350 ml Tube Feeding 40 ml Other 125 ml Output Urine Total 950 ml General: No Acute Distress, Other (Sedated and intubated) Neck: Supple, No JVD Lungs: Other (bilat rhonchi) Heart: Regular Rate, Normal S1, Normal S2 Abdomen: Soft, No Tenderness Extremities: No Edema Skin: No Rashes, No Significant Lesion Neuro: Other (Sedated and intubated) Psych/Mental Status: Other (Sedated and intubated) Results Lab Laboratory Tests 07/05/21 05:00 A/P-Cardiology Admission Diagnosis Acute respiratory failure Hypotensive shock Lactic acidosis Cardiac pacemaker Assessment/Plan Acute hypoxemic respiratory failure, currently ventilator dependent, CT chest showed bibasilar parenchymal consolidation, left greater. The left four vent chest tube does appear to be intraparenchymal in the left upper lobe with some surrounding left upper lobe hemorrhage. There is a small to moderate residual left-sided pneumothorax present. Dr. Forde was consulted, planning for CT- guided reposition of thora-vent into chest cavity Hypotensive shock, probably septic. Received IV fluid resuscitation, was maintained on pressors, currently off all pressors already receiving IV fluid. Continue to monitor Lactic acidosis, secondary to hypoxemia and sepsis. Continue to monitor Chronic persistent atrial fibrillation, has history of sinus node dysfunction and permanent pacemaker, maintained on telemetry History of intracranial bleed after trauma, history of embolic stroke and hemorrhagic stroke, unable to tolerate long-term oral anticoagulation, had left atrial appendage clip done at in the past. Continue to monitor Permanent pacemaker, generator replaced in April 2020, good sensing and capture activity. Anemia, received blood transfusion on 06/06/2021, continue to monitor History of hypertension, currently normotensive, was initially hypotensive on admission to the hospital. History of seizure disorder. No witnessed seizure activity. Continue to monitor Mild bilateral carotid stenosis, continue to monitor Hyperlipidemia, monitor lipids Supervisory-Addendum Brief Supervisory Addendum Participated in pt care: history, MDM, physical Personally performed: exam, history, MDM Care discussed with: ALBINO Results interpretation: Verified all documentation Notes: Patient was seen and evaluated with Tg, examination performed, management plan was discussed, agree with the current scribed note, I made few changes to the note using Italic font Patient was seen at bedside, sedated and intubated Visited with his daughter, examination did not show any changes Questionable pneumothorax, his chest tube was removed without complication He is still on sedation with low-dose Levophed, discussed starting weaning trial again Continue to monitor blood pressure TG MESSINA Jul 05, 2021 09:02 KEDAR BOYKIN MD Jul 05, 2021 14:46
[2021-07-05] MEDS ORDERED: MIDAZOLAM 2 MG/2 ML (VERSED) VIAL IVP ONE (10:15)
[2021-07-05] MEDS ORDERED: LIDOCAINE 1% INJ 20 ML 20 ML VIAL INJ ONE (10:15)
--- NOTE | 2021-07-05 10:47 | Tele-ICU Progress Note ---
Subjective Date Seen by a Provider: Jul 05, 2021 Time Seen by a Provider: 10:46 Sepsis Event Evaluation Height, Weight, BMI Height: 5'4.00" Weight: 166lbs. 3.0oz. [id number]; 26.87 BMI Method:Stated Focused Exam Lactate Level 07/03/21 18:53: Lactic Acid Level 4.47*H 07/03/21 21:35: Lactic Acid Level 3.15*H 07/03/21 23:51: Lactic Acid Level 3.85*H Time of Focused Exam: 15:58 Exam Exam Patient acknowledged, consented, and participated in this virtual visit which was conducted using real time audio/video Vital Signs Date Time Temp Pulse Resp B/P (MAP) Pulse Ox O2 Delivery O2 Flow Rate FiO2 07/05/21 07:01 79 18 97 28 07/05/21 06:00 36.6 90 17 108/70 (83) 98 Mechanical Ventilator 28.00 07/05/21 05:00 36.5 89 18 123/82 (96) 97 Mechanical Ventilator 28.00 07/05/21 04:33 Mechanical Ventilator 28.00 07/05/21 04:00 36.4 89 17 102/68 (79) 96 Mechanical Ventilator 28.00 07/05/21 03:00 36.4 89 18 105/67 (80) 97 Mechanical Ventilator 28.00 07/05/21 02:54 89 18 97 28 07/05/21 02:00 36.3 89 17 107/69 (82) 99 Mechanical Ventilator 28.00 07/05/21 01:00 89 07/05/21 01:00 36.4 89 18 98/82 (87) 98 Mechanical Ventilator 28.00 07/05/21 00:41 Mechanical Ventilator 28.00 07/04/21 23:42 97/65 07/04/21 23:00 36.9 89 17 102/69 (80) 98 Mechanical Ventilator 28.00 07/04/21 22:21 72 18 97 28 07/04/21 22:15 37.0 73 17 107/81 (90) 97 Mechanical Ventilator 28.00 07/04/21 21:15 37.2 89 18 105/64 (78) 97 Mechanical Ventilator 28.00 07/04/21 20:00 37.8 85 17 117/72 (87) 97 Mechanical Ventilator 28.00 07/04/21 20:00 Mechanical Ventilator 28.00 99 07/04/21 19:49 37.8 80 18 106/71 (83) 98 Mechanical Ventilator 28.00 07/04/21 19:15 37.8 89 18 107/72 (84) 99 Mechanical Ventilator 30.00 07/04/21 19:00 89 07/04/21 18:30 37.8 87 17 90/63 (75) 99 Mechanical Ventilator 35.00 07/04/21 18:15 37.7 89 17 76/54 (63) 100 Mechanical Ventilator 35.00 07/04/21 18:14 89 18 99 30 07/04/21 18:00 37.7 92 18 80/56 (68) 99 Mechanical Ventilator 35.00 07/04/21 17:47 90 112/66 07/04/21 17:00 37.5 97 17 86/62 (71) 99 Mechanical Ventilator 35.00 07/04/21 16:00 37.5 113/71 (88) 07/04/21 16:00 Mechanical Ventilator 30.00 97 07/04/21 15:48 37.4 101 17 99 Mechanical Ventilator 35.00 07/04/21 15:45 37.4 112/71 (91) 07/04/21 15:33 37.3 98 17 98 Mechanical Ventilator 35.00 07/04/21 15:30 37.3 105/70 (80) 07/04/21 15:18 37.2 101 18 98 Mechanical Ventilator 35.00 07/04/21 15:15 37.2 101 18 104/68 (82) 98 Mechanical Ventilator 35.00 07/04/21 15:03 37.1 105 18 98 Mechanical Ventilator 35.00 07/04/21 15:00 37.1 104 17 94/64 (73) 98 Mechanical Ventilator 35.00 07/04/21 14:45 37 106 17 112/71 (87) 98 Mechanical Ventilator 35.00 07/04/21 14:03 38 105 17 97 Mechanical Ventilator 35.00 07/04/21 14:00 38 105 18 97/68 (90) 98 Mechanical Ventilator 35.00 07/04/21 13:59 104 18 98 30 07/04/21 13:48 38 07/04/21 13:45 38 110 17 131/85 (98) 97 Mechanical Ventilator 35.00 07/04/21 13:33 38 109 17 97 Mechanical Ventilator 35.00 07/04/21 13:30 38 112/72 (87) 07/04/21 13:18 38 107 17 98 Mechanical Ventilator 35.00 07/04/21 13:15 38 109/69 (83) 07/04/21 13:03 38 107 17 98 Mechanical Ventilator 35.00 07/04/21 12:56 111 07/04/21 12:00 Mechanical Ventilator 35.00 98 07/04/21 11:15 37.8 125/84 (102) Mechanical Ventilator 35.00 07/04/21 11:14 37.8 115 18 97 Mechanical Ventilator 35.00 07/04/21 11:00 37.8 107 18 106/72 (94) 96 Mechanical Ventilator 35.00 07/04/21 10:59 37.8 112 18 96 Mechanical Ventilator 35.00 I & O 07/05/21 07:00 Intake Total 585 ml Output Total 1010 ml Balance -425 ml Height & Weight Height: 5'4.00" Weight: 166lbs. 3.0oz. [id number]; 26.87 BMI Method:Stated General Appearance: Other (Ventilator dependent) HEENT: Other (ET tube and OG tube in place) Neck: Supple Respiratory: Lungs Clear, Decreased Breath Sounds, Other (left thoravent) Cardiovascular: Systolic Murmur, Tachycardia Capillary Refill: Greater Than 3 Seconds Peripheral Pulses: 2+ Radial Pulses (R), 2+ Radial Pulses (L) Gastrointestinal: non tender, soft Extremity: No Pedal Edema Neurologic/Psychiatric: Other (sedated) Skin: Warm/Dry Results Lab Laboratory Tests 07/03/21 14:00 07/03/21 15:06 07/03/21 18:53 07/04/21 05:47 07/05/21 05:00 Assessment/Plan Assessment/Plan (Tele-ICU Physician , Progress Note ) Available chart/ vitals / labs / Images reviewed Video assessment done using teleICU camera, rest of exam as per RN Discussed with RN , EXAM PER RN Events overnight : back on propofol an dpressors Afebrile FiO2 - 35% I/O = pos 600 Drips: Pressors: LEVO hemodynamically stable VENT SETTINGS and ABG reviewed possible candidate for SBT today REVIEWED Cardiovascular Stability / Sedation Score / FI02/PEEP / ABG / CXR Consultants: shan INGRAM Hospital course: -07/03- acute resp distress- intubated in ER, Thoravent LEFT in ER 07/03 for ansence of air entry on left 07/04 - off heparin , neg w/up for PE/DVT A/P Acute respiratory failure , hypoxic- - etiology is not clear - ? aspiration , off heparin , neg w/up for PE/DVT , ? seizure , pain meds ?, dehydration -Intubated 07/03 - on 35 % + 5 now WILL DECREASE SEDATION - ASSESS FOR EXTUBATION LATTER TODAY ( post procedure shock- ? etiology - possible Infection - ? aspiration VS HYPOVOLEMIA - seems sensitive to effect of propofol - back on levo with resuming propofol - cont fluid resucitation S/p Thoravent LEFT in ER 07/03 for absence of air entry on left - PTX was presumed , but exam can be explaind by chronicly paralised left hemidiapfragm - on CT thoravent placed in parenchima with residual PTX - will be replaced today by Sx LUZ MARINA - with elevated NA and Hb - most likely dehydration , prerenal - cont hydration , IMPROVING - change IVF to 1/2 ns Leukocytosis - cont empiric abx - cx pending A fib , chronic , s/p pacemaker - off AC with reported hematoma / bleed post op - as per chart : embolic stroke and hemorrhagic stroke, unable to tolerate oral anticoagulation Recent Right hip fracture - s/p sx June 05, 2021 History of seizure disorder as per notes - on valproic acid PO - TO RESUME history of CVA with residual deficits, Parkinson's Acute on Chronic Anemia--S/P transfusion postoperatively Lines : RIGHT IJ 07/03 (Central Line Necessity Reviewed) Mclaughlin: + OG: Nutrition: tf to satrt if not extubated Analgesia: Anxiety/ delirium VTE Prophylaxis: SCD - to resume LOVENOX WHEN OK WITH SX Stress Ulcer Prophylaxis: PPI Glycemic Control: Plans in collaboration with bedside consultants and IM MDs. Discussed with RN to reach out if any questions or concerns A total of 35 minutes of critical care time was devoted to this patient today, required to treat and/or prevent further deterioration of critical care condition ( as above ) . JENNA HERRERA MD Jul 05, 2021 10:47
--- NOTE | 2021-07-05 12:52 | Progress Note ---
Subjective Date Seen by a Provider: Jul 05, 2021 Time Seen by a Provider: 12:46 Subjective/Events-last exam Fwup acute respiratory failure, hypovolemic/septic shock, acute renal failure, Hx of atrial fibrillation, recent right hip fracture, parkinson's, Hx. of hemorrhagic stroke with residual. Still sedated on ventilator. Thoravent pulled this morning and so far has not needed chest tube. Focused Exam Lactate Level 07/03/21 18:53: Lactic Acid Level 4.47*H 07/03/21 21:35: Lactic Acid Level 3.15*H 07/03/21 23:51: Lactic Acid Level 3.85*H Time of Focused Exam: 15:58 Objective Exam Vital Signs Date Time Temp Pulse Resp B/P (MAP) Pulse Ox O2 Delivery O2 Flow Rate FiO2 07/05/21 12:35 90 07/05/21 11:59 90 18 95 28 07/05/21 08:00 Mechanical Ventilator 28.00 07/05/21 07:01 79 18 97 28 07/05/21 06:00 36.6 90 17 108/70 (83) 98 Mechanical Ventilator 28.00 07/05/21 05:00 36.5 89 18 123/82 (96) 97 Mechanical Ventilator 28.00 07/05/21 04:33 Mechanical Ventilator 28.00 07/05/21 04:00 36.4 89 17 102/68 (79) 96 Mechanical Ventilator 28.00 07/05/21 03:00 36.4 89 18 105/67 (80) 97 Mechanical Ventilator 28.00 07/05/21 02:54 89 18 97 28 07/05/21 02:00 36.3 89 17 107/69 (82) 99 Mechanical Ventilator 28.00 07/05/21 01:00 89 07/05/21 01:00 36.4 89 18 98/82 (87) 98 Mechanical Ventilator 28.00 07/05/21 00:41 Mechanical Ventilator 28.00 07/04/21 23:42 97/65 07/04/21 23:00 36.9 89 17 102/69 (80) 98 Mechanical Ventilator 28.00 07/04/21 22:21 72 18 97 28 07/04/21 22:15 37.0 73 17 107/81 (90) 97 Mechanical Ventilator 28.00 07/04/21 21:15 37.2 89 18 105/64 (78) 97 Mechanical Ventilator 28.00 07/04/21 20:00 37.8 85 17 117/72 (87) 97 Mechanical Ventilator 28.00 07/04/21 20:00 Mechanical Ventilator 28.00 99 07/04/21 19:49 37.8 80 18 106/71 (83) 98 Mechanical Ventilator 28.00 07/04/21 19:15 37.8 89 18 107/72 (84) 99 Mechanical Ventilator 30.00 07/04/21 19:00 89 07/04/21 18:30 37.8 87 17 90/63 (75) 99 Mechanical Ventilator 35.00 07/04/21 18:15 37.7 89 17 76/54 (63) 100 Mechanical Ventilator 35.00 07/04/21 18:14 89 18 99 30 07/04/21 18:00 37.7 92 18 80/56 (68) 99 Mechanical Ventilator 35.00 07/04/21 17:47 90 112/66 07/04/21 17:00 37.5 97 17 86/62 (71) 99 Mechanical Ventilator 35.00 07/04/21 16:00 37.5 113/71 (88) 07/04/21 16:00 Mechanical Ventilator 30.00 97 07/04/21 15:48 37.4 101 17 99 Mechanical Ventilator 35.00 07/04/21 15:45 37.4 112/71 (91) 07/04/21 15:33 37.3 98 17 98 Mechanical Ventilator 35.00 07/04/21 15:30 37.3 105/70 (80) 07/04/21 15:18 37.2 101 18 98 Mechanical Ventilator 35.00 07/04/21 15:15 37.2 101 18 104/68 (82) 98 Mechanical Ventilator 35.00 07/04/21 15:03 37.1 105 18 98 Mechanical Ventilator 35.00 07/04/21 15:00 37.1 104 17 94/64 (73) 98 Mechanical Ventilator 35.00 07/04/21 14:45 37 106 17 112/71 (87) 98 Mechanical Ventilator 35.00 07/04/21 14:03 38 105 17 97 Mechanical Ventilator 35.00 07/04/21 14:00 38 105 18 97/68 (90) 98 Mechanical Ventilator 35.00 07/04/21 13:59 104 18 98 30 07/04/21 13:48 38 07/04/21 13:45 38 110 17 131/85 (98) 97 Mechanical Ventilator 35.00 07/04/21 13:33 38 109 17 97 Mechanical Ventilator 35.00 07/04/21 13:30 38 112/72 (87) 07/04/21 13:18 38 107 17 98 Mechanical Ventilator 35.00 07/04/21 13:15 38 109/69 (83) 07/04/21 13:03 38 107 17 98 Mechanical Ventilator 35.00 07/04/21 12:56 111 I & O 07/05/21 07:00 Intake Total 585 ml Output Total 1010 ml Balance -425 ml Capillary Refill : Greater Than 3 Seconds General Appearance: Other (sedated on ventilator) Respiratory: Lungs Clear, Decreased Breath Sounds Cardiovascular: Regular Rate, Rhythm, Systolic Murmur Gastrointestinal: normal bowel sounds, soft Extremity: No Pedal Edema, Other (SCDs in place) Neurologic/Psychiatric: Other (sedated) Results Lab Laboratory Tests 07/04/21 17:31: Glucometer 77 07/05/21 00:49: Glucometer 123H 07/05/21 05:00: White Blood Count 13.7H, Red Blood Count 3.34L, Hemoglobin 11.7L, Hematocrit 37L , Mean Corpuscular Volume 111H, Mean Corpuscular Hemoglobin 35H, Mean Corpuscular Hemoglobin Concent 32, Red Cell Distribution Width 16.5H, Platelet Count 77L, Mean Platelet Volume 11.9, Immature Granulocyte % (Auto) 1, Neutrophils (%) (Auto) 78H, Lymphocytes (%) (Auto) 12, Monocytes (%) (Auto) 8, Eosinophils (%) (Auto) 0, Basophils (%) (Auto) 0, Neutrophils # (Auto) 10.7H, Lymphocytes # (Auto) 1.7, Monocytes # (Auto) 1.2H, Eosinophils # (Auto) 0.0, Basophils # (Auto) 0.0, Immature Granulocyte # (Auto) 0.1, Percent Immature Platelet Fraction 5.6, Blood Gas Puncture Site RR, Blood Gas Patient Temperature 36.5, Arterial Blood pH 7.51H, Arterial Blood Partial Pressure CO2 24L, Arterial Blood Partial Pressure O2 86, Arterial Blood HCO3 19L, Arterial Blood Total CO2 19.5L, Arterial Blood Oxygen Saturation 98, Arterial Blood Base Excess -3.9L, Bharath Test YES-POS, Blood Gas Ventilator Setting YES, Blood Gas Inspired Oxygen 28%, Sodium Level 145, Potassium Level 3.3L, Chloride Level 116H, Carbon Dioxide Level 18L, Anion Gap 11, Blood Urea Nitrogen 26H, Creatinine 0.90, Estimat Glom erular Filtration Rate 81, BUN/Creatinine Ratio 29, Glucose Level 125H, Calcium Level 8.3L, Phosphorus Level 2.3, Magnesium Level 2.1 Microbiology 07/03/21 Gram Stain - Final, Resulted 07/03/21 Sputum Culture - Preliminary, Resulted Usual upper respiratory salma 07/03/21 Blood Culture - Preliminary, Resulted No growth 07/03/21 Urine Culture - Final, Complete 3 or more isolates Assessment/Plan Assessment/Plan Assess & Plan/Chief Complaint 1. Acute Respiratory Failure--sedated on ventilator, weaning trials on hold due to pneumothorax 2. Hypovolemic/Septic Shock--improved 3. Acute Renal Failure--CR down to 0.9 4. History of atrial fibrillation--cardiology consulted 5. History of Previous Hemorrhagic Stroke with Fpc Deficits 6. Parkinson's--treated with sinemet 7. Recent Right hip fracture with surgery 8. Bibasilar Pneumonia--WBC down to 13,000, continue broad spectrum abx 9. Left Pneumothorax--Thoravent pulled and no worsening so monitoring patient and CXR 10. Thrombocytopenia--hold lovenox today only and repeat CBC in AM, was on heparin drip until yesterday afternoon Clinical Quality Measures Admission Status Admission Dx 1. Acute Respiratory Failure--sedated on ventilator with pulmonary consult, will cover with wide spectrum antibiotics for possible aspiration, cover with heparin for possible PE, V/Q scan ordered for morning 2. Hypovolemic/Septic Shock--aggressive IVF rehydration, pressors prn for BP support, broad spectrum IV antibiotics 3. Acute on Chronic Renal Failure--IVFs and monitor BUN/Cr 4. History of Seizure Disorder--sedated with propofol drip 5. History of Atrial Fibrillation--monitor on telemetry 6. History of Previous CVA and Hemorrhagic Stroke--family understands risk of heparin and is agreeable to cover due to possible PE 7. Recent Right Hip Fracture--S/P surgery 8. Parkinson's Discussed with daughter and son. They understand grave condition NAPOLEON AKHTAR DO Jul 05, 2021 12:52
--- NOTE | 2021-07-05 13:44 | Diagnostic Imaging Report ---
INDICATION: Status post chest tube removal. COMPARISON: 07/04/2021. FINDINGS: A single frontal radiographic view of the chest was obtained. The lungs continue to show low inspiratory volumes with asymmetric elevation of the left hemidiaphragm and asymmetric patchy airspace opacities in the left base. Small effusions are also suspected bilaterally. Overall, the aeration has not significantly changed compared to the prior exam. No pneumothorax is seen on either side. The cardiac silhouette is heavily obscured but appears stable. The pulmonary vasculature is within normal limits. An indwelling endotracheal tube is seen with the tip at the clavicular heads. A gastric tube is also present with the tip and side-port likely within the lumen of the stomach. A right internal jugular central venous catheter is also seen with the tip in the low SVC. A left-sided dual lead pacemaker is noted. IMPRESSION: 1. No pneumothorax. 2. Lines and tubes as above. 3. Low lung volumes with probable small bibasilar effusions and asymmetric left basilar patchy atelectasis and/or infiltrate. Dictated by: Dictated on workstation # [id number]
--- NOTE | 2021-07-05 14:59 | Diagnostic Imaging Report ---
PROCEDURE: CT chest without contrast. TECHNIQUE: Multiple contiguous axial images were obtained through the chest without the use of intravenous contrast. Auto Exposure Controls were utilized during the CT exam to meet ALARA standards for radiation dose reduction. INDICATION: Left-sided pneumothorax and malpositioned chest tube. Patient presents to the department for repositioning of Thora-vent chest tube. FINDINGS: Patient was brought to the CT suite, placed on table in the supine position. Axial imaging through the chest was performed. Patient is intubated. ET tube has tip above the yamini. There is a small left effusion with left lower lobe consolidation. The anterior Thora-vent chest tube does appear to be intraparenchymal in the left upper lobe. However, pneumothorax noted one day earlier has resolved. Only trace basilar pneumothorax is seen. The chest tube was pulled back and placed in extraparenchymal location. Repeat imaging was obtained at approximately 5 minutes, 15 minutes and 25 minutes to evaluate for reaccumulation of pneumothorax. However, follow-up imaging shows no significant reaccumulation of a pneumothorax. Final images do show a trace left basilar pneumothorax. Therefore, the chest tube was not repositioned or replaced. Patient was sent back to the unit in stable condition. IMPRESSION: The malpositioned left anterior chest wall Thora-vent chest tube was removed. No reaccumulation of pneumothorax was detected after delayed imaging. Patient will be sent back to the unit. A repeat chest x-ray in two hours would be recommended for follow-up. Management decisions will then be made at that time based on chest radiograph findings. Dictated by: Dictated on workstation # [id number]
[2021-07-05] MEDS: ENOXAPARIN 40 MG/0.4 ML (LOVENOX) SYR SC SCH (15:37)
[2021-07-05] MEDS: VANCOMYCIN 1 GM/NS 250 ML IVPB IV SCH ×2 (17:15)
[2021-07-05] MEDS: PROPOFOL DRIP (ICU) 100 ML IV SCH (19:50)
[2021-07-05] MEDS: ACETAMINOPHEN 325 MG TABLET PO PRN (20:23)
[2021-07-06] VITALS (66 sets, daily range): BP systolic 83–126; BP diastolic 55–96
[2021-07-06] MEDS: VASOPRESSIN INJECTION 20 UNIT in NS (IVPB) 100 ML IV SCH ×2 (01:17→12:43)
[2021-07-06] MEDS: RT-ALBUTEROL/IPRATROPIUM 3 ML (DUONEB) VIAL INH SCH ×6 (02:11→22:11)
[2021-07-06] MEDS: PROPOFOL DRIP (ICU) 100 ML IV SCH (03:48)
[2021-07-06] MEDS: NOREPINEPHRINE 8 MG/250 ML 250 ML IV SCH (03:49)
[2021-07-06 04:33] LABS: ABG BASE EXCESS -5.7 MMOL/L (-2.5-2.5); ABG OXYGEN SATURATION 99 % (94-100); ABG PCO2 29 MMHG (35-45); ABG PH 7.41 (7.37-7.43); ABG PO2 101 MMHG (79-93); ABG TCO2 18.9 MMOL/L (21.0-31.0)
[2021-07-06 04:34] LABS: ALLENS TEST POSITIVE; BASOPHILS % (AUTO) 0 % (0-10); EOSINOPHILS # (AUTO) 0.3 10^3/uL (0.0-0.3); EOSINOPHILS % (AUTO) 2 % (0-10); HEMATOCRIT 36 % (40-54); HEMOGLOBIN 11.5 g/dL (13.3-17.7); INSPIRED O2 28%; LYMPHOCYTES # (AUTO) 1.7 10^3/uL (1.0-4.0); LYMPHOCYTES % (AUTO) 16 % (12-44); MEAN CORPUSCULAR HEMOGLOBIN 36 pg (25-34); MEAN CORPUSCULAR HGB CONC 32 g/dL (32-36); MEAN CORPUSCULAR VOLUME 110 fL (80-99); MEAN PLATELET VOLUME 11.9 fL (9.0-12.2); MONOCYTES # (AUTO) 0.7 10^3/uL (0.0-1.0); MONOCYTES % (AUTO) 7 % (0-12); NEUTROPHILS # (AUTO) 7.9 10^3/uL (1.8-7.8); NEUTROPHILS % (AUTO) 74 % (42-75); PATIENT TEMP 37.1; PLATELET COUNT 66 10^3/uL (130-400); VENTILATOR YES; WHITE BLOOD COUNT 10.7 10^3/uL (4.3-11.0)
[2021-07-06 04:45] LABS: POTASSIUM 3.3 MMOL/L (3.6-5.0)
[2021-07-06 04:46] LABS: CALCIUM 7.8 MG/DL (8.5-10.1)
[2021-07-06 04:50] LABS: CREATININE SERUM 0.71 MG/DL (0.60-1.30); PHOSPHORUS 2.2 MG/DL (2.3-4.7)
[2021-07-06 04:53] LABS: MAGNESIUM 1.8 MG/DL (1.6-2.4)
[2021-07-06] MEDS ORDERED: POTASSIUM CL 10MEQ/50ML IVPB 200 ML IV ONE (05:10)
[2021-07-06] MEDS: 1/2 NS IV SOLUTION 1,000 ML IV SCH ×3 (05:15→18:18)
[2021-07-06] MEDS: POTASSIUM CL 10MEQ/50ML IVPB 50 ML IV SCH ×4 (05:16→06:10)
[2021-07-06] MEDS: KCL 20 MEQ TAB (K-DUR) PO SCH (05:16)
[2021-07-06] MEDS: MAGNESIUM 1 GM/100 ML IVPB 100 ML IV SCH (05:16)
[2021-07-06] MEDS: inSUlin ASPART (NovoLOG) 1 UNIT/0.01 ML (CHARGE PER UNIT) SC SCH ×3 (05:16→18:05)
--- NOTE | 2021-07-06 06:13 | Diagnostic Imaging Report ---
EXAMINATION: Chest 1 view HISTORY: Pneumonia COMPARISON: 07/05/2021 FINDINGS: Endotracheal tube tip terminates 4 cm above the yamini. Gastric tube tip terminates in the stomach. Left atrial appendage clip is present. Right internal jugular central venous catheter tip terminates in the superior vena cava. There are small lung volumes. There is a small left effusion with overlying atelectasis or pneumonia. No pneumothorax. Pacemaker is present. IMPRESSION: 1. Small volumes with a small left pleural effusion and overlying atelectasis or pneumonia. Dictated by: Dictated on workstation # [id number]
--- NOTE | 2021-07-06 06:27 | Occ Therapy Progress Note ---
Therapy Progress Note Pt is currently intubated. OT will continue to monitor pt status and initiate treatment when pt is medically stable and able to actively participate in skilled therapy. IRWIN LANCASTER Jul 06, 2021 06:27
--- NOTE | 2021-07-06 07:08 | Physical Therapy Progress Note ---
Therapy Progress Note Patient currently sedated and intubated. PT will monitor patient status and initiate treatment when patient is able to actively participate with skilled PT. RAMBO PAYTON PT Jul 06, 2021 07:08
--- NOTE | 2021-07-06 08:41 | Tele-ICU Progress Note ---
Subjective Date Seen by a Provider: Jul 06, 2021 Time Seen by a Provider: 07:00 Subjective/Events-last exam This virtual visit was conducted using real time audio/video. Thank you for asking us to see this patient for respiratory insufficiency due to asp pna. Recent events: Thoravent removed 07/05/21. PE: Comfortable on vent. VSS. O2 sat 99% on 28%/+5. HEENT: No obvious masses, adenopathy or JVD. Chest: clear to auscultation. CV: Irreg 85/min. S1 S2 No murmur or added sounds. Abd: Non-tender. Bowel sounds Y. : Unremarkable. Mclaughlin Y. [employer]/psychiatric: Following commands. Grossly intact. No obvious focal findings. Extremities: No edema. Capillary refill < 3 seconds. Skin: unremarkable. Results: Decreased Hb 11.5, K 3.3. B.41/29/101. CXR: LLL inf., effusion. Available chart/ vitals / labs / images reviewed. Video assessment done using teleICU camera, rest of exam as per RN. A/P: Respiratory insufficiency: SBT once off Levo. Cont Duonebs. Critical Care: critically ill patient. Cont. abx, PPI, SSI, Joy. Replace K. Discussed with RN Ligia. Asked RN to reach out to eICU if any questions or concerns later. Time spent with patient/coordination of care with other health professionals (mins): 28 Sepsis Event Evaluation Height, Weight, BMI Height: 5'4.00" Weight: 166lbs. 3.0oz. [id number]; 26.87 BMI Method:Stated Focused Exam Lactate Level 07/03/21 18:53: Lactic Acid Level 4.47*H 07/03/21 21:35: Lactic Acid Level 3.15*H 07/03/21 23:51: Lactic Acid Level 3.85*H Time of Focused Exam: 15:58 Exam Exam Patient acknowledged, consented, and participated in this virtual visit which was conducted using real time audio/video Vital Signs Date Time Temp Pulse Resp B/P (MAP) Pulse Ox O2 Delivery O2 Flow Rate FiO2 07/06/21 08:00 37.2 86 10 124/79 (98) 96 Mechanical Ventilator 28.00 07/06/21 07:45 37.1 84 17 120/69 (90) 99 11/25/21 07:30 37.1 89 17 113/66 (85) 99 07/06/21 07:15 37 84 18 126/73 (93) 99 07/06/21 07:00 37.1 84 17 125/73 (96) 99 Mechanical Ventilator 28.00 07/06/21 07:00 80 07/06/21 06:48 87 18 98 28 07/06/21 06:45 37.1 84 18 93/60 (70) 100 07/06/21 06:30 37.1 89 18 84/55 (68) 99 07/06/21 06:15 37.1 89 18 93/57 (68) 07/06/21 06:00 37.2 97 17 100/59 (73) 99 Mechanical Ventilator 28.00 07/06/21 05:25 92 22 99 07/06/21 05:00 37.2 89 18 100/60 (73) 98 Mechanical Ventilator 28.00 07/06/21 04:00 37.0 89 17 91/56 (68) 97 Mechanical Ventilator 28.00 07/06/21 03:54 07/06/21 03:52 Mechanical Ventilator 28.00 100 07/06/21 03:49 82 07/06/21 03:48 82 07/06/21 03:00 37.1 80 18 86/69 (75) 99 Mechanical Ventilator 28.00 07/06/21 02:11 80 18 100 28 07/06/21 02:00 37.1 82 18 97/61 (73) 100 Mechanical Ventilator 28.00 07/06/21 01:00 37.0 82 17 96/58 (71) 100 Mechanical Ventilator 28.00 07/06/21 01:00 89 07/06/21 00:00 37.1 87 17 100/59 (73) 98 Mechanical Ventilator 28.00 07/06/21 00:00 Mechanical Ventilator 28.00 97 07/05/21 23:00 37.3 89 18 109/60 (76) 98 Mechanical Ventilator 28.00 07/05/21 22:10 87 18 98 28 07/05/21 22:00 37.6 84 18 109/64 (79) 98 Mechanical Ventilator 28.00 07/05/21 21:39 37.7 07/05/21 21:00 37.9 90 18 112/66 (81) 98 Mechanical Ventilator 28.00 07/05/21 21:00 37.7 07/05/21 20:31 Mechanical Ventilator 28.00 98 07/05/21 20:23 38.1 07/05/21 20:00 37.9 89 18 105/64 (78) 95 Mechanical Ventilator 28.00 07/05/21 19:50 87 07/05/21 19:50 109/65 07/05/21 19:00 37.9 Mechanical Ventilator 28.00 07/05/21 19:00 89 07/05/21 19:00 37.8 85 18 115/69 (84) 94 Mechanical Ventilator 28.00 07/05/21 18:04 84 18 95 28 07/05/21 18:00 37.7 84 18 119/70 (86) 94 Mechanical Ventilator 28.00 07/05/21 17:00 37.3 89 18 122/68 (86) 95 Mechanical Ventilator 28.00 07/05/21 16:00 Mechanical Ventilator 28.00 07/05/21 16:00 37.1 89 18 122/65 (84) 94 Mechanical Ventilator 28.00 07/05/21 15:03 89 18 95 28 07/05/21 15:00 36.9 89 18 118/68 (85) 95 Mechanical Ventilator 28.00 07/05/21 14:00 36.7 84 17 128/72 (90) 95 Mechanical Ventilator 28.00 07/05/21 13:00 36.3 90 17 121/77 (92) 95 Mechanical Ventilator 28.00 07/05/21 12:35 90 07/05/21 12:00 Mechanical Ventilator 28.00 07/05/21 12:00 35.8 90 17 122/75 (91) 95 Mechanical Ventilator 28.00 07/05/21 11:59 90 18 95 28 07/05/21 11:00 37.3 89 17 104/65 (78) 96 Mechanical Ventilator 28.00 07/05/21 10:00 37.2 89 17 117/67 (84) 95 Mechanical Ventilator 28.00 07/05/21 09:00 37.0 89 17 87/57 (67) 96 Mechanical Ventilator 28.00 I & O 07/06/21 07:00 Intake Total 5185 ml Output Total 1325 ml Balance 3860 ml Height & Weight Height: 5'4.00" Weight: 166lbs. 3.0oz. 70.140806pl; 26.87 BMI Method:Stated General Appearance: Chronically ill (See free text.), Other (sedated on ventilator) HEENT: Other (ET tube and OG tube in place) Neck: Supple Respiratory: Lungs Clear, Decreased Breath Sounds Cardiovascular: Regular Rate, Rhythm, Systolic Murmur Capillary Refill: Greater Than 3 Seconds Peripheral Pulses: 2+ Radial Pulses (R), 2+ Radial Pulses (L) Gastrointestinal: soft, no organomegaly Extremity: No Pedal Edema, Other (SCDs in place) Neurologic/Psychiatric: Other (sedated) Skin: Warm/Dry Results Lab Laboratory Tests 07/05/21 05:00 07/06/21 04:20 Assessment/Plan Assessment/Plan See free text. Critical Care: Ventilator Management PENELOPE JACKSON MD Jul 06, 2021 08:41
--- NOTE | 2021-07-06 08:58 | Progress Note ---
Subjective Date Seen by a Provider: Jul 06, 2021 Time Seen by a Provider: 08:00 Subjective/Events-last exam doing. sedation being weened and pt awake/alert. minimal vasopressors being weened off. vent FiO2 at 28%. no recurrent PTX. Focused Exam Lactate Level 07/03/21 18:53: Lactic Acid Level 4.47*H 07/03/21 21:35: Lactic Acid Level 3.15*H 07/03/21 23:51: Lactic Acid Level 3.85*H Time of Focused Exam: 15:58 Objective Exam Vital Signs Date Time Temp Pulse Resp B/P (MAP) Pulse Ox O2 Delivery O2 Flow Rate FiO2 07/06/21 08:00 37.2 86 10 124/79 (98) 96 Mechanical Ventilator 28.00 07/06/21 07:45 37.1 84 17 120/69 (90) 99 07/06/21 07:30 37.1 89 17 113/66 (85) 99 07/06/21 07:15 37 84 18 126/73 (93) 99 07/06/21 07:00 37.1 84 17 125/73 (96) 99 Mechanical Ventilator 28.00 07/06/21 07:00 80 07/06/21 06:48 87 18 98 28 07/06/21 06:45 37.1 84 18 93/60 (70) 100 07/06/21 06:30 37.1 89 18 84/55 (68) 99 07/06/21 06:15 37.1 89 18 93/57 (68) 07/06/21 06:00 37.2 97 17 100/59 (73) 99 Mechanical Ventilator 28.00 07/06/21 05:25 92 22 99 07/06/21 05:00 37.2 89 18 100/60 (73) 98 Mechanical Ventilator 28.00 07/06/21 04:00 37.0 89 17 91/56 (68) 97 Mechanical Ventilator 28.00 07/06/21 03:54 07/06/21 03:52 Mechanical Ventilator 28.00 100 07/06/21 03:49 82 07/06/21 03:48 82 07/06/21 03:00 37.1 80 18 86/69 (75) 99 Mechanical Ventilator 28.00 07/06/21 02:11 80 18 100 28 07/06/21 02:00 37.1 82 18 97/61 (73) 100 Mechanical Ventilator 28.00 07/06/21 01:00 37.0 82 17 96/58 (71) 100 Mechanical Ventilator 28.00 07/06/21 01:00 89 07/06/21 00:00 37.1 87 17 100/59 (73) 98 Mechanical Ventilator 28.00 07/06/21 00:00 Mechanical Ventilator 28.00 97 07/05/21 23:00 37.3 89 18 109/60 (76) 98 Mechanical Ventilator 28.00 07/05/21 22:10 87 18 98 28 07/05/21 22:00 37.6 84 18 109/64 (79) 98 Mechanical Ventilator 28.00 07/05/21 21:39 37.7 07/05/21 21:00 37.9 90 18 112/66 (81) 98 Mechanical Ventilator 28.00 07/05/21 21:00 37.7 07/05/21 20:31 Mechanical Ventilator 28.00 98 07/05/21 20:23 38.1 07/05/21 20:00 37.9 89 18 105/64 (78) 95 Mechanical Ventilator 28.00 07/05/21 19:50 87 07/05/21 19:50 109/65 07/05/21 19:00 37.9 Mechanical Ventilator 28.00 07/05/21 19:00 89 07/05/21 19:00 37.8 85 18 115/69 (84) 94 Mechanical Ventilator 28.00 07/05/21 18:04 84 18 95 28 07/05/21 18:00 37.7 84 18 119/70 (86) 94 Mechanical Ventilator 28.00 07/05/21 17:00 37.3 89 18 122/68 (86) 95 Mechanical Ventilator 28.00 07/05/21 16:00 Mechanical Ventilator 28.00 07/05/21 16:00 37.1 89 18 122/65 (84) 94 Mechanical Ventilator 28.00 07/05/21 15:03 89 18 95 28 07/05/21 15:00 36.9 89 18 118/68 (85) 95 Mechanical Ventilator 28.00 07/05/21 14:00 36.7 84 17 128/72 (90) 95 Mechanical Ventilator 28.00 07/05/21 13:00 36.3 90 17 121/77 (92) 95 Mechanical Ventilator 28.00 11/24/21 12:35 90 07/05/21 12:00 Mechanical Ventilator 28.00 07/05/21 12:00 35.8 90 17 122/75 (91) 95 Mechanical Ventilator 28.00 07/05/21 11:59 90 18 95 28 07/05/21 11:00 37.3 89 17 104/65 (78) 96 Mechanical Ventilator 28.07/05/21 10:00 37.2 89 17 117/67 (84) 95 Mechanical Ventilator 28.07/05/21 09:00 37.0 89 17 87/57 (67) 96 Mechanical Ventilator 28.00 I & O 07/06/21 07:00 Intake Total 5185 ml Output Total 1325 ml Balance 3860 ml Capillary Refill : Greater Than 3 Seconds General Appearance: No Apparent Distress HEENT: PERRL/EOMI Neck: Full Range of Motion Respiratory: Decreased Breath Sounds Cardiovascular: Regular Rate, Rhythm Gastrointestinal: normal bowel sounds, non tender, soft Extremity: Normal Capillary Refill Neurologic/Psychiatric: Alert, Oriented x3 Skin: Normal Color Lymphatic: No Adenopathy Results Lab Laboratory Tests 07/05/21 17:39: Glucometer 105 07/05/21 22:56: Glucometer 129H 07/06/21 04:20: White Blood Count 10.7, Red Blood Count 3.23L, Hemoglobin 11.5L, Hematocrit 36L, Mean Corpuscular Volume 110H, Mean Corpuscular Hemoglobin 36H, Mean Corpuscular Hemoglobin Concent 32, Red Cell Distribution Width 16.3H, Platelet Count 66L, Mean Platelet Volume 11.9, Immature Granulocyte % (Auto) 1, Neutrophils (%) (Auto) 74, Lymphocytes (%) (Auto) 16, Monocytes (%) (Auto) 7, Eosinophils (%) (Auto) 2, Basophils (%) (Auto) 0, Neutrophils # (Auto) 7.9H, Lymphocytes # (Auto) 1.7, Monocytes # (Auto) 0.7, Eosinophils # (Auto) 0.3, Basophils # (Auto) 0.0, Immature Granulocyte # (Auto) 0.1, Blood Gas Puncture Site LEFT RADIAL, Blood Gas Patient Temperature 37.1, Arterial Blood pH 7.41, Arterial Blood Partial Pressure CO2 29L, Arterial Blood Partial Pressure O2 101H, Arterial Blood HCO3 18L, Arterial Blood Total CO2 18.9L, Arterial Blood Oxygen Saturation 99, Arterial Blood Base Excess -5.7L, Bharath Test POSITIVE, Blood Gas Ventilator Setting YES, Blood Gas Inspired Oxygen 28%, Sodium Level 139, Potassium Level 3.3L, Chloride Level 112H, Carbon Dioxide Level 17L, Anion Gap 10, Blood Urea Nitrogen 15, Creatinine 0.71, Estimat Glomerular Filtration Rate 106, BUN/Creatinine Ratio 21, Glucose Level 124H, Calcium Level 7.8L, Phosphorus Level 2.2L, Magnesium Level 1.8, Triglycerides Level 112 Microbiology 07/03/21 Gram Stain - Final, Resulted 07/03/21 Sputum Culture - Preliminary, Resulted Usual upper respiratory salma 07/03/21 Blood Culture - Preliminary, Resulted No growth 07/03/21 Urine Culture - Final, Complete 3 or more isolates Assessment/Plan Assessment/Plan Assess & Plan/Chief Complaint ARF likely secondary aspiration pneumonia. vent ween. no recurrent PTX. will follow cxr's DEBORAH SALGUERO MD Jul 06, 2021 08:58
--- NOTE | 2021-07-06 09:05 | Cardiology Progress Note ---
Subjective Date Seen by Provider: Jul 06, 2021 Time Seen by Provider: 09:03 Subjective/Events-last exam Patient is awake, still intubated, on weaning trial Responding appropriately to commands Review of Systems General: Other (Unable to provide review of system) Focused Exam Lactate Level 07/03/21 18:53: Lactic Acid Level 4.47*H 07/03/21 21:35: Lactic Acid Level 3.15*H 07/03/21 23:51: Lactic Acid Level 3.85*H Time of Focused Exam: 15:58 Objective-Cardiology Exam Last Set of Vital Signs Vital Signs 07/06/21 07/06/21 06:48 08:00 Temp 37.2 Pulse 86 Resp 10 B/P (MAP) 124/79 (98) Pulse Ox 96 O2 Delivery Mechanical Ventilator O2 Flow Rate 28.00 FiO2 28 I&O Intake and Output 07/06/21 00:00 Intake Total 3505 ml Output Total 1060 ml Balance 2445 ml IV Total 2680 ml Tube Feeding 300 ml Other 525 ml Output Urine Total 1060 ml General: No Acute Distress, Other (Ventilator dependent) Neck: Supple, No JVD Lungs: Other (bilat rhonchi) Heart: Regular Rate, Normal S1, Normal S2 Abdomen: Soft, No Tenderness Extremities: No Edema Skin: No Rashes, No Significant Lesion Neuro: Other (Ventilator dependent) Psych/Mental Status: Other (Ventilator) Results Lab Laboratory Tests 07/06/21 04:20 A/P-Cardiology Admission Diagnosis Acute respiratory failure Hypotensive shock Lactic acidosis Cardiac pacemaker Assessment/Plan Acute hypoxemic respiratory failure, currently ventilator dependent, CT chest showed bibasilar parenchymal consolidation, left greater. The left four vent chest tube does appear to be intraparenchymal in the left upper lobe with some surrounding left upper lobe hemorrhage. There was a small to moderate residual left-sided pneumothorax present. Dr. Yvette driscoll was consulted, Thora vent was removed on July 05, 2021 with no complication Being weaned off the ventilator today. Continue to monitor Hypotensive shock, probably septic. Received IV fluid resuscitation, was maintained on pressors, currently off all pressors, blood pressure is stable. Continue to monitor Lactic acidosis, secondary to hypoxemia and sepsis. Improved. Continue to monitor Chronic persistent atrial fibrillation, has history of sinus node dysfunction and permanent pacemaker, maintained on telemetry History of intracranial bleed after trauma, history of embolic stroke and hemorrhagic stroke, unable to tolerate long-term oral anticoagulation, had left atrial appendage clip done at in the past. Continue to monitor Permanent pacemaker, generator replaced in April 2020, good sensing and capture activity. Anemia, received blood transfusion on 06/06/2021, continue to monitor History of hypertension, currently normotensive, was initially hypotensive on admission to the hospital. History of seizure disorder. No witnessed seizure activity. Continue to monitor Mild bilateral carotid stenosis, continue to monitor Hyperlipidemia, monitor lipids KEDAR BOYKIN MD Jul 06, 2021 09:05
[2021-07-06] MEDS: PANTOPRAZOLE 40 MG (PROTONIX) VIAL IV SCH (09:33)
[2021-07-06] MEDS: PIPERACILLIN/TAZO 4.5 GM/NS 100 ML IV SCH ×4 (09:34→16:18)
[2021-07-06] MEDS: LACTATED RINGERS 1,000 ML IV SCH ×3 (10:09→19:55)
[2021-07-06] MEDS: ACETAMINOPHEN 325 MG TABLET PO PRN (14:48)
[2021-07-06] MEDS: ENOXAPARIN 40 MG/0.4 ML (LOVENOX) SYR SC SCH (18:05)
--- NOTE | 2021-07-06 19:12 | Progress Note - Hospitalist ---
Subjective HPI/CC On Admission Date Seen by Provider: Jul 06, 2021 Time Seen by Provider: 09:35 Subjective/Events-last exam He remains intubated. He is off sedation and following commands. He is going to try a spontaneous breathing trial today. His daughter is at the bedside. His throat hurts. He denies any other pain. Focused Exam Lactate Level 07/03/21 21:35: Lactic Acid Level 3.15*H 07/03/21 23:51: Lactic Acid Level 3.85*H Time of Focused Exam: 15:58 Objective Exam Vital Signs Vital Signs Date Time Temp Pulse Resp B/P (MAP) Pulse Ox O2 Delivery O2 Flow Rate FiO2 07/06/21 18:35 84 18 100 28 07/06/21 18:00 37.8 106/63 (78) Mechanical Ventilator 28.00 Capillary Refill : Greater Than 3 Seconds General Appearance: No Apparent Distress, Other (intubated) HEENT: PERRL/EOMI, Other (ET tube in place) Respiratory: Lungs Clear, Normal Breath Sounds, No Respiratory Distress, Other (intubated and mechanically ventilated) Cardiovascular: Regular Rate, Rhythm, No Edema, No Murmur Gastrointestinal: Normal Bowel Sounds, Non Tender, Soft Extremity: Normal Inspection, Non Tender, No Pedal Edema Neurologic/Psychiatric: Alert, Other (following commands, moving all extremities) Skin: Normal Color, Warm/Dry Results/Procedures Lab Laboratory Tests 07/06/21 04:20 Patient resulted labs reviewed. Assessment/Plan Assessment and Plan Assess & Plan/Chief Complaint Septic shock due to PNA Acute respiratory failure with hypoxia Acute kidney injury Atrial fibrillation History of hemorrhagic stroke Parkinson's Recent hip fracture Thrombocytopenia IV antibiotics IV fluids SBT today TeleICU following Cardiology following Holding Heparin/Lovenox due to thrombocytopenia DVT prophylaxis: held due to thrombocytopenia, SCDs Pneumothorax, resolved Critical Care Critically Ill Patient Diagnosis/Problems Diagnosis/Problems (1) Acute respiratory failure Status: Acute Qualifiers: Respiratory failure complication: hypoxia Qualified Codes: J96.01 - Acute respiratory failure with hypoxia (2) PNA (pneumonia) Status: Acute (3) Endotracheally intubated Status: Acute (4) LUZ MARINA (acute kidney injury) Status: Acute (5) Afib Status: Chronic (6) Pneumothorax Status: Resolved Resolution Date/Time: 07/06/21 @ 19:11 (7) Septic shock Status: Resolved Resolution Date/Time: 07/06/21 @ 19:11 SARKIS COTA MD Jul 06, 2021 19:12
[2021-07-07] VITALS (42 sets, daily range): BP systolic 82–135; BP diastolic 55–95
[2021-07-07] MEDS: 1/2 NS IV SOLUTION 1,000 ML IV SCH (01:47)
[2021-07-07] MEDS: PIPERACILLIN/TAZO 4.5 GM/NS 100 ML IV SCH ×8 (01:48→23:28)
[2021-07-07] MEDS: VASOPRESSIN INJECTION 20 UNIT in NS (IVPB) 100 ML IV SCH ×2 (01:49→11:54)
[2021-07-07] MEDS: RT-ALBUTEROL/IPRATROPIUM 3 ML (DUONEB) VIAL INH SCH ×6 (02:39→22:40)
[2021-07-07] MEDS: LACTATED RINGERS 1,000 ML IV SCH ×3 (04:44→13:21)
[2021-07-07 05:17] LABS: BASOPHILS % (AUTO) 0 % (0-10); EOSINOPHILS # (AUTO) 0.5 10^3/uL (0.0-0.3); EOSINOPHILS % (AUTO) 6 % (0-10); HEMATOCRIT 33 % (40-54); HEMOGLOBIN 10.8 g/dL (13.3-17.7); LYMPHOCYTES # (AUTO) 1.1 10^3/uL (1.0-4.0); LYMPHOCYTES % (AUTO) 13 % (12-44); MEAN CORPUSCULAR HEMOGLOBIN 36 pg (25-34); MEAN CORPUSCULAR HGB CONC 33 g/dL (32-36); MEAN CORPUSCULAR VOLUME 110 fL (80-99); MEAN PLATELET VOLUME 11.5 fL (9.0-12.2); MONOCYTES # (AUTO) 0.5 10^3/uL (0.0-1.0); MONOCYTES % (AUTO) 6 % (0-12); NEUTROPHILS # (AUTO) 6.5 10^3/uL (1.8-7.8); NEUTROPHILS % (AUTO) 74 % (42-75); PLATELET COUNT 77 10^3/uL (130-400); WHITE BLOOD COUNT 8.8 10^3/uL (4.3-11.0)
[2021-07-07 05:25] LABS: POTASSIUM 3.8 MMOL/L (3.6-5.0)
[2021-07-07 05:27] LABS: CALCIUM 7.9 MG/DL (8.5-10.1)
[2021-07-07 05:31] LABS: CREATININE SERUM 0.6 MG/DL (0.60-1.30); PHOSPHORUS 2.8 MG/DL (2.3-4.7)
[2021-07-07 05:34] LABS: MAGNESIUM 1.9 MG/DL (1.6-2.4)
[2021-07-07] MEDS: POTASSIUM CL 10MEQ/50ML IVPB 50 ML IV SCH (06:11)
[2021-07-07] MEDS: MAGNESIUM 1 GM/100 ML IVPB 100 ML IV SCH (06:11)
[2021-07-07] MEDS: inSUlin ASPART (NovoLOG) 1 UNIT/0.01 ML (CHARGE PER UNIT) SC SCH ×5 (06:12→21:18)
[2021-07-07] MEDS: KCL 20 MEQ TAB (K-DUR) PO SCH (06:12)
--- NOTE | 2021-07-07 06:43 | Occ Therapy Progress Note ---
Therapy Progress Note Pt currently intubated. OT will monitor pt status and initiate treatment when pt is medically stable and able to actively participate in skilled therapy. IRWIN LANCASTER Jul 07, 2021 06:43
[2021-07-07] MEDS: NOREPINEPHRINE 8 MG/250 ML 250 ML IV SCH (07:27)
[2021-07-07] MEDS: PANTOPRAZOLE 40 MG (PROTONIX) VIAL IV SCH (07:48)
--- NOTE | 2021-07-07 09:57 | Tele-ICU Progress Note ---
Progress Note Reviewed pt on rounds with nursing and reviewed physician charting.Pt was successfully extubated to nasal cannula. Hx of syncope, AMS while eating lunch at [facility]. Intubated for hypoxemia and airway protection. Appreciate Cardiology consult indicating chronic afib hx, but unable to tolerate anticoagulation due to embolic and hemorrhagic strokes, so L atrial appendage clippping has been done, has PPM. While in hospital he was placed on heparin for elevated DDimer- w/u no DVT or PE identified and platelet count has dropped. Will hold the current lovenox and put pt on SCDs, have ordered HIT w/u. Also- keep pt NPO until video swallow completed, adjust IVFs- Paced rhythm, BP 103/67 RR 27 Pt appears comfortable and visiting with family member at bedside Focused Exam Height, Weight, BMI Height: 5'4.00" Weight: 166lbs. 3.0oz. [id number]; 26.87 BMI Method:Stated Time of Focused Exam: 15:58 NATHANIEL PRATT DO Jul 07, 2021 09:57
--- NOTE | 2021-07-07 10:02 | Cardiology Progress Note ---
Subjective Date Seen by Provider: Jul 07, 2021 Time Seen by Provider: 10:00 Subjective/Events-last exam Patient was seen at bedside, extubated, lethargic, complaining of sore throat Review of Systems General: No Chills, No Night Sweats; Fatigue, Malaise; No Appetite, No Other HEENT: No Head Aches, No Visual Changes, No Eye Pain, No Ear Pain, No Dysphasia, No Sinus Congestion, No Post Nasal Drip, No Sore Throat, No Other Pulmonary: No Dyspnea, No Cough, No Pleuritic Chest Pain, No Other Cardiovascular: No: Chest Pain, Palpitations, Orthopnea, Paroxysmal Noc. Dyspnea, Edema, Lt Headedness, Other Focused Exam Time of Focused Exam: 15:58 Objective-Cardiology Exam Last Set of Vital Signs Vital Signs 07/07/21 07/07/21 08:19 09:00 Temp 37.3 Pulse 84 Resp 32 B/P (MAP) 96/56 (71) Pulse Ox 99 O2 Delivery Mechanical Ventilator O2 Flow Rate 28.00 FiO2 28 I&O Intake and Output 07/07/21 00:00 Intake Total 5035 ml Output Total 2800 ml Balance 2235 ml IV Total 3550 ml Tube Feeding 830 ml Other 655 ml Output Urine Total 2800 ml General: Alert, Oriented X3, Cooperative, No Acute Distress HEENT: Atraumatic Neck: Supple, No JVD Lungs: Other (bilat rhonchi) Heart: Regular Rate, Normal S1, Normal S2 Abdomen: Soft, No Tenderness Extremities: No Clubbing, No Edema Skin: No Rashes, No Significant Lesion Neuro: Normal Speech Psych/Mental Status: Mental Status NL, Mood NL Results Lab Laboratory Tests 07/07/21 05:00 A/P-Cardiology Admission Diagnosis Acute respiratory failure Hypotensive shock Lactic acidosis Cardiac pacemaker Assessment/Plan Status post acute respiratory failure, extubated, doing better CT chest showed bibasilar parenchymal consolidation, left greater. The left four vent chest tube does appear to be intraparenchymal in the left upper lobe with some surrounding left upper lobe hemorrhage. There was a small to moderate residual left-sided pneumothorax present. Dr. Forde was consulted, Thora vent was removed on July 05, 2021 with no complication Continue on antibiotic and monitor. Sepsis, pneumonia, receiving antibiotic and managed by primary care team. Hypotension, still having borderline hypotension, continue on IV fluid and monitor tolerance and response Chronic persistent atrial fibrillation, has history of sinus node dysfunction and permanent pacemaker, currently in AV paced rhythm. Continue to monitor History of intracranial bleed after trauma, history of embolic stroke and hemorrhagic stroke, unable to tolerate long-term oral anticoagulation, had left atrial appendage clip done at in the past. Continue to monitor Permanent pacemaker, generator replaced in April 2020, good sensing and capture activity. Anemia, received blood transfusion on 06/06/2021, continue to monitor History of hypertension, currently normotensive, was initially hypotensive on admission to the hospital. History of seizure disorder. No witnessed seizure activity. Continue to monitor Mild bilateral carotid stenosis, continue to monitor Hyperlipidemia, monitor lipids KEDAR BOYKIN MD Jul 07, 2021 10:02
--- NOTE | 2021-07-07 10:31 | Progress Note ---
Subjective Date Seen by a Provider: Jul 07, 2021 Time Seen by a Provider: 10:00 Subjective/Events-last exam doing well. extubated this am. started PT and OT. swallow eval ordered. start on dys1 diet. Focused Exam Time of Focused Exam: 15:58 Objective Exam Vital Signs Date Time Temp Pulse Resp B/P (MAP) Pulse Ox O2 Delivery O2 Flow Rate FiO2 07/07/21 09:00 37.3 84 32 96/56 (71) 99 Mechanical Ventilator 28.00 07/07/21 08:45 37.3 80 29 103/67 (81) 99 07/07/21 08:30 37.2 83 32 101/62 (78) 98 07/07/21 08:19 79 26 100 28 07/07/21 08:15 37.2 88 32 113/64 (84) 100 07/07/21 08:00 37.2 87 26 98/57 (71) 97 Mechanical Ventilator 28.00 07/07/21 07:50 98 Mechanical Ventilator 28 07/07/21 07:49 36.8 07/07/21 07:45 37.2 82 27 96/60 (72) 98 07/07/21 07:30 37.3 85 26 100/59 (75) 98 07/07/21 07:15 37.3 80 27 99/64 (80) 98 07/07/21 07:00 37.3 81 27 101/60 (76) 99 Mechanical Ventilator 28.00 07/07/21 07:00 86 07/07/21 06:45 37.2 80 26 105/60 (77) 99 07/07/21 06:33 79 28 100 28 07/07/21 06:30 37.2 76 17 129/95 (112) 99 07/07/21 06:15 37.1 78 18 124/79 (94) 99 07/07/21 06:00 37.0 85 18 109/66 (80) 99 Mechanical Ventilator 28.00 07/07/21 05:00 36.9 79 17 103/62 (76) 97 Mechanical Ventilator 28.00 07/07/21 04:00 98 Mechanical Ventilator 28 07/07/21 04:00 37.2 81 17 135/76 (95) 95 Mechanical Ventilator 28.00 07/07/21 03:00 37.2 79 17 120/66 (84) 97 Mechanical Ventilator 28.00 07/07/21 02:39 85 18 97 28 07/07/21 02:00 37.3 80 17 119/70 (86) 99 Mechanical Ventilator 28.00 07/07/21 01:00 76 07/07/21 01:00 37.1 80 17 101/66 (78) 98 Mechanical Ventilator 28.00 07/07/21 00:00 37.3 80 17 108/67 (81) 96 Mechanical Ventilator 28.00 07/07/21 00:00 98 Mechanical Ventilator 28 07/06/21 23:00 37.5 83 17 97/70 (79) 97 Mechanical Ventilator 28.00 07/06/21 22:11 78 18 100 28 07/06/21 22:00 37.6 78 18 109/68 (82) 98 Mechanical Ventilator 28.00 07/06/21 21:00 37.5 80 18 92/56 (68) 99 Mechanical Ventilator 28.00 07/06/21 20:00 37.4 82 18 92/58 (69) 97 Mechanical Ventilator 28.00 07/06/21 20:00 98 Mechanical Ventilator 28 07/06/21 19:00 37.6 80 18 105/65 (78) 99 Mechanical Ventilator 28.00 07/06/21 19:00 80 07/06/21 18:35 84 18 100 28 07/06/21 18:00 37.8 80 18 106/63 (78) 98 Mechanical Ventilator 28.00 07/06/21 17:45 37.8 85 13 116/96 (104) 96 07/06/21 17:30 37.8 89 18 98/67 (78) 99 07/06/21 17:15 37.7 81 17 103/69 (81) 98 07/06/21 17:00 37.7 86 18 120/71 (95) 99 07/06/21 16:45 37.7 82 18 110/67 (82) 99 07/06/21 16:30 37.7 85 17 108/67 (86) 97 07/06/21 16:15 37.7 87 18 87/55 (64) 98 07/06/21 16:12 37.7 07/06/21 16:00 37.7 88 17 85/57 (66) 97 07/06/21 16:00 98 Mechanical Ventilator 28 07/06/21 15:45 37.8 85 17 84/56 (65) 97 07/06/21 15:30 37.9 87 18 87/56 (64) 97 07/06/21 15:15 37.9 83 17 91/59 (69) 98 07/06/21 15:00 37.9 84 18 102/70 (83) 98 Mechanical Ventilator 28.00 07/06/21 14:48 37.9 07/06/21 14:47 85 18 98 28 07/06/21 14:45 37.9 89 17 113/72 (86) 97 07/06/21 14:30 37.8 85 18 98/60 (76) 98 07/06/21 14:15 37.8 84 18 102/60 (79) 98 07/06/21 14:00 37.8 82 19 116/70 (85) 99 Mechanical Ventilator 28.00 07/06/21 13:45 37.8 83 18 108/66 (80) 98 07/06/21 13:30 37.8 84 17 99/65 (76) 98 Mechanical Ventilator 28.00 07/06/21 13:15 37.9 85 17 83/58 (67) 98 07/06/21 13:00 37.9 84 17 85/57 (65) 98 Mechanical Ventilator 28.00 07/06/21 12:55 84 07/06/21 12:45 37.8 85 17 85/58 (69) 98 07/06/21 12:30 37.8 89 18 89/56 (66) 98 07/06/21 12:15 37.8 84 18 89/62 (74) 99 07/06/21 12:00 Mechanical Ventilator 28 07/06/21 12:00 37.8 85 17 92/57 (69) 99 Mechanical Ventilator 28.00 07/06/21 11:45 37.7 87 17 91/60 (70) 98 07/06/21 11:30 37.7 87 17 96/61 (75) 98 07/06/21 11:15 37.8 85 17 89/55 (70) 99 07/06/21 11:09 37.7 89 23 108/70 (90) 94 07/06/21 11:00 37.7 87 17 88/59 (74) 98 Mechanical Ventilator 28.00 07/06/21 10:45 37.7 88 18 97/59 (75) 98 07/06/21 10:30 37.7 85 17 102/64 (77) 97 I & O 07/07/21 07:00 Intake Total 3555 ml Output Total 3700 ml Balance -145 ml Capillary Refill : Greater Than 3 Seconds General Appearance: No Apparent Distress HEENT: PERRL/EOMI Neck: Full Range of Motion Respiratory: Chest Non Tender, Normal Breath Sounds Cardiovascular: Regular Rate, Rhythm Gastrointestinal: normal bowel sounds, non tender, soft Extremity: Normal Capillary Refill Neurologic/Psychiatric: Alert, Oriented x3 Skin: Normal Color Lymphatic: No Adenopathy Results Lab Laboratory Tests 07/06/21 12:26: Glucometer 105 07/06/21 17:31: Glucometer 110 07/07/21 01:16: Glucometer 112H 07/07/21 05:00: White Blood Count 8.8, Red Blood Count 3.02L, Hemoglobin 10.8L, Hematocrit 33L, Mean Corpuscular Volume 110H, Mean Corpuscular Hemoglobin 36H, Mean Corpuscular Hemoglobin Concent 33, Red Cell Distribution Width 16.4H, Platelet Count 77L, Mean Platelet Volume 11.5, Immature Granulocyte % (Auto) 2, Neutrophils (%) (Auto) 74, Lymphocytes (%) (Auto) 13, Monocytes (%) (Auto) 6, Eosinophils (%) (Auto) 6, Basophils (%) (Auto) 0, Neutrophils # (Auto) 6.5, Lymphocytes # (Auto) 1.1, Monocytes # (Auto) 0.5, Eosinophils # (Auto) 0.5H, Basophils # (Auto) 0.0, Immature Granulocyte # (Auto) 0.2H, Sodium Level 141, Potassium Level 3.8, Chloride Level 115H, Carbon Dioxide Level 18L, Anion Gap 8, Blood Urea Nitrogen 10, Creatinine 0.60, Estimat Glomerular Filtration Rate 129, BUN/Creatinine Ratio 17, Glucose Level 115H, Calcium Level 7.9L, Phosphorus Level 2.8, Magnesium Level 1.9, Triglycerides Level 109 07/07/21 09:13: Microbiology 07/03/21 Gram Stain - Final, Complete 07/03/21 Sputum Culture - Final, Complete Usual upper respiratory salma 07/03/21 Blood Culture - Preliminary, Resulted No growth 07/03/21 Urine Culture - Final, Complete 3 or more isolates Assessment/Plan Assessment/Plan Assess & Plan/Chief Complaint ARF likely secondary aspiration pneumonia. extubated. cont PT/OT. start dys1 diet. swallow eval ordered. DEBORAH SALGUERO MD Jul 07, 2021 10:31
--- NOTE | 2021-07-07 10:38 | Physical Therapy Evaluation ---
PT Evaluation-General Medical Diagnosis Admission Date Jul 03, 2021 at 16:15 Medical Diagnosis: Acute respiratory failure Onset Date: Jul 03, 2021 Therapy Diagnosis Therapy Diagnosis: Impaired mobility, limited activity Height/Weight Height (Feet): 5 Height (Inches): 4.00 Weight (Pounds): 166 Weight (Ounces): 3.0 Precautions Precautions/Isolations: Fall Prevention, Standard Precautions Referral Physician: Jailene Sneed DO Reason for Referral: Evaluation/Treatment Medical History Pertinent Medical History: Atrial Fib, Arthritis, CAD, CVA, GERD, HTN, OA, Parkinson's, Smoking Additional Medical History (R) hip ORIF (3 weeks ago), (L) hip hemiarthroplasty (3 years ago) Current History Receiving rehab after hip repair at [facility]. Nursing noted respiratory distress. Sent to hospital via EMS. Intubated Saturday and extubated this . Reviewed History: Yes Social History Home: Single Level Current Living Status: Children Entry Into Home: Stairs With Railing PT Steps Into Home: 2 PT Steps Inside Home: 0 Prior Prior Level of Function SCALE: Activities may be completed with or without assistive devices. 7-Rcvgbgxifd-qwrvwxb completes the activity by him/herself with no assistance from a helper. 5-Set-up or Clean-up Assistance-helper sets up or cleans up; patient completes activity. [place] assists only prior to or following the activity. 4-Supervision or Touching Assistance-helper provides verbal cues and/or touching/steadying and/or contact guard assistance as patient completes activity. Assistance may be provided throughout the activity or intermittently. 3-Partial/Moderate Assistance-helper does LESS THAN HALF the effort. [place] lifts, holds or supports trunk or limbs, but provides less than half the effort. 2-Substantial/Maximal Assistance-helper does MORE THAN HALF the effort. [place] lifts or holds trunk or limbs and provides more than half the effort. 2-Nrpwcbeya-qrcgzz does ALL the effort. Patient does none of the effort to c omplete the activity. Or, the assistance of 2 or more helpers is required for the patient to complete the activity. If activity was not attempted, code reason: 7-Patient Refused. 9-Not Applicable-not attempted and the patient did not perform the activity before the current illness, exacerbation or injury. 10-Not Attempted due to Environmental Limitations-(lack of equipment, weather restraints, etc.). 88-Not Attempted due to Medical Conditions or Safety Concerns. Bed Mobility: 6 Transfers (B,C,W/C): 6 Gait: 6 Stairs: 6 Indoor Mobility (Ambulation): Independent Stairs: Independent Prior Devices Use: Walker Son lives with him to assist with ADLs. PT Evaluation-Current Subjective Pt having difficulty speaking after extubation. He was able to communicate via his daughter. No pain reported. Pt/Family Goals Return home. Objective Patient Orientation: Person, Place Attachments: Oxygen, [place] Catheter, IV ROM/Strength ROM Upper Extremities Limited (B) shoulder ROM s/p vent. ROM Lower Extremities WFL Strength Upper Extremities 3/5 (B) UE gross MMT Strength Lower Extremities 3/5 (B) LE gross MMT Neuromuscular (Tone, Coordination, Reflexes) Sensation and reflexes are intact (B) Sensory Vision: Functional Hearing: Functional Sensation Right Upper Extremit: Intact Sensation Left Upper Extremity: Intact Sensation Right Lower Extremit: Intact Sensation Left Lower Extremity: Intact Transfers Roll Left to Right (QC): 88 Sit to Lying (QC): 88 Lying to Sitting/Side of Bed(Q: 88 Sit to Stand (QC): 88 Gait Does the Patient Walk?: No and Walking Goal IS indicated Mode of Locomotion: Walk Anticipated Mode of Locomotion: Walk Gait Assistive Device: FWW Wheelchair Training Does the Pt Use a Wheelchair?: No Assessment/Needs Pt was not able to attempt sitting up due to fatigue and weakness. He was able to participate with LE ROM (B). Rehab Potential: Good PT Sustainability Executive Director Goals Sustainability Executive Director Goals PT Sustainability Executive Director Goals Time Frame: Jul 21, 2021 Roll Left & Right (QC): 5 Sit to Lying (QC): 5 Lying-Sitting on Side/Bed(QC): 5 Sit to Stand (QC): 5 Chair/Teh-tf-Niuoo Xfer(QC): 5 Toilet Transfer (QC): 5 Does the Patient Walk: Yes Walk 10 feet (QC): 5 Walk 50ft with 2 Turns (QC): 5 1 Step (curb) (QC): 5 4 Steps (QC): 5 PT Plan Problem List Problem List: Activity Tolerance, Functional Strength, Balance, Gait, Transfer, Bed Mobility Treatment/Plan Treatment Plan: Continue Plan of Care Treatment Plan: Bed Mobility, Concurrent Therapy, Functional Activity Vandana, Functional Strength, Gait, Therapeutic Exercise, Transfers Treatment Duration: Jul 21, 2021 Frequency: 6 times per week Estimated Hrs Per Day: .5 hour per day Patient and/or Family Agrees t: Yes Time/GCodes Time In: 954 Time Out: 1020 Total Billed Treatment Time: 25 Total Billed Treatment 1, danilo 25 ANCA [place] PT Jul 07, 2021 10:38
--- NOTE | 2021-07-07 10:48 | Occupational Therapy Eval ---
OT Evaluation-General/PLF Medical Diagnosis Admission Date Jul 03, 2021 at 16:15 Medical Diagnosis: acute respiratory failure Onset Date: Jul 03, 2021 Therapy Diagnosis Therapy Diagnosis: decreased ADL status. Height/Weight Height (Feet): 5 Height (Inches): 4.00 Weight (Pounds): 166 Weight (Ounces): 3.0 Precautions Precautions/Isolations: Fall Prevention, Standard Precautions Medical History Pertinent Medical History: Atrial Fib, Arthritis, CAD, CVA, GERD, HTN, OA, Parkinson's, Smoking Additional Medical History Hypertension Parkinson's Disease, Stroke Benign Prostatic Hyperpl, Prostate Problems, Kidney Stones Abdominal Hernia, Chronic Constipation, Hiatal Hernia, Ulcer Degenerate Disk Disease, Arthritis, Chronic Back Pain, Fractures Cataract (R) hip ORIF (3 weeks ago), (L) hip hemiarthroplasty (3 years ago) Current History At SNF (due to recent hip fx), he was noted to be less responseive and hypoxic. He was placed on O2 and EMS called. At ER, pt agreeable to intubation.Chest tube placed. Pt extubated 07/07/21. Social History Home: Senior Living (SNF) ADL-Prior Level of Function SCALE: Activities may be completed with or without assistive devices. 4-Rzaslijihk-dwljbxk completes the activity by him/herself with no assistance from a helper. 5-Set-up or Clean-up Assistance-helper sets up or cleans up; patient completes activity. [place] assists only prior to or following the activity. 4-Supervision or Touching Assistance-helper provides verbal cues and/or touching/steadying and/or contact guard assistance as patient completes activity. Assistance may be provided throughout the activity or intermittently. 3-Partial/Moderate Assistance-helper does LESS THAN HALF the effort. [place] lifts, holds or supports trunk or limbs, but provides less than half the effort. 2-Substantial/Maximal Assistance-helper does MORE THAN HALF the effort. [place] lifts or holds trunk or limbs and provides more than half the effort. 2-Jogbltvgm-ggukmy does ALL the effort. Patient does none of the effort to complete the activity. Or, the assistance of 2 or more helpers is required for the patient to complete the activity. If activity was not attempted, code reason: 7-Patient Refused. 9-Not Applicable-not attempted and the patient did not perform the activity befo re the current illness, exacerbation or injury. 10-Not Attempted due to Environmental Limitations-(lack of equipment, weather re straints, etc.). 88-Not Attempted due to Medical Conditions or Safety Concerns. ADL PLOF Comments Pt lived with family prior to SNF. At [facility], pt was able to complete a ADLs with min A to SBA. He has a tub/shower with transfer bench and grab bars. Since his hip fx, he was residing at SNF. PLOF since hip surgery unknown as pt had difficulty communicating due to hoarse voice post extubation. Self Care: Needed Some Help OT Current Status Subjective Pt laying in bed, his voice was very hoarse so pt unable to communicate well. Current Upper Extremity ROM Decreased all planes. Pt able to perform shoulder flexion enough to lift his arms off of a pillow a little bit. LUE elbow flexion limited, increased tone with PROM. Pt's daughter states LUE affected by previous CVA. Upper Extremity Coordination decreased Upper Extremity Sensation Pt's daughter states LUE decreased since stroke. Upper Extremity Strength grossly 2/5 ADL-Treatment Eating (QC): 2 (per clincial judgment, pt would require assistance with bringing food to mouth due to weakness.) Shower/Bathe Self (QC): 1 (Per clincial judgment.) Lower Body Dressing (QC): 1 (Per clincial judgment.) On/Off Footwear (QC): 1 (Per clincial judgment.) Other Treatments Pt laying in bed, agreeable to OT Tx. Pt performed UE screen, then OT performed x10 reps each PROM BUE all joints. Noted increased tone with L elbow flexion. Pt assisted in turning TV on and finding a channel he enjoys. Post tx, pt in bed, call light in reach and all needs met. Education OT Patient Education: Correct positioning, Energy conservation, Exercise program, Modified ADL techniques, Progress toward Goal/Update tx plan, Purpose of tx/functional activities, Rehab process Teaching Recipient: Patient Teaching Methods: Discussion Response to Teaching: Verbalize Understanding OT Retirement Goals Stick Welder Goals Time Frame: Jul 21, 2021 Eating (QC): 5 Oral Hygiene (QC): 5 Toileting Hygiene (QC): 3 Shower/Bathe Self (QC): 3 Upper Body Dressing (QC): 4 Lower Body Dressing (QC): 3 On/Off Footwear (QC): 3 Additional Goals: 1-Demonstrate ADL Tasks, 2-Verbalize Understanding, 3- ImproveStrength/Vandana 1=Demonstrate adherence to instructed precautions during ADL tasks. 2=Patient will verbalize/demonstrate understanding of assistive devices/modifications for ADL. 3=Patient will improve strength/tolerance for activity to enable patient to perform ADL's. OT Education/Plan Problem List/Assessment Assessment: Decreased Activ Tolerance, Decreased UE Strength, Impaired Funct Balance, Impaired I ADL's, Impaired Self-Care Skills, Restricted Funct UE ROM Discharge Recommendations Plan/Recommendations: Continue POC Treatment Plan/Plan of Care Patient would benefit from OT for education, treatment and training to promote independence in ADL's, mobility, safety and/or upper extremity function for ADL's. Plan of Care: ADL Retraining, Functional Mobility, UE Funct Exercise/Act Treatment Duration: Jul 21, 2021 Frequency: 3 times per week (3-5 times per week.) Time/GCodes Start Time: 10:20 Stop Time: 10:37 Total Time Billed (hr/min): 17 Billed Treatment Time 1, SHAKA PIERRE OT Jul 07, 2021 10:48
--- NOTE | 2021-07-07 11:10 | Progress Note - Hospitalist ---
Subjective HPI/CC On Admission Date Seen by Provider: Jul 07, 2021 Time Seen by Provider: 09:15 Subjective/Events-last exam He has now been extubated. He reports a sore throat. He denies any other pain. He is not short of breath. Focused Exam Time of Focused Exam: 15:58 Objective Exam Vital Signs Vital Signs Date Time Temp Pulse Resp B/P (MAP) Pulse Ox O2 Delivery O2 Flow Rate FiO2 07/07/21 10:30 37.3 85 30 82/59 (67) 97 Mechanical Ventilator 28.00 07/07/21 08:19 28 Capillary Refill : Greater Than 3 Seconds General Appearance: Chronically ill, Mild Distress (tachypnea) Respiratory: Decreased Breath Sounds, Respiratory Distress (tachypnea) Cardiovascular: Regular Rate, Rhythm, No Edema, No Murmur Gastrointestinal: Normal Bowel Sounds, Non Tender, Soft Extremity: Normal Inspection, Non Tender, No Pedal Edema Neurologic/Psychiatric: Alert, No Motor/Sensory Deficits, Depressed Affect Skin: Normal Color, Warm/Dry Results/Procedures Lab Laboratory Tests 07/07/21 05:00 Patient resulted labs reviewed. Assessment/Plan Assessment and Plan Assess & Plan/Chief Complaint Septic shock due to PNA Acute respiratory failure with hypoxia Acute kidney injury Atrial fibrillation History of hemorrhagic stroke Parkinson's Recent hip fracture Thrombocytopenia Extubated today 07/07 IV antibiotics IV fluids TeleICU following Cardiology following Holding Heparin/Lovenox due to thrombocytopenia Checking HIIT antibody DVT prophylaxis: held due to thrombocytopenia, SCDs Pneumothorax, resolved Endotracheally intubated, resolved Critical Care Critically Ill Patient Diagnosis/Problems Diagnosis/Problems (1) Acute respiratory failure Status: Acute Qualifiers: Respiratory failure complication: hypoxia Qualified Codes: J96.01 - Acute respiratory failure with hypoxia (2) PNA (pneumonia) Status: Acute (3) Endotracheally intubated Status: Acute (4) LUZ MARINA (acute kidney injury) Status: Acute (5) Afib Status: Chronic (6) Pneumothorax Status: Resolved Resolution Date/Time: 07/06/21 @ 19:11 (7) Septic shock Status: Resolved Resolution Date/Time: 07/06/21 @ 19:11 SARKIS COTA MD Jul 07, 2021 11:10
[2021-07-07] MEDS: CHLORASEPTIC SPRAY 177 ML LIQUID MC PRN ×2 (13:22→16:07)
[2021-07-07] MEDS: ACETAMINOPHEN 325 MG TABLET PO PRN (16:06)
[2021-07-08] VITALS (7 sets, daily range): BP systolic 106–127; BP diastolic 62–75
[2021-07-08] MEDS: LACTATED RINGERS 1,000 ML IV SCH ×3 (01:21→16:32)
[2021-07-08] MEDS: RT-ALBUTEROL/IPRATROPIUM 3 ML (DUONEB) VIAL INH SCH ×6 (02:52→22:32)
[2021-07-08] MEDS: MAGNESIUM 1 GM/100 ML IVPB 100 ML IV SCH ×2 (05:58→07:32)
[2021-07-08] MEDS: KCL 20 MEQ TAB (K-DUR) PO SCH (05:58)
[2021-07-08] MEDS: POTASSIUM CL 10MEQ/50ML IVPB 50 ML IV SCH ×2 (05:58→07:14)
[2021-07-08] MEDS: inSUlin ASPART (NovoLOG) 1 UNIT/0.01 ML (CHARGE PER UNIT) SC SCH ×4 (06:05→20:39)
[2021-07-08 07:08] LABS: POTASSIUM 3.9 MMOL/L (3.6-5.0)
[2021-07-08 07:09] LABS: CALCIUM 8.2 MG/DL (8.5-10.1)
[2021-07-08 07:14] LABS: CREATININE SERUM 0.6 MG/DL (0.60-1.30); PHOSPHORUS 3.1 MG/DL (2.3-4.7)
[2021-07-08 07:16] LABS: MAGNESIUM 1.9 MG/DL (1.6-2.4)
[2021-07-08] MEDS: PANTOPRAZOLE 40 MG (PROTONIX) VIAL IV SCH (08:34)
--- NOTE | 2021-07-08 09:09 | Progress Note ---
Subjective Subjective Date Seen by Provider: Jul 08, 2021 Time Seen by Provider: 09:40 PT REPORTS THAT HE IS FEELING BETTER AND SHERRI TO BE ALIVE. PT'S FAMILY IS IN ROOM, REPORTS THAT SALUD IS FREQUENTLY TEARFUL SINCE HIS STROKE. FAMILY REPORTS THAT HE USUALLY TAKES SERTRALINE AND IS WONDERING ABOUT RESTARTING THIS MEDICATION. PT COMPLAINS OF BEING UNCOMFORTABLE IN HIS NECK FROM THE CENTRAL LINE Review of Systems ROS Unable to Obtain: Unable to provide due to intubated General: No Chills, No Night Sweats; Fatigue, Malaise; No Appetite, No Other HEENT: No Head Aches, No Visual Changes, No Eye Pain, No Ear Pain, No Dysphasia, No Sinus Congestion, No Post Nasal Drip, No Sore Throat, No Other Pulmonary: No Dyspnea, No Cough, No Pleuritic Chest Pain, No Other Cardiovascular: No: Chest Pain, Palpitations, Orthopnea, Paroxysmal Noc. Dyspnea, Edema, Lt Headedness, Other Genitourinary: Other (CHASE IN PLACE) Neurological: Weakness All Other Systems Reviewed All Other Systems Reviewed: Yes Objective Exam Vital Signs Vital Signs Date Time Temp Pulse Resp B/P (MAP) Pulse Ox O2 Delivery O2 Flow Rate FiO2 07/08/21 08:40 36.8 83 20 106/64 (78) 93 Room Air 07/08/21 06:45 98 Room Air 07/08/21 03:54 36.3 89 18 107/62 (77) Room Air 07/08/21 02:54 98 Room Air 07/07/21 23:30 36.2 83 16 119/61 (80) 95 Room Air 07/07/21 23:01 94 Room Air 07/07/21 20:02 Room Air 07/07/21 20:00 36.8 80 23 110/64 (79) 93 Room Air 07/07/21 18:51 93 Room Air 07/07/21 15:55 36.4 94 22 104/59 (74) 92 Room Air 07/07/21 14:52 94 Room Air 07/07/21 14:32 36.8 88 24 98/62 (74) 92 Nasal Cannula 2.00 07/07/21 13:36 97 Room Air 07/07/21 13:00 37.4 85 25 101/63 (76) 97 High Flow N/C 2.00 07/07/21 12:45 37.4 84 30 101/63 (76) 98 High Flow N/C 2.00 07/07/21 12:32 87 07/07/21 12:30 37.4 82 26 105/63 (77) 95 High Flow N/C 2.00 07/07/21 12:15 37.4 83 53 100/63 (75) 97 High Flow N/C 2.00 07/07/21 12:00 98 Room Air 07/07/21 12:00 79 29 90/55 (67) 98 Mechanical Ventilator 28.00 07/07/21 11:45 37.4 77 28 96/59 (71) 98 High Flow N/C 2.00 07/07/21 11:42 99 Room Air 07/07/21 11:30 37.4 73 26 98/75 (83) 98 High Flow N/C 2.00 07/07/21 11:15 37.3 83 27 98/75 (83) 98 High Flow N/C 2.00 07/07/21 11:00 37.3 80 28 93/58 (70) 98 High Flow N/C 2.00 07/07/21 10:45 37.3 80 28 97/82 (87) 97 High Flow N/C 2.00 07/07/21 10:30 37.3 85 30 82/59 (67) 97 High Flow N/C 2.00 07/07/21 10:15 37.3 82 27 94/62 (73) 98 High Flow N/C 2.00 07/07/21 10:00 37.3 78 28 93/58 (70) 96 High Flow N/C 2.00 07/07/21 10:00 96 High Flow N/C 1.00 07/07/21 09:45 37.3 82 31 95/58 (70) 97 High Flow N/C 2.00 07/07/21 09:30 37.3 78 28 94/57 (69) 98 High Flow N/C 2.00 07/07/21 09:30 98 High Flow N/C 2.00 07/07/21 09:15 37.3 82 28 82/61 (68) 99 High Flow N/C 2.00 I & O 07/08/21 07:00 Intake Total 2810 ml Output Total 2050 ml Balance 760 ml General Appearance: Chronically ill, Mild Distress (tachypnea) Eyes: Bilateral Eye Normal Inspection, Bilateral Eye PERRL, Bilateral Eye EOMI HEENT: PERRL/EOMI Neck: Full Range of Motion Respiratory: Lungs Clear, Rales (few) Cardiovascular: Regular Rate, Rhythm, Normal Peripheral Pulses Gastrointestinal: Normal Bowel Sounds, Non Tender, Soft Rectal: Deferred Genital/Rectal: Other (chase in place) Extremity: Normal Inspection, Non Tender, No Pedal Edema Neurologic/Psychiatric: Alert, No Motor/Sensory Deficits, Depressed Affect Skin: Normal Color, Warm/Dry Lymphatic: No Adenopathy Results Lab Laboratory Tests 07/07/21 09:13: 07/07/21 16:06: Glucometer 88 07/07/21 20:59: Glucometer 97 07/08/21 06:02: Glucometer 74 07/08/21 06:54: Sodium Level 142, Potassium Level 3.9, Chloride Level 113H, Carbon Dioxide Level 20L, Anion Gap 9, Blood Urea Nitrogen 8, Creatinine 0.60, Estimat Glomerular Filtration Rate 129, BUN/Creatinine Ratio 13, Glucose Level 84, Calcium Level 8.2L, Phosphorus Level 3.1, Magnesium Level 1.9 Microbiology 07/03/21 Gram Stain - Final, Complete 07/03/21 Sputum Culture - Final, Complete Usual upper respiratory salma 07/03/21 Blood Culture - Preliminary, Resulted No growth 07/03/21 Urine Culture - Final, Complete 3 or more isolates Assessment/Plan Assessment/Plan Admission Dx ACUTE RESPIRATORY FAILURE PNEUMONIA WITH SEPTIC SHOCK ACUTE RENAL FAILURE ATRIAL FIBRILLATION RECENT SURGICAL INTERVENTION OF HIP REMOTE HX OF HEMORRHAGIC STROKE PARKINSON'S DISEASE GENERALIZED WEAKNESS DEPRESSION Assessment and Plan ACUTE RESPIRATORY FAILURE PNEUMONIA WITH SEPTIC SHOCK LOVENOX INDUCED THROMBOCYTOPENIA ACUTE RENAL FAILURE ATRIAL FIBRILLATION RECENT SURGICAL INTERVENTION OF HIP REMOTE HX OF HEMORRHAGIC STROKE PARKINSON'S DISEASE GENERALIZED WEAKNESS DEPRESSION RECENT EXTUBATION BPH URINARY RETENTION ACUTE RESPIRATORY FAILURE WITH PNEUMONIA WITH SEPTIC SHOCK - IMPROVED PULMONARY STATUS - CONTINUE WITH IV ANTIBIOTICS - MONITOR CHEST XRAY LOVENOX INDUCED THROMBOCYTOPENIA - IMPROVED PLT LEVEL OFF OF LOVENOX. - MONITOR LABS IN MORNING ACUTE RENAL FAILURE - IMPROVED - CONTINUE WITH FLUIDS ATRIAL FIBRILLATION - PT OFF OF ANTICOAGULATION AT THIS TIME DUE TO THROMBOCYTOPENIA DUE TO LOVENOX. RECENT SURGICAL INTERVENTION OF HIP REMOTE HX OF HEMORRHAGIC STROKE - SUPPORTIVE CARE, THERAPY INITIATED PARKINSON'S DISEASE - MEDICATIONS RESTARTED TODAY - CARBIDOPA/LEVODOPA DEPRESSION - SERTRALINE RESTARTED TODAY RECENT EXTUBATION - PT IMPROVED - REPEAT CXR TODAY BPH WITH URINARY RETENTION - RESTART BETHANECHOL AND FLOMAX PAUL JUAREZ MD Jul 08, 2021 09:09
--- NOTE | 2021-07-08 10:00 | Progress Note ---
Subjective Date Seen by a Provider: Jul 08, 2021 Time Seen by a Provider: 09:40 Subjective/Events-last exam Patient seen with Dr. Santiago. Patient reports doing ok. Does report it hurts to swallow at times, but tolerating diet. Reports throat is "sore". Denies any N/V as well as no fever or chills. Focused Exam Time of Focused Exam: 15:58 Objective Exam Vital Signs Date Time Temp Pulse Resp B/P (MAP) Pulse Ox O2 Delivery O2 Flow Rate FiO2 07/08/21 08:40 36.8 83 20 106/64 (78) 93 Room Air 07/08/21 08:00 Room Air 07/08/21 06:45 98 Room Air 07/08/21 03:54 36.3 89 18 107/62 (77) Room Air 07/08/21 02:54 98 Room Air 07/07/21 23:30 36.2 83 16 119/61 (80) 95 Room Air 07/07/21 23:01 94 Room Air 07/07/21 20:02 Room Air 07/07/21 20:00 36.8 80 23 110/64 (79) 93 Room Air 07/07/21 18:51 93 Room Air 07/07/21 15:55 36.4 94 22 104/59 (74) 92 Room Air 07/07/21 14:52 94 Room Air 07/07/21 14:32 36.8 88 24 98/62 (74) 92 Nasal Cannula 2.00 07/07/21 13:36 97 Room Air 07/07/21 13:00 37.4 85 25 101/63 (76) 97 High Flow N/C 2.00 07/07/21 12:45 37.4 84 30 101/63 (76) 98 High Flow N/C 2.00 07/07/21 12:32 87 07/07/21 12:30 37.4 82 26 105/63 (77) 95 High Flow N/C 2.00 07/07/21 12:15 37.4 83 53 100/63 (75) 97 High Flow N/C 2.00 07/07/21 12:00 98 Room Air 07/07/21 12:00 79 29 90/55 (67) 98 Mechanical Ventilator 28.00 07/07/21 11:45 37.4 77 28 96/59 (71) 98 High Flow N/C 2.00 07/07/21 11:42 99 Room Air 07/07/21 11:30 37.4 73 26 98/75 (83) 98 High Flow N/C 2.00 07/07/21 11:15 37.3 83 27 98/75 (83) 98 High Flow N/C 2.00 07/07/21 11:00 37.3 80 28 93/58 (70) 98 High Flow N/C 2.00 07/07/21 10:45 37.3 80 28 97/82 (87) 97 High Flow N/C 2.00 07/07/21 10:30 37.3 85 30 82/59 (67) 97 High Flow N/C 2.00 07/07/21 10:15 37.3 82 27 94/62 (73) 98 High Flow N/C 2.00 07/07/21 10:00 37.3 78 28 93/58 (70) 96 High Flow N/C 2.00 07/07/21 10:00 96 High Flow N/C 1.00 I & O 07/08/21 07:00 Intake Total 2810 ml Output Total 2050 ml Balance 760 ml Capillary Refill : Greater Than 3 Seconds General Appearance: No Apparent Distress, WD/WN Neck: Normal Inspection, Supple Respiratory: No Accessory Muscle Use, No Respiratory Distress Cardiovascular: Regular Rate, Rhythm, No Edema Gastrointestinal: normal bowel sounds, non tender, soft Neurologic/Psychiatric: Alert, Oriented x3 Skin: Normal Color, Warm/Dry Results Lab Laboratory Tests 07/07/21 16:06: Glucometer 88 07/07/21 20:59: Glucometer 97 07/08/21 06:02: Glucometer 74 07/08/21 06:54: Sodium Level 142, Potassium Level 3.9, Chloride Level 113H, Carbon Dioxide Level 20L, Anion Gap 9, Blood Urea Nitrogen 8, Creatinine 0.60, Estimat Glomerular Filtration Rate 129, BUN/Creatinine Ratio 13, Glucose Level 84, Calcium Level 8.2L, Phosphorus Level 3.1, Magnesium Level 1.9 Microbiology 07/03/21 Gram Stain - Final, Complete 07/03/21 Sputum Culture - Final, Complete Usual upper respiratory salma 07/03/21 Blood Culture - Preliminary, Resulted No growth 07/03/21 Urine Culture - Final, Complete 3 or more isolates Assessment/Plan Assessment/Plan Assess & Plan/Chief Complaint ARF likely secondary aspiration pneumonia. VSS cont PT/OT. Continue diet. swallow eval ordered. DAMARI MENDOZA [employer] WORK[employer] Jul 08, 2021 09:59
--- NOTE | 2021-07-08 10:06 | Cardiology Progress Note ---
Subjective Date Seen by Provider: Jul 08, 2021 Time Seen by Provider: 10:04 Subjective/Events-last exam Patient is laying down in bed, feeling better, still having sore throat Review of Systems General: No Chills, No Night Sweats; Fatigue, Malaise; No Appetite, No Other HEENT: No Head Aches, No Visual Changes, No Eye Pain, No Ear Pain, No Dysphasia, No Sinus Congestion, No Post Nasal Drip, No Sore Throat, No Other Pulmonary: No Dyspnea, No Cough, No Pleuritic Chest Pain, No Other Cardiovascular: No: Chest Pain, Palpitations, Orthopnea, Paroxysmal Noc. Dyspnea, Edema, Lt Headedness, Other Focused Exam Time of Focused Exam: 15:58 Objective-Cardiology Exam Last Set of Vital Signs Vital Signs 07/07/21 07/07/21 07/08/21 08:19 14:32 08:40 Temp 36.8 Pulse 83 Resp 20 B/P (MAP) 106/64 (78) Pulse Ox 93 O2 Delivery Room Air O2 Flow Rate 2.00 FiO2 28 I&O Intake and Output 07/08/21 00:00 Intake Total 2260 ml Output Total 3225 ml Balance -965 ml Intake Oral 350 ml IV Total 1240 ml Tube Feeding 420 ml Other 250 ml Output Urine Total 3225 ml # Bowel Movements 2 General: Alert, Oriented X3, Cooperative, No Acute Distress HEENT: Atraumatic Neck: Supple, No JVD Lungs: Other (bilat rhonchi) Heart: Regular Rate, Normal S1, Normal S2 Abdomen: Soft, No Tenderness Extremities: No Clubbing, No Edema Skin: No Rashes, No Significant Lesion Neuro: Normal Speech Psych/Mental Status: Mental Status NL, Mood NL Results Lab Laboratory Tests 07/08/21 06:54 A/P-Cardiology Admission Diagnosis Acute respiratory failure Hypotensive shock Lactic acidosis Cardiac pacemaker Assessment/Plan Status post acute respiratory failure, extubated, doing better CT chest showed bibasilar parenchymal consolidation, left greater. The left four vent chest tube does appear to be intraparenchymal in the left upper lobe with some surrounding left upper lobe hemorrhage. There was a small to moderate residual left-sided pneumothorax present. Dr. Forde was consulted, Thora vent was removed on July 05, 2021 with no complication Continue on antibiotic and monitor. Sepsis, pneumonia, receiving antibiotic and managed by primary care team. Status post hypotension, blood pressure is better today, continue to monitor. Chronic persistent atrial fibrillation, has history of sinus node dysfunction and permanent pacemaker, currently in AV paced rhythm. Continue to monitor History of intracranial bleed after trauma, history of embolic stroke and hemorrhagic stroke, unable to tolerate long-term oral anticoagulation, had left atrial appendage clip done at in the past. Continue to monitor Permanent pacemaker, generator replaced in April 2020, good sensing and capture activity. Anemia, received blood transfusion on 06/06/2021, continue to monitor History of hypertension, currently normotensive, was initially hypotensive on admission to the hospital. History of seizure disorder. No witnessed seizure activity. Continue to monitor Mild bilateral carotid stenosis, continue to monitor Hyperlipidemia, monitor lipids KEDAR BOYKIN MD Jul 08, 2021 10:06
--- NOTE | 2021-07-08 10:12 | Physical Therapy Daily Note ---
PT Daily Note-Current Subjective Pt is alert and agreeable to treatment. Pt states, "I want to get up and get going. I have work to do." Pain Numeric Pain Scale: 2 Location: Right Location Body Site: Hip Pain Description: Ache Mental Status Patient Orientation: Person, Place, Time, Situation Pt is now able to speak more clearly and was able to discuss his condition and plans. Transfers SCALE: Activities may be completed with or without assistive devices. 9-[id number]-[id number] completes the activity by him/herself with no assistance from a helper. 5-Set-up or Clean-up Assistance-helper sets up or cleans up; patient completes activity. [place] assists only prior to or following the activity. 4-Supervision or Touching Assistance-helper provides verbal cues and/or touching/steadying and/or contact guard assistance as patient completes activity. Assistance may be provided throughout the activity or intermittently. 3-Partial/Moderate Assistance-helper does LESS THAN HALF the effort. [place] lifts, holds or supports trunk or limbs, but provides less than half the effort. 2-Substantial/Maximal Assistance-helper does MORE THAN HALF the effort. [place] lifts or holds trunk or limbs and provides more than half the effort. 7-Eftdcjjpu-ftgirj does ALL the effort. Patient does none of the effort to complete the activity. Or, the assistance of 2 or more helpers is required for the patient to complete the activity. If activity was not attempted, code reason: 7-Patient Refused. 9-Not Applicable-not attempted and the patient did not perform the activity before the current illness, exacerbation or injury. 10-Not Attempted due to Environmental Limitations-(lack of equipment, weather restraints, etc.). 88-Not Attempted due to Medical Conditions or Safety Concerns. Roll Left & Right (QC): 1 Sit to Lying (QC): 1 Lying to Sitting/Side of Bed(Q: 1 Pt required total assist for all aspects of the transfer to sitting edge of bed. He required total assist to sit upright at edge of bed. He was able to sit for ~30 seconds before requesting to return to supine. No reason given. Gait Training Does the Patient Walk?: No and Walking Goal IS indicated Exercises Supine Ex: LE Protocol Supine Reps: 20 Pt was able to provide ~20% assist for (R) LE ex and ~10% assist for (L) LE during supine exercises. Assessment Current Status: Fair Progress Pt is participating more with treatment today than he was able to yesterday. He remains at total assist for mobility. PT Correction Goals Correction Goals PT Java Security Engineer Goals Time Frame: Jul 21, 2021 Roll Left & Right (QC): 5 Sit to Lying (QC): 5 Lying-Sitting on Side/Bed(QC): 5 Sit to Stand (QC): 5 Chair/[id number]-Xfjiu Xfer(QC): 5 Toilet Transfer (QC): 5 Does the Patient Walk: Yes Walk 10 feet (QC): 5 Walk 50ft with 2 Turns (QC): 5 1 Step (curb) (QC): 5 4 Steps (QC): 5 PT Plan Treatment/Plan Treatment Plan: Continue Plan of Care Treatment Plan: Bed Mobility, Concurrent Therapy, Functional Activity Vandana, Functional Strength, Gait, Therapeutic Exercise, Transfers Treatment Duration: Jul 21, 2021 Frequency: 6 times per week Estimated Hrs Per Day: .5 hour per day Patient and/or Family Agrees t: Yes Time/GCodes Time In: 0950 Time Out: 1006 Total Billed Treatment Time: 16 Total Billed Treatment 1, ex 16 ANCA OH PT Jul 08, 2021 10:12
--- NOTE | 2021-07-08 12:16 | Diagnostic Imaging Report ---
Recent extubation. Pneumonia EXAMINATION: Chest 07/08/2021 COMPARISON: 07/06/2021 FINDINGS: There are low lung volumes with bibasal atelectasis versus infiltrate left worse than right. There are tiny bilateral pleural effusions. There is no pneumothorax. There is cardiomegaly with mild pulmonary vascular congestion. Left-sided pacemaker stable. There is a right jugular line with the tip poorly seen. The feeding tube and ET tube have been removed. IMPRESSION: 1. Bibasal infiltrate left greater than right with small bilateral pleural effusions. Other findings as above. Dictated by: Dictated on workstation # [id number]
[2021-07-08] MEDS: DIVALPROEX 250 MG DELAYED RELEASE (DEPAKOTE) TAB PO SCH ×2 (12:30→17:27)
[2021-07-08] MEDS: ACETAMINOPHEN 325 MG TABLET PO PRN (12:32)
[2021-07-08] MEDS: TAMSULOSIN 0.4 MG (FLOMAX) CAP PO SCH (17:26)
[2021-07-08] MEDS: BETHANECHOL 25 MG (URECHOLINE) TAB PO SCH (17:27)
[2021-07-08] MEDS: SINEMET CR 50/200 (CARBIDOPA/LEVODOPA SA) TAB PO SCH (17:27)
[2021-07-08] MEDS: SERTRALINE 50 MG (ZOLOFT) TABLET PO SCH (20:43)
[2021-07-09] MEDS: RT-ALBUTEROL/IPRATROPIUM 3 ML (DUONEB) VIAL INH SCH ×6 (02:41→22:06)
[2021-07-09 04:08] VITALS: BP 116/60
[2021-07-09] MEDS: LACTATED RINGERS 1,000 ML IV SCH ×2 (04:30→22:49)
[2021-07-09 05:00] LABS: EOSINOPHILS % (AUTO) 8 % (0-10); HEMOGLOBIN 10.3 g/dL (13.3-17.7)
[2021-07-09 05:02] LABS: BASOPHILS % (AUTO) 1 % (0-10); EOSINOPHILS # (AUTO) 0.5 10^3/uL (0.0-0.3); HEMATOCRIT 32 % (40-54); LYMPHOCYTES % (AUTO) 16 % (12-44); MEAN CORPUSCULAR HEMOGLOBIN 35 pg (25-34); MEAN CORPUSCULAR HGB CONC 32 g/dL (32-36); MEAN CORPUSCULAR VOLUME 110 fL (80-99); MEAN PLATELET VOLUME 10.6 fL (9.0-12.2); MONOCYTES # (AUTO) 0.8 10^3/uL (0.0-1.0); MONOCYTES % (AUTO) 12 % (0-12); NEUTROPHILS % (AUTO) 63 % (42-75); PLATELET COUNT 105 10^3/uL (130-400); WHITE BLOOD COUNT 6.4 10^3/uL (4.3-11.0)
[2021-07-09 05:09] LABS: ALBUMIN 2.4 GM/DL (3.2-4.5)
[2021-07-09 05:10] LABS: POTASSIUM 3.6 MMOL/L (3.6-5.0)
[2021-07-09 05:11] LABS: CALCIUM 8.2 MG/DL (8.5-10.1)
[2021-07-09 05:12] LABS: TOTAL PROTEIN 4.6 GM/DL (6.4-8.2)
[2021-07-09 05:14] LABS: BILIRUBIN,TOTAL 0.7 MG/DL (0.1-1.0)
[2021-07-09 05:15] LABS: PHOSPHORUS 2.9 MG/DL (2.3-4.7)
[2021-07-09 05:16] LABS: CREATININE SERUM 0.55 MG/DL (0.60-1.30)
[2021-07-09 05:18] LABS: MAGNESIUM 1.8 MG/DL (1.6-2.4)
[2021-07-09] MEDS: KCL 20 MEQ TAB (K-DUR) PO SCH (05:27)
[2021-07-09] MEDS: MAGNESIUM 1 GM/100 ML IVPB 100 ML IV SCH (05:28)
[2021-07-09] MEDS: inSUlin ASPART (NovoLOG) 1 UNIT/0.01 ML (CHARGE PER UNIT) SC SCH ×4 (05:29→20:08)
[2021-07-09] MEDS: SINEMET CR 50/200 (CARBIDOPA/LEVODOPA SA) TAB PO SCH ×2 (05:45→17:07)
[2021-07-09] MEDS: POTASSIUM CL 10MEQ/50ML IVPB 50 ML IV SCH (05:45)
[2021-07-09] MEDS: BETHANECHOL 25 MG (URECHOLINE) TAB PO SCH ×2 (05:45→17:07)
[2021-07-09] MEDS: DIVALPROEX 250 MG DELAYED RELEASE (DEPAKOTE) TAB PO SCH ×2 (05:45→17:07)
[2021-07-09] MEDS ORDERED: POTASSIUM CL 10MEQ/50ML IVPB 50 ML IV ONE (07:15)
--- NOTE | 2021-07-09 07:57 | Cardiology Progress Note ---
Subjective Date Seen by Provider: Jul 09, 2021 Time Seen by Provider: 07:56 Subjective/Events-last exam Patient is laying down in bed, feeling better today, still having some shortness of breath. Review of Systems General: No Chills, No Night Sweats; Fatigue, Malaise; No Appetite, No Other HEENT: No Head Aches, No Visual Changes, No Eye Pain, No Ear Pain, No Dysphas ia, No Sinus Congestion, No Post Nasal Drip, No Sore Throat, No Other Pulmonary: Dyspnea; No Cough, No Pleuritic Chest Pain, No Other Cardiovascular: No: Chest Pain, Palpitations, Orthopnea, Paroxysmal Noc. Dyspnea, Edema, Lt Headedness, Other Focused Exam Time of Focused Exam: 15:58 Objective-Cardiology Exam Last Set of Vital Signs Vital Signs 07/07/21 07/07/21 07/09/21 07/09/21 08:19 14:32 04:08 06:58 Temp 36.5 Pulse 88 Resp 19 B/P (MAP) 116/60 (78) Pulse Ox 98 O2 Delivery Room Air O2 Flow Rate 2.00 FiO2 28 I&O Intake and Output 07/09/21 00:00 Intake Total 1700 ml Output Total 975 ml Balance 725 ml Intake Oral 580 ml IV Total 1120 ml Output Urine Total 975 ml General: Alert, Oriented X3, Cooperative, No Acute Distress HEENT: Atraumatic Neck: Supple, No JVD Lungs: Other (bilat rhonchi) Heart: Regular Rate, Normal S1, Normal S2 Abdomen: Soft, No Tenderness Extremities: No Clubbing, No Edema Skin: No Rashes, No Significant Lesion Neuro: Normal Speech Psych/Mental Status: Mental Status NL, Mood NL Results Lab Laboratory Tests 07/09/21 04:37 A/P-Cardiology Admission Diagnosis Acute respiratory failure Hypotensive shock Lactic acidosis Cardiac pacemaker Assessment/Plan Status post acute respiratory failure, improved, still having some residual dyspnea CT chest showed bibasilar parenchymal consolidation, left greater. The left four vent chest tube does appear to be intraparenchymal in the left upper lobe with some surrounding left upper lobe hemorrhage. There was a small to moderate residual left-sided pneumothorax present. Dr. Forde was consulted, Thora vent was removed on July 05, 2021 with no complication Continue on antibiotic and monitor. Sepsis, pneumonia, receiving antibiotic and managed by primary care team. Status post hypotension, blood pressure is better, continue to monitor. Chronic persistent atrial fibrillation, has history of sinus node dysfunction and permanent pacemaker, currently in AV paced rhythm. Continue to monitor History of intracranial bleed after trauma, history of embolic stroke and hemorrhagic stroke, unable to tolerate long-term oral anticoagulation, had left atrial appendage clip done at in the past. Continue to monitor Permanent pacemaker, generator replaced in April 2020, good sensing and capture activity. Anemia, received blood transfusion on 06/06/2021, continue to monitor History of hypertension, currently normotensive, was initially hypotensive on admission to the hospital. History of seizure disorder. No witnessed seizure activity. Continue to monitor Mild bilateral carotid stenosis, continue to monitor Hyperlipidemia, monitor lipids KEDAR BOYKIN MD Jul 09, 2021 07:57
[2021-07-09 08:00] VITALS: BP 108/62
[2021-07-09] MEDS: ARTIFICAL TEARS 0.4 ML UNIT DOSE (REFRESH PLUS) OU SCH (08:34)
[2021-07-09] MEDS: PANTOPRAZOLE 40 MG (PROTONIX) VIAL IV SCH (08:34)
--- NOTE | 2021-07-09 08:47 | Progress Note ---
Subjective Subjective Date Seen by Provider: Jul 09, 2021 Time Seen by Provider: 08:47 PT DENIES CHEST PAIN, HE DOES HAVE SOME SHORTNESS OF BREATH THIS MORNING BUT DENIES IT BEING MORE THAN ON PREVIOUS DAYS. HE JUAN PABLO ABDOMINAL PAIN, NAUSEA Review of Systems ROS Unable to Obtain: Unable to provide due to intubated General: No Chills, No Night Sweats; Fatigue, Malaise; No Appetite, No Other HEENT: No Head Aches, No Visual Changes, No Eye Pain, No Ear Pain, No Dysphasia, No Sinus Congestion, No Post Nasal Drip, No Sore Throat, No Other Pulmonary: Dyspnea; No Cough, No Pleuritic Chest Pain, No Other Cardiovascular: No: Chest Pain, Palpitations, Orthopnea, Paroxysmal Noc. Dyspnea, Edema, Lt Headedness, Other Genitourinary: Other (CHASE IN PLACE) Neurological: Weakness, Confusion (INTERMITTENT) All Other Systems Reviewed All Other Systems Reviewed: Yes Objective Exam Vital Signs Vital Signs Date Time Temp Pulse Resp B/P (MAP) Pulse Ox O2 Delivery O2 Flow Rate FiO2 07/09/21 08:00 36.6 87 22 108/62 (77) 92 Room Air 07/09/21 06:58 98 Room Air 07/09/21 04:08 36.5 88 19 116/60 (78) 91 Room Air 07/09/21 02:40 98 Room Air 07/08/21 23:12 36.3 89 18 122/72 (89) 94 Room Air 07/08/21 22:32 98 Room Air 07/08/21 19:38 37.2 88 20 127/75 (92) 92 Room Air 07/08/21 19:24 Room Air 07/08/21 19:04 98 Room Air 07/08/21 15:50 100 Room Air 07/08/21 15:47 36.8 83 20 112/67 (82) 94 Room Air 07/08/21 11:24 36.6 86 16 124/70 (88) 93 Room Air 07/08/21 10:58 36.6 86 16 124/70 (88) 93 Room Air 07/08/21 10:37 99 Room Air I & O 07/09/21 07:00 Intake Total 1630 ml Output Total 950 ml Balance 680 ml General Appearance: Chronically ill, Mild Distress (tachypnea) Eyes: Bilateral Eye Normal Inspection, Bilateral Eye PERRL, Bilateral Eye EOMI HEENT: PERRL/EOMI Neck: Full Range of Motion Respiratory: Chest Non Tender, Decreased Breath Sounds (INBASES) Cardiovascular: Regular Rate, Rhythm, Other (HEMOSIDERAN PIGMENT CHANGES BILATERAL LOWER EXTREMITIES) Gastrointestinal: Normal Bowel Sounds, Non Tender, Soft Rectal: Deferred Genital/Rectal: Other (chase in place) Extremity: Normal Inspection, Non Tender, No Pedal Edema Neurologic/Psychiatric: Alert, No Motor/Sensory Deficits, Other (FLAT AFFECT) Skin: Warm/Dry Lymphatic: No Adenopathy Results Lab Laboratory Tests 07/08/21 10:57: Glucometer 94 07/08/21 15:27: Glucometer 92 07/08/21 20:15: Glucometer 90 07/09/21 04:37: White Blood Count 6.4, Red Blood Count 2.92L, Hemoglobin 10.3L, Hematocrit 32L, Mean Corpuscular Volume 110H, Mean Corpuscular Hemoglobin 35H, Mean Corpuscular Hemoglobin Concent 32, Red Cell Distribution Width 16.0H, Platelet Count 105L, Mean Platelet Volume 10.6, Immature Granulocyte % (Auto) 2, Neutrophils (%) (Auto) 63, Lymphocytes (%) (Auto) 16, Monocytes (%) (Auto) 12, Eosinophils (%) (Auto) 8, Basophils (%) (Auto) 1, Neutrophils # (Auto) 4.0, Lymphocytes # (Auto) 1.0, Monocytes # (Auto) 0.8, Eosinophils # (Auto) 0.5H, Basophils # (Auto) 0.0, Immature Granulocyte # (Auto) 0.1, Percent Immature Platelet Fraction 3.7, Sodium Level 139, Potassium Level 3.6, Chloride Level 109H, Carbon Dioxide Level 20L, Anion Gap 10, Blood Urea Nitrogen 7, Creatinine 0.55L, Estimat Glomerular Filtration Rate 142, BUN/Creatinine Ratio 13, Glucose Level 98, Calcium Level 8.2L, Corrected Calcium 9.5, Phosphorus Level 2.9, Magnesium Level 1.8, Total Bilirubin 0.7, Aspartate Amino Transf (AST/SGOT) 44H, Alanine Aminotransferase (ALT/SGPT) 12, Alkaline Phosphatase 75, Total Protein 4.6L, Albumin 2.4L Microbiology 07/03/21 Gram Stain - Final, Complete 07/03/21 Sputum Culture - Final, Complete Usual upper respiratory salma 07/03/21 Blood Culture - Final, Complete No growth 07/03/21 Urine Culture - Final, Complete 3 or more isolates Assessment/Plan Assessment/Plan Admission Dx ACUTE RESPIRATORY FAILURE PNEUMONIA WITH SEPTIC SHOCK ACUTE RENAL FAILURE ATRIAL FIBRILLATION RECENT SURGICAL INTERVENTION OF HIP REMOTE HX OF 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 LOVENOX INDUCED THROMBOCYTOPENIA - IMPROVED PLT LEVEL OFF OF LOVENOX. - MONITOR LABS IN MORNING ACUTE RENAL FAILURE - IMPROVED - CONTINUE WITH LOW RATE OF FLUIDS ATRIAL FIBRILLATION - PT OFF OF ANTICOAGULATION AT THIS TIME SECONDARY TO THROMBOCYTOPENIA FROM LOVENOX. 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
[2021-07-09] MEDS ORDERED: MEROPENEM 500 MG in NS (IVPB) 100 ML IV ONE (09:00)
[2021-07-09 12:00] VITALS: BP 101/58
[2021-07-09] MEDS: MEROPENEM 500 MG in NS (IVPB) 100 ML IV SCH ×2 (14:13→20:42)
[2021-07-09 15:47] VITALS: BP 103/66
[2021-07-09] MEDS: TAMSULOSIN 0.4 MG (FLOMAX) CAP PO SCH (17:07)
[2021-07-09 19:37] VITALS: BP 111/61
[2021-07-09] MEDS: SERTRALINE 50 MG (ZOLOFT) TABLET PO SCH (20:43)
[2021-07-10 00:28] VITALS: BP 113/73
[2021-07-10] MEDS: RT-ALBUTEROL/IPRATROPIUM 3 ML (DUONEB) VIAL INH SCH ×6 (02:48→21:41)
[2021-07-10 04:57] VITALS: BP 101/59
[2021-07-10 05:11] LABS: POTASSIUM 3.7 MMOL/L (3.6-5.0)
[2021-07-10 05:12] LABS: CALCIUM 8.1 MG/DL (8.5-10.1)
[2021-07-10] MEDS: MEROPENEM 500 MG in NS (IVPB) 100 ML IV SCH ×3 (05:12→21:20)
[2021-07-10 05:16] LABS: CREATININE SERUM 0.53 MG/DL (0.60-1.30); PHOSPHORUS 2.9 MG/DL (2.3-4.7)
[2021-07-10] MEDS: POTASSIUM CL 10MEQ/50ML IVPB 50 ML IV SCH (05:16)
[2021-07-10] MEDS: KCL 20 MEQ TAB (K-DUR) PO SCH (05:17)
[2021-07-10 05:18] LABS: MAGNESIUM 1.8 MG/DL (1.6-2.4)
[2021-07-10] MEDS: inSUlin ASPART (NovoLOG) 1 UNIT/0.01 ML (CHARGE PER UNIT) SC SCH ×4 (05:18→21:20)
[2021-07-10] MEDS: DIVALPROEX 250 MG DELAYED RELEASE (DEPAKOTE) TAB PO SCH ×2 (05:25→17:12)
[2021-07-10] MEDS: SINEMET CR 50/200 (CARBIDOPA/LEVODOPA SA) TAB PO SCH ×2 (05:25→17:12)
[2021-07-10] MEDS: BETHANECHOL 25 MG (URECHOLINE) TAB PO SCH ×2 (05:26→17:11)
[2021-07-10] MEDS: MAGNESIUM 1 GM/100 ML IVPB 100 ML IV SCH (05:41)
--- NOTE | 2021-07-10 07:27 | Diagnostic Imaging Report ---
INDICATION: Pneumonia. Comparison made with prior examination of 07/08/2021. FINDINGS: There is cardiomegaly. There is some left basilar atelectasis and/or pneumonitis and a left pleural effusion. No pneumothorax. Mediastinum is unremarkable. Pacemaker overlies left hemithorax. IMPRESSION: Cardiomegaly with some left basilar atelectasis an/or pneumonitis and left pleural effusion. Dictated by: Dictated on workstation # [id number]
[2021-07-10 08:00] VITALS: BP 108/67
--- NOTE | 2021-07-10 08:35 | Cardiology Progress Note ---
Subjective Date Seen by Provider: Jul 10, 2021 Time Seen by Provider: 08:34 Subjective/Events-last exam Patient is sitting up in chair, having some dyspnea, denies any chest pain. Review of Systems General: No Chills, No Night Sweats; Fatigue; No Malaise, No Appetite, No Other HEENT: No Head Aches, No Visual Changes, No Eye Pain, No Ear Pain, No Dysphasia, No Sinus Congestion, No Post Nasal Drip, No Sore Throat, No Other Pulmonary: Dyspnea; No Cough, No Pleuritic Chest Pain, No Other Cardiovascular: Edema; No: Chest Pain, Palpitations, Orthopnea, Paroxysmal Noc. Dyspnea, Lt Headedness, Other Focused Exam Time of Focused Exam: 15:58 Objective-Cardiology Exam Last Set of Vital Signs Vital Signs 07/07/21 07/07/21 07/10/21 07/10/21 08:19 14:32 08:00 10:12 Temp 36.2 Pulse 84 Resp 18 B/P (MAP) 108/67 (81) Pulse Ox 98 O2 Delivery Room Air O2 Flow Rate 2.00 FiO2 28 I&O Intake and Output 07/10/21 00:00 Intake Total 1550 ml Output Total 725 ml Balance 825 ml Intake Oral 500 ml IV Total 1050 ml Output Urine Total 725 ml # Bowel Movements 1 General: Alert, Oriented X3, Cooperative, No Acute Distress HEENT: Atraumatic Neck: Supple, No JVD Lungs: Other (bilat rhonchi) Heart: Regular Rate, Normal S1, Normal S2 Abdomen: Soft, No Tenderness Extremities: No Clubbing, No Edema Skin: No Rashes, No Significant Lesion Neuro: Normal Speech Psych/Mental Status: Mental Status NL, Mood NL Results Lab Laboratory Tests 07/10/21 04:50 A/P-Cardiology Admission Diagnosis Acute respiratory failure Hypotensive shock Lactic acidosis Cardiac pacemaker Assessment/Plan Status post acute respiratory failure, improved, still having some residual dyspnea CT chest showed bibasilar parenchymal consolidation, left greater. The left four vent chest tube does appear to be intraparenchymal in the left upper lobe with some surrounding left upper lobe hemorrhage. There was a small to moderate residual left-sided pneumothorax present. Dr. Forde was consulted, Thora vent was removed on July 05, 2021 with no complication Continue on antibiotic and monitor. Sepsis, pneumonia, receiving antibiotic and managed by primary care team. Status post hypotension, blood pressure is better, continue to monitor. Chronic persistent atrial fibrillation, has history of sinus node dysfunction and permanent pacemaker, currently in AV paced rhythm. Continue to monitor History of intracranial bleed after trauma, history of embolic stroke and hemorrhagic stroke, unable to tolerate long-term oral anticoagulation, had left atrial appendage clip done at in the past. Continue to monitor Permanent pacemaker, generator replaced in April 2020, good sensing and capture activity. Anemia, received blood transfusion on 06/06/2021, continue to monitor History of hypertension, currently normotensive, was initially hypotensive on admission to the hospital. History of seizure disorder. No witnessed seizure activity. Continue to monitor Mild bilateral carotid stenosis, continue to monitor Hyperlipidemia, monitor lipids Patient was seen and evaluated with Gissell, examination performed, management plan was discussed, agree with the current scribed note, I made few changes to the note using Italic font Patient was seen at bedside, sitting comfortably, still having some shortness of breath and edema Will give additional dose of Lasix and evaluate tolerance and response Monitor blood pressure and heart rate GISSELL MESSINA Jul 10, 2021 08:35 KEDAR BOYKIN MD Jul 10, 2021 12:11
[2021-07-10] MEDS: PANTOPRAZOLE 40 MG (PROTONIX) VIAL IV SCH (09:24)
[2021-07-10] MEDS: ARTIFICAL TEARS 0.4 ML UNIT DOSE (REFRESH PLUS) OU SCH (09:25)
--- NOTE | 2021-07-10 09:31 | Physical Therapy Daily Note ---
PT Daily Note-Current Subjective Patient agrees to PT. Mental Status Patient Orientation: Person, Time, Situation Attachments: Mclaughlin Catheter, IV Transfers SCALE: Activities may be completed with or without assistive devices. 7-Cxhtyyjukb-dwtfpgc completes the activity by him/herself with no assistance from a helper. 5-Set-up or Clean-up Assistance-helper sets up or cleans up; patient completes activity. [place] assists only prior to or following the activity. 4-Supervision or Touching Assistance-helper provides verbal cues and/or touching/steadying and/or contact guard assistance as patient completes activity. Assistance may be provided throughout the activity or intermittently. 3-Partial/Moderate Assistance-helper does LESS THAN HALF the effort. [place] lifts, holds or supports trunk or limbs, but provides less than half the effort. 2-Substantial/Maximal Assistance-helper does MORE THAN HALF the effort. [place] lifts or holds trunk or limbs and provides more than half the effort. 3-Embejwype-rbttod does ALL the effort. Patient does none of the effort to complete the activity. Or, the assistance of 2 or more helpers is required for the patient to complete the activity. If activity was not attempted, code reason: 7-Patient Refused. 9-Not Applicable-not attempted and the patient did not perform the activity before the current illness, exacerbation or injury. 10-Not Attempted due to Environmental Limitations-(lack of equipment, weather restraints, etc.). 88-Not Attempted due to Medical Conditions or Safety Concerns. Lying to Sitting/Side of Bed(Q: 1 Sit to Stand (QC): 1 (sit to stand lift) Chair/Jtn-wd-Ywryy Xfer(QC): 1 (sit to stand lift) Exercises Seated Therapy Exercises: Ankle pumps, Long arc quads, Hip flexion Seated Reps: 12 Assessment Dependent of 2 for all mobility. Patient incontinent BM during transfer. PT to continue to address functional strength and mobility. PT Penitentiary Goals Penitentiary Goals PT Penitentiary Goals Time Frame: Jul 21, 2021 Roll Left & Right (QC): 5 Sit to Lying (QC): 5 Lying-Sitting on Side/Bed(QC): 5 Sit to Stand (QC): 5 Chair/Tyz-du-Psvit Xfer(QC): 5 Toilet Transfer (QC): 5 Does the Patient Walk: Yes Walk 10 feet (QC): 5 Walk 50ft with 2 Turns (QC): 5 1 Step (curb) (QC): 5 4 Steps (QC): 5 PT Plan Treatment/Plan Treatment Plan: Continue Plan of Care Treatment Plan: Bed Mobility, Concurrent Therapy, Functional Activity Vandana, Functional Strength, Gait, Therapeutic Exercise, Transfers Treatment Duration: Jul 21, 2021 Frequency: 6 times per week Estimated Hrs Per Day: .5 hour per day Patient and/or Family Agrees t: Yes Time/GCodes Time In: 800 Time Out: 823 Total Billed Treatment Time: 23 Total Billed Treatment 1 visit FA x 2 23 min RAMBO PAYTON PT Jul 10, 2021 09:31
--- NOTE | 2021-07-10 10:48 | Occupational Ther Daily Note ---
OT Current Status-Daily Note Subjective Pt up in recliner, states he wishes someone could wiggle their nose like the [place] in order to make him better. ADL-Treatment Therapy Code Descriptions/Definitions Functional [place] Measure: 0=Not Assessed/NA 4=Minimal Assistance 1=Total Assistance 5=Supervision or Setup 2=Maximal Assistance 6=Modified [place] 3=Moderate Assistance 7=Complete IndependenceSCALE: Activities may be completed with or without assistive devices. 1-Dblasilapj-lxupici completes the activity by him/herself with no assistance from a helper. 5-Set-up or Clean-up Assistance-helper sets up or cleans up; patient completes activity. [place] assists only prior to or following the activity. 4-Supervision or Touching Assistance-helper provides verbal cues and/or touching/steadying and/or contact guard assistance as patient completes a ctivity. Assistance may be provided throughout the activity or intermittently. 3-Partial/Moderate Assistance-helper does LESS THAN HALF the effort. [place] lifts, holds or supports trunk or limbs, but provides less than half the effort. 2-Substantial/Maximal Assistance-helper does MORE THAN HALF the effort. [place] lifts or holds trunk or limbs and provides more than half the effort. 0-Sgjyygnox-nkggpp does ALL the effort. Patient does none of the effort to complete the activity. Or, the assistance of 2 or more helpers is required for the patient to complete the activity. If activity was not attempted, code reason: 7-Patient Refused. 9-Not Applicable-not attempted and the patient did not perform the activity before the current illness, exacerbation or injury. 10-Not Attempted due to Environmental Limitations-(lack of equipment, weather restraints, etc.). 88-Not Attempted due to Medical Conditions or Safety Concerns. Lower Body Dressing (QC): 1 (Pt currently requires sit to stand lift for transfers.) Toileting Hygiene (QC): 1 (Pt currently requires sit to stand lift for transfers.) Other Treatment Pt seated in recliner. In order to increase BUE strength and activity tolerance, pt completed x10 reps each of the following BUE exercises: shoulder flexion, elbow flexion/extension, wrist flexion/extension and finger flexion/extension. Noted decreased movements all planes in LUE. LUE had slight edema, gentle retrograde massage performed at hand and forearm level, hand positioned in elevated position on pillow. Post tx, pt in recliner, call light in reach and all needs met. Education OT Patient Education: Correct positioning, Modified ADL techniques, Progress estefany garcia Goal/Update tx plan, Purpose of tx/functional activities Teaching Recipient: Patient Teaching Methods: Discussion OT Custodial Goals Bridge Teacher Goals Time Frame: Jul 21, 2021 Eating (QC): 5 Oral Hygiene (QC): 5 Toileting Hygiene (QC): 3 Shower/Bathe Self (QC): 3 Upper Body Dressing (QC): 4 Lower Body Dressing (QC): 3 On/Off Footwear (QC): 3 Additional Goals: 1-Demonstrate ADL Tasks, 2-Verbalize Understanding, 3- ImproveStrength/Vandana 1=Demonstrate adherence to instructed precautions during ADL tasks. 2=Patient will verbalize/demonstrate understanding of assistive devices/modifications for ADL. 3=Patient will improve strength/tolerance for activity to enable patient to perform ADL's. OT Education/Plan Problem List/Assessment Assessment: Decreased Activ Tolerance, Decreased UE Strength, Dependent Transfers, Impaired Funct Balance, Impaired I ADL's, Impaired Self-Care Skills, Restricted Funct UE ROM Discharge Recommendations Plan/Recommendations: Continue POC Treatment Plan/Plan of Care Patient would benefit from OT for education, treatment and training to promote independence in ADL's, mobility, safety and/or upper extremity function for ADL's. Plan of Care: ADL Retraining, Functional Mobility, UE Funct Exercise/Act Treatment Duration: Jul 21, 2021 Frequency: 3 times per week (3-5 times per week.) Rehab Potential: Good Time/GCodes Start Time: 10:35 Stop Time: 10:44 Total Time Billed (hr/min): 9 Billed Treatment Time 1, EX SHKAA BEAN OT Jul 10, 2021 10:48
[2021-07-10] MEDS ORDERED: FUROSEMIDE 40 MG/4 ML INJ (LASIX) IVP ONE (11:15)
[2021-07-10 12:00] VITALS: BP 110/71
--- NOTE | 2021-07-10 12:34 | Progress Note ---
Subjective Date Seen by a Provider: Jul 10, 2021 Time Seen by a Provider: 12:29 Subjective/Events-last exam Fwup acute respiratory failure, Pneumonia with sepsis, generalized weakness, parkinson's. Short of air with conversation. Very weak. Appetite poor. Focused Exam Time of Focused Exam: 15:58 Objective Exam Vital Signs Date Time Temp Pulse Resp B/P (MAP) Pulse Ox O2 Delivery O2 Flow Rate FiO2 07/10/21 12:00 36.3 90 21 110/71 (84) 94 Room Air 07/10/21 10:12 98 Room Air 07/10/21 09:00 Room Air 07/10/21 08:00 36.2 84 18 108/67 (81) 93 Room Air 07/10/21 06:39 90 Room Air 07/10/21 04:57 36.4 85 18 101/59 (73) 92 Room Air 07/10/21 02:48 96 Room Air 07/10/21 00:28 36.2 91 21 113/73 (86) 95 Room Air 07/09/21 22:07 96 Room Air 07/09/21 20:42 Room Air 07/09/21 19:37 36.6 90 20 111/61 (78) 95 Room Air 07/09/21 18:38 95 Room Air 07/09/21 15:47 36.6 88 20 103/66 (78) 93 Room Air 07/09/21 15:35 96 Room Air I & O 07/10/21 07:00 Intake Total 800 ml Output Total 600 ml Balance 200 ml Capillary Refill : Greater Than 3 Seconds General Appearance: Mild Distress Neck: Supple Respiratory: Lungs Clear, Decreased Breath Sounds Cardiovascular: Regular Rate, Rhythm, Systolic Murmur Gastrointestinal: normal bowel sounds, non tender, soft Extremity: Non Tender, No Calf Tenderness, No Pedal Edema Neurologic/Psychiatric: Alert Results Lab Laboratory Tests 07/09/21 15:23: Glucometer 109 07/09/21 20:07: Glucometer 115H 07/10/21 04:50: Sodium Level 140, Potassium Level 3.7, Chloride Level 109H, Carbon Dioxide Level 23, Anion Gap 8, Blood Urea Nitrogen 7, Creatinine 0.53L, Estimat Glomerular Filtration Rate 148, BUN/Creatinine Ratio 13, Glucose Level 94, Calcium Level 8.1L, Phosphorus Level 2.9, Magnesium Level 1.8 07/10/21 11:30: Glucometer 106 Microbiology 07/03/21 Gram Stain - Final, Complete 07/03/21 Sputum Culture - Final, Complete Usual upper respiratory salma 07/03/21 Blood Culture - Final, Complete No growth 07/03/21 Urine Culture - Final, Complete 3 or more isolates Assessment/Plan Assessment/Plan Assess & Plan/Chief Complaint 1. Acute Respiratory Failure--improved, off oxygen 2. Hypovolemic/Septic Shock--improved 3. Acute Renal Failure--resolved 4. History of atrial fibrillation--cardiology consulted 5. History of Previous Hemorrhagic Stroke with Long-Term Deficits 6. Parkinson's--treated with sinemet 7. Recent Right hip fracture with surgery 8. Pneumonia--on meropenem 9. Left Pneumothorax--resolved 10. Thrombocytopenia--improved so will resume lovenox and repeat CBC in AM 11. Weakness--PT/OT started, daughter would prefer inpatient rehab but discussed he would likely not qualify due to not being able to do much with therapy at this time so she would like to look into [facility] for DC plans 12. Dysphagia--was supposed to get modified barium swallow but order cancelled so will reorder Clinical Quality Measures Admission Status Admission Dx 1. Acute Respiratory Failure--sedated on ventilator with pulmonary consult, will cover with wide spectrum antibiotics for possible aspiration, cover with heparin for possible PE, V/Q scan ordered for morning 2. Hypovolemic/Septic Shock--aggressive IVF rehydration, pressors prn for BP support, broad spectrum IV antibiotics 3. Acute on Chronic Renal Failure--IVFs and monitor BUN/Cr 4. History of Seizure Disorder--sedated with propofol drip 5. History of Atrial Fibrillation--monitor on telemetry 6. History of Previous CVA and Hemorrhagic Stroke--family understands risk of heparin and is agreeable to cover due to possible PE 7. Recent Right Hip Fracture--S/P surgery 8. Parkinson's Discussed with daughter and son. They understand grave condition NAPOLEON AKHTAR DO Jul 10, 2021 12:34
[2021-07-10 16:06] VITALS: BP 112/73
[2021-07-10] MEDS: TAMSULOSIN 0.4 MG (FLOMAX) CAP PO SCH (17:12)
[2021-07-10] MEDS: LACTATED RINGERS 1,000 ML IV SCH (17:13)
[2021-07-10] MEDS: ENOXAPARIN 40 MG/0.4 ML (LOVENOX) SYR SC SCH (17:13)
[2021-07-10 19:57] VITALS: BP 105/63
[2021-07-10] MEDS: SERTRALINE 50 MG (ZOLOFT) TABLET PO SCH (21:20)
[2021-07-11 00:29] VITALS: BP 117/72
[2021-07-11] MEDS: RT-ALBUTEROL/IPRATROPIUM 3 ML (DUONEB) VIAL INH SCH ×6 (02:17→21:23)
[2021-07-11 05:00] VITALS: BP 104/66
[2021-07-11] MEDS: inSUlin ASPART (NovoLOG) 1 UNIT/0.01 ML (CHARGE PER UNIT) SC SCH ×4 (05:40→21:23)
[2021-07-11] MEDS: DIVALPROEX 250 MG DELAYED RELEASE (DEPAKOTE) TAB PO SCH ×2 (05:40→17:09)
[2021-07-11] MEDS: MEROPENEM 500 MG in NS (IVPB) 100 ML IV SCH ×3 (05:40→21:27)
[2021-07-11] MEDS: BETHANECHOL 25 MG (URECHOLINE) TAB PO SCH ×2 (05:40→17:09)
[2021-07-11] MEDS: SINEMET CR 50/200 (CARBIDOPA/LEVODOPA SA) TAB PO SCH ×2 (05:40→17:09)
[2021-07-11 05:44] LABS: HEMATOCRIT 30 % (40-54); HEMOGLOBIN 9.6 g/dL (13.3-17.7); MEAN CORPUSCULAR HEMOGLOBIN 35 pg (25-34); MEAN CORPUSCULAR HGB CONC 32 g/dL (32-36); MEAN CORPUSCULAR VOLUME 108 fL (80-99); MEAN PLATELET VOLUME 9.8 fL (9.0-12.2); PLATELET COUNT 120 10^3/uL (130-400); WHITE BLOOD COUNT 4.2 10^3/uL (4.3-11.0)
[2021-07-11 05:54] LABS: POTASSIUM 3.4 MMOL/L (3.6-5.0)
[2021-07-11 05:59] LABS: CREATININE SERUM 0.5 MG/DL (0.60-1.30); PHOSPHORUS 2.8 MG/DL (2.3-4.7)
[2021-07-11 06:01] LABS: MAGNESIUM 1.6 MG/DL (1.6-2.4)
[2021-07-11] MEDS: KCL 20 MEQ TAB (K-DUR) PO SCH (06:27)
[2021-07-11] MEDS: POTASSIUM CL 10MEQ/50ML IVPB 50 ML IV SCH ×3 (06:27→08:10)
[2021-07-11] MEDS: MAGNESIUM 1 GM/100 ML IVPB 100 ML IV SCH ×3 (06:27→10:40)
[2021-07-11] MEDS: LACTATED RINGERS 1,000 ML IV SCH ×2 (07:00→17:08)
[2021-07-11 07:21] VITALS: BP 109/74
[2021-07-11] MEDS: ARTIFICAL TEARS 0.4 ML UNIT DOSE (REFRESH PLUS) OU SCH (08:10)
[2021-07-11] MEDS: PANTOPRAZOLE 40 MG (PROTONIX) TAB PO SCH (08:10)
--- NOTE | 2021-07-11 08:41 | Cardiology Progress Note ---
Subjective Date Seen by Provider: Jul 11, 2021 Time Seen by Provider: 08:40 Subjective/Events-last exam Patient is sitting up in bed, denies any chest pain, reports dyspnea is improving. Review of Systems General: No Chills, No Night Sweats, No Fatigue, No Malaise, No Appetite, No Other HEENT: No Head Aches, No Visual Changes, No Eye Pain, No Ear Pain, No Dysphasia, No Sinus Congestion, No Post Nasal Drip, No Sore Throat, No Other Pulmonary: Dyspnea; No Cough, No Pleuritic Chest Pain, No Other Cardiovascular: Edema; No: Chest Pain, Palpitations, Orthopnea, Paroxysmal Noc. Dyspnea, Lt Headedness, Other Focused Exam Time of Focused Exam: 15:58 Objective-Cardiology Exam Last Set of Vital Signs Vital Signs 07/07/21 07/07/21 07/11/21 08:19 14:32 11:15 Temp 36.2 Pulse 89 Resp 18 B/P (MAP) 146/58 (87) Pulse Ox 91 O2 Delivery Room Air O2 Flow Rate 2.00 FiO2 28 I&O Intake and Output 07/11/21 00:00 Intake Total 1030 ml Output Total 1700 ml Balance -670 ml Intake Oral 1030 ml Output Urine Total 1700 ml # Bowel Movements 3 General: Alert, Oriented X3, Cooperative, No Acute Distress HEENT: Atraumatic Neck: Supple, No JVD Lungs: Other (bilat rhonchi) Heart: Regular Rate, Normal S1, Normal S2 Abdomen: Soft, No Tenderness Extremities: No Clubbing, No Edema Skin: No Rashes, No Significant Lesion Neuro: Normal Speech Psych/Mental Status: Mental Status NL, Mood NL Results Lab Laboratory Tests 07/11/21 05:30 A/P-Cardiology Admission Diagnosis Acute respiratory failure Hypotensive shock Lactic acidosis Cardiac pacemaker Assessment/Plan Status post acute respiratory failure, improved, still having some residual dyspnea CT chest showed bibasilar parenchymal consolidation, left greater. The left four vent chest tube does appear to be intraparenchymal in the left upper lobe with some surrounding left upper lobe hemorrhage. There was a small to moderate residual left-sided pneumothorax present. Dr. Forde was consulted, Thora vent was removed on July 05, 2021 with no complication Continue on antibiotic and monitor. Peripheral edema, improving after Lasix, continuing diuretic, still having left upper extremity swelling, continue with physical therapy and consider Joshua wrap Sepsis, pneumonia, receiving antibiotic and managed by primary care team. Status post hypotension, blood pressure is better, continue to monitor. Chronic persistent atrial fibrillation, has history of sinus node dysfunction and permanent pacemaker, currently in AV paced rhythm. Continue to monitor History of intracranial bleed after trauma, history of embolic stroke and hemorrhagic stroke, unable to tolerate long-term oral anticoagulation, had left atrial appendage clip done at in the past. Continue to monitor Permanent pacemaker, generator replaced in April 2020, good sensing and capture activity. Anemia, received blood transfusion on 06/06/2021, continue to monitor History of hypertension, currently normotensive, was initially hypotensive on admission to the hospital. History of seizure disorder. No witnessed seizure activity. Continue to monitor Mild bilateral carotid stenosis, continue to monitor Hyperlipidemia, monitor lipids Supervisory-Addendum Brief Supervisory Addendum Participated in pt care: history, MDM, physical Personally performed: exam, history, MDM Care discussed with: ALBINO Results interpretation: Verified all documentation Notes: Patient was seen and evaluated with Gissell, examination performed, management plan was discussed, agree with the current scribed note, I made few changes to the note using Italic font GISSELL MESSINA Jul 11, 2021 08:41 KEDAR BOYKIN MD Jul 11, 2021 14:20
--- NOTE | 2021-07-11 08:44 | Progress Note ---
Subjective Date Seen by a Provider: Jul 11, 2021 Time Seen by a Provider: 08:41 Subjective/Events-last exam Fwup acute respiratory failure, Pneumonia with sepsis, generalized weakness, parkinson's. Sitting up in bed. Less conversational dyspnea. Having to use sit to stand to transfer to chair. Focused Exam Time of Focused Exam: 15:58 Objective Exam Vital Signs Date Time Temp Pulse Resp B/P (MAP) Pulse Ox O2 Delivery O2 Flow Rate FiO2 07/11/21 07:21 89 20 109/74 (86) 92 Room Air 07/11/21 06:58 92 Room Air 07/11/21 05:00 36.6 97 18 104/66 (79) 92 Room Air 07/11/21 02:17 96 Room Air 07/11/21 00:29 36.2 93 20 117/72 (87) 94 Room Air 07/10/21 21:42 97 Room Air 07/10/21 20:59 Room Air 07/10/21 19:57 36.7 100 19 105/63 (77) 93 Room Air 07/10/21 18:03 95 Room Air 07/10/21 16:06 36.7 89 20 112/73 (86) 93 Room Air 07/10/21 14:25 97 Room Air 07/10/21 12:00 36.3 90 21 110/71 (84) 94 Room Air 07/10/21 10:12 98 Room Air 07/10/21 09:00 Room Air I & O 07/11/21 07:00 Intake Total 880 ml Output Total 1875 ml Balance -995 ml Capillary Refill : Greater Than 3 Seconds General Appearance: No Apparent Distress Neck: Supple Respiratory: Lungs Clear, Decreased Breath Sounds Cardiovascular: Regular Rate, Rhythm, Systolic Murmur Gastrointestinal: normal bowel sounds, non tender, soft Extremity: Non Tender, No Calf Tenderness, Pedal Edema (left arm but no erythema or warmth) Neurologic/Psychiatric: Alert Results Lab Laboratory Tests 07/10/21 11:30: Glucometer 106 07/10/21 15:43: Glucometer 109 07/10/21 20:29: Glucometer 98 07/11/21 05:30: Glucometer 87, White Blood Count 4.2L, Red Blood Count 2.74L, Hemoglobin 9.6L, Hematocrit 30L, Mean Corpuscular Volume 108H, Mean Corpuscular Hemoglobin 35H, Mean Corpuscular Hemoglobin Concent 32, Red Cell Distribution Width 16.5H, Platelet Count 120L, Mean Platelet Volume 9.8, Sodium Level 137, Potassium Level 3.4L, Chloride Level 106, Carbon Dioxide Level 25, Anion Gap 6, Blood Urea Nitrogen 5L, Creatinine 0.50L, Estimat Glomerular Filtration Rate 159, BUN/Creatinine Ratio 10, Glucose Level 90, Calcium Level 8.0L, Phosphorus Level 2.8, Magnesium Level 1.6 Microbiology 07/03/21 Gram Stain - Final, Complete 07/03/21 Sputum Culture - Final, Complete Usual upper respiratory salma 07/03/21 Blood Culture - Final, Complete No growth 07/03/21 Urine Culture - Final, Complete 3 or more isolates Assessment/Plan Assessment/Plan Assess & Plan/Chief Complaint 1. Acute Respiratory Failure--improved, off oxygen 2. Hypovolemic/Septic Shock--resolved 3. Acute Renal Failure--resolved 4. History of atrial fibrillation--cardiology consulted 5. History of Previous Hemorrhagic Stroke with Snf Deficits 6. Parkinson's--treated with sinemet 7. Recent Right hip fracture with surgery 8. Pneumonia--on meropenem 9. Left Pneumothorax--resolved 10. Thrombocytopenia--improved even with lovenox restarted 11. Weakness--PT/OT started, daughter would prefer inpatient rehab but discussed he would likely not qualify due to not being able to do much with therapy at this time so she would like to look into [facility] for DC plans 12. Dysphagia--modified barium swallow ordered 13. Hypokalemia-on replacement 14. Left arm swelling--does not look like DVT looks like third spacing--start oral lasix and potassium Clinical Quality Measures Admission Status Admission Dx 1. Acute Respiratory Failure--sedated on ventilator with pulmonary consult, will cover with wide spectrum antibiotics for possible aspiration, cover with heparin for possible PE, V/Q scan ordered for morning 2. Hypovolemic/Septic Shock--aggressive IVF rehydration, pressors prn for BP support, broad spectrum IV antibiotics 3. Acute on Chronic Renal Failure--IVFs and monitor BUN/Cr 4. History of Seizure Disorder--sedated with propofol drip 5. History of Atrial Fibrillation--monitor on telemetry 6. History of Previous CVA and Hemorrhagic Stroke--family understands risk of heparin and is agreeable to cover due to possible PE 7. Recent Right Hip Fracture--S/P surgery 8. Parkinson's Discussed with daughter and son. They understand grave condition NAPOLEON AKHTAR DO Jul 11, 2021 08:44
[2021-07-11] MEDS ORDERED: KCL 20 MEQ TAB (K-DUR) PO ONE (08:45)
[2021-07-11] MEDS ORDERED: FUROSEMIDE 20 MG (LASIX) TAB PO SCH (09:00)
--- NOTE | 2021-07-11 09:21 | Occupational Ther Daily Note ---
OT Current Status-Daily Note Subjective Pt alert, lying in bed. Pt agrees to therapy. No c/o pain. Mental Status/Objective Patient Orientation: Person, Place, Time, Situation Attachments: Mclaughlin Catheter, IV ADL-Treatment Therapy Code Descriptions/Definitions Functional [place] Measure: 0=Not Assessed/NA 4=Minimal Assistance 1=Total Assistance 5=Supervision or Setup 2=Maximal Assistance 6=Modified [place] 3=Moderate Assistance 7=Complete IndependenceSCALE: Activities may be completed with or without assistive devices. 5-Wcitzrwoux-ftpgujb completes the activity by him/herself with no assistance from a helper. 5-Set-up or Clean-up Assistance-helper sets up or cleans up; patient completes activity. [place] assists only prior to or following the activity. 4-Supervision or Touching Assistance-helper provides verbal cues and/or touching/steadying and/or contact guard assistance as patient completes activity. Assistance may be provided throughout the activity or intermittently. 3-Partial/Moderate Assistance-helper does LESS THAN HALF the effort. [place] lifts, holds or supports trunk or limbs, but provides less than half the effort. 2-Substantial/Maximal Assistance-helper does MORE THAN HALF the effort. [place] lifts or holds trunk or limbs and provides more than half the effort. 2-Djyxochuo-blusfk does ALL the effort. Patient does none of the effort to complete the activity. Or, the assistance of 2 or more helpers is required for the patient to complete the activity. If activity was not attempted, code reason: 7-Patient Refused. 9-Not Applicable-not attempted and the patient did not perform the activity before the current illness, exacerbation or injury. 10-Not Attempted due to Environmental Limitations-(lack of equipment, weather restraints, etc.). 88-Not Attempted due to Medical Conditions or Safety Concerns. Other Treatment Working with PT to transfer pt from bed to recliner using sit to stand lift. Pt required assist x2-3 for supine to EOB then assist x2-3 to sit EOB. Pt retropulsive with sitting and requires verbal/physical cues to maintain an upright position. Sit to stand lift to transfer from EOB to recliner, assist x2 for safety. L forearm edema noted, placed on pillow to elevate. After session, pt sitting in recliner with call light/phone in reach. All needs met in room. OT Rn Picu Goals Rn Picu Goals Time Frame: Jul 21, 2021 Eating (QC): 5 Oral Hygiene (QC): 5 Toileting Hygiene (QC): 3 Shower/Bathe Self (QC): 3 Upper Body Dressing (QC): 4 Lower Body Dressing (QC): 3 On/Off Footwear (QC): 3 Additional Goals: 1-Demonstrate ADL Tasks, 2-Verbalize Understanding, 3- ImproveStrength/Vandana 1=Demonstrate adherence to instructed precautions during ADL tasks. 2=Patient will verbalize/demonstrate understanding of assistive devices/modifications for ADL. 3=Patient will improve strength/tolerance for activity to enable patient to perform ADL's. OT Education/Plan Problem List/Assessment Assessment: Decreased Activ Tolerance, Decreased UE Strength Discharge Recommendations Plan/Recommendations: Continue POC Treatment Plan/Plan of Care Patient would benefit from OT for education, treatment and training to promote independence in ADL's, mobility, safety and/or upper extremity function for ADL's. Plan of Care: ADL Retraining, Functional Mobility, UE Funct Exercise/Act Treatment Duration: Jul 21, 2021 Frequency: 3 times per week (3-5 times per week.) Rehab Potential: Good Time/GCodes Start Time: 09:00 Stop Time: 09:10 Total Time Billed (hr/min): 10 Billed Treatment Time 1 visit-FA 1 (10 min) IRWIN LANCASTER Jul 11, 2021 09:21
--- NOTE | 2021-07-11 10:04 | Physical Therapy Daily Note ---
PT Daily Note-Current Subjective Patient more alert today and agrees to therapy. PT/OT present. Mental Status Patient Orientation: Normal For Age Attachments: Mclaughlin Catheter, IV Transfers SCALE: Activities may be completed with or without assistive devices. 3-Ityyefatuc-vkddqen completes the activity by him/herself with no assistance from a helper. 5-Set-up or Clean-up Assistance-helper sets up or cleans up; patient completes activity. [place] assists only prior to or following the activity. 4-Supervision or Touching Assistance-helper provides verbal cues and/or touching/steadying and/or contact guard assistance as patient completes activity. Assistance may be provided throughout the activity or intermittently. 3-Partial/Moderate Assistance-helper does LESS THAN HALF the effort. [place] lifts, holds or supports trunk or limbs, but provides less than half the effort. 2-Substantial/Maximal Assistance-helper does MORE THAN HALF the effort. [place] lifts or holds trunk or limbs and provides more than half the effort. 7-Qgqwmnvgp-zjubpc does ALL the effort. Patient does none of the effort to complete the activity. Or, the assistance of 2 or more helpers is required for the patient to complete the activity. If activity was not attempted, code reason: 7-Patient Refused. 9-Not Applicable-not attempted and the patient did not perform the activity before the current illness, exacerbation or injury. 10-Not Attempted due to Environmental Limitations-(lack of equipment, weather restraints, etc.). 88-Not Attempted due to Medical Conditions or Safety Concerns. Lying to Sitting/Side of Bed(Q: 1 (x 3) Sit to Stand (QC): 1 (sit to stand lift) Chair/Qhy-ew-Klmru Xfer(QC): 1 (sit to stand lift) Exercises Seated Therapy Exercises: Long arc quads Seated Reps: 12 (AAROM) Assessment Patient up in recliner via sit to stand lift. Patient is not leaning to left on this date vs. yesterday. Increase activity as tolerated by patient. PT Senior Living Goals Melt House Supervisor Goals PT Melt House Supervisor Goals Time Frame: Jul 21, 2021 Roll Left & Right (QC): 5 Sit to Lying (QC): 5 Lying-Sitting on Side/Bed(QC): 5 Sit to Stand (QC): 5 Chair/Rdz-mr-Sdbdh Xfer(QC): 5 Toilet Transfer (QC): 5 Does the Patient Walk: Yes Walk 10 feet (QC): 5 Walk 50ft with 2 Turns (QC): 5 1 Step (curb) (QC): 5 4 Steps (QC): 5 PT Plan Treatment/Plan Treatment Plan: Continue Plan of Care Treatment Plan: Bed Mobility, Concurrent Therapy, Functional Activity Vandana, Functional Strength, Gait, Therapeutic Exercise, Transfers Treatment Duration: Jul 21, 2021 Frequency: 6 times per week Estimated Hrs Per Day: .5 hour per day Patient and/or Family Agrees t: Yes Time/GCodes Time In: 900 Time Out: 913 Total Billed Treatment Time: 13 Total Billed Treatment 1 visit FA 13 min RAMBO PAYTON PT Jul 11, 2021 10:04
[2021-07-11 11:15] VITALS: BP 146/58
[2021-07-11 15:30] VITALS: BP 110/69
[2021-07-11] MEDS: TAMSULOSIN 0.4 MG (FLOMAX) CAP PO SCH (17:09)
[2021-07-11] MEDS: ENOXAPARIN 40 MG/0.4 ML (LOVENOX) SYR SC SCH (17:09)
[2021-07-11 19:48] VITALS: BP 102/65
[2021-07-11] MEDS: SERTRALINE 50 MG (ZOLOFT) TABLET PO SCH (21:27)
[2021-07-12] VITALS (7 sets, daily range): BP systolic 103–131; BP diastolic 58–85
[2021-07-12] MEDS: LACTATED RINGERS 1,000 ML IV SCH ×2 (00:13→15:33)
[2021-07-12] MEDS: RT-ALBUTEROL/IPRATROPIUM 3 ML (DUONEB) VIAL INH SCH ×4 (02:09→18:33)
[2021-07-12 05:45] LABS: HEMATOCRIT 30 % (40-54); HEMOGLOBIN 10.1 g/dL (13.3-17.7); MEAN CORPUSCULAR HEMOGLOBIN 36 pg (25-34); MEAN CORPUSCULAR HGB CONC 33 g/dL (32-36); MEAN CORPUSCULAR VOLUME 108 fL (80-99); MEAN PLATELET VOLUME 9.7 fL (9.0-12.2); PLATELET COUNT 148 10^3/uL (130-400); WHITE BLOOD COUNT 4.1 10^3/uL (4.3-11.0)
[2021-07-12 06:03] LABS: ALBUMIN 2.3 GM/DL (3.2-4.5); POTASSIUM 3.4 MMOL/L (3.6-5.0)
[2021-07-12 06:05] LABS: CALCIUM 8.1 MG/DL (8.5-10.1)
[2021-07-12 06:06] LABS: TOTAL PROTEIN 4.4 GM/DL (6.4-8.2)
[2021-07-12 06:08] LABS: BILIRUBIN,TOTAL 0.6 MG/DL (0.1-1.0)
[2021-07-12 06:09] LABS: PHOSPHORUS 2.5 MG/DL (2.3-4.7)
[2021-07-12] MEDS: POTASSIUM CL 10MEQ/50ML IVPB 50 ML IV SCH ×3 (06:09→08:02)
[2021-07-12] MEDS: inSUlin ASPART (NovoLOG) 1 UNIT/0.01 ML (CHARGE PER UNIT) SC SCH ×4 (06:09→21:11)
[2021-07-12] MEDS: KCL 20 MEQ TAB (K-DUR) PO SCH ×2 (06:09→08:03)
[2021-07-12 06:10] LABS: CREATININE SERUM 0.47 MG/DL (0.60-1.30)
[2021-07-12 06:13] LABS: MAGNESIUM 1.8 MG/DL (1.6-2.4)
[2021-07-12] MEDS: MEROPENEM 500 MG in NS (IVPB) 100 ML IV SCH ×3 (06:15→21:11)
[2021-07-12] MEDS: SINEMET CR 50/200 (CARBIDOPA/LEVODOPA SA) TAB PO SCH ×2 (06:16→17:30)
[2021-07-12] MEDS: DIVALPROEX 250 MG DELAYED RELEASE (DEPAKOTE) TAB PO SCH ×2 (06:16→17:30)
[2021-07-12] MEDS: BETHANECHOL 25 MG (URECHOLINE) TAB PO SCH ×2 (06:16→17:30)
[2021-07-12] MEDS: MAGNESIUM 1 GM/100 ML IVPB 100 ML IV SCH (06:39)
--- NOTE | 2021-07-12 06:46 | Diagnostic Imaging Report ---
INDICATION: Pneumonia. TECHNIQUE: Single view chest 5:20 AM. CORRELATION STUDY: 07/10/2021 FINDINGS: Left-sided pacemaker stable. Cardiac enlargement of prominent mediastinum. Vascular appears increased from prior. Tubing, likely right IJ central line tip, not well visualized, remains in place. Elevated left diaphragm with patchy infiltrate-like opacities left mid and lower lung field. Minimal patchy density of the right mid lung, adversely changed. Probable small effusions. IMPRESSION: 1. Cardiac enlargement with what appears to be vascular congestion. Infiltrate and/or edema of both lung roque left greater than right overall appearing slightly more prominent along with small effusions. Dictated by: Dictated on workstation # [id number]
[2021-07-12] MEDS: ARTIFICAL TEARS 0.4 ML UNIT DOSE (REFRESH PLUS) OU SCH (08:03)
[2021-07-12] MEDS: PANTOPRAZOLE 40 MG (PROTONIX) TAB PO SCH (08:03)
[2021-07-12] MEDS: FUROSEMIDE 40 MG (LASIX) TAB PO SCH (08:08)
--- NOTE | 2021-07-12 08:52 | Physical Therapy Daily Note ---
PT Daily Note-Current Subjective Patient in bed pre tx, agrees to PT, voices no complaints of pain. Appearance Patient in recliner post tx with nurse call, phone, tray, all needs met. Mental Status Patient Orientation: Person, Place, Situation Attachments: Mclaughlin Catheter, IV Transfers SCALE: Activities may be completed with or without assistive devices. 6-Oxpxljdxnr-wjuaknf completes the activity by him/herself with no assistance from a helper. 5-Set-up or Clean-up Assistance-helper sets up or cleans up; patient completes activity. [place] assists only prior to or following the activity. 4-Supervision or Touching Assistance-helper provides verbal cues and/or touching/steadying and/or contact guard assistance as patient completes activit y. Assistance may be provided throughout the activity or intermittently. 3-Partial/Moderate Assistance-helper does LESS THAN HALF the effort. [place] lifts, holds or supports trunk or limbs, but provides less than half the effort. 2-Substantial/Maximal Assistance-helper does MORE THAN HALF the effort. [place] lifts or holds trunk or limbs and provides more than half the effort. 6-Xmpcnziob-rdslnz does ALL the effort. Patient does none of the effort to complete the activity. Or, the assistance of 2 or more helpers is required for the patient to complete the activity. If activity was not attempted, code reason: 7-Patient Refused. 9-Not Applicable-not attempted and the patient did not perform the activity before the current illness, exacerbation or injury. 10-Not Attempted due to Environmental Limitations-(lack of equipment, weather restraints, etc.). 88-Not Attempted due to Medical Conditions or Safety Concerns. Roll Left & Right (QC): 2 Lying to Sitting/Side of Bed(Q: 1 Sit to Stand (QC): 2 Chair/Zey-nb-Lccjy Xfer(QC): 2 Patient states he needs to have a bedpan, rolls to place bedpan (rolling in max assist to either side), when done rolls again to remove bedpan and for cleaning, then rolls again a couple of times to replace pad. Patient then sits to the side of the bed with assist of two people, leans heavily backward, then max assist stand pivot transfer to recliner. Treatments rolling, bed mobility and transfer Assessment Current Status: Poor Progress Patient requires at least max assist for transfers PT Intermediate Goals Carbon Grinder Goals PT Intermediate Goals Time Frame: Jul 21, 2021 Roll Left & Right (QC): 5 Sit to Lying (QC): 5 Lying-Sitting on Side/Bed(QC): 5 Sit to Stand (QC): 5 Chair/Bnn-os-Twonr Xfer(QC): 5 Toilet Transfer (QC): 5 Does the Patient Walk: Yes Walk 10 feet (QC): 5 Walk 50ft with 2 Turns (QC): 5 1 Step (curb) (QC): 5 4 Steps (QC): 5 PT Plan Problem List Problem List: Activity Tolerance, Functional Strength, Safety, Balance, Gait, Transfer, Bed Mobility, ROM Treatment/Plan Treatment Plan: Continue Plan of Care Treatment Plan: Bed Mobility, Concurrent Therapy, Functional Activity Vandana, Functional Strength, Gait, Therapeutic Exercise, Transfers Treatment Duration: Jul 21, 2021 Frequency: 6 times per week Estimated Hrs Per Day: .5 hour per day Patient and/or Family Agrees t: Yes Safety Risks/Education Patient Education: Transfer Techniques, Correct Positioning, Safety Issues Teaching Recipient: Patient Teaching Methods: Demonstration, Discussion Response to Teaching: Reinforcement Needed Time/GCodes Time In: 08 Time Out: 0837 Total Billed Treatment Time: 15 Total Billed Treatment 1 visit FA KYMBERLY MANJARREZ PT Jul 12, 2021 08:52
--- NOTE | 2021-07-12 09:11 | Occupational Ther Daily Note ---
OT Current Status-Daily Note Subjective Pt in bed, agreeable to therapy tx. Mental Status/Objective Patient Orientation: Person, Place, Situation Attachments: Mclaughlin Catheter, IV ADL-Treatment Therapy Code Descriptions/Definitions Functional [place] Measure: 0=Not Assessed/NA 4=Minimal Assistance 1=Total Assistance 5=Supervision or Setup 2=Maximal Assistance 6=Modified [place] 3=Moderate Assistance 7=Complete IndependenceSCALE: Activities may be completed with or without assistive devices. 6-Vqfvdakyeq-jmemlvy completes the activity by him/herself with no assistance from a helper. 5-Set-up or Clean-up Assistance-helper sets up or cleans up; patient completes activity. [place] assists only prior to or following the activity. 4-Supervision or Touching Assistance-helper provides verbal cues and/or darren jacqueline/steadying and/or contact guard assistance as patient completes activity. Assistance may be provided throughout the activity or intermittently. 3-Partial/Moderate Assistance-helper does LESS THAN HALF the effort. [place] lifts, holds or supports trunk or limbs, but provides less than half the effort. 2-Substantial/Maximal Assistance-helper does MORE THAN HALF the effort. [place] lifts or holds trunk or limbs and provides more than half the effort. 5-Wqjmzkjaw-ywemnr does ALL the effort. Patient does none of the effort to complete the activity. Or, the assistance of 2 or more helpers is required for the patient to complete the activity. If activity was not attempted, code reason: 7-Patient Refused. 9-Not Applicable-not attempted and the patient did not perform the activity before the current illness, exacerbation or injury. 10-Not Attempted due to Environmental Limitations-(lack of equipment, weather restraints, etc.). 88-Not Attempted due to Medical Conditions or Safety Concerns. Toileting Hygiene (QC): 1 (total assist with cleaning after BM at bed level.) Other Treatment Pt in bed, agreeable to getting up to recliner. Pt states need to use bed anders first. Pt rolled side to side for positioning of bed anders and cleaning post BM. Max A rolling side to side. Pt transferred supine to sit EOB with assist x2 (leans backwards heavily at EOB), then transferred to recliner. Max A sit to stand, then max A stand pivot transfer. Post tx, pt in recliner, call light in reach and all needs met. Education OT Patient Education: Correct positioning, Modified ADL techniques, Progress toward Goal/Update tx plan, Purpose of tx/functional activities, Rehab process Teaching Recipient: Patient Teaching Methods: Discussion Response to Teaching: Verbalize Understanding OT Longterm Goals Filer Helper Goals Time Frame: Jul 21, 2021 Eating (QC): 5 Oral Hygiene (QC): 5 Toileting Hygiene (QC): 3 Shower/Bathe Self (QC): 3 Upper Body Dressing (QC): 4 Lower Body Dressing (QC): 3 On/Off Footwear (QC): 3 Additional Goals: 1-Demonstrate ADL Tasks, 2-Verbalize Understanding, 3- ImproveStrength/Vandana 1=Demonstrate adherence to instructed precautions during ADL tasks. 2=Patient will verbalize/demonstrate understanding of assistive devices/modifications for ADL. 3=Patient will improve strength/tolerance for activity to enable patient to perform ADL's. OT Education/Plan Problem List/Assessment Assessment: Decreased Activ Tolerance, Decreased UE Strength, Dependent Transfers, Impaired Bed Mobility, Impaired Funct Balance, Impaired I ADL's, Impaired Self-Care Skills, Restricted Funct UE ROM Discharge Recommendations Plan/Recommendations: Continue POC Treatment Plan/Plan of Care Patient would benefit from OT for education, treatment and training to promote independence in ADL's, mobility, safety and/or upper extremity function for ADL's. Plan of Care: ADL Retraining, Functional Mobility, UE Funct Exercise/Act Treatment Duration: Jul 21, 2021 Frequency: 3 times per week (3-5 times per week.) Rehab Potential: Good Time/GCodes Start Time: 08:22 Stop Time: 08:37 Total Time Billed (hr/min): 14 Billed Treatment Time 1, ADL SHAKA BEAN OT Jul 12, 2021 09:11
--- NOTE | 2021-07-12 09:20 | Cardiology Progress Note ---
Subjective Date Seen by Provider: Jul 12, 2021 Time Seen by Provider: 08:25 Subjective/Events-last exam Patient is sitting up in chair. Continues to have some dyspnea with exertion. Denies any chest pain. Review of Systems General: No Chills, No Night Sweats; Fatigue, Malaise; No Appetite, No Other HEENT: No Head Aches, No Visual Changes, No Eye Pain, No Ear Pain, No Dysphasia, No Sinus Congestion, No Post Nasal Drip, No Sore Throat, No Other Pulmonary: No Dyspnea, No Cough, No Pleuritic Chest Pain, No Other Cardiovascular: Edema; No: Chest Pain, Palpitations, Orthopnea, Paroxysmal Noc. Dyspnea, Lt Headedness, Other Focused Exam Time of Focused Exam: 15:58 Objective-Cardiology Exam Last Set of Vital Signs Vital Signs 07/07/21 07/07/21 07/12/21 08:19 14:32 15:49 Temp 36.5 Pulse 89 Resp 20 B/P (MAP) 131/79 (96) Pulse Ox 94 O2 Delivery Room Air O2 Flow Rate 2.00 FiO2 28 I&O Intake and Output 07/12/21 00:00 Intake Total 540 ml Output Total 1000 ml Balance -460 ml Intake Oral 540 ml Output Urine Total 1000 ml # Bowel Movements 1 General: Alert, Oriented X3, Cooperative, No Acute Distress HEENT: Atraumatic Neck: Supple, No JVD Lungs: Other (bilat rhonchi) Heart: Regular Rate, Normal S1, Normal S2 Abdomen: Soft, No Tenderness Extremities: No Clubbing, No Edema Skin: No Rashes, No Significant Lesion Neuro: Normal Speech Psych/Mental Status: Mental Status NL, Mood NL Results Lab Laboratory Tests 07/12/21 05:20 A/P-Cardiology Admission Diagnosis Acute respiratory failure Hypotensive shock Lactic acidosis Cardiac pacemaker Assessment/Plan Status post acute respiratory failure, improved, still having some residual dyspnea CT chest showed bibasilar parenchymal consolidation, left greater. The left four vent chest tube does appear to be intraparenchymal in the left upper lobe with some surrounding left upper lobe hemorrhage. There was a small to moderate residual left-sided pneumothorax present. Dr. Forde was consulted, Thora vent was removed on July 05, 2021 with no complication Continue on antibiotic and monitor. Peripheral edema, improving after Lasix, continuing diuretic, still having left upper extremity swelling, continue with physical therapy and consider Joshua wrap Hypokalemia, replace and continue to monitor. Sepsis, pneumonia, receiving antibiotic and managed by primary care team. Status post hypotension, blood pressure is better, continue to monitor. Chronic persistent atrial fibrillation, has history of sinus node dysfunction a nd permanent pacemaker, currently in AV paced rhythm. Continue to monitor History of intracranial bleed after trauma, history of embolic stroke and hemorrhagic stroke, unable to tolerate long-term oral anticoagulation, had left atrial appendage clip done at in the past. Continue to monitor Permanent pacemaker, generator replaced in April 2020, good sensing and capture activity. Anemia, received blood transfusion on 06/06/2021, continue to monitor History of hypertension, currently normotensive, was initially hypotensive on admission to the hospital. History of seizure disorder. No witnessed seizure activity. Continue to monitor Mild bilateral carotid stenosis, continue to monitor Hyperlipidemia, monitor lipids Patient was seen and evaluated with Gissell, examination performed, management plan was discussed, agree with the current scribed note, I made few changes to the note using Italic font Patient was seen at bedside, feeling better Still having significant edema I will increase Lasix to 40 mg daily and monitor tolerance and response Replace potassium Monitor electrolytes. GISSELL MESSINA Jul 12, 2021 09:20 KEDAR BOYKIN MD Jul 12, 2021 16:12
--- NOTE | 2021-07-12 10:36 | ST Mod Barium Swallow ---
Speech Evaluation-General Medical Diagnosis Acute Respiratory Failure Onset Date: Jul 03, 2021 Therapy Diagnosis Therapy Diagnosis: Moderate to Severe Oropharyngeal Dysphagia Precautions Precautions: Fall, Aspiration Referral Referring Physician: Dr. Sneed Reason for Referral: Evaluation/Treatment (Modified Barium Swallow Evaluation) Medical History Pertinent Medical History: Atrial Fib, Arthritis, CAD, CVA, GERD, HTN, OA, Parkinson's, Smoking Current History The patient is an 85 year old male with a past medical history of HTN and Parkinson's disease, who presented to [facility] following a period of reduced responsiveness. The patient was found to be in acute respiratory failure with a left pneumothorax and concern for aspiration pneumonia. The patient was intubated in the emergency room on 07/03/21 and was extubated on 07/05/21. The patient is currently receiving a regular diet consistency with thin liquids. Chest Exam 07/10/21: IMPRESSION: Cardiomegaly with some left basilar atelectasis an/or pneumonitis and left pleural effusion. To note: The clinician's fluoroscopic view is skewed by the presence of the patient's shoulder in the radiographic view. Reviewed History: Yes Social History Current Living Status: Children (The patient resides with his son.) Speech Mod Barium Swallow Prior Level of Function The patient is currently receiving a regular diet consistency with thin liquids. The patient presents to the fluoroscopy suite on room air, however, appears short of breath and fatigued. Per patient, he consumes a regular diet with thin liquids at home (lives at home with his son). The patient reports he needs to "take it easy" with food and liquids or he "ends up choking." Additionally, the patient states he often "chokes on his own spit." The patient reports increased saliva production, yet also periods of xerostomia. The patient reports the choking episodes have occurred since a prior stroke in July 2018. Additionally, the patient stated he has been hospitalized with pneumonia "lots" over the past recent years. Oral Motor Skills Dentition Natural Dentures: Partial Lower (Per patient, he has experienced increased drooling and saliva production since a prior stroke in July 2018.) Lingual Protrusion: Normal Lingual ROM: Normal Lingual Strength: Abnormal (The patient appears overall fatigued and weak.) Velum: Normal Volitional Dry Swallow: Yes Voluntary Cough: Yes (The patient's cued cough is extremely weak and unproductive.) Can Clear Throat Volitionally: Yes (The patient can cue his throat with maximum verbal prompting.) Textures-Lateral View Lateral View Food Presentation: Thin Liquid via Spoon, Kanab Liquid via Spoon, Honey Liquid via Spoon, Honey Liquid via Cup (The patient was unable to draw material from the cup, independently.), Mechanial Soft Solids Oral Phase Labial Closure: Mild Impairment Bolus Formation Pooling L/R: No Impairment (WFL) Bolus Formation Placement: No Impairment (WFL) Mastication Rotary Chew: Vertical (Phasic.) A prolonged, mashing liked mastication was noted with the banana. A/P Lingual Propulsion: Moderate Impairment Lingual Movement: Moderate Impairment Oral Phase Residue: Mild Impairment (The patient displayed mild oral residue coating the lingual surface and palatal structure following the swallow with all consistencies.) The patient was presented with PO items from the clinician via spoon. The patient accepts the bolus appropriately with mildly reduced labial seal and strength. Decreased coordination and strength were present with the lingual and oral structures resulting in poor bolus formation. Lingual pumping was appreciated as the patient attempted to transfer the bolus posterior in the oral cavity for initiation of the pharyngeal swallow. Overall, the patient presents with moderate oral dysphagia. To note, the patient attempted to hold the glass and self-feed a cup edge sip of honey-thick liquid. Unfortunately, at this time, the patient is unable to support the cup to provide the PO trial. Pharyngeal Phase Swallow Response: Moderate Impairment (The patient triggered the pharyngeal swallow as the material reached the laryngeal surface of the epiglottis) Base of Tongue: Moderate Impairment Epiglottic Movement: Mild Impairment Laryngeal Elevation: Moderate Impairment Vallecular Residue: Mild Pharyngeal Wall Residue: Mild Piriform Sinus Residue: Moderate Laryngeal Penetration: Moderate (Thin liquid, Kanab-thick liquid, Honey-thick liquid, Puree) Aspiration Observations: Mild (Thin liquid, Kanab-thick liquid) The patient demonstrated a moderately delayed onset of the pharyngeal swallow, as the head of the bolus reached the laryngeal surface of the epiglottis, to at times the pyriform sinuses, prior to initiation. Laryngeal elevation and hyo- lareyngeal excursion were mild to moderately reduced resulting in decreased closure of the laryngeal vestibule throughout the height of the swallow. The reduced laryngeal closure allowed for DEEP LARYNGEAL PENETRATION (to the level of the true vocal cords) of thin liquid and nectar-thick liquid (via teaspoon) during the swallow with subsequent mild SILENT aspiration following the swallow. A cued throat clear and cough were attempted, however, were weak and inefficient at clearing the penetrated and aspirated material from the p roximal airway. Trace laryngeal penetration occurred during the swallow with honey-thick liquids. Trace laryngeal penetration was visualized following the swallow with puree consistencies secondary to moderate pyriform sinus residue. Moderately decreased base of tongue retraction and pharyngeal contractions were present. Mild residue remained in the valleculae space and coating the pharyngeal structures following the swallow. Moderate residue remained in the pyriform sinuses following the swallow. A cued second swallow was inefficient at reducing pyriform sinus residue. A subsequent honey-thick liquid bolus (via teaspoon) was mildly efficient at reducing pyriform sinus residue. Compensatory strategies could not be utilized during the modified barium swallow evaluation due to the patient's fluctuating ability to follow verbal directions. Esophageal Phase An esophageal view could not be obtained secondary to the use of the C-arm. Performed-A/P View Not Applicable/Performed (An AP view could not be obtained secondary to use of C-arm.) Summary/Impressions Oral Phase Impression: Moderate Impairment (The patient presents with moderate to severe oropharyngeal dysphagia.) The patient presented with moderate to severe oropharyngeal dysphagia characterized by decreased oral and lingual coordination, a delayed onset of the pharyngeal swallow, poor airway protection in the presence of bolus material (incomplete epiglottic inversion), decreased laryngeal elevation and excursion, reduced base of tongue retraction, and decreased pharyngeal contractions. The impairments resulted in SILENT aspiration of thin liquid and nectar-thick liquid following the swallow (with deep laryngeal penetration during the swallow), as well as, trace laryngeal penetration with honey-thick liquids during the swallow. The patient is most appropriate for the following recommendations: - Dysphagia one (puree) diet consistency with moderately thick (honey-thick) liquids, as tolerated. - Fully upright and alert for PO intake. - Small, single bites and sips. - Crush medication and consume in puree consistencies, as able. - Excellent and frequent oral care. - Remain upright for a minimum of twenty minutes following PO intake. - Monitor for s/s of suspected aspiration with PO intake. If demonstrated, place the patient NPO and contact speech pathology. - Speech pathology to provide skilled speech pathology services two times per week to focus on diet tolerance and strengthening exercises. Due to the patient's inability to consistently follow verbal instruction and his overall decreased health, he remains at an elevated risk for aspiration with all consistencies tested. Speech Short Term Goals Short Term Goals Short Term Goals 1. The patient will tolerate the least restrictive diet with 80% accuracy or greater. 2. The patient/caregiver will utilize compensatory strategies with 90% accuracy or greater. Speech Insole And Heel Stiffener Goals Insole And Heel Stiffener Goals 1. The patient will maintain adequate nutrition and hydration via safe and effective swallowing function. Speech-Plan Patient/Family Goals Patient/Family Goals: The patient's goal is to continue an oral diet. Treatment Plan Speech Therapy Treatment Plan: Continue Plan of Care Treatment Duration: Jul 26, 2021 Frequency: 2 times per week Estimated Hrs Per Day: .25 hour per day Rehab Potential: Fair Barriers to Learning: Age, Recent Complex Medical Status, Decreased Cognition Pt/Family Agrees to Plan: Yes Safety Risks/Education Teaching Recipient: Patient Teaching Methods: Discussion Response to Teaching: Reinforcement Needed Education Topics Provided: The patient and the clinician extensively discussed the patient's high aspiration risks with all consistencies, as well as, the diet consistency recommendations provided by the clinician on this date. At this time, the patient verbalized comprehension and denied additional questions for the therapists. Time Speech Therapy Time In: 10:00 Speech Therapy Time Out: 10:30 Total Billed Time: 30 Billed Treatment Time 1, MOD, DYST AMISHA Hodge Jul 12, 2021 10:36
--- NOTE | 2021-07-12 11:55 | Diagnostic Imaging Report ---
EXAMINATION: Modified barium swallow. INDICATION: Dysphagia. TECHNIQUE: This study was performed in the presence of the speech pathologist, Callie. 236.2 seconds of fluoro time was utilized. FINDINGS: The patient was given thin barium to swallow initially. He immediately aspirated the thin barium but did not produce a cough. Subsequently, there was penetration with the nectar consistency barium. There is no clear evidence for aspiration or penetration with the honey, applesauce, or banana consistency samples. IMPRESSION: The swallowing mechanism is compromised as there was aspiration with the thin barium and penetration with the nectar consistency barium. There was no cough elicited with the aspiration. Dictated by: Dictated on workstation # [id number]
[2021-07-12] MEDS: TAMSULOSIN 0.4 MG (FLOMAX) CAP PO SCH (17:30)
[2021-07-12] MEDS: ENOXAPARIN 40 MG/0.4 ML (LOVENOX) SYR SC SCH (17:30)
--- NOTE | 2021-07-12 18:34 | Progress Note ---
Subjective Date Seen by a Provider: Jul 12, 2021 Time Seen by a Provider: 12:45 Subjective/Events-last exam Fwup acute respiratory failure, Pneumonia with sepsis, generalized weakness, parkinson's. Sitting up in bed. Had aspiration with liquids and nectar consistency on modified barium swallow with no cough. Appetite is improving. Still not able to support himself to even stand--very weak. Focused Exam Time of Focused Exam: 15:58 Objective Exam Vital Signs Date Time Temp Pulse Resp B/P (MAP) Pulse Ox O2 Delivery O2 Flow Rate FiO2 07/12/21 15:49 36.5 89 20 131/79 (96) 94 Room Air 07/12/21 12:00 36.5 83 20 107/67 (80) 95 Room Air 07/12/21 08:00 36.4 82 20 127/85 (99) 99 Room Air 07/12/21 08:00 Room Air 07/12/21 07:24 98 Room Air 07/12/21 04:02 36.2 81 17 116/75 (89) 94 Room Air 07/12/21 02:10 95 Room Air 07/12/21 00:00 36.3 87 18 103/68 (80) 94 Room Air 07/11/21 21:23 98 Room Air 07/11/21 20:59 Room Air 07/11/21 19:48 36.8 88 20 102/65 (77) 95 Room Air I & O 07/12/21 06:59 Intake Total 490 ml Output Total 875 ml Balance -385 ml Capillary Refill : Greater Than 3 Seconds General Appearance: No Apparent Distress Neck: Supple Respiratory: Lungs Clear Cardiovascular: Regular Rate, Rhythm, Systolic Murmur Gastrointestinal: normal bowel sounds, non tender, soft Extremity: Non Tender, No Calf Tenderness, Other (left arm edema) Neurologic/Psychiatric: Alert, Oriented x3 Results Lab Laboratory Tests 07/11/21 21:06: Glucometer 101 07/12/21 05:20: White Blood Count 4.1L, Red Blood Count 2.81L, Hemoglobin 10.1L, Hematocrit 30L, Mean Corpuscular Volume 108H, Mean Corpuscular Hemoglobin 36H, Mean Corpuscular Hemoglobin Concent 33, Red Cell Distribution Width 16.6H, Platelet Count 148, Mean Platelet Volume 9.7, Sodium Level 137, Potassium Level 3.4L, Chloride Level 104, Carbon Dioxide Level 25, Anion Gap 8, Blood Urea Nitrogen 5L, Creatinine 0.47L, Estimat Glomerular Filtration Rate 171, BUN/Creatinine Ratio 11, Glucose Level 95, Calcium Level 8.1L, Corrected Calcium 9.5, Phosphorus Level 2.5, Magnesium Level 1.8, Total Bilirubin 0.6, Aspartate Amino Transf (AST/SGOT) 41H, Alanine Aminotransferase (ALT/SGPT) 12, Alkaline Phosphatase 70, Total Protein 4.4L, Albumin 2.3L 07/12/21 11:06: Glucometer 113H 07/12/21 15:36: Glucometer 95 Microbiology 07/03/21 Gram Stain - Final, Complete 07/03/21 Sputum Culture - Final, Complete Usual upper respiratory salma 07/03/21 Blood Culture - Final, Complete No growth 07/03/21 Urine Culture - Final, Complete 3 or more isolates Assessment/Plan Assessment/Plan Assess & Plan/Chief Complaint 1. Acute Respiratory Failure--improved, off oxygen 2. Hypovolemic/Septic Shock--resolved 3. Acute Renal Failure--resolved 4. History of atrial fibrillation--cardiology consulted 5. History of Previous Hemorrhagic Stroke with Fci Deficits 6. Parkinson's--treated with sinemet 7. Recent Right hip fracture with surgery 8. Pneumonia--on meropenem 9. Left Pneumothorax--resolved 10. Thrombocytopenia--improved even with lovenox restarted 11. Weakness--PT/OT started, DC to SNF at [facility] tomorrow 12. Dysphagia--applesauce consistency liquids and pureed diet after barium swallow results 13. Hypokalemia-on replacement 14. Left arm swelling--does not look like DVT looks like third spacing--will wrap and continue oral lasix and potassium Clinical Quality Measures Admission Status Admission Dx 1. Acute Respiratory Failure--sedated on ventilator with pulmonary consult, will cover with wide spectrum antibiotics for possible aspiration, cover with heparin for possible PE, V/Q scan ordered for morning 2. Hypovolemic/Septic Shock--aggressive IVF rehydration, pressors prn for BP support, broad spectrum IV antibiotics 3. Acute on Chronic Renal Failure--IVFs and monitor BUN/Cr 4. History of Seizure Disorder--sedated with propofol drip 5. History of Atrial Fibrillation--monitor on telemetry 6. History of Previous CVA and Hemorrhagic Stroke--family understands risk of heparin and is agreeable to cover due to possible PE 7. Recent Right Hip Fracture--S/P surgery 8. Parkinson's Discussed with daughter and son. They understand grave condition NAPOLEON AKHTAR DO Jul 12, 2021 18:34
[2021-07-12] MEDS ORDERED: APIX2.5T PO (18:40)
[2021-07-12] MEDS ORDERED: FURO40TA4 PO (18:40)
[2021-07-12] MEDS ORDERED: POTA-169 PO (18:40)
[2021-07-12] MEDS ORDERED: AMOX-355 PO (18:40)
--- NOTE | 2021-07-12 18:44 | Discharge Inst-Skilled Nursing ---
Discharge Inst-Skilled NF Reconcile Patient Problems Problems Reviewed?: Yes Patient Instructions Patient Problems: Pneumonia with Sepsis Severe Debility Congestive Heart Failure Right hip fracture Parkinson's History of previous stroke with fdc residual Consult/Follow Up/Orders Follow Up Appt.: Dr. Sneed in 2 weeks Skilled NF Admit to: [facility] ([facility]) I certify that [facility] services are required to be given on an inpatient basis because of the above named patient's need for fci care on a continuing basis for the conditions(s) for which he/she was receiving inpatient hospital services prior to his/her transfer to the [facility]. Care Home Facility Order: Finance Teacher-Evaluate & Treat, Physical Therapy-Evaluate & Treat, Speech Language-Evaluate & Treat Oxygen Delivery Method: Room Air Discharge Diet: Soft Diet (pureed with thickened liquids to applesauce consistency), Other Diet (thickened liquids to applesauce consistency) Daily Activity as Tolerated: Yes Resuscitation Status: Do Not Resuscitate New & Resume Previous Orders New & Resume Previous Orders Chem 7 and CBC in 2 weeks CXR in 1 week for fwup on pneumonia Jailene Sneed Jul 12, 2021 18:40 JAILENE SNEED DO Jul 12, 2021 18:44
[2021-07-12] MEDS: SERTRALINE 50 MG (ZOLOFT) TABLET PO SCH (21:11)
[2021-07-13 04:00] VITALS: BP 123/85
[2021-07-13 05:31] LABS: POTASSIUM 3.5 MMOL/L (3.6-5.0)
[2021-07-13 05:32] LABS: CALCIUM 8.2 MG/DL (8.5-10.1)
[2021-07-13] MEDS: KCL 20 MEQ TAB (K-DUR) PO SCH ×2 (05:32→05:46)
[2021-07-13] MEDS: POTASSIUM CL 10MEQ/50ML IVPB 50 ML IV SCH ×3 (05:32→07:22)
[2021-07-13 05:36] LABS: PHOSPHORUS 2.6 MG/DL (2.3-4.7)
[2021-07-13] MEDS: inSUlin ASPART (NovoLOG) 1 UNIT/0.01 ML (CHARGE PER UNIT) SC SCH ×2 (05:36→11:00)
[2021-07-13 05:37] LABS: CREATININE SERUM 0.53 MG/DL (0.60-1.30)
[2021-07-13 05:39] LABS: MAGNESIUM 1.8 MG/DL (1.6-2.4)
[2021-07-13] MEDS: BETHANECHOL 25 MG (URECHOLINE) TAB PO SCH (05:46)
[2021-07-13] MEDS: SINEMET CR 50/200 (CARBIDOPA/LEVODOPA SA) TAB PO SCH (05:46)
[2021-07-13] MEDS: MEROPENEM 500 MG in NS (IVPB) 100 ML IV SCH (05:46)
[2021-07-13] MEDS: DIVALPROEX 250 MG DELAYED RELEASE (DEPAKOTE) TAB PO SCH (05:46)
[2021-07-13] MEDS: MAGNESIUM 1 GM/100 ML IVPB 100 ML IV SCH (06:51)
[2021-07-13] MEDS: LACTATED RINGERS 1,000 ML IV SCH (06:52)
[2021-07-13] MEDS: RT-ALBUTEROL/IPRATROPIUM 3 ML (DUONEB) VIAL INH SCH ×2 (07:08→10:35)
[2021-07-13 08:00] VITALS: BP 141/74
[2021-07-13] MEDS: FUROSEMIDE 40 MG (LASIX) TAB PO SCH (08:14)
[2021-07-13] MEDS: ARTIFICAL TEARS 0.4 ML UNIT DOSE (REFRESH PLUS) OU SCH (08:14)
[2021-07-13] MEDS: PANTOPRAZOLE 40 MG (PROTONIX) TAB PO SCH (08:14)
[2021-07-13] MEDS ORDERED: FLU QUAD HIGH DOSE 240 MCG/0.7 ML 2021-22 (FLUZONE) IM ONE (08:45)
--- NOTE | 2021-07-13 08:48 | Cardiology Progress Note ---
Subjective Date Seen by Provider: Jul 13, 2021 Time Seen by Provider: 08:47 Subjective/Events-last exam Patient is sitting up in bed, no new complaints. Still having dysphagia, failed swallow eval yesterday Review of Systems General: No Chills, No Night Sweats, No Fatigue; Malaise; No Appetite, No Other HEENT: No Head Aches, No Visual Changes, No Eye Pain, No Ear Pain, No Dysphasia, No Sinus Congestion, No Post Nasal Drip, No Sore Throat, No Other Pulmonary: No Dyspnea, No Cough, No Pleuritic Chest Pain, No Other Cardiovascular: No: Chest Pain, Palpitations, Orthopnea, Paroxysmal Noc. Dyspnea, Edema, Lt Headedness, Other Focused Exam Time of Focused Exam: 15:58 Objective-Cardiology Exam Last Set of Vital Signs Vital Signs 07/07/21 07/13/21 08:19 11:49 Temp 36.5 Pulse 90 Resp 18 B/P (MAP) 117/59 (78) Pulse Ox 93 O2 Delivery Nasal Cannula O2 Flow Rate 2.00 FiO2 28 I&O Intake and Output 07/13/21 00:00 Intake Total 990 ml Output Total 3200 ml Balance -2210 ml Intake Oral 990 ml Output Urine Total 3200 ml # Bowel Movements 1 General: Alert, Oriented X3, Cooperative, No Acute Distress HEENT: Atraumatic Neck: Supple, No JVD Lungs: Other (bilat rhonchi) Heart: Regular Rate, Normal S1, Normal S2 Abdomen: Soft, No Tenderness Extremities: No Clubbing, No Edema Skin: No Rashes, No Significant Lesion Neuro: Normal Speech Psych/Mental Status: Mental Status NL, Mood NL Results Lab Laboratory Tests 07/13/21 05:07 A/P-Cardiology Admission Diagnosis Acute respiratory failure Hypotensive shock Lactic acidosis Cardiac pacemaker Assessment/Plan Status post acute respiratory failure, improved, still having some residual dyspnea CT chest showed bibasilar parenchymal consolidation, left greater. The left four vent chest tube does appear to be intraparenchymal in the left upper lobe with some surrounding left upper lobe hemorrhage. There was a small to moderate residual left-sided pneumothorax present. Dr. Forde was consulted, Thora vent was removed on July 05, 2021 with no complication Continue on antibiotic and monitor. Peripheral edema, improving after Lasix, continuing diuretic, still having left upper extremity swelling, continue with physical therapy and continue Joshua wrap Hypokalemia, replace and continue to monitor. Sepsis, pneumonia, receiving antibiotic and managed by primary care team. Status post hypotension, blood pressure is better, continue to monitor. Dysphagia, failed swallow eval, continue to thickened liquids Chronic persistent atrial fibrillation, has history of sinus node dysfunction and permanent pacemaker, currently in AV paced rhythm. Continue to monitor History of intracranial bleed after trauma, history of embolic stroke and hemorrhagic stroke, unable to tolerate long-term oral anticoagulation, had left atrial appendage clip done at in the past. Continue to monitor Permanent pacemaker, generator replaced in April 2020, good sensing and capture activity. Anemia, received blood transfusion on 06/06/2021, continue to monitor History of hypertension, currently normotensive, was initially hypotensive on admission to the hospital. History of seizure disorder. No witnessed seizure activity. Continue to monitor Mild bilateral carotid stenosis, continue to monitor Hyperlipidemia, monitor lipids Supervisory-Addendum Brief Supervisory Addendum Participated in pt care: history, MDM, physical Personally performed: exam, history, MDM Care discussed with: ALBINO Results interpretation: Verified all documentation Notes: Patient was seen and evaluated with Gissell, examination performed, management plan was discussed, agree with the current scribed note, I made few changes to the note using Italic font Patient was seen at bedside, laying down comfortably, still having generalized fatigue Swallowing study results were reviewed Patient is probably being transferred to a half-way facility. Continue on diuretics and monitor as an outpatient GISSELL MESSINA Jul 13, 2021 08:48 KEDAR BOYKIN MD Jul 13, 2021 12:27
[2021-07-13 11:49] VITALS: BP 117/59
--- NOTE | 2021-07-14 10:55 | Discharge Summary ---
Diagnosis/Chief Complaint Date of Admission Jul 03, 2021 at 16:15 Date of Discharge Jul 13, 2021 at 13:50 Discharge Date: Jul 13, 2021 Discharge Diagnosis 1. Acute Respiratory Failure--Resolved, S/P vent, off oxygen 2. Hypovolemic/Septic Shock--resolved 3. Acute Renal Failure--resolved 4. History of atrial fibrillation--stable 5. History of Previous Hemorrhagic Stroke with Fci Deficits 6. Parkinson's--treated with sinemet 7. Recent Right hip fracture with surgery 8. Pneumonia--clinically improving 9. Left Pneumothorax--resolved 10. Thrombocytopenia--improved even with lovenox restarted 11. Weakness--PT/OT started, DC to SNF at [facility] 12. Dysphagia--applesauce consistency liquids and pureed diet after barium swallow results 13. Hypokalemia-on replacement 14. Left arm swelling--does not look like DVT looks like third spacing--will wrap and continue oral lasix and potassium 15. Pulmonary Edema/Acute Diastolic CHF--on lasix 16. Dysphagia with Aspiration--diet changed to dysphagia 2 with applesauce consistency liquids 17. Acute on Chronic Anemia--H/H stable Reason Hospital Visit This is a 85 year old male who was in [place] [facility] [place] [facility] for a recent right hip fracture. He had been up to lunch today then asked for assistance to the bathroom. Following his transfers from the toilet and then back to a chair, he was noted to be less responsive with drooling. His vitals w ere done and he was found to be hypoxic. He was placed on oxygen and his condition deteriorated so EMS was called. The patient apparently rescinded his DNR and arrived in the emergency room in acute respiratory failure and agreed to intubation. He was in hypovolemic shock and was started on agressive IVFs and IV levophed. A chest tube was also placed due to elevated hemidiaphragm and concern for tension pneumothorax. The patient's labs revealed an elevated WBC count of 20,400 with elevated lactic acid 3.14. COVID as well as Influenza A and B were negative. He has a history of previous stroke as well as choking with eating at times so there is concern for aspiration pneumonia. CXR showed no obvious pneumonia. He is post-op so there is concern for possible PE. He also has a history of seizure disorder so seizure is a consideration as well. At this time he will be admitted to the ICU on the ventilator, covered with broad spectrum antibiotics, pressure support and we will start heparin for prophylaxis for possible PE. His family understands the risk of the bleeding with the heparin and his guarded condition. Discharge Summary Hospital Course Was the Problem List Reviewed?: Yes Hospital Course This is a 85 year old male who was in [place] [facility] [place] [facility] for a recent right hip fracture. He had been up to lunch the day of admission then asked for assistance to the bathroom. Following his transfers from the toilet and then back to a chair, he was noted to be less responsive with drooling. His vitals were done and he was found to be hypoxic. He was placed on oxygen and his condition deteriorated so EMS was called. The patient apparently rescinded his DNR and arrived in the emergency room in acute respiratory failure and agreed to intubation. He was in hypovolemic shock and was started on agressive IVFs and IV levophed. A thoravent was also placed due to elevated hemidiaphragm and concern for tension pneumothorax. The patient's labs revealed an elevated WBC count of 20,400 with elevated lactic acid 3.14. COVID as well as Influenza A and B were negative. He has a history of previous stroke as well as choking with eating at times so there is concern for aspiration pneumonia. CXR showed no obvious pneumonia. He is post-op so there is concern for possible PE. He also has a history of seizure disorder so seizure is a consideration as well. He was admitted to the ICU on the ventilator, covered with broad spectrum antibiotics, pressure support with levophed and started on heparin for prophylaxis for possible PE. His family understands the risk of the bleeding with the heparin and his guarded condition. He was also in acute renal failure with a BUN and Cr of 58 and 2.34 r espectively. A V/Q scan was originally ordered due to his renal failure. By the following hospital day, his BUN and Cr were improved to 45 and 1.61 so he under a CT angiogram of the chest instead of the V/Q scan. The CT of the chest showed no PE but did reveal bibasilar atelectesis with a pneumothorax from the thoravent placement on the left. Surgery was consulted to assess the patient for pulling the thoravent and possibly placing a chest tube if needed. The heparin drip was discontinued and the patient was started on lovenox dosing for DVT prophylaxis. The following day the thoravent was pulled under radiology and surgery supervision and the pneumothorac actually resolved and no chest tube had to be placed. He was noted to have some thrombocytopenia down to 77,000 so his lovenox was held. It was felt like this was likely from the heparin so his lovenox was restarted on 07/11/21 since his platelets were up to 120. He had no drop in his platelets after resuming the lovenox. He was extubated on 07/07/21. His broad spectrum antibiotics ended after 5 days but his CXR still showed lower lobe infiltrates so he was started on meropenem. He was also given IV lasix and then started on oral lasix for pulmonary vascular congestion. He was moved to the medical floor and weaned off of oxygen and his oxygen saturation has remained stable on room air. PT and OT were started while the patient was still in the ICU but he is still not bearing any weight on his own. There was concern about aspiration so a modified barium swallow was completed and the patient did indeed have immediate aspiration with liquids and nectar consistency liquids with no cough associated with this. His diet was changed to dysphagia 2 with thickened liquids to applesauce consistency. His left arm was swollen but no redness and no tenderness and it looked like edema from IV infiltration and third spacing--this was elevated and wrapped and was improving slightly by discharge. His renal failure was resolved by discharge. His H/H are stable and his platelet count is improved. The patient's daughter wanted the patient discharged to another [facility] so [facility] did have a bed available and that is where the patient was discharged to. He has a pending appointment with Dr. Quiñonez in 2 weeks and will keep that and will also see me in 2 weeks. The patient was given high dose flu shot prior to discharge and his chase catheter was left in but orders were given to start bladder training and then DC the chase catheter at the [facility]. He will have 7 days of augmentin and then have a repeat CXR. He will be on low dose eliquis for DVT prophylaxis with repeat CBC in 2 weeks. Labs Laboratory Tests 07/11/21 21:06: 07/12/21 05:20: White Blood Count 4.1L, Red Blood Count 2.81L, Hemoglobin 10.1L, Hematocrit 30L, Mean Corpuscular Volume 108H, Mean Corpuscular Hemoglobin 36H, Red Cell Distribution Width 16.6H, Potassium Level 3.4L, Blood Urea Nitrogen 5L, Creatinine 0.47L, Calcium Level 8.1L, Aspartate Amino Transf (AST/SGOT) 41H, Total Protein 4.4L, Albumin 2.3L 07/12/21 11:06: Glucometer 113H 07/12/21 15:36: 07/12/21 20:06: 07/13/21 05:07: Potassium Level 3.5L, Blood Urea Nitrogen 4L, Creatinine 0.53L, Calcium Level 8.2L 07/13/21 11:20: Glucometer 130H Procedures None. Discharge Physical Examination Allergies: Coded Allergies: Cobamamide (Unverified Allergy, Unknown, MEMORY LOSS, 01/18/14) cyanocobalamin (Unverified Allergy, Unknown, MEMORY LOSS, 01/18/14) fentanyl (Verified Allergy, Unknown, 12/08/15) lactose (Verified Allergy, Unknown, 03/03/18) morphine (Verified Allergy, Unknown, Pt has received tramadol in the past, 06/06/21) codeine (Unverified Adverse Reaction, Mild, SICK, 08/23/15) promethazine HCl (Unverified Adverse Reaction, Mild, LOSS OF MEMORY, 04/12/11) hydrocodone (Verified Adverse Reaction, Unknown, 12/08/15) low blood pressure Uncoded Allergies: narcotics (Adverse Reaction, Unknown, 12/08/15) Vitals & I&Os Vital Signs Date Time Temp Pulse Resp B/P (MAP) Pulse Ox O2 Delivery O2 Flow Rate FiO2 07/13/21 13:00 Nasal Cannula 07/13/21 11:49 36.5 90 18 93 2.00 General Appearance: Alert, Oriented X3, No Acute Distress Respiratory: Clear to Auscultation Cardiovascular: Regular Rate, Other (Murmur) Abdominal: Normal Bowel Sounds, Soft, No Tenderness Extremities: No Clubbing, No Cyanosis, Other (LUE edema) Neuro: Other (nonmobile, unable to bear weight on legs due to weakness) Psych/Mental Status: Mental Status NL Discharge Home Medications Reviewed and agree with Discharge Medication list on patient's Discharge Instruction sheet Instructions to Patient/Family Please see electronic discharge instructions given to patient. NAPOLEON AKHTAR DO Jul 14, 2021 10:55
== END 2021-07-13 13:50 | DRG 871 ==
LOC: EDUNIT# 14:05 → ER 14:07 → ICU 16:15 → 4TH 07-07 13:55
PROVIDERS: ADMIT Family Medicine; ATTEND Family Medicine
PROC: 02HV33Z Insertion of Infusion Device into Superior Vena Cava, Percutaneous Approach (ICD-10-PCS; principal; 2021-07-03)
PROC: 5A1945Z Respiratory Ventilation, 24-96 Consecutive Hours (ICD-10-PCS; 2021-07-03)
PROC: 0BH17EZ Insertion of Endotracheal Airway into Trachea, Via Natural or Artificial Opening (ICD-10-PCS; 2021-07-03)
DX: A41.9 Sepsis, unspecified organism (principal); R65.21 Severe sepsis with septic shock; R57.1 Hypovolemic shock; J96.01 Acute respiratory failure with hypoxia; J69.0 Pneumonitis due to inhalation of food and vomit; J18.9 Pneumonia, unspecified organism; I50.31 Acute diastolic (congestive) heart failure; N17.9 Acute kidney failure, unspecified; J93.9 Pneumothorax, unspecified; E87.2 Acidosis; I48.19 Other persistent atrial fibrillation; I13.0 Hypertensive heart and chronic kidney disease with heart failure and stage 1 through stage 4 chronic kidney disease, or unspecified chronic kidney disease; G20 Parkinson's disease; J45.909 Unspecified asthma, uncomplicated; Z20.822 Contact with and (suspected) exposure to COVID-19; N40.0 Benign prostatic hyperplasia without lower urinary tract symptoms; M19.90 Unspecified osteoarthritis, unspecified site; G89.29 Other chronic pain; M54.9 Dorsalgia, unspecified; F32.A Depression, unspecified; D72.829 Elevated white blood cell count, unspecified; G40.909 Epilepsy, unspecified, not intractable, without status epilepticus; D64.9 Anemia, unspecified; Z66 Do not resuscitate; I65.23 Occlusion and stenosis of bilateral carotid arteries; D69.6 Thrombocytopenia, unspecified; M79.89 Other specified soft tissue disorders; R53.1 Weakness; E87.6 Hypokalemia; E78.5 Hyperlipidemia, unspecified; Z88.5 Allergy status to narcotic agent; Z95.0 Presence of cardiac pacemaker; Z79.82 Long term (current) use of aspirin; Z79.899 Other long term (current) drug therapy; Z89.9 Acquired absence of limb, unspecified; Z86.73 Personal history of transient ischemic attack (TIA), and cerebral infarction without residual deficits
CPT/HCPCS: 31500; 36415; 51702; 71045; 71250; 71275; 74230; 80048; 80053; 80164; 81000; 82805; 82947; 83605; 83735; 84100; 84145; 84478; 84484; 85007; 85025; 85027; 85379; 85610; 85730; 86022; 86141; 87040; 87070; 87077; 87081; 87088; 87186; 87205; 87636; 93005; 93306; 93970; 94002; 94003; 94640; 94760; 94799; 96365; 96367; 96368; 96375; 99291

== ENCOUNTER 2021-07-28 09:37 | Inpatient (IN) | payer MEDICARE ==
[~2021-07-28] VITALS: Ht 165 cm; Wt 85.6 kg
[~2021-07-28 09:37] MED LIST changes: +ACET-2840 PO; +AMOX-355 PO; +APIX2.5T PO; +CARB12DR OU; -ETOMIDATE IV SOLN 20 MG/10 ML VIAL IV ONE; +FERR-74 PO; +ONDA-105 PO; +POTA-169 PO; -ROCURONIUM 10 MG/ML 5 ML SYRINGE IV ONE; +SENN-145 PO; +TRAM50TA3 PO
[2021-07-28] MEDS: NS IV 1000 ML 1,000 ML IV SCH ×4 (10:02→22:00)
[2021-07-28 10:18] LABS: BASOPHILS # (AUTO) 0.1 10^3/uL (0.0-0.1); BASOPHILS % (AUTO) 0 % (0-10); EOSINOPHILS # (AUTO) 0.1 10^3/uL (0.0-0.3); EOSINOPHILS % (AUTO) 1 % (0-10); HEMATOCRIT 59 % (40-54); HEMOGLOBIN 18.8 g/dL (13.3-17.7); LYMPHOCYTES # (AUTO) 1.3 10^3/uL (1.0-4.0); LYMPHOCYTES % (AUTO) 8 % (12-44); MEAN CORPUSCULAR HEMOGLOBIN 36 pg (25-34); MEAN CORPUSCULAR HGB CONC 32 g/dL (32-36); MEAN CORPUSCULAR VOLUME 112 fL (80-99); MEAN PLATELET VOLUME 11.4 fL (9.0-12.2); MONOCYTES % (AUTO) 13 % (0-12); NEUTROPHILS # (AUTO) 11.8 10^3/uL (1.8-7.8); NEUTROPHILS % (AUTO) 77 % (42-75); PLATELET COUNT 194 10^3/uL (130-400); WHITE BLOOD COUNT 15.4 10^3/uL (4.3-11.0)
[2021-07-28 10:23] LABS: INR 1.3 (0.8-1.4); PROTHROMBIN TIME PATIENT 16.2 SEC (12.2-14.7)
[2021-07-28 10:38] LABS: VALPROIC ACID 54.4 UG/ML (50.0-100.0)
[2021-07-28 10:47] LABS: BAND NEUTROPHILS 4 %; LYMPHOCYTES % (MANUAL) 2 %; MONOCYTES % (MANUAL) 12 %; NEUTROPHILS % (MANUAL) 74 %
[2021-07-28 10:48] LABS: BASOPHILS % (MANUAL) 0 %; EOSINOPHILS % (MANUAL) 0 %; NUCLEATED RED BLOOD CELLS 1; RBC MORPH NORMAL; REACTIVE LYMPHOCYTES 8 %
[2021-07-28 11:04] LABS: ABG BASE EXCESS -0.5 MMOL/L (-2.5-2.5); ABG OXYGEN SATURATION 91 % (94-100); ABG PCO2 37 MMHG (35-45); ABG PH 7.42 (7.37-7.43); ABG PO2 72 MMHG (79-93); ABG TCO2 24.9 MMOL/L (21.0-31.0)
[2021-07-28 11:04] LABS: ALBUMIN 3.6 GM/DL (3.2-4.5)
[2021-07-28 11:05] LABS: INSPIRED O2 ROOM AIR; PATIENT TEMP 96.4; VENTILATOR NO
[2021-07-28 11:05] LABS: POTASSIUM 4.4 MMOL/L (3.6-5.0)
[2021-07-28 11:06] LABS: CALCIUM 10.5 MG/DL (8.5-10.1)
[2021-07-28 11:09] LABS: BILIRUBIN,TOTAL 1.2 MG/DL (0.1-1.0)
[2021-07-28 11:11] LABS: CREATININE SERUM 2.93 MG/DL (0.60-1.30)
[2021-07-28 11:13] LABS: MAGNESIUM 2.4 MG/DL (1.6-2.4)
--- NOTE | 2021-07-28 11:14 | Diagnostic Imaging Report ---
Indication: Chest pain. Unresponsive patient. COMPARISON: 07/12/2021 FINDINGS: Single frontal radiograph view the chest was obtained and demonstrates persistent low inspiratory volumes with asymmetric elevation left hemidiaphragm and small left effusion. Patchy airspace opacities are also noted in the right base. Otherwise, aeration is improved compared to prior exam. Cardiac silhouette is partially obscured, but appears enlarged. Pulmonary vasculature is within normal limits. Left-sided 2-lead pacemaker is noted. IMPRESSION: 1. Low lung volumes with small left effusion and probable patchy right basilar atelectasis. 2. Cardiomegaly. Dictated by: Dictated on workstation # [id number]
[2021-07-28] MEDS ORDERED: NS IV 1000 ML 1,000 ML IV STA (11:35)
[2021-07-28 12:09] LABS: CLARITY,URINE SL CLOUDY; COLOR,URINE DARK YELLOW; GLUCOSE, URINE (UA) NEGATIVE (NEGATIVE); KETONES,URINE 1+ (NEGATIVE); LEUKOCYTE ESTERASE ,URINE NEGATIVE (NEGATIVE); NITRITE,URINE NEGATIVE (NEGATIVE); PROTEIN,URINE TRACE (NEGATIVE)
--- NOTE | 2021-07-28 12:13 | Diagnostic Imaging Report ---
EXAMINATION: CT head without contrast. TECHNIQUE: Multiple contiguous axial images were obtained through the brain without the use of intravenous contrast. All CT scans use one or more of the following dose optimizing techniques: automated exposure control, MA and/or KvP adjustment based on patient size and exam type or iterative reconstruction. HISTORY: Altered mental status. Lethargy. COMPARISON: 12/08/2015. FINDINGS: No large acute territorial ischemia, mass, or hemorrhage. No midline shift or mass effect. Old infarct is seen in the right frontal lobe. Decreased attenuation is seen in the periventricular and subcortical white matter. The ventricles and cortical sulci are prominent. The basilar cisterns are patent and unremarkable. The orbits are normal. Paranasal sinuses are normal. Mastoid air cells are clear. No soft tissue abnormality is seen. No osseous lesions or fractures are seen. IMPRESSION: 1. No large acute territorial ischemia, mass, or hemorrhage. 2. Chronic microvascular disease. Old infarct is seen in the right frontal lobe, similar to the prior exam. 3. Generalized parenchymal volume loss. Dictated by: Dictated on workstation # [id number]
--- NOTE | 2021-07-28 12:17 | ED Syncope ---
General Chief Complaint: Respiratory Problems Stated Complaint: UNRESPONSIVE Nursing Triage Note: ARRIVES FROM [facility] TO ROOM 09. IT IS REPORTED PATIENT IS REQUIRING OXYGEN TO KEEP SATURATIONS ABOVE 90%. PATIENT IS LETHARGIC BUT FOLLOWS COMMANDS AND IS ABLE TO STATE NAME. Source of Information: Patient Exam Limitations: No Limitations History of Present Illness Date Seen by Provider: Jul 28, 2021 Time Seen by Provider: 09:38 Initial Comments This 85-year-old gentleman presents to the emergency room via [facility] where he had a syncopal episode. He reported feeling nauseated this morning. Staff helped him to the bathroom where he reportedly lost con sciousness while on the toilet. He was hypoxic and unresponsive for them for period of time. EMS reports he was minimally responsive but was opening his eyes spontaneously. He retained pulse and independent breathing. He did require 8 L of oxygen by mask according to EMS. Oxygen saturations are in the mid 90s on room air upon arrival to the ER. He is able to answer some questions and state his first name. He reports being short of breath but denies any pain. His daughter, who is also his DPOA, states that he has had some productive or wet sounding cough over the last couple of days. Patient has a full CODE STATUS. He previously had a DNR but revoked that when he was admitted in June for respiratory failure and was intubated. Patient also had a hip replacement in May after having a fall and hip fracture. He has history of atrial fibrillation and is anticoagulated on Eliquis despite having had a previous hemorrhagic stroke. Dr. Sneed is his primary care provider and Dr. Quiñonez is his hand sprayer. Daughter reports there have been some recent changes to his blood pressure or cardiac medications. Allergies and Home Medications Allergies Coded Allergies: Cobamamide (Unverified Allergy, Unknown, MEMORY LOSS, 01/18/14) cyanocobalamin (Unverified Allergy, Unknown, MEMORY LOSS, 01/18/14) fentanyl (Verified Allergy, Unknown, 12/08/15) lactose (Verified Allergy, Unknown, 03/03/18) morphine (Verified Allergy, Unknown, Pt has received tramadol in the past, 06/06/21) codeine (Unverified Adverse Reaction, Mild, SICK, 08/23/15) promethazine HCl (Unverified Adverse Reaction, Mild, LOSS OF MEMORY, 04/12/11) hydrocodone (Verified Adverse Reaction, Unknown, 12/08/15) low blood pressure Uncoded Allergies: narcotics (Adverse Reaction, Unknown, 12/08/15) Patient Home Medication List Home Medication List Reviewed: Yes Acetaminophen (Tylenol 8 Hour) 650 Mg Tablet.er, 650 MG PO Q4H PRN for PAIN-MILD (1-4), (Reported) Entered as Reported by: SOFÍA CHICAS on 07/04/21 09 Amoxicillin/Potassium Clav (Augmentin 500-125 Tablet) 1 Each Tablet, 1 EACH PO BID Prescribed by: NAPOLEON SNEED on 07/12/211839 Apixaban (Eliquis) 2.5 Mg Tablet, 2.5 MG PO BID Prescribed by: NAPOLEON SNEED on 07/12/211839 Bethanechol Chloride (Bethanechol Chloride) 50 Mg Tablet, 50 MG PO 0600,1800, (Reported) Entered as Reported by: JULITO HAJI on 06/05/21 0831 Carbidopa/Levodopa (Carbidopa-Levo ER 50-200 Tab) 1 Each Tablet.er, 1 EACH PO 0600,1800, (Reported) Entered as Reported by: JULITO HAJI on 06/05/21 0835 Carboxymethylcellulose Sodium (Refresh Contacts) 12 Ml Drops, 1 DROP OU DAILY, (Reported) Entered as Reported by: SOFÍA CHICAS on 07/04/21 09 Cholecalciferol (Vitamin D3) (Vitamin D3) 125 Mcg Tablet, 125 MCG PO DAILY, (Reported) Entered as Reported by: NICK PEOPLES on 04/06/20 0951 Divalproex Sodium (Divalproex Sodium) 250 Mg Tablet.dr, 250 MG PO 0600,1800, (Reported) Entered as Reported by: KIKA SEWELL on 03/03/18 1556 Ferrous Sulfate (Ferrous Sulfate) 325 Mg Tablet, 325 MG PO DAILY, (Reported) Entered as Reported by: SOFÍA CHICAS on 07/04/21 09 Furosemide (Furosemide) 40 Mg Tablet, 40 MG PO DAILY Prescribed by: NAPOLEON SNEED on 07/12/21 184 Ondansetron HCl (Ondansetron HCl) 4 Mg Tablet, 4 MG PO Q4H PRN for NAUSEA/VOMITING-1ST LINE, (Reported) Entered as Reported by: SOFÍA CHICAS on 07/04/21 0941 Pantoprazole Sodium (Pantoprazole Sodium) 40 Mg Tablet.dr, 40 MG PO 0600,1800, (Reported) Entered as Reported by: KIKA SEWELL on 03/03/18 1556 Potassium Chloride (Klor-Con M20) 20 Meq Tab.er.prt, 40 MEQ PO DAILY@0600 Prescribed by: NAPOLEON SNEED on 07/12/21 1840 Sennosides/Docusate Sodium (Senna S Tablet) 1 Each Tablet, 1 EACH PO 0600,1800, (Reported) Entered as Reported by: SOFÍA CHICAS on 07/04/21 0941 Sertraline HCl (Sertraline HCl) 25 Mg Tablet, 25 MG PO 1800, (Reported) Entered as Reported by: KIKA SEWELL on 03/03/18 1611 Tamsulosin HCl (Flomax) 0.4 Mg Cap, 0.4 MG PO 1800, (Reported) Entered as Reported by: NICK PEOPLES on 04/06/20 0951 Review of Systems Constitutional: see HPI EENTM: no symptoms reported Respiratory: see HPI Cardiovascular: see HPI Gastrointestinal: no symptoms reported Genitourinary: no symptoms reported Musculoskeletal: no symptoms reported Skin: no symptoms reported Psychiatric/Neurological: See HPI Past Ngfewzw-Uwgmna-Curhub Hx Patient Social History Tobacco Use?: No Smoking Status: Unknown if Ever Smoked Substance use?: No Alcohol Use?: No Pt feels they are or have been: Unable to obtain Immunizations Up To Date Tetanus Booster (TDap): Unknown First/Initial COVID19 Vaccinat: 2020 Second COVID19 Vaccination Steven: 2020 Third COVID19 Vaccination Date: 2020 COVID19 Vaccine Ophthalmic Photographer: unk Seasonal Allergies Seasonal Allergies: No Past Medical History Surgery/Hospitalization HX: N/A Surgeries: Yes Abdominal, Amputation, Eye Surgery, Joint Replacement, Orthopedic, Pacemaker Respiratory: Yes Asthma Currently Using CPAP: No Currently Using BIPAP: No Cardiac: Yes (PACEMAKER; ATRIAL CLIP PROCEDURE) Atrial Fibrillation (Paced and anticoagulated), Hypertension Neurological: Yes (CVA WITH LEFT SIDE WEAKNESS, DYSPHAGIA, AND POOR COORDINATION) Parkinson's Disease, Stroke (Hemorrhagic, persistent left-sided weakness) Reproductive Disorders: No Sexually Transmitted Disease: No HIV/AIDS: No Genitourinary: Yes Benign Prostatic Hyperpl, Prostate Problems, Kidney Stones Gastrointestinal: Yes (LACTOSE INTOLERANT; HIATAL AND UMBILICAL HERNIA REPAIRS) Abdominal Hernia, Chronic Constipation, Hiatal Hernia, Ulcer Musculoskeletal: Yes Degenerate Disk Disease, Arthritis, Chronic Back Pain, Fractures Endocrine: No HEENT: Yes (DYSPHAGIA FROM CVA; CATARACTS/LENS IMPLANTS) Cataract Hearing Impairment: Denies Cancer: No 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) Depression Integumentary: Yes (RASH IN SUMMER AT TIMES) Pruritis Blood Disorders: No Adverse Reaction/Blood Tranf: No Family Medical History Cancer G8 BROTHER G8 BROTHER G8 SISTER Cancer of colon G8 BROTHER Cataract 19 FATHER Congestive heart failure 19 FATHER Family history: Allergy DAUGHTER Family history: Alzheimer's disease 19 FATHER Family history: Breast disease G8 SISTER No Family History of: Abdominal aortic aneurysm [place]'s disease Alcoholism Aphasia Chest pain Congenital heart disease Cystic fibrosis Dementia Dysphagia Family history: Arthritis Family history: Asthma Family history: Cardiovascular disease Family history: Coronary thrombosis Family history: Diabetes mellitus Family history: Gastrointestinal disease Family history: Glaucoma Family history: Hypertension Family history: Osteoporosis Family history: Thyroid disorder Headache Hearing loss Heart disease Hereditary disease History of - anemia History of - disorder History of - respiratory disease History of drug abuse Human immunodeficiency virus (HIV) seropositivity Hypercholesterolemia Infertile Kidney disease Malignant neoplasm of lung Myocardial infarction Parkinson's disease Prostate cancer Psychotic disorder Seizure disorder Stroke Tuberculosis Visual impairment No Pertinent Family Hx Physical Exam Vital Signs Vital Signs - First Documented 07/28/21 09:37 Temp 34.2 Pulse 95 Resp 24 B/P (MAP) 93/73 (80) Pulse Ox 97 O2 Delivery Room Air O2 Flow Rate 10.00 Capillary Refill : Less Than 3 Seconds Height, Weight, BMI Height: 5'4.00" Weight: 166lbs. 3.0oz. 70.034138pc; 31.00 BMI Method:Stated General Appearance: No Apparent Distress, WD/WN, Thin HEENT: PERRL/EOMI, Normal ENT Inspection, Other (Mucous membranes pasty) Neck: Normal Inspection; No JVD Cardiovascular: Regular Rate, Rhythm, No Edema, No Murmur, Other (Paced rhythm on monitor) Respiratory: Lungs Clear, Normal Breath Sounds, No Accessory Muscle Use, No Respiratory Distress, Other (Slight tachypnea) Gastrointestinal: Normal Bowel Sounds, Non Tender, Soft Extremities: Normal Inspection, Non Tender, No Pedal Edema Neurologic/Psychiatric: Alert, Other (Able to follow instructions and moves both feet and box liner with the right hand. Minimal movement of the left hand which is chronic. Answer some questions with head nod. Able to state his first name.) Cranial Nerves: Normal Hearing, PERRL Skin: Normal Color, Warm/Dry Procedures/Interventions Date of ETT Placement: Jul 03, 2021 Time of ETT Placement: 1400 Progress/Results/Core Measures Results/Orders Lab Results Laboratory Tests Test 07/28/21 09:48 07/28/21 10:50 07/28/21 11:00 07/28/21 11:10 Range/Units White Blood Count 15.4 H 4.3-11.0 10^3/uL Red Blood Count 5.30 4.30-5.52 10^6/uL Hemoglobin 18.8 H 13.3-17.7 g/dL Hematocrit 59 H 40-54 % Mean Corpuscular Volume 112 H 80-99 fL Mean Corpuscular Hemoglobin 36 H 25-34 pg Mean Corpuscular Hemoglobin Concent 32 32-36 g/dL Red Cell Distribution Width 16.4 H 10.0-14.5 % Platelet Count 194 130-400 10^3/uL Mean Platelet Volume 11.4 9.0-12.2 fL Immature Granulocyte % (Auto) 1 % Neutrophils (%) (Auto) 77 H 42-75 % Lymphocytes (%) (Auto) 8 L 12-44 % Monocytes (%) (Auto) 13 H 0-12 % Eosinophils (%) (Auto) 1 0-10 % Basophils (%) (Auto) 0 0-10 % Neutrophils # (Auto) 11.8 H 1.8-7.8 10^3/uL Lymphocytes # (Auto) 1.3 1.0-4.0 10^3/uL Monocytes # (Auto) 2.0 H 0.0-1.0 10^3/uL Eosinophils # (Auto) 0.1 0.0-0.3 10^3/uL Basophils # (Auto) 0.1 0.0-0.1 10^3/uL Immature Granulocyte # (Auto) 0.1 0.0-0.1 10^3/uL Neutrophils % (Manual) 74 % Lymphocytes % (Manual) 2 % Monocytes % (Manual) 12 % Eosinophils % (Manual) 0 % Basophils % (Manual) 0 % Band Neutrophils 4 % Nucleated Red Blood Cells 1 Reactive Lymphocytes 8 % Blood Morphology Comment NORMAL Prothrombin Time 16.2 H 12.2-14.7 SEC INR Comment 1.3 0.8-1.4 Activated Partial Thromboplast Time 30 24-35 SEC Troponin I 0.149 H <0.028 NG/ML C-Reactive Protein High Sensitivity 0.89 H 0.00-0.50 MG/DL B-Type Natriuretic Peptide 100.3 H <100.0 PG/ML Procalcitonin 0.25 H <0.10 NG/ML Valproic Acid (Depakene) Level 54.4 50.0-100.0 UG/ML Influenza Type A (RT-PCR) Not Detected Not Detecte Influenza Type B (RT-PCR) Not Detected Not Detecte SARS-CoV-2 RNA (RT-PCR) Not Detected Not Detecte Sodium Level 160 *H 135-145 MMOL/L Potassium Level 4.4 3.6-5.0 MMOL/L Chloride Level 116 H 98-107 MMOL/L Carbon Dioxide Level 25 21-32 MMOL/L Anion Gap 19 H 5-14 MMOL/L Blood Urea Nitrogen 62 H 7-18 MG/DL Creatinine 2.93 H 0.60-1.30 MG/DL Estimat Glomerular Filtration Rate 21 BUN/Creatinine Ratio 21 Glucose Level 138 H 70-105 MG/DL Calcium Level 10.5 H 8.5-10.1 MG/DL Corrected Calcium 10.8 H 8.5-10.1 MG/DL Magnesium Level 2.4 1.6-2.4 MG/DL Total Bilirubin 1.2 H 0.1-1.0 MG/DL Aspartate Amino Transf (AST/SGOT) 11 5-34 U/L Alanine Aminotransferase (ALT/SGPT) 6 0-55 U/L Alkaline Phosphatase 106 40-136 U/L Myoglobin 257.0 H 10.0-92.0 NG/ML Total Protein 7.0 6.4-8.2 GM/DL Albumin 3.6 3.2-4.5 GM/DL Blood Gas Puncture Site RT RAD Blood Gas Patient Temperature 96.4 Arterial Blood pH 7.42 7.37-7.43 Arterial Blood Partial Pressure CO2 37 35-45 MMHG Arterial Blood Partial Pressure O2 72 L 79-93 MMHG Arterial Blood HCO3 24 23-27 MMOL/L Arterial Blood Total CO2 24.9 21.0-31.0 MMOL/L Arterial Blood Oxygen Saturation 91 L 94-100 % Arterial Blood Base Excess -0.5 -2.5-2.5 MMOL/L Bharath Test NA Blood Gas Ventilator Setting NO Blood Gas Inspired Oxygen ROOM AIR Urine Color DARK YELLOW Urine Clarity SL CLOUDY Urine pH 5.0 5-9 Urine Specific [place] 1.025 H 1.016-1.022 Urine Protein TRACE H NEGATIVE Urine Glucose (UA) NEGATIVE NEGATIVE Urine Ketones 1+ H NEGATIVE Urine Nitrite NEGATIVE NEGATIVE Urine Bilirubin 1+ H NEGATIVE Urine Urobilinogen 0.2 < = 1.0 MG/DL Urine Leukocyte Esterase NEGATIVE NEGATIVE Urine RBC (Auto) NEGATIVE NEGATIVE Urine RBC NONE /HPF Urine WBC NONE /HPF Urine Squamous Epithelial Cells RARE /HPF Urine Crystals NONE /LPF Urine Bacteria NEGATIVE /HPF Urine Casts NONE /LPF Urine Mucus NEGATIVE /LPF Urine Culture Indicated NO My Orders Orders - MEL LYNCH MD Cbc With Automated Diff (07/28/21 09:54) Chest 1 View, Ap/Pa Only (07/28/21 09:54) Ekg Tracing (07/28/21 09:54) Protime With Inr (07/28/21 09:54) Partial Thromboplastin Time (07/28/21 09:54) O2 (07/28/21 09:54) Monitor-Rhythm Ecg Trace Only (07/28/21 09:54) Lipid Panel (07/29/21 06:00) Ed Iv/Invasive Line Start (07/28/21 09:54) Troponin I Callahan (07/28/21 09:54) Procalcitonin (Pct) (07/28/21 09:54) Hs C Reactive Protein (07/28/21 09:54) Influenza A And B By Pcr (07/28/21 09:54) Covid 19 Inhouse Test (07/28/21 09:54) Ns Iv 1000 Ml (Sodium Chloride 0.9%) (07/28/21 10:00) Bnp Callahan (07/28/21 09:59) Valproic Acid (07/28/21 09:59) Ct Head Wo (07/28/21 09:59) Manual Differential (07/28/21 09:48) Comprehensive Metabolic Panel (07/28/21 10:55) Magnesium (07/28/21 10:55) Myoglobin Serum (07/28/21 10:55) Arterial Blood Gas (07/28/21 11:00) Mclaughlin Cath (07/28/21 11:16) Ns Iv 1000 Ml (Sodium Chloride 0.9%) (07/28/21 11:35) Ua Culture If Indicated (07/28/21 12:03) Vital Signs/I&O 07/28/21 07/28/21 09:37 09:47 Temp 34.2 Pulse 95 Resp 24 B/P (MAP) 93/73 (80) Pulse Ox 97 O2 Delivery Room Air Room Air O2 Flow Rate 10.00 Blood Pressure Mean: 80 Progress Progress Note : Time: 12:55 Progress Note Patient was seen and evaluated upon arrival. Oxygen saturation was in the mid 90s on room air. He was not in respiratory distress. Labs revealed severe dehydration with severe hypernatremia. Rehydration was started with a 1 L normal saline bolus. A second liter was started at a slower rate. Blood pressures remained low normotensive but stable. Patient's mental status did improve. He was not conversational but was more alert and more readily answered questions verbally. Based on my conversation with his daughter, he is to remain a full CODE STATUS at this time. His mental status is not good enough for me to have a CODE STATUS conversation with him personally. No definite source of bacterial infection was identified. Leukocytosis was likely due to dehydration. I discussed empiric antibiotics with Dr. SNEED. We have decided to refrain from antibiotic use at this time since there is no clear indication of bacterial infection. Case was reviewed with Dr. Baca as well. He was consulted for the cardiology service. He requested continuation of Eliquis at 2.5 mg. I have contacted the roundhouse firer/fireman regarding obtaining a swallow evaluation. He currently uses honey thickened liquids which can be used as a diet order if speech pathology is no longer available (it is 1300 on a Saturday). Initial ECG Impression Date: Jul 28, 2021 Initial ECG Impression Time: 09:47 Initial ECG Rate: 100 Comment Atrial sensed ventricular paced rhythm. No overt acute changes. Similar to prior. Diagnostic Imaging Diagonstic Imaging: Xray Plain Films/CT/US/NM/MRI: chest Comments Chest x-ray viewed by me and report reviewed. See report below: NAME: SALUD ADKINS [facility] REC#: [id number] PT STATUS: REG ER : 1935 PHYSICIAN: MEL LYNCH MD ADMIT DATE: 07/28/21/ER Draft Date of Exam:07/28/21 CHEST 1 VIEW, AP/PA ONLY Indication: Chest pain. Unresponsive patient. COMPARISON: 07/12/2021 FINDINGS: Single frontal radiograph view the chest was obtained and demonstrates persistent low inspiratory volumes with asymmetric elevation left hemidiaphragm and small left effusion. Patchy airspace opacities are also noted in the right base. Otherwise, aeration is improved compared to prior exam. Cardiac silhouette is partially obscured, but appears enlarged. Pulmonary vasculature is within normal limits. Left-sided 2-lead pacemaker is noted. IMPRESSION: 1. Low lung volumes with small left effusion and probable patchy right basilar atelectasis. 2. Cardiomegaly. Dictated on workstation # [id number] Dict: 07/28/21 1108 Trans: 07/28/21 1114 [facility] [id number] Interpreted by: NAY DUPREE MD Diagonstic Imaging: CT Plain Films/CT/US/NM/MRI: head Comments CT head viewed by me and report reviewed. See report below: NAME: SALUD ADKINS [facility] REC#: [id number] PT STATUS: REG ER : 1935 PHYSICIAN: MEL LYNCH MD ADMIT DATE: 07/28/21/ER Signed Date of Exam:07/28/21 CT HEAD WO EXAMINATION: CT head without contrast. TECHNIQUE: Multiple contiguous axial images were obtained through the brain without the use of intravenous contrast. All CT scans use one or more of the following dose optimizing techniques: automated exposure control, MA and/or KvP adjustment based on patient size and exam type or iterative reconstruction. HISTORY: Altered mental status. Lethargy. COMPARISON: 12/08/2015. FINDINGS: No large acute territorial ischemia, mass, or hemorrhage. No midline shift or mass effect. Old infarct is seen in the right frontal lobe. Decreased attenuation is seen in the periventricular and subcortical white matter. The ventricles and cortical sulci are prominent. The basilar cisterns are patent and unremarkable. The orbits are normal. Paranasal sinuses are normal. Mastoid air cells are clear. No soft tissue abnormality is seen. No osseous lesions or fractures are seen. IMPRESSION: 1. No large acute territorial ischemia, mass, or hemorrhage. 2. Chronic microvascular disease. Old infarct is seen in the right frontal lobe, similar to the prior exam. 3. Generalized parenchymal volume loss. Dictated by: Dictated on workstation # [id number] Dict: 07/28/21 1210 Trans: 07/28/21 1217 [id number] Interpreted by: MELONIE VIVAR DO Electronically signed by: MELONIE VIVAR DO 07/28/211216 Departure Communication (Admissions) Time/Spoke to Admitting Phy: 12:30 Dr. Sneed Time/Spoke to Consulting Phy: 12:50 Dr. Baca Impression Primary Impression: LUZ MARINA (acute kidney injury) Additional Impressions: Dehydration Syncope Qualified Codes: R55 - Syncope and collapse Hypernatremia Elevated troponin AMS (altered mental status) Qualified Codes: R41.82 - Altered mental status, unspecified Disposition: ADMITTED INPATIENT Condition: Improved Admissions Decision to Admit Reason: Admit from ER (General) Decision to Admit/Date: Jul 28, 2021 Time/Decision to Admit Time: 09:40 Departure-Patient Inst. Referrals: NAPOLEON SNEED DO (PCP/Family) Primary Care Physician MEL LYNCH MD Jul 28, 2021 12:17
[2021-07-28 12:28] LABS: BACTERIA,URINE NEGATIVE /HPF; BILIRUBIN,URINE 1+ (NEGATIVE); SQUAMOUS EPITHELIAL CELL,UR RARE /HPF
--- NOTE | 2021-07-28 13:08 | Consultation-Cardiology ---
HPI-Cardiology Cardiology Consultation: Date of Consultation 07/28/21 Time Seen by a Provider: 13:50 Date of Admission 07-28-21 Attending Physician Admitting Physician Napoleon Sneed DO Consulting Physician Jonna Baca MD Primary Branch Account Executive: Dr. Quiñonez HPI: Chief Complaint: Syncope Mr. Adkins is an 85 yr old male admitted to 414 from the ED. His daughter, Bette, is at the bedside. He resides in a LTC facility. He was up to the BR and when the staff assisted him off the stool he passed out. Per ED records EMS was called. He was found to be hypotensive and hypoxic by EMS. His daughter reports he has had several admissions for syncope and dehydration. She reports he has dysphagia and is only allowed honey consistency liquids. She reports he has poor intake d/t this condition. She reports he feel in May fracturing his hip. 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 He does not report any c/o CP, SOB or palpitations. Review of Systems-Cardiology Review of Systems Constitutional: No chills, No fever; lightheadedness, malaise, weight loss Eyes: No vision change Ears/Nose/Throat: No epistaxis, No recent hearing loss Respiratory: As described under HPI Cardiovascular: As described under HPI Gastrointestinal: As described under HPI; No constipation, No diarrhea, No nausea, No vomiting Genitourinary: No dysuria, No hematuria Musculoskeletal: no symptoms reported Skin: No rash on exposed areas, No ulcerations on exposed areas Psychiatric/Neurological: As described under HPI Hematologic: No bleeding abnormalities MCK-Jhslvg-Axpsaw Hx Patient Social History Smoking Status: Unknown if Ever Smoked Former smoker/When Quit: Feb 14, 1986 Have you traveled recently?: Unable to obtain Alcohol Use?: No Pt feels they are or have been: Unable to obtain Immunizations Up To Date Tetanus Booster (TDap): Unknown Date of Pneumonia Vaccine: May 17, 2019 Date of Influenza Vaccine: May 12, 2019 Past Medical History PMH As described under Assessment. Family Medical History Family Medical History: Documented family medical history of Father having CHF. Family History: 19 FATHER Cataract Congestive heart failure Family history: Alzheimer's disease G8 BROTHER Cancer Cancer of colon G8 BROTHER Cancer G8 SISTER Cancer Family history: Breast disease DAUGHTER Family history: Allergy Allergies and Home Medications Allergies Coded Allergies: Cobamamide (Unverified Allergy, Unknown, MEMORY LOSS, 01/18/14) cyanocobalamin (Unverified Allergy, Unknown, MEMORY LOSS, 01/18/14) fentanyl (Verified Allergy, Unknown, 12/08/15) lactose (Verified Allergy, Unknown, 03/03/18) morphine (Verified Allergy, Unknown, Pt has received tramadol in the past, 06/06/21) codeine (Unverified Adverse Reaction, Mild, SICK, 08/23/15) promethazine HCl (Unverified Adverse Reaction, Mild, LOSS OF MEMORY, 04/12/11) hydrocodone (Verified Adverse Reaction, Unknown, 12/08/15) low blood pressure Uncoded Allergies: narcotics (Adverse Reaction, Unknown, 12/08/15) Patient Home Medication List Acetaminophen (Acetaminophen) 325 Mg Tablet, 650 MG PO Q4H PRN for PAIN-MILD (1- 4), (Reported) Entered as Reported by: SOFÍA CHICAS on 07/28/21 1501 Last Action: Reviewed Apixaban (Eliquis) 2.5 Mg Tablet, 2.5 MG PO BID, (Reported) Entered as Reported by: SOFÍA CHICAS on 07/28/21 1501 Last Action: Reviewed Bethanechol Chloride (Bethanechol Chloride) 50 Mg Tablet, 50 MG PO 0600,1800, (Reported) Entered as Reported by: JULITO HAJI on 06/05/21 0831 Last Action: Reviewed Carbidopa/Levodopa (Carbidopa-Levo ER 50-200 Tab) 1 Each Tablet.er, 1 EACH PO 0600,1800, (Reported) Entered as Reported by: JULITO HAJI on 06/05/21 0835 Last Action: Reviewed Carboxymethylcellulose Sodium (Refresh Contacts) 12 Ml Drops, 1 DROP OU DAILY, (Reported) Entered as Reported by: SOFÍA CHICAS on 07/04/21 0941 Last Action: Reviewed Cholecalciferol (Vitamin D3) (Vitamin D3) 125 Mcg Tablet, 125 MCG PO DAILY, (Reported) Entered as Reported by: NICK PEOPLES on 04/06/20 0951 Last Action: Reviewed Divalproex Sodium (Divalproex Sodium) 250 Mg Tablet.dr, 250 MG PO 0600,1800, (Reported) Entered as Reported by: KIKA SEWELL on 03/03/181555 Last Action: Reviewed Ferrous Sulfate (Ferrous Sulfate) 325 Mg Tablet, 325 MG PO DAILY, (Reported) Entered as Reported by: SOFÍA CHICAS on 07/04/21940 Last Action: Reviewed Furosemide (Furosemide) 40 Mg Tablet, 40 MG PO DAILY, (Reported) Entered as Reported by: SOFÍA CHICAS on 07/28/211500 Last Action: Reviewed Lactase (Lactaid) 3,000 Unit Tablet, 3,000 UNIT PO UD PRN for WHEN HAVING DAIRY PRODUCTS, (Reported) Entered as Reported by: OSFÍA CHICAS on 07/28/211500 Last Action: Reviewed Metoclopramide HCl (Metoclopramide HCl) 5 Mg Tablet, 5 MG PO TIDAC, (Reported) Entered as Reported by: SOFÍA CHICAS on 07/28/211500 Last Action: Reviewed Metoprolol Succinate (Metoprolol Succinate) 25 Mg Tab.er.24h, 25 MG PO 2100, (Reported) Entered as Reported by: SOFÍA CHICAS on 07/28/211507 Last Action: Reviewed Ondansetron (Ondansetron Odt) 4 Mg Tab.rapdis, 4 MG PO Q4H PRN for NAUSEA/VOMITING-1ST LINE, (Reported) Entered as Reported by: SOFÍA CHICAS on 07/28/211500 Last Action: Reviewed Pantoprazole Sodium (Pantoprazole Sodium) 40 Mg Tablet.dr, 40 MG PO 0600,1800, (Reported) Entered as Reported by: KIKA SEWELL on 03/03/181555 Last Action: Reviewed Potassium Chloride (Potassium Chloride) 20 Meq Tablet.er, 40 MEQ PO DAILY, (Reported) Entered as Reported by: SOFÍA CHICAS on 07/28/211500 Last Action: Reviewed Sennosides/Docusate Sodium (Senna S Tablet) 1 Each Tablet, 1 EACH PO 0600,1800, (Reported) Entered as Reported by: SOFÍA CHICAS on 07/04/21940 Last Action: Reviewed Sertraline HCl (Sertraline HCl) 25 Mg Tablet, 25 MG PO 1800, (Reported) Entered as Reported by: KIKA SEWELL on 03/03/18 161 Last Action: Reviewed Tamsulosin HCl (Flomax) 0.4 Mg Cap, 0.4 MG PO 1800, (Reported) Entered as Reported by: NICK PEOPLES on 04/06/20 0951 Last Action: Reviewed Discontinued Medications Acetaminophen (Tylenol 8 Hour) 650 Mg Tablet.er, 650 MG PO Q4H PRN for PAIN-MILD (1-4), (Reported) Discontinued Reason: Prescription changed Entered as Reported by: SOFÍA CHICAS on 07/04/21940 Amoxicillin/Potassium Clav (Augmentin 500-125 Tablet) 1 Each Tablet, 1 EACH PO BID Discontinued Reason: No Longer Taking Prescribed by: NAPOLEON SNEED on 07/12/211839 Last Action: Discontinued Apixaban (Eliquis) 2.5 Mg Tablet, 2.5 MG PO BID Discontinued Reason: Duplicate Order Prescribed by: NAPOLEON SNEED on 07/12/211839 Last Action: Discontinued Furosemide (Furosemide) 40 Mg Tablet, 40 MG PO DAILY Discontinued Reason: No Longer Taking Prescribed by: NAPOLEON SNEED on 07/12/211839 Last Action: Discontinued Ondansetron HCl (Ondansetron HCl) 4 Mg Tablet, 4 MG PO Q4H PRN for NAUSEA/VOMITING-1ST LINE, (Reported) Discontinued Reason: Duplicate Order Entered as Reported by: SOFÍA CHICAS on 07/04/21940 Last Action: Discontinued Potassium Chloride (Klor-Con M20) 20 Meq Tab.er.prt, 40 MEQ PO DAILY@0600 Discontinued Reason: Duplicate Order Prescribed by: NAPOLEON SNEED on 07/12/211839 Last Action: Discontinued Physical Exam-Cardiology Physical Exam Vital Signs/I&O 07/31/21 00:00 Intake Total 0 ml Output Total 515 ml Balance -515 ml Capillary Refill : Less Than 3 Seconds Constitutional: AAO x 3, other (thin, frail) HEENT: PERRL, hard of hearing, oral hygience is good Neck: No carotid bruit; carotid pulses are 2 + bilaterally Respiratory: No accessory muscle use, No respiratory distress; chest expansion is symmetric, chest is bilaterally symmetric, other (coarse breath sounds) Cardiovascular: regular rate-rhythm (V-paced on tele); No JVD; S1 and S2 Gastrointestinal: No tender; soft, audible bowel sounds Extremities: no lower extremity edema bilateral Neurologic/Psychiatric: other (LLE and LUE weakness) Skin: No rash on exposed areas, No ulcerations on exposed areas Data Review Labs Radiology NAME: SALUD ADKINS [facility] REC#: [id number] PT STATUS: REG ER : 1935 PHYSICIAN: MEL LYNCH MD ADMIT DATE: 07/28/21/ER Draft Date of Exam:07/28/21 CHEST 1 VIEW, AP/PA ONLY Indication: Chest pain. Unresponsive patient. COMPARISON: 07/12/2021 FINDINGS: Single frontal radiograph view the chest was obtained and demonstrates persistent low inspiratory volumes with asymmetric elevation left hemidiaphragm and small left effusion. Patchy airspace opacities are also noted in the right base. Otherwise, aeration is improved compared to prior exam. Cardiac silhouette is partially obscured, but appears enlarged. Pulmonary vasculature is within normal limits. Left-sided 2-lead pacemaker is noted. IMPRESSION: 1. Low lung volumes with small left effusion and probable patchy right basilar atelectasis. 2. Cardiomegaly. Dictated on workstation # [id number] Dict: 07/28/21 1108 Trans: 07/28/21 1114 [facility] [id number] Interpreted by: NAY DUPREE MD Electronically signed by: NAME: SALUD ADKINS [facility] REC#: [id number] PT STATUS: REG ER : 1935 PHYSICIAN: MEL LYNCH MD ADMIT DATE: 07/28/21/ER Signed Date of Exam:07/28/21 CT HEAD WO EXAMINATION: CT head without contrast. TECHNIQUE: Multiple contiguous axial images were obtained through the brain without the use of intravenous contrast. All CT scans use one or more of the following dose optimizing techniques: automated exposure control, MA and/or KvP adjustment based on patient size and exam type or iterative reconstruction. HISTORY: Altered mental status. Lethargy. COMPARISON: 12/08/2015. FINDINGS: No large acute territorial ischemia, mass, or hemorrhage. No midline shift or mass effect. Old infarct is seen in the right frontal lobe. Decreased attenuation is seen in the periventricular and subcortical white matter. The ventricles and cortical sulci are prominent. The basilar cisterns are patent and unremarkable. The orbits are normal. Paranasal sinuses are normal. Mastoid air cells are clear. No soft tissue abnormality is seen. No osseous lesions or fractures are seen. IMPRESSION: 1. No large acute territorial ischemia, mass, or hemorrhage. 2. Chronic microvascular disease. Old infarct is seen in the right frontal lobe, similar to the prior exam. 3. Generalized parenchymal volume loss. Dictated by: Dictated on workstation # [id number] Dict: 07/28/21 1210 Trans: 07/28/21 121 AS6 [id number] Interpreted by: MELONIE VIVAR DO Electronically signed by: MELONIE VIVAR DO 07/28/211216 ECG Impression ECG Comment V-paced on tele A/P-Cardiology Assessment/Admission Diagnosis Syncope - likely d/t hypotension secondary to vol depletion LUZ MARINA likely secondary to hypotension and vol depletion Mild troponin elevation likely secondary to LUZ MARINA, hypotension and transient hypoxia Echocardiogram of 07-04-[address] Quiñonez showed LVEF 55-60% Chronic persistent atrial fibrillation with sinus node dysfunction - OAC with Eliquis 2.5mg BID - H/O left atrial appendage clip done at in the past per Dr. 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 Quiñonez Hyperlipidemia H/O frequent falls - right hip fracture in May 2021 Discussion and Recomendations Syncope likely d/t hypotension d/t vol depletion - tx with IVF Monitor lab closely Chronic dysphagia - mangement per medical services Mild troponin elevation likely d/t hypotension, LUZ MARINA and transient hypoxia Hold anti-hypertensives Continue OAC with Eliquis - low dose d/t advanced age Further recs will be based on his hospital course We would like to thank medical services for this consult SOFIA RITTER Jul 28, 2021 13:08
--- NOTE | 2021-07-28 13:42 | Speech Therapy Progress Note ---
Therapy Progress Note Patient completed an MBS on 07/12/2021 with aspiration and penetration noted. Since that time he has been on honey consistency liquids and Dysphagia 1 diet as recommended at that time. However, the patient is in the ER this date with dehydration and has had aspiration pneumonia. The patient is not considered a safe candidate for evaluation given recent MBS results and continued medical related diagnosis. The patient is a very high risk for aspiration/penetration wi th all oral intake. Patient is recommended for an alternative means of hydration/nutrition intake at this time. PHILLIP RG Jul 28, 2021 13:42
[2021-07-28] MEDS ORDERED: ONDANSETRON 4 MG/2 ML (SDV) Z0FRAN IV PRN (14:15)
[2021-07-28] MEDS ORDERED: CATHETER FLUSH 10 ML SYR IV PRN (14:15)
[2021-07-28] MEDS ORDERED: [UNRECOGNIZED DRUG - CODE] PO (15:01)
[2021-07-28] MEDS ORDERED: METO5TAB2 PO (15:01)
[2021-07-28] MEDS ORDERED: ACET325T49 PO (15:01)
[2021-07-28] MEDS ORDERED: APIX2.5T PO (15:01)
[2021-07-28] MEDS ORDERED: ONDA4TAB11 PO (15:01)
[2021-07-28] MEDS ORDERED: POTA-51 PO (15:01)
[2021-07-28] MEDS ORDERED: FURO40TA4 PO (15:01)
[2021-07-28] MEDS ORDERED: MTP25TSR PO (15:08)
[2021-07-28 16:00] VITALS: BP 122/67
--- NOTE | 2021-07-28 16:18 | Consultation-Cardiology ---
HPI-Cardiology Cardiology Consultation: Date of Consultation 07/28/21 Time Seen by a Provider: 16:05 Date of Admission Attending Physician Napoleon Sneed DO Admitting Physician Napoleon Sneed DO Consulting Physician MARK SHER MD, MA, FACP, FACC, FSCAI, CCDS Physician requesting Card consult: Dr Sneed HPI: Chief Complaint: Reason for Cardiology consult: Syncope HPI Mr. Lane is an 85 yr old male admitted to 414 from the ED. His daughter, Bette, is at the bedside. He resides in a LTC facility. He was up to the and when the staff assisted him off the stool he passed out. Per ED records EMS was called. He was found to be hypotensive and hypoxic by EMS. His daughter reports he has had several admissions for syncope and dehydration. She reports he has dysphagia and is only allowed honey consistency liquids. She reports he has poor intake d/t this condition. She reports he feel in May fracturing his hip. 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 He does not report any c/o CP, SOB or palpitations. Review of Systems-Cardiology Review of Systems Constitutional: No chills, No fever; lightheadedness, malaise, weight loss Eyes: No vision change Ears/Nose/Throat: No epistaxis, No recent hearing loss Respiratory: As described under HPI Cardiovascular: As described under HPI Gastrointestinal: As described under HPI; No constipation, No diarrhea, No nausea, No vomiting Genitourinary: No dysuria, No hematuria Musculoskeletal: no symptoms reported Skin: No rash on exposed areas, No ulcerations on exposed areas Psychiatric/Neurological: As described under HPI Hematologic: No bleeding abnormalities ZGE-Keqezf-Vwecyc Hx Patient Social History Smoking Status: Former Smoker Former smoker/When Quit: Feb 14, 1986 Have you traveled recently?: No Alcohol Use?: Yes Pt feels they are or have been: No Immunizations Up To Date Tetanus Booster (TDap): Unknown Date of Pneumonia Vaccine: May 17, 2019 Date of Influenza Vaccine: Jul 14, 2021 Past Medical History PMH As described under Assessment. Family Medical History Family Medical History: Documented family medical history of Father having CHF. Family History: Cancer G8 BROTHER G8 BROTHER G8 SISTER Cancer of colon G8 BROTHER Cataract 19 FATHER Congestive heart failure 19 FATHER Family history: Allergy DAUGHTER Family history: Alzheimer's disease 19 FATHER Family history: Breast disease G8 SISTER No Family History of: Abdominal aortic aneurysm [place]'s disease Alcoholism Aphasia Chest pain Congenital heart disease Cystic fibrosis Dementia Dysphagia Family history: Arthritis Family history: Asthma Family history: Cardiovascular disease Family history: Coronary thrombosis Family history: Diabetes mellitus Family history: Gastrointestinal disease Family history: Glaucoma Family history: Hypertension Family history: Osteoporosis Family history: Thyroid disorder Headache Hearing loss Heart disease Hereditary disease History of - anemia History of - disorder History of - respiratory disease History of drug abuse Human immunodeficiency virus (HIV) seropositivity Hypercholesterolemia Infertile Kidney disease Malignant neoplasm of lung Myocardial infarction Parkinson's disease Prostate cancer Psychotic disorder Seizure disorder Stroke Tuberculosis Visual impairment Allergies and Home Medications Allergies Coded Allergies: Cobamamide (Unverified Allergy, Unknown, MEMORY LOSS, 01/18/14) cyanocobalamin (Unverified Allergy, Unknown, MEMORY LOSS, 01/18/14) fentanyl (Verified Allergy, Unknown, 12/08/15) lactose (Verified Allergy, Unknown, 03/03/18) morphine (Verified Allergy, Unknown, Pt has received tramadol in the past, 06/06/21) codeine (Unverified Adverse Reaction, Mild, SICK, 08/23/15) promethazine HCl (Unverified Adverse Reaction, Mild, LOSS OF MEMORY, 04/12/11) hydrocodone (Verified Adverse Reaction, Unknown, 12/08/15) low blood pressure Uncoded Allergies: narcotics (Adverse Reaction, Unknown, 12/08/15) Patient Home Medication List Home Medication List Reviewed: Yes Acetaminophen (Acetaminophen) 325 Mg Tablet, 650 MG PO Q4H PRN for PAIN-MILD (1- 4), (Reported) Entered as Reported by: SOFÍA CHICAS on 07/28/21 150 Last Action: Reviewed Apixaban (Eliquis) 2.5 Mg Tablet, 2.5 MG PO BID, (Reported) Entered as Reported by: SOFÍA CHICAS on 07/28/21 150 Last Action: Reviewed Bethanechol Chloride (Bethanechol Chloride) 50 Mg Tablet, 50 MG PO 0600,1800, (Reported) Entered as Reported by: JULITO HAJI on 06/05/21 0831 Last Action: Reviewed Carbidopa/Levodopa (Carbidopa-Levo ER 50-200 Tab) 1 Each Tablet.er, 1 EACH PO 0600,1800, (Reported) Entered as Reported by: JULITO HAJI on 06/05/21 0835 Last Action: Reviewed Carboxymethylcellulose Sodium (Refresh Contacts) 12 Ml Drops, 1 DROP OU DAILY, (Reported) Entered as Reported by: SOFÍA CHICAS on 07/04/21940 Last Action: Reviewed Cholecalciferol (Vitamin D3) (Vitamin D3) 125 Mcg Tablet, 125 MCG PO DAILY, (Reported) Entered as Reported by: NICK PEOPLES on 04/06/20 0951 Last Action: Reviewed Divalproex Sodium (Divalproex Sodium) 250 Mg Tablet.dr, 250 MG PO 0600,1800, (Reported) Entered as Reported by: KIKA SEWELL on 03/03/181555 Last Action: Reviewed Ferrous Sulfate (Ferrous Sulfate) 325 Mg Tablet, 325 MG PO DAILY, (Reported) Entered as Reported by: SOFÍA CHICAS on 07/04/21940 Last Action: Reviewed Furosemide (Furosemide) 40 Mg Tablet, 40 MG PO DAILY, (Reported) Entered as Reported by: SOFÍA CHICAS on 07/28/211500 Last Action: Reviewed Lactase (Lactaid) 3,000 Unit Tablet, 3,000 UNIT PO UD PRN for WHEN HAVING DAIRY PRODUCTS, (Reported) Entered as Reported by: SOFÍA CHICAS on 07/28/211500 Last Action: Reviewed Metoclopramide HCl (Metoclopramide HCl) 5 Mg Tablet, 5 MG PO TIDAC, (Reported) Entered as Reported by: SOFÍA CHICAS on 07/28/211500 Last Action: Reviewed Metoprolol Succinate (Metoprolol Succinate) 25 Mg Tab.er.24h, 25 MG PO 2100, (Reported) Entered as Reported by: SOFÍA CHICAS on 07/28/211507 Last Action: Reviewed Ondansetron (Ondansetron Odt) 4 Mg Tab.rapdis, 4 MG PO Q4H PRN for NAUSEA/VOMITING-1ST LINE, (Reported) Entered as Reported by: SOFÍA CHICAS on 07/28/211500 Last Action: Reviewed Pantoprazole Sodium (Pantoprazole Sodium) 40 Mg Tablet.dr, 40 MG PO 0600,1800, (Reported) Entered as Reported by: KIKA SEWELL on 7/23/18 1556 Last Action: Reviewed Potassium Chloride (Potassium Chloride) 20 Meq Tablet.er, 40 MEQ PO DAILY, (Reported) Entered as Reported by: SOFÍA CHICAS on 07/28/21 1501 Last Action: Reviewed Sennosides/Docusate Sodium (Senna S Tablet) 1 Each Tablet, 1 EACH PO 0600,1800, (Reported) Entered as Reported by: SOFÍA CHICAS on 07/04/21 09 Last Action: Reviewed Sertraline HCl (Sertraline HCl) 25 Mg Tablet, 25 MG PO 1800, (Reported) Entered as Reported by: KIKA SEWELL on 03/03/18 1611 Last Action: Reviewed Tamsulosin HCl (Flomax) 0.4 Mg Cap, 0.4 MG PO 1800, (Reported) Entered as Reported by: NICK PEOPLES on 04/06/20 0951 Last Action: Reviewed Discontinued Medications Acetaminophen (Tylenol 8 Hour) 650 Mg Tablet.er, 650 MG PO Q4H PRN for PAIN-MILD (1-4), (Reported) Discontinued Reason: Prescription changed Entered as Reported by: SOFÍA CHICAS on 07/04/21940 Amoxicillin/Potassium Clav (Augmentin 500-125 Tablet) 1 Each Tablet, 1 EACH PO BID Discontinued Reason: No Longer Taking Prescribed by: NAPOLEON SNEED on 07/12/211839 Last Action: Discontinued Apixaban (Eliquis) 2.5 Mg Tablet, 2.5 MG PO BID Discontinued Reason: Duplicate Order Prescribed by: NAPOLEON SNEED on 07/12/211839 Last Action: Discontinued Furosemide (Furosemide) 40 Mg Tablet, 40 MG PO DAILY Discontinued Reason: No Longer Taking Prescribed by: NAPOLEON SENED on 07/12/211839 Last Action: Discontinued Ondansetron HCl (Ondansetron HCl) 4 Mg Tablet, 4 MG PO Q4H PRN for NAUSEA/VOMITING-1ST LINE, (Reported) Discontinued Reason: Duplicate Order Entered as Reported by: SOFÍA CHICAS on 07/04/21940 Last Action: Discontinued Potassium Chloride (Klor-Con M20) 20 Meq Tab.er.prt, 40 MEQ PO DAILY@0600 Discontinued Reason: Duplicate Order Prescribed by: NAPOLEON SNEED on 12/1/21 1840 Last Action: Discontinued Physical Exam-Cardiology Physical Exam Vital Signs/I&O 07/28/21 07/28/21 07/28/21 09:37 09:47 14:13 Temp 34.2 Pulse 95 89 Resp 24 14 B/P (MAP) 93/73 (80) 100/65 Pulse Ox 97 98 O2 Delivery Room Air Room Air O2 Flow Rate 10.00 Capillary Refill : Less Than 3 Seconds Constitutional: AAO x 3, other (thin, frail) HEENT: PERRL, hard of hearing, oral hygience is good Neck: No carotid bruit; carotid pulses are 2 + bilaterally Respiratory: No accessory muscle use, No respiratory distress; chest expansion is symmetric, chest is bilaterally symmetric, other (coarse breath sounds) Cardiovascular: regular rate-rhythm (V-paced on tele); No JVD; S1 and S2 Gastrointestinal: No tender; soft, audible bowel sounds Extremities: no lower extremity edema bilateral Neurologic/Psychiatric: other (LLE and LUE weakness) Skin: No rash on exposed areas, No ulcerations on exposed areas Data Review Labs Laboratory Tests 07/28/21 09:48: White Blood Count 15.4H, Red Blood Count 5.30, Hemoglobin 18.8H, Hematocrit 59H, Mean Corpuscular Volume 112H, Mean Corpuscular Hemoglobin 36H, Mean Corpuscular Hemoglobin Concent 32, Red Cell Distribution Width 16.4H, Platelet Count 194, Mean Platelet Volume 11.4, Immature Granulocyte % (Auto) 1, Neutrophils (%) (Auto) 77H, Lymphocytes (%) (Auto) 8L, Monocytes (%) (Auto) 13H, Eosinophils (%) (Auto) 1, Basophils (%) (Auto) 0, Neutrophils # (Auto) 11.8H, Lymphocytes # (Auto) 1.3, Monocytes # (Auto) 2.0H, Eosinophils # (Auto) 0.1, Basophils # (Auto) 0.1, Immature Granulocyte # (Auto) 0.1, Neutrophils % (Manual) 74, Lymphocytes % (Manual) 2, Monocytes % (Manual) 12, Eosinophils % (Manual) 0, Basophils % (Manual) 0, Band Neutrophils 4, Nucleated Red Blood Cells 1, Reactive Lymphocytes 8, Blood Morphology Comment NORMAL, Prothrombin Time 16.2H, INR Comment 1.3, Activated Partial Thromboplast Time 30, Troponin I 0.149H, C- Reactive Protein High Sensitivity 0.89H, B-Type Natriuretic Peptide 100.3H, Procalcitonin 0.25H, Valproic Acid (Depakene) Level 54.4, Influenza Type A (RT- PCR) Not Detected, Influenza Type B (RT-PCR) Not Detected, SARS-CoV-2 RNA (RT- PCR) Not Detected 07/28/21 10:50: Sodium Level 160*H, Potassium Level 4.4, Chloride Level 116H, Carbon Dioxide Level 25, Anion Gap 19H, Blood Urea Nitrogen 62H, Creatinine 2.93H, Estimat Glomerular Filtration Rate 21, BUN/Creatinine Ratio 21, Glucose Level 138H, Calcium Level 10.5H, Corrected Calcium 10.8H, Magnesium Level 2.4, Total Bilirubin 1.2H, Aspartate Amino Transf (AST/SGOT) 11, Alanine Aminotransferase (ALT/SGPT) 6, Alkaline Phosphatase 106, Myoglobin 257.0H, Total Protein 7.0, Albumin 3.6 07/28/21 11:00: Blood Gas Puncture Site RT RAD, Blood Gas Patient Temperature 96.4, Arterial Blood pH 7.42, Arterial Blood Partial Pressure CO2 37, Arterial Blood Partial Pressure O2 72L, Arterial Blood HCO3 24, Arterial Blood Total CO2 24.9, Arterial Blood Oxygen Saturation 91L, Arterial Blood Base Excess -0.5, Bharath Test NA, Blood Gas Ventilator Setting NO, Blood Gas Inspired Oxygen ROOM AIR 07/28/21 11:10: Urine Color DARK YELLOW, Urine Clarity SL CLOUDY, Urine pH 5.0, Urine Specific [place] 1.025H, Urine Protein TRACEH, Urine Glucose (UA) NEGATIVE, Urine Ketones 1+H, Urine Nitrite NEGATIVE, Urine Bilirubin 1+H, Urine Urobilinogen 0.2, Urine Leukocyte Esterase NEGATIVE, Urine RBC (Auto) NEGATIVE, Urine RBC NONE, Urine WBC NONE, Urine Squamous Epithelial Cells RARE, Urine Crystals NONE, Urine Bact eria NEGATIVE, Urine Casts NONE, Urine Mucus NEGATIVE, Urine Culture Indicated NO A/P-Cardiology Assessment/Admission Diagnosis Syncope - likely d/t hypotension secondary to vol depletion LUZ MARINA likely secondary to hypotension and vol depletion Mild troponin elevation - type II ME, likely secondary to LUZ MARINA, hypotension and transient hypoxia Echocardiogram of 07-04-[address] Quiñonez showed LVEF 55-60% Chronic persistent atrial fibrillation with sinus node dysfunction - OAC with Eliquis 2.5mg BID - H/O left atrial appendage clip done at in the past per Dr. 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 Quiñonez Hyperlipidemia H/O frequent falls - right hip fracture in May 2021 Discussion and Recomendations Syncope likely d/t hypotension d/t vol depletion - tx with IVF Monitor lab closely Chronic dysphagia - mangement per medical services Mild troponin elevation likely d/t hypotension, LUZ MARINA and transient hypoxia Hold anti-hypertensives Continue OAC with Eliquis - low dose d/t advanced age Further recs will be based on his hospital course We would like to thank Medical services for this consult MARK SHER MD FACP FAC CCDS Jul 28, 2021 16:18
--- NOTE | 2021-07-28 16:56 | History & Physical ---
History of Present Illness History of Present Illness Reason for visit/HPI This is an 85 yo male who has been in the SNF since a hip fracture in early June of this year. He most recently was admitted with sepsis and acute respiratory failure and was discharged approximately 2 weeks ago to [facility]. There has been issues with poor oral intake per the daughter. He was nauseated this morning and when staff got him up to go the the bathroom, he had a syncopal episode which was followed by a brief unresponsive period with low oxygen saturation. EMS was called and placed him on oxygen at 8 liters but by the time he arrived in the emergency room his oxygen saturation was in the mid-90s on room air. He would answer questions with nodding of his head. His workup showed no signs of infection and no evidence of acute ischemia on CT of the head. He was found to be hypotensive with severe dehydration and acute renal failure as well as hypernatremia, leukocytosis and polycythemia. He was given 1 liter of NS in the ER and will be continued on aggressive IVF rehydration. His troponin-I was also mildly elevated so cardiology will be consulted but it is felt this is likely due to his syncopal episode with h ypoxia. Date of Admission Jul 28, 2021 at 12:49 Date Seen by a Provider: Jul 28, 2021 Time Seen by a Provider: 16:56 I consulted on this patient on 07/28/21 16:50 Attending Physician Napoleon Sneed DO Admitting Physician Napoleon Sneed DO Consult Allergies and Home Medications Allergies Coded Allergies: Cobamamide (Unverified Allergy, Unknown, MEMORY LOSS, 01/18/14) cyanocobalamin (Unverified Allergy, Unknown, MEMORY LOSS, 01/18/14) fentanyl (Verified Allergy, Unknown, 12/08/15) lactose (Verified Allergy, Unknown, 03/03/18) morphine (Verified Allergy, Unknown, Pt has received tramadol in the past, 06/06/21) codeine (Unverified Adverse Reaction, Mild, SICK, 08/23/15) promethazine HCl (Unverified Adverse Reaction, Mild, LOSS OF MEMORY, 04/12/11) hydrocodone (Verified Adverse Reaction, Unknown, 12/08/15) low blood pressure Uncoded Allergies: narcotics (Adverse Reaction, Unknown, 12/08/15) Patient Home Medication List Home Medication List Reviewed: Yes Acetaminophen (Acetaminophen) 325 Mg Tablet, 650 MG PO Q4H PRN for PAIN-MILD (1- 4), (Reported) Entered as Reported by: SOFÍA CHICAS on 07/28/211500 Last Action: Reviewed Apixaban (Eliquis) 2.5 Mg Tablet, 2.5 MG PO BID, (Reported) Entered as Reported by: SOFÍA CHICAS on 07/28/211500 Last Action: Reviewed Bethanechol Chloride (Bethanechol Chloride) 50 Mg Tablet, 50 MG PO 0600,1800, (Reported) Entered as Reported by: JULITO HAJI on 06/05/21 0831 Last Action: Reviewed Carbidopa/Levodopa (Carbidopa-Levo ER 50-200 Tab) 1 Each Tablet.er, 1 EACH PO 0600,1800, (Reported) Entered as Reported by: JULITO HAJI on 06/05/21 0835 Last Action: Reviewed Carboxymethylcellulose Sodium (Refresh Contacts) 12 Ml Drops, 1 DROP OU DAILY, (Reported) Entered as Reported by: SOFÍA CHICAS on 07/04/21940 Last Action: Reviewed Cholecalciferol (Vitamin D3) (Vitamin D3) 125 Mcg Tablet, 125 MCG PO DAILY, (Reported) Entered as Reported by: NICK PEOPLES on 04/06/20 0951 Last Action: Reviewed Divalproex Sodium (Divalproex Sodium) 250 Mg Tablet.dr, 250 MG PO 0600,1800, (Reported) Entered as Reported by: KIKA SEWELL on 03/03/18 1556 Last Action: Reviewed Ferrous Sulfate (Ferrous Sulfate) 325 Mg Tablet, 325 MG PO DAILY, (Reported) Entered as Reported by: SOFAÍ CHICAS on 07/04/21940 Last Action: Reviewed Furosemide (Furosemide) 40 Mg Tablet, 40 MG PO DAILY, (Reported) Entered as Reported by: SOFÍA CHICAS on 07/28/211500 Last Action: Reviewed Lactase (Lactaid) 3,000 Unit Tablet, 3,000 UNIT PO UD PRN for WHEN HAVING DAIRY PRODUCTS, (Reported) Entered as Reported by: SOFÍA CHICAS on 07/28/211500 Last Action: Reviewed Metoclopramide HCl (Metoclopramide HCl) 5 Mg Tablet, 5 MG PO TIDAC, (Reported) Entered as Reported by: SOFÍA CHICAS on 07/28/21 1501 Last Action: Reviewed Metoprolol Succinate (Metoprolol Succinate) 25 Mg Tab.er.24h, 25 MG PO 2100, (Reported) Entered as Reported by: SOFÍA CHICAS on 07/28/21 1508 Last Action: Reviewed Ondansetron (Ondansetron Odt) 4 Mg Tab.rapdis, 4 MG PO Q4H PRN for NAUSEA/VOMITING-1ST LINE, (Reported) Entered as Reported by: SOFÍA CHICAS on 07/28/21 1501 Last Action: Reviewed Pantoprazole Sodium (Pantoprazole Sodium) 40 Mg Tablet.dr, 40 MG PO 0600,1800, (Reported) Entered as Reported by: KIKA SEWELL on 03/03/18 1556 Last Action: Reviewed Potassium Chloride (Potassium Chloride) 20 Meq Tablet.er, 40 MEQ PO DAILY, (Reported) Entered as Reported by: SOFÍA CHICAS on 07/28/21 150 Last Action: Reviewed Sennosides/Docusate Sodium (Senna S Tablet) 1 Each Tablet, 1 EACH PO 0600,1800, (Reported) Entered as Reported by: SOFÍA CHICAS on 07/04/21 0941 Last Action: Reviewed Sertraline HCl (Sertraline HCl) 25 Mg Tablet, 25 MG PO 1800, (Reported) Entered as Reported by: KIKA SEWELL on 03/03/18 1611 Last Action: Reviewed Tamsulosin HCl (Flomax) 0.4 Mg Cap, 0.4 MG PO 1800, (Reported) Entered as Reported by: NICK PEOPLES on 04/06/20 0951 Last Action: Reviewed Discontinued Medications Acetaminophen (Tylenol 8 Hour) 650 Mg Tablet.er, 650 MG PO Q4H PRN for PAIN-MILD (1-4), (Reported) Discontinued Reason: Prescription changed Entered as Reported by: SOFÍA CHICAS on 07/04/21940 Amoxicillin/Potassium Clav (Augmentin 500-125 Tablet) 1 Each Tablet, 1 EACH PO BID Discontinued Reason: No Longer Taking Prescribed by: NAPOLEON SNEED on 07/12/21 1840 Last Action: Discontinued Apixaban (Eliquis) 2.5 Mg Tablet, 2.5 MG PO BID Discontinued Reason: Duplicate Order Prescribed by: NAPOLEON SNEED on 07/12/211839 Last Action: Discontinued Furosemide (Furosemide) 40 Mg Tablet, 40 MG PO DAILY Discontinued Reason: No Longer Taking Prescribed by: NAPOLEON SNEED on 07/12/211839 Last Action: Discontinued Ondansetron HCl (Ondansetron HCl) 4 Mg Tablet, 4 MG PO Q4H PRN for NAUS EA/VOMITING-1ST LINE, (Reported) Discontinued Reason: Duplicate Order Entered as Reported by: SOFÍA CHICAS on 07/04/21 0941 Last Action: Discontinued Potassium Chloride (Klor-Con M20) 20 Meq Tab.er.prt, 40 MEQ PO DAILY@0600 Discontinued Reason: Duplicate Order Prescribed by: NAPOLEON SNEED on 07/12/211839 Last Action: Discontinued Past Tcpavsk-Rsywls-Vgzqrs Hx Patient Social History Marrital Status: Tobacco Use?: No Smoking Status: Former Smoker Smokeless Tobacco Frequency: Former User E-Cig or Vaping type used: Nicotine Use of E-Cig and/or Vaping Alejandro: Never a User Substance use?: No Alcohol Use?: Yes Alcohol type: Beer, Hard Liquor Alcohol Frequency: Daily Additional Alcohol Comments: FORMER ALCOHOL USE Pt feels they are or have been: No Immunizations Up To Date Date of Influenza Vaccine: Jul 14, 2021 First/Initial COVID19 Vaccinat: 2020 Second COVID19 Vaccination Steven: 2020 Tetanus Booster (TDap): Unknown Hepatitis A: No Hepatitis B: No Date of Pneumonia Vaccine: May 17, 2019 Seasonal Allergies Seasonal Allergies: No Current Status Advance Directives: Yes Advance Directive Location: Home Communicates: Verbally Primary Language: Albanian Preferred Spoken Language: Albanian Is interpretation needed?: No Sensory deficits: Vision impairment, Hearing impairment Implanted or Applied Medical D: Pacemaker Past Medical History Surgeries: Abdominal, Amputation, Eye Surgery, Joint Replacement, Orthopedic, Pacemaker Asthma Currently Using CPAP: No Currently Using BIPAP: No Atrial Fibrillation (Paced and anticoagulated), Hypertension Parkinson's Disease, Stroke (Hemorrhagic, persistent left-sided weakness) Sexually Transmitted Disease: No HIV/AIDS: No Benign Prostatic Hyperpl, Prostate Problems, Kidney Stones Abdominal Hernia, Chronic Constipation, Hiatal Hernia, Ulcer Degenerate Disk Disease, Arthritis, Chronic Back Pain, Fractures Cataract Hearing Impairment: Denies Depression Pruritis Blood Disorders: No Adverse Reaction/Blood Tranf: No Family Medical History Cancer G8 BROTHER G8 BROTHER G8 SISTER Cancer of colon G8 BROTHER Cataract 19 FATHER Congestive heart failure 19 FATHER Family history: Allergy DAUGHTER Family history: Alzheimer's disease 19 FATHER Family history: Breast disease G8 SISTER No Family History of: Abdominal aortic aneurysm Chavies's disease Alcoholism Aphasia Chest pain Congenital heart disease Cystic fibrosis Dementia Dysphagia Family history: Arthritis Family history: Asthma Family history: Cardiovascular disease Family history: Coronary thrombosis Family history: Diabetes mellitus Family history: Gastrointestinal disease Family history: Glaucoma Family history: Hypertension Family history: Osteoporosis Family history: Thyroid disorder Headache Hearing loss Heart disease Hereditary disease History of - anemia History of - disorder History of - respiratory disease History of drug abuse Human immunodeficiency virus (HIV) seropositivity Hypercholesterolemia Infertile Kidney disease Malignant neoplasm of lung Myocardial infarction Parkinson's disease Prostate cancer Psychotic disorder Seizure disorder Stroke Tuberculosis Visual impairment No Pertinent Family Hx Review of Systems Constitutional: weakness EENTM: No see HPI, No no symptoms reported, No ear discharge, No hearing loss, No ear pain, No blurred vision, No double vision, No eye pain, No tearing, No vision loss, No dental problems, No hoarseness, No mouth pain, No mouth swelling, No epistaxis, No nose congestion, No nose pain, No throat pain, No throat swelling, No other Respiratory: cough, phlegm Cardiovascular: syncope Gastrointestinal: loss of appetite, nausea Genitourinary: hesitancy (retention) Musculoskeletal: muscle weakness Skin: No no symptoms reported, No see HPI, No change in color, No change in hair/nails, No dryness, No hx of skin cancer, No lesions, No lumps, No pruritus, No rash, No other Psychiatric/Neurological: Depressed, Tremors, Weakness Physical Exam Vital Signs Vital Signs - First Documented 07/28/21 09:37 Temp 34.2 Pulse 95 Resp 24 B/P (MAP) 93/73 (80) Pulse Ox 97 O2 Delivery Room Air O2 Flow Rate 10.00 Capillary Refill : Less Than 3 Seconds Height, Weight, BMI Height: 5'4.00" Weight: 166lbs. 3.0oz. [id number]; 31.44 BMI Method:Stated General Appearance: Other (altered LOC--will nod yes and no but will not speak) HEENT: Other (MM dry) Neck: Supple Respiratory: Decreased Breath Sounds Cardiovascular: Regular Rate, Rhythm, Systolic Murmur, Gallop/S4 Gastrointestinal: Normal Bowel Sounds, Non Tender, Soft Rectal: Deferred Back: No CVA Tenderness Neurologic/Psychiatric: Alert, Oriented x3 Skin: Warm/Dry Comments Laboratory Tests 07/28/21 09:48: White Blood Count 15.4H, Red Blood Count 5.30, Hemoglobin 18.8H, Hematocrit 59H, Mean Corpuscular Volume 112H, Mean Corpuscular Hemoglobin 36H, Mean Corpuscular Hemoglobin Concent 32, Red Cell Distribution Width 16.4H, Platelet Count 194, Mean Platelet Volume 11.4, Immature Granulocyte % (Auto) 1, Neutrophils (%) (Auto) 77H, Lymphocytes (%) (Auto) 8L, Monocytes (%) (Auto) 13H, Eosinophils (%) (Auto) 1, Basophils (%) (Auto) 0, Neutrophils # (Auto) 11.8H, Lymphocytes # (Auto) 1.3, Monocytes # (Auto) 2.0H, Eosinophils # (Auto) 0.1, Basophils # (Auto) 0.1, Immature Granulocyte # (Auto) 0.1, Neutrophils % (Manual) 74, Lymphocytes % (Manual) 2, Monocytes % (Manual) 12, Eosinophils % (Manual) 0, Basophils % (Manual) 0, Band Neutrophils 4, Nucleated Red Blood Cells 1, Reactive Lymphocytes 8, Blood Morphology Comment NORMAL, Prothrombin Time 16.2H, INR Comment 1.3, Activated Partial Thromboplast Time 30, Troponin I 0.149H, C- Reactive Protein High Sensitivity 0.89H, B-Type Natriuretic Peptide 100.3H, Procalcitonin 0.25H, Valproic Acid (Depakene) Level 54.4, Influenza Type A (RT- PCR) Not Detected, Influenza Type B (RT-PCR) Not Detected, SARS-CoV-2 RNA (RT- PCR) Not Detected 07/28/21 10:50: Sodium Level 160*H, Potassium Level 4.4, Chloride Level 116H, Carbon Dioxide Level 25, Anion Gap 19H, Blood Urea Nitrogen 62H, Creatinine 2.93H, Estimat Glomerular Filtration Rate 21, BUN/Creatinine Ratio 21, Glucose Level 138H, Calcium Level 10.5H, Corrected Calcium 10.8H, Magnesium Level 2.4, Total Bilirubin 1.2H, Aspartate Amino Transf (AST/SGOT) 11, Alanine Aminotransferase (ALT/SGPT) 6, Alkaline Phosphatase 106, Myoglobin 257.0H, Total Protein 7.0, Albumin 3.6 07/28/21 11:00: Blood Gas Puncture Site RT RAD, Blood Gas Patient Temperature 96.4, Arterial Blood pH 7.42, Arterial Blood Partial Pressure CO2 37, Arterial Blood Partial Pressure O2 72L, Arterial Blood HCO3 24, Arterial Blood Total CO2 24.9, Arterial Blood Oxygen Saturation 91L, Arterial Blood Base Excess -0.5, Bharath Test NA, Blood Gas Ventilator Setting NO, Blood Gas Inspired Oxygen ROOM AIR 07/28/21 11:10: Urine Color DARK YELLOW, Urine Clarity SL CLOUDY, Urine pH 5.0, Urine Specific Cedar 1.025H, Urine Protein TRACEH, Urine Glucose (UA) NEGATIVE, Urine Ketones 1+H, Urine Nitrite NEGATIVE, Urine Bilirubin 1+H, Urine Urobilinogen 0.2, Urine Leukocyte Esterase NEGATIVE, Urine RBC (Auto) NEGATIVE, Urine RBC NONE, Urine WBC NONE, Urine Squamous Epithelial Cells RARE, Urine Crystals NONE, Urine Bacteria NEGATIVE, Urine Casts NONE, Urine Mucus NEGATIVE, Urine Culture Indicated NO Assessment/Plan Assessment and Plan 1. Severe Dehydration with Acute Renal Failure, Hypernatremia, Leukocytosis, Polycythemia--hydrate aggressively and monitor BUN/Cr, electrolytes and CBC 2. Hypotension--hydrate and monitor 3. History of atrial fibrillation--resume eliquis 4. Elevated Troponi-I due to syncopal episode with brief hypoxic episode--cardiology consulted 5. Syncopal episode due to hypotension and severe dehydration 6. Poor oral intake with Cachexia and history of dysphagia with aspiration risk--ST evaluated and will start Dysphagia 1 diet with honey thickened liquids 7. Weakness--will resume PT/OT once BP stable 8. History of Seizure--will try Keppra instead of depakote as daughter feels his affect and clarity were better during last hospital stay when he was off his depakote, ativan prn seizure 9. Parkinson's--resume sinemet once taking orals better Admission Diagnosis Admission Status: Inpatient Order (span 2 midnights) Reason for Inpatient Admission: Will need at least 48hrs of IVFs NAPOLEON SNEED DO Jul 28, 2021 16:56
[2021-07-28] MEDS ORDERED: PANTOPRAZOLE 40 MG (PROTONIX) VIAL IV NR (17:00)
[2021-07-28] MEDS ORDERED: ACETAMINOPHEN 325 MG TABLET PO PRN (17:00)
[2021-07-28 19:57] VITALS: BP 113/71
[2021-07-28] MEDS: RT-ALBUTEROL SULF 2.5 MG/3 ML PRE-MIX VIAL INH SCH (20:58)
[2021-07-28] MEDS: APIXABAN 2.5 MG (ELIQUIS) TABLET PO SCH (21:59)
[2021-07-29] VITALS (7 sets, daily range): BP systolic 94–120; BP diastolic 63–82
[2021-07-29] MEDS: NS IV 1000 ML 1,000 ML IV SCH (06:04)
[2021-07-29 07:22] LABS: HEMOGLOBIN 15.7 g/dL (13.3-17.7); LYMPHOCYTES # (AUTO) 0.9 10^3/uL (1.0-4.0); MEAN PLATELET VOLUME 11.2 fL (9.0-12.2)
[2021-07-29 07:24] LABS: BASOPHILS % (AUTO) 0 % (0-10); EOSINOPHILS % (AUTO) 0 % (0-10); HEMATOCRIT 50 % (40-54); LYMPHOCYTES % (AUTO) 8 % (12-44); MEAN CORPUSCULAR HEMOGLOBIN 35 pg (25-34); MEAN CORPUSCULAR HGB CONC 32 g/dL (32-36); MEAN CORPUSCULAR VOLUME 112 fL (80-99); MONOCYTES # (AUTO) 1.2 10^3/uL (0.0-1.0); MONOCYTES % (AUTO) 11 % (0-12); NEUTROPHILS # (AUTO) 8.8 10^3/uL (1.8-7.8); NEUTROPHILS % (AUTO) 80 % (42-75); PLATELET COUNT 98 10^3/uL (130-400)
[2021-07-29] MEDS: RT-ALBUTEROL SULF 2.5 MG/3 ML PRE-MIX VIAL INH SCH ×4 (07:40→21:44)
[2021-07-29 07:44] LABS: CALCIUM 10.2 MG/DL (8.5-10.1); CREATININE SERUM 1.93 MG/DL (0.60-1.30); MAGNESIUM 2.3 MG/DL (1.6-2.4); POTASSIUM 4.5 MMOL/L (3.6-5.0)
[2021-07-29 07:45] LABS: CHOLESTEROL 152 MG/DL (< 200); HDL CHOLESTEROL 23 MG/DL (40-60); TRIGLYCERIDES 177 MG/DL (<150); VLDL CHOLESTEROL 35 MG/DL (5-40)
[2021-07-29] MEDS: PANTOPRAZOLE 40 MG (PROTONIX) VIAL IV SCH (08:47)
[2021-07-29] MEDS: APIXABAN 2.5 MG (ELIQUIS) TABLET PO SCH ×2 (08:49→21:16)
[2021-07-29] MEDS: D5W 1000 ML IV SOLUTION 1,000 ML IV SCH ×2 (11:41→21:28)
--- NOTE | 2021-07-29 12:52 | Progress Note ---
Subjective Subjective Date Seen by Provider: Jul 29, 2021 Time Seen by Provider: 12:39 Upon follow-up for severe dehydration and acute renal failure, Pierre appears to have a depressed, flat affect; he is supine in his bed with his eyes half open and is not verbally responsive to questioning. Upon asking how he was feeling, Pirere shook his head. Has catheter in place with 275 ml output, which appears meka in color. His left arm appears edematous, possibly due to IV placement, and is causing some pain, as evidenced from his affirmative nod. Today he is accompanied by his JUSTIN, who is at bedside; she reports that he has refused water, but will still drink it if brought to his mouth. Review of Systems ROS Unable to Obtain: Patient not verbally responsive Musculoskeletal: arm pain (Left ) Neurological: Other (Depressed affect) Objective Exam Vital Signs Vital Signs Date Time Temp Pulse Resp B/P (MAP) Pulse Ox O2 Delivery O2 Flow Rate FiO2 07/29/21 12:00 36.6 107 16 109/76 (87) 92 Room Air 07/29/21 08:00 Nasal Cannula 4.00 07/29/21 07:41 88 Nasal Cannula 3.00 07/29/21 07:19 37.0 110 18 120/82 (95) 92 Room Air 07/29/21 07:00 110 07/29/21 04:52 35.7 105 20 110/72 (85) 93 Nasal Cannula 3.00 07/29/21 01:00 114 07/29/21 00:50 36.2 98 20 106/69 (81) 92 Nasal Cannula 2.00 07/28/21 20:58 92 Nasal Cannula 2.00 07/28/21 20:00 Room Air 07/28/21 19:57 36.3 101 18 113/71 (85) 90 Room Air 07/28/21 19:00 102 07/28/21 18:19 Room Air 07/28/21 16:00 35.4 99 18 122/67 (85) 92 Room Air 07/28/21 14:13 89 14 100/65 98 I & O 07/29/21 07:00 Intake Total 1110 ml Output Total 375 ml Balance 735 ml General Appearance: No Apparent Distress, Chronically ill, Cachetic, Other (altered LOC--will nod yes and no but will not speak) HEENT: Other (MM dry) Neck: Supple Respiratory: Decreased Breath Sounds, Other (Taking shallow breaths) Cardiovascular: Regular Rate, Rhythm, Systolic Murmur, Gallop/S4, Tachycardia Gastrointestinal: Normal Bowel Sounds, Non Tender, Soft Rectal: Deferred Back: No CVA Tenderness Extremity: Normal Inspection, Non Tender, No Pedal Edema, Swelling (Edema in L arm) Neurologic/Psychiatric: Depressed Affect, Disoriented Skin: Warm/Dry Results Lab Laboratory Tests 07/29/21 06:50: White Blood Count 11.0, Red Blood Count 4.43, Hemoglobin 15.7, Hematocrit 50, Mean Corpuscular Volume 112H, Mean Corpuscular Hemoglobin 35H, Mean Corpuscular Hemoglobin Concent 32, Red Cell Distribution Width 16.5H, Platelet Count 98L, Mean Platelet Volume 11.2, Immature Granulocyte % (Auto) 1, Neutrophils (%) (Auto) 80H, Lymphocytes (%) (Auto) 8L, Monocytes (%) (Auto) 11, Eosinophils (%) (Auto) 0, Basophils (%) (Auto) 0, Neutrophils # (Auto) 8.8H, Lymphocytes # (Auto) 0.9L, Monocytes # (Auto) 1.2H, Eosinophils # (Auto) 0.0, Basophils # (Auto) 0.0, Immature Granulocyte # (Auto) 0.1, Percent Immature Platelet Fraction 3.2, Sodium Level 160*H, Potassium Level 4.5, Chloride Level 123H, Carbon Dioxide Level 19L, Anion Gap 18H, Blood Urea Nitrogen 72H, Creatinine 1.93H, Estimat Glomerular Filtration Rate 33, BUN/Creatinine Ratio 37, Glucose Level 113H, Calcium Level 10.2H, Magnesium Level 2.3, C-Reactive Protein High Sensitivity 6.24H, Triglycerides Level 177H, Cholesterol Level 152, LDL Cholesterol Direct 92, VLDL Cholesterol 35, HDL Cholesterol 23L Meds Item Value Date Time Apixaban 2.5 mg 07/28/21 2100 (Eliquis Tablet) BID/PO 07/29/21 0849 Ondansetron HCl 4 mg 07/28/21 1415 (Zofran Q4H PRN/IV Injection (Sdv)) Sodium Chloride 10-40 ML 07/28/21 1415 (Catheter Flush NEEDED PRN/IV 07/29/21 0847 Syringe) Acetaminophen 650 mg 07/28/21 1700 (Tylenol Tablet) Q4H PRN/PO Pantoprazole 40 mg 07/29/21 0900 (Protonix DAILY/IV 07/29/21 0847 Injection) Albuterol Sulfate 2.5 mg 07/28/21 2100 (Proventil RTTID/INH 07/29/21 0740 Pre-Mix Nebs (Rt)) Levetiracetam 250 mg 07/28/21 2100 (Keppra Tablet) BID/PO 07/29/21 0849 Dextrose/Water 1,000 ml @ 100 mls/hr 07/29/21 1115 Metoprolol 25 mg 07/30/21 0900 Succinate DAILY/PO (Toprol Xl Tablet) Radiology Date of Exam:07/28/21 CHEST 1 VIEW, AP/PA ONLY Indication: Chest pain. Unresponsive patient. COMPARISON: 07/12/2021 FINDINGS: Single frontal radiograph view the chest was obtained and demonstrates persistent low inspiratory volumes with asymmetric elevation left hemidiaphragm and small left effusion. Patchy airspace opacities are also noted in the right base. Otherwise, aeration is improved compared to prior exam. Cardiac silhouette is partially obscured, but appears enlarged. Pulmonary vasculature is within normal limits. Left-sided 2-lead pacemaker is noted. IMPRESSION: 1. Low lung volumes with small left effusion and probable patchy right basilar atelectasis. 2. Cardiomegaly. Assessment/Plan Assessment/Plan Admission Status: Inpatient Order (span 2 midnights) Assessment and Plan 1. Severe Dehydration with Acute Renal Failure, Hypernatremia, Leukocytosis, Polycythemia, and Thrombocytopenia -Continue to hydrate ==>D/C NS and begin D5W -Repeat CBC and Chem 7 in 24hrs to monitor platelets, BUN/Cr, and electrolytes 2. Hypotension --Hydrate and monitor 3. History of atrial fibrillation -Eliquis was resumed 4. Elevated Troponi-I -Due to syncopal episode with brief hypoxic episode--cardiology consulted 5. Syncopal episode due to hypotension and severe dehydration 6. Poor oral intake with Cachexia and history of dysphagia with aspiration risk -ST evaluated and started Dysphagia 1 diet with honey thickened liquids 7. Weakness -Will resume PT/OT once BP stable 8. History of Seizure -Will try Keppra instead of depakote as daughter feels his affect and clarity were better during last hospital stay when he was off his depakote, ativan prn seizure 9. Parkinson's -Resume Sinemet once taking orals better 10. Tachycardia -Metoprolol 25mg PO QD 11. L arm edema, recurrent -D/C placing IVs in this arm -Wrap in jesica bandage Supervisory-Addendum Brief Verification & Attestation Participated in pt care: history, physical Personally performed: exam, history, supervision of care Care discussed with: Medical Student Procedures: n/a Results interpretation: Verified all documentation Patient seen and assessed. Very little verbalization except telling med the reason he wasn't eating or drinking is because he just didn't feel like it. Otherwise nodded yes and no to answers. Agree with above assessment and plan. Prognosis prison is poor so will speak with daughter about prison options. DEISY RIBEIRO Jul 29, 2021 12:52 NAPOLEON AKHTAR DO Jul 29, 2021 16:50
--- NOTE | 2021-07-29 15:17 | Progress Note - Cardiology ---
Cardiology SOAP Progress Note Subjective: Doesn't not respond to questions. Does not report any symptoms Objective: I&O/Vital Signs 07/29/21 07/29/21 07/29/21 07/29/21 04:52 07:00 07:19 07:41 Temp 35.7 37.0 Pulse 105 110 110 Resp 20 18 B/P (MAP) 110/72 (85) 120/82 (95) Pulse Ox 93 92 88 O2 Delivery Nasal Cannula Room Air Nasal Cannula O2 Flow Rate 3.00 3.00 07/29/21 07/29/21 07/29/21 07/29/21 08:00 12:00 12:54 14:35 Temp 36.6 Pulse 107 91 Resp 16 B/P (MAP) 109/76 (87) Pulse Ox 92 95 O2 Delivery Nasal Cannula Room Air Nasal Cannula O2 Flow Rate 4.00 4.00 07/29/21 00:00 Intake Total 60 ml Output Total 100 ml Balance -40 ml Weight (Pounds): 166 Weight (Ounces): 3.0 Weight (Calculated Kilograms): 70.877588 Constitutional: No AAO x 3 (Does not respond to questions, orientation cannot be determined); other (thin, frail) Respiratory: No accessory muscle use, No respiratory distress; chest expansion is symmetric, chest is bilaterally symmetric, other (coarse breath sounds) Cardiovascular: regular rate-rhythm (V-paced on tele); No JVD; S1 and S2 Gastrointestional: No tender; soft, audible bowel sounds Extremities: no lower extremity edema bilateral Neurologic/Psychiatric: other (LLE and LUE weakness) Skin: No rash on exposed areas, No ulcerations on exposed areas Results/Procedures: Labs Laboratory Tests 07/29/21 06:50: White Blood Count 11.0, Red Blood Count 4.43, Hemoglobin 15.7, Hematocrit 50, Mean Corpuscular Volume 112H, Mean Corpuscular Hemoglobin 35H, Mean Corpuscular Hemoglobin Concent 32, Red Cell Distribution Width 16.5H, Platelet Count 98L, Mean Platelet Volume 11.2, Immature Granulocyte % (Auto) 1, Neutrophils (%) (Auto) 80H, Lymphocytes (%) (Auto) 8L, Monocytes (%) (Auto) 11, Eosinophils (%) (Auto) 0, Basophils (%) (Auto) 0, Neutrophils # (Auto) 8.8H, Lymphocytes # (Auto) 0.9L, Monocytes # (Auto) 1.2H, Eosinophils # (Auto) 0.0, Basophils # (Auto) 0.0, Immature Granulocyte # (Auto) 0.1, Percent Immature Platelet Fraction 3.2, Sodium Level 160*H, Potassium Level 4.5, Chloride Level 123H, Carbon Dioxide Level 19L, Anion Gap 18H, Blood Urea Nitrogen 72H, Creatinine 1.93H, Estimat Glomerular Filtration Rate 33, BUN/Creatinine Ratio 37, Glucose Level 113H, Calcium Level 10.2H, Magnesium Level 2.3, C-Reactive Protein High Sensitivity 6.24H, Triglycerides Level 177H, Cholesterol Level 152, LDL Cholesterol Direct 92, VLDL Cholesterol 35, HDL Cholesterol 23L Laboratory Tests 07/28/21 09:48 07/28/21 10:50 07/29/21 06:50 A/P: Assessment: Syncope - likely d/t hypotension secondary to vol depletion LUZ MARINA and hypernatremia likely secondary vol depletion - managed by the Med Svce Mild troponin elevation - type II MS, likely secondary to transient hypotension and transient hypoxia Echocardiogram of 07-04-[address] Quiñonez showed LVEF 55-60% Chronic persistent atrial fibrillation with sinus node dysfunction - OAC with Eliquis 2.5mg BID - H/O left atrial appendage clip done at in the past per Dr. 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 Quiñonez Hyperlipidemia H/O frequent falls - right hip fracture in May 2021 Plan: iv fluids Hold antihypertensives for now Continue OAC with Eliquis - low dose d/t advanced age Monitor labs MARK SHER MD FACP [facility] CCDS Jul 29, 2021 15:17
[2021-07-29] MEDS ORDERED: FUROSEMIDE 40 MG/4 ML INJ (LASIX) IVP ONE (17:00)
[2021-07-29] MEDS ORDERED: RT-ALBUTEROL SULF 2.5 MG/3 ML PRE-MIX VIAL INH SCH (20:00)
[2021-07-30] MEDS: RT-ALBUTEROL SULF 2.5 MG/3 ML PRE-MIX VIAL INH SCH ×3 (03:03→10:42)
[2021-07-30 04:30] VITALS: BP 111/74
[2021-07-30 06:05] LABS: MEAN PLATELET VOLUME 11.3 fL (9.0-12.2)
[2021-07-30 06:08] LABS: HEMOGLOBIN 14.3 g/dL (13.3-17.7); WHITE BLOOD COUNT 7.2 10^3/uL (4.3-11.0)
[2021-07-30 06:17] LABS: POTASSIUM 3.5 MMOL/L (3.6-5.0)
[2021-07-30 06:19] LABS: CALCIUM 9.6 MG/DL (8.5-10.1)
[2021-07-30 06:23] LABS: CREATININE SERUM 1.1 MG/DL (0.60-1.30)
[2021-07-30] MEDS: D5W 1000 ML IV SOLUTION 1,000 ML IV SCH (07:36)
--- NOTE | 2021-07-30 07:45 | Diagnostic Imaging Report ---
Indication: Follow-up atelectasis. TIME OF EXAM: 5:49 AM Correlation is made with prior chest from 07/28/2021. Heart is enlarged. Cardiac pacemaker remains in place. Bilateral infiltrates and left effusion show no real change. Upper lung roque are clear. No pneumothorax. IMPRESSION: Stable chest since exam 2 days earlier. Dictated by: Dictated on workstation # [id number]
[2021-07-30 08:00] VITALS: BP 129/80
--- NOTE | 2021-07-30 08:55 | Progress Note ---
Subjective Subjective Date Seen by Provider: Jul 30, 2021 Time Seen by Provider: 09:15 PT IS AN 85 Y/O MALE WHO IS A CLINIC PATIENT OF DR. 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 THE PATIENT IS HOSPITALIZED FOR DEHYDRATION, SYNCOPAL EPISODE, WITH REFUSAL OF MOST FOOD/FLUIDS PER REPORT PT REPORTS THAT HE FEELS LIKE HE IS DYING, AND JUST WANTS TO BE KEPT COMFORTABLE STAFF REPORTS THAT HE WAS CHOKING ON SMALL AMOUNT OF APPLE SAUCE THIS MORNING AND HAD TO BE SUCTIONED TO PROTECT HIS AIRWAY. THEY ARE CONCERNED ABOUT GIVING HIM ANY FOOD/FLUIDS OR PILLS DUE TO THE SEVERE CHOKING INCIDENT Review of Systems General: Fatigue, Malaise, Appetite (DECREASED) Pulmonary: Dyspnea Gastrointestinal: No: Nausea Neurological: Weakness, Other (Depressed affect) Objective Exam Vital Signs Vital Signs Date Time Temp Pulse Resp B/P (MAP) Pulse Ox O2 Delivery O2 Flow Rate FiO2 07/30/21 08:01 95 Nasal Cannula 5.00 07/30/21 07:00 91 07/30/21 04:30 36.6 99 19 111/74 (86) 95 Nasal Cannula 5.00 07/30/21 03:03 95 Nasal Cannula 5.00 07/30/21 01:00 90 07/29/21 23:59 37.3 94 19 110/69 (83) 96 Nasal Cannula 5.00 07/29/21 21:44 96 Nasal Cannula 6.00 07/29/21 20:00 Nasal Cannula 4.00 07/29/21 19:49 36.9 83 24 101/71 (81) 96 Nasal Cannula 6.00 07/29/21 19:00 100 07/29/21 18:57 94 Nasal Cannula 6.00 07/29/21 18:23 95 Nasal Cannula 6.00 07/29/21 16:00 36.0 109 24 94/63 (73) 93 Nasal Cannula 6.00 07/29/21 14:35 95 Nasal Cannula 4.00 07/29/21 12:54 91 07/29/21 12:00 36.6 107 16 109/76 (87) 92 Room Air I & O 07/30/21 06:59 Intake Total 725 ml Output Total 1450 ml Balance -725 ml General Appearance: No Apparent Distress, Chronically ill, Cachetic, Other (ANSWERED QUESTIONS TODAY WITH SMALL SENTENCES) HEENT: Other (DRY MOUTH) Neck: Supple Respiratory: Decreased Breath Sounds, Other (POOR EFFORT, RAPID SHALLOW BREATHING) Cardiovascular: Regular Rate, Rhythm, Systolic Murmur, Tachycardia Gastrointestinal: Normal Bowel Sounds, Non Tender, Soft Rectal: Deferred Back: No CVA Tenderness Extremity: Normal Inspection, Non Tender, No Pedal Edema, Swelling (COMPRESSION SLEEVE IN PLACE ON LEFT ARM) Neurologic/Psychiatric: Other (AROUSES TO VOICE, OPENS EYES, INTERACTS WTIH THIS GRASS CUTTER, ANSWERS QUESTIONS IN SHORT SENTENCES OR ONE WORD ANSWERS, APPEARS VERY FATIGUED, ILL) Skin: Warm/Dry Results Lab Laboratory Tests 07/30/21 05:40: White Blood Count 7.2, Red Blood Count 4.03L, Hemoglobin 14.3, Hematocrit 45, Mean Corpuscular Volume 112H, Mean Corpuscular Hemoglobin 36H, Mean Corpuscular Hemoglobin Concent 32, Red Cell Distribution Width 16.0H, Platelet Count 75L, Mean Platelet Volume 11.3, Percent Immature Platelet Fraction 4.0, Sodium Level 151H, Potassium Level 3.5L, Chloride Level 114H, Carbon Dioxide Level 25, Anion Gap 12, Blood Urea Nitrogen 59H, Creatinine 1.10, Estimat Glomerular Filtration Rate 64, BUN/Creatinine Ratio 54, Glucose Level 179H, Calcium Level 9.6 Assessment/Plan Assessment/Plan Assessment and Plan ACUTE RENAL FAILURE DEHYDRATION CHRONIC ATRIAL FIBRILLATION ELEVATED TROPONIN PARKINSON'S DISEASE SEIZURE DISORDER END OF LIFE CARE PT WAS ADMITTED FOR SEVERE DEHYDRATION WITH ACUTE RENAL FAILURE, AND MULTIPLE CONTRIBUTING PHYSICAL AND MEDICAL COMPLICATIONS. AFTER A LONG CONVERSATION WITH HIS DTR ESDRAS, WE HAVE DETERMINED THAT MR. ADKINS NEEDS TO BE TRANSITIONED TO COMFORT CARE IN THE HOSPITAL. I HAD THE DISCUSSION WITH HIS DTR ESDRAS TODAY ON THE PHONE, AND I INFORMED HER THAT I HAD A CONVERSATION WITH SALUD TODAY - WHEN QUESTIONED, I ASKED HIM HOW HE FELT AND HE TOLD ME THAT HE FELT LIKE HE WAS DYING AND WHEN QUESTIONED IF HE WANTED TO JUST BE KEPT COMFORTABLE AND BE ALLOWED TO - HE LOOKED AT ME IN THE EYES AND TOLD ME YES. SHE AGREED THAT ON THIS ADMISSION SHE FELT IF HE WAS GIVING UP. SHE TOLD ME THAT SHE SAW HOW DEBILITATED HE HAD BECOME AND HOW FRAIL HE APPEARED COMPARED TO HIS ADMISSION A FEW WEEKS AGO. SHE UNDERSTANDS THAT WE WILL BE MAKING HIM A DNR, AND TAKING AWAY OTHER MEDICATIONS LIKE ELIQUIS, METOPROLOL, AND WEANING DOWN HIS OXYGEN. SHE AGREES WITH THIS PLAN AND JUST WANTS TO MAKE SURE HE IS COMFORTABLE. I HAVE INFORMED THE NURSING STAFF AND WE WILL ALLOW HIS GRANDCHILDREN TO COME SEE HIM TO SAY THEIR GOODBYES IN THE HOSPITAL. PAUL JUAREZ MD Jul 30, 2021 08:55
[2021-07-30] MEDS: PANTOPRAZOLE 40 MG (PROTONIX) VIAL IV SCH (09:21)
[2021-07-30] MEDS: APIXABAN 2.5 MG (ELIQUIS) TABLET PO SCH (09:51)
[2021-07-30] MEDS ORDERED: BISACODYL 10 MG SUPP (DULCOLAX) PR PRN (10:15)
[2021-07-30] MEDS ORDERED: GLYCOPYRROLATE 0.2 MG/ML (ROBINUL) 2 ML VIAL IV PRN (10:15)
[2021-07-30] MEDS ORDERED: PROMETHAZINE INJ 25 MG/ML (PHENERGAN) AMP IVP PRN (10:15)
[2021-07-30] MEDS ORDERED: RT-ALBUTEROL/IPRATROPIUM 3 ML (DUONEB) VIAL INH PRN (10:15)
[2021-07-30] MEDS ORDERED: SALIVA STIMULANT MOUTH SPRAY (BIOTENE) 1.5 OZ MM PRN (10:15)
[2021-07-30] MEDS ORDERED: ONDANSETRON 4 MG/2 ML (SDV) Z0FRAN IVP PRN (10:15)
[2021-07-30] MEDS ORDERED: ACETAMINOPHEN 650 MG SUPP (TYLENOL) PR PRN (10:15)
[2021-07-30] MEDS ORDERED: ARTIFICAL TEARS 0.4 ML UNIT DOSE (REFRESH PLUS) OU PRN (10:15)
--- NOTE | 2021-07-30 13:16 | Progress Note - Cardiology ---
Cardiology SOAP Progress Note Subjective: Verbally unresponsive Objective: I&O/Vital Signs 07/30/21 07/30/21 07/30/21 07/30/21 03:03 04:30 07:00 08:00 Temp 36.6 36.3 Pulse 99 91 91 Resp B/P (MAP) 111/74 (86) 129/80 (96) Pulse Ox 95 95 98 O2 Delivery Nasal Cannula Nasal Cannula Nasal Cannula O2 Flow Rate 5.00 5.00 5.00 07/30/21 07/30/21 08:00 08:01 Pulse Ox 95 O2 Delivery Nasal Cannula Nasal Cannula O2 Flow Rate 6.00 5.00 07/30/21 00:00 Intake Total 100 ml Output Total 1050 ml Balance -950 ml Weight (Pounds): 166 Weight (Ounces): 3.0 Weight (Calculated Kilograms): 70.438745 Constitutional: No AAO x 3 (Does not respond to questions, orientation cannot be determined), No well-nourished; other (thin, frail) Respiratory: No accessory muscle use, No respiratory distress; chest expansion is symmetric, chest is bilaterally symmetric, other (coarse breath sounds) Cardiovascular: regular rate-rhythm (V-paced on tele); No JVD; S1 and S2 Gastrointestional: No tender; soft, audible bowel sounds Extremities: no lower extremity edema bilateral Neurologic/Psychiatric: other (LLE and LUE weakness) Skin: No rash on exposed areas, No ulcerations on exposed areas Results/Procedures: Labs Laboratory Tests 07/30/21 05:40: White Blood Count 7.2, Red Blood Count 4.03L, Hemoglobin 14.3, Hematocrit 45, Mean Corpuscular Volume 112H, Mean Corpuscular Hemoglobin 36H, Mean Corpuscular Hemoglobin Concent 32, Red Cell Distribution Width 16.0H, Platelet Count 75L, Mean Platelet Volume 11.3, Percent Immature Platelet Fraction 4.0, Sodium Level 151H, Potassium Level 3.5L, Chloride Level 114H, Carbon Dioxide Level 25, Anion Gap 12, Blood Urea Nitrogen 59H, Creatinine 1.10, Estimat Glomerular Filtration Rate 64, BUN/Creatinine Ratio 54, Glucose Level 179H, Calcium Level 9.6 Laboratory Tests 07/29/21 06:50 07/30/21 05:40 A/P: Assessment: [id number] Syncope - likely d/t hypotension secondary to vol depletion LUZ MARINA and hypernatremia likely secondary vol depletion - managed by the Med Svce Mild troponin elevation - type II MA, likely secondary to transient hypotension and transient hypoxia Echocardiogram of 07-04-[address] Quiñonez showed LVEF 55-60% Chronic persistent atrial fibrillation with sinus node dysfunction - OAC with Eliquis 2.5mg BID - H/O left atrial appendage clip done at in the past per Dr. 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 Quiñonez Hyperlipidemia H/O frequent falls - right hip fracture in May 2021 Plan: Has not had much oral intake. Nursing reports inability to swallow and probable aspiration. Pt has wanted comfort care. Dr Packer is checking with the family Switch OAC to sc Lovenox if treatment is to continue Clinical Quality Measures Type of Care: Type of Care: Comfort Measures MARK SHRE MD FACP FAC CCDS Jul 30, 2021 13:16
[2021-07-31] MEDS: LORazepam INJ 2 MG/ML (ATIVAN) VIAL IVP PRN ×7 (06:50→23:24)
--- NOTE | 2021-07-31 08:30 | Speech Therapy Progress Note ---
Therapy Progress Note Due to recent MBS which he exhibited severe aspiration/penetration episodes. Also re-occurring choking events with aspiration and aspiration pneumonia, the patient is recommended for an alternate method of intake such as NG or PEG. The patient is not tolerating anything by mouth and is not anticipated to improve to have oral intake. Orders being discharged due to unsafe condition for any oral intake at this time. PHILLIP RG Jul 31, 2021 08:30
--- NOTE | 2021-07-31 08:47 | Progress Note ---
Subjective Subjective Date Seen by Provider: Jul 31, 2021 Time Seen by Provider: 08:35 Upon follow-up for severe dehydration and acute renal failure, Pierre appears to have a depressed, flat affect; he is supine in his bed with his eyes open and is not verbally responsive to questioning. Has catheter in place with 250 ml output, which appears meka in color. Today he is accompanied by his daughter, Bette. Pierre is now on comfort care; SS will be consulted for hospice care. Review of Systems ROS Unable to Obtain: Does not respond verbally General: Fatigue, Malaise, Appetite (DECREASED) Pulmonary: Dyspnea Gastrointestinal: No: Nausea Neurological: Weakness, Other (Depressed affect) Objective Exam Vital Signs Vital Signs Date Time Temp Pulse Resp B/P (MAP) Pulse Ox O2 Delivery O2 Flow Rate FiO2 07/30/21 20:26 Nasal Cannula 6.00 I & O 07/31/21 06:59 Intake Total 1300 ml Output Total 765 ml Balance 535 ml General Appearance: No Apparent Distress, Chronically ill, Cachetic HEENT: Other (DRY MOUTH) Neck: Supple Respiratory: Decreased Breath Sounds, Other (POOR EFFORT, RAPID SHALLOW BREATHING) Cardiovascular: Regular Rate, Rhythm, Systolic Murmur, Tachycardia Gastrointestinal: Normal Bowel Sounds, Non Tender, Soft Rectal: Deferred Back: No CVA Tenderness Extremity: Normal Inspection, Non Tender, No Pedal Edema, Swelling (COMPRESSION SLEEVE IN PLACE ON LEFT ARM) Neurologic/Psychiatric: Other (AROUSES TO VOICE, OPENS EYES, APPEARS VERY FATIGUED, ILL) Skin: Warm/Dry Assessment/Plan Assessment/Plan Assessment and Plan 1. Severe Dehydration with Acute Renal Failure, Hypernatremia, Leukocytosis, Polycythemia, and Thrombocytopenia 2. Hypotension 3. History of atrial fibrillation 4. Elevated Troponi-I -Due to syncopal episode with brief hypoxic episode--cardiology consulted 5. Syncopal episode due to hypotension and severe dehydration 6. Poor oral intake with Cachexia and history of dysphagia with aspiration risk 7. Weakness 8. History of Seizure 9. Parkinson's 10. Tachycardia 11. L arm edema, recurrent -Compression sleeve in place After discussion with close family, Pierre will be placed on comfort-care measures. Fluids and lab draws were D/C. payroll services analyst will be consulted for hospice. Supervisory-Addendum Brief Verification & Attestation Participated in pt care: history, physical Personally performed: exam, history, supervision of care Care discussed with: Medical Student Procedures: n/a Results interpretation: Verified all documentation Patient seen and assessed. His condition has worsened since I last saw him 2 days ago so he may not make it long enough to go back to the [place] on hospice care. He is resting comfortably with his daughter at the bedside and his son will be coming up later today. Currently he has no pain but has numerous allergies to pain meds so will go with fentanyl if needed as we used this some after his recent hip surgery as it was not a true allergy but just made him very groggy and confused. DEISY RIBEIRO Jul 31, 2021 08:47 NAPOLEON AKHTAR DO Jul 31, 2021 12:37
--- NOTE | 2021-07-31 10:58 | Progress Note - Cardiology ---
Cardiology SOAP Progress Note Subjective: Lethargic Comfort care No visible signs of distress Objective: I&O/Vital Signs 07/31/21 08:00 O2 Delivery Nasal Cannula O2 Flow Rate 6.00 07/31/21 00:00 Intake Total 0 ml Output Total 515 ml Balance -515 ml Weight (Pounds): 166 Weight (Ounces): 3.0 Weight (Calculated Kilograms): 70.569478 Constitutional: No AAO x 3 (Does not respond to questions, orientation cannot be determined), No well-nourished; other (thin, frail) Respiratory: No accessory muscle use, No respiratory distress; chest expansion is symmetric, chest is bilaterally symmetric, other (coarse breath sounds) Cardiovascular: regular rate-rhythm (V-paced on tele); No JVD; S1 and S2 Gastrointestional: No tender; soft, audible bowel sounds Extremities: no lower extremity edema bilateral Neurologic/Psychiatric: other (LLE and LUE weakness) Skin: No rash on exposed areas, No ulcerations on exposed areas A/P: Assessment: [id number] Syncope - likely d/t hypotension secondary to vol depletion LUZ MARINA and hypernatremia likely secondary vol depletion - managed by the Med Svce Mild troponin elevation - type II [place], likely secondary to transient hypotension and transient hypoxia Echocardiogram of 07-04-[address] Quiñonez showed LVEF 55-60% Chronic persistent atrial fibrillation with sinus node dysfunction - OAC with Eliquis 2.5mg BID - H/O left atrial appendage clip done at in the past per Dr. 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 Quiñonez Hyperlipidemia H/O frequent falls - right hip fracture in May 2021 Plan: Comfort care Clinical Quality Measures Type of Care: Type of Care: Comfort Measures SOFIA RITTER Jul 31, 2021 10:58
[2021-07-31] MEDS: morphine INJ 4 MG/ML 1 ML (VIAL/SYRINGE) IVP PRN ×2 (14:17→16:12)
[2021-07-31] MEDS ORDERED: morphine INJ 10 MG/ML 1ML (SYR OR VIAL) IVP PRN (17:15)
[2021-07-31] MEDS: morphine INJ 4 MG/ML 1 ML (VIAL/SYRINGE) IV PRN ×2 (18:58→23:24)
--- NOTE | 2021-07-31 19:09 | Physician Query Clarification ---
Physician Query-General Query to Physician: The medical record reflects the following clinical scenario: The patient, in the setting of History/Risk factors, Advanced age, HTN, At. fib Clinical Findings troponin I 0.149, BP 93/73, " type II SD, likely secondary to transient hypotension and transient hypoxia" per prosthetic aides teacher Treatment Cardiology consult, Metoprolol, Eliquis, Question: Do you agree with the impression of Type II SD per Dr. Teri Baca? 1. Yes; will document Type II SD, present on admission in the Progress Notes 2. No; will continue current documentation in the Progress Notes 3. Other; will document explanation of clinical findings 4. Clinically undetermined; no explanation for clinical findings Please clarify and document your clinical opinion in the Progress Notes and Discharge Summary including the definitive and/or presumptive diagnosis, (suspected or probable), related to the above clinical findings. Please include clinical findings supporting your diagnosis. In responding to this query, please exercise your independent professional judgment. The purpose of this communication is to more accurately reflect the complexity of your patients condition. The fact that a question is asked does not imply that any particular answer is desired or expected. Please remember a lack of response to the above will prompt a phone page by CD I/coding staff Thank you for timely response to this clarification. Monisha Alegria MSN, RN Clinical Asset Card Clerk [phone] [email or web address] PHYSICIAN RESPONSE: Based on the clinical findings in the record, please respond to the query above on this document as an addendum. Physician Response: Physician Response 1 If you have questions please contact: Window Treatment Installer: Ext: Thank you for your time and cooperation. Clinical Asset Card Clerk/Window Treatment Installer This is a permanent part of the medical record MONISHA ALEGRIA Jul 31, 2021 19:09 NAPOLEON AKHTAR DO Aug 01, 2021 12:46
--- NOTE | 2021-07-31 19:20 | Physician Query Clarification ---
Physician Query-General Query to Physician: The medical record reflects the following clinical evidence: Clinical Indicators: Advance age, Not on home 02, Weakness, Altered mental status Risk Factor(s): Admission RR 24, consistently 20 -24, SOA at rest with accessory muscle use, 90% on RA, abd 88% on 3L (P/F = 172), "Low 02 sat" prior to arrival, Currently on 6L per MI Treatment: Supplemental 02, Albuterol, Radiology studies 1. Acute respiratory failure with hypoxia, present on admission 2. Other explanation of clinical findings 3. Unable to determine (no explanation for clinical findings) Please clarify and document your clinical opinion in the progress notes and discharge summary including the definitive and/or presumptive diagnosis, (suspected or probable), related to the above clinical findings. Please include clinical findings supporting your diagnosis. Monisha Tyson [phone] [email or web address] PHYSICIAN RESPONSE: Based on the clinical findings in the record, please respond to the query above on this document as an addendum. Physician Response: Physician Response 2 If you have questions please contact: Staff Writer: Ext: Thank you for your time and cooperation. Clinical Application Project Leader/Staff Writer This is a permanent part of the medical record MONISHA TYSON Jul 31, 2021 19:20 NAPOLEON AKHTAR DO Aug 01, 2021 12:49
[2021-08-01] MEDS: LORazepam INJ 2 MG/ML (ATIVAN) VIAL IVP PRN ×5 (05:40→18:44)
--- NOTE | 2021-08-01 08:59 | Progress Note ---
Subjective Subjective Date Seen by Provider: Aug 01, 2021 Time Seen by Provider: 08:35 Upon follow-up for severe dehydration and acute renal failure, Pierre remains on comfort-care measures and is presently supine in bed and sleeping. He continues to take frequent, shallow breaths, and is unresponsive to verbal que stioning. He is accompanied by his daughter, Bette, at bedside. Review of Systems ROS Unable to Obtain: Does not respond verbally General: Fatigue, Malaise, Appetite (DECREASED) Pulmonary: Dyspnea Gastrointestinal: No: Nausea Neurological: Weakness, Other (Depressed affect) Objective Exam Vital Signs Vital Signs Date Time Temp Pulse Resp B/P (MAP) Pulse Ox O2 Delivery O2 Flow Rate FiO2 07/31/21 20:00 Nasal Cannula 6.00 07/31/21 19:33 Nasal Cannula 2.50 I & O 08/01/21 07:00 Intake Total 0 ml Output Total 590 ml Balance -590 ml General Appearance: No Apparent Distress, Chronically ill, Cachetic Neck: Supple Respiratory: Decreased Breath Sounds, Other (Rapid and shallow breaths) Cardiovascular: Regular Rate, Rhythm, Systolic Murmur, Tachycardia Gastrointestinal: Normal Bowel Sounds, Non Tender, Soft Rectal: Deferred Back: No CVA Tenderness Extremity: Normal Inspection, Non Tender, No Pedal Edema, Swelling (Compression sleeve in place) Neurologic/Psychiatric: Other (Does not respond to verbal commands or questioning) Skin: Warm/Dry Assessment/Plan Assessment/Plan Assessment and Plan 1. Severe Dehydration with Acute Renal Failure, Hypernatremia, Leukocytosis, Polycythemia, and Thrombocytopenia 2. Hypotension 3. History of atrial fibrillation 4. Elevated Troponi-I -Due to syncopal episode with brief hypoxic episode--cardiology consulted 5. Syncopal episode due to hypotension and severe dehydration 6. Poor oral intake with Cachexia and history of dysphagia with aspiration risk 7. Weakness 8. History of Seizure 9. Parkinson's 10. Tachycardia 11. L arm edema, recurrent -Compression sleeve in place Pierre remains on comfort-care measures. I anticipate he will pass away within the next 24 hours. Supervisory-Addendum Brief Verification & Attestation Participated in pt care: history, physical Personally performed: exam, history, supervision of care Care discussed with: Medical Student Procedures: n/a Results interpretation: Verified all documentation Patient seen and assessed. Breathing much more labored and unresponsive since last evening according to daughter. Was started on Morphine and Ativan was increased yesterday due to work of breathing and seems to be resting comfortably. Anticipate that he will pass soon. Daughter aware of declining condition. Will continue with comfort care orders. DEISY RIBEIRO Aug 01, 2021 08:58 NAPOLEON AKHTAR DO Aug 01, 2021 12:44
[2021-08-01] MEDS: morphine INJ 4 MG/ML 1 ML (VIAL/SYRINGE) IV PRN ×4 (09:39→18:44)
== END 2021-08-01 20:30 | disposition expired | DRG 682 ==
LOC: ER 09:38 → 4TH 12:49
PROVIDERS: ADMIT Family Medicine; ATTEND Family Medicine
DX: N17.9 Acute kidney failure, unspecified (principal); I21.A1 Myocardial infarction type 2; E87.0 Hyperosmolality and hypernatremia; R64 Cachexia; I48.19 Other persistent atrial fibrillation; E86.0 Dehydration; Z88.5 Allergy status to narcotic agent; Z79.899 Other long term (current) drug therapy; Z95.0 Presence of cardiac pacemaker; J45.909 Unspecified asthma, uncomplicated; I10 Essential (primary) hypertension; G20 Parkinson's disease; Z86.73 Personal history of transient ischemic attack (TIA), and cerebral infarction without residual deficits; N40.0 Benign prostatic hyperplasia without lower urinary tract symptoms; M19.90 Unspecified osteoarthritis, unspecified site; G89.29 Other chronic pain; M54.9 Dorsalgia, unspecified; F32.A Depression, unspecified; Z66 Do not resuscitate; Z51.5 Encounter for palliative care; R41.82 Altered mental status, unspecified; Z87.891 Personal history of nicotine dependence; D72.829 Elevated white blood cell count, unspecified; I95.9 Hypotension, unspecified; R53.1 Weakness; D69.6 Thrombocytopenia, unspecified; R00.0 Tachycardia, unspecified; R60.9 Edema, unspecified; G40.909 Epilepsy, unspecified, not intractable, without status epilepticus; R62.51 Failure to thrive (child); E86.9 Volume depletion, unspecified; R09.02 Hypoxemia; I65.23 Occlusion and stenosis of bilateral carotid arteries; E78.5 Hyperlipidemia, unspecified; Z20.822 Contact with and (suspected) exposure to COVID-19; Z68.31 Body mass index [BMI] 31.0-31.9, adult
CPT/HCPCS: 36415; 51702; 70450; 71045; 80048; 80053; 80061; 80164; 81000; 82805; 83735; 83874; 83880; 84145; 84484; 85007; 85025; 85027; 85610; 85730; 86141; 87636; 93005; 93041; 94640; 94760